=== PATIENT | female | born 1935 | race Caucasian/White ===

== ENCOUNTER 2018-09-30 03:09 | Inpatient (IN) | payer OTHER, MEDICAID ==
[~2018-09-30] VITALS: Ht 175.3 cm; Wt 81.2 kg
[2018-09-30] VITALS (35 sets, daily range): BP systolic 66–151; BP diastolic 32–66
[~2018-09-30 03:09] MED LIST: ASPIR 8181 MG GT; ATORVASTATIN CA20 MG GT; CARAFATE1 G1 GT; CEFEPIME-D2 GM/50 ML IVPB; CLARITIN10 M2 GT; CRANBERRY425 MG GT; DOCUSATE S50 MG/5 ML GT; DUONEB 0.5-3(2.53 ML HHN; EXELON9.5 MG TD; KENALOG 0.1% CR15 GM TOPIC; MIRALAX17 G2 GT; MULTI-DELYN237 ML GT; NAMENDA10 MG GT; NOVOLOG100 UNITS1 SQ; NYSTATIN1 EAC1 TOPIC; TYLENOL325 MG GT; TYLENOL650 MG/20. GT; VANCOMYCIN1 GM/2502 IVPB; VITAMIN C500 MG/11 GT; ZOSYN 3.373.375 GM/1 IVPB
--- NOTE | 2018-09-30 03:20 | NUR ---
ED Nurse Note: pt brought in by ESTELA from [facility], c/o sob and hypotension, pt initially sat 86% but went up to 100% on nonrebreather, pt currently o2sat 96% on RA, noted low bp, 66/32, ERMD aware pt's condition, pt AA&ox0, confused, resp even and unlabored on RA, noted gtube, on bedrest, noted redness on coccyx, redness on right heel, will cont monitor. sinus tach on panel monitor.
--- NOTE | 2018-09-30 03:22 | Emergency Room Report ---
History of Present Illness General Source: Medical Record, EMS Present Illness HPI This is an 83-year-old female with multiple medical problems. She is a halfway patient is bedbound with feeding tube. She presents with chief complaint is altered mental status with respiratory distress, hypoxia, hypotension and warm to the touch. Onset tonight. She has a nonproductive cough. Unable to get any other history from this patient because of her condition. Allergies: Coded Allergies: SULFA (SULFONAMIDE ANTIBIOTICS) (Unverified Allergy, Unknown, 09/30/18) COPIED FROM UNCODED Patient History Past Medical History: see triage record, old chart reviewed, DM, HTN, CAD, CVA/ TIA Past Surgical History: other Pertinent Family History: none Social History: Denies: smoking Nursing Documentation-PMH Hx Cardiac Problems: Yes Hx Hypertension: Yes Hx Diabetes: Yes Hx Cancer: No Hx Gastrointestinal Problems: Yes Hx Neurological Problems: Yes Hx Dementia: Yes Review of Systems Constitutional: Reports: fever, weakness Eye: Denies: eye pain, blurred vision ENT: Denies: ear pain, nose congestion, throat swelling Respiratory: Reports: cough, shortness of breath Cardiovascular: Denies: chest pain, palpitations Gastrointestinal: Denies: abdominal pain, diarrhea, nausea, vomiting Musculoskeletal: Denies: back pain, joint pain Skin: Denies: rash Neurological: Denies: headache, numbness Endocrine: Denies: increased thirst, increased urine Hematologic/Lymphatic: Denies: easy bruising All Other Systems: negative except mentioned in HPI Physical Exam Sp02 EP Interpretation: abnormal General Appearance: mild distress Head: normocephalic, atraumatic Eyes: bilateral eye PERRL, bilateral eye EOMI ENT: hearing grossly normal, dry mucus membranes Neck: full range of motion, supple, no meningismus Respiratory: chest non-tender, decreased breath sounds, accessory muscle use, rhonchi Cardiovascular #1: regular rate, rhythm, no murmur Gastrointestinal: normal bowel sounds, non tender, no mass, no organomegaly, no bruit, non-distended Musculoskeletal: back normal, normal range of motion Neurologic: other - Moaning to painful stimuli Skin: warm/dry Procedures Critical Care Time Critical Care Time Critical care is mandated in this patient who presented with septic shock from uti. Patient require my urgent intervention to attenuate the risks of metabolic collapse which may lead to cardiovascular collapse and . Critical care time is 35 minutes excluding any reportable procedure. Critical care time included evaluation, multiple reevaluation, looking at old charts, interpreting laboratory and diagnostic data, discussing case with patient and family and consultants, and charting. Central Line Central Line : Consent: Emergent Central Line Lumen: triple Maximal Sterile Barrier Tech: yes cap, yes mask, yes sterile gown, yes sterile gloves, yes large sterile sheet, yes hand hygiene, yes chlorhexidine prep Central Line Postion: femoral (R) Anesthesia: Lidocaine cc's of anesthesia: 10 Complications: none Central Line Post Position: sutured, good blood return Attempts: One Patient Tolerated: Well Complications: None Medical Decision Making Diagnostic Impression: Primary Impression: Septic shock Additional Impressions: UTI (urinary tract infection) Qualified Codes: N30.00 - Acute cystitis without hematuria Acute metabolic encephalopathy Acute renal failure (ARF) Qualified Codes: N17.9 - Acute kidney failure, unspecified Anemia Qualified Codes: D64.9 - Anemia, unspecified ER Course Patient with septic shock from UTI. Blood pressure remained asystolic 70 to 80s after 3 L of fluid. I inserted a central line to start Levophed. Her mentation improved. She is able to talk more and able to complaining of pain IV insertion. Initially oxygenation was low and she has some coughing. Oxygenation remained 96-98% on room air. Chest x-rays clear. I discussed the case with Dr. East who will admit based on insurance. Lab Results Impression labs with elevated lactic acid and WBC EKG Diagnostic Results Rate: normal, tachycardiac Rhythm: NSR ST Segments: no acute changes Rhythm Strip Diag. Results EP Interpretation: yes Rate: 88 Rhythm: NSR, no PVC's, no ectopy Status: improved Disposition: ADMITTED INPATIENT Condition: Critical Emory Patricia MD Sep 30, 2018 03:22
--- NOTE | 2018-09-30 03:50 | NUR ---
ED Nurse Note: pt rectal temp 100.3, ERMD notified, received verbal order for tylenol 650mg supp.
[2018-09-30] MEDS ORDERED: Acetaminophen 650 MG SUPP RECTAL ONE ×2 (03:55→04:00)
[2018-09-30 03:57] LABS: HEMATOCRIT 31.6 % (37.0-47.0); HEMOGLOBIN 10.2 G/DL (12.0-16.0); MEAN CORPUSCULAR VOLUME 104 FL (80-99); PLATELET COUNT 227 K/UL (150-450); RED BLOOD COUNT 3.05 M/UL (4.20-5.40); RED CELL DISTRIBUTION WIDTH 13.7 % (11.6-14.8)
[2018-09-30 03:57] LABS: APPEARANCE,URINE CLOUDY; BILIRUBIN, URINE NEGATIVE (NEGATIVE); GLUCOSE, URINE (UA) NEGATIVE (NEGATIVE); KETONES,URINE NEGATIVE (NEGATIVE); LEUKOCYTE ESTERASE ,URINE 3+ (NEGATIVE); NITRITE,URINE NEGATIVE (NEGATIVE); PH,URINE 7 (4.5-8.0); PROTEIN,URINE 3+ (NEGATIVE); UROBILINOGEN,URINE 1 MG/DL (0.0-1.0)
[2018-09-30 03:59] LABS: ANION GAP 14 mmol/L (5-15); BLOOD UREA NITROGEN 73 mg/dL (7-18); CALCIUM 8.7 MG/DL (8.5-10.1); CARBON DIOXIDE 25 MMOL/L (21-32); CHLORIDE 103 MMOL/L (98-107); CREATININE 3.5 MG/DL (0.55-1.30); POTASSIUM 3.9 MMOL/L (3.5-5.1); SODIUM 142 MMOL/L (136-145); WHITE BLOOD COUNT 36.5 K/UL (4.8-10.8)
[2018-09-30 04:01] LABS: COLOR,URINE YELLOW
[2018-09-30 04:23] LABS: ALANINE AMINOTRANSFERASE 37 U/L (12-78); ALBUMIN 2.2 G/DL (3.4-5.0); ALBUMIN/GLOBULIN RATIO 0.4 (1.0-2.7); ALKALINE PHOSPHATASE 110 U/L (46-116); ASPARTATE AMINO TRANSFERASE 27 U/L (15-37); BILIRUBIN,TOTAL 0.5 MG/DL (0.2-1.0); CKMB < 0.5 NG/ML (0.0-3.6); CREATINE KINASE 203 U/L (26-308)
--- NOTE | 2018-09-30 04:23 | NUR ---
ED Nurse Note: pt care endorsed to DAKOTA garner and gave report.
[2018-09-30] MEDS ORDERED: Cefepime HCl 1 GM in D5W 55 ML IVPB ONE (04:30)
--- NOTE | 2018-09-30 05:07 | NUR ---
ED Nurse Note: spoke with Yashira clinical coordinator for admission.
--- NOTE | 2018-09-30 06:00 | NUR ---
ER Nurse Note: Central line inserted right groin; infusing levo startimg 15 mcg/min. Monitoring BP. Temp at 96.6 rectal. Pt asleep; no signs of a/e. Bed in lowest position. Attempted to call report to ICU nurse, nurse busy and said they will call back. Will continue to monitor.
--- NOTE | 2018-09-30 06:50 | NUR ---
ER Nurse Note: Gave report to DAKOTA Brian in ICU. Per ICU request, transfer pt after 0700. Pt stable, maintaining average BP of 97/41. All safety measures met; will continue to monitor.
--- NOTE | 2018-09-30 07:25 | NUR ---
ER Nurse Note: Gave report to DAKOTA Mayen in ICU for continuity of care. Pt on levo, 8 mcg/min, stable BP; tolerating well. No signs of distress.
--- NOTE | 2018-09-30 07:30 | NUR ---
NURSE NOTES: Report received from DAKOTA Larid. patient is asleep, responds to deep pain. Patient on RA, Spo2 96%, RR 16. No s/sx of distress noted. breath sounds are diminished with crackles. FC draining yellow urine with sediments. Afebrile. bilateral heels redness noted, pictures taken and uploaded. Pt has a right femoral TLC running levophed at 8mcg/kg/hr, BP 106/59, MAP 63. PEG noted, dressing clean and intact, NPO, clamped. NSR on air sampling and monitoring. Bed locked, alarmed and in lowest position.
--- NOTE | 2018-09-30 09:23 | NUR ---
NURSE NOTES: continue levophed 8mcg/kg/hr, BP 91/53. Patient still sleeping but able to arouse.
[2018-09-30] MEDS ORDERED: Vancomycin 1gm/D5W 275ml IVPB SCH ×2 (11:00)
[2018-09-30] MEDS ORDERED: NovoLOG Insulin Flexpen SUBQ SCH (11:30)
--- NOTE | 2018-09-30 11:30 | NUR ---
NURSE NOTES: Turned and repositioned. Started GTF: G1.2@25ml/hr. Flushed with 60cc free water, HOB 35 degrees.
--- NOTE | 2018-09-30 11:46 | History and Physical Report ---
DATE OF ADMISSION: 09/30/2018 HISTORY OF PRESENT ILLNESS: This 83-year-old female with a history of multiple medical problems. She is a Full Code. She was sent from a senior care with a G-tube in place. Apparently, she was found to have a change in mental status and also had respiratory distress and hypoxia. She was also found to be hypotensive. She was seen and worked up in the ER. She was found to have pyuria on assessment. She is also in septic shock, requiring pressors. A central line was placed in the femoral vein and she is now in the ICU under my care. PAST MEDICAL HISTORY: Notable for, 1. Chronic renal insufficiency/failure. 2. diabetes mellitus. 3. COPD. 4. Dementia. 5. Hypertension. 6. History of duodenal ulcer. 7. GERD. 8. Chronic gastrostomy. 9. Osteoarthrosis. 10. Metabolic encephalopathy, chronic. 11. Hypernatremia. 12. Hypertensive heart disease. 13. Chronic diastolic heart failure. 14. Anemia. 15. Hyperlipidemia. MEDICATIONS: Her list of home medications include Lipitor, Colace, Exelon patch, Humalog, iron, Namenda, multivitamins, Zantac, Tylenol, and vitamin C. ALLERGIES: Noted to sulfa. PAST SURGICAL HISTORY: Chronic surgery notable for G-tube placement. CODE STATUS: Full. REVIEW OF SYSTEMS: Not obtainable. PHYSICAL EXAMINATION: GENERAL: Reveals an 83-year-old female. HEENT: Unremarkable. CHEST: Shows decreased breath sounds bilaterally. CARDIOVASCULAR: Heart sounds normal, S1 and S2 without murmurs. EXTREMITIES: There is no edema. A Scales is in place. G-tube in place. There are no obvious decubiti. IMAGING DATA: X-ray of chest is unremarkable. LABORATORY DATA: Lab testing shows white count 36,000, hemoglobin 10.2, and platelet count is normal. Chemistries notable for creatinine 3.5. Lactic acid 2.9, now it is 2.3. Troponin 0.68. Coags are normal. Urinalysis shows too numerous to count wbc. IMPRESSION: 1. Pyuria. 2. Urosepsis. 3. Septic shock. 4. Diabetes mellitus. 5. Hypertension. 6. Diastolic heart failure. 7. Dementia. 8. Chronic encephalopathy. 9. senior care resident. 10. Chronic G-tube. DISCUSSION: Admitted to ICU. We will initiate pressors for hypotension. We will start broad-spectrum IV antibiotics. Await urine culture. IV fluids to be given. DVT prophylaxis. Insulin sliding scale. Enteral feedings. We will follow carefully. Maxim East M.D. DR: MARY JANE JOB#: [id number] CC:
[2018-09-30] MEDS: cefTRIAXone 1 GM in D5W 55 ML IVPB SCH (11:58)
--- NOTE | 2018-09-30 16:37 | NUR ---
NURSE NOTES: Increased Levophed to 10mcg/kg/hr. BP 80/56, MAP 43. Will continue to monitor.
--- NOTE | 2018-09-30 17:51 | NUR ---
NURSE NOTES: Decreased Levophed to 8mcg/kg/hr as patient's BP dropped to 78/81. Will continue to monitor.
[2018-09-30] MEDS: NovoLOG Insulin Flexpen SUBQ SCH ×2 (18:00→23:37)
--- NOTE | 2018-09-30 19:42 | NUR ---
HAND-OFF: Report given to DAKOTA Brian using SBAR. Patient observed asleep but able to arouse. BP 103/48.
--- NOTE | 2018-09-30 19:50 | NUR ---
NURSE NOTES: PATIENT OPEN EYES, DID NOT FOLLOW COMMANDS, RESPIRATION REGULAR, TACH[place]NEA 22-24/MIN NOTED ON ROOM AIR, O2 SATURATION OVER 96%, ABDOMEN SOFT, HYPOACTIVE BOWEL SOUND TO 4 QUADRANTS, G TUBE INTACT AND PATENT, ONGOING GLUCERNA 1.2 AT 40ML/HR, NO RESIDUE NOTED, KEPT HOB OVER 30 DEGREE, F/C INTACT AND PATENT, YELLOW WITH SEDIMENTS URINE OUTED GRAVITY, TLC TO RIGHT FEMORAL, PERIPHERAL LINE TO RIGHT AC 18G AND LEFT WRIST 20G INTACT AND PATENT, ONGOING IV FLUID NS AT 100ML/HR AND LEVOPHED 8MCG/MIN VIA TLC, MADE LOWER BED POSITION, PROVIDED CALL LIGHT WITHIN REACH, WILL CONTINUE TO MONITOR.
[2018-09-30] MEDS ORDERED: Dyna-Hex 2% Top Sol 2oz TOPIC SCH (20:00)
[2018-09-30] MEDS: Heparin 5000 units/ml inj SUBQ SCH (21:16)
--- NOTE | 2018-09-30 22:00 | NUR ---
NURSE NOTES: REPOSITIONED, ORAL CARE WAS DONE, NO PAIN OR DISTRESS NOTED AT THIS TIME.
--- NOTE | 2018-09-30 23:15 | NUR ---
NURSE NOTES: INCREASED LEVOPHED TO 10MCG/MIN DUE TO BELOW MAP 60, WILL CONTINUE TO MONITOR.
[2018-10-01] VITALS (46 sets, daily range): BP systolic 78–126; BP diastolic 30–87
--- NOTE | 2018-10-01 00:05 | NUR ---
NURSE NOTES: TEMP 100.1F NOTED, APPLIED COOLING MEASURE, WILL CONTINUE TO MONITOR.
--- NOTE | 2018-10-01 01:40 | NUR ---
NURSE NOTES: CLEANED THE PATIENT DUE TO BOWEL MOVEMENT, GREENISH SOFT MODERATE OUTED.
--- NOTE | 2018-10-01 04:00 | NUR ---
NURSE NOTES: MORNING CARE WAS DONE, RESISTANCE TO CARE.
[2018-10-01] MEDS: NovoLOG Insulin Flexpen SUBQ SCH ×4 (06:02→23:50)
[2018-10-01 06:06] LABS: HEMATOCRIT 26.4 % (37.0-47.0); HEMOGLOBIN 8.7 G/DL (12.0-16.0); MEAN CORPUSCULAR VOLUME 105 FL (80-99); PLATELET COUNT 205 K/UL (150-450); RED BLOOD COUNT 2.52 M/UL (4.20-5.40); RED CELL DISTRIBUTION WIDTH 13.8 % (11.6-14.8); WHITE BLOOD COUNT 21.1 K/UL (4.8-10.8)
[2018-10-01 06:16] LABS: ANION GAP 14 mmol/L (5-15); BLOOD UREA NITROGEN 55 mg/dL (7-18); CALCIUM 7.4 MG/DL (8.5-10.1); CARBON DIOXIDE 20 MMOL/L (21-32); CHLORIDE 110 MMOL/L (98-107); CREATININE 2.6 MG/DL (0.55-1.30); POTASSIUM 3.3 MMOL/L (3.5-5.1); SODIUM 143 MMOL/L (136-145)
--- NOTE | 2018-10-01 07:05 | NUR ---
HAND-OFF: Report given to DAKOTA HOLT.
--- NOTE | 2018-10-01 07:09 | NUR ---
NURSE NOTES: Received pt from DAKOTA Brina. pt is awake, non-verbal and confused. Tracks eyes sometimes. Patient is on RA, Spo2 96%. No facial grimacing or wincing noted. Patient axillary temp is 100.8, awaiting for reply from PMD for Tylenol. Right femoral TLC running levophed 10mcg/kg/hr. BP 103/46, MAP 80. RAC 18G and LW 20G running NS@100cc/hr. Breathing even and unlabored. bilateral breath sounds diminished with crackles. Patient has a PEG running glucerna 1.2@40cc/hr, no residual noted, HOB 35 degrees, normoactive bowel sounds. Bed locked, alarmed and in lowest position. Will continue plan of care.
--- NOTE | 2018-10-01 07:37 | NUR ---
NURSE NOTES: Paged Dr. East regarding potassium=3.3 and axillary temp of 100.8. patient has no PRN Tylenol orders. Cooling measures applied.
[2018-10-01] MEDS: Pantoprazole Inj IV SCH (08:30)
[2018-10-01] MEDS: Heparin 5000 units/ml inj SUBQ SCH ×2 (08:31→20:41)
[2018-10-01] MEDS ORDERED: Vancomycin 1.25gm Premix IVPB SCH (09:00)
--- NOTE | 2018-10-01 09:04 | NUR ---
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 [place] [facility] CC:Dyspnea/ Respiratory Distress SI:Sepsis, UTI VS: BP 66/32, P 120, T 100.3, RR 20, SpO2 96 on Room Air WBC 36.5, RBC 3.05, Urine Protein 3+, Urine Blood 4+, Urine Bacteria MANY IS:Norepinephrine IV Vancomycin IVPB NS IV x1L NovoLog SUBQ Ceftriaxone IVPB Chlorhexidine TOPICAL ICU STATUS DC TO [facility]
--- NOTE | 2018-10-01 09:19 | NUR ---
NURSE NOTES: Received orders for Tylenol 650mg GT Q4hrs and K-dur 40meq GT x1. Read back given and verified.
--- NOTE | 2018-10-01 09:50 | Pulmonology Progress Note ---
Assessment/Plan Assessment/Plan IMPRESSION: 1. Pyuria. 2. Urosepsis. 3. Septic shock. 4. Diabetes mellitus. 5. Hypertension. 6. Diastolic heart failure. 7. Dementia. 8. Chronic encephalopathy. 9. senior living resident. 10. Chronic G-tube. 11. Hypokalemia DISCUSSION: Continue pressors for hypotension. Continue broad-spectrum IV antibiotics. Await urine culture. IV fluids to be given. DVT prophylaxis. Insulin sliding scale. Enteral feedings. I will follow carefully. Subjective Interval Events: Remains on pressors; K low Constitutional: Reports: no symptoms HEENT: Repors: no symptoms Respiratory: Reports: no symptoms Cardiovascular: Reports: no symptoms Gastrointestinal/Abdominal: Reports: no symptoms Genitourinary: Reports: no symptoms Allergies: Coded Allergies: SULFA (SULFONAMIDE ANTIBIOTICS) (Unverified Allergy, Unknown, 09/30/18) COPIED FROM UNCODED Objective Last 24 Hour Vital Signs Date Time Temp Pulse Resp B/P (MAP) Pulse Ox O2 Delivery O2 Flow Rate FiO2 10/01/18 08:37 109/41 10/01/18 08:00 Room Air 10/01/18 06:30 93 27 109/41 (63) 99 10/01/18 06:00 99.8 101 31 111/45 (67) 96 10/01/18 06:00 111/45 10/01/18 05:30 100 26 114/54 (74) 97 10/01/18 05:00 93 29 112/51 (71) 96 10/01/18 05:00 112/51 10/01/18 04:30 96 27 105/46 (65) 97 10/01/18 04:00 Room Air 10/01/18 04:00 113/52 10/01/18 04:00 99.3 99 30 113/52 (72) 95 10/01/18 03:49 99 10/01/18 03:30 102 27 119/52 (74) 97 10/01/18 03:00 108/52 10/01/18 03:00 97 29 108/52 (70) 98 10/01/18 02:30 95 27 112/46 (68) 97 10/01/18 02:00 112/49 10/01/18 02:00 95 29 112/49 (70) 96 10/01/18 01:39 114/48 10/01/18 01:30 94 27 114/48 (70) 93 10/01/18 01:00 98 26 100/48 (65) 97 10/01/18 01:00 100/48 10/01/18 00:30 103 26 108/46 (66) 97 10/01/18 00:15 107 10/01/18 00:00 105/45 10/01/18 00:00 100.1 94 26 105/45 (65) 97 10/01/18 00:00 Room Air 09/30/18 23:30 90 26 101/42 (61) 97 09/30/18 23:15 93/43 09/30/18 23:00 89 26 96/46 (63) 97 09/30/18 22:30 87 26 96/45 (62) 97 09/30/18 22:00 91 26 93/44 (60) 97 09/30/18 21:30 87 26 95/49 (64) 97 09/30/18 21:00 86 27 105/51 (69) 97 09/30/18 21:00 105/51 09/30/18 20:30 84 19 107/50 (69) 97 09/30/18 20:00 Room Air 09/30/18 20:00 102/49 09/30/18 20:00 99.2 85 22 102/49 (66) 97 09/30/18 19:56 100 09/30/18 19:30 85 29 103/48 (66) 97 09/30/18 19:00 97/51 09/30/18 19:00 82 16 102/56 (71) 96 09/30/18 18:30 83 16 87/52 (64) 96 09/30/18 18:00 85 16 80/44 (56) 96 09/30/18 17:30 88 17 122/51 (74) 95 09/30/18 17:10 87/40 09/30/18 17:00 86 18 151/66 (94) 96 09/30/18 16:30 82 16 105/50 (68) 96 09/30/18 16:04 81 09/30/18 16:00 98.7 81 16 94/47 (63) 97 09/30/18 16:00 Room Air 09/30/18 15:30 79 13 87/40 (56) 97 09/30/18 15:00 79 15 97/42 (60) 97 09/30/18 14:30 84 14 92/47 (62) 98 09/30/18 14:00 78 14 94/49 (64) 98 09/30/18 13:30 75 14 89/49 (62) 98 09/30/18 13:00 79 14 112/51 (71) 98 09/30/18 12:30 75 14 104/49 (67) 98 09/30/18 12:00 97.6 75 14 88/48 (61) 98 09/30/18 12:00 79 09/30/18 12:00 Room Air 09/30/18 11:30 75 14 101/51 (68) 98 09/30/18 11:00 75 14 101/51 (68) 98 09/30/18 10:30 76 14 107/58 (74) 96 09/30/18 10:00 78 14 111/64 (80) 96 Intake and Output 09/30/18 10/01/18 18:59 06:59 Intake Total 3775 ml 2091.0 ml Output Total 900 ml 865 ml Balance 2875 ml 1226.0 ml Intake Free Water 60 ml IV Total 3500 ml 1611.0 ml Tube Feeding 215 ml 480 ml Output Urine Total 900 ml 865 ml # Voids 2 # Bowel Movements 2 General Appearance: no acute distress HEENT: normocephalic Respiratory/Chest: chest wall non-tender, lungs clear Cardiovascular: normal peripheral pulses, normal rate Abdomen: normal bowel sounds, soft, non tender Microbiology Date/Time Source Procedure Growth Status 09/30/18 02:25 Blood Blood Culture - Preliminary NO GROWTH AFTER 24 HOURS Resulted 09/30/18 02:10 Blood Blood Culture - Preliminary NO GROWTH AFTER 24 HOURS Resulted 09/30/18 03:35 Urine,Clean Catch Urine Culture - Preliminary Gram Negative Bacillus 1 Resulted Laboratory Tests 09/30/18 09:55: Lactic Acid Level 1.30, Troponin I 0.037 10/01/18 05:20: Troponin I 0.034, White Blood Count 21.1H, Red Blood Count 2.52L, Hemoglobin 8.7L, Hematocrit 26.4L, Mean Corpuscular Volume 105H, Mean Corpuscular Hemoglobin 34.5H, Mean Corpuscular Hemoglobin Concent 32.9, Red Cell Distribution Width 13.8, Platelet Count 205, Mean Platelet Volume 9.4, Neutrophils (%) (Auto) , Lymphocytes (%) (Auto) , Monocytes (%) (Auto) , Eosinophils (%) (Auto) , Basophils (%) (Auto) , Differential Total Cells Counted 100, Neutrophils % (Manual) 84H, Lymphocytes % (Manual) 13L, Monocytes % (Manual) 3, Eosinophils % (Manual) 0, Basophils % (Manual) 0, Band Neutrophils 0, Platelet Estimate Adequate, Platelet Morphology Normal, Macrocytosis 1+, Sodium Level 143, Potassium Level 3.3L, Chloride Level 110H, Carbon Dioxide Level 20L, Anion Gap 14, Blood Urea Nitrogen 55H, Creatinine 2.6H , Estimat Glomerular Filtration Rate , Glucose Level 205H, Calcium Level 7.4L, Random Vancomycin Level 11.1 Current Medications Medications (Trade) Dose Ordered Sig/Chandu Route PRN Reason Start Time Stop Time Status Last Admin Dose Admin Acetaminophen (Tylenol) 650 mg Q4H PRN ORAL Mild Pain/Temp > 100.5 10/01/18 09:30 10/31/18 09:29 Ceftriaxone Sodium 1 gm/ Dextrose 55 ml @ 110 mls/hr Q24H IVPB 09/30/18 12:00 10/07/18 11:59 09/30/18 11:58 Chlorhexidine Gluconate (Sue-Hex 2%) 1 applic DAILY@2000 TOPIC 09/30/18 20:00 10/30/18 19:59 09/30/18 20:03 Dextrose (Dextrose 50%) 25 ml Q30M PRN IV Hypoglycemia 09/30/18 09:30 10/30/18 09:29 Dextrose (Dextrose 50%) 50 ml Q30M PRN IV Hypoglycemia 09/30/18 09:30 10/30/18 09:29 Heparin Sodium (Porcine) (Heparin 5000 units/ml) 5,000 units EVERY 12 HOURS SUBQ 09/30/18 21:00 10/30/18 20:59 10/01/18 08:31 Insulin Aspart (NovoLOG) Q6HR SUBQ 09/30/18 18:00 10/30/18 17:59 10/01/18 06:02 Norepinephrine Bitartrate 4 mg/ Dextrose 250 ml @ 0 mls/hr Q24H IV 09/30/18 17:00 10/30/18 16:59 10/01/18 08:37 Pantoprazole (Protonix) 40 mg DAILY IV 10/01/18 09:00 10/31/18 08:59 10/01/18 08:30 Potassium Chloride (K-Dur) 40 meq ONCE GT 10/01/18 09:30 10/01/18 10:30 10/01/18 09:35 Sodium Chloride 1,000 ml @ 100 mls/hr Q10H IVLG 09/30/18 10:00 10/30/18 09:59 09/30/18 23:39 Vancomycin HCl (Vanco rx to dose) 1 ea DAILY PRN MISC Per rx protocol 09/30/18 09:30 10/30/18 09:29 Vancomycin HCl/ Dextrose 275 ml @ 183.333 mls/hr ONCE IVPB 10/01/18 09:00 10/01/18 11:00 10/01/18 08:40 Maxim East MD Oct 01, 2018 09:50
--- NOTE | 2018-10-01 10:15 | NUR ---
RD ASSESSMENT & RECOMMENDATIONS SEE CARE ACTIVITY FOR COMPLETE ASSESSMENT DAILY ESTIMATED NEEDS: Needs based on sepsis, dm, TF ON SITE SOIL EVALUATOR 69kg 22-27 kcals/kg 0105-8059 total kcals 1-2 g protein/kg 69-138 g total protein 20-25 mL/kg 9216-3474 total fluid mLs NUTRITION DIAGNOSIS: 1) Increased kcal and protein needs r/t sepsis as evidenced by pt w/ critically elev WBC on adm (36.5), elev BG, febrile, on pressor support. 2) Chewing/ swallowing difficulty r/t dysphagia as evidenced by pt is GT dep. CURRENT TF: Glucerna 1.2 @40ml ENTERAL NUTRITION RECOMMENDATIONS: Glucerna 1.2 @55ml/hr x24 hrs to provide 1320ml, 1584 kcal, 79g prot, 1063ml free H2O - WITH HEMODYNAMIC STABILITY rec to increase TF goal by 10ml/hr q4-6 hrs to goal of 55ml/hr to better meet est needs - Flush per MD. HOB over 30 degrees On pressor support-> rec trophic feeds of 5-10ml/hr ADDITIONAL RECOMMENDATIONS: 1) Feed to goal w/ hemodynamic stability 2) Check lytes daily, replete as needed 3) Glycemic control 4) F/ up w/ WC eval for BL DTI 5) Calibrated bed scale wts
[2018-10-01] MEDS ORDERED: Heparin1,000 units/500ml Premix(Conc:2 units/ml) IV PRN (10:45)
[2018-10-01] MEDS ORDERED: Lidocaine 1% Plain 30 ml INJ PRN (10:45)
--- NOTE | 2018-10-01 10:47 | NUR ---
NURSE NOTES: Called several family members on facesheet to obtain telephone consent for PICC line insertion. Unable to reach and left voicemail. Awaiting for call back.
--- NOTE | 2018-10-01 12:00 | NUR ---
NURSE NOTES: Increased Levophed back to 8cg/kg/hr as patient's BP is 75/33, MAP 40.
[2018-10-01] MEDS: cefTRIAXone 1 GM in D5W 55 ML IVPB SCH (12:54)
--- NOTE | 2018-10-01 14:34 | NUR ---
NURSE NOTES: Pt is asleep, no s/sx of acute distress. Turned and repositioned. kept dry and clean.
--- NOTE | 2018-10-01 16:03 | Infectious Diseases Prog Note ---
Assessment/Plan Assessment/Plan Full consult dictated: A) 1) severe sepsis, shock, gram neg uti, sirs, leukocytosis, fevers, ? other source 2) allergies - sulfa 3) pmh noted P) 1) meropenem and vancomycin 2) check cultures, labs and chest x-ray 3) thank you Subjective Allergies: Coded Allergies: SULFA (SULFONAMIDE ANTIBIOTICS) (Unverified Allergy, Unknown, 09/30/18) COPIED FROM UNCODED Objective Vital Signs Last 24 Hour Vital Signs Date Time Temp Pulse Resp B/P (MAP) Pulse Ox O2 Delivery O2 Flow Rate FiO2 10/01/18 14:00 105/53 10/01/18 14:00 86 16 105/53 (70) 99 10/01/18 13:30 86 16 95/48 (64) 99 10/01/18 13:00 86 16 97/46 (63) 99 10/01/18 13:00 97/46 10/01/18 12:30 86 20 117/53 (74) 99 10/01/18 12:00 113/55 10/01/18 12:00 Room Air 10/01/18 12:00 97.5 86 24 113/55 (74) 99 10/01/18 11:30 93 27 83/42 (56) 99 10/01/18 11:00 89 27 78/30 (46) 99 10/01/18 11:00 78/30 10/01/18 10:30 91 27 104/40 (61) 99 10/01/18 10:00 111/87 10/01/18 10:00 98.9 90 27 111/87 (95) 99 10/01/18 09:30 100.0 94 27 114/41 (65) 99 10/01/18 09:00 93 27 102/44 (63) 99 10/01/18 09:00 114/41 10/01/18 08:37 109/41 10/01/18 08:30 94 27 97/40 (59) 99 10/01/18 08:00 Room Air 10/01/18 08:00 100.3 95 27 107/47 (67) 99 10/01/18 07:30 101.3 94 27 110/40 (63) 99 10/01/18 07:00 100.8 94 27 106/49 (68) 99 10/01/18 06:30 93 27 109/41 (63) 99 10/01/18 06:00 99.8 101 31 111/45 (67) 96 10/01/18 06:00 111/45 10/01/18 05:30 100 26 114/54 (74) 97 10/01/18 05:00 93 29 112/51 (71) 96 10/01/18 05:00 112/51 10/01/18 04:30 96 27 105/46 (65) 97 10/01/18 04:00 Room Air 10/01/18 04:00 113/52 10/01/18 04:00 99.3 99 30 113/52 (72) 95 10/01/18 03:49 99 10/01/18 03:30 102 27 119/52 (74) 97 10/01/18 03:00 108/52 10/01/18 03:00 97 29 108/52 (70) 98 10/01/18 02:30 95 27 112/46 (68) 97 10/01/18 02:00 112/49 10/01/18 02:00 95 29 112/49 (70) 96 10/01/18 01:39 114/48 10/01/18 01:30 94 27 114/48 (70) 93 10/01/18 01:00 98 26 100/48 (65) 97 10/01/18 01:00 100/48 10/01/18 00:30 103 26 108/46 (66) 97 10/01/18 00:15 107 10/01/18 00:00 105/45 10/01/18 00:00 100.1 94 26 105/45 (65) 97 10/01/18 00:00 Room Air 09/30/18 23:30 90 26 101/42 (61) 97 09/30/18 23:15 93/43 09/30/18 23:00 89 26 96/46 (63) 97 09/30/18 22:30 87 26 96/45 (62) 97 09/30/18 22:00 91 26 93/44 (60) 97 09/30/18 21:30 87 26 95/49 (64) 97 09/30/18 21:00 86 27 105/51 (69) 97 09/30/18 21:00 105/51 09/30/18 20:30 84 19 107/50 (69) 97 09/30/18 20:00 Room Air 09/30/18 20:00 102/49 09/30/18 20:00 99.2 85 22 102/49 (66) 97 09/30/18 19:56 100 09/30/18 19:30 85 29 103/48 (66) 97 09/30/18 19:00 97/51 09/30/18 19:00 82 16 102/56 (71) 96 09/30/18 18:30 83 16 87/52 (64) 96 09/30/18 18:00 85 16 80/44 (56) 96 09/30/18 17:30 88 17 122/51 (74) 95 09/30/18 17:10 87/40 09/30/18 17:00 86 18 151/66 (94) 96 09/30/18 16:30 82 16 105/50 (68) 96 09/30/18 16:04 81 09/30/18 16:00 98.7 81 16 94/47 (63) 97 09/30/18 16:00 Room Air Height (Feet): 5 Height (Inches): 9.00 Weight (Pounds): 173 Microbiology Date/Time Source Procedure Growth Status 09/30/18 02:25 Blood Blood Culture - Preliminary NO GROWTH AFTER 24 HOURS Resulted 09/30/18 02:10 Blood Blood Culture - Preliminary NO GROWTH AFTER 24 HOURS Resulted 09/30/18 03:35 Urine,Clean Catch Urine Culture - Preliminary Gram Negative Bacillus 1 Resulted Laboratory Tests Test 10/01/18 05:20 White Blood Count 21.1 K/UL (4.8-10.8) H Red Blood Count 2.52 M/UL (4.20-5.40) L Hemoglobin 8.7 G/DL (12.0-16.0) L Hematocrit 26.4 % (37.0-47.0) L Mean Corpuscular Volume 105 FL (80-99) H Mean Corpuscular Hemoglobin 34.5 PG (27.0-31.0) H Mean Corpuscular Hemoglobin Concent 32.9 G/DL (32.0-36.0) Red Cell Distribution Width 13.8 % (11.6-14.8) Platelet Count 205 K/UL (150-450) Mean Platelet Volume 9.4 FL (6.5-10.1) Neutrophils (%) (Auto) % (45.0-75.0) Lymphocytes (%) (Auto) % (20.0-45.0) Monocytes (%) (Auto) % (1.0-10.0) Eosinophils (%) (Auto) % (0.0-3.0) Basophils (%) (Auto) % (0.0-2.0) Differential Total Cells Counted 100 Neutrophils % (Manual) 84 % (45-75) H Lymphocytes % (Manual) 13 % (20-45) L Monocytes % (Manual) 3 % (1-10) Eosinophils % (Manual) 0 % (0-3) Basophils % (Manual) 0 % (0-2) Band Neutrophils 0 % (0-8) Platelet Estimate Adequate Platelet Morphology Normal Macrocytosis 1+ Sodium Level 143 MMOL/L (136-145) Potassium Level 3.3 MMOL/L (3.5-5.1) L Chloride Level 110 MMOL/L (98-107) H Carbon Dioxide Level 20 MMOL/L (21-32) L Anion Gap 14 mmol/L (5-15) Blood Urea Nitrogen 55 mg/dL (7-18) H Creatinine 2.6 MG/DL (0.55-1.30) H Estimat Glomerular Filtration Rate mL/min (>60) Glucose Level 205 MG/DL (74-106) H Calcium Level 7.4 MG/DL (8.5-10.1) L Troponin I 0.034 ng/mL (0.000-0.056) Random Vancomycin Level 11.1 ug/mL Current Medications Medications (Trade) Dose Ordered Sig/Chandu Route PRN Reason Start Time Stop Time Status Last Admin Dose Admin Acetaminophen (Tylenol) 650 mg Q4H PRN ORAL Mild Pain/Temp > 100.5 10/01/18 09:30 10/31/18 09:29 Ceftriaxone Sodium 1 gm/ Dextrose 55 ml @ 110 mls/hr Q24H IVPB 09/30/18 12:00 10/07/18 11:59 10/01/18 12:54 Chlorhexidine Gluconate (Sue-Hex 2%) 1 applic DAILY@2000 TOPIC 10/01/18 20:00 10/31/18 19:59 Dextrose (Dextrose 50%) 25 ml Q30M PRN IV Hypoglycemia 09/30/18 09:30 10/30/18 09:29 Dextrose (Dextrose 50%) 50 ml Q30M PRN IV Hypoglycemia 09/30/18 09:30 10/30/18 09:29 Heparin Sodium (Porcine) (Heparin 5000 units/ml) 5,000 units EVERY 12 HOURS SUBQ 09/30/18 21:00 10/30/18 20:59 10/01/18 08:31 Heparin Sodium/ Sodium Chloride (Heparin 1000 units/500ml Premix) 1,000 unit ONCE PRN IV picc line placement 10/01/18 10:45 10/03/18 10:44 Insulin Aspart (NovoLOG) Q6HR SUBQ 09/30/18 18:00 10/30/18 17:59 10/01/18 12:55 Lidocaine HCl (Xylocaine 1% 30ml) 30 ml ONCE PRN INJ picc line placement 10/01/18 10:45 10/03/18 10:44 Norepinephrine Bitartrate 4 mg/ Dextrose 250 ml @ 0 mls/hr Q24H IV 09/30/18 17:00 10/30/18 16:59 10/01/18 08:37 Pantoprazole (Protonix) 40 mg DAILY IV 10/01/18 09:00 10/31/18 08:59 10/01/18 08:30 Sodium Chloride 1,000 ml @ 100 mls/hr Q10H IVLG 09/30/18 10:00 10/30/18 09:59 09/30/18 23:39 Vancomycin HCl (Vanco rx to dose) 1 ea DAILY PRN MISC Per rx protocol 09/30/18 09:30 10/30/18 09:29 Blanca Leigh MD Oct 01, 2018 16:03
--- NOTE | 2018-10-01 16:55 | NUR ---
*-* INSURANCE *-* AVAILABLE CLINICALS AND REVIEWS FAXED TO: [facility]# [id number]*[facility], [place]: [place] P- [phone] F- [phone]
--- NOTE | 2018-10-01 19:24 | NUR ---
HAND-OFF: Report given to DAKOTA Brian using SBAR.
--- NOTE | 2018-10-01 19:24 | NUR ---
NURSE NOTES: Turned and repositioned. Kept dry and clean. No call from family members for T/O PICC consent. endorsed to PM shift.
[2018-10-01] MEDS: Dyna-Hex 2% Top Sol 2oz TOPIC SCH (19:40)
--- NOTE | 2018-10-01 19:40 | NUR ---
NURSE NOTES: PATIENT OPEN EYES, DID NOT FOLLOW COMMANDS, RESPIRATION REGULAR, TACHYPNEA 26-28/MIN NOTED ON ROOM AIR, O2 SATURATION OVER 96%, ABDOMEN SOFT, HYPOACTIVE BOWEL SOUND TO 4 QUADRANTS, G TUBE INTACT AND PATENT, ONGOING GLUCERNA 1.2 AT 40ML/HR, NO RESIDUE NOTED, KEPT HOB OVER 30 DEGREE, F/C INTACT AND PATENT, YELLOW WITH SEDIMENTS URINE OUTED GRAVITY, TLC TO RIGHT FEMORAL, PERIPHERAL LINE TO RIGHT AC 18G AND LEFT WRIST 20G INTACT AND PATENT, ONGOING IV FLUID NS AT 100ML/HR AND LEVOPHED 8MCG/MIN VIA TLC, MADE LOWER BED POSITION, PROVIDED CALL LIGHT WITHIN REACH, WILL CONTINUE TO MONITOR.
--- NOTE | 2018-10-01 20:02 | Consultation ---
DATE OF CONSULTATION: 10/01/2018 CONSULTING PHYSICIAN: Jakub García M.D. REFERRING PHYSICIAN: Maxim East M.D. REASON FOR CONSULTATION: 1. Acute kidney injury. 2. Chronic kidney disease stage 4, baseline creatinine 1.5 to 2. HISTORY OF PRESENT ILLNESS: The patient is a pleasant 83-year-old female with known multiple medical problems. She was sent from senior living with a G-tube in place. Apparently, she had acute encephalopathy with change in mental status and respiratory distress. She was found to be hypotensive and transferred to intensive care unit in septic shock secondary to urinary tract infection. Her creatinine upon admission was elevated at 3.5 with a BUN of 73. The patient was aggressively hydrated and hemodynamically stable. Creatinine has improved to 2.6, BUN down to 55. PAST MEDICAL HISTORY: 1. CKD stage 4. 2. Diabetes mellitus. 3. Chronic obstructive pulmonary disease. 4. Dementia. 5. Hypertension. 6. Duodenal ulcer 7. GERD. 8. Chronic gastrostomy. 9. Osteoarthritis. 10. Metabolic encephalopathy. 11. Hypernatremia. 12. Hypertensive heart disease. 13. Chronic diastolic heart failure. 14. Anemia. 15. Hyperlipidemia. PAST SURGICAL HISTORY: G-tube placement. CURRENT MEDICATIONS: Reviewed on medications reconciliation list. ALLERGIES: Sulfa. REVIEW OF SYSTEMS: Cannot obtain as the patient is not answering questions coherently. FAMILY HISTORY: Positive for hypertension and diabetes. LABORATORY DATA: Labs dated October 01, 2018 sodium 143, potassium 3.3, BUN 55, creatinine 2.6, calcium 7.4. Hemoglobin 8.7, white cell count 21.1, and platelet count 205. PHYSICAL EXAMINATION: VITAL SIGNS: Blood pressure 109/41, respiratory rate 27, pulse 93, temperature 100, 99% oxygen saturation on room air. GENERAL: The patient awake, somnolent, but arousable. HEENT: Extraocular muscles intact. No lymphadenopathy. Oropharyngeal mucosa is clear and dry. CARDIOVASCULAR: S1 and S2. Upper airway rhonchi. Fair air movement in all hinson. ABDOMEN: Nondistended and nontender. G-tube noted. EXTREMITIES: Trace edema bilaterally. Fair pedal pulses. ASSESSMENT AND PLAN: 1. Acute kidney injury on chronic kidney disease, stage 4. Baseline creatinine 1.5 to 2. Currently, creatinine has improved to 2.5. 2. Acute tubular necrosis secondary to ischemic acute tubular necrosis from hypotension and inflammatory cytokine injury to proximal tubules from sepsis. At this time, continue aggressive hemodynamic stability along with aggressive antibiotic treatment for underlying urosepsis. 3. Urosepsis. Continue IV pressor support with Levophed and aggressive hydration. The patient currently hemodynamically stable. 4. Urinary tract infection. Continue IV antibiotics. 5. Nutrition per G-tube. 6. Dehydration. We will continue IV fluids. Let me take this opportunity to thank Dr. East. Jakub García MD DR: Kylie JOB#: [id number] CC:
--- NOTE | 2018-10-01 22:05 | NUR ---
NURSE NOTES: PATIENT SLEEPING ON AND OFF, KEPT LEVOPHED 8MCG/MIN, WILL CONTINUE PLAN OF CARE.
--- NOTE | 2018-10-01 22:45 | Consultation ---
DATE OF CONSULTATION: 10/01/2018 INFECTIOUS DISEASE CONSULTATION CONSULTING PHYSICIAN: Blanca Leigh M.D. ATTENDING PHYSICIAN: Maxim East M.D. REFERRING PHYSICIAN: Maxim East M.D. REASON FOR CONSULTATION: Sepsis, shock, leukocytosis, fevers, and gram-negative urinary tract infection. CHIEF COMPLAINT: The patient's chief complaint coming in to the hospital is sepsis and shock. HISTORY OF PRESENT ILLNESS: This is an 83-year-old female, who is in the intensive care unit at [facility]. The patient was admitted for sepsis, elevated white count, and shock. The patient is currently on 8 mcg of Levophed. The patient has a white count initially over 30,000. Infectious Disease consultation was requested for antibiotic management. The patient was placed on vancomycin and meropenem. The patient has a gram-negative urinary tract infection. She has also acute renal failure, has severe sepsis, SIRS criteria, leukocytosis, and fevers. The patient is already on vancomycin and meropenem for sepsis and gram-negative urinary tract infection, pending workup. MAR was noted. Orders were noted. Notes and records were noted. REVIEW OF SYSTEMS: CONSTITUTIONAL: The patient has a Scales. She is on pressors. She is mostly nonverbal. Currently, no fever. She did come in with fevers. She is on pressors. HEAD AND NECK: No head pain or neck pain. CARDIAC: No chest pain. GASTROINTESTINAL: No nausea, vomiting, abdominal pain, or diarrhea. GENITOURINARY: She has a Scales. PULMONARY: No significant congestion or shortness of breath. SKIN: No rash. EXTREMITY: Could not assess. NEUROLOGIC: No seizures. PAST MEDICAL HISTORY: The patient's past medical history includes the following. The patient has a past medical history of chronic renal failure, elevated creatinine, diabetes mellitus, history of dementia, history of hypertension, history of chronic obstructive pulmonary disease, history of peptic ulcer disease or duodenal ulcers or GERD, history of gastrostomy, osteoarthritis, metabolic encephalopathy, hypernatremia, hypertensive heart disease, chronic diastolic heart failure, anemia, and hyperlipidemia. MEDICATIONS: Upon reviewing the MAR, she is on the following medications. She is on chlorhexidine, heparin, acetaminophen, pantoprazole, heparin, and insulin. She is on norepinephrine 8 mcg. She was on Rocephin and put on vancomycin and meropenem. She is on IV fluids. Vancomycin is being dosed by pharmacy. Outside medications were noted and reconciliated. ALLERGIES: She has allergies to sulfa drugs. FAMILY HISTORY: Noncontributory. SOCIAL HISTORY: Negative for smoking, alcohol, or drug abuse. PHYSICAL EXAMINATION: VITAL SIGNS: Temperature is 97.5, pulse 86, respiratory rate 16, blood pressure 105/53, and saturation 99%. T-max 101.3. Heart rate has been as high as 107. GENERAL: Alert and responsive, no acute distress. HEAD AND NECK: Oral exam, no thrush. Eye exam, no icterus. Neck is supple. No JVD. Normocephalic. No icterus or thrush. HEART: Regular. No gallop. No murmur. No friction rub. ABDOMEN: Soft. Positive bowel sounds. Nontender. LUNGS: Few bilateral rhonchi. No definite rales. SKIN: No rash. MUSCULOSKELETAL: No effusion. Legs are without cellulitis. PERIPHERAL VASCULAR: No cyanosis. GENITOURINARY: She has a Scales. Urine is cloudy. LINE SITES: Without phlebitis. NEUROLOGIC: Generalized weakness and responsive. LABORATORY DATA: Laboratory data is as follows: White count was as high as 36.5, white count now is 21.1, hemoglobin 8.7. Creatinine is 2.6. Urinalysis had 3+ leukocyte esterase, too many to count white blood cells, and many bacteria. Blood cultures are negative. Urine culture grew gram-positive and gram-negative rods. Blood culture is negative. Chest x-ray is pending at this time. ASSESSMENT AND PLAN: 1. The patient has sepsis and shock requiring pressor. She has SIRS criteria and severe sepsis. She has acute renal failure. She requires pressors. She has elevated white count or leukocytosis, fevers, SIRS criteria, severe sepsis with shock. Most likely source is gram-negative urinary tract infection and pyelonephritis with sepsis shock. Continue meropenem and vancomycin for MRSA gram-negative coverage. Continue vancomycin and meropenem. Check urine culture, laboratories, and chest x-ray. 2. The patient has acute kidney injury and elevated creatinine. 3. Anemia. 4. Intensive care unit care. 5. Diabetes. 6. Hypertension. 7. Blood sugar and blood pressure treatment for diabetes and hypertension per primary. 8. Hyperlipidemia. 9. Dementia. 10. Chronic obstructive pulmonary disease. 11. Gastroesophageal reflux disease. 12. Gastrostomy tube. 13. Osteoarthrosis. 14. Metabolic encephalopathy. 15. Hypertensive heart disease. 16. Congestive heart failure. 17. Allergies to sulfa drugs. 18. Social history is negative. 19. Family history is noncontributory. 20. MAR was noted. 21. Case was discussed with RN. 22. Continue treatment per primary consultants. Blanca Leigh M.D. DR: VICTORIA JOB#: [id number] CC:
[2018-10-02] VITALS (36 sets, daily range): BP systolic 97–152; BP diastolic 48–88
--- NOTE | 2018-10-02 00:22 | NUR ---
NURSE NOTES: PATIENT AWOKE, TRIED TO ORAL CARE BUT RESISTANCE TO CARE, GIVEN TYLENOL 650MG VIA G TUBE PRN FOR PAIN, WILL CONTINUE TO MONITOR.
--- NOTE | 2018-10-02 02:00 | NUR ---
NURSE NOTES: NO PAIN OR DISTRESS NOTED AT THIS TIME.
--- NOTE | 2018-10-02 04:05 | NUR ---
NURSE NOTES: PATIENT VERY ANXIOUS, FLUSHED FACE, AGITATED, COMBATIVE TO CARE, ENCOURAGED CALM DOWN BUT SLURRED SELF TALKING STATUS, BP 152/77 MM[facility] NOTED THAT HOLD LEVOPHED DRIP AT THIS TIME, WILL CONTINUE TO MONITOR.
--- NOTE | 2018-10-02 04:28 | NUR ---
NURSE NOTES: GIVEN TYLENOL 650MG VIA G TUBE DUE TO TEMP 100.9F, WILL CONTINUE TO MONITOR.
--- NOTE | 2018-10-02 05:30 | NUR ---
NURSE NOTES: RESTARTED LEVOPHED DRIP 2MCG/MIN, PATIENT SLIGHT CALM DOWN STATUS AT THIS TIME.
[2018-10-02] MEDS: NovoLOG Insulin Flexpen SUBQ SCH ×3 (05:45→18:13)
[2018-10-02 05:55] LABS: HEMATOCRIT 26.5 % (37.0-47.0); HEMOGLOBIN 8.4 G/DL (12.0-16.0); MEAN CORPUSCULAR VOLUME 105 FL (80-99); PLATELET COUNT 205 K/UL (150-450); RED BLOOD COUNT 2.52 M/UL (4.20-5.40); RED CELL DISTRIBUTION WIDTH 14.2 % (11.6-14.8); WHITE BLOOD COUNT 16.7 K/UL (4.8-10.8)
[2018-10-02 06:15] LABS: ANION GAP 14 mmol/L (5-15); BLOOD UREA NITROGEN 43 mg/dL (7-18); CALCIUM 7.1 MG/DL (8.5-10.1); CARBON DIOXIDE 19 MMOL/L (21-32); CHLORIDE 112 MMOL/L (98-107); CREATININE 2.3 MG/DL (0.55-1.30); POTASSIUM 3.7 MMOL/L (3.5-5.1); SODIUM 144 MMOL/L (136-145)
--- NOTE | 2018-10-02 07:15 | NUR ---
HAND-OFF: Report given to DAKOTA BROWNE.
--- NOTE | 2018-10-02 08:00 | NUR ---
NURSE NOTES: Received patient alert&oriented x1. Patient is non-verbal does not respond but able to track, opens eyes spontaneously, smiles and localizes pain. 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 Room air saturating 98%. G tube getting gluecerna 1.2 at 40 cc/hr. No residual. Lung sounds clear bilaterally. Scales catheter intact. Hypoactive bowel sounds present on all 4 quadrants. Large, soft, non-tender abdomen. R femoral TLC, R AC 18, L wrist 20. NS at 100 cc/hr. Levophed at 2 mcg/hr. Decreased to 1 to observe patient tolerance. No distress noted at this time. VSS. Will continue to monitor patient.
[2018-10-02] MEDS: Pantoprazole Inj IV SCH (08:23)
[2018-10-02] MEDS: Heparin 5000 units/ml inj SUBQ SCH ×2 (08:24→20:48)
--- NOTE | 2018-10-02 09:41 | Nephrology Progress Note ---
Assessment/Plan Assessment/Plan A/P 1) NAOMY on CKD 4 - mutlifact ATN due to hypotension and sepsis - Cr improving to 2.3 - wena off pressor support and continue Abx 2) Met Acidosis- hyperCL-. DC NsCL load 3) Septic Shock- urosepsis- Abx per ID 4) Hypotension- wean off levo and start ProAmtine Subjective Date patient seen: Oct 02, 2018 Time patient seen: 09:37 ROS Limited/Unobtainable: Yes Allergies: Coded Allergies: SULFA (SULFONAMIDE ANTIBIOTICS) (Unverified Allergy, Unknown, 09/30/18) COPIED FROM UNCODED Subjective Patient awake but not verbal Objective Last 24 Hour Vital Signs Date Time Temp Pulse Resp B/P (MAP) Pulse Ox O2 Delivery O2 Flow Rate FiO2 10/02/18 09:30 90 22 115/52 (73) 99 10/02/18 09:00 94 22 119/54 (75) 98 10/02/18 08:30 92 22 115/55 (75) 98 10/02/18 08:00 Room Air 10/02/18 08:00 99.2 90 22 118/55 (76) 98 10/02/18 08:00 94 10/02/18 07:30 95 22 98/52 (67) 98 10/02/18 07:00 97 23 97/50 (66) 98 10/02/18 06:30 99 23 99/54 (69) 98 10/02/18 06:00 99.5 104 26 100/48 (65) 98 10/02/18 06:00 100/48 10/02/18 05:30 98/48 10/02/18 05:30 112 28 98/48 (65) 97 10/02/18 05:00 110/49 10/02/18 05:00 120 31 110/49 (69) 97 10/02/18 04:58 100.9 10/02/18 04:45 100.9 119 28 118/53 (74) 98 10/02/18 04:30 151/98 10/02/18 04:30 131 33 151/88 (109) 98 10/02/18 04:00 100.9 121 25 152/77 (102) 95 10/02/18 04:00 152/77 10/02/18 04:00 Room Air 10/02/18 03:30 113 29 138/73 (94) 97 10/02/18 03:20 112 10/02/18 03:15 110 31 126/59 (81) 98 10/02/18 03:00 107/72 10/02/18 03:00 109 28 107/72 (84) 96 10/02/18 02:30 112/54 10/02/18 02:30 104 31 112/54 (73) 98 10/02/18 02:15 121/56 10/02/18 02:00 104 31 121/56 (77) 97 10/02/18 02:00 108/51 10/02/18 01:30 105 32 108/51 (70) 97 10/02/18 01:00 105 32 109/51 (70) 98 10/02/18 01:00 109/51 10/02/18 00:30 110 29 118/55 (76) 98 10/02/18 00:19 107 10/02/18 00:00 99.1 108 28 113/53 (73) 95 10/02/18 00:00 113/53 10/02/18 00:00 Room Air 10/01/18 23:30 104 30 115/46 (69) 95 10/01/18 23:00 110/56 10/01/18 23:00 102 30 110/56 (74) 95 10/01/18 22:30 102 30 110/52 (71) 95 10/01/18 22:00 114/56 10/01/18 22:00 104 31 111/56 (74) 95 10/01/18 21:30 101 29 102/48 (66) 95 10/01/18 21:00 103 10/01/18 21:00 94/45 10/01/18 21:00 103 28 94/45 (61) 98 10/01/18 20:30 98 28 118/55 (76) 98 10/01/18 20:00 Room Air 10/01/18 20:00 121/63 10/01/18 20:00 97.7 96 27 121/63 (82) 99 10/01/18 19:30 92 26 115/63 (80) 98 10/01/18 19:00 122/58 10/01/18 19:00 90 16 115/62 (79) 35 3/11/19 18:56 95/46 10/01/18 18:00 93 16 106/61 (76) 99 10/01/18 17:00 90 25 126/59 (81) 99 10/01/18 16:30 89 16 107/54 (71) 99 10/01/18 16:00 Room Air 10/01/18 16:00 98.6 88 16 113/55 (74) 99 10/01/18 16:00 87 10/01/18 15:30 87 16 105/52 (69) 99 10/01/18 15:00 86 16 121/61 (81) 99 10/01/18 14:30 86 16 115/52 (73) 99 10/01/18 14:00 105/53 10/01/18 14:00 86 16 105/53 (70) 99 10/01/18 13:30 86 16 95/48 (64) 99 10/01/18 13:00 86 16 97/46 (63) 99 10/01/18 13:00 97/46 10/01/18 12:30 86 20 117/53 (74) 99 10/01/18 12:00 92 10/01/18 12:00 113/55 10/01/18 12:00 Room Air 10/01/18 12:00 97.5 86 24 113/55 (74) 99 10/01/18 11:30 93 27 83/42 (56) 99 10/01/18 11:00 89 27 78/30 (46) 99 10/01/18 11:00 78/30 10/01/18 10:30 91 27 104/40 (61) 99 10/01/18 10:00 111/87 10/01/18 10:00 98.9 90 27 111/87 (95) 99 Intake and Output 10/01/18 10/02/18 19:00 07:00 Intake Total 2147.5 ml 2099.5 ml Output Total 800 ml 880 ml Balance 1347.5 ml 1219.5 ml Intake Free Water 180 ml IV Total 1487.5 ml 1519.5 ml Tube Feeding 480 ml 480 ml Other 100 ml Output Urine Total 800 ml 880 ml # Bowel Movements 1 2 Laboratory Tests 10/02/18 05:20: White Blood Count 16.7H, Red Blood Count 2.52L, Hemoglobin 8.4L, Hematocrit 26.5L, Mean Corpuscular Volume 105H, Mean Corpuscular Hemoglobin 33.5H, Mean Corpuscular Hemoglobin Concent 31.9L, Red Cell Distribution Width 14.2, Platelet Count 205, Mean Platelet Volume 9.4, Neutrophils (%) (Auto) , Lymphocytes (%) (Auto) , Monocytes (%) (Auto) , Eosinophils (%) (Auto) , Basophils (%) (Auto) , Differential Total Cells Counted 100, Neutrophils % ( Manual) 85H, Lymphocytes % (Manual) 8L, Monocytes % (Manual) 7, Eosinophils % ( Manual) 0, Basophils % (Manual) 0, Band Neutrophils 0, Platelet Estimate Adequate, Platelet Morphology Normal, Hypochromasia 2+, Anisocytosis 1+, Macrocytosis 1+, Sodium Level 144, Potassium Level 3.7, Chloride Level 112H, Carbon Dioxide Level 19L, Anion Gap 14, Blood Urea Nitrogen 43H, Creatinine 2.3H , Estimat Glomerular Filtration Rate , Glucose Level 158H, Calcium Level 7.1L, Troponin I 0.013 Height (Feet): 5 Height (Inches): 9.00 Weight (Pounds): 175 General Appearance: no apparent distress, alert EENT: normal ENT inspection Neck: normal alignment, supple Cardiovascular: normal rate, regular rhythm Respiratory/Chest: lungs clear, normal breath sounds Abdomen: non tender, soft Edema: no edema noted Arm (L), no edema noted Arm (R), no edema noted Leg (L), no edema noted Leg (R), no edema noted Pedal (L), no edema noted Pedal (R), no edema noted Generalized Jakub García MD Oct 02, 2018 09:41
[2018-10-02] MEDS: Midodrine 10mg tab ORAL SCH ×3 (09:45→18:11)
--- NOTE | 2018-10-02 10:00 | NUR ---
NURSE NOTES: Patient turned and repositioned. Calm and cooperative at this time. Levophed has been turned off. BP maintaining.
--- NOTE | 2018-10-02 12:00 | NUR ---
NURSE NOTES: Patient turned and repositioned. No new orders. Levophed has been off. Blood pressure stable. Will continue plan of care.
--- NOTE | 2018-10-02 12:24 | NUR ---
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
--- NOTE | 2018-10-02 12:33 | NUR ---
*-* INSURANCE *-* AVAILABLE CLINICALS AND REVIEWS FAXED TO: [facility]# [id number]*[facility]: [place] P- [phone] F- [phone]
--- NOTE | 2018-10-02 14:00 | NUR ---
NURSE NOTES: Complete linen change. Bowel movement x1. Brown soft large. Patient stable. VSS. Remains non-verbal. Pleasantly confused.
--- NOTE | 2018-10-02 15:55 | NUR ---
Social Service Note Patient has been a resident of since 01/2008. Patient smiles when name is called, non-verbal when SW asked questions. POLST completed by patient in 2010 indicates Full code, full treatment and trial period of artificial nutrition. Patient doesn't have an advance directive. Patient will continue to require intermediate card tender placement upon discharge. Anticipated return to [place] when medically appropriate.
--- NOTE | 2018-10-02 16:00 | NUR ---
NURSE NOTES: Patient turned and repositioned. No distress noted. BP stable. Patient stable. No new orders at this time. Turned and repositioned will continue to monitor patient.
--- NOTE | 2018-10-02 17:07 | Pulmonology Progress Note ---
Assessment/Plan Assessment/Plan IMPRESSION: 1. Pyuria. 2. Urosepsis. 3. Septic shock. 4. Diabetes mellitus. 5. Hypertension. 6. Diastolic heart failure. 7. Dementia. 8. Chronic encephalopathy. 9. custodial resident. 10. Chronic G-tube. 11. Hypokalemia; corrected DISCUSSION: no longer on pressors for hypotension. Continue broad-spectrum IV antibiotics. Await urine culture. IV fluids to be given. DVT prophylaxis. Insulin sliding scale. Enteral feedings. I will follow carefully. May transfer out of ICU Subjective Interval Events: Much better; off pressors Constitutional: Reports: no symptoms HEENT: Repors: no symptoms Respiratory: Reports: no symptoms Cardiovascular: Reports: no symptoms Gastrointestinal/Abdominal: Reports: no symptoms Genitourinary: Reports: no symptoms Allergies: Coded Allergies: SULFA (SULFONAMIDE ANTIBIOTICS) (Unverified Allergy, Unknown, 09/30/18) COPIED FROM UNCODED Objective Last 24 Hour Vital Signs Date Time Temp Pulse Resp B/P (MAP) Pulse Ox O2 Delivery O2 Flow Rate FiO2 10/02/18 17:00 94 20 130/65 (86) 99 10/02/18 16:00 94 10/02/18 16:00 Room Air 10/02/18 16:00 98.5 81 22 128/64 (85) 99 10/02/18 15:00 80 22 136/66 (89) 99 10/02/18 14:00 84 22 120/62 (81) 99 10/02/18 13:00 87 22 122/53 (76) 99 10/02/18 12:00 89 10/02/18 12:00 Room Air 10/02/18 12:00 98.9 86 20 136/64 (88) 99 10/02/18 11:00 90 22 118/68 (85) 99 10/02/18 10:00 94 22 117/55 (75) 99 10/02/18 09:30 90 22 115/52 (73) 99 10/02/18 09:00 94 22 119/54 (75) 98 10/02/18 08:30 92 22 115/55 (75) 98 10/02/18 08:00 Room Air 10/02/18 08:00 99.2 90 22 118/55 (76) 98 10/02/18 08:00 94 10/02/18 07:30 95 22 98/52 (67) 98 10/02/18 07:00 97 23 97/50 (66) 98 10/02/18 06:30 99 23 99/54 (69) 98 10/02/18 06:00 99.5 104 26 100/48 (65) 98 10/02/18 06:00 100/48 10/02/18 05:30 98/48 10/02/18 05:30 112 28 98/48 (65) 97 10/02/18 05:00 110/49 10/02/18 05:00 120 31 110/49 (69) 97 10/02/18 04:58 100.9 10/02/18 04:45 100.9 119 28 118/53 (74) 98 10/02/18 04:30 151/98 10/02/18 04:30 131 33 151/88 (109) 98 10/02/18 04:00 100.9 121 25 152/77 (102) 95 10/02/18 04:00 152/77 10/02/18 04:00 Room Air 10/02/18 03:30 113 29 138/73 (94) 97 10/02/18 03:20 112 10/02/18 03:15 110 31 126/59 (81) 98 10/02/18 03:00 107/72 10/02/18 03:00 109 28 107/72 (84) 96 10/02/18 02:30 112/54 10/02/18 02:30 104 31 112/54 (73) 98 10/02/18 02:15 121/56 10/02/18 02:00 104 31 121/56 (77) 97 10/02/18 02:00 108/51 10/02/18 01:30 105 32 108/51 (70) 97 10/02/18 01:00 105 32 109/51 (70) 98 10/02/18 01:00 109/51 10/02/18 00:30 110 29 118/55 (76) 98 10/02/18 00:19 107 10/02/18 00:00 99.1 108 28 113/53 (73) 95 10/02/18 00:00 113/53 10/02/18 00:00 Room Air 10/01/18 23:30 104 30 115/46 (69) 95 10/01/18 23:00 110/56 10/01/18 23:00 102 30 110/56 (74) 95 10/01/18 22:30 102 30 110/52 (71) 95 10/01/18 22:00 114/56 10/01/18 22:00 104 31 111/56 (74) 95 10/01/18 21:30 101 29 102/48 (66) 95 10/01/18 21:00 103 10/01/18 21:00 94/45 10/01/18 21:00 103 28 94/45 (61) 98 10/01/18 20:30 98 28 118/55 (76) 98 10/01/18 20:00 Room Air 10/01/18 20:00 121/63 10/01/18 20:00 97.7 96 27 121/63 (82) 99 10/01/18 19:30 92 26 115/63 (80) 98 10/01/18 19:00 122/58 10/01/18 19:00 90 16 115/62 (79) 35 10/01/18 18:56 95/46 10/01/18 18:00 93 16 106/61 (76) 99 Intake and Output 10/01/18 10/02/18 19:00 07:00 Intake Total 2147.5 ml 2099.5 ml Output Total 800 ml 880 ml Balance 1347.5 ml 1219.5 ml Intake Free Water 180 ml IV Total 1487.5 ml 1519.5 ml Tube Feeding 480 ml 480 ml Other 100 ml Output Urine Total 800 ml 880 ml # Bowel Movements 1 2 General Appearance: no acute distress HEENT: normocephalic Respiratory/Chest: chest wall non-tender, lungs clear Cardiovascular: normal peripheral pulses, normal rate Abdomen: soft, non tender, no organomegaly Microbiology Date/Time Source Procedure Growth Status 09/30/18 02:25 Blood Blood Culture - Preliminary NO GROWTH AFTER 48 HOURS Resulted 09/30/18 02:10 Blood Blood Culture - Preliminary NO GROWTH AFTER 48 HOURS Resulted 09/30/18 03:05 Nasal Nares MRSA Culture - Final NO METHICILLIN RESISTANT STAPH AUREUS... Complete 09/30/18 03:35 Urine,Clean Catch Urine Culture - Preliminary Proteus Mirabilis Gram Negative Bacillus 2 Gram Positive Cocci Resulted 3/10/19 03:05 Rectum VRE Culture - Final Enterococcus Faecalis - Vre Complete 09/30/18 03:05 Rectum - Final NO CARBAPENEM-RESISTANT ENTEROBACTERI... Complete Laboratory Tests 10/02/18 05:20: White Blood Count 16.7H, Red Blood Count 2.52L, Hemoglobin 8.4L, Hematocrit 26.5L, Mean Corpuscular Volume 105H, Mean Corpuscular Hemoglobin 33.5H, Mean Corpuscular Hemoglobin Concent 31.9L, Red Cell Distribution Width 14.2, Platelet Count 205, Mean Platelet Volume 9.4, Neutrophils (%) (Auto) , Lymphocytes (%) (Auto) , Monocytes (%) (Auto) , Eosinophils (%) (Auto) , Basophils (%) (Auto) , Differential Total Cells Counted 100, Neutrophils % ( Manual) 85H, Lymphocytes % (Manual) 8L, Monocytes % (Manual) 7, Eosinophils % ( Manual) 0, Basophils % (Manual) 0, Band Neutrophils 0, Platelet Estimate Adequate, Platelet Morphology Normal, Hypochromasia 2+, Anisocytosis 1+, Macrocytosis 1+, Sodium Level 144, Potassium Level 3.7, Chloride Level 112H, Carbon Dioxide Level 19L, Anion Gap 14, Blood Urea Nitrogen 43H, Creatinine 2.3H , Estimat Glomerular Filtration Rate , Glucose Level 158H, Calcium Level 7.1L, Troponin I 0.013 Current Medications Medications (Trade) Dose Ordered Sig/Chandu Route PRN Reason Start Time Stop Time Status Last Admin Dose Admin Acetaminophen (Tylenol) 650 mg Q4H PRN ORAL Mild Pain/Temp > 100.5 10/01/18 09:30 10/31/18 09:29 10/02/18 04:28 Chlorhexidine Gluconate (Sue-Hex 2%) 1 applic DAILY@1999 TOPIC 10/01/18 20:00 10/31/18 19:59 10/01/18 19:40 Dextrose (Dextrose 50%) 25 ml Q30M PRN IV Hypoglycemia 09/30/18 09:30 10/30/18 09:29 Dextrose (Dextrose 50%) 50 ml Q30M PRN IV Hypoglycemia 09/30/18 09:30 10/30/18 09:29 Heparin Sodium (Porcine) (Heparin 5000 units/ml) 5,000 units EVERY 12 HOURS SUBQ 09/30/18 21:00 10/30/18 20:59 10/02/18 08:24 Heparin Sodium/ Sodium Chloride (Heparin 1000 units/500ml Premix) 1,000 unit ONCE PRN IV picc line placement 10/01/18 10:45 10/03/18 10:44 Insulin Aspart (NovoLOG) Q6HR SUBQ 09/30/18 18:00 10/30/18 17:59 10/02/18 05:45 Lidocaine HCl (Xylocaine 1% 30ml) 30 ml ONCE PRN INJ picc line placement 10/01/18 10:45 10/03/18 10:44 Meropenem 500 mg/ Sodium Chloride 50 ml @ 100 mls/hr Q12H IVPB 10/01/18 18:00 10/06/18 17:59 10/02/18 05:44 Midodrine (Pro-Amatine) 5 mg THREE TIMES A DAY ORAL 10/02/18 09:45 11/01/18 09:44 10/02/18 09:45 Norepinephrine Bitartrate 4 mg/ Dextrose 250 ml @ 0 mls/hr Q24H IV 09/30/18 17:00 10/30/18 16:59 10/02/18 02:15 Pantoprazole (Protonix) 40 mg DAILY IV 10/01/18 09:00 10/31/18 08:59 10/02/18 08:23 Vancomycin HCl (Vanco rx to dose) 1 ea DAILY PRN MISC Per rx protocol 09/30/18 09:30 10/30/18 09:29 Maxim East MD Oct 02, 2018 17:07
--- NOTE | 2018-10-02 18:00 | NUR ---
Patient turned turned and repositioned. No new changes. Will continue plan of care. Stable. VSS. No distress noted.
--- NOTE | 2018-10-02 19:30 | NUR ---
NURSE NOTES: Received report from DAKOTA Vásquez. Patient alert&oriented x1. Patient is non-verbal does not respond but able to track, opens eyes spontaneously, smiles at times. campus monitor showing HR 90s SR with PAC at this time, on NC 2L with saturating 99%. G tube getting Glucerna 1.2 at 40 ml/hr. No residual. Scales catheter intact. Large, soft, non-tender abdomen. R femoral TLC, R AC 18, L wrist 20. No distress noted at this time. VSS. HOB kept elevated. Call light within reach. Will continue to monitor patient.
[2018-10-02] MEDS: Dyna-Hex 2% Top Sol 2oz TOPIC SCH (20:49)
--- NOTE | 2018-10-02 22:00 | NUR ---
NURSE NOTES: Pt's resting bed, in no acute distress. Afebrile. VS stable. Will continue to monitor.
[2018-10-03] VITALS (9 sets, daily range): BP systolic 107–131; BP diastolic 46–64
--- NOTE | 2018-10-03 | NUR ---
NURSE NOTES: Pt's resting bed, in no acute distress. Afebrile. VS stable. Will continue to monitor.
--- NOTE | 2018-10-03 02:00 | NUR ---
NURSE NOTES: Pt's resting in bed, asleep, VS stable. Will continue to monitor.
--- NOTE | 2018-10-03 03:30 | NUR ---
TRANSFER TO FLOOR: Patient transferred to [address] [facility], per hospital bed. Report given to DAKOTA Rob. Belongings and medications given to staff nurse. Family and or S/O informed of transfer.
--- NOTE | 2018-10-03 03:30 | NUR ---
NURSE NOTES: Pt transferred from ICU. Given report from DAKOTA Figueroa. Pt is sleeping on the bed and non-verbal. On O2 2L via nasal cannula and SaO2 100% noted. On G-tube feeding with Glucerna 1.2 @ 40cc/hr and tolerated well. No residual noted. Rt. femoral TLC area dressing is intact and clean. IV site intact and no sign of infiltration noted. No fever. No open wound on sacral area. No redness noted. Changed position. No belong noted. Placed fall precaution. Will continue to care plan.
[2018-10-03] MEDS: NovoLOG Insulin Flexpen SUBQ SCH ×5 (05:58→23:13)
[2018-10-03] MEDS ORDERED: Vancomycin 1.25mg/D5W 275ml IVPB ONE ×2 (07:00)
--- NOTE | 2018-10-03 07:30 | NUR ---
NURSE NOTES: Received pt from DAKOTA Rubio. Pt is lying calm in bed with no cardiopulmonary distress noetd. Pt is non verbal, but opens eyes when name is called. on 2L NC. GT noted running Glucerna 1. at 40 cc/Hr. F/C noted draining yellow urine. Skin alterations noted. Pt has R femoral TLC, R AC 18g IV and R wrist 20g IV. Bed is in lowest position. Side rails up x 2. Call light within reach. Will monitor pt.
--- NOTE | 2018-10-03 07:38 | NUR ---
HAND-OFF: Report given to DAKOTA Boo. Pt is resting on the bed and no sign of acute distress noted. Addendum: 10/03/18 at 0741 by FELI GARCIA RN RN Charting error.
--- NOTE | 2018-10-03 07:40 | NUR ---
HAND-OFF: Report given to DAKOTA Lei. Pt is resting on the bed and no sign of acute distress noted.
--- NOTE | 2018-10-03 08:03 | Nephrology Progress Note ---
Assessment/Plan Assessment/Plan A/P 1) NAOMY on CKD 4 - mutlifact ATN due to hypotension and sepsis - AM labs pending - off pressors. Stable, transfer to [facility] 2) Met Acidosis- hyperCL-. AM labs pending 3) Septic Shock- urosepsis- Abx per ID 4) Hypotension- weaned off levo and started ProAmtine Subjective Date patient seen: Oct 03, 2018 Time patient seen: 07:59 ROS Limited/Unobtainable: Yes Allergies: Coded Allergies: SULFA (SULFONAMIDE ANTIBIOTICS) (Unverified Allergy, Unknown, 09/30/18) COPIED FROM UNCODED Subjective Patient much improved and transferred out of MICU Objective Last 24 Hour Vital Signs Date Time Temp Pulse Resp B/P (MAP) Pulse Ox O2 Delivery O2 Flow Rate FiO2 10/03/18 04:00 Room Air 10/03/18 04:00 93 10/03/18 04:00 98.1 92 18 108/63 (78) 100 10/03/18 03:00 93 18 131/58 (82) 100 10/03/18 02:00 90 18 115/48 (70) 100 10/03/18 01:00 98.6 90 18 114/62 (79) 100 10/03/18 00:00 Room Air 10/03/18 00:00 83 18 109/61 (77) 100 10/02/18 23:00 86 18 114/52 (72) 99 10/02/18 22:00 84 18 98/51 (67) 99 10/02/18 21:00 86 18 128/67 (87) 99 10/02/18 20:00 87 10/02/18 20:00 Room Air 10/02/18 20:00 86 18 115/57 (76) 99 10/02/18 19:00 94 18 110/65 (80) 99 10/02/18 18:00 91 20 104/62 (76) 99 10/02/18 17:00 94 20 130/65 (86) 99 10/02/18 16:00 94 10/02/18 16:00 Room Air 10/02/18 16:00 98.5 81 22 128/64 (85) 99 10/02/18 15:00 80 22 136/66 (89) 99 10/02/18 14:00 84 22 120/62 (81) 99 10/02/18 13:00 87 22 122/53 (76) 99 10/02/18 12:00 89 10/02/18 12:00 Room Air 10/02/18 12:00 98.9 86 20 136/64 (88) 99 10/02/18 11:00 90 22 118/68 (85) 99 10/02/18 10:00 94 22 117/55 (75) 99 10/02/18 09:30 90 22 115/52 (73) 99 10/02/18 09:00 94 22 119/54 (75) 98 10/02/18 08:30 92 22 115/55 (75) 98 10/02/18 08:00 Room Air 10/02/18 08:00 99.2 90 22 118/55 (76) 98 10/02/18 08:00 94 Intake and Output 10/02/18 10/03/18 19:00 07:00 Intake Total 537.5 ml 530 ml Output Total 640 ml 2820 ml Balance -102.5 ml -2290 ml IV Total 57.5 ml 50 ml Tube Feeding 480 ml 480 ml Output Urine Total 640 ml 2820 ml # Bowel Movements 3 3 Laboratory Tests 10/03/18 04:30: Random Vancomycin Level 13.0 Height (Feet): 5 Height (Inches): 9.00 Weight (Pounds): 175 General Appearance: no apparent distress, alert EENT: normal ENT inspection Neck: normal alignment, supple Cardiovascular: normal rate, regular rhythm Respiratory/Chest: lungs clear, normal breath sounds Abdomen: non tender, soft Edema: no edema noted Arm (L), no edema noted Arm (R), no edema noted Leg (L), no edema noted Leg (R), no edema noted Pedal (L), no edema noted Pedal (R), no edema noted Generalized Jakub García MD Oct 03, 2018 08:03
[2018-10-03] MEDS: Midodrine 10mg tab ORAL SCH ×3 (08:50→17:09)
[2018-10-03] MEDS ORDERED: Heparin 5000 units/ml inj SUBQ SCH (09:00)
[2018-10-03] MEDS ORDERED: Pantoprazole Inj IV SCH (09:00)
--- NOTE | 2018-10-03 09:15 | Pulmonology Progress Note ---
Assessment/Plan Assessment/Plan IMPRESSION: 1. Pyuria. 2. Urosepsis. 3. Septic shock. 4. Diabetes mellitus. 5. Hypertension. 6. Diastolic heart failure. 7. Dementia. 8. Chronic encephalopathy. 9. half-way resident. 10. Chronic G-tube. 11. Hypokalemia; corrected DISCUSSION: no longer on pressors for hypotension. Continue broad-spectrum IV antibiotics. IV fluids to be given. DVT prophylaxis. Insulin sliding scale. Enteral feedings. I will follow carefully. Now in [facility] Subjective Interval Events: No overnight events Constitutional: Reports: no symptoms HEENT: Repors: no symptoms Respiratory: Reports: no symptoms Cardiovascular: Reports: no symptoms Gastrointestinal/Abdominal: Reports: no symptoms Genitourinary: Reports: no symptoms Allergies: Coded Allergies: SULFA (SULFONAMIDE ANTIBIOTICS) (Unverified Allergy, Unknown, 09/30/18) COPIED FROM UNCODED Objective Last 24 Hour Vital Signs Date Time Temp Pulse Resp B/P (MAP) Pulse Ox O2 Delivery O2 Flow Rate FiO2 10/03/18 04:00 Room Air 10/03/18 04:00 93 10/03/18 04:00 98.1 92 18 108/63 (78) 100 10/03/18 03:00 93 18 131/58 (82) 100 10/03/18 02:00 90 18 115/48 (70) 100 10/03/18 01:00 98.6 90 18 114/62 (79) 100 10/03/18 00:00 Room Air 10/03/18 00:00 83 18 109/61 (77) 100 10/02/18 23:00 86 18 114/52 (72) 99 10/02/18 22:00 84 18 98/51 (67) 99 10/02/18 21:00 86 18 128/67 (87) 99 10/02/18 20:00 87 10/02/18 20:00 Room Air 10/02/18 20:00 86 18 115/57 (76) 99 10/02/18 19:00 94 18 110/65 (80) 99 10/02/18 18:00 91 20 104/62 (76) 99 10/02/18 17:00 94 20 130/65 (86) 99 10/02/18 16:00 94 10/02/18 16:00 Room Air 10/02/18 16:00 98.5 81 22 128/64 (85) 99 10/02/18 15:00 80 22 136/66 (89) 99 10/02/18 14:00 84 22 120/62 (81) 99 10/02/18 13:00 87 22 122/53 (76) 99 10/02/18 12:00 89 10/02/18 12:00 Room Air 10/02/18 12:00 98.9 86 20 136/64 (88) 99 10/02/18 11:00 90 22 118/68 (85) 99 10/02/18 10:00 94 22 117/55 (75) 99 10/02/18 09:30 90 22 115/52 (73) 99 Intake and Output 10/02/18 10/03/18 19:00 07:00 Intake Total 537.5 ml 530 ml Output Total 640 ml 2820 ml Balance -102.5 ml -2290 ml IV Total 57.5 ml 50 ml Tube Feeding 480 ml 480 ml Output Urine Total 640 ml 2820 ml # Bowel Movements 3 3 General Appearance: no acute distress HEENT: normocephalic Respiratory/Chest: chest wall non-tender, lungs clear Cardiovascular: normal peripheral pulses, normal rate Abdomen: normal bowel sounds Laboratory Tests 10/03/18 04:30: Random Vancomycin Level 13.0 Current Medications Medications (Trade) Dose Ordered Sig/Chandu Route PRN Reason Start Time Stop Time Status Last Admin Dose Admin Acetaminophen (Tylenol) 650 mg Q4H PRN ORAL Mild Pain/Temp > 100.5 10/03/18 05:30 10/31/18 09:29 Chlorhexidine Gluconate (Sue-Hex 2%) 1 applic DAILY@2000 TOPIC 10/03/18 20:00 10/31/18 19:59 Dextrose (Dextrose 50%) 25 ml Q30M PRN IV Hypoglycemia 10/03/18 04:00 10/30/18 09:29 Dextrose (Dextrose 50%) 50 ml Q30M PRN IV Hypoglycemia 10/03/18 04:00 10/30/18 09:29 Heparin Sodium (Porcine) (Heparin 5000 units/ml) 5,000 units EVERY 12 HOURS SUBQ 10/03/18 09:00 10/30/18 20:59 Insulin Aspart (NovoLOG) Q6HR SUBQ 10/03/18 06:00 10/30/18 17:59 10/03/18 05:58 Meropenem 500 mg/ Sodium Chloride 50 ml @ 100 mls/hr Q12H IVPB 10/03/18 06:00 10/06/18 17:59 10/03/18 05:55 Midodrine (Pro-Amatine) 5 mg THREE TIMES A DAY ORAL 10/03/18 09:00 11/01/18 09:44 10/03/18 08:50 Pantoprazole (Protonix) 40 mg DAILY IV 10/03/18 09:00 10/31/18 08:59 10/03/18 08:50 Vancomycin HCl (Vanco rx to dose) 1 ea DAILY PRN MISC Per rx protocol 10/03/18 09:00 10/30/18 09:29 Maxim East MD Oct 03, 2018 09:15
[2018-10-03 11:12] LABS: ANION GAP 11 mmol/L (5-15); BLOOD UREA NITROGEN 43 mg/dL (7-18); CALCIUM 7.3 MG/DL (8.5-10.1); CARBON DIOXIDE 22 MMOL/L (21-32); CHLORIDE 116 MMOL/L (98-107); CREATININE 2.2 MG/DL (0.55-1.30); POTASSIUM 4.4 MMOL/L (3.5-5.1); SODIUM 149 MMOL/L (136-145)
--- NOTE | 2018-10-03 11:14 | NUR ---
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
--- NOTE | 2018-10-03 14:50 | Infectious Diseases Prog Note ---
Assessment/Plan Assessment/Plan ASSESSMENT AND PLAN: 1. sepsis/shock, e.coli/proteus/strep uti/pyelonephritis, leukocytosis, fevers, sirs, chest x-ray pending - meropenem and vancomycin - day # 3 abx - clinically improved - check labs and chest - x-ray 2. The patient has acute kidney injury and elevated creatinine. 3. Anemia. 4. Intensive care unit care. 5. Diabetes. 6. Hypertension. 7. Blood sugar and blood pressure treatment for diabetes and hypertension per primary. 8. Hyperlipidemia. 9. Dementia. 10. Chronic obstructive pulmonary disease. 11. Gastroesophageal reflux disease. 12. Gastrostomy tube. 13. Osteoarthrosis. 14. Metabolic encephalopathy. 15. Hypertensive heart disease. 16. Congestive heart failure. 17. Allergies to sulfa drugs. 18. Social history is negative. 19. Family history is noncontributory. 20. MAR was noted. 21. Case was discussed with RN. 22. Continue treatment per primary consultants. 23. vre colonization and isolation Subjective Constitutional: Reports: fatigue, other - off pressors, more alert HEENT: Reports: congestion - less Respiratory: Reports: shortness of breath - less Cardiovascular: Denies: chest pain Gastrointestinal/Abdominal: Denies: nausea, vomiting Genitourinary: Reports: other - + cruz Neurologic: Denies: headache Psychiatric: Denies: depression Hematologic: Denies: bleeding Musculoskeletal: Reports: pain Allergies: Coded Allergies: SULFA (SULFONAMIDE ANTIBIOTICS) (Unverified Allergy, Unknown, 09/30/18) COPIED FROM UNCODED Objective Vital Signs Last 24 Hour Vital Signs Date Time Temp Pulse Resp B/P (MAP) Pulse Ox O2 Delivery O2 Flow Rate FiO2 10/03/18 12:00 Nasal Cannula 2.0 10/03/18 12:00 97.7 96 20 107/58 (74) 100 10/03/18 12:00 91 10/03/18 08:00 105 10/03/18 08:00 Nasal Cannula 2.0 10/03/18 08:00 97.2 96 20 108/46 (66) 99 10/03/18 04:00 Room Air 10/03/18 04:00 93 10/03/18 04:00 98.1 92 18 108/63 (78) 100 10/03/18 03:00 93 18 131/58 (82) 100 10/03/18 02:00 90 18 115/48 (70) 100 10/03/18 01:00 98.6 90 18 114/62 (79) 100 10/03/18 00:00 Room Air 10/03/18 00:00 83 18 109/61 (77) 100 10/02/18 23:00 86 18 114/52 (72) 99 10/02/18 22:00 84 18 98/51 (67) 99 10/02/18 21:00 86 18 128/67 (87) 99 10/02/18 20:00 87 10/02/18 20:00 Room Air 10/02/18 20:00 86 18 115/57 (76) 99 10/02/18 19:00 94 18 110/65 (80) 99 10/02/18 18:00 91 20 104/62 (76) 99 10/02/18 17:00 94 20 130/65 (86) 99 10/02/18 16:00 94 10/02/18 16:00 Room Air 10/02/18 16:00 98.5 81 22 128/64 (85) 99 10/02/18 15:00 80 22 136/66 (89) 99 Height (Feet): 5 Height (Inches): 9.00 Weight (Pounds): 175 General Appearance: no acute distress HEENT: normocephalic, atraumatic, anicteric, mucous membranes moist Respiratory/Chest: crackles/rales, rhonchi - bilaterally Cardiovascular: normal rate, regular rhythm, no gallop/murmur, no JVD Abdomen: normal bowel sounds, soft, non tender, no organomegaly, non distended Genitourinary: other - + cruz - urine cloudy Extremities: no cyanosis Skin: no rash Neurologic/Psychiatric: harbormaster II-XII grossly normal, alert, responsive, other - more alert Lymphatic: no neck adenopathy Musculoskeletal: no effusion Objective Chest x-ray - pending Microbiology Date/Time Source Procedure Growth Status 09/30/18 02:25 Blood Blood Culture - Preliminary NO GROWTH AFTER 72 HOURS Resulted 09/30/18 03:05 Nasal Nares MRSA Culture - Final NO METHICILLIN RESISTANT STAPH AUREUS... Complete 09/30/18 03:35 Urine,Clean Catch Urine Culture - Final Proteus Mirabilis Escherichia Coli Strep Agalactiae Group B Complete 09/30/18 03:05 Rectum VRE Culture - Final Enterococcus Faecalis - Vre Complete 09/30/18 03:05 Rectum - Final NO CARBAPENEM-RESISTANT ENTEROBACTERI... Complete Labs Test 10/01/18 05:20 10/02/18 05:20 10/03/18 04:30 White Blood Count 21.1 K/UL (4.8-10.8) 16.7 K/UL (4.8-10.8) Red Blood Count 2.52 M/UL (4.20-5.40) 2.52 M/UL (4.20-5.40) Hemoglobin 8.7 G/DL (12.0-16.0) 8.4 G/DL (12.0-16.0) Hematocrit 26.4 % (37.0-47.0) 26.5 % (37.0-47.0) Mean Corpuscular Volume 105 FL (80-99) 105 FL (80-99) Mean Corpuscular Hemoglobin 34.5 PG (27.0-31.0) 33.5 PG (27.0-31.0) Mean Corpuscular Hemoglobin Concent 32.9 G/DL (32.0-36.0) 31.9 G/DL (32.0-36.0) Red Cell Distribution Width 13.8 % (11.6-14.8) 14.2 % (11.6-14.8) Platelet Count 205 K/UL (150-450) 205 K/UL (150-450) Mean Platelet Volume 9.4 FL (6.5-10.1) 9.4 FL (6.5-10.1) Neutrophils (%) (Auto) % (45.0-75.0) % (45.0-75.0) Lymphocytes (%) (Auto) % (20.0-45.0) % (20.0-45.0) Monocytes (%) (Auto) % (1.0-10.0) % (1.0-10.0) Eosinophils (%) (Auto) % (0.0-3.0) % (0.0-3.0) Basophils (%) (Auto) % (0.0-2.0) % (0.0-2.0) Differential Total Cells Counted 100 100 Neutrophils % (Manual) 84 % (45-75) 85 % (45-75) Lymphocytes % (Manual) 13 % (20-45) 8 % (20-45) Monocytes % (Manual) 3 % (1-10) 7 % (1-10) Eosinophils % (Manual) 0 % (0-3) 0 % (0-3) Basophils % (Manual) 0 % (0-2) 0 % (0-2) Band Neutrophils 0 % (0-8) 0 % (0-8) Platelet Estimate Adequate Adequate Platelet Morphology Normal Normal Macrocytosis 1+ 1+ Sodium Level 143 MMOL/L (136-145) 144 MMOL/L (136-145) 149 MMOL/L (136-145) Potassium Level 3.3 MMOL/L (3.5-5.1) 3.7 MMOL/L (3.5-5.1) 4.4 MMOL/L (3.5-5.1) Chloride Level 110 MMOL/L (98-107) 112 MMOL/L (98-107) 116 MMOL/L (98-107) Carbon Dioxide Level 20 MMOL/L (21-32) 19 MMOL/L (21-32) 22 MMOL/L (21-32) Anion Gap 14 mmol/L (5-15) 14 mmol/L (5-15) 11 mmol/L (5-15) Blood Urea Nitrogen 55 mg/dL (7-18) 43 mg/dL (7-18) 43 mg/dL (7-18) Creatinine 2.6 MG/DL (0.55-1.30) 2.3 MG/DL (0.55-1.30) 2.2 MG/DL (0.55-1.30) Estimat Glomerular Filtration Rate mL/min (>60) mL/min (>60) mL/min (>60) Glucose Level 205 MG/DL (74-106) 158 MG/DL (74-106) 107 MG/DL (74-106) Calcium Level 7.4 MG/DL (8.5-10.1) 7.1 MG/DL (8.5-10.1) 7.3 MG/DL (8.5-10.1) Troponin I 0.034 ng/mL (0.000-0.056) 0.013 ng/mL (0.000-0.056) Random Vancomycin Level 11.1 ug/mL 13.0 ug/mL Hypochromasia 2+ Anisocytosis 1+ Laboratory Tests Test 10/03/18 04:30 Sodium Level 149 MMOL/L (136-145) H Potassium Level 4.4 MMOL/L (3.5-5.1) Chloride Level 116 MMOL/L (98-107) H Carbon Dioxide Level 22 MMOL/L (21-32) Anion Gap 11 mmol/L (5-15) Blood Urea Nitrogen 43 mg/dL (7-18) H Creatinine 2.2 MG/DL (0.55-1.30) H Estimat Glomerular Filtration Rate mL/min (>60) Glucose Level 107 MG/DL (74-106) H Calcium Level 7.3 MG/DL (8.5-10.1) L Random Vancomycin Level 13.0 ug/mL Current Medications Medications (Trade) Dose Ordered Sig/Chandu Route PRN Reason Start Time Stop Time Status Last Admin Dose Admin Acetaminophen (Tylenol) 650 mg Q4H PRN ORAL Mild Pain/Temp > 100.5 10/03/18 05:30 10/31/18 09:29 Chlorhexidine Gluconate (Sue-Hex 2%) 1 applic DAILY@2000 TOPIC 10/03/18 20:00 10/31/18 19:59 Dextrose (Dextrose 50%) 25 ml Q30M PRN IV Hypoglycemia 10/03/18 04:00 10/30/18 09:29 Dextrose (Dextrose 50%) 50 ml Q30M PRN IV Hypoglycemia 10/03/18 04:00 10/30/18 09:29 Heparin Sodium (Porcine) (Heparin 5000 units/ml) 5,000 units EVERY 12 HOURS SUBQ 10/03/18 09:00 10/30/18 20:59 Insulin Aspart (NovoLOG) Q6HR SUBQ 10/03/18 06:00 10/30/18 17:59 10/03/18 12:39 Meropenem 500 mg/ Sodium Chloride 50 ml @ 100 mls/hr Q12H IVPB 10/03/18 06:00 10/06/18 17:59 10/03/18 05:55 Midodrine (Pro-Amatine) 5 mg THREE TIMES A DAY ORAL 10/03/18 09:00 11/01/18 09:44 10/03/18 12:50 Pantoprazole (Protonix) 40 mg DAILY IV 10/03/18 09:00 10/31/18 08:59 10/03/18 08:50 Vancomycin HCl (Vanco rx to dose) 1 ea DAILY PRN MISC Per rx protocol 10/03/18 09:00 10/30/18 09:29 Blanca Leigh MD Oct 03, 2018 14:50
[2018-10-03] MEDS ORDERED: NS 275ml ONE ×2 (17:41→17:55)
[2018-10-03] MEDS ORDERED: Tubing IV Secondary IV ONE (17:41)
--- NOTE | 2018-10-03 18:38 | NUR ---
TRANSFER TO FLOOR: Patient transferred to Med-surg floor via hospital bed with O2 tank. Report given to DAKOTA Ruby. Medications given to Flori. Patient had no belongings- confirmed with Flori. Tele box removed and returned to tele. Pt in stable condition.
--- NOTE | 2018-10-03 18:40 | NUR ---
NURSE NOTES: Received patient from Do from [facility]. Patient is non-verbal, bed bound. On oxygen @2L/min via NC. No wheezing or congestion. No s/s of pain or discomfort per FLACC pain scale. Skin assessment done noted with redness on bilateral heels. Skin intact and picture taken on sacral and heels. No redness on other pressure points. Rn checked with [facility] nurse. No belongings. IV on right ac. GT intact, no discharge or bleeding. Dressing intact. HOB elevated and on SPR mattress and heels are floated on pillow to off the load. Will continue plan of care.
--- NOTE | 2018-10-03 19:15 | NUR ---
HAND-OFF: Report given to Giana.
[2018-10-03] MEDS ORDERED: Dyna-Hex 2% Top Sol 2oz TOPIC SCH (20:00)
--- NOTE | 2018-10-03 20:00 | NUR ---
NURSE NOTES: Patient received in bed, awake, nonverbal. On o2 via NC. HOB elevated, GTF at 40cc/hr, tolerating feeding, no residual. Bed locked in low position. Will continue to monitor.
[2018-10-03] MEDS: Heparin 5000 units/ml inj SUBQ SCH (20:37)
[2018-10-04] VITALS: BP 113/52
[2018-10-04 04:00] VITALS: BP 136/74
[2018-10-04] MEDS: NovoLOG Insulin Flexpen SUBQ SCH ×3 (05:16→17:34)
--- NOTE | 2018-10-04 06:41 | NUR ---
NURSE NOTES: Left message to Dr. East regarding confirmation for need for PICC placement. Per [facility] RN in AM, the order was placed before she had a triple lumen cath placed. TLC now DC'd. Asked if patient still need a PICC line. Awaiting call back.
[2018-10-04 06:47] LABS: BASOPHILS % (AUTO) 0.7 % (0.0-2.0); EOSINOPHILS % (AUTO) 0.7 % (0.0-3.0); HEMOGLOBIN 8.3 G/DL (12.0-16.0); LYMPHOCYTES % (AUTO) 22.6 % (20.0-45.0); MEAN CORPUSCULAR VOLUME 106 FL (80-99); MONOCYTES % (AUTO) 6.5 % (1.0-10.0); NEUTROPHILS % (AUTO) 69.5 % (45.0-75.0); PLATELET COUNT 249 K/UL (150-450); RED BLOOD COUNT 2.46 M/UL (4.20-5.40); RED CELL DISTRIBUTION WIDTH 14.1 % (11.6-14.8); WHITE BLOOD COUNT 11.2 K/UL (4.8-10.8)
[2018-10-04 07:11] LABS: ANION GAP 10 mmol/L (5-15); BLOOD UREA NITROGEN 42 mg/dL (7-18); CALCIUM 8.6 MG/DL (8.5-10.1); CARBON DIOXIDE 24 MMOL/L (21-32); CHLORIDE 115 MMOL/L (98-107); CREATININE 2.1 MG/DL (0.55-1.30); SODIUM 149 MMOL/L (136-145)
--- NOTE | 2018-10-04 07:35 | NUR ---
HAND-OFF: Report given to Shyla DUNCAN.
--- NOTE | 2018-10-04 07:59 | NUR ---
NURSE NOTES: Pt appears to be nonverbal. Pewter Caster entered room introduced self, no eye contact made. Pewter Caster call ed pt by name did not turn head to acknowledge , all anticipated needs will require to be met including, repositioning for preventive measures
[2018-10-04 08:00] VITALS: BP 122/71
--- NOTE | 2018-10-04 08:16 | Nephrology Progress Note ---
Assessment/Plan Assessment/Plan A/P 1) CKD 4 - mutlifact ATN due to hypotension and sepsis - Cr stable 2) Met Acidosis- hyperCL-. resolved 3) Septic Shock- urosepsis- Abx per ID 4) Hypernatremia- add free water Subjective Date patient seen: Oct 04, 2018 Time patient seen: 08:12 ROS Limited/Unobtainable: Yes Allergies: Coded Allergies: SULFA (SULFONAMIDE ANTIBIOTICS) (Unverified Allergy, Unknown, 09/30/18) COPIED FROM UNCODED Subjective Patient in no overt distress, more awake Objective Last 24 Hour Vital Signs Date Time Temp Pulse Resp B/P (MAP) Pulse Ox O2 Delivery O2 Flow Rate FiO2 10/04/18 04:00 98.8 105 20 136/74 (94) 97 10/04/18 00:00 99.4 106 20 113/52 (72) 97 10/03/18 21:00 Nasal Cannula 2.0 10/03/18 20:00 99.1 100 20 127/64 (85) 94 10/03/18 16:00 97 10/03/18 16:00 98.1 100 23 130/63 (85) 100 10/03/18 16:00 Nasal Cannula 2.0 10/03/18 12:00 Nasal Cannula 2.0 10/03/18 12:00 97.7 96 20 107/58 (74) 100 10/03/18 12:00 91 Intake and Output 10/03/18 10/04/18 19:00 07:00 Intake Total 1015.000 ml 390 ml Output Total 1350 ml 950 ml Balance -335.000 ml -560 ml Intake Free Water 260 ml 60 ml IV Total 275.000 ml 50 ml Tube Feeding 480 ml 280 ml Output Urine Total 1350 ml 950 ml # Bowel Movements 1 Laboratory Tests 10/04/18 05:45: White Blood Count 11.2H, Red Blood Count 2.46L, Hemoglobin 8.3L, Hematocrit 26.0L, Mean Corpuscular Volume 106H, Mean Corpuscular Hemoglobin 33.7H, Mean Corpuscular Hemoglobin Concent 31.9L, Red Cell Distribution Width 14.1, Platelet Count 249, Mean Platelet Volume 8.5, Neutrophils (%) (Auto) 69.5, Lymphocytes (%) (Auto) 22.6, Monocytes (%) (Auto) 6.5, Eosinophils (%) (Auto) 0.7, Basophils (%) (Auto) 0.7, Sodium Level 149H, Potassium Level 4.0, Chloride Level 115H, Carbon Dioxide Level 24, Anion Gap 10, Blood Urea Nitrogen 42H, Creatinine 2.1H, Estimat Glomerular Filtration Rate , Glucose Level 109H, Calcium Level 8.6 Height (Feet): 5 Height (Inches): 9.00 Weight (Pounds): 178 General Appearance: no apparent distress, alert EENT: normal ENT inspection Neck: normal alignment, supple Cardiovascular: normal rate, regular rhythm Respiratory/Chest: lungs clear, normal breath sounds Abdomen: non tender, soft Edema: no edema noted Arm (L), no edema noted Arm (R), no edema noted Leg (L), no edema noted Leg (R), no edema noted Pedal (L), no edema noted Pedal (R), no edema noted Generalized Jakub García MD Oct 04, 2018 08:16
[2018-10-04] MEDS: Pantoprazole Inj IV SCH (09:00)
[2018-10-04] MEDS: Heparin 5000 units/ml inj SUBQ SCH ×2 (09:00→20:29)
[2018-10-04] MEDS: Midodrine 10mg tab ORAL SCH ×3 (09:00→17:38)
--- NOTE | 2018-10-04 09:13 | NUR ---
RADIOLOGY DEPT., CHEST X-RAY DONE.-P.DYE
--- NOTE | 2018-10-04 09:33 | Cardiology Report ---
APPROVED REPORT EKG Measurement Heart [id number] Sinus tachycardia Otherwise normal ECG
--- NOTE | 2018-10-04 11:58 | NUR ---
*-* INSURANCE *-* AVAILABLE CLINICALS AND REVIEWS FAXED TO: [facility]# [id number]*[facility]: [place] P- [phone] F- [phone]
[2018-10-04 12:00] VITALS: BP 136/75
--- NOTE | 2018-10-04 12:03 | NUR ---
RD ASSESSMENT & RECOMMENDATIONS SEE CARE ACTIVITY FOR COMPLETE ASSESSMENT DAILY ESTIMATED NEEDS: Needs based on sepsis, dm, TF ENSEMBLE MEMBER 69kg 22-27 kcals/kg [id number] total kcals 1-2 g protein/kg 69-138 g total protein 20-25 mL/kg 1046-6486 total fluid mLs NUTRITION DIAGNOSIS: 1) Increased kcal and protein needs r/t sepsis as evidenced by pt w/ critically elev WBC on adm (36.5-> 11.2), elev BG, febrile, now off pressor support. 2) Chewing/ swallowing difficulty r/t dysphagia as evidenced by pt is GT dep. CURRENT TF:Glucerna 1.2 @40ml ENTERAL NUTRITION RECOMMENDATIONS: Glucerna 1.2 @55ml/hr x24 hrs to provide 1320ml, 1584 kcal, 79g 1063ml free H2O - WITH HEMODYNAMIC STABILITY rec to increase TF goal by 10ml/hr q4-6 hrs to goal of 55ml/hr to better meet est needs - Flush per MD. HOB over 30 degrees ADDITIONAL RECOMMENDATIONS: 1) Feed to goal w/ hemodynamic stability 2) Check lytes daily, replete as needed 3) Glycemic control- on kalpesh 4) F/ up w/ WC eval for BL DTI 5) Calibrated bed scale wts
--- NOTE | 2018-10-04 12:15 | Diagnostic Imaging Report ---
Indication: Cough Technique: One view of the chest Comparison: 09/30/2017 Findings: Interim development of moderate-sized left-sided pleural effusion. There may be a small right pleural effusion now present as well. The lungs remain clear. Heart size is normal. The aorta is tortuous ectatic and calcified Impression: New moderate-sized left and possible small right pleural effusions.
--- NOTE | 2018-10-04 14:17 | Pulmonology Progress Note ---
Assessment/Plan Assessment/Plan IMPRESSION: 1. Pyuria. 2. Urosepsis. 3. Septic shock. 4. Diabetes mellitus. 5. Hypertension. 6. Diastolic heart failure. 7. Dementia. 8. Chronic encephalopathy. 9. care home resident. 10. Chronic G-tube. 11. Hypokalemia; corrected DISCUSSION: no longer on pressors for hypotension. Continue broad-spectrum IV antibiotics. IV fluids to be given. DVT prophylaxis. Insulin sliding scale. Enteral feedings. I will follow carefully. Added free water Now in [facility] Subjective Interval Events: Looking better; has hypernatremia Constitutional: Reports: no symptoms HEENT: Repors: no symptoms Respiratory: Reports: no symptoms Cardiovascular: Reports: no symptoms Gastrointestinal/Abdominal: Reports: no symptoms Genitourinary: Reports: no symptoms Allergies: Coded Allergies: SULFA (SULFONAMIDE ANTIBIOTICS) (Unverified Allergy, Unknown, 09/30/18) COPIED FROM UNCODED Objective Last 24 Hour Vital Signs Date Time Temp Pulse Resp B/P (MAP) Pulse Ox O2 Delivery O2 Flow Rate FiO2 10/04/18 08:00 99.2 96 18 122/71 (88) 97 10/04/18 04:00 98.8 105 20 136/74 (94) 97 10/04/18 00:00 99.4 106 20 113/52 (72) 97 10/03/18 21:00 Nasal Cannula 2.0 10/03/18 20:00 99.1 100 20 127/64 (85) 94 10/03/18 16:00 97 10/03/18 16:00 98.1 100 23 130/63 (85) 100 10/03/18 16:00 Nasal Cannula 2.0 Intake and Output 10/03/18 10/04/18 18:59 06:59 Intake Total 1015.000 ml 430 ml Output Total 2600 ml 950 ml Balance -1585.000 ml -520 ml Intake Free Water 260 ml 60 ml IV Total 275.000 ml 50 ml Tube Feeding 480 ml 320 ml Output Urine Total 2600 ml 950 ml # Bowel Movements 1 1 General Appearance: no acute distress HEENT: normocephalic Respiratory/Chest: chest wall non-tender, lungs clear Cardiovascular: normal peripheral pulses, normal rate Abdomen: normal bowel sounds Extremities: no cyanosis Laboratory Tests 10/04/18 05:45: White Blood Count 11.2H, Red Blood Count 2.46L, Hemoglobin 8.3L, Hematocrit 26.0L, Mean Corpuscular Volume 106H, Mean Corpuscular Hemoglobin 33.7H, Mean Corpuscular Hemoglobin Concent 31.9L, Red Cell Distribution Width 14.1, Platelet Count 249, Mean Platelet Volume 8.5, Neutrophils (%) (Auto) 69.5, Lymphocytes (%) (Auto) 22.6, Monocytes (%) (Auto) 6.5, Eosinophils (%) (Auto) 0.7, Basophils (%) (Auto) 0.7, Sodium Level 149H, Potassium Level 4.0, Chloride Level 115H, Carbon Dioxide Level 24, Anion Gap 10, Blood Urea Nitrogen 42H, Creatinine 2.1H, Estimat Glomerular Filtration Rate , Glucose Level 109H, Calcium Level 8.6 Current Medications Medications (Trade) Dose Ordered Sig/Chandu Route PRN Reason Start Time Stop Time Status Last Admin Dose Admin Acetaminophen (Tylenol) 650 mg Q4H PRN ORAL Mild Pain/Temp > 100.5 10/03/18 19:00 10/31/18 18:59 Dextrose (Dextrose 50%) 25 ml Q30M PRN IV Hypoglycemia 10/03/18 18:30 10/30/18 09:29 Dextrose (Dextrose 50%) 50 ml Q30M PRN IV Hypoglycemia 10/03/18 18:30 10/30/18 09:29 Heparin Sodium (Porcine) (Heparin 5000 units/ml) 5,000 units EVERY 12 HOURS SUBQ 10/03/18 21:00 10/30/18 20:59 10/03/18 20:37 Insulin Aspart (NovoLOG) Q6HR SUBQ 10/04/18 00:00 10/30/18 17:59 10/04/18 05:16 Meropenem 500 mg/ Sodium Chloride 50 ml @ 100 mls/hr Q12H IVPB 10/04/18 06:00 10/06/18 17:59 10/04/18 05:14 Midodrine (Pro-Amatine) 5 mg THREE TIMES A DAY ORAL 10/04/18 09:00 11/01/18 09:44 10/04/18 09:00 Pantoprazole (Protonix) 40 mg DAILY IV 10/04/18 09:00 10/31/18 08:59 10/04/18 09:00 Vancomycin HCl (Vanco rx to dose) 1 ea DAILY PRN MISC Per rx protocol 10/03/18 19:00 11/02/18 18:59 Maxim East MD Oct 04, 2018 14:17
--- NOTE | 2018-10-04 15:47 | NUR ---
NURSE NOTES: Pt pulse is slightly elevated requires verbal queing when approached pt is guarded and fearful
--- NOTE | 2018-10-04 15:48 | NUR ---
NURSE NOTES: Will monitor and follow up wit MD if necessary
[2018-10-04 16:00] VITALS: BP 133/72
--- NOTE | 2018-10-04 16:19 | NUR ---
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 IS:MIDODRINE 5mg PROTONIX 40mg IV MEROPENEM 500mg IVPB NOVOLOG SUBQ MED/SURG
--- NOTE | 2018-10-04 19:50 | NUR ---
NURSE NOTES: Dr East phone roughly one hour ago in regards for amount of fluid for flushing. Standard flushing orders are not available
--- NOTE | 2018-10-04 19:51 | NUR ---
HAND-OFF: Report given to Hbad RN.
[2018-10-04 20:00] VITALS: BP 129/95
--- NOTE | 2018-10-04 20:06 | NUR ---
NURSE NOTES: Pt is in bed, awake and verbal. No acute distress noted. Scales cath is draining yellow urine. Glucerna 1.2 running at 40ml/hr via G-tube. G-tube flushed with 200ml water. No residuals. Left forearm IV cath is patent and asymptomatic. Bed low in position,side rails up and call light within reach.
[2018-10-05] VITALS: BP 135/65
[2018-10-05] MEDS: NovoLOG Insulin Flexpen SUBQ SCH ×4 (00:44→18:13)
[2018-10-05 04:00] VITALS: BP 138/63
--- NOTE | 2018-10-05 06:10 | NUR ---
NURSE NOTES: Pt is given a bed bath, Bed linen changed. Glucerna 1.2 running at 40ml/hr, no residuals, G-tube flushed with 200ml water. HOB elevated.
--- NOTE | 2018-10-05 07:30 | NUR ---
HAND-OFF: Report given to DAKOTA Brock.
--- NOTE | 2018-10-05 07:39 | NUR ---
NURSE NOTES: Received patient from Juan Luis RN, patient is resting in bed, no distress noted, bed is locked and in lowest position, call light within reach, tube feed running, will continue to monitor.
[2018-10-05 07:54] LABS: ANION GAP 10 mmol/L (5-15); BLOOD UREA NITROGEN 41 mg/dL (7-18); CARBON DIOXIDE 24 MMOL/L (21-32); CHLORIDE 117 MMOL/L (98-107); CREATININE 2.1 MG/DL (0.55-1.30); POTASSIUM 4.9 MMOL/L (3.5-5.1); SODIUM 151 MMOL/L (136-145)
[2018-10-05 08:00] VITALS: BP 139/63
--- NOTE | 2018-10-05 08:35 | Nephrology Progress Note ---
Assessment/Plan Assessment/Plan A/P 1) CKD 4 - mutlifact ATN due to hypotension and sepsis - Cr stable. OK for DC from renal point 2) Met Acidosis- hyperCL-. resolved 3) Septic Shock- urosepsis- Abx per ID 4) Hypernatremia- add D5W x 1 L Subjective Date patient seen: Oct 05, 2018 Time patient seen: 08:34 ROS Limited/Unobtainable: Yes Allergies: Coded Allergies: SULFA (SULFONAMIDE ANTIBIOTICS) (Unverified Allergy, Unknown, 09/30/18) COPIED FROM UNCODED Subjective Patient much more awake and alert Objective Last 24 Hour Vital Signs Date Time Temp Pulse Resp B/P (MAP) Pulse Ox O2 Delivery O2 Flow Rate FiO2 10/05/18 04:00 98.1 69 18 138/63 (88) 95 10/05/18 00:00 98.9 110 20 135/65 (88) 97 10/04/18 21:49 Room Air 10/04/18 20:00 99.8 105 20 129/95 (106) 96 10/04/18 16:00 98.1 111 18 133/72 (92) 97 10/04/18 12:00 98.1 119 20 136/75 (95) 97 Intake and Output 10/04/18 10/05/18 19:00 07:00 Intake Total 790 ml 520 ml Output Total 1350 ml Balance 790 ml -830 ml Intake Free Water 260 ml 200 ml IV Total 50 ml Tube Feeding 480 ml 320 ml Output Urine Total 1350 ml # Bowel Movements 1 Laboratory Tests 10/05/18 05:40: Sodium Level 151H, Potassium Level 4.9, Chloride Level 117H, Carbon Dioxide Level 24, Anion Gap 10, Blood Urea Nitrogen 41H, Creatinine 2.1H, Estimat Glomerular Filtration Rate , Glucose Level 88, Calcium Level 9.0, Random Vancomycin Level 16.6 Height (Feet): 5 Height (Inches): 9.00 Weight (Pounds): 179 General Appearance: no apparent distress, alert EENT: normal ENT inspection Neck: normal alignment, supple Cardiovascular: normal rate, regular rhythm Respiratory/Chest: lungs clear, normal breath sounds Abdomen: non tender, soft Edema: no edema noted Arm (L), no edema noted Arm (R), no edema noted Leg (L), no edema noted Leg (R), no edema noted Pedal (L), no edema noted Pedal (R), no edema noted Generalized Jakub García MD Oct 05, 2018 08:35
[2018-10-05] MEDS: Pantoprazole Inj IV SCH (08:50)
[2018-10-05] MEDS: Midodrine 10mg tab ORAL SCH ×3 (08:51→18:09)
[2018-10-05] MEDS: Heparin 5000 units/ml inj SUBQ SCH ×2 (08:52→20:06)
[2018-10-05] MEDS ORDERED: Vancomycin 1gm in D5W 275ml IVPB ONE ×2 (09:00→11:45)
--- NOTE | 2018-10-05 10:44 | NUR ---
PULL OVERBILINGUAL LEGAL ASSISTANT SI:SEPSIS VS: BP 129/65, P 119, T 99.8, RR 20, SpO2 95 Na 151, CHLORIDE 117, BUN 41, CR 2.1 IS:DEXTROSE 1L IV MIDODRINE 5mg PROTONIX 40mg IV MEROPENEM 50ml IVPB HEPARIN SUBQ MED/SURG STATUS
[2018-10-05 12:00] VITALS: BP 116/62
--- NOTE | 2018-10-05 12:02 | Pulmonology Progress Note ---
Assessment/Plan Assessment/Plan IMPRESSION: 1. Pyuria. 2. Urosepsis. 3. Septic shock. 4. Diabetes mellitus. 5. Hypertension. 6. Diastolic heart failure. 7. Dementia. 8. Chronic encephalopathy. 9. intermediate resident. 10. Chronic G-tube. 11. Hypokalemia; corrected DISCUSSION: no longer on pressors for hypotension. Continue broad-spectrum IV antibiotics. IV fluids to be given. DVT prophylaxis. Insulin sliding scale. Enteral feedings. I will follow carefully. Added free water Subjective Interval Events: None new Constitutional: Reports: no symptoms HEENT: Repors: no symptoms Respiratory: Reports: no symptoms Cardiovascular: Reports: no symptoms Gastrointestinal/Abdominal: Reports: no symptoms Genitourinary: Reports: no symptoms Allergies: Coded Allergies: SULFA (SULFONAMIDE ANTIBIOTICS) (Unverified Allergy, Unknown, 09/30/18) COPIED FROM UNCODED Objective Last 24 Hour Vital Signs Date Time Temp Pulse Resp B/P (MAP) Pulse Ox O2 Delivery O2 Flow Rate FiO2 10/05/18 08:15 Room Air 10/05/18 08:00 97.8 99 20 139/63 (88) 95 10/05/18 04:00 98.1 69 18 138/63 (88) 95 10/05/18 00:00 98.9 110 20 135/65 (88) 97 10/04/18 21:49 Room Air 10/04/18 20:00 99.8 105 20 129/95 (106) 96 10/04/18 16:00 98.1 111 18 133/72 (92) 97 Intake and Output 10/04/18 10/05/18 19:00 07:00 Intake Total 790 ml 520 ml Output Total 1350 ml Balance 790 ml -830 ml Intake Free Water 260 ml 200 ml IV Total 50 ml Tube Feeding 480 ml 320 ml Output Urine Total 1350 ml # Bowel Movements 1 General Appearance: no acute distress HEENT: normocephalic Respiratory/Chest: chest wall non-tender, lungs clear Cardiovascular: normal peripheral pulses, normal rate Abdomen: normal bowel sounds Laboratory Tests 10/05/18 05:40: Sodium Level 151H, Potassium Level 4.9, Chloride Level 117H, Carbon Dioxide Level 24, Anion Gap 10, Blood Urea Nitrogen 41H, Creatinine 2.1H, Estimat Glomerular Filtration Rate , Glucose Level 88, Calcium Level 9.0, Random Vancomycin Level 16.6 Current Medications Medications (Trade) Dose Ordered Sig/Chandu Route PRN Reason Start Time Stop Time Status Last Admin Dose Admin Acetaminophen (Tylenol) 650 mg Q4H PRN ORAL Mild Pain/Temp > 100.5 10/03/18 19:00 10/31/18 18:59 Dextrose 1,000 ml @ 75 mls/hr [id number] IV 10/05/18 09:00 11/04/18 08:59 10/05/18 09:04 Dextrose (Dextrose 50%) 25 ml Q30M PRN IV Hypoglycemia 10/03/18 18:30 10/30/18 09:29 Dextrose (Dextrose 50%) 50 ml Q30M PRN IV Hypoglycemia 10/03/18 18:30 10/30/18 09:29 Heparin Sodium (Porcine) (Heparin 5000 units/ml) 5,000 units EVERY 12 HOURS SUBQ 10/03/18 21:00 10/30/18 20:59 10/05/18 08:52 Insulin Aspart (NovoLOG) Q6HR SUBQ 10/04/18 00:00 10/30/18 17:59 10/05/18 00:44 Meropenem 500 mg/ Sodium Chloride 50 ml @ 100 mls/hr Q12H IVPB 10/04/18 06:00 10/06/18 17:59 10/05/18 05:49 Midodrine (Pro-Amatine) 5 mg THREE TIMES A DAY ORAL 10/04/18 09:00 11/01/18 09:44 10/05/18 08:51 Pantoprazole (Protonix) 40 mg DAILY IV 10/04/18 09:00 10/31/18 08:59 10/05/18 08:50 Vancomycin HCl (Vanco rx to dose) 1 ea DAILY PRN MISC Per rx protocol 10/03/18 19:00 11/02/18 18:59 Vancomycin HCl 1 gm/Dextrose 275 ml @ 183.708 mls/hr ONCE ONCE IVPB 10/05/18 11:45 10/05/18 13:14 10/05/18 11:45 Maxim East MD Oct 05, 2018 12:02
[2018-10-05 16:00] VITALS: BP 133/71
--- NOTE | 2018-10-05 16:06 | NUR ---
NURSE NOTES:WOUND CARE NOTES:PT PRESENTED ON ADMISSION WITH NON-BLANCHING ERYTHEMA TO SACRUM AND BOTH HEELS .Sacrum is pink and blanchable. Erythema secondary to incontinence associated dermatitis noted in skin folds both groin. Non-blanching erythema noted to both heels. Pt flinches when heels minimally palpated. Cavilon Skin BArrier applied to both heels,each heel covered with Optifoam drsg, and off-loaded with pillows .Pt noted to have support surface mattress overlay and positioned with pillows in bed. R earlobe red .Primary nurse stated pt frequently pulls off oxygen .Pt was observed to have nasal cannula across forehead .Cavilon Skin Barrier applied to ears. NO other skin concerns noted: Recommendations: Apply Triad Paste to sacrum .Cover with Optifoam drsg .Change Q 3 days and prn. Apply Cavilon Skin Barrier to both heels .Cover each heels with Optifoam drsgs .Change Q7days and prn. Off-load heels with Pillow. Reposition at least every 2hours or as tolerated.
--- NOTE | 2018-10-05 16:14 | Infectious Diseases Prog Note ---
Assessment/Plan Assessment/Plan ASSESSMENT AND PLAN: 1. sepsis/shock, e.coli/proteus/strep uti/pyelonephritis, leukocytosis, fevers, sirs, chest x-ray with effusion, ? aspiration pna/hcap - meropenem and vancomycin - day # 5 abx - clinically improved - check labs and chest - x-ray - check sputum culture 2. The patient has acute kidney injury and elevated creatinine. 3. Anemia. 4. Intensive care unit care. 5. Diabetes. 6. Hypertension. 7. Blood sugar and blood pressure treatment for diabetes and hypertension per primary. 8. Hyperlipidemia. 9. Dementia. 10. Chronic obstructive pulmonary disease. 11. Gastroesophageal reflux disease. 12. Gastrostomy tube. 13. Osteoarthrosis. 14. Metabolic encephalopathy. 15. Hypertensive heart disease. 16. Congestive heart failure. 17. Allergies to sulfa drugs. 18. Social history is negative. 19. Family history is noncontributory. 20. MAR was noted. 21. Case was discussed with RN. 22. Continue treatment per primary consultants. 23. vre colonization and isolation Subjective Constitutional: Denies: fever HEENT: Reports: congestion - mild Respiratory: Reports: shortness of breath - mild Cardiovascular: Denies: chest pain Gastrointestinal/Abdominal: Denies: nausea, vomiting, diarrhea Genitourinary: Reports: other - no cruz Neurologic: Denies: headache Psychiatric: Denies: depression Skin: Denies: rash Hematologic: Denies: bleeding Musculoskeletal: Denies: pain Allergies: Coded Allergies: SULFA (SULFONAMIDE ANTIBIOTICS) (Unverified Allergy, Unknown, 09/30/18) COPIED FROM UNCODED Objective Vital Signs Last 24 Hour Vital Signs Date Time Temp Pulse Resp B/P (MAP) Pulse Ox O2 Delivery O2 Flow Rate FiO2 10/05/18 12:00 98.2 93 18 116/62 (80) 96 10/05/18 08:15 Room Air 10/05/18 08:00 97.8 99 20 139/63 (88) 95 10/05/18 04:00 98.1 69 18 138/63 (88) 95 10/05/18 00:00 98.9 110 20 135/65 (88) 97 10/04/18 21:49 Room Air 10/04/18 20:00 99.8 105 20 129/95 (106) 96 Height (Feet): 5 Height (Inches): 9.00 Weight (Pounds): 179 General Appearance: no acute distress HEENT: normocephalic, atraumatic, anicteric, mucous membranes moist Respiratory/Chest: decreased breath sounds, crackles/rales, rhonchi - bilaterally Cardiovascular: normal rate, regular rhythm, no gallop/murmur, no JVD Abdomen: normal bowel sounds, soft, non tender, no organomegaly, non distended Genitourinary: other - no cruz Extremities: no cyanosis Skin: no rash Neurologic/Psychiatric: funds development director II-XII grossly normal, alert, responsive Lymphatic: no neck adenopathy Musculoskeletal: no effusion Objective Chest x-ray - pending Microbiology Date/Time Source Procedure Growth Status 09/30/18 02:25 Blood Blood Culture - Final NO GROWTH AFTER 5 DAYS Complete 09/30/18 03:05 Nasal Nares MRSA Culture - Final NO METHICILLIN RESISTANT STAPH AUREUS... Complete 09/30/18 03:35 Urine,Clean Catch Urine Culture - Final Proteus Mirabilis Escherichia Coli Strep Agalactiae Group B Complete 09/30/18 03:05 Rectum VRE Culture - Final Enterococcus Faecalis - Vre Complete 09/30/18 03:05 Rectum - Final NO CARBAPENEM-RESISTANT ENTEROBACTERI... Complete Labs Test 10/03/18 04:30 10/04/18 05:45 10/05/18 05:40 Sodium Level 149 MMOL/L (136-145) 149 MMOL/L (136-145) 151 MMOL/L (136-145) Potassium Level 4.4 MMOL/L (3.5-5.1) 4.0 MMOL/L (3.5-5.1) 4.9 MMOL/L (3.5-5.1) Chloride Level 116 MMOL/L (98-107) 115 MMOL/L (98-107) 117 MMOL/L (98-107) Carbon Dioxide Level 22 MMOL/L (21-32) 24 MMOL/L (21-32) 24 MMOL/L (21-32) Anion Gap 11 mmol/L (5-15) 10 mmol/L (5-15) 10 mmol/L (5-15) Blood Urea Nitrogen 43 mg/dL (7-18) 42 mg/dL (7-18) 41 mg/dL (7-18) Creatinine 2.2 MG/DL (0.55-1.30) 2.1 MG/DL (0.55-1.30) 2.1 MG/DL (0.55-1.30) Estimat Glomerular Filtration Rate mL/min (>60) mL/min (>60) mL/min (>60) Glucose Level 107 MG/DL (74-106) 109 MG/DL (74-106) 88 MG/DL (74-106) Calcium Level 7.3 MG/DL (8.5-10.1) 8.6 MG/DL (8.5-10.1) 9.0 MG/DL (8.5-10.1) Random Vancomycin Level 13.0 ug/mL 16.6 ug/mL White Blood Count 11.2 K/UL (4.8-10.8) Red Blood Count 2.46 M/UL (4.20-5.40) Hemoglobin 8.3 G/DL (12.0-16.0) Hematocrit 26.0 % (37.0-47.0) Mean Corpuscular Volume 106 FL (80-99) Mean Corpuscular Hemoglobin 33.7 PG (27.0-31.0) Mean Corpuscular Hemoglobin Concent 31.9 G/DL (32.0-36.0) Red Cell Distribution Width 14.1 % (11.6-14.8) Platelet Count 249 K/UL (150-450) Mean Platelet Volume 8.5 FL (6.5-10.1) Neutrophils (%) (Auto) 69.5 % (45.0-75.0) Lymphocytes (%) (Auto) 22.6 % (20.0-45.0) Monocytes (%) (Auto) 6.5 % (1.0-10.0) Eosinophils (%) (Auto) 0.7 % (0.0-3.0) Basophils (%) (Auto) 0.7 % (0.0-2.0) Laboratory Tests Test 10/05/18 05:40 Sodium Level 151 MMOL/L (136-145) H Potassium Level 4.9 MMOL/L (3.5-5.1) Chloride Level 117 MMOL/L (98-107) H Carbon Dioxide Level 24 MMOL/L (21-32) Anion Gap 10 mmol/L (5-15) Blood Urea Nitrogen 41 mg/dL (7-18) H Creatinine 2.1 MG/DL (0.55-1.30) H Estimat Glomerular Filtration Rate mL/min (>60) Glucose Level 88 MG/DL (74-106) Calcium Level 9.0 MG/DL (8.5-10.1) Random Vancomycin Level 16.6 ug/mL Current Medications Medications (Trade) Dose Ordered Sig/Chandu Route PRN Reason Start Time Stop Time Status Last Admin Dose Admin Acetaminophen (Tylenol) 650 mg Q4H PRN ORAL Mild Pain/Temp > 100.5 10/03/18 19:00 10/31/18 18:59 Dextrose 1,000 ml @ 75 mls/hr [id number] IV 10/05/18 09:00 11/04/18 08:59 10/05/18 09:04 Dextrose (Dextrose 50%) 25 ml Q30M PRN IV Hypoglycemia 10/03/18 18:30 10/30/18 09:29 Dextrose (Dextrose 50%) 50 ml Q30M PRN IV Hypoglycemia 10/03/18 18:30 10/30/18 09:29 Heparin Sodium (Porcine) (Heparin 5000 units/ml) 5,000 units EVERY 12 HOURS SUBQ 10/03/18 21:00 10/30/18 20:59 10/05/18 08:52 Insulin Aspart (NovoLOG) Q6HR SUBQ 10/04/18 00:00 10/30/18 17:59 10/05/18 12:16 Meropenem 500 mg/ Sodium Chloride 50 ml @ 100 mls/hr Q12H IVPB 10/04/18 06:00 10/06/18 17:59 10/05/18 05:49 Midodrine (Pro-Amatine) 5 mg THREE TIMES A DAY ORAL 10/04/18 09:00 11/01/18 09:44 10/05/18 12:14 Pantoprazole (Protonix) 40 mg DAILY IV 10/04/18 09:00 10/31/18 08:59 10/05/18 08:50 Vancomycin HCl (Vanco rx to dose) 1 ea DAILY PRN MISC Per rx protocol 10/03/18 19:00 11/02/18 18:59 Blanca Leigh MD Oct 05, 2018 16:14
--- NOTE | 2018-10-05 19:28 | NUR ---
HAND-OFF: Report given to Juan Luis DUNCAN.
--- NOTE | 2018-10-05 19:42 | NUR ---
NURSE NOTES: Pt is in bed, awake and verbal. No acute distress noted. No SOB. HOB elevated. Glucerna 1.2 Running at 40ml/hr via g-tube. G-tube flushed. D5W running at 75ml/hr. Scales is draining yellow urine.Bed low in position,side rails up and call light within reach. Pt will be monitored.
[2018-10-05 20:00] VITALS: BP 107/64
[2018-10-06] VITALS: BP 147/78
[2018-10-06 04:00] VITALS: BP 129/66
[2018-10-06] MEDS: NovoLOG Insulin Flexpen SUBQ SCH ×5 (05:52→23:33)
--- NOTE | 2018-10-06 07:10 | NUR ---
HAND-OFF: Report given to DAKOTA Brock.
[2018-10-06 07:16] LABS: ANION GAP 8 mmol/L (5-15); BLOOD UREA NITROGEN 34 mg/dL (7-18); CALCIUM 9.3 MG/DL (8.5-10.1); CARBON DIOXIDE 27 MMOL/L (21-32); CHLORIDE 106 MMOL/L (98-107); CREATININE 1.9 MG/DL (0.55-1.30); POTASSIUM 3.7 MMOL/L (3.5-5.1); SODIUM 141 MMOL/L (136-145)
[2018-10-06 07:17] LABS: BASOPHILS % (AUTO) 1.5 % (0.0-2.0); EOSINOPHILS % (AUTO) 0.7 % (0.0-3.0); MEAN CORPUSCULAR VOLUME 105 FL (80-99); MONOCYTES % (AUTO) 5.8 % (1.0-10.0); NEUTROPHILS % (AUTO) 61.1 % (45.0-75.0); PLATELET COUNT 256 K/UL (150-450); RED BLOOD COUNT 2.68 M/UL (4.20-5.40); RED CELL DISTRIBUTION WIDTH 13.8 % (11.6-14.8); WHITE BLOOD COUNT 11.2 K/UL (4.8-10.8)
[2018-10-06 08:00] VITALS: BP 128/62
--- NOTE | 2018-10-06 08:08 | NUR ---
NURSE NOTES: Received patient from Juan Luis RN, patient is resting in bed comfortable, no distress noted, bed is locked and in lowest position, call light within reach, will continue to monitor.
--- NOTE | 2018-10-06 08:19 | Nephrology Progress Note ---
Assessment/Plan Assessment/Plan A/P 1) CKD 4 - mutlifact ATN due to hypotension and sepsis - Cr stable 1.9. OK for DC 2) Met Acidosis- hyperCL-. resolved 3) Septic Shock- urosepsis- Abx per ID - DC on Abx per ID 4) Hypernatremia- resolved. DC IVFs Subjective Date patient seen: Oct 06, 2018 Time patient seen: 08:14 ROS Limited/Unobtainable: Yes Allergies: Coded Allergies: SULFA (SULFONAMIDE ANTIBIOTICS) (Unverified Allergy, Unknown, 09/30/18) COPIED FROM UNCODED Subjective Patient much more awake and alert but minally verbal at baseline Objective Last 24 Hour Vital Signs Date Time Temp Pulse Resp B/P (MAP) Pulse Ox O2 Delivery O2 Flow Rate FiO2 10/06/18 04:00 97.6 97 20 129/66 (87) 98 10/06/18 00:00 97.7 101 20 147/78 (101) 96 10/05/18 21:00 Room Air 10/05/18 20:00 97.7 100 20 107/64 (78) 96 10/05/18 16:00 98.8 97 20 133/71 (91) 96 10/05/18 12:00 98.2 93 18 116/62 (80) 96 10/05/18 08:15 Room Air Intake and Output 10/05/18 10/06/18 19:00 07:00 Intake Total 755 ml 1715 ml Balance 755 ml 1715 ml Intake Free Water 200 ml 400 ml IV Total 75 ml 875 ml Tube Feeding 480 ml 440 ml Laboratory Tests 10/06/18 06:20: White Blood Count 11.2H, Red Blood Count 2.68L, Hemoglobin 9.0L, Hematocrit 28.0L, Mean Corpuscular Volume 105H, Mean Corpuscular Hemoglobin 33.7H, Mean Corpuscular Hemoglobin Concent 32.2, Red Cell Distribution Width 13.8, Platelet Count 256, Mean Platelet Volume 7.3, Neutrophils (%) (Auto) 61.1, Lymphocytes (% ) (Auto) 31.0, Monocytes (%) (Auto) 5.8, Eosinophils (%) (Auto) 0.7, Basophils ( %) (Auto) 1.5, Sodium Level 141, Potassium Level 3.7, Chloride Level 106, Carbon Dioxide Level 27, Anion Gap 8, Blood Urea Nitrogen 34H, Creatinine 1.9H, Estimat Glomerular Filtration Rate , Glucose Level 90, Calcium Level 9.3 Height (Feet): 5 Height (Inches): 9.00 Weight (Pounds): 180 General Appearance: no apparent distress EENT: normal ENT inspection Neck: normal alignment, supple Cardiovascular: normal rate, regular rhythm Respiratory/Chest: lungs clear, normal breath sounds Abdomen: non tender, soft Edema: no edema noted Arm (L), no edema noted Arm (R), no edema noted Leg (L), no edema noted Leg (R), no edema noted Pedal (L), no edema noted Pedal (R), no edema noted Generalized Jakub García MD Oct 06, 2018 08:19
--- NOTE | 2018-10-06 08:22 | Discharge Instructions ---
Discharge Instructions Discharge Instructions Services at Discharge: day care Diet: tube feeding Resume Normal Activity?: Yes Follow Up Orders DC on antibiotics of ID final choice For Congestive Heart Failure Reminder Report to your physician any weight gain of 5 pounds or more in one week. Jakub García MD Oct 06, 2018 08:22
[2018-10-06] MEDS: Heparin 5000 units/ml inj SUBQ SCH ×2 (09:48→21:00)
--- NOTE | 2018-10-06 11:31 | NUR ---
NURSE NOTES: RN spoke with Stevens about discharge, notified doctor that patient is scheduled for a PICC placement on Monday10/08/18 and asked if we should hold the discharge, Dr. García asked RN to clarify antibiotics with Dr. Trujillo to see if PICC line will still be needed or if antibiotics can be changed to oral, RN spoke with Dr. Trujillo and doctor stated to keep antibiotics IV for now and he will reasses patient over the weekend, Dr. García updated, will continue to monitor and provide care.
[2018-10-06 12:00] VITALS: BP 129/56
--- NOTE | 2018-10-06 19:30 | NUR ---
NURSE NOTES: Received patient on bed awake, no s/s of any distress, on O2@2L via NC, GT patent and intact running Glucerna 1.2@ 40/hr, FC draining with gravity, Bed in low position and locked, call light within reach, will continue to monitor.
--- NOTE | 2018-10-06 19:30 | NUR ---
HAND-OFF: Report given to Fransico DUNCAN.
[2018-10-06 20:00] VITALS: BP 129/77
[2018-10-07] VITALS: BP 135/79
[2018-10-07 04:00] VITALS: BP 124/76
[2018-10-07] MEDS: NovoLOG Insulin Flexpen SUBQ SCH ×3 (05:54→18:22)
--- NOTE | 2018-10-07 07:23 | NUR ---
HAND-OFF: Report given to Flori DUNCAN.
--- NOTE | 2018-10-07 07:25 | NUR ---
NURSE NOTES: Received patient in bed, awake.Patient is verbal but unable to answer correct to the questions. No s/s of pain or discomfort per FLACC pain scale. IV intact, no s/s of infiltration. No episode of removing IV. Scales intact, draining well to gravity with yellowish urine. GT intact, HOB elevated for aspiration precaution. Heels are floated on pillow to off load and on pressure releasing mattress. Will continue plan of care.
[2018-10-07 08:00] VITALS: BP 121/62
--- NOTE | 2018-10-07 08:10 | Nephrology Progress Note ---
Assessment/Plan Assessment/Plan A/P 1) CKD 4 - mutlifact ATN due to hypotension and sepsis - Cr stable 1.9. 2) Met Acidosis- hyperCL-. resolved 3) Septic Shock- urosepsis- Abx per ID - DC on Abx per ID. Awaiting PICC line placement on Monday 4) Hypernatremia- resolved. Subjective Allergies: Coded Allergies: SULFA (SULFONAMIDE ANTIBIOTICS) (Unverified Allergy, Unknown, 09/30/18) COPIED FROM UNCODED Subjective Patient much more awake and alert Objective Last 24 Hour Vital Signs Date Time Temp Pulse Resp B/P (MAP) Pulse Ox O2 Delivery O2 Flow Rate FiO2 10/07/18 04:00 98.3 103 20 124/76 (92) 95 10/07/18 00:00 98.1 105 20 135/79 (97) 93 10/06/18 21:00 Room Air 10/06/18 20:00 98.7 103 16 129/77 (94) 95 10/06/18 12:00 98.0 92 18 129/56 (80) 96 10/06/18 08:45 Room Air Intake and Output 10/06/18 10/07/18 19:00 07:00 Intake Total 880 ml 930 ml Output Total 3250 ml Balance -2370 ml 930 ml Intake Free Water 400 ml 400 ml IV Total 50 ml Tube Feeding 480 ml 480 ml Output Urine Total 3250 ml Laboratory Tests 10/07/18 05:00: Random Vancomycin Level 17.5 Height (Feet): 5 Height (Inches): 9.00 Weight (Pounds): 179 General Appearance: alert EENT: normal ENT inspection Neck: normal alignment, supple Cardiovascular: normal rate, regular rhythm Respiratory/Chest: lungs clear, normal breath sounds Abdomen: non tender, soft Edema: no edema noted Arm (L), no edema noted Arm (R), no edema noted Leg (L), no edema noted Leg (R), no edema noted Pedal (L), no edema noted Pedal (R), no edema noted Generalized Jakub García MD Oct 07, 2018 08:10
[2018-10-07] MEDS: Heparin 5000 units/ml inj SUBQ SCH (08:19)
--- NOTE | 2018-10-07 09:55 | Diagnostic Imaging Report ---
EXAM: XR Chest, 1 View CLINICAL HISTORY: INFECT TECHNIQUE: Frontal view of the chest. COMPARISON: Chest x-rays dated 10/04/18 FINDINGS: Lungs: Subsegmental atelectasis versus infiltrate in the medial lung bases. Pleural space: The costophrenic angles appear sharp and no definite effusions are identified. Heart: Unremarkable. No cardiomegaly. Mediastinum: Unremarkable. Bones/joints: Degenerative changes throughout the visualized spine and shoulder joints. Vasculature: Atherosclerotic calcifications within the aortic arch. IMPRESSION: 1. Subsegmental atelectasis versus infiltrate in the medial lung bases. 2. No definite effusions are identified.
[2018-10-07] MEDS ORDERED: Vancomycin 1gm/D5W 275ml IVPB ONE ×2 (10:00)
[2018-10-07 12:00] VITALS: BP 107/62
--- NOTE | 2018-10-07 13:29 | Infectious Diseases Prog Note ---
Assessment/Plan Assessment/Plan ASSESSMENT AND PLAN: 1. sepsis/shock, e.coli/proteus/strep uti/pyelonephritis, leukocytosis, fevers, sirs, chest x-ray with effusion, ? aspiration pna/hcap - change abx to augmentin plus ciprofloxacin orally - day # 7 abx - clinically improved - check labs and chest - x-ray - check sputum culture 2. The patient has acute kidney injury and elevated creatinine. 3. Anemia. 4. Intensive care unit care. 5. Diabetes. 6. Hypertension. 7. Blood sugar and blood pressure treatment for diabetes and hypertension per primary. 8. Hyperlipidemia. 9. Dementia. 10. Chronic obstructive pulmonary disease. 11. Gastroesophageal reflux disease. 12. Gastrostomy tube. 13. Osteoarthrosis. 14. Metabolic encephalopathy. 15. Hypertensive heart disease. 16. Congestive heart failure. 17. Allergies to sulfa drugs. 18. Social history is negative. 19. Family history is noncontributory. 20. MAR was noted. 21. Case was discussed with RN. 22. Continue treatment per primary consultants. 23. vre colonization and isolation Subjective Constitutional: Reports: fatigue; Denies: fever HEENT: Denies: congestion Respiratory: Denies: shortness of breath Cardiovascular: Denies: chest pain Gastrointestinal/Abdominal: Denies: nausea, vomiting, diarrhea Genitourinary: Reports: other - + cruz - urine slt cloudy Neurologic: Denies: headache Psychiatric: Denies: depression Skin: Denies: rash Hematologic: Denies: bleeding Musculoskeletal: Denies: pain Allergies: Coded Allergies: SULFA (SULFONAMIDE ANTIBIOTICS) (Unverified Allergy, Unknown, 09/30/18) COPIED FROM UNCODED Objective Vital Signs Last 24 Hour Vital Signs Date Time Temp Pulse Resp B/P (MAP) Pulse Ox O2 Delivery O2 Flow Rate FiO2 10/07/18 12:00 98.7 89 17 107/62 (77) 96 10/07/18 09:00 Room Air 10/07/18 08:00 98.9 101 20 121/62 (81) 95 10/07/18 04:00 98.3 103 20 124/76 (92) 95 10/07/18 00:00 98.1 105 20 135/79 (97) 93 10/06/18 21:00 Room Air 10/06/18 20:00 98.7 103 16 129/77 (94) 95 Height (Feet): 5 Height (Inches): 9.00 Weight (Pounds): 179 General Appearance: no acute distress HEENT: normocephalic, atraumatic, anicteric Respiratory/Chest: lungs clear, normal breath sounds, no respiratory distress, no accessory muscle use, crackles/rales - ? 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 Pleural space: The costophrenic angles appear sharp and no definite effusions are identified. Heart: Unremarkable. No cardiomegaly. Mediastinum: Unremarkable. Bones/joints: Degenerative changes throughout the visualized spine and shoulder joints. Vasculature: Atherosclerotic calcifications within the aortic arch. IMPRESSION: 1. Subsegmental atelectasis versus infiltrate in the medial lung bases. 2. No definite effusions are identified. Microbiology Date/Time Source Procedure Growth Status 09/30/18 02:25 Blood Blood Culture - Final NO GROWTH AFTER 5 DAYS Complete 09/30/18 03:05 Nasal Nares MRSA Culture - Final NO METHICILLIN RESISTANT STAPH AUREUS... Complete 09/30/18 03:35 Urine,Clean Catch Urine Culture - Final Proteus Mirabilis Escherichia Coli Strep Agalactiae Group B Complete 09/30/18 03:05 Rectum VRE Culture - Final Enterococcus Faecalis - Vre Complete 09/30/18 03:05 Rectum - Final NO CARBAPENEM-RESISTANT ENTEROBACTERI... Complete Labs Test 10/05/18 05:40 10/06/18 06:20 10/07/18 05:00 Sodium Level 151 MMOL/L (136-145) 141 MMOL/L (136-145) Potassium Level 4.9 MMOL/L (3.5-5.1) 3.7 MMOL/L (3.5-5.1) Chloride Level 117 MMOL/L (98-107) 106 MMOL/L (98-107) Carbon Dioxide Level 24 MMOL/L (21-32) 27 MMOL/L (21-32) Anion Gap 10 mmol/L (5-15) 8 mmol/L (5-15) Blood Urea Nitrogen 41 mg/dL (7-18) 34 mg/dL (7-18) Creatinine 2.1 MG/DL (0.55-1.30) 1.9 MG/DL (0.55-1.30) Estimat Glomerular Filtration Rate mL/min (>60) mL/min (>60) Glucose Level 88 MG/DL (74-106) 90 MG/DL (74-106) Calcium Level 9.0 MG/DL (8.5-10.1) 9.3 MG/DL (8.5-10.1) Random Vancomycin Level 16.6 ug/mL 17.5 ug/mL White Blood Count 11.2 K/UL (4.8-10.8) Red Blood Count 2.68 M/UL (4.20-5.40) Hemoglobin 9.0 G/DL (12.0-16.0) Hematocrit 28.0 % (37.0-47.0) Mean Corpuscular Volume 105 FL (80-99) Mean Corpuscular Hemoglobin 33.7 PG (27.0-31.0) Mean Corpuscular Hemoglobin Concent 32.2 G/DL (32.0-36.0) Red Cell Distribution Width 13.8 % (11.6-14.8) Platelet Count 256 K/UL (150-450) Mean Platelet Volume 7.3 FL (6.5-10.1) Neutrophils (%) (Auto) 61.1 % (45.0-75.0) Lymphocytes (%) (Auto) 31.0 % (20.0-45.0) Monocytes (%) (Auto) 5.8 % (1.0-10.0) Eosinophils (%) (Auto) 0.7 % (0.0-3.0) Basophils (%) (Auto) 1.5 % (0.0-2.0) Laboratory Tests Test 10/07/18 05:00 Random Vancomycin Level 17.5 ug/mL Current Medications Medications (Trade) Dose Ordered Sig/Chandu Route PRN Reason Start Time Stop Time Status Last Admin Dose Admin Acetaminophen (Tylenol) 650 mg Q4H PRN ORAL Mild Pain/Temp > 100.5 10/03/18 19:00 10/31/18 18:59 Dextrose (Dextrose 50%) 25 ml Q30M PRN IV Hypoglycemia 10/03/18 18:30 10/30/18 09:29 Dextrose (Dextrose 50%) 50 ml Q30M PRN IV Hypoglycemia 10/03/18 18:30 10/30/18 09:29 Heparin Sodium (Porcine) (Heparin 5000 units/ml) 5,000 units EVERY 12 HOURS SUBQ 10/03/18 21:00 10/30/18 20:59 10/07/18 08:19 Insulin Aspart (NovoLOG) Q6HR SUBQ 10/04/18 00:00 10/30/18 17:59 10/07/18 12:57 Lansoprazole (Prevacid) 30 mg DAILY GT 10/06/18 09:00 11/05/18 08:59 10/07/18 08:18 Meropenem 500 mg/ Sodium Chloride 50 ml @ 100 mls/hr Q12H IVPB 10/05/18 18:00 10/08/18 05:59 10/07/18 05:44 Vancomycin HCl (Vanco rx to dose) 1 ea DAILY PRN MISC Per rx protocol 10/05/18 16:15 11/04/18 16:14 Blanca Leigh MD Oct 07, 2018 13:29
[2018-10-07] MEDS ORDERED: AUGMENTIN 500-1 EACH ORAL (15:41)
[2018-10-07] MEDS ORDERED: CIPRO500 MG PO (15:42)
[2018-10-07 16:00] VITALS: BP 132/71
--- NOTE | 2018-10-07 16:20 | NUR ---
NURSE NOTES: Dr. Trujillo came in and switched IV antibiotics to tab via GT.Rn relayed to Dr. García and received discharge order from Dr. García to d/c patient to [facility]. d/c cruz, d/c IV heplock and d/c PICC line insertion order. Inter facility report given to Katy and she said she would accept the patient. Discharge instruction given to Katy nurse @ [facility]. Rn placed calls to patient's two brother and left messages to inform discharge. RN arranged [facility] for 17:30pm c/o Michael. Awaiting for ambulance.
--- NOTE | 2018-10-07 17:55 | NUR ---
NURSE NOTES: Received a call from [facility] will be [facility] soon. Awaiting for the ambulance.
--- NOTE | 2018-10-07 18:27 | NUR ---
NURSE NOTES: RN spoke to Linda from [facility]. It will take 20 more minutes.Awaiting for the ambulance.
--- NOTE | 2018-10-07 19:27 | NUR ---
NURSE NOTES: Patient discharged to [facility] accompanied by two ambulance personnel in stable condition. No belongings, IV was removed, no s/s of infection on IV removal site. Scales was taken out as well. No bleeding or irritation. Picture obtained on sacral, bilateral heels, no new skin issue or skin break. Uploaded pictures. No s/s of hypo/hyperglycemia. Packet given to ambulance personnel.
--- NOTE | 2018-10-10 10:36 | Discharge Summary ---
Discharge Summary Discharge Summary _ DATE OF ADMISSION: 09/30/2018 DATE OF DISCHARGE: 10/07/2018 DISCHARGED BY: Dr. East REASON FOR ADMISSION: 83 years old female with past medical history of chronic renal insufficiency/ failure, diabetes mellitus, COPD, hypertension, chronic gastrostomy tube, osteoarthritis, history of duodenal ulcer, chronic metabolic encephalopathy osteoarthritis,, anemia, hyperlipidemia, chronic diastolic heart failure, was sent from the care home [facility] for evaluation. Patient was found to have a change in mental status along with respiratory distress and hypoxia. Patient also was found to be hypotensive. Patient was in acute renal failure with creatinine 3.5. After initial workup in emergency department, patient was found to be septic shock, requiring pressor. Central line was placed, and patient admitted to ICU for further management. CONSULTANTS: ID specialist data designer Dr.De Goodman [facility] COURSE: Patient admitted to ICU and started on Levophed. Levophed titrated to keep mean arterial blood pressure above 65. Hemodynamic status was closely monitored. Patient started on empiric antibiotics. Infectious disease specialist closely followed. Blood cultures were negative. Urine culture revealed Proteus, E. coli, and Strep group B. Antibiotic regimen was optimized by ID specialist. Hemodynamic status was closely monitored. Patient initially was on midodrine, which subsequently was discontinued. Blood pressure remained stable. Patient was followed up with chest x-ray, which revealed subsegmental atelectasis versus infiltrate in the medial lung base. Per infectious disease specialist, patient may had in addition to UTI aspiration pneumonia versus healthcare associated pneumonia. Patient was completed 7 days of IV antibiotics. Upon discharge IV antibiotics changed to oral to complete the course at the facility as recommended by infectious disease specialist. Supplemental oxygen provided as needed to keep pulse oximetry above 92%. Pulmonary toilet provided as needed. Patient was able to be weaned from Levophed. Volumes were closely monitored. No need for diuresis at this time. Strict aspiration precautions were maintained. Patient was able to tolerate tube feeding. Side Stitching Machine Operator followed for management of acute renal failure. Renal parameters and electrolytes were closely monitored. Electrolytes were corrected as needed. Nephrotoxics were avoided. According to data designer, patient had chronic kidney disease stage IV. Patient also had initially multifactorial acute tubular necrosis due to hypotension and sepsis. Creatinine stabilized from initial 3.5 down to 1.9 upon discharge. Hemoglobin and hematocrit were closely monitored with goal to keep hemoglobin above 7, remained in the baseline. Blood sugar was managed with sliding scale of insulin on as needed basis. DVT and GI prophylaxis provided. Patient clinically stabilized :WBC from 36.5 down to 11.2. Fevers resolved. Patient was stable for discharge to care home facility for continuation of care. FINAL DIAGNOSES: Septic shock Sepsis E. coli, Proteus, strep UTI/pyelonephritis Possible aspiration pneumonia versus healthcare associated pneumonia Acute metabolic encephalopathy (likely due to sepsis, shock, renal failure) on chronic dementia Diastolic heart failure Acute on chronic metabolic encephalopathy Acute kidney injury/ATN on chronic kidney disease stage IV Multifactorial acute tubular necrosis, due to hypotension and sepsis Anemia Dysphagia, G-tube feeding Hypertension Diabetes mellitus Dementia DISCHARGE MEDICATIONS: See Medication Reconciliation list. DISCHARGE INSTRUCTIONS: Patient was discharged to the care home facility. Follow up with medical doctor at the facility. I have been assigned to dictate discharge summary for this account. I was not involved in the patient's management. Gema Mack NP Oct 10, 2018 10:36
== END 2018-10-07 19:45 | DRG 871 ==
LOC: EDBD 03:09 → EMR 03:47 → EDBEDREQSVC 05:13 → EDBEDREQ 05:14 → ICU 05:20 → EDBEDREQ 05:48 → 2W 10-03 03:45 → 4E 10-03 18:39
DX: A41.9 Sepsis, unspecified organism (principal); R65.21 Severe sepsis with septic shock; J69.0 Pneumonitis due to inhalation of food and vomit; J18.9 Pneumonia, unspecified organism; N17.0 Acute kidney failure with tubular necrosis; N39.0 Urinary tract infection, site not specified; I50.30 Unspecified diastolic (congestive) heart failure; N12 Tubulo-interstitial nephritis, not specified as acute or chronic; I13.0 Hypertensive heart and chronic kidney disease with heart failure and stage 1 through stage 4 chronic kidney disease, or unspecified chronic kidney disease; N18.4 Chronic kidney disease, stage 4 (severe); I50.32 Chronic diastolic (congestive) heart failure; Z43.1 Encounter for attention to gastrostomy; G93.40 Encephalopathy, unspecified; Z93.1 Gastrostomy status; E11.22 Type 2 diabetes mellitus with diabetic chronic kidney disease; B96.20 Unspecified Escherichia coli [E. coli] as the cause of diseases classified elsewhere; B96.4 Proteus (mirabilis) (morganii) as the cause of diseases classified elsewhere; B95.5 Unspecified streptococcus as the cause of diseases classified elsewhere; D64.9 Anemia, unspecified; R13.10 Dysphagia, unspecified; F03.90 Unspecified dementia, unspecified severity, without behavioral disturbance, psychotic disturbance, mood disturbance, and anxiety; K21.9 Gastro-esophageal reflux disease without esophagitis; M19.90 Unspecified osteoarthritis, unspecified site; Z79.4 Long term (current) use of insulin; Z88.2 Allergy status to sulfonamides; E87.6 Hypokalemia; E78.5 Hyperlipidemia, unspecified; J44.9 Chronic obstructive pulmonary disease, unspecified
CPT/HCPCS: 36415; 71045; 80048; 80053; 80202; 81003; 82550; 82553; 82962; 83605; 84484; 85007; 85025; 85610; 85730; 87040; 87081; 87086; 87181; 93005; 96361; 96365; 96367; 96368; 99291; J1815; J8499

== ENCOUNTER 2018-11-20 16:23 | Inpatient (IN) | payer OTHER, MEDICAID ==
[2018-11-20] VITALS (8 sets, daily range): BP systolic 55–111; BP diastolic 37–65
[~2018-11-20] VITALS: Ht 162.6 cm; Wt 83.0 kg
[~2018-11-20 16:23] MED LIST changes: +AUGMENTIN 500-1 EACH ORAL; +CIPRO500 MG PO
--- NOTE | 2018-11-20 16:28 | NUR ---
ED Nurse Note: Pt came from [facility] due to AMS since today and hypotension. Pt upon arrival to ED had BP of 95/57. Pt was sating at 96% of RA. Wheezing noted on pt. Pt has a hx of DM, dementia. Pt skin warm to touch.
[2018-11-20] MEDS ORDERED: Sodium Chloride 3,300 ML IVLG ONE (16:30)
[2018-11-20] MEDS ORDERED: Piperacillin/Tazobactam 3.375 GM in NS 110 ML IVPB ONE (16:30)
[2018-11-20] MEDS ORDERED: Albuterol/Ipratropium 3ml neb HHN ONE (16:30)
--- NOTE | 2018-11-20 17:11 | Emergency Room Report ---
History of Present Illness General Chief Complaint: Altered Mental Status Source: Medical Record, EMS Present Illness HPI Patient presents with cough and fever and altered mentation. The patient comes from a alf facility. She is unable to give me any history. The patient was admitted last month for septic shock. D/C dx: Septic shock Sepsis E. coli, Proteus, strep UTI/pyelonephritis Possible aspiration pneumonia versus healthcare associated pneumonia Acute metabolic encephalopathy (likely due to sepsis, shock, renal failure) on chronic dementia Diastolic heart failure Acute on chronic metabolic encephalopathy Acute kidney injury/ATN on chronic kidney disease stage IV Multifactorial acute tubular necrosis, due to hypotension and sepsis Anemia Dysphagia, G-tube feeding Hypertension Diabetes mellitus Dementia Allergies: Coded Allergies: SULFA (SULFONAMIDE ANTIBIOTICS) (Unverified Allergy, Unknown, 09/30/18) COPIED FROM UNCODED Uncoded Allergies: SULFA (Allergy, Unknown, 11/20/18) Patient History Limited by: medical condition Past Medical History: see triage record, old chart reviewed Social History Narrative SNF Reviewed Nursing Documentation: PMH: Agreed; PSxH: Agreed Nursing Documentation-PMH Hx Cardiac Problems: Yes Hx Hypertension: Yes Hx Diabetes: Yes Hx Cancer: No Hx Gastrointestinal Problems: Yes History Of Psychiatric Problem: Yes - UTI REBAL FAILURE DEMENTIA Hx Neurological Problems: Yes Hx Dementia: Yes Review of Systems All Other Systems: limited Physical Exam Vital Signs Date Time Temp Pulse Resp B/P (MAP) Pulse Ox O2 Delivery O2 Flow Rate FiO2 11/20/18 16:11 115 16 109/53 100 Non-Rebreather 11/20/18 16:30 99.5 11/20/18 16:30 96 Sp02 EP Interpretation: reviewed, normal - however on high flow O2 General Appearance: mild distress, lethargic, obese, other - looks without comprehension, Chronically Ill Head: normocephalic, atraumatic Eyes: bilateral eye normal inspection, bilateral eye PERRL ENT: dry mucus membranes Neck: supple Respiratory: rales, rhonchi, wheezing, expiration, inspiration Cardiovascular #1: regular rate, rhythm, no edema Cardiovascular #2: 2+ radial (R), 2+ femoral (R) Gastrointestinal: non tender, decreased bowel sounds Musculoskeletal: other - contractures Neurologic: motor weakness - LE > UE, but moves legs and arms, other - minimally responsive to pain - not speak Psychiatric: depressed affect Skin: normal color, warm/dry Procedures Critical Care Time Critical Care Time Total Critical Care Time: 60 min bedside evaluation and treatment excludes procedures (EKG, CVP). Reason for critical care: sepsis, repeated evaluations, bronchospasm Possible complications: hypotension, hypertension, [place], shock, arrhythmias, metabolic acidosis, end organ damage, respiratory failure. Interventions: sepsis resuscitation, antibiotics, CVP, pressors, discussion with PMD Course: Patient presents with fever, respiratory distress and cough with wheezing. Evaluation and resuscitation for sepsis along with treatment of bronchospasm. Antibiotics begun covering lung source. Some improvement however IV dislodged prior to full fluid bolus. Central line begun. Fluid boluses administered. Patient reassessed and is still hypotensive. Patient started on Levophed. Discussion with admitting physician as well as review of POLST. Patient with improved blood pressure on Levophed. Repeat x-ray reveals CVP in proper place. Type and Rh ordered for anemia. Consultations: nursing staff, EMS, RT, admitting MD Performed by: Dr. Kumar Tolerated well condition = critical Central Line Central Line : Consent: Emergent Central Line Lumen: triple Maximal Sterile Barrier Tech: yes cap, yes mask, yes sterile gown, yes sterile gloves, yes large sterile sheet, yes hand hygiene, yes chlorhexidine prep Central Line Postion: internal jugular (R) Complications: none Central Line Post Position: sutured, good blood return Attempts: Other - 2 in neck (wire malfunction) - unable to locate or cannulate L femoral area X2 Patient Tolerated: Well Complications: None Progress Inserted with U/S. EBL = 15 cc (10 ml blood for type and Rh) Medical Decision Making Diagnostic Impression: Primary Impression: Severe sepsis Additional Impressions: COPD (chronic obstructive pulmonary disease) Qualified Codes: J44.1 - Chronic obstructive pulmonary disease with (acute) exacerbation Hypernatremia Acute renal failure Qualified Codes: N17.9 - Acute kidney failure, unspecified UTI (urinary tract infection) Qualified Codes: N39.0 - Urinary tract infection, site not specified ER Course Patient presents with cough wheezing fever of the alf facility. Differential includes sepsis, pneumonia, infection from other source, COPD exacerbation, acute myocardial infarction. Evaluation will be with EKG, chest x -ray and labs including blood cultures and lactate. The patient will receive a fluid bolus and also aggressive hydration. In addition she will receive antibiotics and breathing treatments. EKG without injury. Chest x-ray suggestive of left lower lobe infiltrate. White count elevated with potential anemia. Sodium elevated. Elevated magnesium. Clinically has pneumonia. May not show on x ray due to volume depletion. Discussed with Dr. East. CVP as hypotensive and no IV sites. Completion of bolus able to be completed. CVP in SVC Bolus complete and levophed begun as still hypotensive. Based on labs and xray, more likely urinary source of sepsis than pneumonia, however, significant bronchospasm. Told Dr. East patient upgraded to ICU. BP better prior to transfer to ICU. Cap fill good. Mentation unchanged. Type and Rh ordered. (No active bleeding identified though h/o PUD.) Laboratory Tests Test 11/20/18 16:45 11/20/18 16:50 11/20/18 17:45 11/21/18 00:20 White Blood Count 13.5 K/UL (4.8-10.8) H Red Blood Count 2.38 M/UL (4.20-5.40) L Hemoglobin 7.5 G/DL (12.0-16.0) L Hematocrit 24.7 % (37.0-47.0) L Mean Corpuscular Volume 104 FL (80-99) H Mean Corpuscular Hemoglobin 31.7 PG (27.0-31.0) H Mean Corpuscular Hemoglobin Concent 30.5 G/DL (32.0-36.0) L Red Cell Distribution Width 14.9 % (11.6-14.8) H Platelet Count 209 K/UL (150-450) Mean Platelet Volume 8.2 FL (6.5-10.1) Neutrophils (%) (Auto) % (45.0-75.0) Lymphocytes (%) (Auto) % (20.0-45.0) Monocytes (%) (Auto) % (1.0-10.0) Eosinophils (%) (Auto) % (0.0-3.0) Basophils (%) (Auto) % (0.0-2.0) Differential Total Cells Counted 100 Neutrophils % (Manual) 68 % (45-75) Lymphocytes % (Manual) 26 % (20-45) Monocytes % (Manual) 5 % (1-10) Eosinophils % (Manual) 0 % (0-3) Basophils % (Manual) 0 % (0-2) Band Neutrophils 1 % (0-8) Platelet Estimate Adequate Platelet Morphology Normal Hypochromasia 1+ Anisocytosis 1+ Prothrombin Time 10.7 SEC (9.30-11.50) Prothrombin Time INR 1.0 (0.9-1.1) PTT 22 SEC (23-33) L Sodium Level 163 MMOL/L (136-145) *H Potassium Level 4.6 MMOL/L (3.5-5.1) Chloride Level 124 MMOL/L (98-107) H Carbon Dioxide Level 30 MMOL/L (21-32) Anion Gap 10 mmol/L (5-15) Blood Urea Nitrogen 113 mg/dL (7-18) H Creatinine 3.4 MG/DL (0.55-1.30) H Estimate Glomerular Filtration Rate mL/min (>60) Glucose Level 166 MG/DL (74-106) H Lactic Acid Level 2.10 mmol/L (0.4-2.0) H 2.90 mmol/L (0.66-2.22) H 3.30 mmol/L (0.4-2.0) H Calcium Level 9.5 MG/DL (8.5-10.1) Magnesium Level 5.0 MG/DL (1.8-2.4) *H Total Bilirubin 0.2 MG/DL (0.2-1.0) Aspartate Amino Transferase (AST) 20 U/L (15-37) Alanine Aminotransferase (ALT) 31 U/L (12-78) Alkaline Phosphatase 93 U/L (46-116) Total Creatine Kinase 50 U/L (26-308) Troponin I 0.003 ng/mL (0.000-0.056) Pro-B-Type Natriuretic Peptide 794 pg/mL (0-125) H Total Protein 8.0 G/DL (6.4-8.2) Albumin 2.4 G/DL (3.4-5.0) L Globulin 5.6 g/dL Albumin/Globulin Ratio 0.4 (1.0-2.7) L Urine Color Pale yellow Urine Appearance Slightly cloudy Urine pH 7 (4.5-8.0) Urine Specific [place] 1.010 (1.005-1.035) Urine Protein 3+ (NEGATIVE) H Urine Glucose (UA) Negative (NEGATIVE) Urine Ketones Negative (NEGATIVE) Urine Blood 5+ (NEGATIVE) H Urine Nitrite Negative (NEGATIVE) Urine Bilirubin Negative (NEGATIVE) Urine Urobilinogen Normal MG/DL (0.0-1.0) Urine Leukocyte Esterase 3+ (NEGATIVE) H Urine RBC Tntc /HPF (0 - 2) H Urine WBC Tntc /HPF (0 - 2) H Urine Squamous Epithelial Cells Few /LPF (NONE/OCC) Urine Bacteria Many /HPF (NONE) H Test 11/21/18 02:00 11/21/18 03:50 White Blood Count 13.2 K/UL (4.8-10.8) H 13.7 K/UL (4.8-10.8) H Red Blood Count 2.11 M/UL (4.20-5.40) L 2.30 M/UL (4.20-5.40) L Hemoglobin 6.6 G/DL (12.0-16.0) *L 7.2 G/DL (12.0-16.0) L Hematocrit 22.2 % (37.0-47.0) L 24.3 % (37.0-47.0) L Mean Corpuscular Volume 105 FL (80-99) H 106 FL (80-99) H Mean Corpuscular Hemoglobin 31.4 PG (27.0-31.0) H 31.5 PG (27.0-31.0) H Mean Corpuscular Hemoglobin Concent 29.8 G/DL (32.0-36.0) L 29.8 G/DL (32.0-36.0) L Red Cell Distribution Width 15.7 % (11.6-14.8) H 15.9 % (11.6-14.8) H Platelet Count 220 K/UL (150-450) 214 K/UL (150-450) Mean Platelet Volume 9.4 FL (6.5-10.1) 9.0 FL (6.5-10.1) Neutrophils (%) (Auto) % (45.0-75.0) % (45.0-75.0) Lymphocytes (%) (Auto) % (20.0-45.0) % (20.0-45.0) Monocytes (%) (Auto) % (1.0-10.0) % (1.0-10.0) Eosinophils (%) (Auto) % (0.0-3.0) % (0.0-3.0) Basophils (%) (Auto) % (0.0-2.0) % (0.0-2.0) Differential Total Cells Counted 100 Neutrophils % (Manual) 87 % (45-75) H Pending Lymphocytes % (Manual) 9 % (20-45) L Pending Monocytes % (Manual) 1 % (1-10) Eosinophils % (Manual) 0 % (0-3) Basophils % (Manual) 0 % (0-2) Band Neutrophils 3 % (0-8) Nucleated Red Blood Cells 2 /100 WBC Platelet Estimate Adequate Pending Platelet Morphology Normal Pending Hypochromasia 2+ Lactic Acid Level 1.90 mmol/L (0.66-2.22) Sodium Level Pending Potassium Level Pending Chloride Level Pending Carbon Dioxide Level Pending Blood Urea Nitrogen Pending Creatinine Pending Estimate Glomerular Filtration Rate Pending Glucose Level Pending Calcium Level Pending Total Bilirubin Pending Aspartate Amino Transferase (AST) Pending Alanine Aminotransferase (ALT) Pending Alkaline Phosphatase Pending Total Protein Pending Albumin Pending Globulin Pending Microbiology Date/Time Source Procedure Growth Status 11/20/18 16:47 Nasal Nares - Final Complete 11/20/18 16:47 Nasal Nares - Final Complete EKG Diagnostic Results Rate: tachycardiac Rhythm: NSR ST Segments: no acute changes Rhythm Strip Diag. Results EP Interpretation: yes Rhythm: no PVC's, no ectopy, other Chest X-Ray Diagnostic Results Chest X-Ray Diagnostic Results #1: Chest X-Ray Ordered: Yes # of Views/Limited/Complete: 1 View Indication: Other EP Interpretation: Yes Interpretation: no consolidation, no effusion, no pneumothorax, other - COPD Impression: Other Electronically Signed by: Electronically signed by Robert Kumar MD Chest X-Ray Diagnostic Results #2: Chest X-Ray Ordered: Yes # of Views/Limited/Complete: 1 View Indication: Other EP Interpretation: Yes Interpretation: no effusion, no pneumothorax, other - CVP SVC, no sig infiltrate Impression: Other Electronically Signed by: Electronically signed by Robert Kumar MD Last Vital Signs Date Time Temp Pulse Resp B/P (MAP) Pulse Ox O2 Delivery O2 Flow Rate FiO2 11/21/18 04:00 Nasal Cannula 2.0 11/21/18 04:00 111/73 11/21/18 04:00 91 11/21/18 01:30 17 97 11/21/18 00:00 98.9 11/20/18 23:00 21 Status: improved Disposition: ADMITTED INPATIENT Condition: Serious Robert Kumar MD Nov 20, 2018 17:11
[2018-11-20 17:15] LABS: HEMATOCRIT 24.7 % (37.0-47.0); HEMOGLOBIN 7.5 G/DL (12.0-16.0); MEAN CORPUSCULAR VOLUME 104 FL (80-99); PLATELET COUNT 209 K/UL (150-450); RED BLOOD COUNT 2.38 M/UL (4.20-5.40); RED CELL DISTRIBUTION WIDTH 14.9 % (11.6-14.8); WHITE BLOOD COUNT 13.5 K/UL (4.8-10.8)
[2018-11-20 17:17] LABS: APPEARANCE,URINE SLIGHTLY CLOUDY; BILIRUBIN, URINE NEGATIVE (NEGATIVE); COLOR,URINE PALE YELLOW; GLUCOSE, URINE (UA) NEGATIVE (NEGATIVE); KETONES,URINE NEGATIVE (NEGATIVE); LEUKOCYTE ESTERASE ,URINE 3+ (NEGATIVE); NITRITE,URINE NEGATIVE (NEGATIVE); PH,URINE 7 (4.5-8.0); PROTEIN,URINE 3+ (NEGATIVE); UROBILINOGEN,URINE NORMAL MG/DL (0.0-1.0)
[2018-11-20 17:35] LABS: ALANINE AMINOTRANSFERASE 31 U/L (12-78); ALBUMIN 2.4 G/DL (3.4-5.0); ALBUMIN/GLOBULIN RATIO 0.4 (1.0-2.7); ALKALINE PHOSPHATASE 93 U/L (46-116); ANION GAP 10 mmol/L (5-15); ASPARTATE AMINO TRANSFERASE 20 U/L (15-37); BILIRUBIN,TOTAL 0.2 MG/DL (0.2-1.0); BLOOD UREA NITROGEN 113 mg/dL (7-18); CALCIUM 9.5 MG/DL (8.5-10.1); CARBON DIOXIDE 30 MMOL/L (21-32); CHLORIDE 124 MMOL/L (98-107); CREATINE KINASE 50 U/L (26-308); CREATININE 3.4 MG/DL (0.55-1.30); POTASSIUM 4.6 MMOL/L (3.5-5.1)
[2018-11-20 17:37] LABS: SODIUM 163 MMOL/L (136-145)
--- NOTE | 2018-11-20 17:55 | NUR ---
ED Nurse Note: Redness on the sacrum noted and gtube on mid abdomen.
[2018-11-20] MEDS ORDERED: Solu-MEDROL 125mg Inj IVP ONE (18:00)
[2018-11-20] MEDS: LR 1000ml 1,000 ML IV SCH ×2 (18:32→18:48)
--- NOTE | 2018-11-20 19:02 | NUR ---
HAND-OFF: Report given to DAKOTA Laird.
--- NOTE | 2018-11-20 20:33 | NUR ---
ER Nurse Note: ERMD inserted central line; x-ray ordered. Per ERMD verbal order; bolus fluids started without x-ray confirmation. BP 88/54. Charge nurse aware.
--- NOTE | 2018-11-20 22:18 | NUR ---
ER Nurse Note: Pt a&ox0, BP 92/42 HR 86 RR 16 100% O2 2L NC 98.3F rectal temp. BP decreasing during IV fluids; ERMD aware. Central line inserted by Dr. Kumar at 2019; pt tolerated well. Leophed was ordered and being infused. Pt has wheezes; suction as needed. Pt has blanchable redness on sacral, skin intact. Pt has multiple bruises on upper and lower extremities. No strength in all extremities. Pt has 16 Fr cruz cath; draining well; outpt 3000ml. Urine foul and dark. 1BM; soft. Pt bed bound. Will give report to DAKOTA Duncan in ICu for continuity of care.
--- NOTE | 2018-11-20 22:59 | NUR ---
Ferny burns in [facility] - 11/20/18 at 2303 by [email or web address] RODRICK Richardson Note: [id number]
--- NOTE | 2018-11-20 23:00 | NUR ---
ER Nurse Note: Report given to DAKOTA Duncan in ICU for continuity of care.
--- NOTE | 2018-11-20 23:10 | NUR ---
NURSE NOTES:Received pt from ER with DX Pneumonia and hypotension, pt is lethargic,non verbal extremities weak BP 93/65, Sr on the monitor afebrile. Pt was on Levophed drip at 10mcg/min when received from ER, infusing to RT IJ central line site with drsg dry and intact. Pt with blancheable redness sacral area, bilateral heel, bilateral dumont and Ecchymosis to both hands and arms. Picture taken was done , Optifoam placed to sacral area, for prevention.both heels elevated.Will continue to monitor.
[2018-11-21] VITALS: BP 113/68
--- NOTE | 2018-11-21 00:01 | NUR ---
NURSE NOTES:Called Dr East for admission orders. Aware md for abnormal labs , aware also md that pts NA 163., but NS at 100ml/hr still ordered. Updated md of pts latest vital signs and conditions,with orders given and carried out.
[2018-11-21 00:30] VITALS: BP 113/50
[2018-11-21 01:00] VITALS: BP 114/53
--- NOTE | 2018-11-21 01:00 | NUR ---
NURSE NOTES:Sbp >100. Levophed drip down to 8mcg/min.- Will continue to monitor.
[2018-11-21 01:30] VITALS: BP 116/63
[2018-11-21 02:30] LABS: HEMATOCRIT 22.2 % (37.0-47.0); HEMOGLOBIN 6.6 G/DL (12.0-16.0); MEAN CORPUSCULAR VOLUME 105 FL (80-99); PLATELET COUNT 220 K/UL (150-450); RED BLOOD COUNT 2.11 M/UL (4.20-5.40); RED CELL DISTRIBUTION WIDTH 15.7 % (11.6-14.8); WHITE BLOOD COUNT 13.2 K/UL (4.8-10.8)
--- NOTE | 2018-11-21 03:00 | NUR ---
NURSE NOTES:Suctioned tn frothy secretions from mouth, 02 sat >92%- Turned q 2hrs prn with good skin care done.
[2018-11-21] MEDS ORDERED: Zosyn 3.375gm inj ONE (03:03)
[2018-11-21] MEDS: Zosyn 3.375gm in NS 110ml IVPB SCH ×2 (04:39→15:32)
--- NOTE | 2018-11-21 05:00 | NUR ---
NURSE NOTES:Complete bath with bed changed done.
[2018-11-21 05:10] LABS: HEMATOCRIT 24.3 % (37.0-47.0); HEMOGLOBIN 7.2 G/DL (12.0-16.0); MEAN CORPUSCULAR VOLUME 106 FL (80-99); PLATELET COUNT 214 K/UL (150-450); RED CELL DISTRIBUTION WIDTH 15.9 % (11.6-14.8); WHITE BLOOD COUNT 13.7 K/UL (4.8-10.8)
[2018-11-21] MEDS ORDERED: Levophed 4mg/4mL Inj IV ONE (05:20)
[2018-11-21 05:38] LABS: ALANINE AMINOTRANSFERASE 27 U/L (12-78); ALBUMIN/GLOBULIN RATIO 0.4 (1.0-2.7); ALKALINE PHOSPHATASE 73 U/L (46-116); ANION GAP 11 mmol/L (5-15); ASPARTATE AMINO TRANSFERASE 20 U/L (15-37); BILIRUBIN,TOTAL 0.2 MG/DL (0.2-1.0); BLOOD UREA NITROGEN 87 mg/dL (7-18); CALCIUM 8.1 MG/DL (8.5-10.1); CARBON DIOXIDE 25 MMOL/L (21-32); CHLORIDE 126 MMOL/L (98-107); CREATININE 2.7 MG/DL (0.55-1.30); POTASSIUM 4.3 MMOL/L (3.5-5.1)
[2018-11-21 05:39] LABS: SODIUM 162 MMOL/L (136-145)
[2018-11-21] MEDS ORDERED: Piperacillin/Tazobactam 3.375 GM in NS 110 ML IVPB SCH (06:00)
--- NOTE | 2018-11-21 06:00 | NUR ---
NURSE NOTES:Bp still labile ,kept at 10mcg/min of Levophed.
--- NOTE | 2018-11-21 07:12 | NUR ---
NURSE NOTES: Received patient from DAKOTA Gibbons. Patient is asleep, confused, unable to follow commands but able to arouse by light shaking. no distress noted. on 2LNC, Spo2 100%, RR 13. Rhonchi heard bilateral b/s. NPO maintained. GT clamped. bilateral bruising on arms and sacral redness noted. FC draining yellow urine with sediments to gravity. RIJ TLC running Levophed @10mcg/kg/hr and running NS@100cc/hr. BP 102/52. NSR on residential monitor, HR 70. Bed locked, alarmed and in lowest position. Will continue plan of care.
[2018-11-21] MEDS ORDERED: Albuterol/Ipratropium 3ml neb HHN PRN (07:30)
--- NOTE | 2018-11-21 07:31 | NUR ---
HAND-OFF: Report given to Tiarra Mandel RN. walking rounds done.
[2018-11-21] MEDS ORDERED: Heparin 5000 units/ml inj SUBQ SCH (09:00)
[2018-11-21] MEDS: Heparin 5000 units/ml inj SUBQ SCH ×2 (09:00→21:00)
--- NOTE | 2018-11-21 09:00 | NUR ---
NURSE NOTES: Dr. East seeing patient at bedside. See order history for new orders. Dr. Black changed IVF to D5W@75ml/hr. Started GTF glucerna 1.2@30cc/hr. Continue levophed@10, BP 97/50 MAP 63.
--- NOTE | 2018-11-21 10:11 | Diagnostic Imaging Report ---
Indication: Shortness of breath Technique: One view of the chest Comparison: 10/07/2018 Findings: The lungs and pleural spaces are clear. Heart size is normal. The aorta is somewhat ectatic. No significant change Impression: No acute process
[2018-11-21] MEDS: Pantoprazole Inj IVP SCH (10:14)
--- NOTE | 2018-11-21 10:45 | NUR ---
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 SEVERE SEPSIS . HYPERNATREMIA VS: BP 81/54, P 115, T 99.5, RR 26, SpO2 99 on 2.0L O2 NC WBC 13.5, RBC 2.38, H&H 6.6/22.2, Na 162, BUN 87, Cr 2.7 IS:NS x1L IV ALBUTEROL 3ml HHN LEVOFLOXACIN 150ml IVPB ZOSYN 110ml IVPB NS x3.3L IV SOLU-MEDROL 125mg IVP NOREPINEPHRINE 250ml IV ADMITTED TO ICU DCP: RETURN TO
--- NOTE | 2018-11-21 11:04 | Infectious Diseases Prog Note ---
Assessment/Plan Assessment/Plan Full consult dictated: A) 1) sepsis, shock, uti, leukocytosis, lgt 2) chest x-ray negative 3) pmh noted 4) allergies sulfa P) 1) zosyn 2) f/u on cultures, monitor labs 3) thank you Subjective Allergies: Coded Allergies: SULFA (SULFONAMIDE ANTIBIOTICS) (Unverified Allergy, Unknown, 09/30/18) COPIED FROM UNCODED Uncoded Allergies: SULFA (Allergy, Unknown, 11/20/18) Objective Vital Signs Last 24 Hour Vital Signs Date Time Temp Pulse Resp B/P (MAP) Pulse Ox O2 Delivery O2 Flow Rate FiO2 11/21/18 08:00 Nasal Cannula 2.0 11/21/18 08:00 80 11/21/18 05:26 106/43 11/21/18 05:00 106/43 11/21/18 04:00 Nasal Cannula 2.0 11/21/18 04:00 111/73 11/21/18 04:00 91 11/21/18 03:00 106/49 11/21/18 02:00 117/49 11/21/18 01:30 85 17 116/63 (80) 97 11/21/18 01:03 113/68 11/21/18 01:02 114/53 11/21/18 01:00 84 17 114/53 (73) 97 11/21/18 00:30 84 18 113/50 (71) 96 11/21/18 00:00 Nasal Cannula 2.0 11/21/18 00:00 100/60 11/21/18 00:00 98.9 88 19 113/68 (83) 96 11/21/18 00:00 89 11/20/18 23:30 91 19 111/50 (70) 96 11/20/18 23:30 Nasal Cannula 2.0 11/20/18 23:00 98.3 84 16 101/50 100 Nasal Cannula 2.0 21 11/20/18 23:00 93/65 11/20/18 23:00 98.3 84 16 101/50 100 Nasal Cannula 2.0 21 11/20/18 23:00 97.6 92 18 93/65 (74) 96 11/20/18 22:58 101/50 11/20/18 22:43 100/38 11/20/18 22:28 69/30 11/20/18 22:13 88/43 11/20/18 22:04 98.3 88 15 92/47 100 Nasal Cannula 2.0 11/20/18 21:58 92/47 11/20/18 21:43 80/41 11/20/18 21:00 94 18 82/53 99 Nasal Cannula 2.0 11/20/18 20:15 88 20 55/37 100 Nasal Cannula 2.0 11/20/18 20:00 98 22 81/54 96 Room Air 11/20/18 18:47 99.4 92 26 103/61 94 Room Air 21 11/20/18 17:04 105 22 99 Room Air 21 11/20/18 16:54 103 24 93 Room Air 21 11/20/18 16:54 36 11/20/18 16:30 101 19 Room Air 96 11/20/18 16:30 99.5 101 19 95/57 96 Room Air 11/20/18 16:11 115 16 109/53 100 Non-Rebreather Height (Feet): 5 Height (Inches): 4.00 Weight (Pounds): 162 Microbiology Date/Time Source Procedure Growth Status 11/20/18 16:47 Nasal Nares - Final Complete 11/20/18 16:47 Nasal Nares - Final Complete 11/20/18 16:50 Urine,Clean Catch Urine Culture - Preliminary Gram Negative Jefry Resulted 11/20/18 18:18 Rectum Received Laboratory Tests Test 11/20/18 16:45 11/20/18 16:50 11/20/18 17:45 11/21/18 00:20 White Blood Count 13.5 K/UL (4.8-10.8) H Red Blood Count 2.38 M/UL (4.20-5.40) L Hemoglobin 7.5 G/DL (12.0-16.0) L Hematocrit 24.7 % (37.0-47.0) L Mean Corpuscular Volume 104 FL (80-99) H Mean Corpuscular Hemoglobin 31.7 PG (27.0-31.0) H Mean Corpuscular Hemoglobin Concent 30.5 G/DL (32.0-36.0) L Red Cell Distribution Width 14.9 % (11.6-14.8) H Platelet Count 209 K/UL (150-450) Mean Platelet Volume 8.2 FL (6.5-10.1) Neutrophils (%) (Auto) % (45.0-75.0) Lymphocytes (%) (Auto) % (20.0-45.0) Monocytes (%) (Auto) % (1.0-10.0) Eosinophils (%) (Auto) % (0.0-3.0) Basophils (%) (Auto) % (0.0-2.0) Differential Total Cells Counted 100 Neutrophils % (Manual) 68 % (45-75) Lymphocytes % (Manual) 26 % (20-45) Monocytes % (Manual) 5 % (1-10) Eosinophils % (Manual) 0 % (0-3) Basophils % (Manual) 0 % (0-2) Band Neutrophils 1 % (0-8) Platelet Estimate Adequate Platelet Morphology Normal Hypochromasia 1+ Anisocytosis 1+ Prothrombin Time 10.7 SEC (9.30-11.50) Prothromb Time International Ratio 1.0 (0.9-1.1) Activated Partial Thromboplast Time 22 SEC (23-33) L Sodium Level 163 MMOL/L (136-145) *H Potassium Level 4.6 MMOL/L (3.5-5.1) Chloride Level 124 MMOL/L (98-107) H Carbon Dioxide Level 30 MMOL/L (21-32) Anion Gap 10 mmol/L (5-15) Blood Urea Nitrogen 113 mg/dL (7-18) H Creatinine 3.4 MG/DL (0.55-1.30) H Estimat Glomerular Filtration Rate mL/min (>60) Glucose Level 166 MG/DL (74-106) H Lactic Acid Level 2.10 mmol/L (0.4-2.0) H 2.90 mmol/L (0.66-2.22) H 3.30 mmol/L (0.4-2.0) H Calcium Level 9.5 MG/DL (8.5-10.1) Magnesium Level 5.0 MG/DL (1.8-2.4) *H Total Bilirubin 0.2 MG/DL (0.2-1.0) Aspartate Amino Transf (AST/SGOT) 20 U/L (15-37) Alanine Aminotransferase (ALT/SGPT) 31 U/L (12-78) Alkaline Phosphatase 93 U/L (46-116) Total Creatine Kinase 50 U/L (26-308) Troponin I 0.003 ng/mL (0.000-0.056) Pro-B-Type Natriuretic Peptide 794 pg/mL (0-125) H Total Protein 8.0 G/DL (6.4-8.2) Albumin 2.4 G/DL (3.4-5.0) L Globulin 5.6 g/dL Albumin/Globulin Ratio 0.4 (1.0-2.7) L Urine Color Pale yellow Urine Appearance Slightly cloudy Urine pH 7 (4.5-8.0) Urine Specific [place] 1.010 (1.005-1.035) Urine Protein 3+ (NEGATIVE) H Urine Glucose (UA) Negative (NEGATIVE) Urine Ketones Negative (NEGATIVE) Urine Blood 5+ (NEGATIVE) H Urine Nitrite Negative (NEGATIVE) Urine Bilirubin Negative (NEGATIVE) Urine Urobilinogen Normal MG/DL (0.0-1.0) Urine Leukocyte Esterase 3+ (NEGATIVE) H Urine RBC Tntc /HPF (0 - 2) H Urine WBC Tntc /HPF (0 - 2) H Urine Squamous Epithelial Cells Few /LPF (NONE/OCC) Urine Bacteria Many /HPF (NONE) H Test 11/21/18 02:00 11/21/18 03:50 11/21/18 07:36 White Blood Count 13.2 K/UL (4.8-10.8) H 13.7 K/UL (4.8-10.8) H Red Blood Count 2.11 M/UL (4.20-5.40) L 2.30 M/UL (4.20-5.40) L Hemoglobin 6.6 G/DL (12.0-16.0) *L 7.2 G/DL (12.0-16.0) L Hematocrit 22.2 % (37.0-47.0) L 24.3 % (37.0-47.0) L Mean Corpuscular Volume 105 FL (80-99) H 106 FL (80-99) H Mean Corpuscular Hemoglobin 31.4 PG (27.0-31.0) H 31.5 PG (27.0-31.0) H Mean Corpuscular Hemoglobin Concent 29.8 G/DL (32.0-36.0) L 29.8 G/DL (32.0-36.0) L Red Cell Distribution Width 15.7 % (11.6-14.8) H 15.9 % (11.6-14.8) H Platelet Count 220 K/UL (150-450) 214 K/UL (150-450) Mean Platelet Volume 9.4 FL (6.5-10.1) 9.0 FL (6.5-10.1) Neutrophils (%) (Auto) % (45.0-75.0) % (45.0-75.0) Lymphocytes (%) (Auto) % (20.0-45.0) % (20.0-45.0) Monocytes (%) (Auto) % (1.0-10.0) % (1.0-10.0) Eosinophils (%) (Auto) % (0.0-3.0) % (0.0-3.0) Basophils (%) (Auto) % (0.0-2.0) % (0.0-2.0) Differential Total Cells Counted 100 100 Neutrophils % (Manual) 87 % (45-75) H 92 % (45-75) H Lymphocytes % (Manual) 9 % (20-45) L 7 % (20-45) L Monocytes % (Manual) 1 % (1-10) 1 % (1-10) Eosinophils % (Manual) 0 % (0-3) 0 % (0-3) Basophils % (Manual) 0 % (0-2) 0 % (0-2) Band Neutrophils 3 % (0-8) 0 % (0-8) Nucleated Red Blood Cells 2 /100 WBC Platelet Estimate Adequate Adequate Platelet Morphology Normal Normal Hypochromasia 2+ 1+ Lactic Acid Level 1.90 mmol/L (0.66-2.22) Polychromasia 1+ Anisocytosis 1+ Macrocytosis 1+ Sodium Level 162 MMOL/L (136-145) *H Potassium Level 4.3 MMOL/L (3.5-5.1) Chloride Level 126 MMOL/L (98-107) H Carbon Dioxide Level 25 MMOL/L (21-32) Anion Gap 11 mmol/L (5-15) Blood Urea Nitrogen 87 mg/dL (7-18) H Creatinine 2.7 MG/DL (0.55-1.30) H Estimat Glomerular Filtration Rate mL/min (>60) Glucose Level 293 MG/DL (74-106) #H Calcium Level 8.1 MG/DL (8.5-10.1) L Total Bilirubin 0.2 MG/DL (0.2-1.0) Aspartate Amino Transf (AST/SGOT) 20 U/L (15-37) Alanine Aminotransferase (ALT/SGPT) 27 U/L (12-78) Alkaline Phosphatase 73 U/L (46-116) Total Protein 6.9 G/DL (6.4-8.2) Albumin 2.0 G/DL (3.4-5.0) L Globulin 4.9 g/dL Albumin/Globulin Ratio 0.4 (1.0-2.7) L Arterial Blood pH 7.371 (7.350-7.450) Arterial Blood Partial Pressure CO2 44.2 mmHg (35.0-45.0) Arterial Blood Partial Pressure O2 111.4 mmHg (75.0-100.0) H Arterial Blood HCO3 25.0 mmol/L (22.0-26.0) Arterial Blood Oxygen Saturation 97.5 % (95-100) Arterial Blood Base Excess -0.2 (-2-2) Cam Test Positive Current Medications Medications (Trade) Dose Ordered Sig/Chandu Route PRN Reason Start Time Stop Time Status Last Admin Dose Admin Albuterol/ Ipratropium (Albuterol/ Ipratropium) 3 ml Q6H PRN HHN Shortness of Breath 11/21/18 07:30 11/26/18 07:29 Chlorhexidine Gluconate (Sue-Hex 2%) 1 applic DAILY@2000 TOPIC 11/21/18 20:00 12/21/18 19:59 Dextrose 1,000 ml @ 75 mls/hr [id number] IV 11/20/18 19:00 12/20/18 18:59 Dextrose (Dextrose 50%) 25 ml Q30M PRN IV Hypoglycemia 11/21/18 07:30 12/21/18 07:29 Dextrose (Dextrose 50%) 50 ml Q30M PRN IV Hypoglycemia 11/21/18 07:30 12/21/18 07:29 Heparin Sodium (Porcine) (Heparin 5000 units/ml) 5,000 units EVERY 12 HOURS SUBQ 11/21/18 09:00 12/21/18 08:59 Insulin Aspart (NovoLOG) BEFORE MEALS AND HS SUBQ 11/21/18 11:30 12/21/18 11:29 Norepinephrine Bitartrate 4 mg/ Dextrose 250 ml @ 0 mls/hr Q24H IV 11/21/18 00:15 12/21/18 00:14 11/21/18 05:26 Pantoprazole (Protonix) 40 mg DAILY IVP 11/21/18 09:00 12/21/18 08:59 11/21/18 10:14 Piperacillin Sod/ Tazobactam Sod 3.375 gm/Sodium Chloride 110 ml @ 27.5 mls/hr Q12H IVPB 11/21/18 04:30 11/28/18 04:29 11/21/18 04:39 Blanca Leigh MD November 21, 2018 11:04
--- NOTE | 2018-11-21 11:23 | NUR ---
NURSE NOTES: Turned and repositioned. Oral care given. Kept dry and clean.
[2018-11-21] MEDS ORDERED: NovoLOG Insulin Flexpen SUBQ SCH (11:30)
[2018-11-21] MEDS: NovoLOG Insulin Flexpen SUBQ SCH ×2 (11:49→18:07)
--- NOTE | 2018-11-21 12:11 | NUR ---
RD ASSESSMENT & RECOMMENDATIONS SEE CARE ACTIVITY FOR COMPLETE ASSESSMENT DAILY ESTIMATED NEEDS: Needs based on Sepsis, DM, 69kg abw 25-30 kcals/kg 2277-9597 total kcals 1-2 g protein/kg 69-138 g total protein 25-30 mL/kg 1833-7761 total fluid mLs NUTRITION DIAGNOSIS: 1) Swallowing difficulty R/T dysphagia as evidenced by pt is GT dep. 2) Altered nutrition related lab values R/T clinical condition, DM, sepsis as evidenced by critically elev Na (162), elev BUN(87), elev creat (2.7), elev BGs (293 166), elev wbc (13.7), low BP, on pressor support. CURRENT TF:Glucerna 1.2 @ 30ml ENTERAL NUTRITION RECOMMENDATIONS: Glucerna 1.2 @60ml/hr x24 hrs to provide 1440ml, 1728kcal, 86g prot, 1159ml free water - WITH HEMODYNAMIC STABILITY rec to increase TF goal by 10ml/hr q4-6 hrs to goal of 60ml/hr to meet est needs - Flush per MD. HOB over 30 degrees ADDITIONAL RECOMMENDATIONS: 1) Feed to goal w/ hemodynamic stability : Maintain TF @ 30ml/hr while on pressor support(Levo @10mcg at this time) 2) Check lytes daily, replete as needed 3) F/ up w/ WC eval for lt heel and sacral redness per photo 4) Calibrated bedscale wt
--- NOTE | 2018-11-21 13:08 | NUR ---
NURSE NOTES: Wound care nurse seen patient. Turned and repositioned. Continue levophed@10mcg, BP 106/51 MAP 65.
--- NOTE | 2018-11-21 13:45 | NUR ---
Social Service Note Patient has been a resident of [facility] since 01/2008. POLST completed by patient in 2010 indicates Full code, full treatment and trial period of artificial nutrition. Patient doesn't have an advance directive. Patient will continue to require long chain beamer placement upon discharge. Anticipated return to [facility] when medically appropriate. 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 Per Bridgett patient has not had family involvement in several years. Facility assumed patient's older brother Rocael has and nephew Rocael Alonso they have never been able to contact. SNF referred patient to the [facility] and the case was deemed a non-handle and referral was closed. Patient is non-represented. MD to provide consent as needed. Bioethics also available if indicated. Will continue to monitor and assist as needed. PARVEEN discussed with primary nurse.
--- NOTE | 2018-11-21 15:00 | NUR ---
NURSE NOTES: Notified by yudith Najera tech blood culture results=gram positive cocci clusters x2 bottles. Notified Dr. East and Dr. Trujillo. received orders from Dr. Trujillo for x1 vanco 1gm IV and pharmacy to dose, thereafter. Read back given and verified.
--- NOTE | 2018-11-21 15:19 | NUR ---
NURSE NOTES: Titrated patient to meet MAP >60. BP 108/59, MAP 69. Patient asleep, signs of distress. Addendum: 11/21/18 at 1629 by JOSE ARMANDO HOLT RN No signs of distress
[2018-11-21] MEDS ORDERED: Vancomycin 1 GM in D5W 275 ML IVPB ONE (16:00)
--- NOTE | 2018-11-21 16:43 | NUR ---
*-* INSURANCE *-* CLINICALS AND REVIEW HAVE BEEN FAXED TO: [employer] AUTH# [id number]* NCM: PETRA P:[phone] EXT [phone] F:[phone] FAX CLINICALS
--- NOTE | 2018-11-21 16:45 | Consultation ---
DATE OF CONSULTATION: 11/21/2018 CONSULTING PHYSICIAN: Jakub García M.D. REFERRING PHYSICIAN: Maxim East M.D. REASON FOR CONSULTATION: 1. Acute kidney injury. 2. Hypernatremia. 3. Severe volume depletion. HISTORY OF PRESENT ILLNESS: The patient was admitted overnight from the emergency room for further evaluation and care of cough, fever, and acute encephalopathy with altered mentation. The patient was brought in from her [facility] facility. She had been recently admitted for similar symptoms. Diagnosed with severe dehydration and possible sepsis and transferred to the intensive care unit and started on IV broad spectrum antibiotics with IV fluids. The patient does have a G-tube for nutrition. ALLERGIES: Sulfa. PAST MEDICAL HISTORY: Septic shock, diastolic heart failure, acute encephalopathy, acute kidney injury, anemia, dysphagia, hypertension, diabetes, and dementia. SOCIAL HISTORY: No tobacco, alcohol, or illicit drug use. FAMILY HISTORY: Positive for diabetes and hypertension. REVIEW OF SYSTEMS: Cannot obtain as the patient is confused. PHYSICAL EXAMINATION: VITAL SIGNS: Blood pressure 106/43 and pulse 91. 97% oxygen saturation on 2 L nasal cannula. GENERAL: The patient is awake, arousable, confused. HEENT: Extraocular muscles intact. No lymphadenopathy noted. CARDIOVASCULAR: S1 and S2. No rubs or gallops. PULMONARY: Mild upper rhonchi with fair air movement in all lung hinson. ABDOMEN: Nondistended and nontender. Fair bowel sounds. EXTREMITIES: No edema. LABORATORY DATA: Labs dated 11/21/2018, sodium 162, potassium 4.3, chloride 126, and bicarb 25. Calcium 8.1. White cell count 13.7, hemoglobin 7.2, and platelet count 214,000. ASSESSMENT AND PLAN: 1. Acute kidney injury secondary to multifactorial acute tubular necrosis from ischemic acute tubular necrosis from hypotension and proximal tubule injury from inflammatory cytokine due to sepsis. At this time, continue IV fluids, hypotonic in nature with IV pressor support to keep mean arterial blood pressure greater than 65 mmHg in addition intravenous broad spectrum antibiotics. 2. Septic shock. Defer management to primary care team. Broad spectrum antibiotics with IV fluids. 3. Severe volume depletion. Serum sodium 161. We will change intravenous fluids to hypotonic D5W. If the patient requires more aggressive hydration for hemodynamic stability, we will change it back to one-half normal saline. Continue to monitor her hemodynamic stability. 4. Hypotension secondary to sepsis. Continue Levophed and fluid boluses p.r.n. with normal saline. Let me take this opportunity to thank Dr. East. Jakub García MD DR: NARESH JOB#: [id number] CC:
--- NOTE | 2018-11-21 17:18 | NUR ---
NURSE NOTES: P200 mattress placed, turned repositioned, oral care given. kept dry and clean. no signs of distress noted.
--- NOTE | 2018-11-21 17:30 | History and Physical Report ---
DATE OF ADMISSION: 11/20/2018 HISTORY OF PRESENT ILLNESS: This is an elderly patient who is a senior care resident. She was transported from the senior care to the facility with altered mental status and cough. The patient was not able to provide any further history. Overnight, the patient required IV pressors and is currently in the ICU. Based on review of records and prior history, I note that the patient has a history of renal failure in past, history of COPD, diastolic congestive heart failure, hypertension, diabetes mellitus, dementia, chronic encephalopathy, hypertension, GERD, history of duodenal ulcer, osteoarthrosis. PREVIOUS SURGERIES: Include chronic G-tube. HOME MEDICATIONS: Included aspirin, Lipitor, Carafate, cranberry, Colace, albuterol, Atrovent, Claritin, Namenda, NovoLog, Tylenol, vitamin C, rivastigmine, Reglan. ALLERGIES: Sulfa. SOCIAL HISTORY: Not known. The patient is a senior care resident. PHYSICAL EXAMINATION: GENERAL: Revealed an elderly female. HEENT: Unremarkable. LUNGS: Clear breath sounds bilaterally with decreased breath sounds at the bases. ABDOMEN: Soft. G-tube is noted. EXTREMITIES: There is no edema. There is a stage I sacral decubitus. LABORATORY DATA: Lab testing shows white count 13,000, hemoglobin of 7.5, platelet count is normal. Sodium 162, creatinine of 2.7. Coags are normal. Urinalysis shows too numerous to count wbc's. IMAGING STUDIES: Per ER physician and per my review, the x-ray chest obtained yesterday does not show any clear infiltrate. IMPRESSION: 1. Sepsis. 2. UTI. 3. COPD. 4. Diabetes mellitus. 5. Chronic G-tube. 6. Dementia. 7. Severe hypernatremia. 8. Acute renal failure. DISCUSSION: 1. Septic shock. We will initiate broad-spectrum antibiotics. We will consult ID. Send urine, sputum, and blood cultures. 2. Decubitus. We will initiate wound care. At this time, no further intervention required. 3. Enteral feedings. We will resume enteral feedings and also add Protonix. 4. DVT prophylaxis. We will initiate heparin subcu. 5. Hypernatremia. We will initiate hypotonic fluid . Also Nephrology consult. 6. Diabetes mellitus. We will initiate insulin sliding scale. Consult Endocrinology. 7. COPD. At this time, we will check ABG. Continue oxygen. 8. Hypertension. Currently hypotensive on Levophed. 9. Metabolic encephalopathy. We will resume home medications. The patient is a Full Code. Discussed with nursing staff. The patient has a POLST. We will follow carefully. Maxim East M.D. DR: ZURI JOB#: [id number] CC:
[2018-11-21] MEDS ORDERED: Tubing IV Secondary IV ONE (17:58)
[2018-11-21] MEDS ORDERED: D5W 275ml ONE (17:58)
--- NOTE | 2018-11-21 19:11 | NUR ---
HAND-OFF: Report given to DAKOTA Gibbons using SBAR.
--- NOTE | 2018-11-21 19:30 | NUR ---
NURSE NOTES:Received pt with eyes close but easily arousable with tactile stimulation, SR on the monitor afebrile. On 02 at 2L/NC resp even and spont. No SOB noted, congested once in a while. Suctioned tkn whitish with blood tinged secretions. HOB kept elevated. watch for any resp. distress. Pt on Levophed drip[ at 8 mcg/min. Bp still labile. D5W at 75ml/hr, infusing well per RT IJ central line. Site with drsg dry and intact. Scales to gravityn with lg amt of yellowish urine. Tolerated Glucerna 1.2 GT fdg at this time. No residuals. HOB kept elevated. On aspiration precaution. Sacral pressure sore and scattered ecchymosis also were noted both hands and arms. Sacral area with optifoam drsg dry and intact.Will continue to monitor.
[2018-11-21] MEDS: Dyna-Hex 2% Top Sol 2oz TOPIC SCH (20:07)
[2018-11-21] MEDS: Levemir Flexpen SUBQ SCH (20:39)
--- NOTE | 2018-11-21 21:00 | NUR ---
NURSE NOTES:Heparin subcut on hold due to low HGB/HCT and bloody mucous secretions.
--- NOTE | 2018-11-21 22:00 | NUR ---
NURSE NOTES:Had x1 mod size grayish stools. Cleaned up pt.
[2018-11-22] VITALS (34 sets, daily range): BP systolic 82–122; BP diastolic 29–67
--- NOTE | 2018-11-22 | NUR ---
NURSE NOTES:Pts fight and resists during suctioning.- able to obtain blood tinged mucous secretions. had another stool at this time. Cleaned up.
[2018-11-22] MEDS: NovoLOG Insulin Flexpen SUBQ SCH ×5 (00:31→23:35)
--- NOTE | 2018-11-22 02:00 | NUR ---
NURSE NOTES:Complete bath with bed changed was done.
--- NOTE | 2018-11-22 03:00 | Consultation ---
DATE OF CONSULTATION: 11/21/2018 ENDOCRINOLOGY CONSULTATION CONSULTING PHYSICIAN: Jack Bonilla M.D. REFERRING PHYSICIAN: Maxim East M.D. REASON FOR CONSULTATION: Diabetes management. HISTORY OF PRESENT ILLNESS: It is important to note that history is obtained from the review of the chart and medical records. The patient is not able to provide any meaningful history. The patient is an 83-year-old female, who is a resident of the alf facility with history of diabetes, dementia, on G-tube feeding, who presented to the hospital with hypotension and sepsis, admitted to the ICU. Currently on pressors. I was called to manage diabetes. PAST SURGICAL HISTORY: G-tube placement. PAST MEDICAL HISTORY: 1. CHF. 2. COPD. 3. Diabetes. 4. Dementia. 5. Encephalopathy. 6. Hypertension. 7. GERD. 8. Duodenal ulcer. 9. Osteoarthritis. MEDICATIONS: Home medications reviewed and reconciled. Outpatient medications reviewed and reconciled. ALLERGIES: To sulfa. SOCIAL HISTORY: From alf facility. No smoking, alcohol, or drug use. PHYSICAL EXAMINATION: GENERAL: The patient is lethargic. VITAL SIGNS: Blood pressure is 132/80, pulse 70, temperature 99, respiratory rate 18. HEENT: Pupils equal and reactive to light. Sclerae anicteric. NECK: No JVD. HEART: Regular. LUNGS: Clear. ABDOMEN: Positive bowel sounds. EXTREMITIES: Trace edema. DIAGNOSES: 1. Sepsis. 2. Dementia. 3. Dysphagia. 4. Diabetes out of control. PLAN: 1. Add Levemir 8 units b.i.d. 2. Continue NovoLog sliding scale every 6 hours. 3. Tube feedings running and is continuous and is tolerated. 4. Further adjustment according to blood glucose values. Thank you, Dr. East, for the courtesy of this consultation. Jack Bonilla M.D. DR: JEFFY JOB#: [id number] CC: CHOCO
[2018-11-22] MEDS: Zosyn 3.375gm in NS 110ml IVPB SCH ×2 (04:36→17:27)
--- NOTE | 2018-11-22 04:50 | NUR ---
NURSE NOTES:Resting well. snoring at this time. 02 sat 99%.
[2018-11-22 04:55] LABS: HEMATOCRIT 23.7 % (37.0-47.0); HEMOGLOBIN 7.2 G/DL (12.0-16.0); MEAN CORPUSCULAR VOLUME 105 FL (80-99); PLATELET COUNT 187 K/UL (150-450); RED BLOOD COUNT 2.26 M/UL (4.20-5.40); RED CELL DISTRIBUTION WIDTH 15.7 % (11.6-14.8); WHITE BLOOD COUNT 16.8 K/UL (4.8-10.8)
--- NOTE | 2018-11-22 05:00 | Consultation ---
DATE OF CONSULTATION: 11/21/2018 CARDIOLOGY CONSULTATION CONSULTING PHYSICIAN: Robert Cuellar M.D. REQUESTING PHYSICIAN: Maxim East M.D. REASON FOR CONSULTATION: Shock. HISTORY OF PRESENT ILLNESS: This is an 83-year-old female, who resides at a shelter facility and was transferred to the emergency room for evaluation of fever, cough, congestion, and altered mentation. She was found to be hypotensive. She was given fluid challenges, but failed to improve and then started on pressor support and admitted to the intensive care unit. PAST MEDICAL HISTORY: Includes hypertensive heart disease, chronic kidney disease, anemia of chronic disease, cerebrovascular disease with dementia, type 2 diabetes mellitus, dysphagia with G-tube, osteoarthritis, history of duodenal ulcer, gastroesophageal reflux disease, chronic encephalopathy, history of diastolic congestive heart failure, and history of chronic obstructive pulmonary disease. MEDICATIONS: Prior to admission, reviewed and reconciled. ALLERGIES: Include sulfa. SOCIAL HISTORY: Not obtainable. FAMILY HISTORY: Not known. REVIEW OF SYSTEMS: Not obtainable. A 15 minutes of time was spent reviewing the alf chart and pertinent data that was obtained is outlined above. PHYSICAL EXAMINATION: VITAL SIGNS: In the emergency room, blood pressure 88/43, heart rate 84, and respiratory rate 16. She was afebrile. Today, blood pressure ranging from 71/45 to 127/57, heart rate 80 to 90, respiratory rate 18 to 25, and afebrile. GENERAL: Moderately obese. LUNGS: Diminished breath sounds. HEART: Regular rhythm and rate. Normal S1, S2. ABDOMEN: Obese. G-tube intact. EXTREMITIES: Trace dependent edema. Poor skin turgor. NEUROLOGIC: Poorly responsive. Noncommunicative. LABORATORY DATA: White count 13.7 and hemoglobin 7.2. Sodium 162, potassium 4.3, bicarbonate 25, BUN 87, creatinine 2.7, and glucose 293. Lactic acid 3.3 earlier and now 1.9 and albumin 2.0. Chest x-ray on admission revealed no acute process. Urinalysis with qlv-ywcyvazx-wi-count white cells. IMPRESSION: 1. Shock due to sepsis and hypovolemia. 2. Severe dehydration and hypernatremia. 3. Acute on chronic renal failure. 4. Urinary tract infection. 5. Dysphagia with G-tube. 6. Chronic encephalopathy due to cerebrovascular disease. 7. Resolved lactic acidosis. 8. Severe protein-calorie malnutrition. PLAN: 1. Intensive care unit care. 2. Volume support. 3. Pressor support with taper. 4. Free water replacement. 5. Insulin coverage by sliding scale. 6. Nutrition by feeding tube with protein supplement. 7. DVT prophylaxis. 8. Broad-spectrum antimicrobials. 9. We will follow. Robert Cuellar M.D. DR: ANNABELLA JOB#: [id number] CC:
[2018-11-22 05:15] LABS: ANION GAP 12 mmol/L (5-15); BLOOD UREA NITROGEN 55 mg/dL (7-18); CALCIUM 7.9 MG/DL (8.5-10.1); CARBON DIOXIDE 22 MMOL/L (21-32); CHLORIDE 120 MMOL/L (98-107); CREATININE 2.4 MG/DL (0.55-1.30); POTASSIUM 3.7 MMOL/L (3.5-5.1); SODIUM 154 MMOL/L (136-145)
--- NOTE | 2018-11-22 06:00 | NUR ---
NURSE NOTES:Accucheck 202mg/dl with coverage.
--- NOTE | 2018-11-22 06:54 | General Progress Note ---
Assessment/Plan Problem List: (1) COPD (chronic obstructive pulmonary disease) ICD Codes: J44.9 - Chronic obstructive pulmonary disease, unspecified SNOMED: 55568484 Qualifiers: Qualified Codes: J44.1 - Chronic obstructive pulmonary disease with (acute) exacerbation (2) Severe sepsis ICD Codes: A41.9 - Sepsis, unspecified organism; R65.20 - Severe sepsis without septic shock SNOMED: 02294848 (3) Diabetes ICD Codes: E11.9 - Type 2 diabetes mellitus without complications SNOMED: 83217627 (4) Feeding by G-tube ICD Codes: Z93.1 - Gastrostomy status SNOMED: 131949106, 168778999 (5) Aspiration pneumonia ICD Codes: J69.0 - Pneumonitis due to inhalation of food and vomit SNOMED: 201903012 Assessment/Plan: increase Levemir to 10 units bid continue NISS every 6 hours Subjective ROS Limited/Unobtainable: Yes Allergies: Coded Allergies: SULFA (SULFONAMIDE ANTIBIOTICS) (Unverified Allergy, Unknown, 09/30/18) COPIED FROM UNCODED Uncoded Allergies: SULFA (Allergy, Unknown, 11/20/18) Subjective events noted Item Value Date Time Bedside Blood Glucose 202 mg/dl H 11/22/18 0620 Bedside Blood Glucose 202 mg/dl H 11/22/18 0031 Bedside Blood Glucose 193 mg/dl H 11/21/18 2039 Bedside Blood Glucose 238 mg/dl H 11/21/18 1807 Bedside Blood Glucose 218 mg/dl H 11/21/18 1149 Objective Last 24 Hour Vital Signs Date Time Temp Pulse Resp B/P (MAP) Pulse Ox O2 Delivery O2 Flow Rate FiO2 11/22/18 04:38 123/57 11/22/18 02:02 Nasal Cannula 2.0 28 11/22/18 02:01 80 25 Nasal Cannula 2.0 28 11/22/18 00:00 Nasal Cannula 2.0 11/21/18 20:08 71/45 11/21/18 20:00 Nasal Cannula 2.0 11/21/18 18:00 127/57 11/21/18 17:00 98/37 11/21/18 16:00 77 11/21/18 16:00 117/49 11/21/18 16:00 Nasal Cannula 2.0 11/21/18 15:00 107/51 11/21/18 14:00 103/49 11/21/18 13:30 123/58 11/21/18 13:00 106/51 11/21/18 12:00 Nasal Cannula 2.0 11/21/18 12:00 78 11/21/18 12:00 114/51 11/21/18 11:44 106/43 11/21/18 11:00 94/49 11/21/18 10:00 109/45 11/21/18 09:00 108/46 11/21/18 08:00 Nasal Cannula 2.0 11/21/18 08:00 106/53 11/21/18 08:00 80 11/21/18 07:00 89/70 Intake and Output 11/21/18 11/22/18 19:00 07:00 Intake Total 1712.325 ml 270 ml Output Total 690 ml Balance 1712.325 ml -420 ml Intake Free Water 120 ml 60 ml IV Total 1232.325 ml Tube Feeding 360 ml 210 ml Output Urine Total 690 ml # Voids 1200 # Bowel Movements 4 3 Laboratory Tests 11/21/18 07:36: Arterial Blood pH 7.371, Arterial Blood Partial Pressure CO2 44.2, Arterial Blood Partial Pressure O2 111.4H, Arterial Blood HCO3 25.0, Arterial Blood Oxygen Saturation 97.5, Arterial Blood Base Excess -0.2, Cam Test Positive 11/22/18 03:45: White Blood Count 16.8H, Red Blood Count 2.26L, Hemoglobin 7.2L, Hematocrit 23.7L, Mean Corpuscular Volume 105H, Mean Corpuscular Hemoglobin 32.0H, Mean Corpuscular Hemoglobin Concent 30.5L, Red Cell Distribution Width 15.7H, Platelet Count 187, Mean Platelet Volume 9.2, Neutrophils (%) (Auto) , Lymphocytes (%) (Auto) , Monocytes (%) (Auto) , Eosinophils (%) (Auto) , Basophils (%) (Auto) , Neutrophils % (Manual) [Pending], Lymphocytes % (Manual) [Pending], Platelet Estimate [Pending], Platelet Morphology [Pending], Sodium Level 154H, Potassium Level 3.7, Chloride Level 120H, Carbon Dioxide Level 22, Anion Gap 12, Blood Urea Nitrogen 55H, Creatinine 2.4H, Estimat Glomerular Filtration Rate , Glucose Level 237H, Calcium Level 7.9L Height (Feet): 5 Height (Inches): 4.00 Weight (Pounds): 162 General Appearance: lethargic Neck: normal alignment Cardiovascular: normal rate Respiratory/Chest: decreased breath sounds Abdomen: normal bowel sounds Edema: 1+ Arm (L), 1+ Arm (R), 1+ Leg (L), 1+ Leg (R), 1+ Pedal (L), 1+ Pedal ( R), 1+ Generalized Objective Current Medications Medications (Trade) Dose Ordered Sig/Chandu Route PRN Reason Start Time Stop Time Status Last Admin Dose Admin Albuterol/ Ipratropium (Albuterol/ Ipratropium) 3 ml Q6H PRN HHN Shortness of Breath 11/21/18 07:30 11/26/18 07:29 Chlorhexidine Gluconate (Sue-Hex 2%) 1 applic DAILY@2000 TOPIC 11/21/18 20:00 12/21/18 19:59 11/21/18 20:07 Dextrose 1,000 ml @ 75 mls/hr [id number] IV 11/20/18 19:00 12/20/18 18:59 11/21/18 20:08 Dextrose (Dextrose 50%) 25 ml Q30M PRN IV Hypoglycemia 11/21/18 19:45 12/21/18 19:44 Dextrose (Dextrose 50%) 50 ml Q30M PRN IV Hypoglycemia 11/21/18 19:45 12/21/18 19:44 Heparin Sodium (Porcine) (Heparin 5000 units/ml) 5,000 units EVERY 12 HOURS SUBQ 11/21/18 09:00 12/21/18 08:59 Insulin Aspart (NovoLOG) Q6HR SUBQ 11/21/18 12:00 12/21/18 11:59 11/22/18 06:20 Insulin Detemir (Levemir) 8 units BID SUBQ 11/21/18 19:45 12/21/18 19:44 11/21/18 20:39 Norepinephrine Bitartrate 4 mg/ Dextrose 250 ml @ 0 mls/hr Q24H IV 11/21/18 00:15 12/21/18 00:14 11/22/18 04:38 Pantoprazole (Protonix) 40 mg DAILY IVP 11/21/18 09:00 12/21/18 08:59 11/21/18 10:14 Piperacillin Sod/ Tazobactam Sod 3.375 gm/Sodium Chloride 110 ml @ 27.5 mls/hr Q12H IVPB 11/21/18 04:30 11/28/18 04:29 11/22/18 04:36 Vancomycin HCl (Vanco rx to dose) 1 ea DAILY PRN MISC Per rx protocol 11/21/18 15:00 12/21/18 14:59 Jack Bonilla MD November 22, 2018 06:53
--- NOTE | 2018-11-22 07:30 | NUR ---
HAND-OFF: Report given to Robert DUNCAN.
--- NOTE | 2018-11-22 08:15 | NUR ---
NURSE NOTES: Dr. Membreno at the bedside with patient and updated on the bmp levels, bmp levels are trending down to normal levels, no verbal orders given at this time,
--- NOTE | 2018-11-22 08:19 | Nephrology Progress Note ---
Assessment/Plan Assessment/Plan: A/P 1. NAOMY secondary to multifactorial ATN from ischemia/vol depletion and proximal tubule injury from inflammatory cytokines due to sepsis. At this time, continue IV fluids, hypotonic in nature with IV pressor support to keep mean arterial blood pressure greater than 65 mmHg - BUN/Cr much improved 2. Septic shock. Defer management to primary care team. -Broad spectrum antibiotics with hypotonic IV fluids. 3. Severe volume depletion. Serum sodium down to 154. - continue D5W 4. Hypotension secondary to sepsis. Continue Levophed and fluid boluses 5. Hypokalemia- corrected Subjective Date patient seen: November 22, 2018 Time patient seen: 08:13 ROS Limited/Unobtainable: Yes Allergies: Coded Allergies: SULFA (SULFONAMIDE ANTIBIOTICS) (Unverified Allergy, Unknown, 09/30/18) COPIED FROM UNCODED Uncoded Allergies: SULFA (Allergy, Unknown, 11/20/18) Subjective Patient awake but nonverbal Objective Last 24 Hour Vital Signs Date Time Temp Pulse Resp B/P (MAP) Pulse Ox O2 Delivery O2 Flow Rate FiO2 11/22/18 07:00 98/47 11/22/18 06:35 74 20 Nasal Cannula 2.0 28 11/22/18 06:35 Nasal Cannula 2.0 28 11/22/18 06:00 109/53 11/22/18 05:00 86/43 11/22/18 04:38 123/57 11/22/18 04:00 Nasal Cannula 2.0 11/22/18 04:00 75 11/22/18 04:00 123/57 11/22/18 03:00 112/54 11/22/18 02:02 Nasal Cannula 2.0 28 11/22/18 02:01 80 25 Nasal Cannula 2.0 28 11/22/18 02:00 128/74 11/22/18 01:00 121/48 11/22/18 00:00 76 11/22/18 00:00 Nasal Cannula 2.0 11/22/18 00:00 110/47 11/21/18 23:00 95/45 11/21/18 22:00 102/48 11/21/18 21:00 108/47 11/21/18 20:08 71/45 11/21/18 20:00 Nasal Cannula 2.0 11/21/18 20:00 75 11/21/18 18:00 127/57 11/21/18 17:00 98/37 11/21/18 16:00 77 11/21/18 16:00 117/49 11/21/18 16:00 Nasal Cannula 2.0 11/21/18 15:00 107/51 11/21/18 14:00 103/49 11/21/18 13:30 123/58 11/21/18 13:00 106/51 11/21/18 12:00 Nasal Cannula 2.0 11/21/18 12:00 78 11/21/18 12:00 114/51 11/21/18 11:44 106/43 11/21/18 11:00 94/49 11/21/18 10:00 109/45 11/21/18 09:00 108/46 Intake and Output 11/21/18 11/22/18 19:00 07:00 Intake Total 1712.325 ml 2385.0 ml Output Total 1121 ml Balance 1712.325 ml 1264.0 ml Intake Free Water 120 ml 90 ml IV Total 1232.325 ml 1935.0 ml Tube Feeding 360 ml 360 ml Output Urine Total 1120 ml Stool Total 1 ml # Voids 1200 # Bowel Movements 4 4 Laboratory Tests 11/22/18 03:45: White Blood Count 16.8H, Red Blood Count 2.26L, Hemoglobin 7.2L, Hematocrit 23.7L, Mean Corpuscular Volume 105H, Mean Corpuscular Hemoglobin 32.0H, Mean Corpuscular Hemoglobin Concent 30.5L, Red Cell Distribution Width 15.7H, Platelet Count 187, Mean Platelet Volume 9.2, Neutrophils (%) (Auto) , Lymphocytes (%) (Auto) , Monocytes (%) (Auto) , Eosinophils (%) (Auto) , Basophils (%) (Auto) , Neutrophils % (Manual) [Pending], Lymphocytes % (Manual) [Pending], Platelet Estimate [Pending], Platelet Morphology [Pending], Sodium Level 154H, Potassium Level 3.7, Chloride Level 120H, Carbon Dioxide Level 22, Anion Gap 12, Blood Urea Nitrogen 55H, Creatinine 2.4H, Estimat Glomerular Filtration Rate , Glucose Level 237H, Calcium Level 7.9L Height (Feet): 5 Height (Inches): 4.00 Weight (Pounds): 160 General Appearance: no apparent distress EENT: normal ENT inspection Neck: normal alignment Cardiovascular: normal rate, regular rhythm Respiratory/Chest: lungs clear, normal breath sounds Abdomen: non tender, soft Edema: no edema noted Arm (L), no edema noted Arm (R), no edema noted Leg (L), no edema noted Leg (R), no edema noted Pedal (L), no edema noted Pedal (R), no edema noted Generalized Jakub García MD November 22, 2018 08:19
--- NOTE | 2018-11-22 09:08 | Pulmonology Progress Note ---
Assessment/Plan Assessment/Plan IMPRESSION: 1. Sepsis and bacteremia. 2. UTI. 3. COPD. 4. Diabetes mellitus. 5. Chronic G-tube. 6. Dementia. 7. Severe hypernatremia. 8. Acute renal failure. DISCUSSION: 1. Septic shock. Continue broad-spectrum antibiotics. Send urine, sputum, and blood cultures. 2. Decubitus. I will initiate wound care. At this time, no further intervention required. 3. Enteral feedings. I will resume enteral feedings and also continue Protonix. 4. DVT prophylaxis. Continue heparin subcu. 5. Hypernatremia. Continuehypotonic fluid. Appreciate nephrology consult. 6. Diabetes mellitus. Continue insulin sliding scale. Seen by endocrinology. 7. COPD. Continue oxygen. 8. Hypertension. Currently hypotensive on Levophed. 9. Metabolic encephalopathy. The patient is a Full Code. Discussed with nursing staff. The patient has a POLST. I will follow carefully. Maxim East MD Subjective Interval Events: None new; On levophed 6 rahcna Constitutional: Reports: no symptoms HEENT: Repors: no symptoms Respiratory: Reports: no symptoms Cardiovascular: Reports: no symptoms Gastrointestinal/Abdominal: Reports: no symptoms Genitourinary: Reports: no symptoms Allergies: Coded Allergies: SULFA (SULFONAMIDE ANTIBIOTICS) (Unverified Allergy, Unknown, 09/30/18) COPIED FROM UNCODED Uncoded Allergies: SULFA (Allergy, Unknown, 11/20/18) Objective Last 24 Hour Vital Signs Date Time Temp Pulse Resp B/P (MAP) Pulse Ox O2 Delivery O2 Flow Rate FiO2 11/22/18 08:30 79 24 103/50 (67) 99 11/22/18 08:00 99.1 78 24 99/44 (62) 99 11/22/18 07:30 77 24 98/47 (64) 99 11/22/18 07:00 98/47 11/22/18 07:00 78 24 106/46 (66) 99 11/22/18 06:35 74 20 Nasal Cannula 2.0 28 11/22/18 06:35 Nasal Cannula 2.0 28 11/22/18 06:00 109/53 11/22/18 05:00 86/43 11/22/18 04:38 123/57 11/22/18 04:00 Nasal Cannula 2.0 11/22/18 04:00 75 5/2/19 04:00 123/57 11/22/18 03:00 112/54 11/22/18 02:02 Nasal Cannula 2.0 28 11/22/18 02:01 80 25 Nasal Cannula 2.0 28 11/22/18 02:00 128/74 11/22/18 01:00 121/48 11/22/18 00:00 76 11/22/18 00:00 Nasal Cannula 2.0 11/22/18 00:00 110/47 11/21/18 23:00 95/45 11/21/18 22:00 102/48 11/21/18 21:00 108/47 11/21/18 20:08 71/45 11/21/18 20:00 Nasal Cannula 2.0 11/21/18 20:00 75 11/21/18 18:00 127/57 11/21/18 17:00 98/37 11/21/18 16:00 77 11/21/18 16:00 117/49 11/21/18 16:00 Nasal Cannula 2.0 11/21/18 15:00 107/51 11/21/18 14:00 103/49 11/21/18 13:30 123/58 11/21/18 13:00 106/51 11/21/18 12:00 Nasal Cannula 2.0 11/21/18 12:00 78 11/21/18 12:00 114/51 11/21/18 11:44 106/43 11/21/18 11:00 94/49 11/21/18 10:00 109/45 Intake and Output 11/21/18 11/22/18 19:00 07:00 Intake Total 1712.325 ml 2385.0 ml Output Total 1121 ml Balance 1712.325 ml 1264.0 ml Intake Free Water 120 ml 90 ml IV Total 1232.325 ml 1935.0 ml Tube Feeding 360 ml 360 ml Output Urine Total 1120 ml Stool Total 1 ml # Voids 1200 # Bowel Movements 4 4 General Appearance: no acute distress HEENT: normocephalic Respiratory/Chest: chest wall non-tender, lungs clear Cardiovascular: normal peripheral pulses, normal rate Abdomen: normal bowel sounds, soft, non tender Extremities: no cyanosis Microbiology Date/Time Source Procedure Growth Status 11/20/18 16:45 Blood Blood Culture - Preliminary Staphylococcus Aureus Resulted 11/20/18 16:30 Blood Blood Culture - Preliminary Gram Positive Cocci Resulted 11/20/18 16:47 Nasal Nares - Final Complete 11/20/18 16:47 Nasal Nares - Final Complete 11/20/18 16:50 Urine,Clean Catch Urine Culture - Preliminary Gram Negative Jefry Resulted 11/20/18 18:18 Rectum Received Laboratory Tests 11/22/18 03:45: White Blood Count 16.8H, Red Blood Count 2.26L, Hemoglobin 7.2L, Hematocrit 23.7L, Mean Corpuscular Volume 105H, Mean Corpuscular Hemoglobin 32.0H, Mean Corpuscular Hemoglobin Concent 30.5L, Red Cell Distribution Width 15.7H, Platelet Count 187, Mean Platelet Volume 9.2, Neutrophils (%) (Auto) , Lymphocytes (%) (Auto) , Monocytes (%) (Auto) , Eosinophils (%) (Auto) , Basophils (%) (Auto) , Neutrophils % (Manual) [Pending], Lymphocytes % (Manual) [Pending], Platelet Estimate [Pending], Platelet Morphology [Pending], Sodium Level 154H, Potassium Level 3.7, Chloride Level 120H, Carbon Dioxide Level 22, Anion Gap 12, Blood Urea Nitrogen 55H, Creatinine 2.4H, Estimat Glomerular Filtration Rate , Glucose Level 237H, Calcium Level 7.9L Current Medications Medications (Trade) Dose Ordered Sig/Chandu Route PRN Reason Start Time Stop Time Status Last Admin Dose Admin Albuterol/ Ipratropium (Albuterol/ Ipratropium) 3 ml Q6H PRN HHN Shortness of Breath 11/21/18 07:30 11/26/18 07:29 Chlorhexidine Gluconate (Sue-Hex 2%) 1 applic DAILY@2000 TOPIC 11/21/18 20:00 12/21/18 19:59 11/21/18 20:07 Dextrose 1,000 ml @ 75 mls/hr [id number] IV 11/20/18 19:00 12/20/18 18:59 11/21/18 20:08 Dextrose (Dextrose 50%) 25 ml Q30M PRN IV Hypoglycemia 11/21/18 19:45 12/21/18 19:44 Dextrose (Dextrose 50%) 50 ml Q30M PRN IV Hypoglycemia 11/21/18 19:45 12/21/18 19:44 Heparin Sodium (Porcine) (Heparin 5000 units/ml) 5,000 units EVERY 12 HOURS SUBQ 11/21/18 09:00 12/21/18 08:59 Insulin Aspart (NovoLOG) Q6HR SUBQ 11/21/18 12:00 12/21/18 11:59 11/22/18 06:20 Insulin Detemir (Levemir) 8 units BID SUBQ 11/21/18 19:45 12/21/18 19:44 11/21/18 20:39 Norepinephrine Bitartrate 4 mg/ Dextrose 250 ml @ 0 mls/hr Q24H IV 11/21/18 00:15 12/21/18 00:14 11/22/18 04:38 Pantoprazole (Protonix) 40 mg DAILY IVP 11/21/18 09:00 12/21/18 08:59 11/21/18 10:14 Piperacillin Sod/ Tazobactam Sod 3.375 gm/Sodium Chloride 110 ml @ 27.5 mls/hr Q12H IVPB 11/21/18 04:30 11/28/18 04:29 11/22/18 04:36 Vancomycin HCl (Vanco rx to dose) 1 ea DAILY PRN MISC Per rx protocol 11/21/18 15:00 12/21/18 14:59 Maxim East MD November 22, 2018 09:08
[2018-11-22] MEDS: Pantoprazole Inj IVP SCH (09:30)
[2018-11-22] MEDS: Heparin 5000 units/ml inj SUBQ SCH ×2 (09:33→20:48)
[2018-11-22] MEDS: Levemir Flexpen SUBQ SCH ×2 (09:36→18:10)
--- NOTE | 2018-11-22 09:45 | NUR ---
NURSE NOTES: Dr East at the bedside with patient, updated on patient condition and remaining on Levophed, patient is awake and restless and is combative to care, she remain son 2Lmin nasal cannula with no distress noted and saturating at 99%. she has a weak cough able to clear thick secretions,
--- NOTE | 2018-11-22 11:35 | Diagnostic Imaging Report ---
Indication: Dyspnea Comparison: 11/20/2018 A single view chest radiograph was obtained. Findings: Interval placement of a right jugular central venous catheter noted with the tip projected over the SVC. The heart is mildly enlarged. There is no pneumothorax. The lungs remain clear. IMPRESSION: No acute findings. Right central line in good position
--- NOTE | 2018-11-22 11:45 | NUR ---
*-* INSURANCE *-* CLINICALS HAVE BEEN FAXED TO: AUTH# [id number]* NCM: PETRA P:[phone] EXT [facility] F:[phone] FAX CLINICALS
--- NOTE | 2018-11-22 12:00 | NUR ---
NURSE NOTES: Patient is awake and combative to care, is able to raise arms to prevent suctioning oral cavity, she is attentive to speaking foul language with clear words,
--- NOTE | 2018-11-22 14:30 | NUR ---
NURSE NOTES: Dr. Tse notified regarding patient WBC count increase to 16.8, notified regarding prelimanary blood cultures on the urine and blood cultures. ordered to have blood cultures taken at 0400 on 11/23/18, no further verbal orders given at this time.
--- NOTE | 2018-11-22 14:32 | Cardiology Report ---
APPROVED REPORT EKG Measurement Heart [id number] Sinus tachycardia Otherwise normal ECG
--- NOTE | 2018-11-22 15:41 | Infectious Diseases Prog Note ---
Assessment/Plan Assessment/Plan Full consult dictated: A) 1) sepsis, shock, uti, leukocytosis, lgt 2) chest x-ray negative 3) pmh noted 4) allergies sulfa P) 1) zosyn and vancomycin 2) f/u on cultures, monitor labs 3) check TTE 4) may need RACHAEL 5) d/w Dr. Cuellar Subjective Allergies: Coded Allergies: SULFA (SULFONAMIDE ANTIBIOTICS) (Unverified Allergy, Unknown, 09/30/18) COPIED FROM UNCODED Uncoded Allergies: SULFA (Allergy, Unknown, 11/20/18) Objective Vital Signs Last 24 Hour Vital Signs Date Time Temp Pulse Resp B/P (MAP) Pulse Ox O2 Delivery O2 Flow Rate FiO2 11/22/18 12:30 76 23 84/39 (54) 99 11/22/18 12:00 98.3 82 25 86/52 (63) 100 11/22/18 12:00 Nasal Cannula 2.0 11/22/18 12:00 83 11/22/18 11:30 75 24 86/36 (53) 99 11/22/18 11:30 86/36 11/22/18 11:00 94/42 11/22/18 11:00 77 24 94/42 (59) 99 11/22/18 10:30 77 24 91/43 (59) 99 11/22/18 10:00 80 23 85/29 (47) 99 11/22/18 10:00 96/36 11/22/18 09:30 79 27 99/41 (60) 99 11/22/18 09:00 98/41 11/22/18 09:00 83 24 98/41 (60) 99 11/22/18 08:30 79 24 103/50 (67) 99 11/22/18 08:00 75 11/22/18 08:00 99.1 78 24 99/44 (62) 99 11/22/18 08:00 Nasal Cannula 2.0 11/22/18 08:00 99/44 11/22/18 07:30 77 24 98/47 (64) 99 11/22/18 07:00 98/47 11/22/18 07:00 78 24 106/46 (66) 99 11/22/18 06:35 74 20 Nasal Cannula 2.0 28 11/22/18 06:35 Nasal Cannula 2.0 28 11/22/18 06:00 109/53 11/22/18 05:00 86/43 11/22/18 04:38 123/57 11/22/18 04:00 Nasal Cannula 2.0 11/22/18 04:00 75 11/22/18 04:00 123/57 11/22/18 03:00 112/54 11/22/18 02:02 Nasal Cannula 2.0 28 11/22/18 02:01 80 25 Nasal Cannula 2.0 28 11/22/18 02:00 128/74 11/22/18 01:00 121/48 11/22/18 00:00 76 11/22/18 00:00 Nasal Cannula 2.0 11/22/18 00:00 110/47 11/21/18 23:00 95/45 11/21/18 22:00 102/48 11/21/18 21:00 108/47 11/21/18 20:08 71/45 11/21/18 20:00 Nasal Cannula 2.0 11/21/18 20:00 75 11/21/18 18:00 127/57 11/21/18 17:00 98/37 11/21/18 16:00 77 11/21/18 16:00 117/49 11/21/18 16:00 Nasal Cannula 2.0 Height (Feet): 5 Height (Inches): 4.00 Weight (Pounds): 160 Microbiology Date/Time Source Procedure Growth Status 11/20/18 16:45 Blood Blood Culture - Preliminary Staphylococcus Aureus Resulted 11/20/18 16:30 Blood Blood Culture - Preliminary Gram Positive Cocci Resulted 11/20/18 16:47 Nasal Nares - Final Complete 11/20/18 16:47 Nasal Nares - Final Complete 11/20/18 16:50 Urine,Clean Catch Urine Culture - Preliminary Gram Negative Jefry Resulted 11/20/18 18:18 Rectum Received Laboratory Tests Test 11/22/18 03:45 White Blood Count 16.8 K/UL (4.8-10.8) H Red Blood Count 2.26 M/UL (4.20-5.40) L Hemoglobin 7.2 G/DL (12.0-16.0) L Hematocrit 23.7 % (37.0-47.0) L Mean Corpuscular Volume 105 FL (80-99) H Mean Corpuscular Hemoglobin 32.0 PG (27.0-31.0) H Mean Corpuscular Hemoglobin Concent 30.5 G/DL (32.0-36.0) L Red Cell Distribution Width 15.7 % (11.6-14.8) H Platelet Count 187 K/UL (150-450) Mean Platelet Volume 9.2 FL (6.5-10.1) Neutrophils (%) (Auto) % (45.0-75.0) Lymphocytes (%) (Auto) % (20.0-45.0) Monocytes (%) (Auto) % (1.0-10.0) Eosinophils (%) (Auto) % (0.0-3.0) Basophils (%) (Auto) % (0.0-2.0) Differential Total Cells Counted 100 Neutrophils % (Manual) 69 % (45-75) Lymphocytes % (Manual) 22 % (20-45) Monocytes % (Manual) 8 % (1-10) Eosinophils % (Manual) 1 % (0-3) Basophils % (Manual) 0 % (0-2) Band Neutrophils 0 % (0-8) Nucleated Red Blood Cells 2 /100 WBC Platelet Estimate Adequate Platelet Morphology Normal Polychromasia 1+ Anisocytosis 1+ Macrocytosis 2+ Sodium Level 154 MMOL/L (136-145) H Potassium Level 3.7 MMOL/L (3.5-5.1) Chloride Level 120 MMOL/L (98-107) H Carbon Dioxide Level 22 MMOL/L (21-32) Anion Gap 12 mmol/L (5-15) Blood Urea Nitrogen 55 mg/dL (7-18) H Creatinine 2.4 MG/DL (0.55-1.30) H Estimat Glomerular Filtration Rate mL/min (>60) Glucose Level 237 MG/DL (74-106) H Calcium Level 7.9 MG/DL (8.5-10.1) L Current Medications Medications (Trade) Dose Ordered Sig/Chandu Route PRN Reason Start Time Stop Time Status Last Admin Dose Admin Albuterol/ Ipratropium (Albuterol/ Ipratropium) 3 ml Q6H PRN HHN Shortness of Breath 11/21/18 07:30 11/26/18 07:29 Chlorhexidine Gluconate (Sue-Hex 2%) 1 applic DAILY@1999 TOPIC 11/21/18 20:00 12/21/18 19:59 11/21/18 20:07 Dextrose 1,000 ml @ 75 mls/hr [id number] IV 11/20/18 19:00 12/20/18 18:59 11/22/18 10:02 Dextrose (Dextrose 50%) 25 ml Q30M PRN IV Hypoglycemia 11/21/18 19:45 12/21/18 19:44 Dextrose (Dextrose 50%) 50 ml Q30M PRN IV Hypoglycemia 11/21/18 19:45 12/21/18 19:44 Heparin Sodium (Porcine) (Heparin 5000 units/ml) 5,000 units EVERY 12 HOURS SUBQ 11/21/18 09:00 12/21/18 08:59 11/22/18 09:33 Insulin Aspart (NovoLOG) Q6HR SUBQ 11/21/18 12:00 12/21/18 11:59 11/22/18 13:20 Insulin Detemir (Levemir) 8 units BID SUBQ 11/21/18 19:45 12/21/18 19:44 11/22/18 09:36 Norepinephrine Bitartrate 4 mg/ Dextrose 250 ml @ 0 mls/hr Q24H IV 11/21/18 00:15 12/21/18 00:14 11/22/18 04:38 Pantoprazole (Protonix) 40 mg DAILY IVP 11/21/18 09:00 12/21/18 08:59 11/22/18 09:30 Piperacillin Sod/ Tazobactam Sod 3.375 gm/Sodium Chloride 110 ml @ 27.5 mls/hr Q12H IVPB 11/21/18 04:30 11/28/18 04:29 11/22/18 04:36 Vancomycin HCl (Vanco rx to dose) 1 ea DAILY PRN MISC Per rx protocol 11/21/18 15:00 12/21/18 14:59 Blanca Leigh MD November 22, 2018 15:41
--- NOTE | 2018-11-22 15:52 | NUR ---
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 SEVERE SEPSIS . NAOMY VS: BP 98/42, P 82, T 98.3, RR 25, SpO2 100 on NC 2.0L O2 WBC 16.8, RBC 2.26, H&H 7.2/23.7, Na 154, BUN 55, CR 2.4 IS:LEVEMIR SUBQ HEPARIN SUBQ ZOSYN 110ml IVPB NOREPINEPHRINE 250ml IV D5 x1L IV ICU STATUS
--- NOTE | 2018-11-22 19:17 | NUR ---
HAND-OFF: Report given to DAKOTA Ansari.
--- NOTE | 2018-11-22 19:30 | NUR ---
NURSE NOTES: Received pt in no acute distress. Awake, alert, oriented to self only but, confused, aggressive, combative and resistive to care. No breathing difficulty noted on RA, saturating 97%. NSR on the scope. Afebrile. Pt has a TLC on RIJ; Levophed gtt infuses at 6mcg/min to keep MAP>65; current BP 103/51. Pt has scattered ecchymosis to both hands but otherwise intact. FC in place draining clear yellow urine; GT noted on mid quadrant with GTF of Glucerna 1.2 at 30ml/h. Occlusion alarm on; declogged GT with warm water. Will continue to monitor VS and titrate Levophed to off if able.
[2018-11-22] MEDS: Dyna-Hex 2% Top Sol 2oz TOPIC SCH (20:44)
--- NOTE | 2018-11-22 21:00 | NUR ---
NURSE NOTES: 2 RT's suctioned the pt via NT. Obtained thick pinkish secretions.
--- NOTE | 2018-11-22 22:45 | Consultation ---
DATE OF CONSULTATION: 11/22/2018 INFECTIOUS DISEASE CONSULTATION CONSULTING PHYSICIAN: Blanca Leigh M.D. ATTENDING PHYSICIAN: Maxim East M.D. REFERRING PHYSICIAN: Maxim East M.D. REASON FOR CONSULTATION: Sepsis shock, Staph aureus bacteremia, fevers, leukocytosis, and gram-negative urinary tract infection. CHIEF COMPLAINT: The patient's chief complaint coming in to the hospital is pneumonia. HISTORY OF PRESENT ILLNESS: This is an 83-year-old female, who comes in to [facility], was noted to be febrile and in septic shock. The patient is in the ICU. Workup shows that she has a Staph aureus bacteremia. A TTE will be ordered, I think was ordered. I discussed with Cardiology, Dr. Cuellar. The patient has a gram-negative urinary tract infection and sepsis shock, and also the patient has hypernatremia, leukocytosis, and fevers. Infectious Disease consultation is requested. The patient was started on Zosyn and vancomycin. MAR was noted. Orders were noted. Notes and records were reviewed. The patient is in the intensive care unit. Case discussed with nursing staff. REVIEW OF SYSTEMS: CONSTITUTIONAL: The patient has generalized fatigue. She has a Scales. She is currently on pressors , Levophed, and norepinephrine. She is responsive. HEAD AND NECK: No obvious head pain or neck pain. CARDIAC: No chest pain. She is on pressors. GASTROINTESTINAL: No nausea, vomiting, or diarrhea. GENITOURINARY: She has a Scales. PULMONARY: No significant congestion or shortness of breath. SKIN: No rash. EXTREMITY: No extremity pain. NEUROLOGIC: No seizures. She came in with low-grade fevers. No chills. Denies fatigue and weakness. PAST MEDICAL HISTORY: The patient's past medical history includes the following. The patient has a past medical history of chronic obstructive pulmonary disease. She has history of diastolic congestive heart failure or congestive heart failure. She has history of hypertension. She has history of diabetes mellitus, dementia, chronic encephalopathy, gastroesophageal reflux disease, history of duodenal ulcers, and history of osteoarthritis. She has elevated creatinine. She has history of chronic G-tube also. MEDICATIONS: Upon the MAR, she is on the following medications. She is on chlorhexidine. She is on Levemir. She is on vancomycin, Zosyn, pantoprazole, insulin, heparin, albuterol treatments, and norepinephrine. Outside medications were noted and reconciliated. ALLERGIES: Include sulfa drugs. SOCIAL HISTORY: Negative for smoking, alcohol, or drug abuse. FAMILY HISTORY: Noncontributory. PHYSICAL EXAMINATION: VITAL SIGNS: Temperature is 98.3, pulse rate 76, respiratory rate 23, blood pressure 84/39, and saturation 99%. The patient's respiratory rate has been as high as 27 and T-max 99.5. Pulse rate on admission was 105. GENERAL: Alert and responsive, mostly nonverbal. HEAD AND NECK: Oral exam, no thrush. Eye exam, no icterus. Neck is supple. No JVD. Normocephalic. LUNGS: Clear bilaterally. No rhonchi or rales. HEART: Regular. No obvious gallop or murmur. ABDOMEN: Soft. Positive bowel sounds. Nontender. She has a G-tube. SKIN: No rash. MUSCULOSKELETAL: No effusion. Legs are without cellulitis. PERIPHERAL VASCULAR: No cyanosis. GENITOURINARY: She has a Scales. Urine is cloudy. LINE SITES: Without phlebitis. NEUROLOGIC: Generalized weakness and responsive. She is mostly nonverbal. LABORATORY AND DIAGNOSTIC DATA: Laboratory data is as follows. White count 16.8 and hemoglobin 7.2. Creatinine is 2.4. LFTs noted. Sodium is 162. UA had 3+ leukocyte esterase and too many to count white blood cells. CULTURES: Urine culture with gram-negative rods. Blood culture with Staph aureus. Sensitivities are pending. IMAGING: Chest x-ray was clear x2. No pneumonia. Lungs were clear. ASSESSMENT AND PLAN: 1. The patient has sepsis shock and has Staph aureus bacteremia, gram-negative urinary tract infection, leukocytosis, fevers, and SIRS criteria. At this time, we will continue vancomycin and Zosyn for MRSA and gram-negative coverage and anaerobic coverage. Continue vancomycin and Zosyn for sepsis shock, Staph aureus bacteremia, and gram-negative urinary tract infection. Check final urine culture. Check surveillance blood cultures. Check sensitivities of Staph aureus. Check echo. The patient may need a RACHAEL. Case was discussed with Dr. Cuellar from Cardiology. Continue antibiotics, vancomycin and Zosyn. Check pending final workup. 2. Hypernatremia. 3. Elevated creatinine . 4. Anemia. 5. Diabetes. 6. Hypertension. 7. Dysphagia, G-tube. 8. Blood sugar and blood pressure treatment, diabetes and hypertension per primary. 9. COPD. 10. CHF. 11. Gastroesophageal reflux disease. 12. Peptic ulcer disease. 13. Osteoarthrosis. 14. History of encephalopathy and dementia. 15. Continue treatment per primary consultants for other medical problems. 16. Allergies to sulfa. 17. Social history is negative. 18. Family history is noncontributory. 19. MAR was noted. 20. Case was discussed with RN. 21. Case discussed with Dr. Robert Cuellar. Blanca Leigh M.D. DR: VICTORIA JOB#: [id number] CC:
[2018-11-23] VITALS (47 sets, daily range): BP systolic 89–121; BP diastolic 35–96
--- NOTE | 2018-11-23 | NUR ---
NURSE NOTES: Micro Lab reports +MRSA nares. Contact precautions implemented. Pt's VSS. Still combative, aggressive and uncooperative. Afebrile. Putting out large amts of urine. Levophed gtt continues at 6mcg/min
--- NOTE | 2018-11-23 02:00 | NUR ---
NURSE NOTES: Sleeps on and off. Pt suspicious and uncooperative. BP stable thus far
--- NOTE | 2018-11-23 04:00 | NUR ---
NURSE NOTES: Pt bathed. Oral care done with much resistance. BP 121/56. Levophed gtt titrated down to 5mcg/min. Micro lab reports +ESBL urine. Bld c/s x2 drawn, 1 set from central line; 1 set peripheral
[2018-11-23] MEDS: Zosyn 3.375gm in NS 110ml IVPB SCH ×2 (04:08→17:13)
[2018-11-23 05:06] LABS: HEMATOCRIT 21.2 % (37.0-47.0); MEAN CORPUSCULAR VOLUME 103 FL (80-99); PLATELET COUNT 170 K/UL (150-450); RED BLOOD COUNT 2.07 M/UL (4.20-5.40); RED CELL DISTRIBUTION WIDTH 15.3 % (11.6-14.8); WHITE BLOOD COUNT 13.1 K/UL (4.8-10.8)
[2018-11-23 05:29] LABS: ANION GAP 12 mmol/L (5-15); BLOOD UREA NITROGEN 39 mg/dL (7-18); CALCIUM 8.1 MG/DL (8.5-10.1); CARBON DIOXIDE 24 MMOL/L (21-32); CHLORIDE 117 MMOL/L (98-107); CREATININE 2.2 MG/DL (0.55-1.30); POTASSIUM 3.1 MMOL/L (3.5-5.1); SODIUM 153 MMOL/L (136-145)
--- NOTE | 2018-11-23 05:30 | Progress Note ---
CARDIOLOGY PROGRESS NOTE DATE: 11/22/2018 SUBJECTIVE: The patient is more alert. She is in no respiratory distress. She remains with low range blood pressure and requiring pressors as well as IV fluids. Blood cultures are positive for MRSA. PHYSICAL EXAMINATION: VITAL SIGNS: Blood pressure 90/40, pulse 97, and respirations 26. LUNGS: Diminished breath sounds. Scattered rhonchi. HEART: Regular rhythm and rate. Normal S1, S2. There is a 1/6 systolic murmur at the base. ABDOMEN: Soft. There is no guarding or rebound. EXTREMITIES: There is trace edema. DIAGNOSTIC DATA: Chest x-ray today reveals no acute process. There is a central line in the right IJ region. IMPRESSION: 1. Sepsis, shock. 2. MRSA bacteremia. 3. Positive risk for endocarditis. 4. Severe anemia. 5. Dehydration. 6. Hyponatremia. 7. Acute on chronic renal failure. 8. Lactic acidosis, resolved. PLAN: 1. Continue hypotonic IV fluids. 2. Taper off pressors. 3. Antimicrobials. 4. Echocardiogram. 5. Monitor volume status and cardiorenal function. 6. Monitor electrolytes. 7. Nutrition by feeding tube. Robert Cuellar M.D. DR: GILBERT JOB#: [id number] CC:
--- NOTE | 2018-11-23 05:45 | NUR ---
NURSE NOTES: Lab reports critical value of Hgb=6.7; called to Dr East; order received to transfuse 2 units PRBC's each over 3hrs
[2018-11-23 05:46] LABS: HEMOGLOBIN 6.7 G/DL (12.0-16.0)
[2018-11-23] MEDS ORDERED: Vancomycin 1gm/D5W 275ml IVPB ONE ×2 (06:00)
[2018-11-23] MEDS: NovoLOG Insulin Flexpen SUBQ SCH ×4 (06:05→23:38)
--- NOTE | 2018-11-23 06:20 | General Progress Note ---
Assessment/Plan Problem List: (1) COPD (chronic obstructive pulmonary disease) ICD Codes: J44.9 - Chronic obstructive pulmonary disease, unspecified SNOMED: 94372174 Qualifiers: Qualified Codes: J44.1 - Chronic obstructive pulmonary disease with (acute) exacerbation (2) Severe sepsis ICD Codes: A41.9 - Sepsis, unspecified organism; R65.20 - Severe sepsis without septic shock SNOMED: 68430790 (3) Diabetes ICD Codes: E11.9 - Type 2 diabetes mellitus without complications SNOMED: 73470438 (4) Feeding by G-tube ICD Codes: Z93.1 - Gastrostomy status SNOMED: 089658266, 479619193 (5) Aspiration pneumonia ICD Codes: J69.0 - Pneumonitis due to inhalation of food and vomit SNOMED: 857436138 Assessment/Plan: continue Levemir 8 units bid continue NISS every 6 hours Subjective ROS Limited/Unobtainable: Yes Allergies: Coded Allergies: SULFA (SULFONAMIDE ANTIBIOTICS) (Unverified Allergy, Unknown, 09/30/18) COPIED FROM UNCODED Uncoded Allergies: SULFA (Allergy, Unknown, 11/20/18) Subjective events noted glycemic control improved Item Value Date Time Bedside Blood Glucose 154 mg/dl H 11/23/18 0605 Bedside Blood Glucose 194 mg/dl H 11/23/18 0000 Bedside Blood Glucose 211 mg/dl H 11/22/18 1810 Bedside Blood Glucose 190 mg/dl H 11/22/18 1320 Bedside Blood Glucose 213 mg/dl H 11/22/18 0936 Bedside Blood Glucose 202 mg/dl H 11/22/18 0620 Bedside Blood Glucose 202 mg/dl H 11/22/18 0031 Objective Last 24 Hour Vital Signs Date Time Temp Pulse Resp B/P (MAP) Pulse Ox O2 Delivery O2 Flow Rate FiO2 11/23/18 05:30 99 27 103/68 (80) 97 11/23/18 05:00 92/61 11/23/18 05:00 108 21 92/61 (71) 97 11/23/18 04:30 97 27 121/45 (70) 97 11/23/18 04:11 121/56 11/23/18 04:00 96 11/23/18 04:00 121/56 11/23/18 04:00 Nasal Cannula 2.0 11/23/18 04:00 98.7 96 26 121/56 (77) 98 11/23/18 03:30 95 24 108/54 (72) 98 11/23/18 03:00 95 29 118/96 (103) 98 11/23/18 03:00 108/54 11/23/18 02:30 95 28 100/44 (62) 98 11/23/18 02:00 95 27 97/59 (72) 98 11/23/18 02:00 97/59 11/23/18 01:30 95 29 105/37 (59) 98 11/23/18 01:00 101/43 11/23/18 01:00 95 27 101/43 (62) 98 11/23/18 00:30 95 27 97/44 (61) 98 11/23/18 00:00 Nasal Cannula 2.0 11/23/18 00:00 106/44 11/23/18 00:00 98.8 95 27 106/44 (64) 97 11/23/18 00:00 95 11/22/18 23:30 97 26 90/42 (58) 97 11/22/18 23:00 94/43 11/22/18 23:00 93 26 94/43 (60) 98 11/22/18 22:30 95 26 90/44 (59) 98 11/22/18 22:00 111/45 11/22/18 22:00 96 26 111/45 (67) 97 11/22/18 21:30 101 27 122/37 (65) 98 11/22/18 21:00 91 24 88/47 (61) 97 11/22/18 21:00 106/50 11/22/18 20:30 93 26 106/50 (68) 98 11/22/18 20:00 90 11/22/18 20:00 Nasal Cannula 2.0 11/22/18 20:00 106/58 11/22/18 20:00 98.3 90 27 106/58 (74) 97 11/22/18 19:30 86 24 82/67 (72) 97 11/22/18 19:17 98 Room Air 21 11/22/18 19:17 83 24 Room Air 21 11/22/18 19:17 Room Air 21 11/22/18 19:00 103/51 11/22/18 19:00 86 31 103/51 (68) 97 11/22/18 18:30 88 28 105/48 (67) 97 11/22/18 18:00 98.6 93 27 97/36 (56) 98 11/22/18 18:00 97/36 11/22/18 17:30 92 27 96/31 (52) 99 11/22/18 17:27 105/47 11/22/18 17:00 105/47 11/22/18 17:00 91 27 105/47 (66) 99 11/22/18 16:30 79 25 109/48 (68) 99 11/22/18 16:00 81 28 108/48 (68) 98 11/22/18 16:00 108/48 11/22/18 16:00 81 11/22/18 16:00 Nasal Cannula 2.0 11/22/18 15:30 82 26 98/42 (60) 100 11/22/18 15:00 80 25 97/45 (62) 99 11/22/18 15:00 97/45 11/22/18 14:30 80 26 104/41 (62) 99 11/22/18 14:00 109/41 11/22/18 14:00 80 25 109/41 (63) 99 11/22/18 13:30 79 26 110/46 (67) 99 11/22/18 13:00 80 24 108/53 (71) 99 11/22/18 13:00 108/53 11/22/18 12:30 76 23 84/39 (54) 99 11/22/18 12:00 98.3 82 25 86/52 (63) 100 11/22/18 12:00 Nasal Cannula 2.0 11/22/18 12:00 86/52 11/22/18 12:00 83 11/22/18 11:30 75 24 86/36 (53) 99 11/22/18 11:30 86/36 11/22/18 11:00 94/42 11/22/18 11:00 77 24 94/42 (59) 99 11/22/18 10:30 77 24 91/43 (59) 99 11/22/18 10:00 80 23 85/29 (47) 99 11/22/18 10:00 96/36 11/22/18 09:30 79 27 99/41 (60) 99 11/22/18 09:00 98/41 11/22/18 09:00 83 24 98/41 (60) 99 11/22/18 08:30 79 24 103/50 (67) 99 11/22/18 08:00 75 11/22/18 08:00 99.1 78 24 99/44 (62) 99 11/22/18 08:00 Nasal Cannula 2.0 11/22/18 08:00 99/44 11/22/18 07:30 77 24 98/47 (64) 99 11/22/18 07:00 98/47 11/22/18 07:00 78 24 106/46 (66) 99 11/22/18 06:35 74 20 Nasal Cannula 2.0 28 11/22/18 06:35 Nasal Cannula 2.0 28 Intake and Output 11/22/18 11/23/18 19:00 07:00 Intake Total 1199.25 ml 777.50 ml Output Total 1875 ml 1275 ml Balance -675.75 ml -497.50 ml IV Total 809.25 ml 477.50 ml Tube Feeding 360 ml 300 ml Other 30 ml Output Urine Total 1875 ml 1275 ml # Bowel Movements 3 Laboratory Tests 11/23/18 04:00: White Blood Count 13.1H, Red Blood Count 2.07L, Hemoglobin 6.7*L, Hematocrit 21.2L, Mean Corpuscular Volume 103H, Mean Corpuscular Hemoglobin 32.4H, Mean Corpuscular Hemoglobin Concent 31.6L, Red Cell Distribution Width 15.3H, Platelet Count 170, Mean Platelet Volume 9.7, Neutrophils (%) (Auto) , Lymphocytes (%) (Auto) , Monocytes (%) (Auto) , Eosinophils (%) (Auto) , Basophils (%) (Auto) , Neutrophils % (Manual) [Pending], Lymphocytes % (Manual) [Pending], Sodium Level 153H, Potassium Level 3.1L, Chloride Level 117H, Carbon Dioxide Level 24, Anion Gap 12, Blood Urea Nitrogen 39H, Creatinine 2.2H, Estimat Glomerular Filtration Rate , Glucose Level 156H, Calcium Level 8.1L, Random Vancomycin Level 9.1 Height (Feet): 5 Height (Inches): 4.00 Weight (Pounds): 172 General Appearance: lethargic Neck: normal alignment Cardiovascular: normal rate Respiratory/Chest: decreased breath sounds Abdomen: normal bowel sounds Edema: 1+ Arm (L), 1+ Arm (R), 1+ Leg (L), 1+ Leg (R), 1+ Pedal (L), 1+ Pedal ( R), 1+ Generalized Objective Current Medications Medications (Trade) Dose Ordered Sig/Chandu Route PRN Reason Start Time Stop Time Status Last Admin Dose Admin Albuterol/ Ipratropium (Albuterol/ Ipratropium) 3 ml Q6H PRN HHN Shortness of Breath 11/21/18 07:30 11/26/18 07:29 Chlorhexidine Gluconate (Sue-Hex 2%) 1 applic DAILY@2000 TOPIC 11/21/18 20:00 12/21/18 19:59 11/22/18 20:44 Dextrose (Dextrose 50%) 25 ml Q30M PRN IV Hypoglycemia 11/21/18 19:45 12/21/18 19:44 Dextrose (Dextrose 50%) 50 ml Q30M PRN IV Hypoglycemia 11/21/18 19:45 12/21/18 19:44 Heparin Sodium (Porcine) (Heparin 5000 units/ml) 5,000 units EVERY 12 HOURS SUBQ 11/21/18 09:00 12/21/18 08:59 11/22/18 20:48 Insulin Aspart (NovoLOG) Q6HR SUBQ 11/21/18 12:00 12/21/18 11:59 11/23/18 06:05 Insulin Detemir (Levemir) 8 units BID SUBQ 11/21/18 19:45 12/21/18 19:44 11/22/18 18:10 Norepinephrine Bitartrate 4 mg/ Dextrose 250 ml @ 0 mls/hr Q24H IV 11/21/18 00:15 12/21/18 00:14 11/23/18 04:11 Pantoprazole (Protonix) 40 mg DAILY IVP 11/21/18 09:00 12/21/18 08:59 11/22/18 09:30 Piperacillin Sod/ Tazobactam Sod 3.375 gm/Sodium Chloride 110 ml @ 27.5 mls/hr Q12H IVPB 11/21/18 04:30 11/28/18 04:29 11/23/18 04:08 Vancomycin HCl (Vanco rx to dose) 1 ea DAILY PRN MISC Per rx protocol 11/21/18 15:00 12/21/18 14:59 Vancomycin HCl 1 gm/Dextrose 275 ml @ 183.708 mls/hr ONCE ONCE IVPB 11/23/18 06:00 11/23/18 07:29 Jack Bonilla MD November 23, 2018 06:20
--- NOTE | 2018-11-23 07:10 | NUR ---
NURSE NOTES: Report received from DAKOTA Madsen.Asleep when received.On room air and saturate at 98% with no apparent s/s acute distress.Afebrile and mouth care provided. Abdomen rounded and non tender.On GT feeding Glucerna 1.2 at 30cc.Gt placement intact and patent, no residual noted at this time.HOB elevated to prevent aspiration.Turned and reposition, call light within easy reach.Will continue to monitor.
--- NOTE | 2018-11-23 07:17 | NUR ---
HAND-OFF: Report given to DAKOTA Campbell.
--- NOTE | 2018-11-23 07:26 | Pulmonology Progress Note ---
Assessment/Plan Assessment/Plan IMPRESSION: 1. Sepsis and bacteremia. 2. UTI. 3. COPD. 4. Diabetes mellitus. 5. Chronic G-tube. 6. Dementia. 7. Severe hypernatremia. 8. Acute renal failure. 9. Anemia; likely dilutional; consider GI eval; will transfuse DISCUSSION: 1. Septic shock. Continue broad-spectrum antibiotics. Send urine, sputum, and blood cultures. 2. Decubitus. I will initiate wound care. At this time, no further intervention required. 3. Enteral feedings. I will resume enteral feedings and also continue Protonix. 4. DVT prophylaxis. Continue heparin subcu. 5. Hypernatremia. Continue hypotonic fluid. Appreciate nephrology consult. 6. Diabetes mellitus. Continue insulin sliding scale. Seen by endocrinology. 7. COPD. Continue oxygen. 8. Hypertension. Currently hypotensive on Levophed. 9. Metabolic encephalopathy. The patient is a Full Code. Discussed with nursing staff. The patient has a POLST. I will follow carefully. Maxim East MD Subjective Interval Events: Na 153, Hgb 6.7 Constitutional: Reports: no symptoms HEENT: Repors: no symptoms Respiratory: Reports: no symptoms Cardiovascular: Reports: no symptoms Gastrointestinal/Abdominal: Reports: no symptoms Genitourinary: Reports: no symptoms Neurologic: Reports: no symptoms Allergies: Coded Allergies: SULFA (SULFONAMIDE ANTIBIOTICS) (Unverified Allergy, Unknown, 09/30/18) COPIED FROM UNCODED Uncoded Allergies: SULFA (Allergy, Unknown, 11/20/18) Objective Last 24 Hour Vital Signs Date Time Temp Pulse Resp B/P (MAP) Pulse Ox O2 Delivery O2 Flow Rate FiO2 11/23/18 07:00 101 30 110/45 (66) 98 11/23/18 06:35 98 29 Room Air 21 11/23/18 06:35 Room Air 21 11/23/18 06:35 98 Room Air 21 11/23/18 06:30 98 27 114/41 (65) 97 11/23/18 06:00 97 27 112/41 (64) 97 11/23/18 05:30 99 27 103/68 (80) 97 11/23/18 05:00 92/61 11/23/18 05:00 108 21 92/61 (71) 97 11/23/18 04:30 97 27 121/45 (70) 97 11/23/18 04:11 121/56 11/23/18 04:00 96 11/23/18 04:00 121/56 11/23/18 04:00 Nasal Cannula 2.0 11/23/18 04:00 98.7 96 26 121/56 (77) 98 11/23/18 03:30 95 24 108/54 (72) 98 11/23/18 03:00 95 29 118/96 (103) 98 11/23/18 03:00 108/54 11/23/18 02:30 95 28 100/44 (62) 98 11/23/18 02:00 95 27 97/59 (72) 98 11/23/18 02:00 97/59 11/23/18 01:30 95 29 105/37 (59) 98 11/23/18 01:00 101/43 11/23/18 01:00 95 27 101/43 (62) 98 11/23/18 00:30 95 27 97/44 (61) 98 11/23/18 00:00 Nasal Cannula 2.0 11/23/18 00:00 106/44 11/23/18 00:00 98.8 95 27 106/44 (64) 97 11/23/18 00:00 95 11/22/18 23:30 97 26 90/42 (58) 97 11/22/18 23:00 94/43 11/22/18 23:00 93 26 94/43 (60) 98 11/22/18 22:30 95 26 90/44 (59) 98 11/22/18 22:00 111/45 11/22/18 22:00 96 26 111/45 (67) 97 11/22/18 21:30 101 27 122/37 (65) 98 11/22/18 21:00 91 24 88/47 (61) 97 11/22/18 21:00 106/50 11/22/18 20:30 93 26 106/50 (68) 98 11/22/18 20:00 90 11/22/18 20:00 Nasal Cannula 2.0 11/22/18 20:00 106/58 11/22/18 20:00 98.3 90 27 106/58 (74) 97 11/22/18 19:30 86 24 82/67 (72) 97 11/22/18 19:17 98 Room Air 21 11/22/18 19:17 83 24 Room Air 21 11/22/18 19:17 Room Air 21 11/22/18 19:00 103/51 11/22/18 19:00 86 31 103/51 (68) 97 11/22/18 18:30 88 28 105/48 (67) 97 11/22/18 18:00 98.6 93 27 97/36 (56) 98 11/22/18 18:00 97/36 11/22/18 17:30 92 27 96/31 (52) 99 11/22/18 17:27 105/47 11/22/18 17:00 105/47 11/22/18 17:00 91 27 105/47 (66) 99 11/22/18 16:30 79 25 109/48 (68) 99 11/22/18 16:00 81 28 108/48 (68) 98 11/22/18 16:00 108/48 11/22/18 16:00 81 11/22/18 16:00 Nasal Cannula 2.0 11/22/18 15:30 82 26 98/42 (60) 100 11/22/18 15:00 80 25 97/45 (62) 99 11/22/18 15:00 97/45 11/22/18 14:30 80 26 104/41 (62) 99 11/22/18 14:00 109/41 11/22/18 14:00 80 25 109/41 (63) 99 11/22/18 13:30 79 26 110/46 (67) 99 11/22/18 13:00 80 24 108/53 (71) 99 11/22/18 13:00 108/53 11/22/18 12:30 76 23 84/39 (54) 99 11/22/18 12:00 98.3 82 25 86/52 (63) 100 11/22/18 12:00 Nasal Cannula 2.0 11/22/18 12:00 86/52 11/22/18 12:00 83 11/22/18 11:30 75 24 86/36 (53) 99 11/22/18 11:30 86/36 11/22/18 11:00 94/42 11/22/18 11:00 77 24 94/42 (59) 99 11/22/18 10:30 77 24 91/43 (59) 99 11/22/18 10:00 80 23 85/29 (47) 99 11/22/18 10:00 96/36 11/22/18 09:30 79 27 99/41 (60) 99 11/22/18 09:00 98/41 11/22/18 09:00 83 24 98/41 (60) 99 11/22/18 08:30 79 24 103/50 (67) 99 11/22/18 08:00 75 11/22/18 08:00 99.1 78 24 99/44 (62) 99 11/22/18 08:00 Nasal Cannula 2.0 11/22/18 08:00 99/44 11/22/18 07:30 77 24 98/47 (64) 99 Intake and Output 11/22/18 11/23/18 19:00 07:00 Intake Total 1199.25 ml 837.50 ml Output Total 1875 ml 1675 ml Balance -675.75 ml -837.50 ml IV Total 809.25 ml 477.50 ml Tube Feeding 360 ml 360 ml Other 30 ml Output Urine Total 1875 ml 1675 ml # Bowel Movements 3 General Appearance: no acute distress HEENT: normocephalic Respiratory/Chest: chest wall non-tender, lungs clear Cardiovascular: normal peripheral pulses Abdomen: normal bowel sounds Microbiology Date/Time Source Procedure Growth Status 11/20/18 16:45 Blood Blood Culture - Preliminary Staphylococcus Aureus - Mrsa Staphylococcus Sp Coag Neg Resulted 11/20/18 16:30 Blood Blood Culture - Preliminary Staphylococcus Sp Coag Neg Resulted 11/20/18 18:18 Nasal Nares MRSA Culture - Final Staphylococcus Aureus - Mrsa Complete 11/20/18 16:47 Nasal Nares - Final Complete 11/20/18 16:47 Nasal Nares - Final Complete 11/20/18 16:50 Urine,Clean Catch Urine Culture - Final Escherichia Coli - Esbl#2 Escherichia Coli Complete 11/20/18 18:18 Rectum Received Laboratory Tests 11/23/18 04:00: White Blood Count 13.1H, Red Blood Count 2.07L, Hemoglobin 6.7*L, Hematocrit 21.2L, Mean Corpuscular Volume 103H, Mean Corpuscular Hemoglobin 32.4H, Mean Corpuscular Hemoglobin Concent 31.6L, Red Cell Distribution Width 15.3H, Platelet Count 170, Mean Platelet Volume 9.7, Neutrophils (%) (Auto) , Lymphocytes (%) (Auto) , Monocytes (%) (Auto) , Eosinophils (%) (Auto) , Basophils (%) (Auto) , Neutrophils % (Manual) [Pending], Lymphocytes % (Manual) [Pending], Sodium Level 153H, Potassium Level 3.1L, Chloride Level 117H, Carbon Dioxide Level 24, Anion Gap 12, Blood Urea Nitrogen 39H, Creatinine 2.2H, Estimat Glomerular Filtration Rate , Glucose Level 156H, Calcium Level 8.1L, Random Vancomycin Level 9.1 Current Medications Medications (Trade) Dose Ordered Sig/Chandu Route PRN Reason Start Time Stop Time Status Last Admin Dose Admin Albuterol/ Ipratropium (Albuterol/ Ipratropium) 3 ml Q6H PRN HHN Shortness of Breath 11/21/18 07:30 11/26/18 07:29 Chlorhexidine Gluconate (Sue-Hex 2%) 1 applic DAILY@2000 TOPIC 11/21/18 20:00 12/21/18 19:59 11/22/18 20:44 Dextrose (Dextrose 50%) 25 ml Q30M PRN IV Hypoglycemia 11/21/18 19:45 12/21/18 19:44 Dextrose (Dextrose 50%) 50 ml Q30M PRN IV Hypoglycemia 11/21/18 19:45 12/21/18 19:44 Heparin Sodium (Porcine) (Heparin 5000 units/ml) 5,000 units EVERY 12 HOURS SUBQ 11/21/18 09:00 12/21/18 08:59 11/22/18 20:48 Insulin Aspart (NovoLOG) Q6HR SUBQ 11/21/18 12:00 12/21/18 11:59 11/23/18 06:05 Insulin Detemir (Levemir) 8 units BID SUBQ 11/21/18 19:45 12/21/18 19:44 11/22/18 18:10 Norepinephrine Bitartrate 4 mg/ Dextrose 250 ml @ 0 mls/hr Q24H IV 11/21/18 00:15 12/21/18 00:14 11/23/18 04:11 Pantoprazole (Protonix) 40 mg DAILY IVP 11/21/18 09:00 12/21/18 08:59 11/22/18 09:30 Piperacillin Sod/ Tazobactam Sod 3.375 gm/Sodium Chloride 110 ml @ 27.5 mls/hr Q12H IVPB 11/21/18 04:30 11/28/18 04:29 11/23/18 04:08 Vancomycin HCl (Vanco rx to dose) 1 ea DAILY PRN MISC Per rx protocol 11/21/18 15:00 12/21/18 14:59 Vancomycin HCl 1 gm/Dextrose 275 ml @ 183.708 mls/hr ONCE ONCE IVPB 11/23/18 06:00 11/23/18 07:29 11/23/18 06:37 Maxim East MD November 23, 2018 07:26
--- NOTE | 2018-11-23 07:47 | Nephrology Progress Note ---
Assessment/Plan Assessment/Plan: A/P 1. NAOMY secondary to multifactorial ATN from ischemia/vol depletion and proximal tubule injury from inflammatory cytokines due to sepsis. - Cr and BUN and much improved - continue hydrations 2. Septic shock. Blood and urine Cxs +ve -Broad spectrum antibiotics 3. Severe volume depletion. Na 153. restart IVFs - continue D5W 4. Hypotension secondary to sepsis. Continue Levophed and fluid boluses prn 5. Hypokalemia- will replace today Subjective Date patient seen: November 23, 2018 Time patient seen: 07:44 ROS Limited/Unobtainable: No Allergies: Coded Allergies: SULFA (SULFONAMIDE ANTIBIOTICS) (Unverified Allergy, Unknown, 09/30/18) COPIED FROM UNCODED Uncoded Allergies: SULFA (Allergy, Unknown, 11/20/18) Subjective Patient awake and more verbal today Objective Last 24 Hour Vital Signs Date Time Temp Pulse Resp B/P (MAP) Pulse Ox O2 Delivery O2 Flow Rate FiO2 11/23/18 07:00 101 30 110/45 (66) 98 11/23/18 06:35 98 29 Room Air 21 11/23/18 06:35 Room Air 21 11/23/18 06:35 98 Room Air 21 11/23/18 06:30 98 27 114/41 (65) 97 11/23/18 06:00 97 27 112/41 (64) 97 11/23/18 05:30 99 27 103/68 (80) 97 11/23/18 05:00 92/61 11/23/18 05:00 108 21 92/61 (71) 97 11/23/18 04:30 97 27 121/45 (70) 97 11/23/18 04:11 121/56 11/23/18 04:00 96 11/23/18 04:00 121/56 11/23/18 04:00 Nasal Cannula 2.0 11/23/18 04:00 98.7 96 26 121/56 (77) 98 11/23/18 03:30 95 24 108/54 (72) 98 11/23/18 03:00 95 29 118/96 (103) 98 11/23/18 03:00 108/54 11/23/18 02:30 95 28 100/44 (62) 98 11/23/18 02:00 95 27 97/59 (72) 98 11/23/18 02:00 97/59 11/23/18 01:30 95 29 105/37 (59) 98 11/23/18 01:00 101/43 11/23/18 01:00 95 27 101/43 (62) 98 11/23/18 00:30 95 27 97/44 (61) 98 11/23/18 00:00 Nasal Cannula 2.0 11/23/18 00:00 106/44 11/23/18 00:00 98.8 95 27 106/44 (64) 97 11/23/18 00:00 95 11/22/18 23:30 97 26 90/42 (58) 97 11/22/18 23:00 94/43 11/22/18 23:00 93 26 94/43 (60) 98 11/22/18 22:30 95 26 90/44 (59) 98 11/22/18 22:00 111/45 11/22/18 22:00 96 26 111/45 (67) 97 11/22/18 21:30 101 27 122/37 (65) 98 11/22/18 21:00 91 24 88/47 (61) 97 11/22/18 21:00 106/50 11/22/18 20:30 93 26 106/50 (68) 98 11/22/18 20:00 90 11/22/18 20:00 Nasal Cannula 2.0 11/22/18 20:00 106/58 11/22/18 20:00 98.3 90 27 106/58 (74) 97 11/22/18 19:30 86 24 82/67 (72) 97 11/22/18 19:17 98 Room Air 21 11/22/18 19:17 83 24 Room Air 21 11/22/18 19:17 Room Air 21 11/22/18 19:00 103/51 11/22/18 19:00 86 31 103/51 (68) 97 11/22/18 18:30 88 28 105/48 (67) 97 11/22/18 18:00 98.6 93 27 97/36 (56) 98 11/22/18 18:00 97/36 11/22/18 17:30 92 27 96/31 (52) 99 11/22/18 17:27 105/47 11/22/18 17:00 105/47 11/22/18 17:00 91 27 105/47 (66) 99 11/22/18 16:30 79 25 109/48 (68) 99 11/22/18 16:00 81 28 108/48 (68) 98 11/22/18 16:00 108/48 11/22/18 16:00 81 11/22/18 16:00 Nasal Cannula 2.0 11/22/18 15:30 82 26 98/42 (60) 100 11/22/18 15:00 80 25 97/45 (62) 99 11/22/18 15:00 97/45 11/22/18 14:30 80 26 104/41 (62) 99 11/22/18 14:00 109/41 11/22/18 14:00 80 25 109/41 (63) 99 11/22/18 13:30 79 26 110/46 (67) 99 11/22/18 13:00 80 24 108/53 (71) 99 11/22/18 13:00 108/53 11/22/18 12:30 76 23 84/39 (54) 99 11/22/18 12:00 98.3 82 25 86/52 (63) 100 11/22/18 12:00 Nasal Cannula 2.0 11/22/18 12:00 86/52 11/22/18 12:00 83 11/22/18 11:30 75 24 86/36 (53) 99 11/22/18 11:30 86/36 11/22/18 11:00 94/42 11/22/18 11:00 77 24 94/42 (59) 99 11/22/18 10:30 77 24 91/43 (59) 99 11/22/18 10:00 80 23 85/29 (47) 99 11/22/18 10:00 96/36 11/22/18 09:30 79 27 99/41 (60) 99 11/22/18 09:00 98/41 11/22/18 09:00 83 24 98/41 (60) 99 11/22/18 08:30 79 24 103/50 (67) 99 11/22/18 08:00 75 11/22/18 08:00 99.1 78 24 99/44 (62) 99 11/22/18 08:00 Nasal Cannula 2.0 5/2/19 08:00 99/44 Intake and Output 11/22/18 11/23/18 19:00 07:00 Intake Total 1199.25 ml 837.50 ml Output Total 1875 ml 1675 ml Balance -675.75 ml -837.50 ml IV Total 809.25 ml 477.50 ml Tube Feeding 360 ml 360 ml Other 30 ml Output Urine Total 1875 ml 1675 ml # Bowel Movements 3 Laboratory Tests 11/23/18 04:00: White Blood Count 13.1H, Red Blood Count 2.07L, Hemoglobin 6.7*L, Hematocrit 21.2L, Mean Corpuscular Volume 103H, Mean Corpuscular Hemoglobin 32.4H, Mean Corpuscular Hemoglobin Concent 31.6L, Red Cell Distribution Width 15.3H, Platelet Count 170, Mean Platelet Volume 9.7, Neutrophils (%) (Auto) , Lymphocytes (%) (Auto) , Monocytes (%) (Auto) , Eosinophils (%) (Auto) , Basophils (%) (Auto) , Neutrophils % (Manual) [Pending], Lymphocytes % (Manual) [Pending], Sodium Level 153H, Potassium Level 3.1L, Chloride Level 117H, Carbon Dioxide Level 24, Anion Gap 12, Blood Urea Nitrogen 39H, Creatinine 2.2H, Estimat Glomerular Filtration Rate , Glucose Level 156H, Calcium Level 8.1L, Random Vancomycin Level 9.1 Height (Feet): 5 Height (Inches): 4.00 Weight (Pounds): 172 General Appearance: confused EENT: normal ENT inspection Neck: normal alignment, supple Cardiovascular: normal rate, regular rhythm Respiratory/Chest: lungs clear, normal breath sounds Abdomen: non tender, soft Edema: no edema noted Arm (L), no edema noted Arm (R), no edema noted Leg (L), no edema noted Leg (R), no edema noted Pedal (L), no edema noted Pedal (R), no edema noted Generalized Jakub García MD November 23, 2018 07:47
--- NOTE | 2018-11-23 07:52 | NUR ---
NURSE NOTES: Seen by Dr East,will follow up with new orders
--- NOTE | 2018-11-23 08:00 | NUR ---
NURSE NOTES: Patient turned and repositioned.Mouth care done,HOB elevated at 35 degree to prevent aspiration.Seen by Dr García,will follow up with new orders Addendum: 11/23/18 at 1826 by Shannan Saab RN Emergency consent given by Dr García with 2 RN witness. Patient non verbal and no close relative.
[2018-11-23] MEDS: Pantoprazole Inj IVP SCH (08:53)
[2018-11-23] MEDS: Levemir Flexpen SUBQ SCH ×2 (09:08→17:18)
[2018-11-23] MEDS: Heparin 5000 units/ml inj SUBQ SCH ×2 (09:10→21:00)
[2018-11-23] MEDS: D5W w/KCl 20mEq 1,000 ML IV SCH ×2 (09:11→23:36)
--- NOTE | 2018-11-23 10:02 | NUR ---
NURSE NOTES: Patient turned and repositioned.HOB elevated to prevent aspiration.Call light within easy reach
--- NOTE | 2018-11-23 11:40 | NUR ---
NURSE NOTES: First unit PRBC started , no ADR reaction noted.Will continue to monitor
--- NOTE | 2018-11-23 12:05 | NUR ---
NURSE NOTES: Patient asleep,no apparent acute distress.Kept clean and dry.Call light within easy reach
--- NOTE | 2018-11-23 12:49 | NUR ---
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 SEVERE SEPSIS . NAOMY VS: BP 102/57, P 100, T 98.0, RR 25, SpO2 100 on NC 2.0L O2 WBC 13.1, RBC 2.07, H&H 6.7/21.2, Na 153, BUN 39, CR 2.2 CXR: Interval placement of a right jugular central venous catheter noted with the tip projected over the SVC. IS: POTASSIUM 100ml IVPB VANCOMYCIN 275ml IVPB NOVOLOG SUBQ HEPARIN SUBQ ZOSYN 110ml IVPB NOREPINEPHRINE 250ml IV D5/ELECTROLYTES x1L IV ICU STATUS
--- NOTE | 2018-11-23 13:43 | NUR ---
*-* INSURANCE *-* CLINICALS AND REVIEWS HAVE BEEN FAXED TO: AUTH# [id number]* NCM: PETRA [phone] EXT [id number] F:[phone] FAX CLINICALS
--- NOTE | 2018-11-23 14:10 | NUR ---
NURSE NOTES: Second unit PRBC started , no ADR .Turned and repositioned.Call light within easy reach
--- NOTE | 2018-11-23 15:07 | Cardiology Report ---
APPROVED REPORT EXAM: Two-dimensional and M-mode echocardiogram with Doppler and color Doppler. INDICATION Endocarditis M-Mode DIMENSIONS IVSd1.3 (0.7-1.1cm)Left Atrium (MM)2.9 (1.6-4.0cm) LVDd4.1 (3.5-5.6cm)Aortic Root2.4 (2.0-3.7cm) PWd1.2 (0.7-1.1cm)Aortic Cusp Exc.1.5 (1.5-2.0cm) LVDs2.7 (2.5-4.0cm) PWs1.6 cm Technically difficult and limited study due to poor acoustic windows and patients resistance. Study quality precludes accurate assessment of regional wall motion. Normal left ventricular chamber size, systolic function and wall motion. Left ventricular ejection fraction estimated to be 65%. Mild left ventricular hypertrophy. Anterior Echo-free space, may be due to pericardial fat or effusion. All other cardiac chamber sizes are within normal limits. Focal aortic valve sclerosis with adequate cusp excursion. Thickened mitral valve leaflets with normal excursion. Mild mitral annulus and aortic root calcification. Pulmonic valve notl visualized. Normal tricuspid valve structure. IVC is normal in size with physiological collapse. A color flow and spectral Doppler study was performed and revealed: No aortic insufficiency. No mitral regurgitation. Mitral diastolic velocities suggest mild left ventricular diastolic dysfunction (Grade I). Trace tricuspid regurgitation. Tricuspid systolic velocities suggests peak right ventricular systolic pressure of 13 mmHg.
--- NOTE | 2018-11-23 16:00 | NUR ---
NURSE NOTES: ADls done, mouth care provided. Turned and repositioned.Kept clean dry and comfortable
--- NOTE | 2018-11-23 17:46 | NUR ---
NURSE NOTES: Blood transfusion completed, no ADR noted at this time
--- NOTE | 2018-11-23 18:05 | NUR ---
NURSE NOTES: ADls done,turned and repositioned.HOB elevated to prevent aspiration.Kept clean and dry
--- NOTE | 2018-11-23 19:10 | NUR ---
HAND-OFF: Report given to DAKOTA Madsen.
--- NOTE | 2018-11-23 19:30 | NUR ---
NURSE NOTES: Received pt in no acute distress. Awake, alert, still uncooperative and resistive to care. Speech slightly garbled, confused. Denies pain, denies SOB. On RA, saturating 100%; coughs productively but unable to expectorate sputum; oral care and suctioning done but obtained mainly thin, frothy saliva. RIJ TLC intact still with Levophed gtt infusing at 1mcg/min to keep MAP>65; current BP 106/65. GT patent; GTF with Glucerna 1.2 continues at 30ml/h with 0 residuals. NSR; temp 99 axillary. Will continue to monitor VS josee BP and titrate Levophed to off if able.
[2018-11-23] MEDS: Dyna-Hex 2% Top Sol 2oz TOPIC SCH (20:10)
--- NOTE | 2018-11-23 21:00 | NUR ---
NURSE NOTES: Noted urine color to be blood tinged but no clots. No other signs of bleeding noted. Heparin dose held. Will continue to monitor.
--- NOTE | 2018-11-23 23:00 | NUR ---
NURSE NOTES: Urine color pale yellow, large amts. Levophed gtt maintained at 1mcg/min. Tolerating current feeding rate.
[2018-11-24] VITALS (28 sets, daily range): BP systolic 97–124; BP diastolic 43–83
--- NOTE | 2018-11-24 | NUR ---
NURSE NOTES: Chest sounds with scattered rhonchi. Pt coughing productively but unable to expectorate. RT suctioned via NT, obtained thin, white frothy sputum. Oral care and suctioning done. Pt still resistive to care. Temp 99.2 axillary. Urine clearing.
--- NOTE | 2018-11-24 02:00 | NUR ---
NURSE NOTES: BP 118/49 on 1mcg/min of Levophed. Pt sleeps on and off. Will attempt to titrate Levophed to off in 2hrs if BP maintains >9systolic or MAP>65
--- NOTE | 2018-11-24 03:30 | Progress Note ---
DATE: 11/23/2018 CARDIOLOGY PROGRESS NOTE SUBJECTIVE: The patient is awake, more alert, remaining on IV antimicrobials. Echocardiogram was done today, study was reviewed, very low likelihood for valvular pathology seen. OBJECTIVE: VITAL SIGNS: Blood pressure 110/45, pulse 101, respirations 30, and afebrile. LUNGS: Bilateral breath sounds. Diminished at bases. HEART: Regular rhythm and rate. Normal S1, S2 with no murmur. ABDOMEN: Obese and soft. EXTREMITIES: With trace dependent edema. LABORATORY DATA: Blood culture, MRSA. Urine culture, E. coli ESBL. White count 13, hemoglobin 6.7. Sodium 153, potassium 3.1, bicarb 24, BUN 39, and creatinine 2.2. IMPRESSION: 1. Sepsis with shock. 2. Severe anemia likely dilutional. 3. Dehydration. 4. Hypernatremia. 5. Hyperchloremia. 6. Hypokalemia. 7. Acute on chronic renal failure. 8. Type 2 diabetes mellitus. 9. Resolved lactic acidosis. 10. Severe protein-calorie malnutrition. 11. Metabolic and toxic encephalopathies. 12. No echocardiographic criteria to suggest endocarditis at this time. RECOMMENDATIONS: 1. Electrolyte replacement. 2. Intravenous fluids with hypotonic saline. 3. Antimicrobials per Infectious Disease industrial methods consultant. 4. Consider transesophageal echocardiogram should there be persistent bacteremia noted. 5. Respiratory hygiene. 6. DVT prophylaxis. Robert Cuellar M.D. DR: JACQUELINE JOB#: [id number] CC:
--- NOTE | 2018-11-24 04:00 | NUR ---
NURSE NOTES: Had 1 large greenish soft stool. Complete bed bath done. Skin on buttocks/sacral area intact. GT site dressing clean, dry and intact. Right IJ TLC dressing clean, dry and intact. BP 111/61; turned Levophed gtt to off. Will continue to monitor
[2018-11-24] MEDS: Zosyn 3.375gm in NS 110ml IVPB SCH (04:19)
[2018-11-24] MEDS: NovoLOG Insulin Flexpen SUBQ SCH ×3 (05:54→17:36)
--- NOTE | 2018-11-24 06:00 | NUR ---
NURSE NOTES: Calm when not approached and touched. Levophed remains on hold. BP101/43. No distress.
[2018-11-24 06:20] LABS: ANION GAP 12 mmol/L (5-15); BLOOD UREA NITROGEN 25 mg/dL (7-18); CALCIUM 8.3 MG/DL (8.5-10.1); CARBON DIOXIDE 23 MMOL/L (21-32); CHLORIDE 114 MMOL/L (98-107); CREATININE 1.9 MG/DL (0.55-1.30); POTASSIUM 3.5 MMOL/L (3.5-5.1); SODIUM 148 MMOL/L (136-145)
[2018-11-24 06:34] LABS: BASOPHILS % (AUTO) 0.5 % (0.0-2.0); EOSINOPHILS % (AUTO) 1.2 % (0.0-3.0); HEMATOCRIT 29.7 % (37.0-47.0); HEMOGLOBIN 9.5 G/DL (12.0-16.0); LYMPHOCYTES % (AUTO) 18.8 % (20.0-45.0); MEAN CORPUSCULAR VOLUME 94 FL (80-99); MONOCYTES % (AUTO) 7.2 % (1.0-10.0); NEUTROPHILS % (AUTO) 72.2 % (45.0-75.0); PLATELET COUNT 131 K/UL (150-450); RED BLOOD COUNT 3.15 M/UL (4.20-5.40); RED CELL DISTRIBUTION WIDTH 18.7 % (11.6-14.8); WHITE BLOOD COUNT 10.5 K/UL (4.8-10.8)
--- NOTE | 2018-11-24 07:00 | NUR ---
NURSE NOTES: Report received from DAKOTA Madsen
--- NOTE | 2018-11-24 07:08 | NUR ---
HAND-OFF: Report given to Shannan DUNCAN.
--- NOTE | 2018-11-24 07:30 | General Progress Note ---
Assessment/Plan Problem List: (1) COPD (chronic obstructive pulmonary disease) ICD Codes: J44.9 - Chronic obstructive pulmonary disease, unspecified SNOMED: 51131746 Qualifiers: Qualified Codes: J44.1 - Chronic obstructive pulmonary disease with (acute) exacerbation (2) Severe sepsis ICD Codes: A41.9 - Sepsis, unspecified organism; R65.20 - Severe sepsis without septic shock SNOMED: 25897859 (3) Diabetes ICD Codes: E11.9 - Type 2 diabetes mellitus without complications SNOMED: 76382685 (4) Feeding by G-tube ICD Codes: Z93.1 - Gastrostomy status SNOMED: 339001941, 808115188 (5) Aspiration pneumonia ICD Codes: J69.0 - Pneumonitis due to inhalation of food and vomit SNOMED: 391866584 Assessment/Plan: continue Levemir 8 units bid continue NISS every 6 hours Subjective ROS Limited/Unobtainable: Yes Allergies: Coded Allergies: SULFA (SULFONAMIDE ANTIBIOTICS) (Unverified Allergy, Unknown, 09/30/18) COPIED FROM UNCODED Uncoded Allergies: SULFA (Allergy, Unknown, 11/20/18) Subjective events noted glucose values are stable Na improved Item Value Date Time Bedside Blood Glucose 130 mg/dl H 11/24/18 0600 Bedside Blood Glucose 160 mg/dl H 11/24/18 0000 Bedside Blood Glucose 171 mg/dl H 11/23/18 1800 Bedside Blood Glucose 197 mg/dl H 11/23/18 1220 Bedside Blood Glucose 191 mg/dl H 11/23/18 0908 Bedside Blood Glucose 154 mg/dl H 11/23/18 0605 Objective Last 24 Hour Vital Signs Date Time Temp Pulse Resp B/P (MAP) Pulse Ox O2 Delivery O2 Flow Rate FiO2 11/24/18 07:00 97 23 119/57 (77) 98 11/24/18 06:00 94 25 102/56 (71) 98 11/24/18 05:00 91 25 115/47 (69) 98 11/24/18 05:00 115/47 11/24/18 04:30 90 24 111/61 (78) 98 11/24/18 04:00 99.1 104 22 98/83 (88) 93 11/24/18 04:00 104 11/24/18 04:00 98/83 11/24/18 04:00 Nasal Cannula 2.0 11/24/18 03:30 88 23 114/47 (69) 98 11/24/18 03:00 114/47 11/24/18 03:00 88 24 108/50 (69) 98 11/24/18 02:30 90 25 124/61 (82) 98 11/24/18 02:00 118/49 11/24/18 02:00 89 24 118/49 (72) 99 11/24/18 01:30 90 25 102/55 (71) 98 11/24/18 01:00 89 23 107/52 (70) 98 11/24/18 01:00 107/52 11/24/18 00:30 91 27 102/71 (81) 98 11/24/18 00:00 Nasal Cannula 2.0 11/24/18 00:00 97 11/24/18 00:00 97/64 11/24/18 00:00 99.2 97 22 97/64 (75) 99 11/23/18 23:40 90/67 11/23/18 23:30 89 21 90/67 (75) 99 11/23/18 23:00 119/51 11/23/18 23:00 90 23 119/51 (73) 98 11/23/18 22:30 90 25 111/49 (69) 98 11/23/18 22:00 91 25 108/47 (67) 98 11/23/18 22:00 108/47 11/23/18 21:30 92 25 103/54 (70) 99 11/23/18 21:00 94 26 89/59 (69) 99 11/23/18 21:00 89/59 11/23/18 20:30 94 26 99/54 (69) 99 11/23/18 20:00 99.0 99 21 116/67 (83) 99 11/23/18 20:00 Nasal Cannula 2.0 11/23/18 20:00 99 11/23/18 20:00 116/67 11/23/18 19:30 91 25 106/65 (79) 99 11/23/18 19:07 Room Air 21 11/23/18 19:07 92 24 Room Air 21 11/23/18 19:07 99 Room Air 21 11/23/18 19:00 93 28 103/39 (60) 99 11/23/18 18:30 93 28 105/35 (58) 99 11/23/18 18:00 88 24 116/46 (69) 100 11/23/18 17:30 87 22 105/42 (63) 100 11/23/18 17:00 89 19 102/48 (66) 98 11/23/18 16:30 92 19 100/48 (65) 94 11/23/18 16:00 Nasal Cannula 2.0 11/23/18 16:00 91 11/23/18 16:00 97.8 91 28 106/63 (77) 100 11/23/18 15:30 92 26 99/46 (63) 99 11/23/18 14:30 92 24 110/42 (64) 99 11/23/18 14:00 91 27 109/47 (67) 99 11/23/18 13:30 91 29 118/50 (72) 99 11/23/18 13:00 95 33 111/44 (66) 99 11/23/18 12:30 100 24 118/95 (103) 95 11/23/18 12:00 96 11/23/18 12:00 98.0 91 28 108/42 (64) 100 11/23/18 12:00 Nasal Cannula 2.0 11/23/18 11:30 100 27 102/57 (72) 97 11/23/18 11:00 99 29 105/50 (68) 97 11/23/18 10:30 100 26 103/39 (60) 97 11/23/18 10:00 100 26 103/42 (62) 97 11/23/18 09:30 100 25 103/42 (62) 97 11/23/18 09:00 100 26 100/43 (62) 95 11/23/18 08:30 100 26 100/43 (62) 96 11/23/18 08:00 Nasal Cannula 2.0 11/23/18 08:00 99 11/23/18 08:00 98.8 102 26 112/41 (64) 95 11/23/18 07:30 97 20 115/41 (65) 92 Intake and Output 11/23/18 11/24/18 19:00 07:00 Intake Total 2165.00 ml 1431.25 ml Output Total 2140 ml 1625 ml Balance 25.00 ml -193.75 ml Intake Free Water 120 ml IV Total 1185.00 ml 1071.25 ml Tube Feeding 360 ml 360 ml Blood Product 500 ml Output Urine Total 2140 ml 1625 ml # Bowel Movements 1 4 Laboratory Tests 11/24/18 05:00: White Blood Count 10.5, Red Blood Count 3.15L, Hemoglobin 9.5#L, Hematocrit 29.7 #L, Mean Corpuscular Volume 94#, Mean Corpuscular Hemoglobin 30.1, Mean Corpuscular Hemoglobin Concent 31.9L, Red Cell Distribution Width 18.7H, Platelet Count 131L, Mean Platelet Volume 10.1, Neutrophils (%) (Auto) 72.2, Lymphocytes (%) (Auto) 18.8L, Monocytes (%) (Auto) 7.2, Eosinophils (%) (Auto) 1.2, Basophils (%) (Auto) 0.5, Sodium Level 148H, Potassium Level 3.5, Chloride Level 114H, Carbon Dioxide Level 23, Anion Gap 12, Blood Urea Nitrogen 25H, Creatinine 1.9H, Estimat Glomerular Filtration Rate , Glucose Level 131H, Calcium Level 8.3L 11/24/18 05:20: Random Vancomycin Level 15.0 Height (Feet): 5 Height (Inches): 4.00 Weight (Pounds): 174 General Appearance: lethargic Neck: normal alignment Cardiovascular: normal rate Respiratory/Chest: decreased breath sounds Abdomen: normal bowel sounds Pelvis: normal external exam Objective Current Medications Medications (Trade) Dose Ordered Sig/Chandu Route PRN Reason Start Time Stop Time Status Last Admin Dose Admin Albuterol/ Ipratropium (Albuterol/ Ipratropium) 3 ml Q6H PRN HHN Shortness of Breath 11/21/18 07:30 11/26/18 07:29 Chlorhexidine Gluconate (Sue-Hex 2%) 1 applic DAILY@2000 TOPIC 11/21/18 20:00 12/21/18 19:59 11/23/18 20:10 Dextrose (Dextrose 50%) 25 ml Q30M PRN IV Hypoglycemia 11/21/18 19:45 12/21/18 19:44 Dextrose (Dextrose 50%) 50 ml Q30M PRN IV Hypoglycemia 11/21/18 19:45 12/21/18 19:44 Dextrose/ Electrolytes 1,000 ml @ 75 mls/hr [id number] IV 11/23/18 09:00 12/23/18 08:59 11/23/18 23:36 Heparin Sodium (Porcine) (Heparin 5000 units/ml) 5,000 units EVERY 12 HOURS SUBQ 11/21/18 09:00 12/21/18 08:59 11/23/18 09:10 Insulin Aspart (NovoLOG) Q6HR SUBQ 11/21/18 12:00 12/21/18 11:59 11/24/18 05:54 Insulin Detemir (Levemir) 8 units BID SUBQ 11/21/18 19:45 12/21/18 19:44 11/23/18 17:18 Norepinephrine Bitartrate 4 mg/ Dextrose 250 ml @ 0 mls/hr Q24H IV 11/21/18 00:15 12/21/18 00:14 11/23/18 23:40 Pantoprazole (Protonix) 40 mg DAILY IVP 11/21/18 09:00 12/21/18 08:59 11/23/18 08:53 Piperacillin Sod/ Tazobactam Sod 3.375 gm/Sodium Chloride 110 ml @ 27.5 mls/hr EVERY 8 HOURS IVPB 11/24/18 14:00 11/29/18 13:59 Piperacillin Sod/ Tazobactam Sod 3.375 gm/Sodium Chloride 110 ml @ 27.5 mls/hr Q12H IVPB 11/21/18 04:30 11/24/18 13:59 11/24/18 04:19 Vancomycin HCl (Vanco rx to dose) 1 ea DAILY PRN MISC Per rx protocol 11/21/18 15:00 12/21/18 14:59 Vancomycin HCl/ Dextrose 275 ml @ 183.333 mls/hr NOW ONCE IVPB 11/24/18 08:00 11/24/18 09:29 Jack Bonilla MD November 24, 2018 07:30
--- NOTE | 2018-11-24 07:53 | NUR ---
NURSE NOTES: Awake when received.On room air and saturate at 98% with no apparent s/s acute distress.Afebrile and mouth care provided. Noted with large amount secretion frothy and white.Abdomen round and non tender.Gt placement intact and patent, no residual noted at this time.HOB elevated to prevent aspiration.Turned and reposition, call light within easy reach.Will continue to monitor.
[2018-11-24] MEDS ORDERED: Vancomycin 1.25gm Premix IVPB ONE (08:00)
[2018-11-24] MEDS: Pantoprazole Inj IVP SCH (08:22)
[2018-11-24] MEDS: Levemir Flexpen SUBQ SCH ×2 (08:23→17:35)
[2018-11-24] MEDS: Heparin 5000 units/ml inj SUBQ SCH ×2 (08:27→20:26)
--- NOTE | 2018-11-24 10:01 | Nephrology Progress Note ---
Assessment/Plan Assessment/Plan: A/P 1. NAOMY secondary to multifactorial ATN from ischemia/vol depletion and proximal tubule injury from inflammatory cytokines due to sepsis. - Cr and BUN much improved 2. Septic shock. Blood and urine Cxs +ve -Broad spectrum antibiotics per ID 3. Severe volume depletion. Na 148. - continue D5W 4. Hypotension secondary to sepsis. Off Levophed. Tx to SDU 5. Hypokalemia- will replace prn basis Subjective Date patient seen: November 24, 2018 Time patient seen: 09:59 ROS Limited/Unobtainable: Yes Allergies: Coded Allergies: SULFA (SULFONAMIDE ANTIBIOTICS) (Unverified Allergy, Unknown, 09/30/18) COPIED FROM UNCODED Uncoded Allergies: SULFA (Allergy, Unknown, 11/20/18) Subjective Patient off pressors and in no overt distress Objective Last 24 Hour Vital Signs Date Time Temp Pulse Resp B/P (MAP) Pulse Ox O2 Delivery O2 Flow Rate FiO2 11/24/18 09:00 98 23 109/59 (76) 97 11/24/18 08:00 99.2 95 22 100/61 (74) 97 11/24/18 08:00 Nasal Cannula 2.0 11/24/18 07:00 97 23 119/57 (77) 98 11/24/18 06:00 94 25 102/56 (71) 98 11/24/18 05:00 91 25 115/47 (69) 98 11/24/18 05:00 115/47 11/24/18 04:30 90 24 111/61 (78) 98 11/24/18 04:00 99.1 104 22 98/83 (88) 93 11/24/18 04:00 104 11/24/18 04:00 98/83 11/24/18 04:00 Nasal Cannula 2.0 11/24/18 03:30 88 23 114/47 (69) 98 11/24/18 03:00 114/47 11/24/18 03:00 88 24 108/50 (69) 98 11/24/18 02:30 90 25 124/61 (82) 98 11/24/18 02:00 118/49 11/24/18 02:00 89 24 118/49 (72) 99 11/24/18 01:30 90 25 102/55 (71) 98 11/24/18 01:00 89 23 107/52 (70) 98 11/24/18 01:00 107/52 11/24/18 00:30 91 27 102/71 (81) 98 11/24/18 00:00 Nasal Cannula 2.0 11/24/18 00:00 97 11/24/18 00:00 97/64 11/24/18 00:00 99.2 97 22 97/64 (75) 99 11/23/18 23:40 90/67 11/23/18 23:30 89 21 90/67 (75) 99 11/23/18 23:00 119/51 11/23/18 23:00 90 23 119/51 (73) 98 11/23/18 22:30 90 25 111/49 (69) 98 11/23/18 22:00 91 25 108/47 (67) 98 11/23/18 22:00 108/47 11/23/18 21:30 92 25 103/54 (70) 99 11/23/18 21:00 94 26 89/59 (69) 99 11/23/18 21:00 89/59 11/23/18 20:30 94 26 99/54 (69) 99 11/23/18 20:00 99.0 99 21 116/67 (83) 99 11/23/18 20:00 Nasal Cannula 2.0 11/23/18 20:00 99 11/23/18 20:00 116/67 11/23/18 19:30 91 25 106/65 (79) 99 11/23/18 19:07 Room Air 21 11/23/18 19:07 92 24 Room Air 21 11/23/18 19:07 99 Room Air 21 11/23/18 19:00 93 28 103/39 (60) 99 11/23/18 18:30 93 28 105/35 (58) 99 11/23/18 18:00 88 24 116/46 (69) 100 11/23/18 17:30 87 22 105/42 (63) 100 11/23/18 17:00 89 19 102/48 (66) 98 11/23/18 16:30 92 19 100/48 (65) 94 11/23/18 16:00 Nasal Cannula 2.0 11/23/18 16:00 91 11/23/18 16:00 97.8 91 28 106/63 (77) 100 11/23/18 15:30 92 26 99/46 (63) 99 11/23/18 14:30 92 24 110/42 (64) 99 11/23/18 14:00 91 27 109/47 (67) 99 11/23/18 13:30 91 29 118/50 (72) 99 11/23/18 13:00 95 33 111/44 (66) 99 11/23/18 12:30 100 24 118/95 (103) 95 11/23/18 12:00 96 11/23/18 12:00 98.0 91 28 108/42 (64) 100 11/23/18 12:00 Nasal Cannula 2.0 11/23/18 11:30 100 27 102/57 (72) 97 11/23/18 11:00 99 29 105/50 (68) 97 11/23/18 10:30 100 26 103/39 (60) 97 11/23/18 10:00 100 26 103/42 (62) 97 Intake and Output 11/23/18 11/24/18 19:00 07:00 Intake Total 2165.00 ml 1431.25 ml Output Total 2140 ml 1625 ml Balance 25.00 ml -193.75 ml Intake Free Water 120 ml IV Total 1185.00 ml 1071.25 ml Tube Feeding 360 ml 360 ml Blood Product 500 ml Output Urine Total 2140 ml 1625 ml # Bowel Movements 1 4 Laboratory Tests 11/24/18 05:00: White Blood Count 10.5, Red Blood Count 3.15L, Hemoglobin 9.5#L, Hematocrit 29.7 #L, Mean Corpuscular Volume 94#, Mean Corpuscular Hemoglobin 30.1, Mean Corpuscular Hemoglobin Concent 31.9L, Red Cell Distribution Width 18.7H, Platelet Count 131L, Mean Platelet Volume 10.1, Neutrophils (%) (Auto) 72.2, Lymphocytes (%) (Auto) 18.8L, Monocytes (%) (Auto) 7.2, Eosinophils (%) (Auto) 1.2, Basophils (%) (Auto) 0.5, Sodium Level 148H, Potassium Level 3.5, Chloride Level 114H, Carbon Dioxide Level 23, Anion Gap 12, Blood Urea Nitrogen 25H, Creatinine 1.9H, Estimat Glomerular Filtration Rate , Glucose Level 131H, Calcium Level 8.3L 11/24/18 05:20: Random Vancomycin Level 15.0 Height (Feet): 5 Height (Inches): 4.00 Weight (Pounds): 174 General Appearance: no apparent distress, alert EENT: normal ENT inspection Neck: normal alignment, supple Cardiovascular: normal rate, regular rhythm Respiratory/Chest: rhonchi - bilaterally Abdomen: non tender, soft Edema: no edema noted Arm (L), no edema noted Arm (R), no edema noted Leg (L), no edema noted Leg (R), no edema noted Pedal (L), no edema noted Pedal (R), no edema noted Generalized Jakub García MD November 24, 2018 10:01
--- NOTE | 2018-11-24 10:04 | NUR ---
NURSE NOTES: Seen by Dr García with new order to transfer to [facility].Patient cleaned dry and kept comfortbale.
--- NOTE | 2018-11-24 10:34 | Pulmonology Progress Note ---
Assessment/Plan Assessment/Plan IMPRESSION: 1. Sepsis and bacteremia. 2. UTI. 3. COPD. 4. Diabetes mellitus. 5. Chronic G-tube. 6. Dementia. 7. Severe hypernatremia. 8. Acute renal failure. 9. Anemia; improved after prbc DISCUSSION: 1. Septic shock. Continue broad-spectrum antibiotics. Sent urine, sputum, and blood cultures. 2. Decubitus. I will initiate wound care. At this time, no further intervention required. 3. Enteral feedings. I will resume enteral feedings and also continue Protonix. 4. DVT prophylaxis. Continue heparin subcu. 5. Hypernatremia. Continue hypotonic fluid. Appreciate nephrology consult. 6. Diabetes mellitus. Continue insulin sliding scale. Seen by endocrinology. 7. COPD. Continue oxygen. 8. Hypertension. Currently hypotensive on Levophed. 9. Metabolic encephalopathy. The patient is a Full Code. Discussed with nursing staff. The patient has a POLST. I will follow carefully. Maxim East MD Subjective Interval Events: Hgb better; Na better Constitutional: Reports: no symptoms HEENT: Repors: no symptoms Respiratory: Reports: no symptoms Cardiovascular: Reports: no symptoms Gastrointestinal/Abdominal: Reports: no symptoms Genitourinary: Reports: no symptoms Allergies: Coded Allergies: SULFA (SULFONAMIDE ANTIBIOTICS) (Unverified Allergy, Unknown, 09/30/18) COPIED FROM UNCODED Uncoded Allergies: SULFA (Allergy, Unknown, 11/20/18) Objective Last 24 Hour Vital Signs Date Time Temp Pulse Resp B/P (MAP) Pulse Ox O2 Delivery O2 Flow Rate FiO2 11/24/18 09:00 98 23 109/59 (76) 97 11/24/18 08:00 99.2 95 22 100/61 (74) 97 11/24/18 08:00 Nasal Cannula 2.0 11/24/18 07:00 97 23 119/57 (77) 98 11/24/18 06:00 94 25 102/56 (71) 98 11/24/18 05:00 91 25 115/47 (69) 98 11/24/18 05:00 115/47 11/24/18 04:30 90 24 111/61 (78) 98 11/24/18 04:00 99.1 104 22 98/83 (88) 93 11/24/18 04:00 104 11/24/18 04:00 98/83 11/24/18 04:00 Nasal Cannula 2.0 11/24/18 03:30 88 23 114/47 (69) 98 11/24/18 03:00 114/47 11/24/18 03:00 88 24 108/50 (69) 98 11/24/18 02:30 90 25 124/61 (82) 98 11/24/18 02:00 118/49 11/24/18 02:00 89 24 118/49 (72) 99 11/24/18 01:30 90 25 102/55 (71) 98 11/24/18 01:00 89 23 107/52 (70) 98 11/24/18 01:00 107/52 11/24/18 00:30 91 27 102/71 (81) 98 11/24/18 00:00 Nasal Cannula 2.0 11/24/18 00:00 97 11/24/18 00:00 97/64 11/24/18 00:00 99.2 97 22 97/64 (75) 99 11/23/18 23:40 90/67 11/23/18 23:30 89 21 90/67 (75) 99 11/23/18 23:00 119/51 11/23/18 23:00 90 23 119/51 (73) 98 11/23/18 22:30 90 25 111/49 (69) 98 11/23/18 22:00 91 25 108/47 (67) 98 11/23/18 22:00 108/47 11/23/18 21:30 92 25 103/54 (70) 99 11/23/18 21:00 94 26 89/59 (69) 99 11/23/18 21:00 89/59 11/23/18 20:30 94 26 99/54 (69) 99 11/23/18 20:00 99.0 99 21 116/67 (83) 99 11/23/18 20:00 Nasal Cannula 2.0 11/23/18 20:00 99 11/23/18 20:00 116/67 11/23/18 19:30 91 25 106/65 (79) 99 11/23/18 19:07 Room Air 21 11/23/18 19:07 92 24 Room Air 21 11/23/18 19:07 99 Room Air 21 11/23/18 19:00 93 28 103/39 (60) 99 11/23/18 18:30 93 28 105/35 (58) 99 11/23/18 18:00 88 24 116/46 (69) 100 11/23/18 17:30 87 22 105/42 (63) 100 11/23/18 17:00 89 19 102/48 (66) 98 11/23/18 16:30 92 19 100/48 (65) 94 11/23/18 16:00 Nasal Cannula 2.0 11/23/18 16:00 91 11/23/18 16:00 97.8 91 28 106/63 (77) 100 11/23/18 15:30 92 26 99/46 (63) 99 11/23/18 14:30 92 24 110/42 (64) 99 11/23/18 14:00 91 27 109/47 (67) 99 11/23/18 13:30 91 29 118/50 (72) 99 11/23/18 13:00 95 33 111/44 (66) 99 11/23/18 12:30 100 24 118/95 (103) 95 11/23/18 12:00 96 11/23/18 12:00 98.0 91 28 108/42 (64) 100 11/23/18 12:00 Nasal Cannula 2.0 11/23/18 11:30 100 27 102/57 (72) 97 11/23/18 11:00 99 29 105/50 (68) 97 Intake and Output 11/23/18 11/24/18 19:00 07:00 Intake Total 2165.00 ml 1431.25 ml Output Total 2140 ml 1625 ml Balance 25.00 ml -193.75 ml Intake Free Water 120 ml IV Total 1185.00 ml 1071.25 ml Tube Feeding 360 ml 360 ml Blood Product 500 ml Output Urine Total 2140 ml 1625 ml # Bowel Movements 1 4 General Appearance: no acute distress HEENT: normocephalic Respiratory/Chest: lungs clear Cardiovascular: normal peripheral pulses Abdomen: normal bowel sounds Microbiology Date/Time Source Procedure Growth Status 11/21/18 18:18 Rectum - Final NO CARBAPENEM-RESISTANT ENTEROBACTERI... Complete Laboratory Tests 11/24/18 05:00: White Blood Count 10.5, Red Blood Count 3.15L, Hemoglobin 9.5#L, Hematocrit 29.7 #L, Mean Corpuscular Volume 94#, Mean Corpuscular Hemoglobin 30.1, Mean Corpuscular Hemoglobin Concent 31.9L, Red Cell Distribution Width 18.7H, Platelet Count 131L, Mean Platelet Volume 10.1, Neutrophils (%) (Auto) 72.2, Lymphocytes (%) (Auto) 18.8L, Monocytes (%) (Auto) 7.2, Eosinophils (%) (Auto) 1.2, Basophils (%) (Auto) 0.5, Sodium Level 148H, Potassium Level 3.5, Chloride Level 114H, Carbon Dioxide Level 23, Anion Gap 12, Blood Urea Nitrogen 25H, Creatinine 1.9H, Estimat Glomerular Filtration Rate , Glucose Level 131H, Calcium Level 8.3L 11/24/18 05:20: Random Vancomycin Level 15.0 Current Medications Medications (Trade) Dose Ordered Sig/Chandu Route PRN Reason Start Time Stop Time Status Last Admin Dose Admin Albuterol/ Ipratropium (Albuterol/ Ipratropium) 3 ml Q6H PRN HHN Shortness of Breath 11/21/18 07:30 11/26/18 07:29 Chlorhexidine Gluconate (Sue-Hex 2%) 1 applic DAILY@2000 TOPIC 11/21/18 20:00 12/21/18 19:59 11/23/18 20:10 Dextrose (Dextrose 50%) 25 ml Q30M PRN IV Hypoglycemia 11/21/18 19:45 12/21/18 19:44 Dextrose (Dextrose 50%) 50 ml Q30M PRN IV Hypoglycemia 11/21/18 19:45 12/21/18 19:44 Dextrose/ Electrolytes 1,000 ml @ 75 mls/hr [id number] IV 11/23/18 09:00 12/23/18 08:59 11/23/18 23:36 Heparin Sodium (Porcine) (Heparin 5000 units/ml) 5,000 units EVERY 12 HOURS SUBQ 11/21/18 09:00 12/21/18 08:59 11/23/18 09:10 Insulin Aspart (NovoLOG) Q6HR SUBQ 11/21/18 12:00 12/21/18 11:59 11/24/18 05:54 Insulin Detemir (Levemir) 8 units BID SUBQ 11/21/18 19:45 12/21/18 19:44 11/24/18 08:23 Norepinephrine Bitartrate 4 mg/ Dextrose 250 ml @ 0 mls/hr Q24H IV 11/21/18 00:15 12/21/18 00:14 11/23/18 23:40 Pantoprazole (Protonix) 40 mg DAILY IVP 11/21/18 09:00 12/21/18 08:59 11/24/18 08:22 Piperacillin Sod/ Tazobactam Sod 3.375 gm/Sodium Chloride 110 ml @ 27.5 mls/hr EVERY 8 HOURS IVPB 11/24/18 14:00 11/29/18 13:59 Piperacillin Sod/ Tazobactam Sod 3.375 gm/Sodium Chloride 110 ml @ 27.5 mls/hr Q12H IVPB 11/21/18 04:30 11/24/18 13:59 11/24/18 04:19 Vancomycin HCl (Vanco rx to dose) 1 ea DAILY PRN MISC Per rx protocol 11/21/18 15:00 12/21/18 14:59 Maxim East MD November 24, 2018 10:34
[2018-11-24] MEDS: D5W w/KCl 20mEq 1,000 ML IV SCH (11:55)
--- NOTE | 2018-11-24 12:03 | NUR ---
NURSE NOTES: Patient turned and repositioned.Mouth care done.Kept clean dry and comfortable
--- NOTE | 2018-11-24 13:08 | Diagnostic Imaging Report ---
INDICATION: Tubes COMPARISON: Chest x-ray dated 11/22/18 FINDINGS: Single frontal view demonstrates a normal cardiomediastinal silhouette. The lungs are clear. No pleural effusions. The visualized osseous structures are within normal limits. Right internal jugular catheter with tip in the midsuperior vena cava. IMPRESSION: No acute cardiopulmonary disease. Right internal jugular catheter with tip in the midsuperior vena cava.
--- NOTE | 2018-11-24 13:48 | NUR ---
CASE MANAGEMENT: REVIEW SI: PNA . COPD T 99.2 HR 97 RR 22 BP 97/64 SAT 99% NC/2L H/H 9.5/29.7 NA 148 BUN 25 CER 1.9 IS: LEVOPHED GTT MEROPENEM IV Q12HR ALBUTEROL HHN Q6HR PRN ICU STATUS DCP: PATIENT IS FROM [facility]
[2018-11-24] MEDS ORDERED: Zosyn 3.375gm q8h **Extended infusion IVPB SCH ×2 (14:00)
--- NOTE | 2018-11-24 14:39 | NUR ---
NURSE NOTES: Turned and repositioned.kept clean and dry.Seen by Dr Calixto,will follow up with new orders.Call light within easy reach.
--- NOTE | 2018-11-24 15:23 | Infectious Diseases Prog Note ---
Assessment/Plan Assessment/Plan ASSESSMENT AND PLAN: 1. mrsa bacteremia, ? sugar sampler bacteremia, esbl e.coli uti, sepsis/shock, leukocytosis, fevers, ? endocarditis - meropenem and vancomycin - TTE - no vegetation described - check surveillance blood cultures - if remain + then RACHAEL - monitor labs - icu and supportive care 2. Hypernatremia. 3. Elevated creatinine, herberth 4. Anemia. 5. Diabetes. 6. Hypertension. 7. Dysphagia, G-tube. 8. Blood sugar and blood pressure treatment, diabetes and hypertension per primary. 9. COPD. 10. CHF. 11. Gastroesophageal reflux disease. 12. Peptic ulcer disease. 13. Osteoarthrosis. 14. History of encephalopathy and dementia. 15. Continue treatment per primary consultants for other medical problems. 16. Allergies to sulfa. 17. Social history is negative. 18. Family history is noncontributory. 19. MAR was noted. 20. Case was discussed with RN. 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 Subjective Constitutional: Reports: fatigue, other - more alert ; Denies: fever HEENT: Reports: congestion, other - some secretions Respiratory: Denies: shortness of breath Gastrointestinal/Abdominal: Denies: nausea, vomiting, diarrhea Genitourinary: Reports: other - + Neurologic: Denies: headache Psychiatric: Reports: other - na Skin: Denies: rash Hematologic: Denies: bleeding Musculoskeletal: Denies: pain Allergies: Coded Allergies: SULFA (SULFONAMIDE ANTIBIOTICS) (Unverified Allergy, Unknown, 09/30/18) COPIED FROM UNCODED Uncoded Allergies: SULFA (Allergy, Unknown, 11/20/18) Objective Vital Signs Last 24 Hour Vital Signs Date Time Temp Pulse Resp B/P (MAP) Pulse Ox O2 Delivery O2 Flow Rate FiO2 11/24/18 14:00 87 18 108/60 (76) 97 11/24/18 13:00 98 19 109/56 (73) 97 11/24/18 12:00 Nasal Cannula 2.0 11/24/18 12:00 95 11/24/18 12:00 98.9 95 30 104/51 (68) 96 11/24/18 11:00 98 28 121/56 (77) 97 11/24/18 10:00 96 23 123/57 (79) 97 11/24/18 09:00 98 23 109/59 (76) 97 11/24/18 08:00 98 11/24/18 08:00 99.2 95 22 100/61 (74) 97 11/24/18 08:00 Nasal Cannula 2.0 11/24/18 07:00 97 23 119/57 (77) 98 11/24/18 06:00 94 25 102/56 (71) 98 11/24/18 05:00 91 25 115/47 (69) 98 11/24/18 05:00 115/47 11/24/18 04:30 90 24 111/61 (78) 98 11/24/18 04:00 99.1 104 22 98/83 (88) 93 11/24/18 04:00 104 11/24/18 04:00 98/83 11/24/18 04:00 Nasal Cannula 2.0 11/24/18 03:30 88 23 114/47 (69) 98 11/24/18 03:00 114/47 11/24/18 03:00 88 24 108/50 (69) 98 11/24/18 02:30 90 25 124/61 (82) 98 11/24/18 02:00 118/49 11/24/18 02:00 89 24 118/49 (72) 99 11/24/18 01:30 90 25 102/55 (71) 98 11/24/18 01:00 89 23 107/52 (70) 98 11/24/18 01:00 107/52 11/24/18 00:30 91 27 102/71 (81) 98 11/24/18 00:00 Nasal Cannula 2.0 11/24/18 00:00 97 11/24/18 00:00 97/64 11/24/18 00:00 99.2 97 22 97/64 (75) 99 11/23/18 23:40 90/67 11/23/18 23:30 89 21 90/67 (75) 99 11/23/18 23:00 119/51 11/23/18 23:00 90 23 119/51 (73) 98 11/23/18 22:30 90 25 111/49 (69) 98 11/23/18 22:00 91 25 108/47 (67) 98 11/23/18 22:00 108/47 11/23/18 21:30 92 25 103/54 (70) 99 11/23/18 21:00 94 26 89/59 (69) 99 11/23/18 21:00 89/59 11/23/18 20:30 94 26 99/54 (69) 99 11/23/18 20:00 99.0 99 21 116/67 (83) 99 11/23/18 20:00 Nasal Cannula 2.0 11/23/18 20:00 99 11/23/18 20:00 116/67 11/23/18 19:30 91 25 106/65 (79) 99 11/23/18 19:07 Room Air 21 11/23/18 19:07 92 24 Room Air 21 11/23/18 19:07 99 Room Air 21 11/23/18 19:00 93 28 103/39 (60) 99 11/23/18 18:30 93 28 105/35 (58) 99 11/23/18 18:00 88 24 116/46 (69) 100 11/23/18 17:30 87 22 105/42 (63) 100 11/23/18 17:00 89 19 102/48 (66) 98 11/23/18 16:30 92 19 100/48 (65) 94 11/23/18 16:00 Nasal Cannula 2.0 11/23/18 16:00 91 11/23/18 16:00 97.8 91 28 106/63 (77) 100 11/23/18 15:30 92 26 99/46 (63) 99 Height (Feet): 5 Height (Inches): 4.00 Weight (Pounds): 174 General Appearance: no acute distress HEENT: normocephalic, atraumatic, anicteric Respiratory/Chest: lungs clear, normal breath sounds, no respiratory distress, no accessory muscle use Cardiovascular: normal rate, regular rhythm, no gallop/murmur, no JVD Abdomen: normal bowel sounds, soft, non tender, no organomegaly, non distended Genitourinary: other - + cruz - urine clear Extremities: no cyanosis Skin: no rash Neurologic/Psychiatric: asic verification engineer II-XII grossly normal, alert, responsive Lymphatic: no neck adenopathy Musculoskeletal: no effusion Objective Chest x-ray - 11/24/18 - COMPARISON: Chest x-ray dated 11/22/18 FINDINGS: Single frontal view demonstrates a normal cardiomediastinal silhouette. The lungs are clear. No pleural effusions. The visualized osseous structures are within normal limits. Right internal jugular catheter with tip in the midsuperior vena cava. IMPRESSION: No acute cardiopulmonary disease. Right internal jugular catheter with tip in the midsuperior vena cava. Microbiology Date/Time Source Procedure Growth Status 11/20/18 16:45 Blood Blood Culture - Final Staphylococcus Aureus - Mrsa Staphylococcus Epidermidis Complete 11/20/18 18:18 Nasal Nares MRSA Culture - Final Staphylococcus Aureus - Mrsa Complete 11/20/18 16:50 Urine,Clean Catch Urine Culture - Final Escherichia Coli - Esbl#2 Escherichia Coli Complete 11/21/18 18:18 Rectum - Final NO CARBAPENEM-RESISTANT ENTEROBACTERI... Complete Microbiology Date/Time Source Procedure Growth Status 11/21/18 18:18 Rectum - Final NO CARBAPENEM-RESISTANT ENTEROBACTERI... Complete Laboratory Tests Test 11/24/18 05:00 11/24/18 05:20 White Blood Count 10.5 K/UL (4.8-10.8) Red Blood Count 3.15 M/UL (4.20-5.40) L Hemoglobin 9.5 G/DL (12.0-16.0) #L Hematocrit 29.7 % (37.0-47.0) #L Mean Corpuscular Volume 94 FL (80-99) # Mean Corpuscular Hemoglobin 30.1 PG (27.0-31.0) Mean Corpuscular Hemoglobin Concent 31.9 G/DL (32.0-36.0) L Red Cell Distribution Width 18.7 % (11.6-14.8) H Platelet Count 131 K/UL (150-450) L Mean Platelet Volume 10.1 FL (6.5-10.1) Neutrophils (%) (Auto) 72.2 % (45.0-75.0) Lymphocytes (%) (Auto) 18.8 % (20.0-45.0) L Monocytes (%) (Auto) 7.2 % (1.0-10.0) Eosinophils (%) (Auto) 1.2 % (0.0-3.0) Basophils (%) (Auto) 0.5 % (0.0-2.0) Sodium Level 148 MMOL/L (136-145) H Potassium Level 3.5 MMOL/L (3.5-5.1) Chloride Level 114 MMOL/L (98-107) H Carbon Dioxide Level 23 MMOL/L (21-32) Anion Gap 12 mmol/L (5-15) Blood Urea Nitrogen 25 mg/dL (7-18) H Creatinine 1.9 MG/DL (0.55-1.30) H Estimat Glomerular Filtration Rate mL/min (>60) Glucose Level 131 MG/DL (74-106) H Calcium Level 8.3 MG/DL (8.5-10.1) L Random Vancomycin Level 15.0 ug/mL Current Medications Medications (Trade) Dose Ordered Sig/Chandu Route PRN Reason Start Time Stop Time Status Last Admin Dose Admin Albuterol/ Ipratropium (Albuterol/ Ipratropium) 3 ml Q6H PRN HHN Shortness of Breath 11/21/18 07:30 11/26/18 07:29 Chlorhexidine Gluconate (Sue-Hex 2%) 1 applic DAILY@2000 TOPIC 11/21/18 20:00 12/21/18 19:59 11/23/18 20:10 Dextrose (Dextrose 50%) 25 ml Q30M PRN IV Hypoglycemia 11/21/18 19:45 12/21/18 19:44 Dextrose (Dextrose 50%) 50 ml Q30M PRN IV Hypoglycemia 11/21/18 19:45 12/21/18 19:44 Dextrose/ Electrolytes 1,000 ml @ 75 mls/hr [id number] IV 11/23/18 09:00 12/23/18 08:59 11/24/18 11:55 Heparin Sodium (Porcine) (Heparin 5000 units/ml) 5,000 units EVERY 12 HOURS SUBQ 11/21/18 09:00 12/21/18 08:59 11/23/18 09:10 Insulin Aspart (NovoLOG) Q6HR SUBQ 11/21/18 12:00 12/21/18 11:59 11/24/18 11:56 Insulin Detemir (Levemir) 8 units BID SUBQ 11/21/18 19:45 12/21/18 19:44 11/24/18 08:23 Norepinephrine Bitartrate 4 mg/ Dextrose 250 ml @ 0 mls/hr Q24H IV 11/21/18 00:15 12/21/18 00:14 11/23/18 23:40 Pantoprazole (Protonix) 40 mg DAILY IVP 11/21/18 09:00 12/21/18 08:59 11/24/18 08:22 Piperacillin Sod/ Tazobactam Sod 3.375 gm/Sodium Chloride 110 ml @ 27.5 mls/hr EVERY 8 HOURS IVPB 11/24/18 14:00 11/29/18 13:59 11/24/18 14:06 Vancomycin HCl (Vanco rx to dose) 1 ea DAILY PRN MISC Per rx protocol 11/21/18 15:00 12/21/18 14:59 Blanca Leigh MD November 24, 2018 15:23
[2018-11-24] MEDS ORDERED: Meropenem 500mg in NS 55ml IVPB SCH (16:30)
--- NOTE | 2018-11-24 16:33 | NUR ---
NURSE NOTES: Mouth care done, turned and repositioned.Kept clean dry dry and comfortable
--- NOTE | 2018-11-24 18:07 | NUR ---
NURSE NOTES: Patient ADls done,mouth care and suction provided.HOB elevated to prevent aspiration.Turned and repositioned.Call light within easy reach.Kept clean dry and comfortable.
--- NOTE | 2018-11-24 19:34 | NUR ---
HAND-OFF: Report given to DAKOTA Galan.
--- NOTE | 2018-11-24 19:40 | NUR ---
NURSE NOTES: PATIENT SLEEPING STATUS, RESPONSE TO NAME, RESPIRATION REGULAR ON ROOM AIR, O2 SATURATION OVER 97% NOTED, ABDOMEN SOFT, NON TENDER, G TUBE INTACT AND PATENT, ONGOING GLUCERNA 1.2 AT 30ML/HR, NO RESIDUE NOTED, F/C INTACT AND PATENT PALE YELLOW URINE OUTED, TLC TO RIGHT IJ D5W W/ KCL 20MEQ AT 75ML/HR VIA TLC, MADE LOWER BED POSITION, ON P200 BED, HOB 30 DEGREE, PROVIDED CALL LIGHT WITHIN REACH, WILL CONTINUE TO MONITOR.
[2018-11-24] MEDS: Dyna-Hex 2% Top Sol 2oz TOPIC SCH (20:26)
--- NOTE | 2018-11-24 22:00 | NUR ---
NURSE NOTES: REPOSITIONED, NO PAIN OR DISTRESS NOTED AT THIS TIME.
--- NOTE | 2018-11-24 22:50 | NUR ---
TRANSFER TO FLOOR: No acute distress noted while transfer. Patient transferred to SDU Room 244-2 via hospital bed. Report given to DAKOTA RICE. Belongings and medications given to DAKOTA RICE.
--- NOTE | 2018-11-24 22:50 | NUR ---
NURSE NOTES: Received patient from Vickey DUNCAN. Patient is disoriented neuro x1. Receiving oxygen via nasal cannula at 3L/min saturating at 96%. Patient's Gtube is patent and receiving Glucerna 1.2 at 30cc/hr. Scales catheter is intact and draining. IV site is Right Intrajugular TLC intact and asymptomatic receiving D5W with KCl 20mEq at 75cc/hr. Bed is locked, placed in lowest position, side rails up x3, call light within reach. Will continue to monitor.
[2018-11-24] MEDS ORDERED: D5W w/KCl 20mEq 1,000 ML IV SCH (23:00)
[2018-11-25] VITALS: BP 111/58
[2018-11-25] MEDS: NovoLOG Insulin Flexpen SUBQ SCH ×5 (00:08→17:11)
[2018-11-25] MEDS ORDERED: Albuterol/Ipratropium 3ml neb HHN PRN (01:30)
--- NOTE | 2018-11-25 02:00 | Progress Note ---
DATE: 11/24/2018 CARDIOLOGY PROGRESS NOTE SUBJECTIVE: The patient is without any respiratory distress. She remains with low-grade temperatures. She is off pressors. OBJECTIVE: VITAL SIGNS: Blood pressure 109/59, pulse 98, and respirations 23. LUNGS: Bilateral breath sounds. No wheezing. HEART: Regular rhythm and rate. Normal S1, S2. A 1/6 systolic murmur at base. ABDOMEN: Soft. EXTREMITIES: No edema. LABORATORY DATA: White count 10 and hemoglobin 9.5 post transfusion. Sodium 148, potassium 3.5, bicarb 23, chloride 114, BUN 25, and creatinine 1.9. Echocardiogram is noted yesterday. It did not reveal any signs of vegetations of valvular disease. Chest x-ray reveals right IJ in place with no acute process. IMPRESSION: 1. Recovering shock due to sepsis and hypovolemia. 2. Escherichia coli ESBL urinary tract infection. 3. MRSA bacteremia, source unclear. 4. Low risk of endocarditis by echocardiographic criteria. 5. Dehydration. 6. Hypernatremia. 7. Hypovolemia. 8. Acute renal failure. 9. Toxic and metabolic encephalopathies. PLAN: 1. Surveillance cultures. If positive, may need to pursue transesophageal echocardiogram. 2. Antimicrobials per Infectious Disease solar energy consultant and designer. 3. Monitor volume status and cardiorenal parameters. 4. Continue free water replacement and electrolyte replacement based on clinical parameters. 5. DVT and stress ulcer prophylaxis. Robert Cuellar M.D. DR: ANNABELLA JOB#: [id number] CC:
[2018-11-25 04:00] VITALS: BP 121/67
[2018-11-25] MEDS: Meropenem 500 MG in NS 55 ML IVPB SCH ×2 (04:19→16:57)
[2018-11-25 04:41] LABS: BASOPHILS % (AUTO) 0.7 % (0.0-2.0); EOSINOPHILS % (AUTO) 1.7 % (0.0-3.0); HEMATOCRIT 31.6 % (37.0-47.0); HEMOGLOBIN 10.1 G/DL (12.0-16.0); LYMPHOCYTES % (AUTO) 24.5 % (20.0-45.0); MEAN CORPUSCULAR VOLUME 94 FL (80-99); MONOCYTES % (AUTO) 8.2 % (1.0-10.0); NEUTROPHILS % (AUTO) 64.8 % (45.0-75.0); PLATELET COUNT 132 K/UL (150-450); RED BLOOD COUNT 3.35 M/UL (4.20-5.40); RED CELL DISTRIBUTION WIDTH 19.2 % (11.6-14.8); WHITE BLOOD COUNT 7.8 K/UL (4.8-10.8)
[2018-11-25 05:10] LABS: ANION GAP 10 mmol/L (5-15); BLOOD UREA NITROGEN 24 mg/dL (7-18); CALCIUM 8.9 MG/DL (8.5-10.1); CARBON DIOXIDE 24 MMOL/L (21-32); CHLORIDE 114 MMOL/L (98-107); CREATININE 1.9 MG/DL (0.55-1.30); SODIUM 148 MMOL/L (136-145)
--- NOTE | 2018-11-25 07:10 | NUR ---
HAND-OFF: Report given to DAKOTA Cristina. Patient is asleep and showing no signs of distress.
--- NOTE | 2018-11-25 07:10 | NUR ---
NURSE NOTES: received patient report from hardik rn. patient is on bed asleep. not in acute distress. comfortable. on nc @ 2 li. saturation is 96-99%. ST1 sacral pressure sore. on p200 mattress. will follow plan of care.
[2018-11-25 08:00] VITALS: BP 104/62
--- NOTE | 2018-11-25 08:17 | Nephrology Progress Note ---
Assessment/Plan Assessment/Plan: A/P 1. NAOMY secondary to multifactorial ATN from ischemia/vol depletion and proximal tubule injury from inflammatory cytokines due to sepsis. - Cr and BUN much improved 24/1.9 respectively 2. Septic shock. Blood and urine Cxs +ve -Broad spectrum antibiotics per ID 3. Severe volume depletion. Na 148. - DC D5W and add free water thru PEG 4. Hypotension secondary to sepsis. Stable 5. Hypokalemia- will replace prn basis Subjective Date patient seen: November 25, 2018 Time patient seen: 08:15 ROS Limited/Unobtainable: Yes Allergies: Coded Allergies: SULFA (SULFONAMIDE ANTIBIOTICS) (Unverified Allergy, Unknown, 09/30/18) COPIED FROM UNCODED Uncoded Allergies: SULFA (Allergy, Unknown, 11/20/18) Subjective Patient tx out of MICU, improving slowly Objective Last 24 Hour Vital Signs Date Time Temp Pulse Resp B/P (MAP) Pulse Ox O2 Delivery O2 Flow Rate FiO2 11/25/18 05:01 Nasal Cannula 2.0 11/25/18 05:00 Room Air 11/25/18 04:00 96.6 89 24 121/67 (85) 99 11/25/18 04:00 Nasal Cannula 2.0 11/25/18 03:39 88 11/25/18 00:00 85 22 111/58 (75) 97 11/25/18 00:00 87 11/25/18 00:00 Room Air 11/24/18 22:00 95 23 100/54 (69) 98 11/24/18 21:00 87 23 107/48 (67) 99 11/24/18 20:03 87 11/24/18 20:00 Room Air 11/24/18 20:00 89 20 Room Air 21 11/24/18 20:00 Room Air 21 11/24/18 20:00 99 Room Air 21 11/24/18 20:00 97.4 88 22 98/45 (62) 97 11/24/18 19:00 93 25 103/50 (67) 98 11/24/18 18:00 92 22 116/43 (67) 97 11/24/18 18:00 89 25 108/52 (70) 98 11/24/18 17:00 88 22 116/43 (67) 98 11/24/18 16:00 97.8 88 18 117/59 (78) 98 11/24/18 16:00 99 11/24/18 16:00 Nasal Cannula 2.0 11/24/18 15:00 87 18 106/52 (70) 98 11/24/18 14:00 87 18 108/60 (76) 97 11/24/18 13:00 98 19 109/56 (73) 97 11/24/18 12:00 Nasal Cannula 2.0 11/24/18 12:00 95 11/24/18 12:00 98.9 95 30 104/51 (68) 96 11/24/18 11:00 98 28 121/56 (77) 97 11/24/18 10:00 96 23 123/57 (79) 97 11/24/18 09:00 98 23 109/59 (76) 97 Intake and Output 11/24/18 11/25/18 19:00 07:00 Intake Total 1508.0 ml 1168.75 ml Output Total 2565 ml 2030 ml Balance -1057.0 ml -861.25 ml Intake Free Water 120 ml IV Total 1028.0 ml 808.75 ml Tube Feeding 360 ml 360 ml Output Urine Total 2565 ml 2030 ml # Bowel Movements 4 1 Laboratory Tests 11/25/18 03:30: White Blood Count 7.8, Red Blood Count 3.35L, Hemoglobin 10.1L, Hematocrit 31.6L , Mean Corpuscular Volume 94, Mean Corpuscular Hemoglobin 30.3, Mean Corpuscular Hemoglobin Concent 32.1, Red Cell Distribution Width 19.2H, Platelet Count 132L, Mean Platelet Volume 9.5, Neutrophils (%) (Auto) 64.8, Lymphocytes (%) (Auto) 24.5, Monocytes (%) (Auto) 8.2, Eosinophils (%) (Auto) 1.7, Basophils (%) (Auto) 0.7, Sodium Level 148H, Potassium Level 4.0, Chloride Level 114H, Carbon Dioxide Level 24, Anion Gap 10, Blood Urea Nitrogen 24H, Creatinine 1.9H, Estimat Glomerular Filtration Rate , Glucose Level 168H, Calcium Level 8.9 Height (Feet): 5 Height (Inches): 4.00 Weight (Pounds): 189 General Appearance: no apparent distress EENT: normal ENT inspection Neck: normal alignment, supple Cardiovascular: normal rate, regular rhythm Respiratory/Chest: normal breath sounds, rhonchi - bilaterally Abdomen: non tender, soft Edema: no edema noted Arm (L), no edema noted Arm (R), no edema noted Leg (L), no edema noted Leg (R), no edema noted Pedal (L), no edema noted Pedal (R), no edema noted Generalized Jakub García MD November 25, 2018 08:16
[2018-11-25] MEDS: Pantoprazole Inj IVP SCH (09:05)
[2018-11-25] MEDS: Heparin 5000 units/ml inj SUBQ SCH ×2 (09:07→20:51)
[2018-11-25] MEDS: Levemir Flexpen SUBQ SCH ×2 (09:12→17:10)
--- NOTE | 2018-11-25 09:21 | Pulmonology Progress Note ---
Assessment/Plan Assessment/Plan IMPRESSION: 1. Sepsis and bacteremia. 2. UTI. 3. COPD. 4. Diabetes mellitus. 5. Chronic G-tube. 6. Dementia. 7. Severe hypernatremia. 8. Acute renal failure. 9. Anemia; improved after prbc DISCUSSION: 1. Septic shock. Continue broad-spectrum antibiotics. Sent urine, sputum, and blood cultures. 2. Decubitus. I will initiate wound care. At this time, no further intervention required. 3. Enteral feedings. I will resume enteral feedings and also continue Protonix. 4. DVT prophylaxis. Continue heparin subcu. 5. Hypernatremia. Continue hypotonic fluid. Appreciate nephrology consult. 6. Diabetes mellitus. Continue insulin sliding scale. Seen by endocrinology. 7. COPD. Continue oxygen. 8. Hypertension. Currently hypotensive on Levophed. 9. Metabolic encephalopathy. The patient is a Full Code. Discussed with nursing staff. The patient has a POLST. I will follow carefully. Maxim East MD Subjective Interval Events: None new Constitutional: Reports: no symptoms HEENT: Repors: no symptoms Respiratory: Reports: no symptoms Cardiovascular: Reports: no symptoms Gastrointestinal/Abdominal: Reports: no symptoms Genitourinary: Reports: no symptoms Allergies: Coded Allergies: SULFA (SULFONAMIDE ANTIBIOTICS) (Unverified Allergy, Unknown, 09/30/18) COPIED FROM UNCODED Uncoded Allergies: SULFA (Allergy, Unknown, 11/20/18) Objective Last 24 Hour Vital Signs Date Time Temp Pulse Resp B/P (MAP) Pulse Ox O2 Delivery O2 Flow Rate FiO2 11/25/18 08:00 97.2 95 23 104/62 (76) 97 11/25/18 07:59 88 11/25/18 05:01 Nasal Cannula 2.0 11/25/18 05:00 Room Air 11/25/18 04:00 96.6 89 24 121/67 (85) 99 11/25/18 04:00 Nasal Cannula 2.0 11/25/18 03:39 88 11/25/18 00:00 85 22 111/58 (75) 97 11/25/18 00:00 87 11/25/18 00:00 Room Air 11/24/18 22:00 95 23 100/54 (69) 98 11/24/18 21:00 87 23 107/48 (67) 99 11/24/18 20:03 87 11/24/18 20:00 Room Air 11/24/18 20:00 89 20 Room Air 21 11/24/18 20:00 Room Air 21 11/24/18 20:00 99 Room Air 21 11/24/18 20:00 97.4 88 22 98/45 (62) 97 11/24/18 19:00 93 25 103/50 (67) 98 11/24/18 18:00 92 22 116/43 (67) 97 11/24/18 18:00 89 25 108/52 (70) 98 11/24/18 17:00 88 22 116/43 (67) 98 11/24/18 16:00 97.8 88 18 117/59 (78) 98 11/24/18 16:00 99 11/24/18 16:00 Nasal Cannula 2.0 11/24/18 15:00 87 18 106/52 (70) 98 11/24/18 14:00 87 18 108/60 (76) 97 11/24/18 13:00 98 19 109/56 (73) 97 11/24/18 12:00 Nasal Cannula 2.0 11/24/18 12:00 95 11/24/18 12:00 98.9 95 30 104/51 (68) 96 11/24/18 11:00 98 28 121/56 (77) 97 11/24/18 10:00 96 23 123/57 (79) 97 Intake and Output 11/24/18 11/25/18 19:00 07:00 Intake Total 1508.0 ml 1168.75 ml Output Total 2565 ml 2030 ml Balance -1057.0 ml -861.25 ml Intake Free Water 120 ml IV Total 1028.0 ml 808.75 ml Tube Feeding 360 ml 360 ml Output Urine Total 2565 ml 2030 ml # Bowel Movements 4 1 General Appearance: no acute distress HEENT: normocephalic Respiratory/Chest: chest wall non-tender, lungs clear Cardiovascular: normal peripheral pulses, normal rate Abdomen: normal bowel sounds, soft, non tender Microbiology Date/Time Source Procedure Growth Status 11/23/18 04:00 Blood Blood Culture - Preliminary NO GROWTH AFTER 24 HOURS Resulted 11/23/18 03:45 Blood Blood Culture - Preliminary NO GROWTH AFTER 24 HOURS Resulted Laboratory Tests 11/25/18 03:30: White Blood Count 7.8, Red Blood Count 3.35L, Hemoglobin 10.1L, Hematocrit 31.6L , Mean Corpuscular Volume 94, Mean Corpuscular Hemoglobin 30.3, Mean Corpuscular Hemoglobin Concent 32.1, Red Cell Distribution Width 19.2H, Platelet Count 132L, Mean Platelet Volume 9.5, Neutrophils (%) (Auto) 64.8, Lymphocytes (%) (Auto) 24.5, Monocytes (%) (Auto) 8.2, Eosinophils (%) (Auto) 1.7, Basophils (%) (Auto) 0.7, Sodium Level 148H, Potassium Level 4.0, Chloride Level 114H, Carbon Dioxide Level 24, Anion Gap 10, Blood Urea Nitrogen 24H, Creatinine 1.9H, Estimat Glomerular Filtration Rate , Glucose Level 168H, Calcium Level 8.9 Current Medications Medications (Trade) Dose Ordered Sig/Chandu Route PRN Reason Start Time Stop Time Status Last Admin Dose Admin Albuterol/ Ipratropium (Albuterol/ Ipratropium) 3 ml Q6H PRN HHN Shortness of Breath 11/25/18 01:30 11/26/18 07:29 Chlorhexidine Gluconate (Sue-Hex 2%) 1 applic DAILY@2000 TOPIC 11/25/18 20:00 12/21/18 19:59 Dextrose (Dextrose 50%) 25 ml Q30M PRN IV Hypoglycemia 11/24/18 23:15 12/21/18 19:44 Dextrose (Dextrose 50%) 50 ml Q30M PRN IV Hypoglycemia 11/24/18 23:15 12/21/18 19:44 Heparin Sodium (Porcine) (Heparin 5000 units/ml) 5,000 units EVERY 12 HOURS SUBQ 11/25/18 09:00 12/21/18 08:59 11/25/18 09:07 Insulin Aspart (NovoLOG) Q6HR SUBQ 11/25/18 00:00 12/21/18 11:59 11/25/18 06:11 Insulin Detemir (Levemir) 8 units BID SUBQ 11/25/18 09:00 12/21/18 19:44 11/25/18 09:12 Meropenem 500 mg/ Sodium Chloride 55 ml @ 110 mls/hr Q12H IVPB 11/25/18 04:30 11/29/18 16:29 11/25/18 04:19 Pantoprazole (Protonix) 40 mg DAILY IVP 11/25/18 09:00 12/21/18 08:59 11/25/18 09:05 Vancomycin HCl (Vanco rx to dose) 1 ea DAILY PRN MISC Per rx protocol 11/25/18 09:00 12/21/18 14:59 Maxim East MD November 25, 2018 09:21
--- NOTE | 2018-11-25 11:10 | NUR ---
RD ASSESSMENT & RECOMMENDATIONS SEE CARE ACTIVITY FOR COMPLETE ASSESSMENT DAILY ESTIMATED NEEDS: Needs based on Sepsis, DM, 69kg abw 25-30 kcals/kg 8041-1661 total kcals 1-2 g protein/kg 69-138 g total protein 25-30 mL/kg 7566-6236 total fluid mLs NUTRITION DIAGNOSIS: 1) Swallowing difficulty R/T dysphagia as evidenced by pt is GT dep. 2) Altered nutrition related lab values R/T clinical condition, DM, sepsis as evidenced by critically elev Na (162-> 148), elev BUN(87-> 24), elev creat (2.7), elev BGs (293 166-> now improved), elev wbc (13.7), hemodynamically stable, off pressors. CURRENT TF: Glucerna 1.2 @ 30ml ENTERAL NUTRITION RECOMMENDATIONS: Glucerna 1.2 @60ml/hr x24 hrs to provide 1440ml, 1728kcal, 86g prot, 1159ml free water - WITH HEMODYNAMIC STABILITY rec to increase TF goal by 10ml/hr q4-6 hrs to goal of 60ml/hr to meet est needs - Flush per MD. HOB over 30 degrees ADDITIONAL RECOMMENDATIONS: 1) Feed to goal w/ hemodynamic stability -> off pressors now, out of ICU 2) Check lytes daily, replete as needed 3) F/ up w/ WC eval for lt heel and sacral redness per photo Moisture associated sacral per oracle pl sql developer Add ULISSES BID to maintain skin integrity 4) Calibrated bedscale wt
[2018-11-25 12:00] VITALS: BP 114/68
--- NOTE | 2018-11-25 12:42 | General Progress Note ---
Assessment/Plan Problem List: (1) COPD (chronic obstructive pulmonary disease) ICD Codes: J44.9 - Chronic obstructive pulmonary disease, unspecified SNOMED: 75618764 Qualifiers: Qualified Codes: J44.1 - Chronic obstructive pulmonary disease with (acute) exacerbation (2) Severe sepsis ICD Codes: A41.9 - Sepsis, unspecified organism; R65.20 - Severe sepsis without septic shock SNOMED: 82310826 (3) Diabetes ICD Codes: E11.9 - Type 2 diabetes mellitus without complications SNOMED: 91847150 (4) Feeding by G-tube ICD Codes: Z93.1 - Gastrostomy status SNOMED: 068879580, 451735683 (5) Aspiration pneumonia ICD Codes: J69.0 - Pneumonitis due to inhalation of food and vomit SNOMED: 329296402 Assessment/Plan: continue Levemir 8 units bid continue NISS every 6 hours Subjective ROS Limited/Unobtainable: Yes Allergies: Coded Allergies: SULFA (SULFONAMIDE ANTIBIOTICS) (Unverified Allergy, Unknown, 09/30/18) COPIED FROM UNCODED Uncoded Allergies: SULFA (Allergy, Unknown, 11/20/18) Subjective events noted glucose values are stable Item Value Date Time Bedside Blood Glucose 128 mg/dl H 11/25/18 1233 Bedside Blood Glucose 139 mg/dl H 11/25/18 0912 Bedside Blood Glucose 151 mg/dl H 11/25/18 0611 Bedside Blood Glucose 147 mg/dl H 11/25/18 0008 Bedside Blood Glucose 141 mg/dl H 11/24/18 1800 Bedside Blood Glucose 151 mg/dl H 11/24/18 1200 Objective Last 24 Hour Vital Signs Date Time Temp Pulse Resp B/P (MAP) Pulse Ox O2 Delivery O2 Flow Rate FiO2 11/25/18 12:00 Nasal Cannula 2.0 11/25/18 12:00 Room Air 11/25/18 12:00 97.0 90 24 114/68 (83) 98 11/25/18 08:00 97.2 95 23 104/62 (76) 97 11/25/18 08:00 Nasal Cannula 2.0 11/25/18 08:00 Room Air 11/25/18 07:59 88 11/25/18 05:01 Nasal Cannula 2.0 11/25/18 05:00 Room Air 11/25/18 04:00 96.6 89 24 121/67 (85) 99 11/25/18 04:00 Nasal Cannula 2.0 11/25/18 03:39 88 11/25/18 00:00 85 22 111/58 (75) 97 11/25/18 00:00 87 11/25/18 00:00 Room Air 11/24/18 22:00 95 23 100/54 (69) 98 11/24/18 21:00 87 23 107/48 (67) 99 11/24/18 20:03 87 11/24/18 20:00 Room Air 11/24/18 20:00 89 20 Room Air 21 11/24/18 20:00 Room Air 21 11/24/18 20:00 99 Room Air 21 11/24/18 20:00 97.4 88 22 98/45 (62) 97 11/24/18 19:00 93 25 103/50 (67) 98 11/24/18 18:00 92 22 116/43 (67) 97 11/24/18 18:00 89 25 108/52 (70) 98 11/24/18 17:00 88 22 116/43 (67) 98 11/24/18 16:00 97.8 88 18 117/59 (78) 98 11/24/18 16:00 99 11/24/18 16:00 Nasal Cannula 2.0 11/24/18 15:00 87 18 106/52 (70) 98 11/24/18 14:00 87 18 108/60 (76) 97 11/24/18 13:00 98 19 109/56 (73) 97 Intake and Output 11/24/18 11/25/18 19:00 07:00 Intake Total 1508.0 ml 1168.75 ml Output Total 2565 ml 2030 ml Balance -1057.0 ml -861.25 ml Intake Free Water 120 ml IV Total 1028.0 ml 808.75 ml Tube Feeding 360 ml 360 ml Output Urine Total 2565 ml 2030 ml # Bowel Movements 4 1 Laboratory Tests 11/25/18 03:30: White Blood Count 7.8, Red Blood Count 3.35L, Hemoglobin 10.1L, Hematocrit 31.6L , Mean Corpuscular Volume 94, Mean Corpuscular Hemoglobin 30.3, Mean Corpuscular Hemoglobin Concent 32.1, Red Cell Distribution Width 19.2H, Platelet Count 132L, Mean Platelet Volume 9.5, Neutrophils (%) (Auto) 64.8, Lymphocytes (%) (Auto) 24.5, Monocytes (%) (Auto) 8.2, Eosinophils (%) (Auto) 1.7, Basophils (%) (Auto) 0.7, Sodium Level 148H, Potassium Level 4.0, Chloride Level 114H, Carbon Dioxide Level 24, Anion Gap 10, Blood Urea Nitrogen 24H, Creatinine 1.9H, Estimat Glomerular Filtration Rate , Glucose Level 168H, Calcium Level 8.9 Height (Feet): 5 Height (Inches): 4.00 Weight (Pounds): 189 General Appearance: no apparent distress Neck: normal alignment Cardiovascular: normal rate Respiratory/Chest: decreased breath sounds Abdomen: normal bowel sounds Pelvis: normal external exam Objective Current Medications Medications (Trade) Dose Ordered Sig/Chandu Route PRN Reason Start Time Stop Time Status Last Admin Dose Admin Albuterol/ Ipratropium (Albuterol/ Ipratropium) 3 ml Q6H PRN HHN Shortness of Breath 11/25/18 01:30 11/26/18 07:29 Chlorhexidine Gluconate (Sue-Hex 2%) 1 applic DAILY@2000 TOPIC 11/25/18 20:00 12/21/18 19:59 Dextrose (Dextrose 50%) 25 ml Q30M PRN IV Hypoglycemia 11/24/18 23:15 12/21/18 19:44 Dextrose (Dextrose 50%) 50 ml Q30M PRN IV Hypoglycemia 11/24/18 23:15 12/21/18 19:44 Heparin Sodium (Porcine) (Heparin 5000 units/ml) 5,000 units EVERY 12 HOURS SUBQ 11/25/18 09:00 12/21/18 08:59 11/25/18 09:07 Insulin Aspart (NovoLOG) Q6HR SUBQ 11/25/18 00:00 12/21/18 11:59 11/25/18 12:33 Insulin Detemir (Levemir) 8 units BID SUBQ 11/25/18 09:00 12/21/18 19:44 11/25/18 09:12 Meropenem 500 mg/ Sodium Chloride 55 ml @ 110 mls/hr Q12H IVPB 11/25/18 04:30 11/29/18 16:29 11/25/18 04:19 Pantoprazole (Protonix) 40 mg DAILY IVP 11/25/18 09:00 12/21/18 08:59 11/25/18 09:05 Vancomycin HCl (Vanco rx to dose) 1 ea DAILY PRN MISC Per rx protocol 11/25/18 09:00 12/21/18 14:59 Jack Bonilla MD November 25, 2018 12:42
--- NOTE | 2018-11-25 13:44 | NUR ---
CASE MANAGEMENT: REVIEW SI: PNA . COPD T 97.0 HR 90 RR 24 BP 114/68 SAT 98% NC/2L H/H 10.1/31.6 NA 148 BUN 24 CR 1.9 IS: MEROPENEM IV Q12HR ALBUTEROL HHN Q6HR PRN STEP DOWN UNIT STATUS DCP: PATIENT IS FROM [facility]
[2018-11-25 17:12] VITALS: BP 127/78
--- NOTE | 2018-11-25 19:30 | NUR ---
NURSE NOTES: report given to lucy mccann. patient is stable.
--- NOTE | 2018-11-25 19:31 | NUR ---
NURSE NOTES: Patient received from Ibeth Talley RN. Patient awake and in bed with no signs of distress. No signs of acute distress at thia time. Bed at its lowest position, call light in reach and X3 bed rails up. Will continue to monitor.
[2018-11-25 20:00] VITALS: BP 137/72
[2018-11-25] MEDS ORDERED: Dyna-Hex 2% Top Sol 2oz TOPIC SCH (20:00)
--- NOTE | 2018-11-25 20:00 | NUR ---
NURSE NOTES: Patient is combative and refuses care during repositioning. Position change successful.
--- NOTE | 2018-11-25 22:00 | NUR ---
NURSE NOTES: Patient refuses and is combative to care during repositioning. Patient actively refuses to reposition. Charge nurse notified.
[2018-11-26] VITALS: BP 137/72
--- NOTE | 2018-11-26 00:04 | NUR ---
NURSE NOTES: Patient refused blood sugar check. Patient is combative and resistant to care. Charge Nurse made aware
--- NOTE | 2018-11-26 02:14 | NUR ---
NURSE NOTES: Patient refused care. Patient combative to repositioning. Educated patient on the benefits of repositioning. Patient did not respond to education.
--- NOTE | 2018-11-26 02:15 | Progress Note ---
DATE: 11/25/2018 CARDIOLOGY PROGRESS NOTE SUBJECTIVE: The patient is off pressors. Blood pressure parameters have stabilized. She continues on antimicrobials. Wound care is initiated for decubitus. OBJECTIVE: VITAL SIGNS: Blood pressure 104/62, pulse 95, respiratory rate 23, and afebrile. LUNGS: Bilateral breath sounds. HEART: Regular rhythm and rate. Normal S1, S2. No murmur. ABDOMEN: Soft. EXTREMITIES: No edema. LABORATORY DATA: Urine culture is positive for ESBL E. Blood cultures positive for Staph aureus. White count 7.8, hemoglobin 10.1. Potassium 4, sodium 148, bicarb 24, BUN 24, creatinine 1.9. IMPRESSION: 1. Sepsis with shock, recovering. 2. Urinary tract infection. 3. Staph aureus bacteremia. 4. Low likelihood of endocarditis based on echocardiographic criteria. 5. Acute renal failure improving. 6. Dehydration and hypernatremia with hyperchloremia recovering. PLAN: 1. Continue hypotonic hydration with IV fluids. 2. Antimicrobials per Infectious Disease audit consultant. 3. DVT and stress ulcer prophylaxes. 4. No pressors as needed at this time. 5. Continue to monitor volume status and cardiorenal parameters. 6. Trend natriuretic peptide assay. Robert Cuellar M.D. DR: JACQUELINE JOB#: [id number] CC:
[2018-11-26 04:00] VITALS: BP_SYST 100; BP_SYST 137; BP_DIAS 52; BP_DIAS 72
[2018-11-26] MEDS: Meropenem 500 MG in NS 55 ML IVPB SCH ×2 (04:07→16:42)
[2018-11-26 05:24] LABS: ANION GAP 11 mmol/L (5-15); BLOOD UREA NITROGEN 28 mg/dL (7-18); CALCIUM 9.2 MG/DL (8.5-10.1); CARBON DIOXIDE 25 MMOL/L (21-32); CHLORIDE 112 MMOL/L (98-107); POTASSIUM 3.7 MMOL/L (3.5-5.1); SODIUM 148 MMOL/L (136-145)
[2018-11-26] MEDS: NovoLOG Insulin Flexpen SUBQ SCH ×4 (06:27→18:05)
--- NOTE | 2018-11-26 06:35 | General Progress Note ---
Assessment/Plan Problem List: (1) COPD (chronic obstructive pulmonary disease) ICD Codes: J44.9 - Chronic obstructive pulmonary disease, unspecified SNOMED: 02225704 Qualifiers: Qualified Codes: J44.1 - Chronic obstructive pulmonary disease with (acute) exacerbation (2) Severe sepsis ICD Codes: A41.9 - Sepsis, unspecified organism; R65.20 - Severe sepsis without septic shock SNOMED: 33088156 (3) Diabetes ICD Codes: E11.9 - Type 2 diabetes mellitus without complications SNOMED: 31182613 (4) Feeding by G-tube ICD Codes: Z93.1 - Gastrostomy status SNOMED: 853996408, 392113999 (5) Aspiration pneumonia ICD Codes: J69.0 - Pneumonitis due to inhalation of food and vomit SNOMED: 688622013 Assessment/Plan: continue Levemir 8 units bid continue NISS every 6 hours Subjective ROS Limited/Unobtainable: Yes Allergies: Coded Allergies: SULFA (SULFONAMIDE ANTIBIOTICS) (Unverified Allergy, Unknown, 09/30/18) COPIED FROM UNCODED Uncoded Allergies: SULFA (Allergy, Unknown, 11/20/18) Subjective events noted glucose values are stable Item Value Date Time Bedside Blood Glucose 117 mg/dl 11/26/18 0627 Bedside Blood Glucose 147 mg/dl H 11/25/18 1711 Bedside Blood Glucose 128 mg/dl H 11/25/18 1233 Bedside Blood Glucose 139 mg/dl H 11/25/18 0912 Bedside Blood Glucose 151 mg/dl H 11/25/18 0611 Bedside Blood Glucose 147 mg/dl H 11/25/18 0008 Objective Last 24 Hour Vital Signs Date Time Temp Pulse Resp B/P (MAP) Pulse Ox O2 Delivery O2 Flow Rate FiO2 11/26/18 04:00 Room Air 11/26/18 04:00 97.8 99 20 100/52 (68) 96 11/26/18 04:00 97.0 97 137/72 (93) 98 11/26/18 04:00 Room Air 11/26/18 03:31 98 11/26/18 02:52 104 24 95 Room Air 21 11/26/18 00:00 Room Air 11/26/18 00:00 96 11/26/18 00:00 97.0 97 137/72 (93) 98 11/26/18 00:00 Room Air 11/25/18 20:00 Room Air 21 11/25/18 20:00 Room Air 11/25/18 20:00 Room Air 21 11/25/18 20:00 Room Air 11/25/18 20:00 98 Room Air 21 11/25/18 20:00 97.0 97 137/72 (93) 98 11/25/18 20:00 81 20 Room Air 21 11/25/18 19:39 94 11/25/18 17:12 97.0 103 23 127/78 (94) 96 11/25/18 16:00 97 11/25/18 16:00 Nasal Cannula 2.0 11/25/18 16:00 Room Air 11/25/18 15:26 97 11/25/18 12:00 Nasal Cannula 2.0 11/25/18 12:00 Room Air 11/25/18 12:00 97.0 90 24 114/68 (83) 98 11/25/18 12:00 88 11/25/18 08:00 97.2 95 23 104/62 (76) 97 11/25/18 08:00 Nasal Cannula 2.0 11/25/18 08:00 Room Air 11/25/18 07:59 88 Intake and Output 11/25/18 11/26/18 19:00 07:00 Intake Total 655 ml 315 ml Output Total 355 ml Balance 655 ml -40 ml Intake Free Water 250 ml 165 ml IV Total 75 ml Tube Feeding 330 ml 150 ml Output Urine Total 355 ml Laboratory Tests 11/26/18 03:26: Sodium Level 148H, Potassium Level 3.7, Chloride Level 112H, Carbon Dioxide Level 25, Anion Gap 11, Blood Urea Nitrogen 28H, Creatinine 2.0H, Estimat Glomerular Filtration Rate , Glucose Level 121H, Calcium Level 9.2, Pro-B-Type Natriuretic Peptide 441H, Random Vancomycin Level 17.5 Height (Feet): 5 Height (Inches): 4.00 Weight (Pounds): 170 General Appearance: no apparent distress Neck: normal alignment Cardiovascular: normal rate Respiratory/Chest: lungs clear Abdomen: normal bowel sounds Pelvis: normal external exam Edema: 1+ Arm (L), 1+ Arm (R), 1+ Leg (L), 1+ Leg (R), 1+ Pedal (L), 1+ Pedal ( R), 1+ Generalized Objective Current Medications Medications (Trade) Dose Ordered Sig/Chandu Route PRN Reason Start Time Stop Time Status Last Admin Dose Admin Albuterol/ Ipratropium (Albuterol/ Ipratropium) 3 ml Q6H PRN HHN Shortness of Breath 11/25/18 01:30 11/26/18 07:29 Chlorhexidine Gluconate (Sue-Hex 2%) 1 applic DAILY@2000 TOPIC 11/25/18 20:00 12/21/18 19:59 11/25/18 20:50 Dextrose (Dextrose 50%) 25 ml Q30M PRN IV Hypoglycemia 11/24/18 23:15 12/21/18 19:44 Dextrose (Dextrose 50%) 50 ml Q30M PRN IV Hypoglycemia 11/24/18 23:15 12/21/18 19:44 Heparin Sodium (Porcine) (Heparin 5000 units/ml) 5,000 units EVERY 12 HOURS SUBQ 11/25/18 09:00 12/21/18 08:59 11/25/18 20:51 Insulin Aspart (NovoLOG) Q6HR SUBQ 11/25/18 00:00 12/21/18 11:59 11/26/18 06:27 Insulin Detemir (Levemir) 8 units BID SUBQ 11/25/18 09:00 12/21/18 19:44 11/25/18 17:10 Meropenem 500 mg/ Sodium Chloride 55 ml @ 110 mls/hr Q12H IVPB 11/25/18 04:30 11/29/18 16:29 11/26/18 04:07 Pantoprazole (Protonix) 40 mg DAILY IVP 11/25/18 09:00 12/21/18 08:59 11/25/18 09:05 Vancomycin HCl (Vanco rx to dose) 1 ea DAILY PRN MISC Per rx protocol 11/25/18 09:00 12/21/18 14:59 Vancomycin HCl/ Dextrose 275 ml @ 183.333 mls/hr NOW ONCE IVPB 11/26/18 08:00 11/26/18 09:29 Jack Bonilla MD November 26, 2018 06:35
--- NOTE | 2018-11-26 07:26 | NUR ---
HAND-OFF: Report given to Judy Whiting RN.
--- NOTE | 2018-11-26 07:41 | Nephrology Progress Note ---
Assessment/Plan Assessment/Plan: A/P 1. NAOMY secondary to multifactorial ATN from ischemia/vol depletion and proximal tubule injury from inflammatory cytokines due to sepsis. - Cr and BUN stable. Monitor Vanc levels 2. Septic shock. Blood and urine Cxs +ve -Antibiotics per ID 3. Severe volume depletion. Na 148. - free water thru PEG 4. Hypotension secondary to sepsis. Stable 5. Hypokalemia- will replace prn basis - at goal Subjective Date patient seen: November 26, 2018 Time patient seen: 07:40 ROS Limited/Unobtainable: Yes Allergies: Coded Allergies: SULFA (SULFONAMIDE ANTIBIOTICS) (Unverified Allergy, Unknown, 09/30/18) COPIED FROM UNCODED Uncoded Allergies: SULFA (Allergy, Unknown, 11/20/18) Subjective Patient seemingly more awake, trying to talk. No acute agitation Objective Last 24 Hour Vital Signs Date Time Temp Pulse Resp B/P (MAP) Pulse Ox O2 Delivery O2 Flow Rate FiO2 11/26/18 04:00 Room Air 11/26/18 04:00 97.8 99 20 100/52 (68) 96 11/26/18 04:00 97.0 97 137/72 (93) 98 11/26/18 04:00 Room Air 11/26/18 03:31 98 11/26/18 02:52 104 24 95 Room Air 11/26/18 00:00 Room Air 11/26/18 00:00 96 11/26/18 00:00 97.0 97 137/72 (93) 98 11/26/18 00:00 Room Air 11/25/18 20:00 Room Air 11/25/18 20:00 Room Air 11/25/18 20:00 Room Air 21 11/25/18 20:00 Room Air 11/25/18 20:00 98 Room Air 11/25/18 20:00 97.0 97 137/72 (93) 98 11/25/18 20:00 81 20 Room Air 11/25/18 19:39 94 11/25/18 17:12 97.0 103 23 127/78 (94) 96 11/25/18 16:00 97 11/25/18 16:00 Nasal Cannula 2.0 11/25/18 16:00 Room Air 11/25/18 15:26 97 11/25/18 12:00 Nasal Cannula 2.0 11/25/18 12:00 Room Air 11/25/18 12:00 97.0 90 24 114/68 (83) 98 11/25/18 12:00 88 11/25/18 08:00 97.2 95 23 104/62 (76) 97 11/25/18 08:00 Nasal Cannula 2.0 11/25/18 08:00 Room Air 11/25/18 07:59 88 Intake and Output 11/25/18 11/26/18 19:00 07:00 Intake Total 655 ml 370 ml Output Total 355 ml Balance 655 ml 15 ml Intake Free Water 250 ml 165 ml IV Total 75 ml 55 ml Tube Feeding 330 ml 150 ml Output Urine Total 355 ml # Bowel Movements 2 Laboratory Tests 11/26/18 03:26: Sodium Level 148H, Potassium Level 3.7, Chloride Level 112H, Carbon Dioxide Level 25, Anion Gap 11, Blood Urea Nitrogen 28H, Creatinine 2.0H, Estimat Glomerular Filtration Rate , Glucose Level 121H, Calcium Level 9.2, Pro-B-Type Natriuretic Peptide 441H, Random Vancomycin Level 17.5 Height (Feet): 5 Height (Inches): 4.00 Weight (Pounds): 170 General Appearance: no apparent distress EENT: normal ENT inspection Neck: normal alignment, supple Cardiovascular: normal rate, regular rhythm Respiratory/Chest: rhonchi - bilaterally Abdomen: non tender, soft Edema: no edema noted Arm (L), no edema noted Arm (R), no edema noted Leg (L), no edema noted Leg (R), no edema noted Pedal (L), no edema noted Pedal (R), no edema noted Generalized Jakub García MD November 26, 2018 07:41
[2018-11-26 08:00] VITALS: BP 100/58
[2018-11-26] MEDS ORDERED: Vancomycin 1.25gm Premix IVPB ONE (08:00)
--- NOTE | 2018-11-26 08:15 | NUR ---
NURSE NOTES: received pt in the bed, awake, confused, combative, vital signs stable, no co pain, no SOB, skin warm and dry to touch, Scales catheter with yellow urine, TLC on RT jugular, dressing dry and intact, tolerate GT feeding well, bed in low position, HOB elevated.
[2018-11-26] MEDS: Pantoprazole Inj IVP SCH (08:25)
[2018-11-26] MEDS: Heparin 5000 units/ml inj SUBQ SCH ×2 (08:27→21:32)
[2018-11-26] MEDS: Levemir Flexpen SUBQ SCH ×2 (08:28→18:04)
--- NOTE | 2018-11-26 09:01 | Pulmonology Progress Note ---
Assessment/Plan Assessment/Plan IMPRESSION: 1. Sepsis and bacteremia. 2. UTI. 3. COPD. 4. Diabetes mellitus. 5. Chronic G-tube. 6. Dementia. 7. Severe hypernatremia. 8. Acute renal failure. 9. Anemia; improved after prbc DISCUSSION: 1. Septic shock. Continue broad-spectrum antibiotics. Sent urine, sputum, and blood cultures. 2. Decubitus. I will initiate wound care. At this time, no further intervention required. 3. Enteral feedings. I will resume enteral feedings and also continue Protonix. 4. DVT prophylaxis. Continue heparin subcu. 5. Hypernatremia. Continue hypotonic fluid. Appreciate nephrology consult. 6. Diabetes mellitus. Continue insulin sliding scale. Seen by endocrinology. 7. COPD. Continue oxygen. 8. Hypertension. 9. Metabolic encephalopathy. The patient is a Full Code. Discussed with nursing staff. The patient has a POLST. I will follow carefully. Maxim East MD Subjective Interval Events: Looking better Constitutional: Reports: no symptoms HEENT: Repors: no symptoms Respiratory: Reports: no symptoms Cardiovascular: Reports: no symptoms Gastrointestinal/Abdominal: Reports: no symptoms Genitourinary: Reports: no symptoms Allergies: Coded Allergies: SULFA (SULFONAMIDE ANTIBIOTICS) (Unverified Allergy, Unknown, 09/30/18) COPIED FROM UNCODED Uncoded Allergies: SULFA (Allergy, Unknown, 11/20/18) Objective Last 24 Hour Vital Signs Date Time Temp Pulse Resp B/P (MAP) Pulse Ox O2 Delivery O2 Flow Rate FiO2 11/26/18 08:31 100 20 Room Air 11/26/18 08:30 95 Room Air 11/26/18 04:00 Room Air 11/26/18 04:00 97.8 99 20 100/52 (68) 96 11/26/18 04:00 97.0 97 137/72 (93) 98 11/26/18 04:00 Room Air 11/26/18 03:31 98 11/26/18 02:52 104 24 95 Room Air 21 11/26/18 00:00 Room Air 11/26/18 00:00 96 11/26/18 00:00 97.0 97 137/72 (93) 98 11/26/18 00:00 Room Air 11/25/18 20:00 Room Air 21 11/25/18 20:00 Room Air 11/25/18 20:00 Room Air 21 11/25/18 20:00 Room Air 11/25/18 20:00 98 Room Air 21 11/25/18 20:00 97.0 97 137/72 (93) 98 11/25/18 20:00 81 20 Room Air 21 11/25/18 19:39 94 11/25/18 17:12 97.0 103 23 127/78 (94) 96 11/25/18 16:00 97 11/25/18 16:00 Nasal Cannula 2.0 11/25/18 16:00 Room Air 11/25/18 15:26 97 11/25/18 12:00 Nasal Cannula 2.0 11/25/18 12:00 Room Air 11/25/18 12:00 97.0 90 24 114/68 (83) 98 11/25/18 12:00 88 Intake and Output 11/25/18 11/26/18 19:00 07:00 Intake Total 655 ml 370 ml Output Total 355 ml Balance 655 ml 15 ml Intake Free Water 250 ml 165 ml IV Total 75 ml 55 ml Tube Feeding 330 ml 150 ml Output Urine Total 355 ml # Bowel Movements 2 General Appearance: no acute distress HEENT: normocephalic Respiratory/Chest: chest wall non-tender, lungs clear Cardiovascular: normal peripheral pulses, normal rate Abdomen: normal bowel sounds Laboratory Tests 11/26/18 03:26: Sodium Level 148H, Potassium Level 3.7, Chloride Level 112H, Carbon Dioxide Level 25, Anion Gap 11, Blood Urea Nitrogen 28H, Creatinine 2.0H, Estimat Glomerular Filtration Rate , Glucose Level 121H, Calcium Level 9.2, Pro-B-Type Natriuretic Peptide 441H, Random Vancomycin Level 17.5 Current Medications Medications (Trade) Dose Ordered Sig/Chandu Route PRN Reason Start Time Stop Time Status Last Admin Dose Admin Chlorhexidine Gluconate (Sue-Hex 2%) 1 applic DAILY@1999 TOPIC 11/25/18 20:00 12/21/18 19:59 11/25/18 20:50 Dextrose (Dextrose 50%) 25 ml Q30M PRN IV Hypoglycemia 11/24/18 23:15 12/21/18 19:44 Dextrose (Dextrose 50%) 50 ml Q30M PRN IV Hypoglycemia 11/24/18 23:15 12/21/18 19:44 Heparin Sodium (Porcine) (Heparin 5000 units/ml) 5,000 units EVERY 12 HOURS SUBQ 11/25/18 09:00 12/21/18 08:59 11/26/18 08:27 Insulin Aspart (NovoLOG) Q6HR SUBQ 11/25/18 00:00 12/21/18 11:59 11/26/18 06:27 Insulin Detemir (Levemir) 8 units BID SUBQ 11/25/18 09:00 12/21/18 19:44 11/26/18 08:28 Meropenem 500 mg/ Sodium Chloride 55 ml @ 110 mls/hr Q12H IVPB 11/25/18 04:30 11/29/18 16:29 11/26/18 04:07 Pantoprazole (Protonix) 40 mg DAILY IVP 11/25/18 09:00 12/21/18 08:59 11/26/18 08:25 Vancomycin HCl (Vanco rx to dose) 1 ea DAILY PRN MISC Per rx protocol 11/25/18 09:00 12/21/18 14:59 Vancomycin HCl/ Dextrose 275 ml @ 183.333 mls/hr NOW ONCE IVPB 11/26/18 08:00 11/26/18 09:29 11/26/18 08:25 Maxim East MD November 26, 2018 09:01
[2018-11-26] MEDS ORDERED: Tubing IV Secondary IV ONE ×2 (09:38→09:43)
[2018-11-26] MEDS ORDERED: Tubing Blood Filter IV ONE (09:43)
[2018-11-26] MEDS ORDERED: D5W 275ml ONE (09:43)
[2018-11-26] MEDS ORDERED: NS 275ml ONE ×2 (09:43→09:44)
--- NOTE | 2018-11-26 10:28 | NUR ---
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 PNA VS: BP 100/52, P 104, T 97.0, RR 24, SpO2 95 Na 148, BUN 28, CR 2.0 IS:LEVEMIR SUBQ HEPARIN SUBQ VANCOMYCIN 275ml IVPB NOVOLOG SUBQ MEROPENEM 55ml IVPB SDU STATUS
--- NOTE | 2018-11-26 11:10 | NUR ---
*-* INSURANCE *-* UPDATED CLINICALS AND REVIEWS HAVE BEEN FAXED TO: AUTH# [id number]* NCM: PETRA P:[phone] EXT [id number] F:[phone] FAX CLINICALS
[2018-11-26 12:00] VITALS: BP 115/64
--- NOTE | 2018-11-26 14:06 | NUR ---
NURSE NOTES: vital signs stable, tolerate feeding well, bed bath given, repositioned, continue monitoring.
--- NOTE | 2018-11-26 15:49 | Infectious Diseases Prog Note ---
Assessment/Plan Assessment/Plan ASSESSMENT AND PLAN: 1. 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 endocarditis - meropenem x 5 days more - vancomycin iv x 2 weeks more then po doxycycline x 10 days - TTE - no vegetation described - surveillance blood cultures - negative - monitor labs 2. Hypernatremia. 3. Elevated creatinine, herberth 4. Anemia. 5. Diabetes. 6. Hypertension. 7. Dysphagia, G-tube. 8. Blood sugar and blood pressure treatment, diabetes and hypertension per primary. 9. COPD. 10. CHF. 11. Gastroesophageal reflux disease. 12. Peptic ulcer disease. 13. Osteoarthrosis. 14. History of encephalopathy and dementia. 15. Continue treatment per primary consultants for other medical problems. 16. Allergies to sulfa. 17. Social history is negative. 18. Family history is noncontributory. 19. MAR was noted. 20. Case was discussed with RN. 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 Subjective Constitutional: Reports: fatigue; Denies: fever HEENT: Reports: congestion - less Respiratory: Denies: shortness of breath Cardiovascular: Denies: chest pain Gastrointestinal/Abdominal: Denies: nausea, vomiting, diarrhea Genitourinary: Reports: other - + cruz Neurologic: Denies: headache Psychiatric: Denies: depression Skin: Denies: rash Hematologic: Denies: bleeding Musculoskeletal: Denies: pain Allergies: Coded Allergies: SULFA (SULFONAMIDE ANTIBIOTICS) (Unverified Allergy, Unknown, 09/30/18) COPIED FROM UNCODED Uncoded Allergies: SULFA (Allergy, Unknown, 11/20/18) Objective Vital Signs Last 24 Hour Vital Signs Date Time Temp Pulse Resp B/P (MAP) Pulse Ox O2 Delivery O2 Flow Rate FiO2 11/26/18 12:00 97.5 98 24 115/64 (81) 97 11/26/18 12:00 101 11/26/18 12:00 Room Air 11/26/18 12:00 Room Air 11/26/18 08:31 Room Air 21 11/26/18 08:31 100 20 Room Air 21 11/26/18 08:30 95 Room Air 21 11/26/18 08:00 100 11/26/18 08:00 Room Air 11/26/18 08:00 97.5 102 26 100/58 (72) 97 11/26/18 04:00 Room Air 11/26/18 04:00 97.8 99 20 100/52 (68) 96 11/26/18 04:00 97.0 97 137/72 (93) 98 11/26/18 04:00 Room Air 11/26/18 03:31 98 11/26/18 02:52 104 24 95 Room Air 21 11/26/18 00:00 Room Air 11/26/18 00:00 96 11/26/18 00:00 97.0 97 137/72 (93) 98 11/26/18 00:00 Room Air 11/25/18 20:00 Room Air 21 11/25/18 20:00 Room Air 11/25/18 20:00 Room Air 11/25/18 20:00 Room Air 11/25/18 20:00 98 Room Air 21 11/25/18 20:00 97.0 97 137/72 (93) 98 11/25/18 20:00 81 20 Room Air 21 11/25/18 19:39 94 11/25/18 17:12 97.0 103 23 127/78 (94) 96 11/25/18 16:00 97 11/25/18 16:00 Nasal Cannula 2.0 11/25/18 16:00 Room Air Height (Feet): 5 Height (Inches): 4.00 Weight (Pounds): 170 General Appearance: no acute distress HEENT: normocephalic, atraumatic, anicteric, mucous membranes moist Respiratory/Chest: crackles/rales, rhonchi - bilaterally Cardiovascular: normal rate, regular rhythm, no gallop/murmur, no JVD Abdomen: normal bowel sounds, soft, non tender, no organomegaly, non distended Genitourinary: other - + cruz Extremities: no cyanosis Skin: no rash 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 The lungs are clear. No pleural effusions. The visualized osseous structures are within normal limits. Right internal jugular catheter with tip in the midsuperior vena cava. IMPRESSION: No acute cardiopulmonary disease. Right internal jugular catheter with tip in the midsuperior vena cava. Microbiology Date/Time Source Procedure Growth Status 11/23/18 04:00 Blood Blood Culture - Preliminary NO GROWTH AFTER 72 HOURS Resulted 11/20/18 18:18 Nasal Nares MRSA Culture - Final Staphylococcus Aureus - Mrsa Complete 11/20/18 16:50 Urine,Clean Catch Urine Culture - Final Escherichia Coli - Esbl#2 Escherichia Coli Complete 11/21/18 18:18 Rectum - Final NO CARBAPENEM-RESISTANT ENTEROBACTERI... Complete Labs Test 11/24/18 05:00 11/24/18 05:20 11/25/18 03:30 11/26/18 03:26 White Blood Count 10.5 K/UL (4.8-10.8) 7.8 K/UL (4.8-10.8) Red Blood Count 3.15 M/UL (4.20-5.40) 3.35 M/UL (4.20-5.40) Hemoglobin 9.5 G/DL (12.0-16.0) 10.1 G/DL (12.0-16.0) Hematocrit 29.7 % (37.0-47.0) 31.6 % (37.0-47.0) Mean Corpuscular Volume 94 FL (80-99) 94 FL (80-99) Mean Corpuscular Hemoglobin 30.1 PG (27.0-31.0) 30.3 PG (27.0-31.0) Mean Corpuscular Hemoglobin Concent 31.9 G/DL (32.0-36.0) 32.1 G/DL (32.0-36.0) Red Cell Distribution Width 18.7 % (11.6-14.8) 19.2 % (11.6-14.8) Platelet Count 131 K/UL (150-450) 132 K/UL (150-450) Mean Platelet Volume 10.1 FL (6.5-10.1) 9.5 FL (6.5-10.1) Neutrophils (%) (Auto) 72.2 % (45.0-75.0) 64.8 % (45.0-75.0) Lymphocytes (%) (Auto) 18.8 % (20.0-45.0) 24.5 % (20.0-45.0) Monocytes (%) (Auto) 7.2 % (1.0-10.0) 8.2 % (1.0-10.0) Eosinophils (%) (Auto) 1.2 % (0.0-3.0) 1.7 % (0.0-3.0) Basophils (%) (Auto) 0.5 % (0.0-2.0) 0.7 % (0.0-2.0) Sodium Level 148 MMOL/L (136-145) 148 MMOL/L (136-145) 148 MMOL/L (136-145) Potassium Level 3.5 MMOL/L (3.5-5.1) 4.0 MMOL/L (3.5-5.1) 3.7 MMOL/L (3.5-5.1) Chloride Level 114 MMOL/L (98-107) 114 MMOL/L (98-107) 112 MMOL/L (98-107) Carbon Dioxide Level 23 MMOL/L (21-32) 24 MMOL/L (21-32) 25 MMOL/L (21-32) Anion Gap 12 mmol/L (5-15) 10 mmol/L (5-15) 11 mmol/L (5-15) Blood Urea Nitrogen 25 mg/dL (7-18) 24 mg/dL (7-18) 28 mg/dL (7-18) Creatinine 1.9 MG/DL (0.55-1.30) 1.9 MG/DL (0.55-1.30) 2.0 MG/DL (0.55-1.30) Estimat Glomerular Filtration Rate mL/min (>60) mL/min (>60) mL/min (>60) Glucose Level 131 MG/DL (74-106) 168 MG/DL (74-106) 121 MG/DL (74-106) Calcium Level 8.3 MG/DL (8.5-10.1) 8.9 MG/DL (8.5-10.1) 9.2 MG/DL (8.5-10.1) Random Vancomycin Level 15.0 ug/mL 17.5 ug/mL Pro-B-Type Natriuretic Peptide 441 pg/mL (0-125) Laboratory Tests Test 11/26/18 03:26 Sodium Level 148 MMOL/L (136-145) H Potassium Level 3.7 MMOL/L (3.5-5.1) Chloride Level 112 MMOL/L (98-107) H Carbon Dioxide Level 25 MMOL/L (21-32) Anion Gap 11 mmol/L (5-15) Blood Urea Nitrogen 28 mg/dL (7-18) H Creatinine 2.0 MG/DL (0.55-1.30) H Estimat Glomerular Filtration Rate mL/min (>60) Glucose Level 121 MG/DL (74-106) H Calcium Level 9.2 MG/DL (8.5-10.1) Pro-B-Type Natriuretic Peptide 441 pg/mL (0-125) H Random Vancomycin Level 17.5 ug/mL Current Medications Medications (Trade) Dose Ordered Sig/Chandu Route PRN Reason Start Time Stop Time Status Last Admin Dose Admin Chlorhexidine Gluconate (Sue-Hex 2%) 1 applic DAILY@2000 TOPIC 11/25/18 20:00 12/21/18 19:59 11/25/18 20:50 Dextrose (Dextrose 50%) 25 ml Q30M PRN IV Hypoglycemia 11/24/18 23:15 12/21/18 19:44 Dextrose (Dextrose 50%) 50 ml Q30M PRN IV Hypoglycemia 11/24/18 23:15 12/21/18 19:44 Heparin Sodium (Porcine) (Heparin 5000 units/ml) 5,000 units EVERY 12 HOURS SUBQ 11/25/18 09:00 12/21/18 08:59 11/26/18 08:27 Insulin Aspart (NovoLOG) Q6HR SUBQ 11/25/18 00:00 12/21/18 11:59 11/26/18 12:40 Insulin Detemir (Levemir) 8 units BID SUBQ 11/25/18 09:00 12/21/18 19:44 11/26/18 08:28 Meropenem 500 mg/ Sodium Chloride 55 ml @ 110 mls/hr Q12H IVPB 11/25/18 04:30 11/29/18 16:29 11/26/18 04:07 Pantoprazole (Protonix) 40 mg DAILY IVP 11/25/18 09:00 12/21/18 08:59 11/26/18 08:25 Vancomycin HCl (Vanco rx to dose) 1 ea DAILY PRN MISC Per rx protocol 11/25/18 09:00 12/21/18 14:59 Vancomycin HCl/ Dextrose 275 ml @ 183.333 mls/hr Q48H IVPB 11/28/18 08:00 12/03/18 07:59 Blanca Leigh MD November 26, 2018 15:49
[2018-11-26 16:00] VITALS: BP 102/56
--- NOTE | 2018-11-26 19:14 | NUR ---
HAND-OFF: Report given to COLEEN DUNCAN.
--- NOTE | 2018-11-26 19:15 | NUR ---
HAND-OFF: Report given to Jim Villareal RN.
--- NOTE | 2018-11-26 19:15 | NUR ---
NURSE NOTES: Received patient from DAKOTA Whaley from [facility]. Patient in bed awake showing no signs of acute distress. Respiration even and non labored. No Sob noted. Triple lumen on jugular vein patent and intact. Bed in lowest position. Bed alarm on, and wheels locked. Call light within reach. All needs attended and met. Will continue plan of care.
--- NOTE | 2018-11-26 19:15 | NUR ---
NURSE NOTES: Received patient from Judy Whiting RN. Patient is awake and has no signs of distress. Preparing to transfer patient to telemetry.
[2018-11-26 20:00] VITALS: BP 126/68
[2018-11-26] MEDS: Dyna-Hex 2% Top Sol 2oz TOPIC SCH (21:26)
[2018-11-27] VITALS: BP 123/69
[2018-11-27] MEDS: NovoLOG Insulin Flexpen SUBQ SCH ×5 (01:13→23:07)
[2018-11-27 04:00] VITALS: BP 123/68
--- NOTE | 2018-11-27 04:00 | Progress Note ---
DATE: 11/26/2018 CARDIOLOGY PROGRESS NOTE SUBJECTIVE: The patient remains on antimicrobials. Echocardiogram discussed with Dr. Leigh and no vegetation is inspected. Low likelihood for endocarditis from cardiovascular criteria. OBJECTIVE: VITAL SIGNS: Blood pressure 115/64, pulse 98, and respirations 24. Monitor, sinus tachycardia. LUNGS: Diminished breath sounds. No wheezes. HEART: Regular rhythm and rate. Normal S1, S2. ABDOMEN: Obese and soft. EXTREMITIES: No edema. LABORATORY DATA: White count 7.8 and hemoglobin 10.1. Sodium 148, potassium 3.7, bicarbonate 25, BUN 28, and creatinine 2. Pro-natriuretic peptide is 440. IMPRESSION: 1. Urinary tract infection with sepsis. 2. MRSA bacteremia. 3. Low likelihood for endocarditis by echocardiographic criteria. 4. Secondary sinus tachycardia. 5. COPD. 6. Dysphagia with G-tube. 7. Dehydration, hypernatremia, and hypovolemia. 8. Acute myocardial ischemia. PLAN: 1. Addition of free water replacement. 2. Antimicrobials per Infectious Disease senior science consultant. 3. DVT prophylaxis. 4. Insulin titration. 5. Restart anti-platelet therapy and statin drugs. 6. Low dose beta-daryl. Robert Cuellar M.D. DR: CASSY JOB#: [id number] CC:
[2018-11-27] MEDS: Meropenem 500 MG in NS 55 ML IVPB SCH ×2 (04:44→16:54)
--- NOTE | 2018-11-27 06:40 | General Progress Note ---
Assessment/Plan Problem List: (1) COPD (chronic obstructive pulmonary disease) ICD Codes: J44.9 - Chronic obstructive pulmonary disease, unspecified SNOMED: 80398667 Qualifiers: Qualified Codes: J44.1 - Chronic obstructive pulmonary disease with (acute) exacerbation (2) Severe sepsis ICD Codes: A41.9 - Sepsis, unspecified organism; R65.20 - Severe sepsis without septic shock SNOMED: 69832294 (3) Diabetes ICD Codes: E11.9 - Type 2 diabetes mellitus without complications SNOMED: 24233779 (4) Feeding by G-tube ICD Codes: Z93.1 - Gastrostomy status SNOMED: 957944600, 860558925 (5) Aspiration pneumonia ICD Codes: J69.0 - Pneumonitis due to inhalation of food and vomit SNOMED: 623552532 Assessment/Plan: reduce Levemir to 5 units bid continue NISS every 6 hours Subjective ROS Limited/Unobtainable: Yes Allergies: Coded Allergies: SULFA (SULFONAMIDE ANTIBIOTICS) (Unverified Allergy, Unknown, 09/30/18) COPIED FROM UNCODED Uncoded Allergies: SULFA (Allergy, Unknown, 11/20/18) Subjective events noted glucose values are stable and on low normal side Item Value Date Time Bedside Blood Glucose 109 mg/dl 11/27/18 0600 Bedside Blood Glucose 129 mg/dl H 11/27/18 0113 Bedside Blood Glucose 136 mg/dl H 11/26/18 1805 Bedside Blood Glucose 114 mg/dl 11/26/18 1240 Bedside Blood Glucose 117 mg/dl 11/26/18 0828 Bedside Blood Glucose 117 mg/dl 11/26/18 0627 Objective Last 24 Hour Vital Signs Date Time Temp Pulse Resp B/P (MAP) Pulse Ox O2 Delivery O2 Flow Rate FiO2 11/27/18 04:00 97.8 101 17 123/68 (86) 98 11/27/18 04:00 85 11/27/18 00:00 88 11/27/18 00:00 97.8 101 17 123/69 (87) 98 11/26/18 20:03 Room Air 21 11/26/18 20:03 99 Room Air 21 11/26/18 20:02 95 20 Room Air 21 11/26/18 20:00 Room Air 11/26/18 20:00 100 11/26/18 20:00 97.7 102 17 126/68 (87) 99 11/26/18 16:00 Room Air 11/26/18 16:00 98 11/26/18 16:00 97.5 101 24 102/56 (71) 97 11/26/18 12:00 97.5 98 24 115/64 (81) 97 11/26/18 12:00 101 11/26/18 12:00 Room Air 11/26/18 12:00 Room Air 11/26/18 08:31 Room Air 21 11/26/18 08:31 100 20 Room Air 21 11/26/18 08:30 95 Room Air 21 11/26/18 08:00 100 11/26/18 08:00 Room Air 11/26/18 08:00 97.5 102 26 100/58 (72) 97 Intake and Output 11/26/18 11/27/18 18:59 06:59 Intake Total 715 ml Output Total 1500 ml Balance -785 ml Intake Free Water 300 ml IV Total 55 ml Tube Feeding 360 ml Output Urine Total 1500 ml # Bowel Movements 5 Height (Feet): 5 Height (Inches): 4.00 Weight (Pounds): 170 General Appearance: no apparent distress Neck: normal alignment Cardiovascular: normal rate Respiratory/Chest: decreased breath sounds Abdomen: normal bowel sounds Pelvis: normal external exam Edema: no edema noted Arm (L), no edema noted Arm (R), no edema noted Leg (L), no edema noted Leg (R), no edema noted Pedal (L), no edema noted Pedal (R), no edema noted Generalized Objective Current Medications Medications (Trade) Dose Ordered Sig/Chandu Route PRN Reason Start Time Stop Time Status Last Admin Dose Admin Aspirin (ASA) 81 mg DAILY GT 11/27/18 09:00 12/27/18 08:59 Atorvastatin Calcium (Lipitor) 10 mg BEDTIME GT 11/27/18 21:00 12/27/18 20:59 Chlorhexidine Gluconate (Sue-Hex 2%) 1 applic DAILY@2000 TOPIC 11/26/18 20:00 12/21/18 19:59 11/26/18 21:26 Dextrose (Dextrose 50%) 25 ml Q30M PRN IV Hypoglycemia 11/26/18 19:15 12/21/18 19:44 Dextrose (Dextrose 50%) 50 ml Q30M PRN IV Hypoglycemia 11/26/18 19:15 12/21/18 19:44 Heparin Sodium (Porcine) (Heparin 5000 units/ml) 5,000 units EVERY 12 HOURS SUBQ 11/26/18 21:00 12/21/18 08:59 11/26/18 21:32 Insulin Aspart (NovoLOG) Q6HR SUBQ 11/27/18 00:00 12/21/18 11:59 11/27/18 01:13 Insulin Detemir (Levemir) 8 units BID SUBQ 11/27/18 09:00 12/21/18 19:44 Meropenem 500 mg/ Sodium Chloride 55 ml @ 110 mls/hr Q12H IVPB 11/27/18 04:30 11/29/18 16:29 11/27/18 04:44 Metoprolol Tartrate (Lopressor) 25 mg Q12HR GT 11/27/18 09:00 12/27/18 08:59 Pantoprazole (Protonix) 40 mg DAILY IVP 11/27/18 09:00 12/21/18 08:59 Vancomycin HCl (Vanco rx to dose) 1 ea DAILY PRN MISC Per rx protocol 11/27/18 09:00 12/21/18 14:59 Vancomycin HCl/ Dextrose 275 ml @ 183.333 mls/hr Q48H IVPB 11/28/18 08:00 12/03/18 07:59 Jack Bonilla MD November 27, 2018 06:40
[2018-11-27 07:43] LABS: HEMATOCRIT 21.4 % (37.0-47.0); MEAN CORPUSCULAR VOLUME 96 FL (80-99); PLATELET COUNT 94 K/UL (150-450); RED BLOOD COUNT 2.22 M/UL (4.20-5.40); RED CELL DISTRIBUTION WIDTH 18.6 % (11.6-14.8)
--- NOTE | 2018-11-27 07:51 | NUR ---
HAND-OFF: Report given to DAKOTA Chery.
[2018-11-27 07:55] LABS: HEMOGLOBIN 6.7 G/DL (12.0-16.0)
[2018-11-27 08:00] VITALS: BP 127/73
[2018-11-27 08:00] LABS: ANION GAP 11 mmol/L (5-15); BLOOD UREA NITROGEN 31 mg/dL (7-18); CALCIUM 8.9 MG/DL (8.5-10.1); CARBON DIOXIDE 25 MMOL/L (21-32); CHLORIDE 114 MMOL/L (98-107); CREATININE 1.9 MG/DL (0.55-1.30); POTASSIUM 3.7 MMOL/L (3.5-5.1); SODIUM 150 MMOL/L (136-145)
--- NOTE | 2018-11-27 08:08 | NUR ---
NURSE NOTES: Pt in bed in lowest position, bed alarm on, call light within reach, pt nonverbal, HOB >30 as pt has Gtube running, IJ R side running, asymptomatic. Addendum: 11/27/18 at 0811 by TRISTEN GIFFORD RN no S/S of distress or SOB noted, pt will require to be turned Q2 hr.
--- NOTE | 2018-11-27 08:28 | Nephrology Progress Note ---
Assessment/Plan Assessment/Plan: A/P 1. NAOMY secondary to multifactorial ATN from ischemia/vol depletion and proximal tubule injury from inflammatory cytokines due to sepsis. -Cr stable at 1.9 2. Septic shock. Blood and urine Cxs +ve, Antibiotics per ID 3. Severe volume depletion. Na up to 150. Restart D5W - free water thru PEG 4. Anemia- Hgb 6.7. Transfuse 2 Units PRBC 5. Hypokalemia- will replace prn basis Subjective Date patient seen: November 27, 2018 Time patient seen: 08:25 ROS Limited/Unobtainable: Yes Allergies: Coded Allergies: SULFA (SULFONAMIDE ANTIBIOTICS) (Unverified Allergy, Unknown, 09/30/18) COPIED FROM UNCODED Uncoded Allergies: SULFA (Allergy, Unknown, 11/20/18) Subjective Patient somnolent but arousable Objective Last 24 Hour Vital Signs Date Time Temp Pulse Resp B/P (MAP) Pulse Ox O2 Delivery O2 Flow Rate FiO2 11/27/18 08:21 98 Room Air 21 11/27/18 08:21 Room Air 21 11/27/18 08:21 88 18 Room Air 11/27/18 04:00 97.8 101 17 123/68 (86) 98 11/27/18 04:00 85 11/27/18 00:00 88 11/27/18 00:00 97.8 101 17 123/69 (87) 98 11/26/18 20:03 Room Air 11/26/18 20:03 99 Room Air 11/26/18 20:02 95 20 Room Air 11/26/18 20:00 Room Air 11/26/18 20:00 100 11/26/18 20:00 97.7 102 17 126/68 (87) 99 11/26/18 16:00 Room Air 11/26/18 16:00 98 11/26/18 16:00 97.5 101 24 102/56 (71) 97 11/26/18 12:00 97.5 98 24 115/64 (81) 97 11/26/18 12:00 101 11/26/18 12:00 Room Air 11/26/18 12:00 Room Air 11/26/18 08:31 Room Air 21 11/26/18 08:31 100 20 Room Air 21 5/6/19 08:30 95 Room Air 21 Intake and Output 11/26/18 11/27/18 18:59 06:59 Intake Total 715 ml Output Total 1500 ml Balance -785 ml Intake Free Water 300 ml IV Total 55 ml Tube Feeding 360 ml Output Urine Total 1500 ml # Bowel Movements 5 Laboratory Tests 11/27/18 06:00: White Blood Count 5.0, Red Blood Count 2.22L, Hemoglobin 6.7*L, Hematocrit 21.4L , Mean Corpuscular Volume 96, Mean Corpuscular Hemoglobin 30.0, Mean Corpuscular Hemoglobin Concent 31.1L, Red Cell Distribution Width 18.6H, Platelet Count 94L, Mean Platelet Volume 9.8, Neutrophils (%) (Auto) , Lymphocytes (%) (Auto) , Monocytes (%) (Auto) , Eosinophils (%) (Auto) , Basophils (%) (Auto) , Neutrophils % (Manual) [Pending], Lymphocytes % (Manual) [Pending], Platelet Estimate [Pending], Platelet Morphology [Pending], Sodium Level 150H, Potassium Level 3.7, Chloride Level 114H, Carbon Dioxide Level 25, Anion Gap 11, Blood Urea Nitrogen 31H, Creatinine 1.9H, Estimat Glomerular Filtration Rate , Glucose Level 105, Calcium Level 8.9 Height (Feet): 5 Height (Inches): 4.00 Weight (Pounds): 181 General Appearance: no apparent distress EENT: normal ENT inspection Neck: normal alignment, supple Cardiovascular: normal rate, regular rhythm Respiratory/Chest: rhonchi - bilaterally Abdomen: non tender, soft Edema: no edema noted Arm (L), no edema noted Arm (R), no edema noted Leg (L), no edema noted Leg (R), no edema noted Pedal (L), no edema noted Pedal (R), no edema noted Generalized Jakub García MD November 27, 2018 08:28
--- NOTE | 2018-11-27 08:49 | NUR ---
NURSE NOTES: contacted Cruzito regarding low blood levels. stated to give 2 units of blood
[2018-11-27] MEDS: Heparin 5000 units/ml inj SUBQ SCH ×2 (09:00→20:40)
[2018-11-27] MEDS ORDERED: Levemir Flexpen SUBQ SCH (09:00)
[2018-11-27] MEDS: Aspirin Baby 81mg GT SCH (10:15)
[2018-11-27] MEDS: Metoprolol 25mg tab GT SCH ×2 (10:16→20:44)
[2018-11-27] MEDS: Pantoprazole Inj IVP SCH (10:17)
--- NOTE | 2018-11-27 10:17 | NUR ---
*-* INSURANCE *-* UPDATED CLINICALS HAVE BEEN FAXED TO: AUTH# [id number]* NCM: PETRA P:[phone] [address]T [facility] F:[phone] FAX CLINICALS
[2018-11-27] MEDS: Levemir Flexpen SUBQ SCH ×2 (10:19→18:00)
[2018-11-27 12:00] VITALS: BP 109/60
--- NOTE | 2018-11-27 13:35 | Pulmonology Progress Note ---
Assessment/Plan Assessment/Plan IMPRESSION: 1. Sepsis and bacteremia. 2. UTI. 3. COPD. 4. Diabetes mellitus. 5. Chronic G-tube. 6. Dementia. 7. Severe hypernatremia. 8. Acute renal failure. 9. Anemia; improved after prbc DISCUSSION: 1. Septic shock. Continue broad-spectrum antibiotics. Sent urine, sputum, and blood cultures. 2. Decubitus. I will initiate wound care. At this time, no further intervention required. 3. Enteral feedings. I will resume enteral feedings and also continue Protonix. 4. DVT prophylaxis. Continue heparin subcu. 5. Hypernatremia. Continue hypotonic fluid. Appreciate nephrology consult. 6. Diabetes mellitus. Continue insulin sliding scale. Seen by endocrinology. 7. COPD. Continue oxygen. 8. Hypertension. 9. Metabolic encephalopathy. 10. Will consult GI for recurrent drop in Hgb The patient is a Full Code. Discussed with nursing staff. The patient has a POLST. I will follow carefully. Maxim East MD Subjective Interval Events: Hgb dropped again; to be transfused Constitutional: Reports: no symptoms HEENT: Repors: no symptoms Respiratory: Reports: no symptoms Cardiovascular: Reports: no symptoms Gastrointestinal/Abdominal: Reports: no symptoms Genitourinary: Reports: no symptoms Neurologic: Reports: no symptoms Allergies: Coded Allergies: SULFA (SULFONAMIDE ANTIBIOTICS) (Unverified Allergy, Unknown, 09/30/18) COPIED FROM UNCODED Uncoded Allergies: SULFA (Allergy, Unknown, 11/20/18) Objective Last 24 Hour Vital Signs Date Time Temp Pulse Resp B/P (MAP) Pulse Ox O2 Delivery O2 Flow Rate FiO2 11/27/18 10:16 88 127/73 11/27/18 09:03 Room Air 11/27/18 08:21 98 Room Air 21 11/27/18 08:21 Room Air 21 11/27/18 08:21 88 18 Room Air 21 11/27/18 08:00 97.9 98 18 127/73 (91) 11/27/18 07:55 95 11/27/18 04:00 97.8 101 17 123/68 (86) 98 11/27/18 04:00 85 11/27/18 00:00 88 11/27/18 00:00 97.8 101 17 123/69 (87) 98 11/26/18 20:03 Room Air 21 11/26/18 20:03 99 Room Air 21 11/26/18 20:02 95 20 Room Air 21 11/26/18 20:00 Room Air 11/26/18 20:00 100 11/26/18 20:00 97.7 102 17 126/68 (87) 99 11/26/18 16:00 Room Air 11/26/18 16:00 98 11/26/18 16:00 97.5 101 24 102/56 (71) 97 Intake and Output 11/26/18 11/27/18 19:00 07:00 Intake Total 685 ml 30 ml Output Total 1500 ml 50 ml Balance -815 ml -20 ml Intake Free Water 300 ml IV Total 55 ml Tube Feeding 330 ml 30 ml Output Urine Total 1500 ml 50 ml # Bowel Movements 5 1 General Appearance: no acute distress HEENT: normocephalic Respiratory/Chest: chest wall non-tender, lungs clear Cardiovascular: normal peripheral pulses, normal rate Abdomen: normal bowel sounds, soft, non tender Extremities: no cyanosis Laboratory Tests 11/27/18 06:00: White Blood Count 5.0, Red Blood Count 2.22L, Hemoglobin 6.7*L, Hematocrit 21.4L , Mean Corpuscular Volume 96, Mean Corpuscular Hemoglobin 30.0, Mean Corpuscular Hemoglobin Concent 31.1L, Red Cell Distribution Width 18.6H, Platelet Count 94L, Mean Platelet Volume 9.8, Neutrophils (%) (Auto) , Lymphocytes (%) (Auto) , Monocytes (%) (Auto) , Eosinophils (%) (Auto) , Basophils (%) (Auto) , Differential Total Cells Counted 100, Neutrophils % ( Manual) 60, Lymphocytes % (Manual) 28, Monocytes % (Manual) 10, Eosinophils % ( Manual) 1, Basophils % (Manual) 1, Band Neutrophils 0, Platelet Estimate DecreasedL, Platelet Morphology Normal, Hypochromasia 4+, Anisocytosis 2+, Sodium Level 150H, Potassium Level 3.7, Chloride Level 114H, Carbon Dioxide Level 25, Anion Gap 11, Blood Urea Nitrogen 31H, Creatinine 1.9H, Estimat Glomerular Filtration Rate , Glucose Level 105, Calcium Level 8.9 Current Medications Medications (Trade) Dose Ordered Sig/Chandu Route PRN Reason Start Time Stop Time Status Last Admin Dose Admin Aspirin (ASA) 81 mg DAILY GT 11/27/18 09:00 12/27/18 08:59 11/27/18 10:15 Atorvastatin Calcium (Lipitor) 10 mg BEDTIME GT 11/27/18 21:00 12/27/18 20:59 Chlorhexidine Gluconate (Sue-Hex 2%) 1 applic DAILY@2000 TOPIC 11/26/18 20:00 12/21/18 19:59 11/26/18 21:26 Dextrose 1,000 ml @ 75 mls/hr [id number] IV 11/27/18 08:30 12/27/18 08:29 Dextrose (Dextrose 50%) 25 ml Q30M PRN IV Hypoglycemia 11/26/18 19:15 12/21/18 19:44 Dextrose (Dextrose 50%) 50 ml Q30M PRN IV Hypoglycemia 11/26/18 19:15 12/21/18 19:44 Heparin Sodium (Porcine) (Heparin 5000 units/ml) 5,000 units EVERY 12 HOURS SUBQ 11/26/18 21:00 12/21/18 08:59 11/26/18 21:32 Insulin Aspart (NovoLOG) Q6HR SUBQ 11/27/18 00:00 12/21/18 11:59 11/27/18 01:13 Insulin Detemir (Levemir) 5 units BID SUBQ 11/27/18 09:00 12/21/18 19:44 11/27/18 10:19 Meropenem 500 mg/ Sodium Chloride 55 ml @ 110 mls/hr Q12H IVPB 11/27/18 04:30 11/29/18 16:29 11/27/18 04:44 Metoprolol Tartrate (Lopressor) 25 mg Q12HR GT 11/27/18 09:00 12/27/18 08:59 11/27/18 10:16 Pantoprazole (Protonix) 40 mg DAILY IVP 11/27/18 09:00 12/21/18 08:59 11/27/18 10:17 Vancomycin HCl (Vanco rx to dose) 1 ea DAILY PRN MISC Per rx protocol 11/27/18 09:00 12/21/18 14:59 Vancomycin HCl/ Dextrose 275 ml @ 183.333 mls/hr Q48H IVPB 11/28/18 08:00 12/03/18 07:59 Maxim East MD November 27, 2018 13:35
[2018-11-27 16:00] VITALS: BP 119/72
--- NOTE | 2018-11-27 16:18 | NUR ---
DIGITAL COMMENTATOR RE SI: SEPTIC SHOCK . UTI VS: BP 109/60, P 92, T 97.5, RR 18, SpO2 98 RBC 2.22, H&H 6.7/21.4, Na 150, BUN 31, CR 1.9 IS: LEVEMIR SUBQ LOPRESSOR 25mg MEROPENEM 55ml IVPB TELE STATUS
--- NOTE | 2018-11-27 19:05 | NUR ---
NURSE NOTES: Pt report received from Vik DUNCAN. Pt appears to be in stable conditions as she is resting comfortably in bed. Pt neuro assessment is alert and oriented times 1. Pt has a business support placed, active and working with no signs or symptoms of acute cardiac distress noted. Pt is on Room Air saturating at 99% with no signs of symptoms of acute respiratory distress noted. Pt has a Right internal Jugular Tripple lumen central line (20G) that is able to flush with no abnormalities noted. Pt has a G tube running Glucerna 1.2 patent and able to flush, no abnormalities noted. Pt has a Scales cath that is intact and draining to gravity, no abnormalities noted. All safety precautions are in place, such as bed is in lowest position, bed alarm active, bed rails are up times 3, call light is within easy reach. Will continue plan of care.
--- NOTE | 2018-11-27 19:23 | NUR ---
HAND-OFF: Report given to John Renteria.
[2018-11-27 20:00] VITALS: BP 133/77
[2018-11-27] MEDS: Dyna-Hex 2% Top Sol 2oz TOPIC SCH (20:44)
[2018-11-28] VITALS: BP 110/56
[2018-11-28] MEDS ORDERED: Sorbitol Solution UD 30ml ORAL ONE (00:45)
--- NOTE | 2018-11-28 03:15 | Progress Note ---
DATE: 11/27/2018 CARDIOLOGY PROGRESS NOTE SUBJECTIVE: Blood pressure remains stable. The patient continued on IV fluid hydration. Remains with electrolyte abnormalities. Blood counts are decreasing. Transfusions are planned. Monitor sinus arrhythmia with PACs. OBJECTIVE: GENERAL: Somnolent, but arousable. VITAL SIGNS: Blood pressure 123/68, heart rate 85 to 101, respiratory 17, and afebrile. LUNGS: Bilateral breath sounds. HEART: Regular rhythm. Rapid rate. Normal S1 and S2. ABDOMEN: Soft. EXTREMITIES: Trace dependent edema. LABORATORY DATA: White count 5 and hemoglobin 6.7. Sodium 150, potassium 3.7, bicarbonate 25, BUN 31, and creatinine 1.9. IMPRESSION: 1. Sepsis with shock, recovered. 2. Acute renal failure, improved. 3. Dehydration. 4. Hyponatremia. 5. Hyperchloremia. 6. Hypovolemia. 7. Severe anemia due to chronic disease and chronic kidney disease. 8. Paroxysmal atrial ectopy. 9. MRSA bacteremia. 10. Low likelihood for endocarditis by echocardiographic criteria. 11. Resolved myocardial ischemia. 12. Paroxysmal sinus tachycardia, appropriate for hemodynamics state. PLAN OF CARE: 1. Hypotonic intravenous fluids. 2. Packed red blood cell transfusion. 3. Antimicrobials. 4. Continue antiplatelet and statin therapy as well as beta-daryl with titration. Robert Cuellar M.D. DR: CORNELIA JOB#: [id number] CC:
[2018-11-28 04:00] VITALS: BP 107/56
[2018-11-28] MEDS: Meropenem 500 MG in NS 55 ML IVPB SCH ×2 (04:00→17:11)
[2018-11-28] MEDS: NovoLOG Insulin Flexpen SUBQ SCH ×3 (05:22→18:34)
--- NOTE | 2018-11-28 06:30 | General Progress Note ---
Assessment/Plan Problem List: (1) COPD (chronic obstructive pulmonary disease) ICD Codes: J44.9 - Chronic obstructive pulmonary disease, unspecified SNOMED: 33215159 Qualifiers: Qualified Codes: J44.1 - Chronic obstructive pulmonary disease with (acute) exacerbation (2) Severe sepsis ICD Codes: A41.9 - Sepsis, unspecified organism; R65.20 - Severe sepsis without septic shock SNOMED: 13858355 (3) Diabetes ICD Codes: E11.9 - Type 2 diabetes mellitus without complications SNOMED: 98689455 (4) Feeding by G-tube ICD Codes: Z93.1 - Gastrostomy status SNOMED: 506343660, 800200181 (5) Aspiration pneumonia ICD Codes: J69.0 - Pneumonitis due to inhalation of food and vomit SNOMED: 890782310 Assessment/Plan: change Levemir to 6 units daily continue NISS every 6 hours Subjective ROS Limited/Unobtainable: Yes Allergies: Coded Allergies: SULFA (SULFONAMIDE ANTIBIOTICS) (Unverified Allergy, Unknown, 09/30/18) COPIED FROM UNCODED Uncoded Allergies: SULFA (Allergy, Unknown, 11/20/18) Subjective events noted fair glycemic control Item Value Date Time Bedside Blood Glucose 127 mg/dl H 11/28/18 0522 Bedside Blood Glucose 131 mg/dl H 11/28/18 0000 Bedside Blood Glucose 120 mg/dl 11/27/18 1817 Bedside Blood Glucose 109 mg/dl 11/27/18 1200 Bedside Blood Glucose 109 mg/dl 11/27/18 1019 Bedside Blood Glucose 109 mg/dl 11/27/18 0600 Bedside Blood Glucose 129 mg/dl H 11/27/18 0113 Objective Last 24 Hour Vital Signs Date Time Temp Pulse Resp B/P (MAP) Pulse Ox O2 Delivery O2 Flow Rate FiO2 11/28/18 04:00 89 11/28/18 04:00 98.6 86 20 107/56 (73) 98 11/28/18 00:00 78 11/28/18 00:00 97.9 84 16 110/56 (74) 99 11/27/18 21:00 Room Air 11/27/18 20:44 93 133/77 11/27/18 20:00 98.0 93 17 133/77 (95) 99 11/27/18 20:00 79 11/27/18 16:00 97.5 74 16 119/72 (88) 98 11/27/18 15:14 78 11/27/18 13:22 87 11/27/18 12:00 98.0 92 18 109/60 (76) 97 11/27/18 10:16 88 127/73 11/27/18 09:03 Room Air 11/27/18 08:21 98 Room Air 21 11/27/18 08:21 Room Air 21 11/27/18 08:21 88 18 Room Air 21 11/27/18 08:00 97.9 98 18 127/73 (91) 11/27/18 07:55 95 Intake and Output 11/27/18 11/28/18 18:59 06:59 Intake Total 730 ml 1355 ml Output Total 1200 ml Balance -470 ml 1355 ml Intake Free Water 400 ml 400 ml IV Total 655 ml Tube Feeding 330 ml 300 ml Output Urine Total 1200 ml Height (Feet): 5 Height (Inches): 4.00 Weight (Pounds): 181 General Appearance: no apparent distress Neck: normal alignment Cardiovascular: normal rate Respiratory/Chest: decreased breath sounds Abdomen: normal bowel sounds Pelvis: normal external exam Edema: 1+ Arm (L), 1+ Arm (R), 1+ Leg (L), 1+ Leg (R), 1+ Pedal (L), 1+ Pedal ( R), 1+ Generalized Objective Current Medications Medications (Trade) Dose Ordered Sig/Chandu Route PRN Reason Start Time Stop Time Status Last Admin Dose Admin Aspirin (ASA) 81 mg DAILY GT 11/27/18 09:00 12/27/18 08:59 11/27/18 10:15 Atorvastatin Calcium (Lipitor) 10 mg BEDTIME GT 11/27/18 21:00 12/27/18 20:59 11/27/18 20:44 Chlorhexidine Gluconate (Sue-Hex 2%) 1 applic DAILY@2000 TOPIC 11/26/18 20:00 12/21/18 19:59 11/27/18 20:44 Dextrose 1,000 ml @ 75 mls/hr [id number] IV 11/27/18 08:30 12/27/18 08:29 11/27/18 21:00 Dextrose (Dextrose 50%) 25 ml Q30M PRN IV Hypoglycemia 11/26/18 19:15 12/21/18 19:44 Dextrose (Dextrose 50%) 50 ml Q30M PRN IV Hypoglycemia 11/26/18 19:15 12/21/18 19:44 Heparin Sodium (Porcine) (Heparin 5000 units/ml) 5,000 units EVERY 12 HOURS SUBQ 11/26/18 21:00 12/21/18 08:59 11/26/18 21:32 Insulin Aspart (NovoLOG) Q6HR SUBQ 11/27/18 00:00 12/21/18 11:59 11/28/18 05:22 Insulin Detemir (Levemir) 5 units BID SUBQ 11/27/18 09:00 12/21/18 19:44 11/27/18 10:19 Meropenem 500 mg/ Sodium Chloride 55 ml @ 110 mls/hr Q12H IVPB 11/27/18 04:30 11/29/18 16:29 11/28/18 04:00 Metoprolol Tartrate (Lopressor) 25 mg Q12HR GT 11/27/18 09:00 12/27/18 08:59 11/27/18 20:44 Pantoprazole (Protonix) 40 mg DAILY IVP 11/27/18 09:00 12/21/18 08:59 11/27/18 10:17 Vancomycin HCl (Vanco rx to dose) 1 ea DAILY PRN MISC Per rx protocol 11/27/18 09:00 12/21/18 14:59 Vancomycin HCl/ Dextrose 275 ml @ 183.333 mls/hr Q48H IVPB 11/28/18 08:00 12/03/18 07:59 Jack Bonilla MD November 28, 2018 06:30
--- NOTE | 2018-11-28 07:13 | NUR ---
HAND-OFF: Report given to Tiarra DUNCAN.
--- NOTE | 2018-11-28 07:14 | NUR ---
NURSE NOTES: Received patient from DAKOTA bob. Patient VS stable at this time. Patient alert times 1. Patient confused. Patient noncompliant, combative, and violent at times. Patient needs to be cleaned at this time. Will clean when possible. Patient showing sinus rhythm on the youth nutritional monitor. Patient on room air at this time. Patient coughing occasionally. Patient oxygen saturation stable. Patient has g tube that is patent, asymptomatic, and running glucerna 1.2 at 30mL/hr at this time with an order for flush 200mL every 6 hours. Patient has a cruz for urine retention. Patient has sacral and bilateral heel redness. Patient has right IJ TLC with dressing changed last night. Patient labs stable today. Patient received 2 pack red blood cell on 11/27/2018. Patient bed in low position with bed alarm and call light in reach at this time.
[2018-11-28 07:23] LABS: BASOPHILS % (AUTO) 1.1 % (0.0-2.0); HEMATOCRIT 39.2 % (37.0-47.0); HEMOGLOBIN 12.6 G/DL (12.0-16.0); LYMPHOCYTES % (AUTO) 29.2 % (20.0-45.0); MEAN CORPUSCULAR VOLUME 95 FL (80-99); MONOCYTES % (AUTO) 12.1 % (1.0-10.0); NEUTROPHILS % (AUTO) 56.6 % (45.0-75.0); PLATELET COUNT 135 K/UL (150-450); RED BLOOD COUNT 4.14 M/UL (4.20-5.40); RED CELL DISTRIBUTION WIDTH 16.6 % (11.6-14.8); WHITE BLOOD COUNT 7.1 K/UL (4.8-10.8)
[2018-11-28 07:24] LABS: ANION GAP 9 mmol/L (5-15); BLOOD UREA NITROGEN 30 mg/dL (7-18); CALCIUM 9.2 MG/DL (8.5-10.1); CARBON DIOXIDE 26 MMOL/L (21-32); CHLORIDE 109 MMOL/L (98-107); CREATININE 1.8 MG/DL (0.55-1.30); POTASSIUM 3.7 MMOL/L (3.5-5.1); SODIUM 144 MMOL/L (136-145)
--- NOTE | 2018-11-28 07:30 | Pulmonology Progress Note ---
Assessment/Plan Assessment/Plan IMPRESSION: 1. Sepsis and bacteremia. 2. UTI. 3. COPD. 4. Diabetes mellitus. 5. Chronic G-tube. 6. Dementia. 7. Severe hypernatremia. 8. Acute renal failure. 9. Anemia; improved after prbc; recurrent DISCUSSION: 1. Septic shock resolved. Continue broad-spectrum antibiotics. 2. Decubitus. Continue wound care. At this time, no further intervention required. 3. Enteral feedings. Continue enteral feedings and also continue Protonix. 4. DVT prophylaxis. Continue heparin subcu. 5. Hypernatremia. Continue hypotonic fluid. Appreciate nephrology consult. 6. Diabetes mellitus. Continue insulin sliding scale. Seen by endocrinology. 7. COPD. Continue oxygen. 8. Hypertension. 9. Metabolic encephalopathy. 10. Will consult GI for recurrent drop in Hgb The patient is a Full Code. Discussed with nursing staff. The patient has a POLST. I will follow carefully. Maxim East MD Subjective Interval Events: labs pending this AM; GI consult requested Constitutional: Reports: no symptoms HEENT: Repors: no symptoms Respiratory: Reports: no symptoms Cardiovascular: Reports: no symptoms Gastrointestinal/Abdominal: Reports: no symptoms Genitourinary: Reports: no symptoms Allergies: Coded Allergies: SULFA (SULFONAMIDE ANTIBIOTICS) (Unverified Allergy, Unknown, 09/30/18) COPIED FROM UNCODED Uncoded Allergies: SULFA (Allergy, Unknown, 11/20/18) Objective Last 24 Hour Vital Signs Date Time Temp Pulse Resp B/P (MAP) Pulse Ox O2 Delivery O2 Flow Rate FiO2 11/28/18 04:00 89 11/28/18 04:00 98.6 86 20 107/56 (73) 98 11/28/18 00:00 78 11/28/18 00:00 97.9 84 16 110/56 (74) 99 11/27/18 21:00 Room Air 11/27/18 20:44 93 133/77 11/27/18 20:00 98.0 93 17 133/77 (95) 99 11/27/18 20:00 79 11/27/18 16:00 97.5 74 16 119/72 (88) 98 11/27/18 15:14 78 11/27/18 13:22 87 11/27/18 12:00 98.0 92 18 109/60 (76) 97 11/27/18 10:16 88 127/73 11/27/18 09:03 Room Air 11/27/18 08:21 98 Room Air 21 11/27/18 08:21 Room Air 21 11/27/18 08:21 88 18 Room Air 21 11/27/18 08:00 97.9 98 18 127/73 (91) 11/27/18 07:55 95 Intake and Output 11/27/18 11/28/18 18:59 06:59 Intake Total 730 ml 1840 ml Output Total 1200 ml 1000 ml Balance -470 ml 840 ml Intake Free Water 400 ml 600 ml IV Total 880 ml Tube Feeding 330 ml 360 ml Output Urine Total 1200 ml 1000 ml # Voids 1 # Bowel Movements 1 General Appearance: no acute distress HEENT: normocephalic Respiratory/Chest: chest wall non-tender, normal breath sounds Cardiovascular: normal peripheral pulses, normal rate Abdomen: normal bowel sounds, soft, non tender Extremities: no cyanosis Laboratory Tests 11/28/18 05:40: White Blood Count [Pending], Red Blood Count [Pending], Hemoglobin [Pending], Hematocrit [Pending], Mean Corpuscular Volume [Pending], Mean Corpuscular Hemoglobin [Pending], Mean Corpuscular Hemoglobin Concent [Pending], Red Cell Distribution Width [Pending], Platelet Count [Pending], Mean Platelet Volume [ Pending], Neutrophils (%) (Auto) [Pending], Lymphocytes (%) (Auto) [Pending], Monocytes (%) (Auto) [Pending], Eosinophils (%) (Auto) [Pending], Basophils (%) (Auto) [Pending], Sodium Level 144, Potassium Level 3.7, Chloride Level 109H, Carbon Dioxide Level 26, Anion Gap 9, Blood Urea Nitrogen 30H, Creatinine 1.8H, Estimat Glomerular Filtration Rate , Glucose Level 113H, Calcium Level 9.2, Iron Level [Pending], Unsaturated Iron Binding [Pending], Vitamin B12 Level [ Pending], Folate [Pending] Current Medications Medications (Trade) Dose Ordered Sig/Chandu Route PRN Reason Start Time Stop Time Status Last Admin Dose Admin Aspirin (ASA) 81 mg DAILY GT 11/27/18 09:00 12/27/18 08:59 11/27/18 10:15 Atorvastatin Calcium (Lipitor) 10 mg BEDTIME GT 11/27/18 21:00 12/27/18 20:59 11/27/18 20:44 Chlorhexidine Gluconate (Sue-Hex 2%) 1 applic DAILY@2000 TOPIC 11/26/18 20:00 12/21/18 19:59 11/27/18 20:44 Dextrose 1,000 ml @ 75 mls/hr [id number] IV 11/27/18 08:30 12/27/18 08:29 11/27/18 21:00 Dextrose (Dextrose 50%) 25 ml Q30M PRN IV Hypoglycemia 11/26/18 19:15 12/21/18 19:44 Dextrose (Dextrose 50%) 50 ml Q30M PRN IV Hypoglycemia 11/26/18 19:15 12/21/18 19:44 Heparin Sodium (Porcine) (Heparin 5000 units/ml) 5,000 units EVERY 12 HOURS SUBQ 11/26/18 21:00 12/21/18 08:59 11/26/18 21:32 Insulin Aspart (NovoLOG) Q6HR SUBQ 11/27/18 00:00 12/21/18 11:59 11/28/18 05:22 Insulin Detemir (Levemir) 6 units DAILY SUBQ 11/28/18 09:00 12/21/18 19:44 Meropenem 500 mg/ Sodium Chloride 55 ml @ 110 mls/hr Q12H IVPB 11/27/18 04:30 11/29/18 16:29 11/28/18 04:00 Metoprolol Tartrate (Lopressor) 25 mg Q12HR GT 11/27/18 09:00 12/27/18 08:59 11/27/18 20:44 Pantoprazole (Protonix) 40 mg DAILY IVP 11/27/18 09:00 12/21/18 08:59 11/27/18 10:17 Vancomycin HCl (Vanco rx to dose) 1 ea DAILY PRN MISC Per rx protocol 11/27/18 09:00 12/21/18 14:59 Vancomycin HCl/ Dextrose 275 ml @ 183.333 mls/hr Q48H IVPB 11/28/18 08:00 12/03/18 07:59 Maxim East MD November 28, 2018 07:30
[2018-11-28 08:00] VITALS: BP 124/62
[2018-11-28] MEDS ORDERED: Vancomycin 1.25gm Premix IVPB SCH (08:00)
[2018-11-28] MEDS ORDERED: Vancomycin 1.25gm Premix 275 ML IVPB SCH (08:00)
[2018-11-28 08:38] LABS: % IRON SATURATION 22 % (15-50); IRON 42 ug/dL (50-175); TOTAL IRON BINDING CAPACITY 194 ug/dL (250-450)
--- NOTE | 2018-11-28 08:50 | Nephrology Progress Note ---
Assessment/Plan Assessment/Plan: A/P 1. NAOMY secondary to multifactorial ATN from ischemia/vol depletion and proximal tubule injury from inflammatory cytokines due to sepsis. -Cr stable 1.8 2. Septic shock. Blood and urine Cxs +ve, Antibiotics per ID 3. Severe volume depletion. Na down to 144. DC D5W - free water thru PEG 4. Anemia- Transfused 2 Units PRBC. Mgmt per PCP 5. Hypokalemia- will replace prn basis Subjective Date patient seen: November 28, 2018 Time patient seen: 08:48 ROS Limited/Unobtainable: Yes Allergies: Coded Allergies: SULFA (SULFONAMIDE ANTIBIOTICS) (Unverified Allergy, Unknown, 09/30/18) COPIED FROM UNCODED Uncoded Allergies: SULFA (Allergy, Unknown, 11/20/18) Subjective Patient somnolent but arousable and awke. Seems to visual track Objective Last 24 Hour Vital Signs Date Time Temp Pulse Resp B/P (MAP) Pulse Ox O2 Delivery O2 Flow Rate FiO2 11/28/18 04:00 89 11/28/18 04:00 98.6 86 20 107/56 (73) 98 11/28/18 00:00 78 11/28/18 00:00 97.9 84 16 110/56 (74) 99 11/27/18 21:00 Room Air 11/27/18 20:44 93 133/77 11/27/18 20:00 98.0 93 17 133/77 (95) 99 11/27/18 20:00 79 11/27/18 16:00 97.5 74 16 119/72 (88) 98 11/27/18 15:14 78 11/27/18 13:22 87 11/27/18 12:00 98.0 92 18 109/60 (76) 97 11/27/18 10:16 88 127/73 11/27/18 09:03 Room Air Intake and Output 11/27/18 11/28/18 18:59 06:59 Intake Total 730 ml 1840 ml Output Total 1200 ml 1000 ml Balance -470 ml 840 ml Intake Free Water 400 ml 600 ml IV Total 880 ml Tube Feeding 330 ml 360 ml Output Urine Total 1200 ml 1000 ml # Voids 1 # Bowel Movements 1 Laboratory Tests 11/28/18 05:40: White Blood Count 7.1, Red Blood Count 4.14L, Hemoglobin 12.6#, Hematocrit 39.2# , Mean Corpuscular Volume 95, Mean Corpuscular Hemoglobin 30.4, Mean Corpuscular Hemoglobin Concent 32.1, Red Cell Distribution Width 16.6H, Platelet Count 135L, Mean Platelet Volume 9.6, Neutrophils (%) (Auto) 56.6, Lymphocytes (%) (Auto) 29.2, Monocytes (%) (Auto) 12.1H, Eosinophils (%) (Auto) 1.0, Basophils (%) (Auto) 1.1, Sodium Level 144, Potassium Level 3.7, Chloride Level 109H, Carbon Dioxide Level 26, Anion Gap 9, Blood Urea Nitrogen 30H, Creatinine 1.8H, Estimat Glomerular Filtration Rate , Glucose Level 113H, Calcium Level 9.2, Iron Level 42L, Total Iron Binding Capacity 194L, Percent Iron Saturation 22, Unsaturated Iron Binding 152, Vitamin B12 Level 1161H, Folate 14.0 Height (Feet): 5 Height (Inches): 4.00 Weight (Pounds): 164 General Appearance: no apparent distress EENT: normal ENT inspection Neck: normal alignment, supple Cardiovascular: normal rate, regular rhythm Respiratory/Chest: rhonchi - bilaterally Abdomen: non tender, soft Edema: no edema noted Arm (L), no edema noted Arm (R), no edema noted Leg (L), no edema noted Leg (R), no edema noted Pedal (L), no edema noted Pedal (R), no edema noted Generalized Jakub García MD November 28, 2018 08:50
[2018-11-28] MEDS: Pantoprazole Inj IVP SCH (09:05)
[2018-11-28] MEDS: Aspirin Baby 81mg GT SCH (09:05)
[2018-11-28] MEDS: Metoprolol 25mg tab GT SCH ×2 (09:09→21:02)
--- NOTE | 2018-11-28 09:15 | NUR ---
Social Service Note SW informed Dr. Mojica that patient is non-represented and wishes listed on POLST signed by patient. Bioethics available if indicated. Will continue to be available as needed.
[2018-11-28] MEDS: Heparin 5000 units/ml inj SUBQ SCH ×2 (09:16→21:17)
[2018-11-28] MEDS: Levemir Flexpen SUBQ SCH (09:18)
--- NOTE | 2018-11-28 10:17 | NUR ---
*-* INSURANCE *-* UPDATED CLINICALS HAVE BEEN FAXED TO: AUTH# [id number]* NCM: PETRA P:[phone] EXT [facility]0 F:[phone] FAX CLINICALS
--- NOTE | 2018-11-28 11:00 | NUR ---
RD ASSESSMENT & RECOMMENDATIONS SEE CARE ACTIVITY FOR COMPLETE ASSESSMENT DAILY ESTIMATED NEEDS: Needs based on Sepsis, DM, 69kg abw 25-30 kcals/kg 2423-0884 total kcals 1-2 g protein/kg 69-138 g total protein 25-30 mL/kg 2441-9430 total fluid mLs NUTRITION DIAGNOSIS: 1) Swallowing difficulty R/T dysphagia as evidenced by pt is GT dep. 2) Altered nutrition related lab values R/T clinical condition, DM, sepsis as evidenced by critically elev Na (162-> wnl), elev BUN(87-> 30), elev creat (3.4->1.8 trend down), elev BGs (293 166-> now improved), elev wbc (13.7-> wnl), hemodynamically stable, off pressors. CURRENT TF:Glucerna 1.2 @ 30ml x 24 hrs ENTERAL NUTRITION RECOMMENDATIONS: Glucerna 1.2 @ 60ml/hr x24 hrs to provide 1440ml, 1728kcal, 86g prot, 1159ml free water - Increase TF by 10ml/hr q 4-6 hrs to goal of 60ml/hr to meet est needs - Flush per MD/ HOB over 30 degrees ADDITIONAL RECOMMENDATIONS: 1) Calibrated bedscale wt -> off pressors now, out of ICU 2) Check lytes daily, replete as needed 3) F/ up w/ WC eval for lt heel and sacral redness per photo Moisture associated sacral per life sciences manager Add ULISSES BID to maintain skin integrity 4) Monitor BGs closely -> improved at this time
[2018-11-28 12:00] VITALS: BP 126/69
--- NOTE | 2018-11-28 13:10 | Infectious Diseases Prog Note ---
Assessment/Plan Assessment/Plan ASSESSMENT AND PLAN: 1. 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 endocarditis - meropenem x 3 days more - vancomycin iv x 12 more then po doxycycline x 10 days - TTE - no vegetation described - surveillance blood cultures - negative - monitor labs 2. Hypernatremia. 3. Elevated creatinine, herberth 4. Anemia. 5. Diabetes. 6. Hypertension. 7. Dysphagia, G-tube. 8. Blood sugar and blood pressure treatment, diabetes and hypertension per primary. 9. COPD. 10. CHF. 11. Gastroesophageal reflux disease. 12. Peptic ulcer disease. 13. Osteoarthrosis. 14. History of encephalopathy and dementia. 15. Continue treatment per primary consultants for other medical problems. 16. Allergies to sulfa. 17. Social history is negative. 18. Family history is noncontributory. 19. MAR was noted. 20. Case was discussed with RN. 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 Subjective Constitutional: Denies: fever HEENT: Denies: congestion Respiratory: Denies: shortness of breath Cardiovascular: Denies: chest pain, palpitations Gastrointestinal/Abdominal: Denies: nausea, vomiting, diarrhea Genitourinary: Reports: other - + cruz Neurologic: Reports: weakness Psychiatric: Reports: other - na Skin: Denies: rash Hematologic: Denies: bleeding Musculoskeletal: Denies: pain Allergies: Coded Allergies: SULFA (SULFONAMIDE ANTIBIOTICS) (Unverified Allergy, Unknown, 09/30/18) COPIED FROM UNCODED Uncoded Allergies: SULFA (Allergy, Unknown, 11/20/18) Objective Vital Signs Last 24 Hour Vital Signs Date Time Temp Pulse Resp B/P (MAP) Pulse Ox O2 Delivery O2 Flow Rate FiO2 11/28/18 09:09 96 124/62 11/28/18 09:00 Room Air 11/28/18 08:00 98.8 96 21 124/62 (82) 94 11/28/18 08:00 90 11/28/18 04:00 89 11/28/18 04:00 98.6 86 20 107/56 (73) 98 11/28/18 00:00 78 11/28/18 00:00 97.9 84 16 110/56 (74) 99 11/27/18 21:00 Room Air 5/7/19 20:44 93 133/77 11/27/18 20:00 98.0 93 17 133/77 (95) 99 11/27/18 20:00 79 11/27/18 16:00 97.5 74 16 119/72 (88) 98 11/27/18 15:14 78 11/27/18 13:22 87 Height (Feet): 5 Height (Inches): 4.00 Weight (Pounds): 164 General Appearance: no acute distress, other HEENT: normocephalic, atraumatic, anicteric, mucous membranes moist Respiratory/Chest: crackles/rales Cardiovascular: normal rate, regular rhythm, no gallop/murmur Abdomen: normal bowel sounds, soft, non tender, no organomegaly, non distended Genitourinary: other - + cruz - urine clear Extremities: no cyanosis Skin: no rash Neurologic/Psychiatric: poly area supervisor II-XII grossly normal, alert, oriented x 3, responsive Lymphatic: no neck adenopathy Musculoskeletal: no effusion Objective Chest x-ray - 11/24/18 - COMPARISON: Chest x-ray dated 11/22/18 FINDINGS: Single frontal view demonstrates a normal cardiomediastinal silhouette. The lungs are clear. No pleural effusions. The visualized osseous structures are within normal limits. Right internal jugular catheter with tip in the midsuperior vena cava. IMPRESSION: No acute cardiopulmonary disease. Right internal jugular catheter with tip in the midsuperior vena cava. Microbiology Date/Time Source Procedure Growth Status 11/23/18 04:00 Blood Blood Culture - Preliminary NO GROWTH AFTER 72 HOURS Resulted 11/20/18 18:18 Nasal Nares MRSA Culture - Final Staphylococcus Aureus - Mrsa Complete 11/20/18 16:50 Urine,Clean Catch Urine Culture - Final Escherichia Coli - Esbl#2 Escherichia Coli Complete 11/21/18 18:18 Rectum - Final NO CARBAPENEM-RESISTANT ENTEROBACTERI... Complete Laboratory Tests Test 11/28/18 05:40 White Blood Count 7.1 K/UL (4.8-10.8) Red Blood Count 4.14 M/UL (4.20-5.40) L Hemoglobin 12.6 G/DL (12.0-16.0) # Hematocrit 39.2 % (37.0-47.0) # Mean Corpuscular Volume 95 FL (80-99) Mean Corpuscular Hemoglobin 30.4 PG (27.0-31.0) Mean Corpuscular Hemoglobin Concent 32.1 G/DL (32.0-36.0) Red Cell Distribution Width 16.6 % (11.6-14.8) H Platelet Count 135 K/UL (150-450) L Mean Platelet Volume 9.6 FL (6.5-10.1) Neutrophils (%) (Auto) 56.6 % (45.0-75.0) Lymphocytes (%) (Auto) 29.2 % (20.0-45.0) Monocytes (%) (Auto) 12.1 % (1.0-10.0) H Eosinophils (%) (Auto) 1.0 % (0.0-3.0) Basophils (%) (Auto) 1.1 % (0.0-2.0) Sodium Level 144 MMOL/L (136-145) Potassium Level 3.7 MMOL/L (3.5-5.1) Chloride Level 109 MMOL/L (98-107) H Carbon Dioxide Level 26 MMOL/L (21-32) Anion Gap 9 mmol/L (5-15) Blood Urea Nitrogen 30 mg/dL (7-18) H Creatinine 1.8 MG/DL (0.55-1.30) H Estimat Glomerular Filtration Rate mL/min (>60) Glucose Level 113 MG/DL (74-106) H Calcium Level 9.2 MG/DL (8.5-10.1) Iron Level 42 ug/dL (50-175) L Total Iron Binding Capacity 194 ug/dL (250-450) L Percent Iron Saturation 22 % (15-50) Unsaturated Iron Binding 152 ug/dL (112-346) Vitamin B12 Level 1161 PG/ML (193-986) H Folate 14.0 NG/ML (8.6-58.9) Current Medications Medications (Trade) Dose Ordered Sig/Chandu Route PRN Reason Start Time Stop Time Status Last Admin Dose Admin Aspirin (ASA) 81 mg DAILY GT 11/27/18 09:00 12/27/18 08:59 11/28/18 09:05 Atorvastatin Calcium (Lipitor) 10 mg BEDTIME GT 11/27/18 21:00 12/27/18 20:59 11/27/18 20:44 Chlorhexidine Gluconate (Sue-Hex 2%) 1 applic DAILY@2000 TOPIC 11/26/18 20:00 12/21/18 19:59 11/27/18 20:44 Dextrose 1,000 ml @ 75 mls/hr [id number] IV 11/27/18 08:30 12/27/18 08:29 11/28/18 12:01 Dextrose (Dextrose 50%) 25 ml Q30M PRN IV Hypoglycemia 11/26/18 19:15 12/21/18 19:44 Dextrose (Dextrose 50%) 50 ml Q30M PRN IV Hypoglycemia 11/26/18 19:15 12/21/18 19:44 Heparin Sodium (Porcine) (Heparin 5000 units/ml) 5,000 units EVERY 12 HOURS SUBQ 11/26/18 21:00 12/21/18 08:59 11/28/18 09:16 Insulin Aspart (NovoLOG) Q6HR SUBQ 11/27/18 00:00 12/21/18 11:59 11/28/18 12:04 Insulin Detemir (Levemir) 6 units DAILY SUBQ 11/28/18 09:00 12/21/18 19:44 11/28/18 09:18 Meropenem 500 mg/ Sodium Chloride 55 ml @ 110 mls/hr Q12H IVPB 11/27/18 04:30 11/29/18 16:29 11/28/18 04:00 Metoprolol Tartrate (Lopressor) 25 mg Q12HR GT 11/27/18 09:00 12/27/18 08:59 11/28/18 09:09 Pantoprazole (Protonix) 40 mg DAILY IVP 11/27/18 09:00 12/21/18 08:59 11/28/18 09:05 Vancomycin HCl (Vanco rx to dose) 1 ea DAILY PRN MISC Per rx protocol 11/27/18 09:00 12/21/18 14:59 Vancomycin HCl/ Dextrose 275 ml @ 183.333 mls/hr Q48H IVPB 11/28/18 08:00 12/03/18 07:59 11/28/18 09:05 Blanca Leigh MD November 28, 2018 13:10
[2018-11-28] MEDS ORDERED: NS 275ml ONE (13:29)
[2018-11-28] MEDS ORDERED: Tubing IV Secondary IV ONE (13:29)
[2018-11-28 16:00] VITALS: BP 126/69
--- NOTE | 2018-11-28 16:15 | Progress Note ---
CARDIOLOGY PROGRESS NOTE DATE: 11/28/2018 SUBJECTIVE: The patient is without new distress. More alert and interactive. OBJECTIVE: VITAL SIGNS: Blood pressure 107/56, pulse 86, respirations 20, afebrile. LUNGS: Bilateral breath sounds. No wheezing. CARDIAC: Regular rhythm and rate. Normal S1, S2. ABDOMEN: Soft. EXTREMITIES: No edema. LABORATORY DATA: Sodium 144, potassium 3.7, bicarbonate 26, BUN 30, and creatinine 1.8. White count 7.1, hemoglobin 12.6 following transfusions. IMPRESSION: 1. Recurring anemia, status post transfusions. 2. Sepsis with shock due to urinary tract infection, now recovering. 3. Dehydration. 4. Hypernatremia, now corrected. 5. Acute on chronic renal failure, improving. 6. Chronic diastolic congestive heart failure, compensated clinically. PLAN: 1. Maintenance hydration. 2. Antimicrobials. 3. Agree with GI consult to evaluate for possible GI blood loss. 4. Maintain current cardiovascular regimen without change. Robert Cuellar M.D. DR: GILBERT JOB#: [id number] CC:
--- NOTE | 2018-11-28 17:27 | NUR ---
TEMPLATE CLERKANODISER SI: SEPTIC SHOCK . UTI VS: BP 107/56, P 96, T 97.9, RR 22, SpO2 98 RBC 4.14, , Na 150, BUN 30, CR 1.8 IS: LEVEMIR SUBQ LOPRESSOR 25mg MEROPENEM 55ml IVPB D5W x1L IV NOVOLOG SUBQ VANCOMYCIN 275ml IVPB TELE STATUS
--- NOTE | 2018-11-28 19:20 | NUR ---
HAND-OFF: Report given to DAKOTA Martinez. Patient VS stable at this time with no sign of acute distress.
--- NOTE | 2018-11-28 19:31 | NUR ---
NURSE NOTES: Report received from DAKOTA Mayen. Pt is in stable condition. Bed in the lowest position, bed brakes engaged, side rails up x3, and call light within reach.
[2018-11-28 20:00] VITALS: BP 123/67
[2018-11-28] MEDS: Dyna-Hex 2% Top Sol 2oz TOPIC SCH (21:02)
--- NOTE | 2018-11-28 21:21 | General Progress Note ---
Assessment/Plan Assessment/Plan: Assessment - Anemia - Dysphagia, s/p PEG - recent sepsis - CRI - OBS - No next of kin Recommendations - PPI - monitor H&H - TF - Elevate HOB - No endoscopy planned at this time but can reconsider if emergency indications arise Kristel Mojica MD Subjective Allergies: Coded Allergies: SULFA (SULFONAMIDE ANTIBIOTICS) (Unverified Allergy, Unknown, 09/30/18) COPIED FROM UNCODED Uncoded Allergies: SULFA (Allergy, Unknown, 11/20/18) Subjective Above noted [employer] communication noted patient has no DPOA no bleeding reported H&H much improved today stool OB (P) Objective Last 24 Hour Vital Signs Date Time Temp Pulse Resp B/P (MAP) Pulse Ox O2 Delivery O2 Flow Rate FiO2 11/28/18 21:02 94 123/67 11/28/18 16:00 75 11/28/18 16:00 98.8 82 22 126/69 (88) 96 11/28/18 12:00 98.8 82 22 126/69 (88) 96 11/28/18 12:00 75 11/28/18 09:09 96 124/62 11/28/18 09:00 Room Air 11/28/18 08:00 98.8 96 21 124/62 (82) 94 11/28/18 08:00 90 11/28/18 04:00 89 11/28/18 04:00 98.6 86 20 107/56 (73) 98 11/28/18 00:00 78 11/28/18 00:00 97.9 84 16 110/56 (74) 99 Intake and Output 11/27/18 11/28/18 19:00 07:00 Intake Total 730 ml 1915 ml Output Total 1200 ml 1000 ml Balance -470 ml 915 ml Intake Free Water 400 ml 600 ml IV Total 955 ml Tube Feeding 330 ml 360 ml Output Urine Total 1200 ml 1000 ml # Voids 1 # Bowel Movements 1 Laboratory Tests 11/28/18 05:40: White Blood Count 7.1, Red Blood Count 4.14L, Hemoglobin 12.6#, Hematocrit 39.2# , Mean Corpuscular Volume 95, Mean Corpuscular Hemoglobin 30.4, Mean Corpuscular Hemoglobin Concent 32.1, Red Cell Distribution Width 16.6H, Platelet Count 135L, Mean Platelet Volume 9.6, Neutrophils (%) (Auto) 56.6, Lymphocytes (%) (Auto) 29.2, Monocytes (%) (Auto) 12.1H, Eosinophils (%) (Auto) 1.0, Basophils (%) (Auto) 1.1, Sodium Level 144, Potassium Level 3.7, Chloride Level 109H, Carbon Dioxide Level 26, Anion Gap 9, Blood Urea Nitrogen 30H, Creatinine 1.8H, Estimat Glomerular Filtration Rate , Glucose Level 113H, Calcium Level 9.2, Iron Level 42L, Total Iron Binding Capacity 194L, Percent Iron Saturation 22, Unsaturated Iron Binding 152, Vitamin B12 Level 1161H, Folate 14.0 11/28/18 15:30: Stool Occult Blood [Pending] Height (Feet): 5 Height (Inches): 4.00 Weight (Pounds): 164 Objective Elderly WW NCAT supple coarse BS RR abd soft, GT intact Nuero: Confused and agitated when examined Kristel Mojica MD November 28, 2018 21:21
[2018-11-29] VITALS: BP 107/56
--- NOTE | 2018-11-29 00:30 | NUR ---
NURSE NOTES: Patient refused 0000 accucheck. Pt stated that RN should "get out of here."
--- NOTE | 2018-11-29 00:30 | Consultation ---
DATE OF CONSULTATION: 11/27/2018 NOTE: "VERY POOR AUDIO QUALITY" GASTROENTEROLOGY CONSULTATION CONSULTING PHYSICIAN: Kristel Mojica M.D. CHIEF COMPLAINT: I was asked to see this patient by Dr. Maxim East for evaluation of recurrent anemia. HISTORY OF PRESENT ILLNESS: The patient is a debilitated 83-year-old confused white woman from a residential, who was brought into the hospital due to urosepsis. She has been seen by multiple consultants and has been placed on antibiotics. Her condition is better, but she has been noted to have a drop in hematocrit and therefore, this consultation was generated. The patient is unable to provide any history and most of information is only available from the chart records. There is no contact information available for any family member. There is also no chart records of any gastrointestinal workup on this patient. Her blood count however has about 3 months ago and the patient was admitted to Hospital. The patient did have a bowel movement every day and there is no report of melena or hematochezia. The patient does have history of renal failure and her creatinine has been creatinine clearance. She also has history of . PAST MEDICAL HISTORY: History of renal failure, COPD, diastolic congestive heart failure, diabetes, dementia, chronic encephalopathy, hypertension, gastroesophageal reflux disease, history of bleeding ulcer, osteoarthritis. MEDICATIONS: Noted. PAST SURGICAL HISTORY: Status post gastrostomy tube placement. ALLERGIES: Sulfa. FAMILY HISTORY: Unavailable. SOCIAL HISTORY: The patient is from a residential. Otherwise, there is no social history available. REVIEW OF SYSTEMS: Unobtainable due to the patient's dementia.. PHYSICAL EXAMINATION: GENERAL: Very confused, elderly white woman, somewhat agitated when she was examined. HEENT: Normocephalic and atraumatic. Sclerae are anicteric. Oropharynx is clear. Poor dentition. NECK: Supple. CHEST: Revealed coarse breath sounds. CARDIOVASCULAR: Revealed regular rate. ABDOMEN: Soft and nontender. EXTREMITIES: Revealed no edema. LABORATORY DATA: Noted. ASSESSMENT: This patient presents with anemia, which is somewhat chronic although this morning, evaluation of this demonstrates the values so low prompting this consultation and she has been ordered for blood transfusion. Potential diagnoses include for blood clots, however, it should be noted that on the patient's admission pathological process could her anemia. This was further supported by her drop in platelet count. renal insufficiency with creatinine of 1.9. In this age, the creatinine clearance is eventually low and therefore, I thought her anemia may be due to renal failure and her stool should be checked for occult blood and she should be continued on proton-pump inhibitor. There is no family contacts available. We will ask [employer] to assist and we will find one if available. Discussion will be held regarding gastrointestinal workup, but this should be weighed against the patient's overall poor health. Should there be evidence of acute gastrointestinal bleeding such as melena, then the patient can undergo an endoscopy based on her urgency . RECOMMENDATIONS: 1. Follow up CBC. 2. Agree with blood transfusion. 3. Check stool for occult blood. 4. Check iron panel. 5. Check vitamin B12 and folate. 6. [employer] to assist with finding the family. Thank you for asking me to participate in the care of this patient. Kristel Mojica M.D. DR: LATOYA JOB#: [id number] CC:
[2018-11-29 04:00] VITALS: BP 100/50
[2018-11-29] MEDS: Meropenem 500 MG in NS 55 ML IVPB SCH ×2 (05:30→16:30)
[2018-11-29] MEDS: NovoLOG Insulin Flexpen SUBQ SCH ×3 (05:52→12:00)
--- NOTE | 2018-11-29 05:53 | NUR ---
NURSE NOTES: Pt refused accucheck for 0600. Pt raised voice and stated to "get away from her."
--- NOTE | 2018-11-29 06:20 | General Progress Note ---
Assessment/Plan Problem List: (1) COPD (chronic obstructive pulmonary disease) ICD Codes: J44.9 - Chronic obstructive pulmonary disease, unspecified SNOMED: 67531275 Qualifiers: Qualified Codes: J44.1 - Chronic obstructive pulmonary disease with (acute) exacerbation (2) Severe sepsis ICD Codes: A41.9 - Sepsis, unspecified organism; R65.20 - Severe sepsis without septic shock SNOMED: 62653576 (3) Diabetes ICD Codes: E11.9 - Type 2 diabetes mellitus without complications SNOMED: 81781978 (4) Feeding by G-tube ICD Codes: Z93.1 - Gastrostomy status SNOMED: 909688237, 332034289 (5) Aspiration pneumonia ICD Codes: J69.0 - Pneumonitis due to inhalation of food and vomit SNOMED: 895380869 Assessment/Plan: continue Levemir 6 units daily continue NISS every 6 hours Subjective ROS Limited/Unobtainable: Yes Allergies: Coded Allergies: SULFA (SULFONAMIDE ANTIBIOTICS) (Unverified Allergy, Unknown, 09/30/18) COPIED FROM UNCODED Uncoded Allergies: SULFA (Allergy, Unknown, 11/20/18) Subjective events noted Item Value Date Time Bedside Blood Glucose 131 mg/dl H 11/28/18 1850 Bedside Blood Glucose 124 mg/dl H 11/28/18 1204 Bedside Blood Glucose 115 mg/dl 11/28/18 0920 Bedside Blood Glucose 128 mg/dl H 11/28/18 0600 Bedside Blood Glucose 131 mg/dl H 11/28/18 0000 Objective Last 24 Hour Vital Signs Date Time Temp Pulse Resp B/P (MAP) Pulse Ox O2 Delivery O2 Flow Rate FiO2 11/29/18 04:00 98.4 90 20 100/50 (67) 98 11/29/18 04:00 89 11/29/18 00:00 97.9 90 18 107/56 (73) 97 11/29/18 00:00 85 11/28/18 21:02 94 123/67 11/28/18 21:00 Room Air 11/28/18 20:00 97.4 94 18 123/67 (85) 97 11/28/18 20:00 83 11/28/18 16:00 75 11/28/18 16:00 98.8 82 22 126/69 (88) 96 5/8/19 12:00 98.8 82 22 126/69 (88) 96 11/28/18 12:00 75 11/28/18 09:09 96 124/62 11/28/18 09:00 Room Air 11/28/18 08:00 98.8 96 21 124/62 (82) 94 11/28/18 08:00 90 Intake and Output 11/28/18 11/29/18 19:00 07:00 Intake Total 1920.000 ml Output Total 1400 ml Balance 520.000 ml Intake Free Water 400 ml IV Total 1160.000 ml Tube Feeding 360 ml Output Urine Total 1400 ml # Bowel Movements 4 Laboratory Tests 11/28/18 15:30: Stool Occult Blood [Pending] Height (Feet): 5 Height (Inches): 4.00 Weight (Pounds): 164 General Appearance: no apparent distress Neck: normal alignment Cardiovascular: normal rate Respiratory/Chest: decreased breath sounds Abdomen: normal bowel sounds Edema: 1+ Arm (L), 1+ Arm (R), 1+ Leg (L), 1+ Leg (R), 1+ Pedal (L), 1+ Pedal ( R), 1+ Generalized Objective Current Medications Medications (Trade) Dose Ordered Sig/Chandu Route PRN Reason Start Time Stop Time Status Last Admin Dose Admin Aspirin (ASA) 81 mg DAILY GT 11/27/18 09:00 12/27/18 08:59 11/28/18 09:05 Atorvastatin Calcium (Lipitor) 10 mg BEDTIME GT 11/27/18 21:00 12/27/18 20:59 11/28/18 21:02 Chlorhexidine Gluconate (Sue-Hex 2%) 1 applic DAILY@2000 TOPIC 11/26/18 20:00 12/21/18 19:59 11/28/18 21:02 Dextrose 1,000 ml @ 75 mls/hr [id number] IV 11/27/18 08:30 12/27/18 08:29 11/29/18 02:19 Dextrose (Dextrose 50%) 25 ml Q30M PRN IV Hypoglycemia 11/26/18 19:15 12/21/18 19:44 Dextrose (Dextrose 50%) 50 ml Q30M PRN IV Hypoglycemia 11/26/18 19:15 12/21/18 19:44 Heparin Sodium (Porcine) (Heparin 5000 units/ml) 5,000 units EVERY 12 HOURS SUBQ 11/26/18 21:00 12/21/18 08:59 11/28/18 21:17 Insulin Aspart (NovoLOG) Q6HR SUBQ 11/27/18 00:00 12/21/18 11:59 11/28/18 18:34 Insulin Detemir (Levemir) 6 units DAILY SUBQ 11/28/18 09:00 12/21/18 19:44 11/28/18 09:18 Meropenem 500 mg/ Sodium Chloride 55 ml @ 110 mls/hr Q12H IVPB 11/28/18 16:30 12/01/18 04:29 11/29/18 05:30 Metoprolol Tartrate (Lopressor) 25 mg Q12HR GT 11/27/18 09:00 12/27/18 08:59 11/28/18 21:02 Pantoprazole (Protonix) 40 mg DAILY IVP 11/27/18 09:00 12/21/18 08:59 11/28/18 09:05 Vancomycin HCl (Vanco rx to dose) 1 ea DAILY PRN MISC Per rx protocol 11/27/18 09:00 12/21/18 14:59 Vancomycin HCl/ Dextrose 275 ml @ 183.333 mls/hr Q48H IVPB 11/28/18 08:00 12/03/18 07:59 11/28/18 09:05 Jack Bonilla MD November 29, 2018 06:20
[2018-11-29 07:13] LABS: EOSINOPHILS % (AUTO) 0.6 % (0.0-3.0); HEMATOCRIT 44.8 % (37.0-47.0); HEMOGLOBIN 14.3 G/DL (12.0-16.0); LYMPHOCYTES % (AUTO) 32.3 % (20.0-45.0); MEAN CORPUSCULAR VOLUME 96 FL (80-99); MONOCYTES % (AUTO) 13.3 % (1.0-10.0); NEUTROPHILS % (AUTO) 52.8 % (45.0-75.0); PLATELET COUNT 166 K/UL (150-450); RED BLOOD COUNT 4.69 M/UL (4.20-5.40); RED CELL DISTRIBUTION WIDTH 16.7 % (11.6-14.8); WHITE BLOOD COUNT 7.6 K/UL (4.8-10.8)
[2018-11-29 07:18] LABS: ANION GAP 11 mmol/L (5-15); BLOOD UREA NITROGEN 31 mg/dL (7-18); CALCIUM 9.8 MG/DL (8.5-10.1); CARBON DIOXIDE 26 MMOL/L (21-32); CHLORIDE 104 MMOL/L (98-107); CREATININE 1.6 MG/DL (0.55-1.30); POTASSIUM 4.4 MMOL/L (3.5-5.1); SODIUM 141 MMOL/L (136-145)
--- NOTE | 2018-11-29 07:48 | NUR ---
HAND-OFF: Report given to DAKOTA Lomeli. Plan of care endorsed.
--- NOTE | 2018-11-29 07:50 | NUR ---
NURSE NOTES: Pt received from DAKOTA Martinez currently sleeping and resting in bed with no complaints or s/s of acute distress. IV site asymptomatic and patent - running to D5W at 75. Gtube feed tolerated - running at 30 ml/hr, 10 mL gastric residual. Aspiration precautions implemented - HOB elevated, suction at bedside. Scales catheter patent and draining with clear and yellow urine. Bed in lowest position, bed alarm on. Fall precautions implemented. Call light and belongings within reach.
[2018-11-29 08:00] VITALS: BP 108/65
[2018-11-29] MEDS: Pantoprazole Inj IVP SCH (09:07)
[2018-11-29] MEDS: Aspirin Baby 81mg GT SCH (09:07)
[2018-11-29] MEDS: Metoprolol 25mg tab GT SCH (09:07)
[2018-11-29] MEDS: Heparin 5000 units/ml inj SUBQ SCH (09:08)
[2018-11-29] MEDS: Levemir Flexpen SUBQ SCH (09:17)
--- NOTE | 2018-11-29 09:23 | General Progress Note ---
Assessment/Plan Assessment/Plan: Assessment - Anemia - Dysphagia, s/p PEG - recent sepsis - CRI - OBS - No next of kin Recommendations - PPI - monitor H&H - TF - Elevate HOB - No endoscopy planned at this time but can reconsider if emergency indications arise Subjective Allergies: Coded Allergies: SULFA (SULFONAMIDE ANTIBIOTICS) (Unverified Allergy, Unknown, 09/30/18) COPIED FROM UNCODED Uncoded Allergies: SULFA (Allergy, Unknown, 11/20/18) Subjective Above noted no bleeding reported H&H now normal stool OB (P) Objective Last 24 Hour Vital Signs Date Time Temp Pulse Resp B/P (MAP) Pulse Ox O2 Delivery O2 Flow Rate FiO2 11/29/18 09:07 97 108/65 11/29/18 04:00 98.4 90 20 100/50 (67) 98 11/29/18 04:00 89 11/29/18 00:00 97.9 90 18 107/56 (73) 97 11/29/18 00:00 85 11/28/18 21:02 94 123/67 11/28/18 21:00 Room Air 11/28/18 20:00 97.4 94 18 123/67 (85) 97 11/28/18 20:00 83 11/28/18 16:00 75 11/28/18 16:00 98.8 82 22 126/69 (88) 96 11/28/18 12:00 98.8 82 22 126/69 (88) 96 11/28/18 12:00 75 Intake and Output 11/28/18 11/29/18 18:59 06:59 Intake Total 1920.000 ml 425 ml Output Total 1400 ml 1200 ml Balance 520.000 ml -775 ml Intake Free Water 400 ml IV Total 1160.000 ml 75 ml Tube Feeding 360 ml 350 ml Output Urine Total 1400 ml 1200 ml # Bowel Movements 4 Laboratory Tests 11/28/18 15:30: Stool Occult Blood [Pending] 11/29/18 05:15: White Blood Count 7.6, Red Blood Count 4.69, Hemoglobin 14.3, Hematocrit 44.8, Mean Corpuscular Volume 96, Mean Corpuscular Hemoglobin 30.5, Mean Corpuscular Hemoglobin Concent 31.9L, Red Cell Distribution Width 16.7H, Platelet Count 166 , Mean Platelet Volume 11.3H, Neutrophils (%) (Auto) 52.8, Lymphocytes (%) (Auto ) 32.3, Monocytes (%) (Auto) 13.3H, Eosinophils (%) (Auto) 0.6, Basophils (%) ( Auto) 1.0, Sodium Level 141, Potassium Level 4.4, Chloride Level 104, Carbon Dioxide Level 26, Anion Gap 11, Blood Urea Nitrogen 31H, Creatinine 1.6H, Estimat Glomerular Filtration Rate , Glucose Level 133H, Calcium Level 9.8 Height (Feet): 5 Height (Inches): 4.00 Weight (Pounds): 183 Objective Elderly WW NCAT supple coarse BS RR abd soft, GT intact Nuero: Confused and agitated when examined Kristel Mojica MD November 29, 2018 09:23
--- NOTE | 2018-11-29 09:31 | Pulmonology Progress Note ---
Assessment/Plan Assessment/Plan IMPRESSION: 1. Sepsis and bacteremia. 2. UTI. 3. COPD. 4. Diabetes mellitus. 5. Chronic G-tube. 6. Dementia. 7. Severe hypernatremia. 8. Acute renal failure. 9. Anemia; improved after prbc; recurrent but nwo Hgb 14; suspect lab error DISCUSSION: 1. Septic shock resolved. Continue broad-spectrum antibiotics. 2. Decubitus. Continue wound care. At this time, no further intervention required. 3. Enteral feedings. Continue enteral feedings and also continue Protonix. 4. DVT prophylaxis. Continue heparin subcu. 5. Hypernatremia. Continue hypotonic fluid. Appreciate nephrology consult. 6. Diabetes mellitus. Continue insulin sliding scale. Seen by endocrinology. 7. COPD. Continue oxygen. 8. Hypertension. 9. Metabolic encephalopathy. 10. Seen by GI for recurrent drop in Hgb The patient is a Full Code. Discussed with nursing staff. The patient has a POLST. I will follow carefully. Maxim East MD Subjective Interval Events: Significant improvement in Hgb? Constitutional: Reports: no symptoms HEENT: Repors: no symptoms Respiratory: Reports: no symptoms Cardiovascular: Reports: no symptoms Gastrointestinal/Abdominal: Reports: no symptoms Genitourinary: Reports: no symptoms Neurologic: Reports: no symptoms Allergies: Coded Allergies: SULFA (SULFONAMIDE ANTIBIOTICS) (Unverified Allergy, Unknown, 09/30/18) COPIED FROM UNCODED Uncoded Allergies: SULFA (Allergy, Unknown, 11/20/18) Objective Last 24 Hour Vital Signs Date Time Temp Pulse Resp B/P (MAP) Pulse Ox O2 Delivery O2 Flow Rate FiO2 11/29/18 09:07 97 108/65 11/29/18 09:00 84 11/29/18 08:00 98.2 95 24 108/65 (79) 97 11/29/18 04:00 98.4 90 20 100/50 (67) 98 11/29/18 04:00 89 11/29/18 00:00 97.9 90 18 107/56 (73) 97 11/29/18 00:00 85 11/28/18 21:02 94 123/67 11/28/18 21:00 Room Air 11/28/18 20:00 97.4 94 18 123/67 (85) 97 11/28/18 20:00 83 11/28/18 16:00 75 11/28/18 16:00 98.8 82 22 126/69 (88) 96 11/28/18 12:00 98.8 82 22 126/69 (88) 96 11/28/18 12:00 75 Intake and Output 11/28/18 11/29/18 19:00 07:00 Intake Total 1920.000 ml 320 ml Output Total 1400 ml 1200 ml Balance 520.000 ml -880 ml Intake Free Water 400 ml IV Total 1160.000 ml Tube Feeding 360 ml 320 ml Output Urine Total 1400 ml 1200 ml # Bowel Movements 4 General Appearance: no acute distress HEENT: normocephalic Respiratory/Chest: chest wall non-tender, lungs clear Cardiovascular: normal peripheral pulses, normal rate Abdomen: normal bowel sounds Laboratory Tests 11/28/18 15:30: Stool Occult Blood [Pending] 11/29/18 05:15: White Blood Count 7.6, Red Blood Count 4.69, Hemoglobin 14.3, Hematocrit 44.8, Mean Corpuscular Volume 96, Mean Corpuscular Hemoglobin 30.5, Mean Corpuscular Hemoglobin Concent 31.9L, Red Cell Distribution Width 16.7H, Platelet Count 166 , Mean Platelet Volume 11.3H, Neutrophils (%) (Auto) 52.8, Lymphocytes (%) (Auto ) 32.3, Monocytes (%) (Auto) 13.3H, Eosinophils (%) (Auto) 0.6, Basophils (%) ( Auto) 1.0, Sodium Level 141, Potassium Level 4.4, Chloride Level 104, Carbon Dioxide Level 26, Anion Gap 11, Blood Urea Nitrogen 31H, Creatinine 1.6H, Estimat Glomerular Filtration Rate , Glucose Level 133H, Calcium Level 9.8 Current Medications Medications (Trade) Dose Ordered Sig/Chandu Route PRN Reason Start Time Stop Time Status Last Admin Dose Admin Aspirin (ASA) 81 mg DAILY GT 11/27/18 09:00 12/27/18 08:59 11/29/18 09:07 Atorvastatin Calcium (Lipitor) 10 mg BEDTIME GT 11/27/18 21:00 12/27/18 20:59 11/28/18 21:02 Chlorhexidine Gluconate (Sue-Hex 2%) 1 applic DAILY@1999 TOPIC 11/26/18 20:00 12/21/18 19:59 11/28/18 21:02 Dextrose 1,000 ml @ 75 mls/hr [id number] IV 11/27/18 08:30 12/27/18 08:29 11/29/18 02:19 Dextrose (Dextrose 50%) 25 ml Q30M PRN IV Hypoglycemia 11/26/18 19:15 12/21/18 19:44 Dextrose (Dextrose 50%) 50 ml Q30M PRN IV Hypoglycemia 11/26/18 19:15 12/21/18 19:44 Heparin Sodium (Porcine) (Heparin 5000 units/ml) 5,000 units EVERY 12 HOURS SUBQ 11/26/18 21:00 12/21/18 08:59 11/29/18 09:08 Insulin Aspart (NovoLOG) Q6HR SUBQ 11/27/18 00:00 12/21/18 11:59 11/28/18 18:34 Insulin Detemir (Levemir) 6 units DAILY SUBQ 11/28/18 09:00 12/21/18 19:44 11/29/18 09:17 Meropenem 500 mg/ Sodium Chloride 55 ml @ 110 mls/hr Q12H IVPB 11/28/18 16:30 12/01/18 04:29 11/29/18 05:30 Metoprolol Tartrate (Lopressor) 25 mg Q12HR GT 11/27/18 09:00 12/27/18 08:59 11/29/18 09:07 Pantoprazole (Protonix) 40 mg DAILY IVP 11/27/18 09:00 12/21/18 08:59 11/29/18 09:07 Vancomycin HCl (Vanco rx to dose) 1 ea DAILY PRN MISC Per rx protocol 11/27/18 09:00 12/21/18 14:59 Vancomycin HCl/ Dextrose 275 ml @ 183.333 mls/hr Q48H IVPB 11/28/18 08:00 12/03/18 07:59 11/28/18 09:05 Maxim East MD November 29, 2018 09:31
--- NOTE | 2018-11-29 09:37 | Nephrology Progress Note ---
Assessment/Plan Assessment/Plan: A/P 1. NAOMY secondary to multifactorial ATN from ischemia/vol depletion and proximal tubule injury from inflammatory cytokines due to sepsis. -Cr stable 1.6. OK for DC from renal point 2. Septic shock. Blood and urine Cxs +ve, Antibiotics per ID 3. Severe volume depletion. DC D5W - free water thru PEG 4. Anemia- stable 5. Hypokalemia- will replace prn basis Subjective Date patient seen: November 29, 2018 Time patient seen: 09:32 ROS Limited/Unobtainable: No Allergies: Coded Allergies: SULFA (SULFONAMIDE ANTIBIOTICS) (Unverified Allergy, Unknown, 09/30/18) COPIED FROM UNCODED Uncoded Allergies: SULFA (Allergy, Unknown, 11/20/18) Subjective Patient awake, agitated and conversant Objective Last 24 Hour Vital Signs Date Time Temp Pulse Resp B/P (MAP) Pulse Ox O2 Delivery O2 Flow Rate FiO2 11/29/18 09:07 97 108/65 11/29/18 09:00 84 11/29/18 08:00 98.2 95 24 108/65 (79) 97 11/29/18 04:00 98.4 90 20 100/50 (67) 98 11/29/18 04:00 89 11/29/18 00:00 97.9 90 18 107/56 (73) 97 11/29/18 00:00 85 11/28/18 21:02 94 123/67 11/28/18 21:00 Room Air 11/28/18 20:00 97.4 94 18 123/67 (85) 97 11/28/18 20:00 83 11/28/18 16:00 75 11/28/18 16:00 98.8 82 22 126/69 (88) 96 11/28/18 12:00 98.8 82 22 126/69 (88) 96 11/28/18 12:00 75 Intake and Output 11/28/18 11/29/18 18:59 06:59 Intake Total 1920.000 ml 425 ml Output Total 1400 ml 1200 ml Balance 520.000 ml -775 ml Intake Free Water 400 ml IV Total 1160.000 ml 75 ml Tube Feeding 360 ml 350 ml Output Urine Total 1400 ml 1200 ml # Bowel Movements 4 Laboratory Tests 11/28/18 15:30: Stool Occult Blood [Pending] 11/29/18 05:15: White Blood Count 7.6, Red Blood Count 4.69, Hemoglobin 14.3, Hematocrit 44.8, Mean Corpuscular Volume 96, Mean Corpuscular Hemoglobin 30.5, Mean Corpuscular Hemoglobin Concent 31.9L, Red Cell Distribution Width 16.7H, Platelet Count 166 , Mean Platelet Volume 11.3H, Neutrophils (%) (Auto) 52.8, Lymphocytes (%) (Auto ) 32.3, Monocytes (%) (Auto) 13.3H, Eosinophils (%) (Auto) 0.6, Basophils (%) ( Auto) 1.0, Sodium Level 141, Potassium Level 4.4, Chloride Level 104, Carbon Dioxide Level 26, Anion Gap 11, Blood Urea Nitrogen 31H, Creatinine 1.6H, Estimat Glomerular Filtration Rate , Glucose Level 133H, Calcium Level 9.8 Height (Feet): 5 Height (Inches): 4.00 Weight (Pounds): 183 General Appearance: no apparent distress EENT: normal ENT inspection Neck: normal alignment, supple Cardiovascular: normal rate, regular rhythm Respiratory/Chest: lungs clear, normal breath sounds Abdomen: non tender, soft Edema: no edema noted Arm (L), no edema noted Arm (R), no edema noted Leg (L), no edema noted Leg (R), no edema noted Pedal (L), no edema noted Pedal (R), no edema noted Generalized Jakub García MD November 29, 2018 09:37
--- NOTE | 2018-11-29 10:28 | NUR ---
NURSE NOTES: RN endorsed to Dr. East that per Bank Worker recommendations - increase Gtube feeding to goal of 60. Per Dr. East, ok to advance to goal of 60. Dr. East assessed pt at bedside, pt to be d/valentino to SNF. Leave cruz catheter on d/t urinary retention since pt came in with it but discontinue the IV access on Left IJ Triple Lumen. upon discharge.
[2018-11-29 12:00] VITALS: BP 129/69
--- NOTE | 2018-11-29 14:06 | NUR ---
*-* INSURANCE *-* UPDATED CLINICALS HAVE BEEN FAXED TO: AUTH# [id number]* NCM: PETRA P:[phone] [facility] F:[phone] FAX CLINICALS
--- NOTE | 2018-11-29 14:14 | NUR ---
DISCHARGE PLANNING Discharge order noted Patient has been referred to [facility] [phone] Await Acceptance and Room Number
[2018-11-29 16:00] VITALS: BP 130/70
--- NOTE | 2018-11-29 16:20 | NUR ---
NURSE NOTES: RN gave report to Emeli from [facility], endorsed medication and discharge information. R IJ d/valentino and wrist band removed per protocol. Scales catheter left intact per order. Sacral redness and bilateral pinkish heels noted upon discharge, WCP taken per protocol. No belongings with patient - signed with another RN d/t patient's AMS.
--- NOTE | 2018-11-30 03:30 | Progress Note ---
DATE: 11/29/2018 CARDIOLOGY PROGRESS NOTE SUBJECTIVE: The patient has been transfused yesterday. Hemoglobin is now elevated. The patient has no shortness of breath or chest pain. OBJECTIVE: VITAL SIGNS: Blood pressure 108/65, pulse 97,, and respirations 24. Monitored rhythm, sinus. LUNGS: Bilateral breath sounds. Diminished at bases. HEART: Regular rhythm and rate. Normal S1, S2 with no new murmur. ABDOMEN: Obese and soft. EXTREMITIES: With dependent edema. LABORATORY DATA: White count 7.6 and hemoglobin 14. Potassium 4.4, BUN 31, and creatinine 1.6. IMPRESSION: 1. Sepsis with shock, recovered. 2. Dehydration and hypernatremia corrected. 3. Hypovolemia and shock, recovered. 4. Cerebrovascular disease with dementia, dysphagia, and gastrostomy tube stable. 5. Acute on chronic diastolic congestive heart failure, compensated. 6. Obesity. 7. Sulfa allergy. 8. Secondary sinus tachycardia, resolved. PLAN: 1. Stable for subacute level of care. 2. Transfer noted to snf facility. 3. Discharge medication regimen reviewed and reconciled. 4. No outpatient cardiovascular studies or workup presently indicated. Robert Cuellar M.D. DR: ANNABELLA JOB#: [id number] CC:
--- NOTE | 2018-11-30 16:09 | Discharge Summary ---
Discharge Summary Discharge Summary _ DATE OF ADMISSION: 11/20/2018 DATE OF DISCHARGE: 11/29/2018 DISCHARGED BY: Dr. Maxim East CONSULTANTS: Dr. Jack Mojica [facility] HOSPITAL COURSE: Patient is an 83-year-old female who is a custodial resident. She was transported from custodial due to altered mental status and cough. Patient was not able to provide any further history. She has history of renal failure, COPD, diastolic CHF, hypertension, diabetes mellitus, dementia, chronic encephalopathy, hypertension, GERD, history of duodenal ulcer and osteoarthrosis. On evaluation at the ED, patient was hypotensive. Blood work showed WBC 13. Hemoglobin of 7 and hematocrit 25. Sodium 163, chloride 124. Potassium was normal. BUN was 113 and creatinine was 3.4. Lactic acid was elevated to 2.1. Troponin was negative. Urinalysis showed 2+ protein of 5+ blood, 2+ leukocyte esterase, too many to count RBC and many to count WBC. EKG showed sinus tachycardia. Chest x-ray done did not show any acute process. Patient continued to be hypotensive. She was given fluid bolus. IV got dislodged prior to full fluid bolus. A central line was then inserted to the right IJ. Patient was reassessed and continued to be hypotensive. She was a started on levophed. Patient was then admitted to ICU for septic shock. ID was consulted. She was started empirically on Zosyn and vancomycin.. Patient has izx-hl-kjexfgy diabetes. Blood glucose was monitored. She was placed on NovoLog sliding scale. Levemir was added. Levemir dose was adjusted. Kidney function was monitored. Patient had acute kidney injury secondary to multifactorial ATN from ischemia and volume depletion and proximal tibial injury from inflammatory cytokines due to sepsis. She was placed on heparin for DVT prophylaxis. She was resumed on enteral feedings and was given GI protectant. Blood culture showed growth of MRSA. Patient had echocardiogram done. There was low likelihood of valvular pathology seen. There was no echocardiographic criteria to suggest endocarditis. Surveillance blood cultures were done. She was noted to come in with redness on bilateral heels and sacral area with no opening. She was given skin care. She was taken off IV pressors. Blood pressure improved. She was eventually transferred to [facility]. Urine culture showed growth of ESBL E. coli. She had a drop in hemoglobin. She was given blood transfusion. Surveillance blood cultures were negative. She was recommended continue IV vancomycin then p.o. doxycycline for 10 days. She continued to have recurrent anemia. GI was consulted. Anemia work-up was done. Patient had low serum iron and TIBC. She had normal vitamin B12 and folate. Social service was consulted to locate family members, for possible GI procedures if needed. Patient currently is non-represented per custodial. No next of kin. Hemoglobin levels stabilized. Stool OB positive. Patient did not require any emergent endoscopy. She was eventually discharged back to custodial. FINAL DIAGNOSES: Sepsis with shock, recovered MRSA bacteremia ESBL E. coli UTI Acute kidney injury secondary to multifactorial ATN Severe volume depletion with dehydration and hypernatremia, corrected Acute on chronic diastolic congestive heart failure, compensated Secondary sinus tachycardia Cerebrovascular disease with dementia, dysphagia and G-tube Drop in hemoglobin requiring blood transfusion Recurrent anemia Diabetes mellitus Hypokalemia GERD Osteoarthritis Obesity Toxic metabolic encephalopathy Lactic acidosis DISPOSITION: Patient was discharged to a SNF. DISCHARGE MEDICATIONS: Refer to Discharge Medication List. I have been assigned to complete a discharge summary on this account, I was not involved with the patient's management. Raquel Whiting NP November 30, 2018 16:09
== END 2018-11-29 17:42 | DRG 871 ==
LOC: EDBD 16:23 → EMR 17:10 → ICU 17:18 → EDBEDREQSVC 20:40 → EDBEDREQ 20:40 → 2W 11-24 22:50 → 2E 11-26 19:14
PROC: 30233N1 Transfusion of Nonautologous Red Blood Cells into Peripheral Vein, Percutaneous Approach (ICD-10-PCS; principal; 2018-11-23)
DX: A41.02 Sepsis due to Methicillin resistant Staphylococcus aureus (principal); R65.21 Severe sepsis with septic shock; N17.0 Acute kidney failure with tubular necrosis; E43 Unspecified severe protein-calorie malnutrition; J69.0 Pneumonitis due to inhalation of food and vomit; I50.33 Acute on chronic diastolic (congestive) heart failure; G92 Toxic encephalopathy; E87.0 Hyperosmolality and hypernatremia; Z43.1 Encounter for attention to gastrostomy; I13.0 Hypertensive heart and chronic kidney disease with heart failure and stage 1 through stage 4 chronic kidney disease, or unspecified chronic kidney disease; N39.0 Urinary tract infection, site not specified; Z79.82 Long term (current) use of aspirin; Z79.4 Long term (current) use of insulin; Z88.2 Allergy status to sulfonamides; J44.9 Chronic obstructive pulmonary disease, unspecified; M19.90 Unspecified osteoarthritis, unspecified site; E11.9 Type 2 diabetes mellitus without complications; F03.90 Unspecified dementia, unspecified severity, without behavioral disturbance, psychotic disturbance, mood disturbance, and anxiety; K21.9 Gastro-esophageal reflux disease without esophagitis; E86.9 Volume depletion, unspecified; R13.10 Dysphagia, unspecified; E11.65 Type 2 diabetes mellitus with hyperglycemia; E11.22 Type 2 diabetes mellitus with diabetic chronic kidney disease; N18.9 Chronic kidney disease, unspecified; B96.89 Other specified bacterial agents as the cause of diseases classified elsewhere; K27.9 Peptic ulcer, site unspecified, unspecified as acute or chronic, without hemorrhage or perforation; B96.20 Unspecified Escherichia coli [E. coli] as the cause of diseases classified elsewhere; Z16.12 Extended spectrum beta lactamase (ESBL) resistance; D63.1 Anemia in chronic kidney disease; I49.1 Atrial premature depolarization; E86.0 Dehydration
CPT/HCPCS: 36415; 36600; 71045; 80048; 80053; 80202; 81003; 82270; 82550; 82607; 82746; 82803; 82962; 83540; 83550; 83605; 83735; 83880; 84484; 85007; 85025; 85610; 85730; 86710; 86850; 86900; 86901; 86920; 87040; 87081; 87086; 87181; 93005; 93306; 94640; 94664; 94760; 96361; 96365; 96368; 96375; 99291; J1815; J7620; J8499; S5561

== ENCOUNTER 2019-02-23 07:32 | Inpatient (IN) | payer OTHER, MEDICAID ==
[2019-02-23] VITALS (17 sets, daily range): BP systolic 74–148; BP diastolic 24–67
[~2019-02-23] VITALS: Ht 172.7 cm; Wt 79.8 kg
[2019-02-23] MEDS ORDERED: Lidocaine 1% 10mg/ml/EPI 0.01mg/ml 20ml INJ ONE (07:37)
[2019-02-23] MEDS ORDERED: CARAFATE1 GM/10 M1 GT (07:49)
[2019-02-23] MEDS ORDERED: URECHOLINE10 MG GT (07:49)
[2019-02-23] MEDS ORDERED: CARDURA1 MG GT (07:49)
--- NOTE | 2019-02-23 08:00 | NUR ---
ED Nurse Note: Patient was brought in to ER at 0720 by ambulance from [facility] due to low blood pressure and fever. Patient is non verbal and opening eyes spontaneously. Rectal temperture upon arrival 100.6F and pt is getting 0.9 NS bolus via 22G iv line on Rt wrist inserted by EMS prior to arrival. another lv line on Lt hand 20 G inserted upon arrival. ERMD at bedside and intubation initiated. Etomidate 20mg ivp given at 0751. Rocuronium 50mg given at 0752. intuation with 7.5 Shiley inserted on Rt side at 22cm. Addendum: 02/23/19 at 0843 by [email or web address] ED Nurse Note: Patient was brought in to ER at 0720 by ambulance from [facility] due to low blood pressure and fever. Patient is non verbal and opening eyes spontaneously. Rectal temperture upon arrival 100.6F and pt is getting 0.9 NS bolus via 22G iv line on Rt wrist inserted by EMS prior to arrival. another lv line on Lt hand 20 G inserted upon arrival. ERMD at bedside and intubation initiated. Etomidate 20mg ivp given at 0751. Rocuronium 50mg given at 0752. intuation with 7.0mm Shiley inserted on Rt side at 22cm.
--- NOTE | 2019-02-23 08:01 | NUR ---
ED Nurse Note: ermd has verbal order of lidocaine with epi for central line placement and removed form the pyxis.
--- NOTE | 2019-02-23 08:02 | NUR ---
ED Nurse Note: pt has G-tube.
--- NOTE | 2019-02-23 08:13 | NUR ---
ED Nurse Note: no skin wound on anterior body. will check posterial body skin after central line inserted.
--- NOTE | 2019-02-23 08:13 | NUR ---
ED Nurse Note: ERMD at bedside inserting central line.
[2019-02-23] MEDS ORDERED: Sodium Chloride 2,200 ML IVLG ONE (08:30)
[2019-02-23] MEDS ORDERED: Vancomycin 1.5 GM in NS 275 ML IVPB ONE (08:30)
[2019-02-23] MEDS ORDERED: Cefepime HCl 2 GM in NS 110 ML IV SCH (08:30)
--- NOTE | 2019-02-23 08:33 | Emergency Room Report ---
History of Present Illness General Chief Complaint: Fever Source: Medical Record Present Illness HPI Patient is an 84-year-old female brought in by EMS after increased fever and altered mental status. Patient had been noted to be more obtunded. She had prior history of dementia. Patient was noted to have fever up to 100.6. Patient was brought to the hospital and was noted to be hypotensive by EMS and was started on IV fluids. She had prior history of G-tube dependence. History is limited by patient's mental status and confusion. Patient was noted to have blood sugar greater than 200 initially. Allergies: Coded Allergies: SULFA (SULFONAMIDE ANTIBIOTICS) (Unverified Allergy, Unknown, 09/30/18) COPIED FROM UNCODED Uncoded Allergies: SULFA (Allergy, Unknown, 11/20/18) Patient History Reviewed Nursing Documentation: PMH: Agreed; PSxH: Agreed Nursing Documentation-PMH Hx Cardiac Problems: Yes - CHF Hx Hypertension: Yes Hx Diabetes: Yes - type 2 Hx Cancer: No Hx Gastrointestinal Problems: Yes Hx Neurological Problems: Yes Hx Dementia: Yes Review of Systems All Other Systems: limited - Review of systems: Review systems is limited by patient's being a poor historian Physical Exam Vital Signs Date Time Temp Pulse Resp B/P (MAP) Pulse Ox O2 Delivery O2 Flow Rate FiO2 02/23/19 07:27 100.8 108 19 98/58 (71) 93 Non-Rebreather 15.0 02/23/19 08:14 100 General Appearance: severe distress, obese, Chronically Ill Eyes: bilateral eye PERRL ENT: dry mucus membranes, other - large amount of secretions in oropharynx Neck: supple, limited range of motion Respiratory: crackles, other - tachypnea Cardiovascular #1: no edema, bradycardia Gastrointestinal: non tender, soft, other - gtube site c/d/i Musculoskeletal: decreased range of motion, other - moves left upper extremity Neurologic: other - poor alertness, diminished gag reflex Skin: no rash Procedures Critical Care Time Critical Care Time Patient had a critical medical condition which untreated could potentially result in life or limb threatening injury. Total critical care time excluding procedures approximately 45 minutes. Central Line Central Line : Consent: Emergent Central Line Lumen: triple Maximal Sterile Barrier Tech: yes cap, yes mask, yes sterile gown, yes sterile gloves, yes large sterile sheet, yes hand hygiene, yes chlorhexidine prep Central Line Postion: internal jugular (R) Anesthesia: local cc's of anesthesia: 4 Complications: none Central Line Post Position: sutured, good blood return, position confirmed w / CXR Attempts: Other - 3 Patient Tolerated: Well Complications: None Intubation Intubation : Consent: Verbal Time of Intubation: 08:10 Tube Size (cm): 7.0 Medications: Etomidate, Rocuronium Breath Sounds after Intubation: left greater than right Intubation Complications: no complications Post Intubation Xray: Yes Attempts: One Patient Tolerated: Well Complications: None Medical Decision Making Diagnostic Impression: Primary Impression: Pneumonia Additional Impressions: Severe sepsis Respiratory failure Dehydration Hypernatremia Ethmoid sinusitis Diabetes ER Course Patient presented for altered mental status. Differential diagnosis include was not limited to sepsis, pneumonia, urinary tract infection, CVA, encephalopathy among others. Because of complexity of patient's case laboratory testing and imaging studies were ordered. Patient was noted to be markedly obtunded and tachypneic. Patient was intubated for airway protection. Patient was noted to have initial hypotension was started on IV fluids. A right internal jugular central venous catheter was placed due to likely pressor management due to previous episode of hypotension. Patient was noted to have some improvement in blood pressure after IV hydration.Patient was started on IV antibiotics. Dr. Jakub García was contacted for Dr. East for inpatient management due to capitated physician. Labs Test 02/23/19 08:05 02/23/19 09:23 White Blood Count 19.1 K/UL (4.8-10.8) Red Blood Count 3.23 M/UL (4.20-5.40) Hemoglobin 10.3 G/DL (12.0-16.0) Hematocrit 35.3 % (37.0-47.0) Mean Corpuscular Volume 109 FL (80-99) Mean Corpuscular Hemoglobin 31.9 PG (27.0-31.0) Mean Corpuscular Hemoglobin Concent 29.1 G/DL (32.0-36.0) Red Cell Distribution Width 17.1 % (11.6-14.8) Platelet Count 103 K/UL (150-450) Mean Platelet Volume 10.7 FL (6.5-10.1) Neutrophils (%) (Auto) % (45.0-75.0) Lymphocytes (%) (Auto) % (20.0-45.0) Monocytes (%) (Auto) % (1.0-10.0) Eosinophils (%) (Auto) % (0.0-3.0) Basophils (%) (Auto) % (0.0-2.0) Differential Total Cells Counted 100 Neutrophils % (Manual) 76 % (45-75) Lymphocytes % (Manual) 15 % (20-45) Monocytes % (Manual) 7 % (1-10) Eosinophils % (Manual) 0 % (0-3) Basophils % (Manual) 1 % (0-2) Band Neutrophils 1 % (0-8) Nucleated Red Blood Cells 1 /100 WBC Platelet Estimate Decreased Platelet Morphology Normal Hypochromasia 1+ Anisocytosis 1+ Macrocytosis 1+ Sodium Level 169 MMOL/L (136-145) Potassium Level 3.2 MMOL/L (3.5-5.1) Chloride Level 133 MMOL/L (98-107) Carbon Dioxide Level 28 MMOL/L (21-32) Anion Gap 9 mmol/L (5-15) Blood Urea Nitrogen 121 mg/dL (7-18) Creatinine 2.3 MG/DL (0.55-1.30) Estimat Glomerular Filtration Rate mL/min (>60) Glucose Level 426 MG/DL (74-106) Lactic Acid Level 2.40 mmol/L (0.4-2.0) Calcium Level 7.9 MG/DL (8.5-10.1) Phosphorus Level 1.8 MG/DL (2.5-4.9) Magnesium Level 4.1 MG/DL (1.8-2.4) Total Bilirubin 0.5 MG/DL (0.2-1.0) Aspartate Amino Transf (AST/SGOT) 29 U/L (15-37) Alanine Aminotransferase (ALT/SGPT) 17 U/L (12-78) Alkaline Phosphatase 81 U/L (46-116) Total Creatine Kinase 263 U/L (26-308) Creatine Kinase MB 0.5 NG/ML (0.0-3.6) Creatine Kinase MB Relative Index 0.1 Troponin I 0.093 ng/mL (0.000-0.056) Pro-B-Type Natriuretic Peptide 540 pg/mL (0-125) Total Protein 6.3 G/DL (6.4-8.2) Albumin 2.3 G/DL (3.4-5.0) Globulin 4.0 g/dL Albumin/Globulin Ratio 0.6 (1.0-2.7) Triglycerides Level 645 MG/DL (30-150) Lipase 328 U/L (73-393) Arterial Blood pH 7.458 (7.350-7.450) Arterial Blood Partial Pressure CO2 32.6 mmHg (35.0-45.0) Arterial Blood Partial Pressure O2 310.3 mmHg (75.0-100.0) Arterial Blood HCO3 22.6 mmol/L (22.0-26.0) Arterial Blood Oxygen Saturation 99.1 % (95-100) Arterial Blood Base Excess -0.8 (-2-2) Cam Test Positive EKG Diagnostic Results Rate: tachycardiac Rhythm: NSR ST Segments: no acute changes Last Vital Signs Date Time Temp Pulse Resp B/P (MAP) Pulse Ox O2 Delivery O2 Flow Rate FiO2 02/23/19 08:17 98 16 100 02/23/19 08:14 100 Non-Rebreather 15.0 02/23/19 08:00 100.8 108/61 Status: improved Disposition: ADMITTED INPATIENT Condition: Critical Referrals: NON PHYSICIAN (PCP) Rocael Solares MD Feb 23, 2019 08:33
--- NOTE | 2019-02-23 08:37 | NUR ---
ED Nurse Note: X-ray at bedside.
[2019-02-23 08:44] LABS: HEMATOCRIT 35.3 % (37.0-47.0); HEMOGLOBIN 10.3 G/DL (12.0-16.0); MEAN CORPUSCULAR VOLUME 109 FL (80-99); PLATELET COUNT 103 K/UL (150-450); RED BLOOD COUNT 3.23 M/UL (4.20-5.40); RED CELL DISTRIBUTION WIDTH 17.1 % (11.6-14.8); WHITE BLOOD COUNT 19.1 K/UL (4.8-10.8)
--- NOTE | 2019-02-23 08:57 | NUR ---
ED Nurse Note: Propofol initiated at rate of 5mcg/kg/min. VSS as documented. RASS score +1.
--- NOTE | 2019-02-23 08:59 | NUR ---
ED Nurse Note: Pt down to CT for imaging accompanied by RN and RT.
--- NOTE | 2019-02-23 09:10 | NUR ---
ED Nurse Note: pt came back from head CT with 1 RN and 1 RT in stable condition.
--- NOTE | 2019-02-23 09:12 | NUR ---
ED Nurse Note: first 15 mins vs checked and documented. RASS score reached -2 and will stay the same dose of Propofol.
[2019-02-23 09:17] LABS: ALANINE AMINOTRANSFERASE 17 U/L (12-78); ALBUMIN 2.3 G/DL (3.4-5.0); ALBUMIN/GLOBULIN RATIO 0.6 (1.0-2.7); ALKALINE PHOSPHATASE 81 U/L (46-116); ANION GAP 9 mmol/L (5-15); ASPARTATE AMINO TRANSFERASE 29 U/L (15-37); BILIRUBIN,TOTAL 0.5 MG/DL (0.2-1.0); BLOOD UREA NITROGEN 121 mg/dL (7-18); CALCIUM 7.9 MG/DL (8.5-10.1); CARBON DIOXIDE 28 MMOL/L (21-32); CHLORIDE 133 MMOL/L (98-107); CKMB 0.5 NG/ML (0.0-3.6); CREATINE KINASE 263 U/L (26-308); CREATININE 2.3 MG/DL (0.55-1.30); PHOSPHORUS 1.8 MG/DL (2.5-4.9); POTASSIUM 3.2 MMOL/L (3.5-5.1); TRIGLYCERIDES 645 MG/DL (30-150)
[2019-02-23 09:18] LABS: SODIUM 169 MMOL/L (136-145)
--- NOTE | 2019-02-23 09:30 | NUR ---
ED Nurse Note: FC changed to 16Fr and urine sample from new FC sent to the lab.
--- NOTE | 2019-02-23 09:31 | NUR ---
ED Nurse Note: redness on coccyx without open area noted.
--- NOTE | 2019-02-23 09:41 | Diagnostic Imaging Report ---
EXAM: XR Chest, 1 View CLINICAL HISTORY: TUBE PLCMT TECHNIQUE: Frontal view of the chest. COMPARISON: Chest x-ray, 11/24/18 FINDINGS: Lungs: Mild right upper lobe interstitial prominence. 3 mm nodule right lung base, stable. Pleural space: Unremarkable. No pneumothorax. Heart: Mild cardiomegaly. Mediastinum: Unremarkable. Bones/joints: Mild degenerative changes of the spine. Tubes, lines and devices: Endotracheal tube 2.8 cm above the ludwig in good position. Right IJ catheter at the mid SVC. IMPRESSION: 1. Endotracheal tube 2.8 cm above the ludwig in good position. 2. Mild cardiomegaly. 3. Mild right upper lobe interstitial prominence.
--- NOTE | 2019-02-23 09:55 | Diagnostic Imaging Report ---
EXAM: CT Head Without Intravenous Contrast CLINICAL HISTORY: AMS TECHNIQUE: Axial computed tomography images of the head/brain without intravenous contrast. CTDI is 70.38 mGy and DLP is 1481 mGy-cm. One or more of the following dose reduction techniques were used: automated exposure control, adjustment of the mA and/or kV according to patient size, use of iterative reconstruction technique. COMPARISON: No relevant prior studies available. FINDINGS: No intracranial hemorrhage, abnormal intra- or extra-axial collections or parenchymal lesions are seen. There are involutional changes with prominence of the sulci, basal cisterns and ventricles. Scattered white matter hypoattenuations are present, likely from small vessel disease. The smith-white differentiation is preserved. No evidence of mass effect, midline shift, or edema. The osseous structures are unremarkable. Moderate ethmoid sinus mucosal thickening and fluid. Small fluid level in the right sphenoid sinus. Mastoid air cells are clear. IMPRESSION: 1. No acute intracranial process. 2. Involutional changes with small vessel disease. 3. Moderate ethmoid sinus mucosal thickening and fluid. Small fluid level in the right sphenoid sinus.
--- NOTE | 2019-02-23 10:00 | NUR ---
ED Nurse Note: Rt wrist 22 G infiltrated. removed without complication.
[2019-02-23 10:19] LABS: APPEARANCE,URINE CLEAR; BILIRUBIN, URINE NEGATIVE (NEGATIVE); COLOR,URINE PALE YELLOW; GLUCOSE, URINE (UA) 4+ (NEGATIVE); KETONES,URINE NEGATIVE (NEGATIVE); LEUKOCYTE ESTERASE ,URINE 1+ (NEGATIVE); NITRITE,URINE NEGATIVE (NEGATIVE); PH,URINE 8 (4.5-8.0); PROTEIN,URINE 3+ (NEGATIVE); UROBILINOGEN,URINE NORMAL MG/DL (0.0-1.0)
--- NOTE | 2019-02-23 10:24 | NUR ---
ED Nurse Note: called for the report. DAKOTA Jones is with another patient. He will call me back.
--- NOTE | 2019-02-23 10:49 | NUR ---
ED Nurse Note: Report given to DAKOTA Jones
--- NOTE | 2019-02-23 10:50 | NUR ---
ED Nurse Note: RT paged for transfer pt to ICU. he is drawing blood for ABG. will be here when he's done.
--- NOTE | 2019-02-23 11:05 | History & Physical ---
History and Physical History & Physicial History and Physical HPI Patient is an 84-year-old female admitted with Pneumonia, Dehydration from MS, noted to have increased fever and altered mental status. Patient had been noted to be more obtunded. She had prior history of dementia. Patient was noted to have fever up to 100.6. Patient was brought to the hospital and was noted to be hypotensive by EMS and was started on IV fluids. She had prior history of G-tube dependence. History is limited by patient's mental status and confusion. Patient was noted to have blood sugar greater than 200 initially. Allergies: SULFA (SULFONAMIDE ANTIBIOTICS) ( PMH: Hx Cardiac Problems: Yes - CHF Hx Hypertension: Yes Hx Diabetes: Yes - type 2 Hx Cancer: No Hx Gastrointestinal Problems: Yes Hx Neurological Problems: Yes Hx Dementia: Yes All Other Systems: limited - Physical Exam Vital Signs Noted Date Time Temp Pulse Resp B/P (MAP) Pulse Ox O2 Delivery O2 Flow Rate FiO2 02/23/19 07:27 100.8 108 19 98/58 (71) 93 Non-Rebreather 15.0 02/23/19 08:14 100 General Appearance: severe distress, obese, Chronically Ill Eyes: bilateral eye PERRL ENT: dry mucus membranes, ETT Neck: supple, limited range of motion Respiratory: crackles, other - tachypnea, HS1, HS2 RRR Cardiovascular: no edema, bradycardia Gastrointestinal: non tender, soft, other - gtube site c/d/i Musculoskeletal: decreased range of motion, other - moves left upper extremity Neurologic: other - poor alertness, diminished gag reflex Skin: no rash Impression: Pneumonia Severe sepsis Respiratory failure Dehydration Hypernatremia Ethmoid sinusitis Diabetes Plan IV fluids. IV AB ISS Monitor labs ACV PPX Renal Consult Labs Test 02/23/19 08:05 02/23/19 09:23 White Blood Count 19.1 K/UL (4.8-10.8) Red Blood Count 3.23 M/UL (4.20-5.40) Hemoglobin 10.3 G/DL (12.0-16.0) Hematocrit 35.3 % (37.0-47.0) Mean Corpuscular Volume 109 FL (80-99) Mean Corpuscular Hemoglobin 31.9 PG (27.0-31.0) Mean Corpuscular Hemoglobin Concent 29.1 G/DL (32.0-36.0) Red Cell Distribution Width 17.1 % (11.6-14.8) Platelet Count 103 K/UL (150-450) Mean Platelet Volume 10.7 FL (6.5-10.1) Neutrophils (%) (Auto) % (45.0-75.0) Lymphocytes (%) (Auto) % (20.0-45.0) Monocytes (%) (Auto) % (1.0-10.0) Eosinophils (%) (Auto) % (0.0-3.0) Basophils (%) (Auto) % (0.0-2.0) Differential Total Cells Counted 100 Neutrophils % (Manual) 76 % (45-75) Lymphocytes % (Manual) 15 % (20-45) Monocytes % (Manual) 7 % (1-10) Eosinophils % (Manual) 0 % (0-3) Basophils % (Manual) 1 % (0-2) Band Neutrophils 1 % (0-8) Nucleated Red Blood Cells 1 /100 WBC Platelet Estimate Decreased Platelet Morphology Normal Hypochromasia 1+ Anisocytosis 1+ Macrocytosis 1+ Sodium Level 169 MMOL/L (136-145) Potassium Level 3.2 MMOL/L (3.5-5.1) Chloride Level 133 MMOL/L (98-107) Carbon Dioxide Level 28 MMOL/L (21-32) Anion Gap 9 mmol/L (5-15) Blood Urea Nitrogen 121 mg/dL (7-18) Creatinine 2.3 MG/DL (0.55-1.30) Estimat Glomerular Filtration Rate mL/min (>60) Glucose Level 426 MG/DL (74-106) Lactic Acid Level 2.40 mmol/L (0.4-2.0) Calcium Level 7.9 MG/DL (8.5-10.1) Phosphorus Level 1.8 MG/DL (2.5-4.9) Magnesium Level 4.1 MG/DL (1.8-2.4) Total Bilirubin 0.5 MG/DL (0.2-1.0) Aspartate Amino Transf (AST/SGOT) 29 U/L (15-37) Alanine Aminotransferase (ALT/SGPT) 17 U/L (12-78) Alkaline Phosphatase 81 U/L (46-116) Total Creatine Kinase 263 U/L (26-308) Creatine Kinase MB 0.5 NG/ML (0.0-3.6) Creatine Kinase MB Relative Index 0.1 Troponin I 0.093 ng/mL (0.000-0.056) Pro-B-Type Natriuretic Peptide 540 pg/mL (0-125) Total Protein 6.3 G/DL (6.4-8.2) Albumin 2.3 G/DL (3.4-5.0) Globulin 4.0 g/dL Albumin/Globulin Ratio 0.6 (1.0-2.7) Triglycerides Level 645 MG/DL (30-150) Lipase 328 U/L (73-393) Arterial Blood pH 7.458 (7.350-7.450) Arterial Blood Partial Pressure CO2 32.6 mmHg (35.0-45.0) Arterial Blood Partial Pressure O2 310.3 mmHg (75.0-100.0) Arterial Blood HCO3 22.6 mmol/L (22.0-26.0) Arterial Blood Oxygen Saturation 99.1 % (95-100) Arterial Blood Base Excess -0.8 (-2-2) Cam Test Positive EKG: Rate: tachycardiac Rhythm: NSR ST Segments: no acute changes CXR: noted Robert Cadena MD Feb 23, 2019 11:05
--- NOTE | 2019-02-23 11:30 | NUR ---
ED Nurse Note: Endorsed pt. to Robert RN. Propfol drip stays at 5mcg/kg/min. No s/s of acute distress noted during the transfer
--- NOTE | 2019-02-23 11:30 | NUR ---
NURSE NOTES: Patient received report from Hilton. patient placed in room 246-E with right IJ TLC running propofol at 5mcg/kg/min, Propofol drip discontinue due to BP of 74/33, HR 92 and RR of 20 with saturations of 99%. patient is difficult to arouse with deep pain stimuli at this time. remains breathing above ventilator at RR of 20 but is unable to open eyes.
--- NOTE | 2019-02-23 11:50 | NUR ---
NURSE NOTES: Dr. conde called for admission orders, reviewed medication reconciliations and will place orders into patient chart. patient Propofol drip remains off, patient BP is 98/46. patient doesnot respond to deep pain sitmuli, hands are at 0/5 with no tone or muscle twitch with pain stimuli, patient remains on ventilator with setting of AC 16, TV: 450, FIO2 40% with peep of 5.
[2019-02-23] MEDS ORDERED: Acetaminophen 650mg/20.3ml NG PRN ×2 (12:15)
[2019-02-23] MEDS ORDERED: Miralax 17gm pkt ORAL PRN (12:15)
[2019-02-23] MEDS ORDERED: D5W w/KCl 20mEq 1,000 ML IV SCH (13:00)
--- NOTE | 2019-02-23 13:15 | NUR ---
NURSE NOTES: Dr. Membreno is covering Dr. East as primary and financial management consultant, he consulted Dr. Dillard for Infectious disease, Dr. Cadena for pulmonary, and Dr. Baron for cardiology, reviewed orders given by Dr. Cadena with Dr Membreno, then orders placed on eMar,
--- NOTE | 2019-02-23 13:50 | NUR ---
NURSE NOTES: Dr. García made aware of patient blood sugar level of 432, wants to initiate NovoLog subq with moderate sliding scale instead of placing patient on insulin drip. no further orders given.
--- NOTE | 2019-02-23 14:45 | NUR ---
NURSE NOTES: Dr. Waterman reviewed patient chart and ordered to have 1/2NS with potassium chloride and phosphate to be run at 175ml/hr. also changed Accu check to be done q3hrs. until bs reaches below 200. also placed additional labs for morning analysis.
[2019-02-23] MEDS: Zosyn 3.375gm q12h **Extended infusion IVPB SCH ×4 (15:03→23:09)
[2019-02-23] MEDS: Albuterol/Ipratropium 3ml neb HHN SCH ×3 (15:29→23:13)
[2019-02-23] MEDS ORDERED: POTASSIUM PHOSPHATE IV SCH (15:30)
[2019-02-23] MEDS ORDERED: POTASSIUM CHLORIDE IV SCH (15:30)
[2019-02-23] MEDS ORDERED: 1/2 NS IV SCH (15:30)
[2019-02-23] MEDS: NovoLOG Insulin Flexpen SUBQ SCH ×4 (15:53→23:51)
[2019-02-23] MEDS ORDERED: NovoLOG Insulin Flexpen SUBQ SCH ×2 (16:30→16:50)
[2019-02-23 16:56] LABS: HEMATOCRIT 30.3 % (37.0-47.0); HEMOGLOBIN 9.5 G/DL (12.0-16.0); MEAN CORPUSCULAR VOLUME 105 FL (80-99); PLATELET COUNT 98 K/UL (150-450); RED BLOOD COUNT 2.89 M/UL (4.20-5.40); WHITE BLOOD COUNT 18.6 K/UL (4.8-10.8)
[2019-02-23 17:12] LABS: ANION GAP 9 mmol/L (5-15); BLOOD UREA NITROGEN 113 mg/dL (7-18); CALCIUM 7.7 MG/DL (8.5-10.1); CARBON DIOXIDE 27 MMOL/L (21-32); CHLORIDE 135 MMOL/L (98-107); CREATININE 2.2 MG/DL (0.55-1.30); POTASSIUM 3.6 MMOL/L (3.5-5.1)
[2019-02-23 17:13] LABS: SODIUM 171 MMOL/L (136-145)
[2019-02-23] MEDS: Acetaminophen 650mg/20.3ml GT PRN (17:37)
--- NOTE | 2019-02-23 17:50 | NUR ---
NURSE NOTES: Dr. foreman made aware of patient sodium level 171, ordered to have 200ml water flushed q4hrs, Dr. Dr. cowan made aware of patient na level of 171, ordered to have patient to return to D5W at 100ml/hr. also ordered additional potassium phosphate with 15MM one time dose. clarified of having the following consults of Tammi covering for for pulmonary, Filsoof as cardiology, Dr. Chavarria covering for as infectious disease and Dr. desir covering for primary Dr. East as primary and neurology.
[2019-02-23] MEDS ORDERED: Piperacillin/Tazobactam 2.25 GM in D5W 55 ML IVPB SCH (18:00)
[2019-02-23] MEDS: Bethanechol 10mg Tab ORAL SCH (18:20)
[2019-02-23] MEDS: Doxycycline Hyclate 100 MG in D5W 110 ML IV SCH (18:24)
--- NOTE | 2019-02-23 19:04 | NUR ---
CASE MANAGEMENT: REVIEW 84Y/F ROSEANNA FROM [facility] CC: LOW BP 80/40 SI: RESP FAILURE . PNA . SEPSIS . DEHYDRATION T 100.8 HR 108 RR 19 BP 98/58 SAT 98% MECH VENT FIO2 100 WBC 19.1 H/H 9.5/30.3 NA 171 GLUCOSE 444 IS: ZOSYN IV Q12HR FENTANYL IV Q24HR ALBUTEROL HHN Q4HR NOVOLOG SUBQ Q3HR DOXYCYCLINE IV Q12HR K PHOS NS IVF X1 PATIENT ADMITTED TO ICU 02/23/2019 DCP: PATIENT IS FROM [facility]
--- NOTE | 2019-02-23 19:15 | NUR ---
RESPIRATORY NOTE: Received pt. on 840 vent. Vent settings are: A/C rate of 12, Vt 400, FI02 40%, PEEP +5. No respiratory distress noted, pt. sP02 @ 100%. Vent plugged on red outlet. Will continue to monitor pt.
[2019-02-23] MEDS ORDERED: Potassium Phosphate 15 MM in NS 275 ML IV ONE (19:30)
--- NOTE | 2019-02-23 19:30 | NUR ---
NURSE NOTES: Received pt in no apparent distress. Asleep, withdraws to pain. Orally intubated with #7 ETT placed over right lip at 22cm. Noted vent settings of AC12 TV400 fiO2 .40 peep 5; saturating 100%. SEcretions thick tannish, small amt. Chest sounds with scattered rhonchi. weak, BLE stiff. NSR, temp 99.4 axillary, cooling measures continues. GT intact, GTF with Glucerna 1.2 infuses at 15ml/h with 0 residuals. Right IJ TLC intact. IV of D5W running at 100ml/h. FC patent, UOP clear straw, 30-40ml/h. Skin intact. Will continue to monitor
--- NOTE | 2019-02-23 19:35 | NUR ---
HAND-OFF: Report given to DAKOTA Madsen. remains on D5W at 100ml/hr running through right IJ TLC. patient remains on ventilator setting of AC12, TV: 400, FIO2 40% with peep of 5.
[2019-02-23] MEDS ORDERED: Zemuron 50mg/5ml Inj IV ONE (20:44)
[2019-02-23] MEDS ORDERED: Etomidate 40mg/20ml Inj IV ONE (20:44)
[2019-02-23] MEDS: Dyna-Hex 2% Top Sol 2oz TOPIC SCH (21:00)
--- NOTE | 2019-02-23 21:00 | Consultation ---
DATE OF CONSULTATION: 02/23/2019 CONSULTING PHYSICIAN: Jakub García M.D. REFERRING PHYSICIAN: Dr Ashton REASON FOR CONSULTATION: 1. Acute kidney injury. 2. Volume depletion. 3. Hypernatremia. ALLERGIES: Sulfa. PAST MEDICAL HISTORY: 1. Hypertension. 2. Diabetes. 3. Dementia. PAST SURGICAL HISTORY: Noncontributory. FAMILY HISTORY: Positive for hypertension and diabetes. REVIEW OF SYSTEMS: Cannot obtain as the patient intubated, sedated on mechanical ventilation. LABORATORY DATA: Laboratories dated February 23, 2019, white cell count 19.1, hemoglobin 10.3, and platelet count 103. Sodium 169, potassium 3.2, BUN 121, creatinine 2.3. Lactic acid 2.3. PHYSICAL EXAMINATION: VITAL SIGNS: Blood pressure 98/54, respiratory rate 15, pulse 69, temperature 98.6, mechanically ventilated. HEENT: Extraocular muscles intact. No lymphadenopathy noted. CARDIOVASCULAR: S1, S2. No rubs or gallops. PULMONARY: Mild upper rhonchi with basilar rales. ABDOMEN: Obese, nondistended. EXTREMITIES: Trace edema bilaterally ASSESSMENT AND PLAN: 1. Acute kidney injury at this time most likely secondary to underlying sepsis and volume depletion along with ischemic ATN from hypotension. At this time, we will hydrate the patient carefully and try not to decrease serum sodium more than 10 mEqq over a 24-hour span. Continue D5W. 2. Volume depletion and hypernatremia. Continue free water and recheck BMP at 4 p.m. 3. Respiratory failure. The patient currently intubated, sedated, mechanical ventilation. 4. Sepsis. Dr Chavarria manage antibiotics. Possible underlying pneumonia. 5. DVT prophylaxis with SCDs and heparin. Jakub García MD DR: FLOR JOB#: [id number] CC: CHOCO
[2019-02-23] MEDS: Memantine 10mg tab ORAL SCH (21:01)
--- NOTE | 2019-02-23 21:45 | Consultation ---
DATE OF CONSULTATION: 02/23/2019 NEPHROLOGY CONSULTATION CONSULTING PHYSICIAN: Vipin Waterman M.D. REASON FOR CONSULTATION: Azotemia, hyperglycemia. HISTORY OF PRESENT ILLNESS: The patient is an 84-year-old lady resident of an [facility] presents with altered mental status, fever, and is intubated in the emergency room with abnormal imaging suggestive of pneumonia. She cannot provide any history. History is taken from chart review. There is a history of diabetes and advanced dementia. ALLERGIES: Listed as Sulfa. MEDICATIONS: On transfer from the [facility] include aspirin, atorvastatin, Carafate, DSS, cranberry, doxazosin, Exelon patch, DuoNeb inhalation, loratadine, Namenda, multivitamins, sliding scale insulin, polyethylene glycol, Tylenol, vitamin C. PAST HISTORY/ REVIEW OF SYSTEMS: No information from the family. Listed problems include allergic rhinitis, duodenal ulcer, diabetes, acute kidney failure, chronic obstructive pulmonary disease, gastrostomy status, hyperlipidemia, osteoarthritis. PHYSICAL EXAMINATION: GENERAL: The patient is seen in the intensive care unit, intubated and sedated, unresponsive. VITAL SIGNS: Temperature 98.6, pulse 69, respiratory rate 15, blood pressure 98/54. HEENT: Eyes are closed. When opened, sclerae nonicteric. Oral mucosa is dry. She is intubated. NECK: No adenopathy. LUNGS: Clear. HEART: Regular rhythm. I hear no murmur. ABDOMEN: Obese and soft. Gastrostomy tube is in place. No focal tenderness. EXTREMITIES: No edema. NEUROLOGIC: The patient is sedated, unresponsive. LABORATORY AND DIAGNOSTIC DATA: Pertinent laboratory, sodium 169, potassium 3.2, chloride 133, CO2 28, BUN 121, creatinine 2.3, glucose 426, phosphorus 1.8, calcium 7.9. CK 263. BNP 540. Albumin is 2.3. A pH 7.45, pCO2 32.6, pO2 ____ Urinalysis dipstick positive for protein and glucose, 5-10 white cells per high-power field. White count 19.1, hemoglobin 10.3. IMPRESSION: 1. Acute kidney injury likely dehydration. 2. Hyperglycemia. 3. Respiratory failure. 4. Hypernatremia. 5. OBESITY. 6. Gastrostomy feeding. 7. Hypophosphatemia. 8. Possible sepsis. 9. Pyuria possibly urinary tract infection. 10. Proteinuria. 11. Low albumin likely chronic malnutrition, possibly from proteinuria. PLAN: IV fluids has been adjusted. Serial electrolytes ordered. Monitor renal function closely. Her condition is complex and will require close monitoring of fluid, dialysis as discussed. Detailed orders for ICU review. Vipin Waterman M.D. DR: Viviana JOB#: [id number] CC:
[2019-02-23 22:20] LABS: ANION GAP 12 mmol/L (5-15); BLOOD UREA NITROGEN 103 mg/dL (7-18); CALCIUM 7.4 MG/DL (8.5-10.1); CARBON DIOXIDE 23 MMOL/L (21-32); CHLORIDE 130 MMOL/L (98-107); CREATININE 2.2 MG/DL (0.55-1.30); POTASSIUM 3.3 MMOL/L (3.5-5.1)
[2019-02-23 22:25] LABS: SODIUM 164 MMOL/L (136-145)
--- NOTE | 2019-02-23 22:30 | NUR ---
NURSE NOTES: Pt asleep, calm, VSS. Na 164, called to Dr Gannon. Ordered to decrease IV rate to 60ml/h. Lactic Acid trended down. GTF now up to 25ml/h. KPhos running at 46.667mls/h. H20 flushes via GT with 200mls given. Sputum for C&S sent.
[2019-02-24] VITALS (40 sets, daily range): BP systolic 89–140; BP diastolic 19–53
--- NOTE | 2019-02-24 | NUR ---
NURSE NOTES: Temp 97.9. Pt shivering. Additional blankets provided. GTF at 25ml/h. Accucheck 375. BP stable. No distress.
[2019-02-24] MEDS ORDERED: Calcium Gluconate 10% 2 GM in NS 110 ML IVPB ONE ×2 (00:30→01:30)
--- NOTE | 2019-02-24 02:00 | NUR ---
NURSE NOTES: Calm, quiet, asleep. Requires no sedation at this time. Fentanyl gtt on hold. VSS. New orders acknowledged.
[2019-02-24] MEDS: NovoLOG Insulin Flexpen SUBQ SCH ×8 (02:49→23:33)
[2019-02-24] MEDS: Albuterol/Ipratropium 3ml neb HHN SCH ×6 (03:11→22:55)
--- NOTE | 2019-02-24 04:00 | NUR ---
NURSE NOTES: Skin hot to touch. Temp 99.5 axillary, removed extra covers.Bed bath done. Redressed right IJ central line. GTF now at 35ml/h. No residuals. No BM. BP stable.
[2019-02-24] MEDS: Doxycycline Hyclate 100 MG in D5W 110 ML IV SCH ×2 (05:48→18:37)
[2019-02-24 07:08] LABS: HEMATOCRIT 31.4 % (37.0-47.0); HEMOGLOBIN 9.3 G/DL (12.0-16.0); MEAN CORPUSCULAR VOLUME 108 FL (80-99); PLATELET COUNT 87 K/UL (150-450); RED CELL DISTRIBUTION WIDTH 16.5 % (11.6-14.8); WHITE BLOOD COUNT 21.6 K/UL (4.8-10.8)
--- NOTE | 2019-02-24 07:11 | NUR ---
HAND-OFF: Report given to Ada Oro RN.
--- NOTE | 2019-02-24 07:40 | NUR ---
RESPIRATORY NOTE: Received pt on AC 12-400ml-30%FiO2- peep 5. Pt is orally intubated with ETT 7.0 @ 22cm lips line, secured by anchor fast. Bhanu rhonchi breath sounds heard upon auscultation, suctioned small amounts of thick/ thin wyatt yellow secretions without incidents. Duoneb TX given without adverse reactions. Pt fails weaning criteria when put on CPAP PS 10 per weaning protocol: RSBI 82, NIF -12, RR 35, pt is lethargic, responds to stimuli but unable to follow commands. RN Robert made aware. Alarms are set and audible, vent is plugged into the red outlet, ambu bag is at bedside. Vent circuits and suction tubing are secured and out of the way. Pt is stable, no SOB or resp distress at this time. Will continue to monitor pt.
[2019-02-24 07:44] LABS: ANION GAP 12 mmol/L (5-15); BLOOD UREA NITROGEN 90 mg/dL (7-18); CALCIUM 8.5 MG/DL (8.5-10.1); CARBON DIOXIDE 23 MMOL/L (21-32); CHLORIDE 129 MMOL/L (98-107); CREATININE 2.2 MG/DL (0.55-1.30); POTASSIUM 4.3 MMOL/L (3.5-5.1)
[2019-02-24 07:47] LABS: SODIUM 164 MMOL/L (136-145)
[2019-02-24 07:51] LABS: CREATINE KINASE 239 U/L (26-308); PHOSPHORUS 3.1 MG/DL (2.5-4.9)
--- NOTE | 2019-02-24 07:57 | Nephrology Progress Note ---
Assessment/Plan Assessment/Plan: A/P 1) Septic Shock- Elevated WBC. Abx mgmt per ID - start levophed 2) Resp FL- mgmt per Dr Ashton 3) Hypernatremia- improved 171---164 4) NAOMY- Cr and BUN improved 5) E- ABN- replace K+/Mg Phos as needed 6) DVT prophylaxis- with SCDs Subjective Date patient seen: Feb 24, 2019 Time patient seen: 07:53 ROS Limited/Unobtainable: Yes Allergies: Coded Allergies: SULFA (SULFONAMIDE ANTIBIOTICS) (Unverified Allergy, Unknown, 09/30/18) COPIED FROM UNCODED Uncoded Allergies: SULFA (Allergy, Unknown, 11/20/18) Subjective Patient remains intubated on ventilator Objective Last 24 Hour Vital Signs Date Time Temp Pulse Resp B/P (MAP) Pulse Ox O2 Delivery O2 Flow Rate FiO2 02/24/19 07:25 100 14 100 Mechanical Ventilator 30 02/24/19 07:25 100 24 30 02/24/19 07:06 100 27 97/43 (61) 100 02/24/19 06:00 96 30 99/41 (60) 100 02/24/19 05:24 91 26 30 02/24/19 05:00 97 28 110/47 (68) 99 02/24/19 04:00 92 02/24/19 04:00 30 02/24/19 04:00 99.5 92 28 120/35 (63) 100 02/24/19 04:00 Mechanical Ventilator 02/24/19 03:21 91 22 100 Mechanical Ventilator 30 02/24/19 03:13 30 02/24/19 03:12 94 25 100 Mechanical Ventilator 30 02/24/19 03:12 96 28 30 02/24/19 03:00 93 29 130/37 (68) 100 02/24/19 02:00 88 27 119/42 (67) 100 02/24/19 01:00 88 30 127/19 (55) 100 02/24/19 00:57 88 21 30 02/24/19 00:00 97.9 92 28 119/44 (69) 100 02/24/19 00:00 30 02/24/19 00:00 Mechanical Ventilator 02/24/19 00:00 92 02/23/19 23:26 89 22 100 Mechanical Ventilator 30 02/23/19 23:15 40 02/23/19 23:14 83 14 40 02/23/19 23:13 83 24 100 Mechanical Ventilator 40 02/23/19 23:00 83 23 108/24 (52) 100 02/23/19 22:00 80 24 114/44 (67) 100 02/23/19 21:30 73 18 40 02/23/19 21:00 86 23 101/31 (54) 100 02/23/19 20:00 Mechanical Ventilator 02/23/19 20:00 86 02/23/19 20:00 40 02/23/19 20:00 99.4 88 13 107/29 (55) 100 02/23/19 19:21 90 23 100 Mechanical Ventilator 40 02/23/19 19:18 40 02/23/19 19:13 92 23 40 02/23/19 19:12 87 23 100 Mechanical Ventilator 40 02/23/19 19:00 89 27 109/28 (55) 100 02/23/19 18:33 100.4 02/23/19 18:00 97 28 109/43 (65) 100 02/23/19 17:30 40 02/23/19 17:26 99 29 40 02/23/19 17:00 100 26 116/46 (69) 100 02/23/19 16:00 99 02/23/19 16:00 98 26 115/41 (65) 100 02/23/19 16:00 40 02/23/19 16:00 Mechanical Ventilator 02/23/19 15:29 101 16 100 Mechanical Ventilator 40 02/23/19 15:22 40 02/23/19 15:22 97 16 100 Mechanical Ventilator 40 02/23/19 15:04 96 30 40 02/23/19 15:00 100 24 110/30 (56) 100 02/23/19 14:00 93 21 95/45 (62) 100 02/23/19 13:00 90 21 84/44 (57) 100 02/23/19 12:53 91 20 40 02/23/19 12:00 Mechanical Ventilator 02/23/19 12:00 86 02/23/19 12:00 99.1 86 17 98/46 (63) 100 02/23/19 11:30 92 20 74/33 (47) 99 02/23/19 11:25 20 74/33 Mechanical Ventilator 50 02/23/19 11:24 95 24 40 02/23/19 11:00 98.6 69 15 98/54 100 Mechanical Ventilator 02/23/19 10:12 94 16 108/64 100 Mechanical Ventilator 02/23/19 10:12 16 108/64 Mechanical Ventilator 02/23/19 09:12 15 116/50 Mechanical Ventilator 02/23/19 09:12 95 15 116/50 100 Mechanical Ventilator 02/23/19 08:57 98 15 148/67 98 Mechanical Ventilator 02/23/19 08:57 19 148/67 Mechanical Ventilator 02/23/19 08:42 15.0 100 02/23/19 08:17 98 16 100 02/23/19 08:14 98 20 100 Non-Rebreather 15.0 100 02/23/19 08:00 100.8 107 19 108/61 93 Non-Rebreather 15.0 02/23/19 08:00 107 19 Non-Rebreather 15.0 Intake and Output 02/23/19 02/24/19 18:59 06:59 Intake Total 3327.677 ml 2560.002 ml Output Total 635 ml 590 ml Balance 2692.677 ml 1970.002 ml Intake Oral 0 ml Free Water 300 ml 600 ml IV Total 2912.677 ml 1630.002 ml Tube Feeding 45 ml 330 ml Other 70 ml Output Urine Total 635 ml 590 ml Laboratory Tests 02/23/19 08:05: White Blood Count 19.1H, Red Blood Count 3.23L, Hemoglobin 10.3L, Hematocrit 35.3L, Mean Corpuscular Volume 109H, Mean Corpuscular Hemoglobin 31.9H, Mean Corpuscular Hemoglobin Concent 29.1L, Red Cell Distribution Width 17.1H, Platelet Count 103L, Mean Platelet Volume 10.7H, Neutrophils (%) (Auto) , Lymphocytes (%) (Auto) , Monocytes (%) (Auto) , Eosinophils (%) (Auto) , Basophils (%) (Auto) , Differential Total Cells Counted 100, Neutrophils % ( Manual) 76H, Lymphocytes % (Manual) 15L, Monocytes % (Manual) 7, Eosinophils % ( Manual) 0, Basophils % (Manual) 1, Band Neutrophils 1, Nucleated Red Blood Cells 1, Platelet Estimate DecreasedL, Platelet Morphology Normal, Hypochromasia 1+, Anisocytosis 1+, Macrocytosis 1+, Sodium Level 169*H, Potassium Level 3.2L, Chloride Level 133H, Carbon Dioxide Level 28, Anion Gap 9 , Blood Urea Nitrogen 121H, Creatinine 2.3H, Estimat Glomerular Filtration Rate , Glucose Level 426H, Lactic Acid Level 2.40H, Calcium Level 7.9L, Phosphorus Level 1.8L, Magnesium Level 4.1H, Total Bilirubin 0.5, Aspartate Amino Transf ( AST/SGOT) 29, Alanine Aminotransferase (ALT/SGPT) 17, Alkaline Phosphatase 81, Total Creatine Kinase 263, Creatine Kinase MB 0.5, Creatine Kinase MB Relative Index 0.1, Troponin I 0.093H, Pro-B-Type Natriuretic Peptide 540H, Total Protein 6.3L, Albumin 2.3L, Globulin 4.0, Albumin/Globulin Ratio 0.6L, Triglycerides Level 645H, Lipase 328 02/23/19 09:23: Arterial Blood pH 7.458H, Arterial Blood Partial Pressure CO2 32.6L, Arterial Blood Partial Pressure O2 310.3H, Arterial Blood HCO3 22.6, Arterial Blood Oxygen Saturation 99.1, Arterial Blood Base Excess -0.8, Cam Test Positive 02/23/19 10:00: Urine Color Pale yellow, Urine Appearance Clear, Urine pH 8, Urine Specific [place] 1.015, Urine Protein 3+H, Urine Glucose (UA) 4+H, Urine Ketones Negative , Urine Blood 5+H, Urine Nitrite Negative, Urine Bilirubin Negative, Urine Urobilinogen Normal, Urine Leukocyte Esterase 1+H, Urine RBC 30-40H, Urine WBC 5 -10H, Urine Squamous Epithelial Cells Few, Urine Bacteria Few 02/23/19 10:20: Lactic Acid Level 2.30H 02/23/19 12:45: Glucose Level 432H, Hemoglobin A1c 8.3H 02/23/19 14:55: Arterial Blood pH 7.514H, Arterial Blood Partial Pressure CO2 26.6L, Arterial Blood Partial Pressure O2 72.1L, Arterial Blood HCO3 20.9L, Arterial Blood Oxygen Saturation 94.8L, Arterial Blood Base Excess -1.1, Cam Test Positive 02/23/19 16:20: Glucose Level 444H, White Blood Count 18.6H, Red Blood Count 2.89L, Hemoglobin 9.5L, Hematocrit 30.3L, Mean Corpuscular Volume 105H, Mean Corpuscular Hemoglobin 32.9H, Mean Corpuscular Hemoglobin Concent 31.4L, Red Cell Distribution Width 16.0H, Platelet Count 98L, Mean Platelet Volume 11.4H, Neutrophils (%) (Auto) , Lymphocytes (%) (Auto) , Monocytes (%) (Auto) , Eosinophils (%) (Auto) , Basophils (%) (Auto) , Differential Total Cells Counted 100, Neutrophils % (Manual) 80H, Lymphocytes % (Manual) 15L, Monocytes % (Manual) 5, Eosinophils % (Manual) 0, Basophils % (Manual) 0, Band Neutrophils 0, Platelet Estimate DecreasedL, Platelet Morphology Normal, Red Blood Cell Morphology Normal, Sodium Level 171*H, Potassium Level 3.6, Chloride Level 135H, Carbon Dioxide Level 27, Anion Gap 9, Blood Urea Nitrogen 113H, Creatinine 2.2H, Estimat Glomerular Filtration Rate , Calcium Level 7.7L 02/23/19 18:30: Lactic Acid Level 3.30H 02/23/19 20:00: Arterial Blood pH 7.530H, Arterial Blood Partial Pressure CO2 24.6*L, Arterial Blood Partial Pressure O2 180.2H, Arterial Blood HCO3 20.1L, Arterial Blood Oxygen Saturation 98.7, Arterial Blood Base Excess -1.6, Cam Test Positive 02/23/19 21:52: Sodium Level 164*H, Potassium Level 3.3L, Chloride Level 130H, Carbon Dioxide Level 23, Anion Gap 12, Blood Urea Nitrogen 103H, Creatinine 2.2H, Estimat Glomerular Filtration Rate , Glucose Level 377H, Lactic Acid Level 2.60H, Calcium Level 7.4L 02/24/19 05:12: Sodium Level 164*H, Potassium Level 4.3, Chloride Level 129H, Carbon Dioxide Level 23, Anion Gap 12, Blood Urea Nitrogen 90H, Creatinine 2.2H, Estimat Glomerular Filtration Rate , Glucose Level 251#H, Lactic Acid Level 2.60H, Calcium Level 8.5, White Blood Count 21.6H, Red Blood Count 2.90L, Hemoglobin 9.3L, Hematocrit 31.4L, Mean Corpuscular Volume 108H, Mean Corpuscular Hemoglobin 32.1H, Mean Corpuscular Hemoglobin Concent 29.7L, Red Cell Distribution Width 16.5H, Platelet Count 87L, Mean Platelet Volume 11.2H, Neutrophils (%) (Auto) , Lymphocytes (%) (Auto) , Monocytes (%) (Auto) , Eosinophils (%) (Auto) , Basophils (%) (Auto) , Neutrophils % (Manual) [Pending] , Lymphocytes % (Manual) [Pending], Platelet Estimate [Pending], Platelet Morphology [Pending], Phosphorus Level [Pending], Magnesium Level [Pending], Total Creatine Kinase [Pending], Random Vancomycin Level [Pending] Height (Feet): 5 Height (Inches): 8.00 Weight (Pounds): 179 General Appearance: other - intubated EENT: normal ENT inspection Neck: normal alignment, supple Cardiovascular: normal rate, regular rhythm Respiratory/Chest: rhonchi - bilaterally Abdomen: non tender, soft Edema: no edema noted Arm (L), no edema noted Arm (R), no edema noted Leg (L), no edema noted Leg (R), no edema noted Pedal (L), no edema noted Pedal (R), no edema noted Generalized Jakub García MD Feb 24, 2019 07:57
--- NOTE | 2019-02-24 08:05 | NUR ---
NURSE NOTES: reviewed patient medication with Dr. cowan at the bedside, will change medication for 0900 morning bp medication and asa. added Levophed to maintain map above 60. no further orders given at this timie.
[2019-02-24] MEDS ORDERED: Aspirin Baby 81mg NG SCH (09:00)
[2019-02-24] MEDS ORDERED: Doxazosin 1mg Tab ORAL SCH (09:00)
[2019-02-24] MEDS: Zosyn 3.375gm q12h **Extended infusion IVPB SCH ×2 (09:36)
--- NOTE | 2019-02-24 09:45 | NUR ---
NURSE NOTES: Levophed stated at 6mcg/min with BP of 81/31, started to maintain MAP above 60. patient remain son D5W at 75ml/hr for decrease sodium of 164. will continue plan of care.
[2019-02-24] MEDS ORDERED: Vancomycin 1.5gm Premix IVPB ONE (10:00)
--- NOTE | 2019-02-24 10:43 | NUR ---
RD ASSESSMENT & RECOMMENDATIONS SEE CARE ACTIVITY FOR COMPLETE ASSESSMENT DAILY ESTIMATED NEEDS: Needs based on Critical care, sepsis, DM, 67.5kg abw 22-28 kcals/kg 8452-7256 total kcals 1.2-2 g protein/kg 81-135 g total protein 20-25 mL/kg 1043-5811 total fluid mLs NUTRITION DIAGNOSIS: 1) Swallowing difficulty R/T dysphagia as evidenced by pt is GT dep, now s/p intubation. 2) Altered nutrition related lab values R/T sepsis, critical care, DM, as evidenced by critically elev Na (164-> wnl), elev BUN(90), elev creat (2.2), elev BGs (251-377), elev POC, Uglu 4+ on adm, elev wbc (21.6), febrile (Tmax 100.8) now on low dose pressors. ENTERAL NUTRITION RECOMMENDATIONS: Glucerna 1.2 @ 60ml/hr x24 hrs + Prosource x1 daily to provide 1440ml, 1728kcal, 86g + 11g prot, 1159ml free water - While on pressor support rec low infusion/ trophic feeds of Glucerna 1.2 (@5-10ml/hr) - W/ hemodynamic stability, rec to increase TF by 10ml/hr q 4-6 hrs to goal of 60ml/hr to meet est needs (add prosource x1 daily for an extra 11g pro /day) - Flush per MD/ HOB over 30 degrees ------- ADDITIONAL RECOMMENDATIONS: 1) Calibrated bedscale wt 2) Check lytes daily, replete as needed 3) F/ up w/ WC eval for coccyx wound 4) Monitor BGs closely -> rec LONG ACTING INSULIN 5) Consider lipid lowering agent (triglycerides >600) 6) Increase water flushes
[2019-02-24] MEDS: Pantoprazole Inj IVP SCH (10:54)
[2019-02-24] MEDS: Memantine 10mg tab ORAL SCH ×2 (10:54→20:40)
[2019-02-24] MEDS: Multivitamins W/Minerals 15 ML UDC GT SCH (10:54)
[2019-02-24] MEDS: Ascorbic Acid 500mg tab ORAL SCH (10:54)
[2019-02-24] MEDS: Bethanechol 10mg Tab ORAL SCH ×3 (10:54→18:36)
[2019-02-24] MEDS ORDERED: Etomidate 40mg/20ml Inj IV ONE (11:03)
[2019-02-24] MEDS ORDERED: Zemuron 50mg/5ml Inj IV ONE (11:03)
[2019-02-24] MEDS: Acetaminophen 650mg/20.3ml GT PRN ×2 (12:49→23:54)
--- NOTE | 2019-02-24 13:50 | NUR ---
NURSE NOTES: Dr. rodriges made aware of widening pulse pressure, as Levophed is increased, ordered to have patient have a 2d-echo procedure at bedside.
--- NOTE | 2019-02-24 13:54 | Pulmonolgy Critical Care Note ---
Critical Care - Asmt/Plan Assessment/Plan: Pulmonary CCM Progress Note HPI Patient is an 84-year-old female admitted with Pneumonia, Dehydration from OR, noted to have increased fever and altered mental status. Patient had been noted to be more obtunded. She had prior history of dementia. Patient was noted to have fever up to 100.6. Patient was brought to the hospital and was noted to be hypotensive by EMS and was started on IV fluids. She had prior history of G-tube dependence. History is limited by patient's mental status and confusion. Patient was noted to have blood sugar greater than 200 initially. Hypernatremia improving. On Insulin gtt, Ventilator AC settings adjusted Allergies: SULFA (SULFONAMIDE ANTIBIOTICS) ( PMH: CHF, Hypertension, Diabetes type 2, Dementia All Other Systems: limited - Physical Exam Vital Signs Noted General Appearance: severe distress, obese, Chronically Ill Eyes: bilateral eye PERRL ENT: dry mucus membranes, ETT Neck: supple, limited range of motion Respiratory: crackles, other - tachypnea, HS1, HS2 RRR Cardiovascular: no edema, bradycardia Gastrointestinal: non tender, soft, other - gtube site c/d/i Musculoskeletal: decreased range of motion, other - moves left upper extremity Neurologic: other - poor alertness, diminished gag reflex Skin: no rash Impression: Pneumonia Severe sepsis Respiratory failure Dehydration Hypernatremia Ethmoid sinusitis Diabetes type 2 Dementia Hypertension CHF previously Plan IV fluids. IV AB ISS Monitor labs ACV PPX Renal and ID following Labs noted Test 02/23/19 08:05 02/23/19 09:23 White Blood Count 19.1 K/UL (4.8-10.8) Red Blood Count 3.23 M/UL (4.20-5.40) Hemoglobin 10.3 G/DL (12.0-16.0) Hematocrit 35.3 % (37.0-47.0) Mean Corpuscular Volume 109 FL (80-99) Mean Corpuscular Hemoglobin 31.9 PG (27.0-31.0) Mean Corpuscular Hemoglobin Concent 29.1 G/DL (32.0-36.0) Red Cell Distribution Width 17.1 % (11.6-14.8) Platelet Count 103 K/UL (150-450) Mean Platelet Volume 10.7 FL (6.5-10.1) Neutrophils (%) (Auto) % (45.0-75.0) Lymphocytes (%) (Auto) % (20.0-45.0) Monocytes (%) (Auto) % (1.0-10.0) Eosinophils (%) (Auto) % (0.0-3.0) Basophils (%) (Auto) % (0.0-2.0) Differential Total Cells Counted 100 Neutrophils % (Manual) 76 % (45-75) Lymphocytes % (Manual) 15 % (20-45) Monocytes % (Manual) 7 % (1-10) Eosinophils % (Manual) 0 % (0-3) Basophils % (Manual) 1 % (0-2) Band Neutrophils 1 % (0-8) Nucleated Red Blood Cells 1 /100 WBC Platelet Estimate Decreased Platelet Morphology Normal Hypochromasia 1+ Anisocytosis 1+ Macrocytosis 1+ Sodium Level 169 MMOL/L (136-145) Potassium Level 3.2 MMOL/L (3.5-5.1) Chloride Level 133 MMOL/L (98-107) Carbon Dioxide Level 28 MMOL/L (21-32) Anion Gap 9 mmol/L (5-15) Blood Urea Nitrogen 121 mg/dL (7-18) Creatinine 2.3 MG/DL (0.55-1.30) Estimat Glomerular Filtration Rate mL/min (>60) Glucose Level 426 MG/DL (74-106) Lactic Acid Level 2.40 mmol/L (0.4-2.0) Calcium Level 7.9 MG/DL (8.5-10.1) Phosphorus Level 1.8 MG/DL (2.5-4.9) Magnesium Level 4.1 MG/DL (1.8-2.4) Total Bilirubin 0.5 MG/DL (0.2-1.0) Aspartate Amino Transf (AST/SGOT) 29 U/L (15-37) Alanine Aminotransferase (ALT/SGPT) 17 U/L (12-78) Alkaline Phosphatase 81 U/L (46-116) Total Creatine Kinase 263 U/L (26-308) Creatine Kinase MB 0.5 NG/ML (0.0-3.6) Creatine Kinase MB Relative Index 0.1 Troponin I 0.093 ng/mL (0.000-0.056) Pro-B-Type Natriuretic Peptide 540 pg/mL (0-125) Total Protein 6.3 G/DL (6.4-8.2) Albumin 2.3 G/DL (3.4-5.0) Globulin 4.0 g/dL Albumin/Globulin Ratio 0.6 (1.0-2.7) Triglycerides Level 645 MG/DL (30-150) Lipase 328 U/L (73-393) Arterial Blood pH 7.458 (7.350-7.450) Arterial Blood Partial Pressure CO2 32.6 mmHg (35.0-45.0) Arterial Blood Partial Pressure O2 310.3 mmHg (75.0-100.0) Arterial Blood HCO3 22.6 mmol/L (22.0-26.0) Arterial Blood Oxygen Saturation 99.1 % (95-100) Arterial Blood Base Excess -0.8 (-2-2) Cam Test Positive EKG: Rate: tachycardiac Rhythm: NSR ST Segments: no acute changes CXR: ETT in acceptable position, mild RUL interstitial prominence Critical Care - Objective Last 24 Hour Vital Signs Date Time Temp Pulse Resp B/P (MAP) Pulse Ox O2 Delivery O2 Flow Rate FiO2 02/24/19 13:49 101 02/24/19 13:19 97 33 30 02/24/19 12:30 101.7 101 33 135/38 (70) 100 02/24/19 12:00 100 32 121/32 (61) 100 02/24/19 12:00 30 02/24/19 11:30 98 32 111/35 (60) 100 02/24/19 11:20 95 31 30 02/24/19 11:20 95 31 100 Mechanical Ventilator 30 02/24/19 11:08 95 17 100 Mechanical Ventilator 30 02/24/19 11:00 97 22 97/34 (55) 100 02/24/19 10:30 100 30 89/39 (56) 100 02/24/19 10:15 101 30 100/42 (61) 100 02/24/19 10:00 100 29 107/39 (61) 100 02/24/19 09:45 99 29 97/35 (55) 100 02/24/19 09:33 81/31 02/24/19 09:30 98 29 100 02/24/19 09:00 101 31 95/44 (61) 100 02/24/19 08:30 104 31 30 02/24/19 08:00 30 02/24/19 08:00 Mechanical Ventilator 02/24/19 08:00 99.9 103 32 100/43 (62) 100 02/24/19 08:00 100 02/24/19 07:40 101 35 02/24/19 07:35 99 26 100 Mechanical Ventilator 30 02/24/19 07:25 100 14 100 Mechanical Ventilator 30 02/24/19 07:25 100 24 30 02/24/19 07:06 100 27 97/43 (61) 100 02/24/19 06:00 96 30 99/41 (60) 100 02/24/19 05:24 91 26 30 02/24/19 05:00 97 28 110/47 (68) 99 02/24/19 04:00 92 02/24/19 04:00 30 02/24/19 04:00 99.5 92 28 120/35 (63) 100 02/24/19 04:00 Mechanical Ventilator 02/24/19 03:21 91 22 100 Mechanical Ventilator 30 02/24/19 03:13 30 02/24/19 03:12 94 25 100 Mechanical Ventilator 30 02/24/19 03:12 96 28 30 02/24/19 03:00 93 29 130/37 (68) 100 02/24/19 02:00 88 27 119/42 (67) 100 02/24/19 01:00 88 30 127/19 (55) 100 02/24/19 00:57 88 21 30 02/24/19 00:00 97.9 92 28 119/44 (69) 100 02/24/19 00:00 30 02/24/19 00:00 Mechanical Ventilator 02/24/19 00:00 92 02/23/19 23:26 89 22 100 Mechanical Ventilator 30 02/23/19 23:15 40 02/23/19 23:14 83 14 40 02/23/19 23:13 83 24 100 Mechanical Ventilator 40 02/23/19 23:00 83 23 108/24 (52) 100 02/23/19 22:00 80 24 114/44 (67) 100 02/23/19 21:30 73 18 40 02/23/19 21:00 86 23 101/31 (54) 100 02/23/19 20:00 Mechanical Ventilator 02/23/19 20:00 86 02/23/19 20:00 40 02/23/19 20:00 99.4 88 13 107/29 (55) 100 02/23/19 19:21 90 23 100 Mechanical Ventilator 40 02/23/19 19:18 40 02/23/19 19:13 92 23 40 02/23/19 19:12 87 23 100 Mechanical Ventilator 40 02/23/19 19:00 89 27 109/28 (55) 100 02/23/19 18:33 100.4 02/23/19 18:00 97 28 109/43 (65) 100 02/23/19 17:30 40 02/23/19 17:26 99 29 40 02/23/19 17:00 100 26 116/46 (69) 100 02/23/19 16:00 99 02/23/19 16:00 98 26 115/41 (65) 100 02/23/19 16:00 40 02/23/19 16:00 Mechanical Ventilator 02/23/19 15:29 101 16 100 Mechanical Ventilator 40 02/23/19 15:22 40 02/23/19 15:22 97 16 100 Mechanical Ventilator 40 02/23/19 15:04 96 30 40 02/23/19 15:00 100 24 110/30 (56) 100 02/23/19 14:00 93 21 95/45 (62) 100 Accucheck: 318 Critical Care - Subjective ROS Limited/Unobtainable: No Condition: stable FI02: 30 Vent Support Breath Rate: 12 Vent Support Mode: AC Vent Tidal Volume: 400 Sputum Amount: Moderate PEEP: 5.0 PIP: 15 Tube Feeding Amount: 45 I&O: Intake and Output 02/23/19 02/24/19 19:00 07:00 Intake Total 3442.677 ml 2495.002 ml Output Total 685 ml 540 ml Balance 2757.677 ml 1955.002 ml Intake Oral 0 ml Free Water 300 ml 600 ml IV Total 3012.677 ml 1580.002 ml Tube Feeding 60 ml 315 ml Other 70 ml Output Urine Total 685 ml 540 ml ET-Tube: 7.0 ET Position: 22 Robert Cadena MD Feb 24, 2019 13:54
--- NOTE | 2019-02-24 14:00 | NUR ---
NURSE NOTES: 2 D-Echo completed at with result of 65%, tolerated procedure well with no distress noted, patient remains on Levophed at 15mcg/min,
--- NOTE | 2019-02-24 14:08 | Consultation ---
History of Present Illness General Date patient seen: Feb 24, 2019 Time patient seen: 13:54 Chief Complaint: Fever Present Illness HPI Patient was brought in to ER by ambulance from [facility] due to low blood pressure and fever. Patient is non verbal. Rectal temperture upon arrival 100.6F Patient was intubated in ER. Patient has HTN, DM, Dementia, obesity. History obtained from chart Allergies: Coded Allergies: SULFA (SULFONAMIDE ANTIBIOTICS) (Unverified Allergy, Unknown, 09/30/18) COPIED FROM UNCODED Uncoded Allergies: SULFA (Allergy, Unknown, 11/20/18) Medication History Scheduled Aspirin* (Aspir 81*), 81 MG GT DAILY, (Reported) Atorvastatin Calcium* (Atorvastatin Calcium*), 10 MG GT BEDTIME, (Reported) Bethanechol Chl (Bethanechol Chloride), 5 MG ORAL THREE TIMES A DAY, (Reported) Cranberry Extract (Cranberry), 425 MG GT DAILY, (Reported) Docusate Sodium (Docusate Sodium), 25 ML GT DAILY, (Reported) Doxazosin Mesylate* (Cardura*), 1 MG ORAL DAILY, (Reported) Ipratropium/Albuterol Sulfate (DuoNeb 0.5-3(2.5)mg/3ml), 3 ML HHN Q4HR, ( Reported) Loratadine (Claritin), 10 MG GT DAILY, (Reported) Memantine Hcl* (Namenda*), 10 MG GT TWICE A DAY, (Reported) Multivitamin Liquid* (Multi-Delyn*), 5 ML GT DAILY, (Reported) Nystatin (Nystatin), 1 EACH TOPIC TWICE A DAY, (Reported) Rivastigmine Tartrate (Exelon), 9.5 MG TD DAILY, (Reported) Sucralfate (Carafate), 1 GM ORAL FOUR TIMES A DAY, (Reported) Sucralfate* (Carafate*), 1 GM GT Q6HR, (Reported) Triamcinolone Acet (Triamcinolone Acetonide), 15 GM TOPIC TWICE A DAY, (Reported ) Vit C/Ascorbate Ca/Ascorb Sod (Vitamin C 500 Mg/15 Ml Liquid), 500 MG GT DAILY, (Reported) Scheduled PRN Acetaminophen (Tylenol), 325 MG GT Q4HR PRN for Fever/Headache/Mild Pain, ( Reported) Polyethylene Glycol 3350* (Miralax*), 17 GM GT DAILYPRN PRN for Constipation Miscellaneous Medications Insulin Aspart (Novolog Flexpen), SQ, (Reported) Ipratropium/Albuterol Sulfate (DuoNeb 0.5-3(2.5)mg/3ml), 3 ML HHN, (Reported) Patient History Healthcare decision maker Resuscitation status Full Code Advanced Directive on File Review of Systems Constitutional: Reports: no symptoms Eye: Reports: no symptoms ENT: Reports: no symptoms Respiratory: Reports: no symptoms Cardiovascular: Reports: no symptoms Gastrointestinal: Reports: no symptoms Genitourinary: Reports: no symptoms Musculoskeletal: Reports: no symptoms Skin: Reports: no symptoms Psychiatric: Reports: no symptoms Neurological: Reports: no symptoms Endocrine: Reports: no symptoms Hematologic/Lymphatic: Reports: no symptoms Physical Exam General Appearance: lethargic, moderate distress Lines, tubes and drains: peripheral, central line, gtube HEENT: normocephalic, atraumatic, anicteric, mucous membranes moist, PERRL, EOMI, pharynx normal, supple, no JVD Neck: non-tender, normal alignment, supple, normal inspection Respiratory/Chest: accessory muscle use, crackles/rales, rhonchi - bilaterally , rhonchi - left Cardiovascular/Chest: normal peripheral pulses, regular rhythm, tachycardia Abdomen: normal bowel sounds, non tender, soft, no organomegaly, no mass Extremities: normal range of motion, non-tender, normal inspection, no calf tenderness, normal capillary refill, non-pitting Skin Exam: normal pigmentation, warm/dry, cyanotic Neurologic: sensory deficit, unresponsiveness Last 24 Hour Vital Signs Date Time Temp Pulse Resp B/P (MAP) Pulse Ox O2 Delivery O2 Flow Rate FiO2 02/24/19 13:49 101 02/24/19 13:30 99 35 126/49 (74) 100 02/24/19 13:19 97 33 30 02/24/19 13:00 99 34 129/42 (71) 100 02/24/19 12:30 101.7 101 33 135/38 (70) 100 02/24/19 12:00 100 32 121/32 (61) 100 02/24/19 12:00 30 02/24/19 11:30 98 32 111/35 (60) 100 02/24/19 11:20 95 31 30 02/24/19 11:20 95 31 100 Mechanical Ventilator 30 02/24/19 11:08 95 17 100 Mechanical Ventilator 30 02/24/19 11:00 97 22 97/34 (55) 100 02/24/19 10:30 100 30 89/39 (56) 100 02/24/19 10:15 101 30 100/42 (61) 100 02/24/19 10:00 100 29 107/39 (61) 100 02/24/19 09:45 99 29 97/35 (55) 100 02/24/19 09:33 81/31 02/24/19 09:30 98 29 100 02/24/19 09:00 101 31 95/44 (61) 100 02/24/19 08:30 104 31 30 02/24/19 08:00 30 02/24/19 08:00 Mechanical Ventilator 02/24/19 08:00 99.9 103 32 100/43 (62) 100 02/24/19 08:00 100 02/24/19 07:40 101 35 02/24/19 07:35 99 26 100 Mechanical Ventilator 30 02/24/19 07:25 100 14 100 Mechanical Ventilator 30 02/24/19 07:25 100 24 30 02/24/19 07:06 100 27 97/43 (61) 100 02/24/19 06:00 96 30 99/41 (60) 100 02/24/19 05:24 91 26 30 02/24/19 05:00 97 28 110/47 (68) 99 02/24/19 04:00 92 02/24/19 04:00 30 02/24/19 04:00 99.5 92 28 120/35 (63) 100 02/24/19 04:00 Mechanical Ventilator 02/24/19 03:21 91 22 100 Mechanical Ventilator 30 02/24/19 03:13 30 02/24/19 03:12 94 25 100 Mechanical Ventilator 30 02/24/19 03:12 96 28 30 02/24/19 03:00 93 29 130/37 (68) 100 02/24/19 02:00 88 27 119/42 (67) 100 02/24/19 01:00 88 30 127/19 (55) 100 02/24/19 00:57 88 21 30 02/24/19 00:00 97.9 92 28 119/44 (69) 100 02/24/19 00:00 30 02/24/19 00:00 Mechanical Ventilator 02/24/19 00:00 92 02/23/19 23:26 89 22 100 Mechanical Ventilator 30 02/23/19 23:15 40 02/23/19 23:14 83 14 40 02/23/19 23:13 83 24 100 Mechanical Ventilator 40 02/23/19 23:00 83 23 108/24 (52) 100 02/23/19 22:00 80 24 114/44 (67) 100 02/23/19 21:30 73 18 40 02/23/19 21:00 86 23 101/31 (54) 100 02/23/19 20:00 Mechanical Ventilator 02/23/19 20:00 86 02/23/19 20:00 40 02/23/19 20:00 99.4 88 13 107/29 (55) 100 02/23/19 19:21 90 23 100 Mechanical Ventilator 40 02/23/19 19:18 40 02/23/19 19:13 92 23 40 02/23/19 19:12 87 23 100 Mechanical Ventilator 40 02/23/19 19:00 89 27 109/28 (55) 100 02/23/19 18:33 100.4 02/23/19 18:00 97 28 109/43 (65) 100 02/23/19 17:30 40 02/23/19 17:26 99 29 40 02/23/19 17:00 100 26 116/46 (69) 100 02/23/19 16:00 99 02/23/19 16:00 98 26 115/41 (65) 100 02/23/19 16:00 40 02/23/19 16:00 Mechanical Ventilator 02/23/19 15:29 101 16 100 Mechanical Ventilator 40 02/23/19 15:22 40 02/23/19 15:22 97 16 100 Mechanical Ventilator 40 02/23/19 15:04 96 30 40 02/23/19 15:00 100 24 110/30 (56) 100 02/23/19 14:00 93 21 95/45 (62) 100 Intake and Output 02/23/19 02/24/19 19:00 07:00 Intake Total 3442.677 ml 2495.002 ml Output Total 685 ml 540 ml Balance 2757.677 ml 1955.002 ml Intake Oral 0 ml Free Water 300 ml 600 ml IV Total 3012.677 ml 1580.002 ml Tube Feeding 60 ml 315 ml Other 70 ml Output Urine Total 685 ml 540 ml Laboratory Tests Test 02/23/19 14:55 02/23/19 16:20 02/23/19 18:30 02/23/19 20:00 Arterial Blood pH 7.514 (7.350-7.450) 7.530 (7.350-7.450) Arterial Blood Partial Pressure CO2 26.6 mmHg (35.0-45.0) L 24.6 mmHg (35.0-45.0) *L Arterial Blood Partial Pressure O2 72.1 mmHg (75.0-100.0) L 180.2 mmHg (75.0-100.0) H Arterial Blood HCO3 20.9 mmol/L (22.0-26.0) L 20.1 mmol/L (22.0-26.0) L Arterial Blood Oxygen Saturation 94.8 % (95-100) L 98.7 % (95-100) Arterial Blood Base Excess -1.1 (-2-2) -1.6 (-2-2) Cam Test Positive Positive White Blood Count 18.6 K/UL (4.8-10.8) H Red Blood Count 2.89 M/UL (4.20-5.40) L Hemoglobin 9.5 G/DL (12.0-16.0) L Hematocrit 30.3 % (37.0-47.0) L Mean Corpuscular Volume 105 FL (80-99) H Mean Corpuscular Hemoglobin 32.9 PG (27.0-31.0) H Mean Corpuscular Hemoglobin Concent 31.4 G/DL (32.0-36.0) L Red Cell Distribution Width 16.0 % (11.6-14.8) H Platelet Count 98 K/UL (150-450) L Mean Platelet Volume 11.4 FL (6.5-10.1) H Neutrophils (%) (Auto) % (45.0-75.0) Lymphocytes (%) (Auto) % (20.0-45.0) Monocytes (%) (Auto) % (1.0-10.0) Eosinophils (%) (Auto) % (0.0-3.0) Basophils (%) (Auto) % (0.0-2.0) Differential Total Cells Counted 100 Neutrophils % (Manual) 80 % (45-75) H Lymphocytes % (Manual) 15 % (20-45) L Monocytes % (Manual) 5 % (1-10) Eosinophils % (Manual) 0 % (0-3) Basophils % (Manual) 0 % (0-2) Band Neutrophils 0 % (0-8) Platelet Estimate Decreased L Platelet Morphology Normal Red Blood Cell Morphology Normal Sodium Level 171 MMOL/L (136-145) *H Potassium Level 3.6 MMOL/L (3.5-5.1) Chloride Level 135 MMOL/L (98-107) H Carbon Dioxide Level 27 MMOL/L (21-32) Anion Gap 9 mmol/L (5-15) Blood Urea Nitrogen 113 mg/dL (7-18) H Creatinine 2.2 MG/DL (0.55-1.30) H Estimat Glomerular Filtration Rate mL/min (>60) Glucose Level 444 MG/DL (74-106) H Calcium Level 7.7 MG/DL (8.5-10.1) L Lactic Acid Level 3.30 mmol/L (0.4-2.0) H Test 02/23/19 21:52 02/24/19 05:12 02/24/19 08:16 02/24/19 10:25 Sodium Level 164 MMOL/L (136-145) *H 164 MMOL/L (136-145) *H Potassium Level 3.3 MMOL/L (3.5-5.1) L 4.3 MMOL/L (3.5-5.1) Chloride Level 130 MMOL/L (98-107) H 129 MMOL/L (98-107) H Carbon Dioxide Level 23 MMOL/L (21-32) 23 MMOL/L (21-32) Anion Gap 12 mmol/L (5-15) 12 mmol/L (5-15) Blood Urea Nitrogen 103 mg/dL (7-18) H 90 mg/dL (7-18) H Creatinine 2.2 MG/DL (0.55-1.30) H 2.2 MG/DL (0.55-1.30) H Estimat Glomerular Filtration Rate mL/min (>60) mL/min (>60) Glucose Level 377 MG/DL (74-106) H 251 MG/DL (74-106) #H Lactic Acid Level 2.60 mmol/L (0.4-2.0) H 2.60 mmol/L (0.4-2.0) H 2.90 mmol/L (0.66-2.22) H Calcium Level 7.4 MG/DL (8.5-10.1) L 8.5 MG/DL (8.5-10.1) White Blood Count 21.6 K/UL (4.8-10.8) H Red Blood Count 2.90 M/UL (4.20-5.40) L Hemoglobin 9.3 G/DL (12.0-16.0) L Hematocrit 31.4 % (37.0-47.0) L Mean Corpuscular Volume 108 FL (80-99) H Mean Corpuscular Hemoglobin 32.1 PG (27.0-31.0) H Mean Corpuscular Hemoglobin Concent 29.7 G/DL (32.0-36.0) L Red Cell Distribution Width 16.5 % (11.6-14.8) H Platelet Count 87 K/UL (150-450) L Mean Platelet Volume 11.2 FL (6.5-10.1) H Neutrophils (%) (Auto) % (45.0-75.0) Lymphocytes (%) (Auto) % (20.0-45.0) Monocytes (%) (Auto) % (1.0-10.0) Eosinophils (%) (Auto) % (0.0-3.0) Basophils (%) (Auto) % (0.0-2.0) Differential Total Cells Counted 100 Neutrophils % (Manual) 84 % (45-75) H Lymphocytes % (Manual) 11 % (20-45) L Monocytes % (Manual) 5 % (1-10) Eosinophils % (Manual) 0 % (0-3) Basophils % (Manual) 0 % (0-2) Band Neutrophils 0 % (0-8) Platelet Estimate Decreased L Platelet Morphology Normal Anisocytosis 1+ Macrocytosis 1+ Phosphorus Level 3.1 MG/DL (2.5-4.9) Magnesium Level 3.8 MG/DL (1.8-2.4) H Total Creatine Kinase 239 U/L (26-308) Random Vancomycin Level 9.8 ug/mL Arterial Blood pH 7.453 (7.350-7.450) Arterial Blood Partial Pressure CO2 29.6 mmHg (35.0-45.0) L Arterial Blood Partial Pressure O2 87.9 mmHg (75.0-100.0) Arterial Blood HCO3 20.3 mmol/L (22.0-26.0) L Arterial Blood Oxygen Saturation 96.2 % (95-100) Arterial Blood Base Excess -3.0 (-2-2) L Cam Test Positive Height (Feet): 5 Height (Inches): 8.00 Weight (Pounds): 179 Medications Current Medications Medications (Trade) Dose Ordered Sig/Chandu Route PRN Reason Start Time Stop Time Status Last Admin Dose Admin Acetaminophen (Tylenol) 650 mg Q4H PRN GT Temp > 100.5 02/23/19 17:00 03/25/19 16:59 02/24/19 12:49 Albuterol/ Ipratropium (Albuterol/ Ipratropium) 3 ml Q4HRT HHN 02/23/19 15:00 02/28/19 14:59 02/24/19 11:08 Ascorbic Acid (Vitamin C) 500 mg DAILY ORAL 02/24/19 09:00 03/26/19 08:59 02/24/19 10:54 Atorvastatin Calcium (Lipitor) 10 mg BEDTIME ORAL 02/23/19 21:00 03/25/19 20:59 02/23/19 21:01 Bethanechol Chloride (Urecholine) 5 mg THREE TIMES A DAY ORAL 02/23/19 18:00 03/25/19 17:59 02/24/19 12:51 Chlorhexidine Gluconate (Sue-Hex 2%) 1 applic DAILY@2000 TOPIC 02/23/19 20:00 03/25/19 19:59 02/23/19 21:00 Dextrose 1,000 ml @ 75 mls/hr [id number] IV 02/24/19 08:00 03/26/19 07:59 02/24/19 08:48 Dextrose (Dextrose 50%) 25 ml Q30M PRN IV Hypoglycemia 02/23/19 11:45 03/25/19 11:44 Dextrose (Dextrose 50%) 50 ml Q30M PRN IV Hypoglycemia 02/23/19 11:45 03/25/19 11:44 Doxycycline Hyclate 100 mg/ Dextrose 110 ml @ 110 mls/hr Q12HR@0600,1800 IV 02/23/19 18:00 03/02/19 17:59 02/24/19 05:48 Fentanyl Citrate 1000 mcg/Sodium Chloride 100 ml @ 0 mls/hr Q24H IV 02/23/19 14:00 03/02/19 13:59 Insulin Aspart (NovoLOG) q3hr Q3HR SUBQ 02/23/19 15:30 03/25/19 15:29 02/24/19 12:29 Memantine (Namenda) 10 mg Q12HR ORAL 02/23/19 21:00 03/25/19 20:59 02/24/19 10:54 Multivitamins (Multivitamins W/ Minerals 15ml Liquid) 15 ml DAILY GT 02/24/19 09:00 03/26/19 08:59 02/24/19 10:54 Norepinephrine Bitartrate 4 mg/ Dextrose 250 ml @ 0 mls/hr Q24H IV 02/24/19 08:00 03/26/19 07:59 02/24/19 09:33 Pantoprazole (Protonix) 40 mg DAILY IVP 02/24/19 09:00 03/26/19 08:59 02/24/19 10:54 Piperacillin Sod/ Tazobactam Sod 3.375 gm/Sodium Chloride 110 ml @ 27.5 mls/hr EVERY 12 HOURS IVPB 02/23/19 14:00 02/28/19 13:59 02/24/19 09:36 Polyethylene Glycol (Miralax) 17 gm DAILYPRN PRN ORAL Constipation 02/23/19 12:15 03/25/19 12:14 Vancomycin HCl (Vanco rx to dose) 1 ea DAILY PRN MISC Per rx protocol 02/23/19 12:15 03/25/19 12:14 Assessment/Plan Status: stable Assessment/Plan: REASON FOR CONSULTATION: 1. Acute kidney injury. 2. Volume depletion. 3. Hypernatremia. 4. Hypertension. 5. Diabetes. 6. Dementia. 7. Hyperglycemia. 8. Respiratory failure. 9. OBESITY. 10. Gastrostomy feeding. 11 Hypophosphatemia. 12. Possible sepsis. 13. Pyuria possibly urinary tract infection. 14. Proteinuria. Low albumin likely chronic malnutrition Plan: Hypotension -levophed -IV fluids -Echocardiogram Respiratory failure -intubated -serial CXR and ABG/VBG -Breathing treatments, pulmonary toilet Sepsis -broad spectrum Abx NAOMY/hypernatremia -per nephrology Hypertension/hyperlipidemia -hold medication Diabetes/hyperglycemia -insulin gtt Robert Peterson MD Feb 24, 2019 14:08
[2019-02-24 14:42] LABS: ANION GAP 11 mmol/L (5-15); BLOOD UREA NITROGEN 73 mg/dL (7-18); CARBON DIOXIDE 22 MMOL/L (21-32); CHLORIDE 122 MMOL/L (98-107); CREATININE 2.2 MG/DL (0.55-1.30); POTASSIUM 3.1 MMOL/L (3.5-5.1); SODIUM 155 MMOL/L (136-145)
--- NOTE | 2019-02-24 14:45 | NUR ---
NURSE NOTES: Dr. Membreno updated on patient BMP from 1400, ordered to have D5W changed to NS at 75ml/hr.
--- NOTE | 2019-02-24 15:16 | NUR ---
CASE MANAGEMENT: REVIEW SI: RESP FAILURE . PNA . SEPSIS . DEHYDRATION T 101.3 HR 101 RR 30 BP 89/39 SAT 100% MECH VENT FIO2 30 WBC 21.6 H/H 9.3/31.4 NA 155 K 3.1 LACTIC ACID 3.30 IS: NS IVF @ 75ML/HR LEVOPHED GTT ZOSYN IV Q12HR DOXYCYCLINE IV Q12HR FENTANYL IV Q24HR ALBUTEROL HHN Q4HR NOVOLOG SUBQ Q3HR ICU STATUS DCP: PATIENT IS FROM [facility]
[2019-02-24] MEDS ORDERED: NS 275ml ONE (15:32)
[2019-02-24] MEDS ORDERED: Tubing IV Secondary IV ONE (15:32)
--- NOTE | 2019-02-24 15:40 | NUR ---
NURSE NOTES: Dr. Chavarria ordered to have Urine analysis and urine culture sent for analysis. will place additional orders after reviewing chart.
--- NOTE | 2019-02-24 16:15 | NUR ---
NURSE NOTES: patient assessed at the bedside by Dr. Cadena, no additional orders given at this time. Dr. Cadena updated on patient respiratory status with no additional orders at this time given,
[2019-02-24] MEDS ORDERED: Amikacin Rx to dose MISC PRN (16:45)
--- NOTE | 2019-02-24 16:45 | NUR ---
NURSE NOTES: New orders placed by infectious disease, will continue to monitor patient.
--- NOTE | 2019-02-24 16:47 | Consultation ---
History of Present Illness General Date patient seen: Feb 24, 2019 Chief Complaint: Fever Present Illness HPI 84 y/o F with hx of HTN, Dm2, CHF, COPD, dysphagia s/p GT, HLD, OA, advanced Dementia, non verbal, SNF resident presents to ED on 02/23 due to hypotension and fever. Patient was intubated in the ER Allergies: Coded Allergies: SULFA (SULFONAMIDE ANTIBIOTICS) (Unverified Allergy, Unknown, 09/30/18) COPIED FROM UNCODED Uncoded Allergies: SULFA (Allergy, Unknown, 11/20/18) Medication History Scheduled Aspirin* (Aspir 81*), 81 MG GT DAILY, (Reported) Atorvastatin Calcium* (Lipitor*), 10 MG GT BEDTIME, (Reported) Bethanechol Chl (Bethanechol Chloride), 5 MG GT THREE TIMES A DAY, (Reported) Cranberry Extract (Cranberry), 425 MG GT DAILY, (Reported) Docusate Sodium (Docusate Sodium), 25 ML GT DAILY, (Reported) Doxazosin Mesylate* (Cardura*), 1 MG GT BEDTIME, (Reported) Insulin Aspart (Novolog Flexpen), SQ Q6HR, (Reported) Loratadine (Claritin), 10 MG GT DAILY, (Reported) Memantine HCl (Memantine HCl), 5 ML GT BID, (Reported) Multivitamin with Minerals (Support), 5 ML GT DAILY, (Reported) Rivastigmine Tartrate (Exelon), 9.5 MG TD DAILY, (Reported) Sucralfate (Carafate), 10 ML GT FOUR TIMES A DAY, (Reported) Vit C/Ascorbate Ca/Ascorb Sod (Vitamin C 500 Mg/15 Ml Liquid), 500 MG GT DAILY, (Reported) Scheduled PRN Acetaminophen (Tylenol), 325 MG GT Q4HR PRN for Fever/Headache/Mild Pain, ( Reported) Acetaminophen* (Acetaminophen 325MG Tablet*), 650 MG GT Q4H PRN for Moderate Pain (Pain Scale 4-6), (Reported) Ipratropium/Albuterol Sulfate (DuoNeb 0.5-3(2.5)mg/3ml), 3 ML HHN Q6HR PRN for Shortness of Breath, (Reported) Polyethylene Glycol 3350* (Miralax*), 17 GM GT DAILYPRN PRN for Constipation Discontinued Medications Atorvastatin Calcium* (Atorvastatin Calcium*), 10 MG GT BEDTIME, (Reported) Discontinued Reason: Prescription changed Memantine Hcl* (Namenda*), 10 MG GT TWICE A DAY, (Reported) Discontinued Reason: Prescription changed Multivitamin Liquid* (Multi-Delyn*), 5 ML GT DAILY, (Reported) Discontinued Reason: Prescription changed Nystatin (Nystatin), 1 EACH TOPIC TWICE A DAY, (Reported) Discontinued Reason: Therapy completed Sucralfate* (Carafate*), 1 GM GT Q6HR, (Reported) Discontinued Reason: Medication dose changed Triamcinolone Acet (Triamcinolone Acetonide), 15 GM TOPIC TWICE A DAY, (Reported ) Discontinued Reason: Therapy completed Patient History Healthcare decision maker Resuscitation status Full Code Advanced Directive on File Patient History Narrative Pmhx: as above Shx: reviewed Fhx: non contributory Review of Systems All Other Systems: negative except mentioned in HPI Physical Exam Physical Exam Narrative General Appearance: lethargic, moderate distress Lines, tubes and drains: peripheral, central line, gtube HEENT: normocephalic, atraumatic, anicteric, mucous membranes moist, PERRL, EOMI, pharynx normal, supple, no JVD Neck: non-tender, normal alignment, supple, normal inspection Respiratory/Chest: accessory muscle use, crackles/rales, rhonchi - bilaterally , rhonchi - left Cardiovascular/Chest: normal peripheral pulses, regular rhythm, tachycardia Abdomen: normal bowel sounds, non tender, soft, no organomegaly, no mass Extremities: normal range of motion, non-tender, normal inspection, no calf tenderness, normal capillary refill, non-pitting Skin Exam: normal pigmentation, warm/dry, cyanotic Neurologic: sensory deficit, unresponsiveness Last 24 Hour Vital Signs Date Time Temp Pulse Resp B/P (MAP) Pulse Ox O2 Delivery O2 Flow Rate FiO2 02/24/19 16:00 99.7 96 32 124/50 (74) 100 02/24/19 16:00 30 02/24/19 15:30 100.4 94 31 115/33 (60) 100 02/24/19 15:24 99 30 30 02/24/19 15:24 99 30 100 Mechanical Ventilator 30 02/24/19 15:16 95 30 100 Mechanical Ventilator 30 02/24/19 15:14 115/46 02/24/19 15:00 96 32 115/46 (69) 100 02/24/19 14:30 95 33 123/42 (69) 100 02/24/19 14:05 101.3 02/24/19 14:00 101.3 99 35 104/39 (60) 100 02/24/19 13:49 101 02/24/19 13:30 99 35 126/49 (74) 100 02/24/19 13:19 97 33 30 02/24/19 13:00 99 34 129/42 (71) 100 02/24/19 12:30 101.7 101 33 135/38 (70) 100 02/24/19 12:00 100 32 121/32 (61) 100 02/24/19 12:00 30 02/24/19 12:00 Mechanical Ventilator 02/24/19 11:30 98 32 111/35 (60) 100 02/24/19 11:20 95 31 30 02/24/19 11:20 95 31 100 Mechanical Ventilator 30 02/24/19 11:08 95 17 100 Mechanical Ventilator 30 02/24/19 11:00 97 22 97/34 (55) 100 02/24/19 10:30 100 30 89/39 (56) 100 02/24/19 10:15 101 30 100/42 (61) 100 02/24/19 10:00 100 29 107/39 (61) 100 02/24/19 09:45 99 29 97/35 (55) 100 02/24/19 09:33 81/31 02/24/19 09:30 98 29 100 02/24/19 09:00 101 31 95/44 (61) 100 02/24/19 08:30 104 31 30 02/24/19 08:00 30 02/24/19 08:00 Mechanical Ventilator 02/24/19 08:00 99.9 103 32 100/43 (62) 100 02/24/19 08:00 100 02/24/19 07:40 101 35 02/24/19 07:35 99 26 100 Mechanical Ventilator 30 02/24/19 07:25 100 14 100 Mechanical Ventilator 30 02/24/19 07:25 100 24 30 02/24/19 07:06 100 27 97/43 (61) 100 02/24/19 06:00 96 30 99/41 (60) 100 02/24/19 05:24 91 26 30 02/24/19 05:00 97 28 110/47 (68) 99 02/24/19 04:00 92 02/24/19 04:00 30 02/24/19 04:00 99.5 92 28 120/35 (63) 100 02/24/19 04:00 Mechanical Ventilator 02/24/19 03:21 91 22 100 Mechanical Ventilator 30 02/24/19 03:13 30 02/24/19 03:12 94 25 100 Mechanical Ventilator 30 02/24/19 03:12 96 28 30 02/24/19 03:00 93 29 130/37 (68) 100 02/24/19 02:00 88 27 119/42 (67) 100 02/24/19 01:00 88 30 127/19 (55) 100 02/24/19 00:57 88 21 30 02/24/19 00:00 97.9 92 28 119/44 (69) 100 02/24/19 00:00 30 02/24/19 00:00 Mechanical Ventilator 02/24/19 00:00 92 02/23/19 23:26 89 22 100 Mechanical Ventilator 30 02/23/19 23:15 40 02/23/19 23:14 83 14 40 02/23/19 23:13 83 24 100 Mechanical Ventilator 40 02/23/19 23:00 83 23 108/24 (52) 100 02/23/19 22:00 80 24 114/44 (67) 100 02/23/19 21:30 73 18 40 02/23/19 21:00 86 23 101/31 (54) 100 02/23/19 20:00 Mechanical Ventilator 02/23/19 20:00 86 02/23/19 20:00 40 02/23/19 20:00 99.4 88 13 107/29 (55) 100 02/23/19 19:21 90 23 100 Mechanical Ventilator 40 02/23/19 19:18 40 02/23/19 19:13 92 23 40 02/23/19 19:12 87 23 100 Mechanical Ventilator 40 02/23/19 19:00 89 27 109/28 (55) 100 02/23/19 18:00 97 28 109/43 (65) 100 02/23/19 17:30 40 02/23/19 17:26 99 29 40 02/23/19 17:00 100 26 116/46 (69) 100 Intake and Output 02/23/19 02/24/19 19:00 07:00 Intake Total 3442.677 ml 2495.002 ml Output Total 685 ml 540 ml Balance 2757.677 ml 1955.002 ml Intake Oral 0 ml Free Water 300 ml 600 ml IV Total 3012.677 ml 1580.002 ml Tube Feeding 60 ml 315 ml Other 70 ml Output Urine Total 685 ml 540 ml Laboratory Tests Test 02/23/19 18:30 02/23/19 20:00 02/23/19 21:52 02/24/19 05:12 Lactic Acid Level 3.30 mmol/L (0.4-2.0) H 2.60 mmol/L (0.4-2.0) H 2.60 mmol/L (0.4-2.0) H Arterial Blood pH 7.530 (7.350-7.450) Arterial Blood Partial Pressure CO2 24.6 mmHg (35.0-45.0) *L Arterial Blood Partial Pressure O2 180.2 mmHg (75.0-100.0) H Arterial Blood HCO3 20.1 mmol/L (22.0-26.0) L Arterial Blood Oxygen Saturation 98.7 % (95-100) Arterial Blood Base Excess -1.6 (-2-2) Cam Test Positive Sodium Level 164 MMOL/L (136-145) *H 164 MMOL/L (136-145) *H Potassium Level 3.3 MMOL/L (3.5-5.1) L 4.3 MMOL/L (3.5-5.1) Chloride Level 130 MMOL/L (98-107) H 129 MMOL/L (98-107) H Carbon Dioxide Level 23 MMOL/L (21-32) 23 MMOL/L (21-32) Anion Gap 12 mmol/L (5-15) 12 mmol/L (5-15) Blood Urea Nitrogen 103 mg/dL (7-18) H 90 mg/dL (7-18) H Creatinine 2.2 MG/DL (0.55-1.30) H 2.2 MG/DL (0.55-1.30) H Estimat Glomerular Filtration Rate mL/min (>60) mL/min (>60) Glucose Level 377 MG/DL (74-106) H 251 MG/DL (74-106) #H Calcium Level 7.4 MG/DL (8.5-10.1) L 8.5 MG/DL (8.5-10.1) White Blood Count 21.6 K/UL (4.8-10.8) H Red Blood Count 2.90 M/UL (4.20-5.40) L Hemoglobin 9.3 G/DL (12.0-16.0) L Hematocrit 31.4 % (37.0-47.0) L Mean Corpuscular Volume 108 FL (80-99) H Mean Corpuscular Hemoglobin 32.1 PG (27.0-31.0) H Mean Corpuscular Hemoglobin Concent 29.7 G/DL (32.0-36.0) L Red Cell Distribution Width 16.5 % (11.6-14.8) H Platelet Count 87 K/UL (150-450) L Mean Platelet Volume 11.2 FL (6.5-10.1) H Neutrophils (%) (Auto) % (45.0-75.0) Lymphocytes (%) (Auto) % (20.0-45.0) Monocytes (%) (Auto) % (1.0-10.0) Eosinophils (%) (Auto) % (0.0-3.0) Basophils (%) (Auto) % (0.0-2.0) Differential Total Cells Counted 100 Neutrophils % (Manual) 84 % (45-75) H Lymphocytes % (Manual) 11 % (20-45) L Monocytes % (Manual) 5 % (1-10) Eosinophils % (Manual) 0 % (0-3) Basophils % (Manual) 0 % (0-2) Band Neutrophils 0 % (0-8) Platelet Estimate Decreased L Platelet Morphology Normal Anisocytosis 1+ Macrocytosis 1+ Phosphorus Level 3.1 MG/DL (2.5-4.9) Magnesium Level 3.8 MG/DL (1.8-2.4) H Total Creatine Kinase 239 U/L (26-308) Random Vancomycin Level 9.8 ug/mL Test 02/24/19 08:16 02/24/19 10:25 02/24/19 14:10 Arterial Blood pH 7.453 (7.350-7.450) Arterial Blood Partial Pressure CO2 29.6 mmHg (35.0-45.0) L Arterial Blood Partial Pressure O2 87.9 mmHg (75.0-100.0) Arterial Blood HCO3 20.3 mmol/L (22.0-26.0) L Arterial Blood Oxygen Saturation 96.2 % (95-100) Arterial Blood Base Excess -3.0 (-2-2) L Cam Test Positive Lactic Acid Level 2.90 mmol/L (0.66-2.22) H 3.30 mmol/L (0.4-2.0) H Sodium Level 155 MMOL/L (136-145) H Potassium Level 3.1 MMOL/L (3.5-5.1) L Chloride Level 122 MMOL/L (98-107) H Carbon Dioxide Level 22 MMOL/L (21-32) Anion Gap 11 mmol/L (5-15) Blood Urea Nitrogen 73 mg/dL (7-18) H Creatinine 2.2 MG/DL (0.55-1.30) H Estimat Glomerular Filtration Rate mL/min (>60) Glucose Level 417 MG/DL (74-106) #H Calcium Level 8.0 MG/DL (8.5-10.1) L Height (Feet): 5 Height (Inches): 8.00 Weight (Pounds): 179 Medications Current Medications Medications (Trade) Dose Ordered Sig/Chandu Route PRN Reason Start Time Stop Time Status Last Admin Dose Admin Acetaminophen (Tylenol) 650 mg Q4H PRN GT Temp > 100.5 02/23/19 17:00 03/25/19 16:59 02/24/19 12:49 Albuterol/ Ipratropium (Albuterol/ Ipratropium) 3 ml Q4HRT HHN 02/23/19 15:00 02/28/19 14:59 02/24/19 15:16 Ascorbic Acid (Vitamin C) 500 mg DAILY ORAL 02/24/19 09:00 03/26/19 08:59 02/24/19 10:54 Atorvastatin Calcium (Lipitor) 10 mg BEDTIME ORAL 02/23/19 21:00 03/25/19 20:59 02/23/19 21:01 Bethanechol Chloride (Urecholine) 5 mg THREE TIMES A DAY ORAL 02/23/19 18:00 03/25/19 17:59 02/24/19 12:51 Chlorhexidine Gluconate (Sue-Hex 2%) 1 applic DAILY@2000 TOPIC 02/23/19 20:00 03/25/19 19:59 02/23/19 21:00 Dextrose (Dextrose 50%) 25 ml Q30M PRN IV Hypoglycemia 02/23/19 11:45 03/25/19 11:44 Dextrose (Dextrose 50%) 50 ml Q30M PRN IV Hypoglycemia 02/23/19 11:45 03/25/19 11:44 Doxycycline Hyclate 100 mg/ Dextrose 110 ml @ 110 mls/hr Q12HR@0600,1800 IV 02/23/19 18:00 03/02/19 17:59 02/24/19 05:48 Fentanyl Citrate 1000 mcg/Sodium Chloride 100 ml @ 0 mls/hr Q24H IV 02/23/19 14:00 03/02/19 13:59 Insulin Aspart (NovoLOG) q3hr Q3HR SUBQ 02/23/19 15:30 03/25/19 15:29 02/24/19 15:13 Memantine (Namenda) 10 mg Q12HR ORAL 02/23/19 21:00 03/25/19 20:59 02/24/19 10:54 Multivitamins (Multivitamins W/ Minerals 15ml Liquid) 15 ml DAILY GT 02/24/19 09:00 03/26/19 08:59 02/24/19 10:54 Norepinephrine Bitartrate 4 mg/ Dextrose 250 ml @ 0 mls/hr Q24H IV 02/24/19 08:00 03/26/19 07:59 02/24/19 15:14 Pantoprazole (Protonix) 40 mg DAILY IVP 02/24/19 09:00 03/26/19 08:59 02/24/19 10:54 Piperacillin Sod/ Tazobactam Sod 3.375 gm/Sodium Chloride 110 ml @ 27.5 mls/hr EVERY 12 HOURS IVPB 02/23/19 14:00 02/28/19 13:59 02/24/19 09:36 Polyethylene Glycol (Miralax) 17 gm DAILYPRN PRN ORAL Constipation 02/23/19 12:15 03/25/19 12:14 Sodium Chloride 1,000 ml @ 75 mls/hr [id number] IV 02/24/19 15:00 03/26/19 14:59 02/24/19 15:11 Vancomycin HCl (Vanco rx to dose) 1 ea DAILY PRN MISC Per rx protocol 02/23/19 12:15 03/25/19 12:14 Assessment/Plan Assessment/Plan: Abx: IV Vancomycin 02/23- Zosyn 02/23- Doxycycline 02/23- Cefepime x1 02/23 Flagylx 1 02/23 Assessment: Septic Shock- likely 2ry to PNA- r/o UTI, r/o bacteremia -CXR:Endotracheal tube 2.8 cm above the ludwig in good position. Mild cardiomegaly. Mild right upper lobe interstitial prominence. -CT head: No acute intracranial process. Involutional changes with small vessel disease. Moderate ethmoid sinus mucosal thickening and fluid. Small fluid level in the right sphenoid sinus. -u/a wbc 5-10, nit neg, leuk +1; ucx p -Bcx p -sp cx p Acute respiratory failure s/p intubation 02/23 Fever Leukocytosis Lactic acidosis NAOMY on CKD Hypernatremia hx of MRSA bacteremia 11/2018 -TTE no vegetation hx of ESBL E.coli UTI 11/2018 HTN Dm2 CHF COPD dysphagia s/p GT HLD OA advanced Dementia non verbal SNF resident Plan: -Continue empiric IV Vancomycin and Doxycycline #2 -Switch empiric Zosyn #2 to Meropenem (given hx of ESBL) and add Amikacin pending cultures -f/u cx -Monitor CBC/BMP, temperatures -legionella ag urine Thank you for this consultation. Will continue to follow along with you. Discussed with DAKOTA. Frances Chavarria M.D. Feb 24, 2019 16:47
--- NOTE | 2019-02-24 17:27 | NUR ---
NURSE NOTES: Temperature decreased to 99.5F axillary, patient remains breathing at 30-33. remains on tube feeding at 45ml/hr, remains on Levophed at 15mcg/min with systolic of 68.
[2019-02-24] MEDS ORDERED: SUPPORT118 ML GT (18:02)
[2019-02-24] MEDS ORDERED: ATORVASTATIN CA10 MG GT (18:02)
[2019-02-24] MEDS ORDERED: MEMANTINE GT (18:02)
[2019-02-24] MEDS ORDERED: ACETAMINOPHEN325 M1 GT (18:06)
[2019-02-24 18:08] LABS: APPEARANCE,URINE SLIGHTLY CLOUDY; BILIRUBIN, URINE NEGATIVE (NEGATIVE); COLOR,URINE PALE YELLOW; GLUCOSE, URINE (UA) 4+ (NEGATIVE); KETONES,URINE NEGATIVE (NEGATIVE); LEUKOCYTE ESTERASE ,URINE 2+ (NEGATIVE); NITRITE,URINE NEGATIVE (NEGATIVE); PH,URINE 6 (4.5-8.0); PROTEIN,URINE 3+ (NEGATIVE); UROBILINOGEN,URINE NORMAL MG/DL (0.0-1.0)
[2019-02-24] MEDS: Meropenem 1 GM in NS 55 ML IVPB SCH (18:37)
--- NOTE | 2019-02-24 19:11 | NUR ---
RESPIRATORY NOTE: Received pt on AC 12, 400VT, 30%, PEEP +5. Pt intubated w/ ETT 7.0 @ 22cm lipline, secured by anchorfast. Pt asleep/flat effect. B/S jeniffer. clear-diminished, sxn small amounts of thick, wyatt-yellow secretions. No wrist restraints as pt unable to move hands. Vent plugged into red outlet, ambubag at bedside. Pt in no apparent distress at this time. Will continue to monitor pt.
[2019-02-24] MEDS: Dyna-Hex 2% Top Sol 2oz TOPIC SCH (19:47)
--- NOTE | 2019-02-24 19:55 | NUR ---
NURSE NOTES: PATIENT NO RESPONSE TO VERBAL AND TACTILE TO STIMULI, ON ETT TO VENT, AC 12/TV 400/FIO2 30%/PEEP 5, O2 SATURATION 100% NOTED, ABDOMEN ROUND AND SOFT, G TUBE INTACT AND PATENT, ONGOING GLUCERNA 1.2 AT 45ML/HR AT THIS TIME, NO RESIDUE NOTED, KEPT HOB OVER 30 DEGREES, F/C INTACT AND PATENT, YELLOW URINE OUTED GRAVITY, PERIPHERAL LINE TO LEFT HAND AND TLC TO RIGHT IJ INTACT AND PATENT, ONGOING LEVOPHED DRIP 15 MCG/MIN AND NS AT 75ML/HR VIA TLC, MADE LOWER BED POSITION, ON BED ALARM, PROVIDED CALL LIGHT WITHIN REACH, WILL CONTINUE TO MONITOR.
[2019-02-24] MEDS ORDERED: Amikacin 1,000 MG in NS 110 ML IV ONE (20:00)
--- NOTE | 2019-02-24 20:10 | NUR ---
NURSE NOTES: TEMP 100.3F NOTED, APPLIED COOLING MEASURE, WILL CONTINUE TO MONITOR.
--- NOTE | 2019-02-24 22:05 | NUR ---
NURSE NOTES: ORAL CARE WAS DONE, CONTINUED COOLING MEASURE DUE TO TEMP 100F NOTED, WILL CONTINUE PLAN OF CARE.
[2019-02-24] MEDS: Norepinephrine Bitartrate 8 MG in D5W 500ml 492 ML IV SCH (23:35)
--- NOTE | 2019-02-24 23:54 | NUR ---
NURSE NOTES: GIVEN TYLENOL 650MG VIA G TUBE PRN ORDER FOR FEVER 100.9F, WILL CONTINUE TO MONITOR.
[2019-02-25] VITALS (49 sets, daily range): BP systolic 83–137; BP diastolic 32–78
[2019-02-25] MEDS: NovoLOG Insulin Flexpen SUBQ SCH ×8 (02:36→23:48)
--- NOTE | 2019-02-25 02:49 | NUR ---
NURSE NOTES: MORNING CARE WAS DONE, NO BOWEL MOVEMENT STATUS.
[2019-02-25] MEDS: Albuterol/Ipratropium 3ml neb HHN SCH ×6 (03:11→22:39)
--- NOTE | 2019-02-25 05:20 | NUR ---
NURSE NOTES: PATIENT RESPONSE TO NAME, OPEN EYES, ABLE TO FOLLOW COMMANDS, WILL CONTINUE TO MONITOR.
[2019-02-25 05:21] LABS: HEMATOCRIT 32.3 % (37.0-47.0); HEMOGLOBIN 9.8 G/DL (12.0-16.0); MEAN CORPUSCULAR VOLUME 107 FL (80-99); PLATELET COUNT 93 K/UL (150-450); RED BLOOD COUNT 3.04 M/UL (4.20-5.40); RED CELL DISTRIBUTION WIDTH 16.3 % (11.6-14.8)
[2019-02-25 05:31] LABS: ANION GAP 10 mmol/L (5-15); BLOOD UREA NITROGEN 56 mg/dL (7-18); CALCIUM 7.8 MG/DL (8.5-10.1); CARBON DIOXIDE 22 MMOL/L (21-32); CHLORIDE 125 MMOL/L (98-107); POTASSIUM 3.1 MMOL/L (3.5-5.1); SODIUM 157 MMOL/L (136-145)
[2019-02-25 05:33] LABS: WHITE BLOOD COUNT 24.2 K/UL (4.8-10.8)
[2019-02-25] MEDS: Doxycycline Hyclate 100 MG in D5W 110 ML IV SCH ×2 (05:36→17:13)
[2019-02-25] MEDS: Meropenem 1 GM in NS 55 ML IVPB SCH ×2 (05:36→17:13)
--- NOTE | 2019-02-25 06:21 | NUR ---
NURSE NOTES: CALLED DR. BROCK REGARDING POTASSIUM LEVE 3.1 AND CRITICAL WBC 24.2 THAT LEFT MESSAGE.
--- NOTE | 2019-02-25 06:40 | NUR ---
NURSE NOTES: DR. BROCK MADE NEW ORDER, WILL FOLLOW UP ORDERS.
--- NOTE | 2019-02-25 07:00 | NUR ---
RESPIRATORY NOTES: Received patient on ACVC RR 12, VT 400, FIO2 30%, PEEP +5. Intubated with 7.0 ETT at 22cm at the lip, secured with anchorfast. Bilateral breath sounds reveal rhonchi. Suctioned moderate amount of thick wyatt yellow secretions through the ETT and thin clear secretions orally. Patient is currently obtundent. Alarms are on and audible. Vent plugged into red outlet. Will continue to monitor throughout the day.
--- NOTE | 2019-02-25 07:10 | NUR ---
NURSE NOTES: Received pt from DAKOTA Brian. patient opens eyes upon touch and light shaking but very lethargic. FLACC 0/10 pain scale. Orally intubated ETT 7.0/22cm at lip line, AC 12/TV400/FIo2 30%/+5. Thick wyatt secretions noted upon endotracheal sxn. Rhonchi heard bilateral breath sounds. Hot to touch. Ax temp 101.9. Cooling measures applied and will admin tylenol. D5W running@75cc/hr and Levophed running @ 15mcg/kg/hr via RIJ triple lumen catheter. LH 20G patent and asymptomatic. Sinus rhythm to sinus tachy on supervisor microfilm duplicating unit. FC draining well to gravity. Bed locked, alarmed and in lowest position. Will continue plan of care.
--- NOTE | 2019-02-25 07:15 | NUR ---
HAND-OFF: Report given to hAmet HOLT RN.
[2019-02-25] MEDS: Acetaminophen 650mg/20.3ml GT PRN ×2 (07:54→17:13)
[2019-02-25] MEDS: Norepinephrine Bitartrate 8 MG in D5W 500ml 492 ML IV SCH ×2 (08:03→16:54)
--- NOTE | 2019-02-25 08:30 | Critical Care Progress Note ---
Assessment/Plan Assessment/Plan Impression: Pneumonia Severe sepsis Respiratory failure Dehydration Hypernatremia Ethmoid sinusitis Diabetes Acute renal failure leukocytosis protein calorie malnutrition Plan care noted IV antibiotics respiratory care Ventilatory meds supportive care suction oxygen therapy prognosis guarded medications/laboratory data/nursing notes/ICU care reviewed in detail note reviewed and edited care discussed with RN and RT ICU time spent 40 minutes Critical Care - Subjective ROS Limited/Unobtainable: Yes Condition: critical EKG Rhythm: Sinus Rhythm I&O: Intake and Output 02/24/19 02/25/19 19:00 07:00 Intake Total 2717.75 ml 2815.00 ml Output Total 1210 ml 2220 ml Balance 1507.75 ml 595.00 ml Free Water 480 ml 350 ml IV Total 1667.75 ml 1775.00 ml Tube Feeding 540 ml 610 ml Other 30 ml 80 ml Output Urine Total 1210 ml 2220 ml Critical Care - Objective ET-Tube: 7.0 ET Position: 22 Last 24 Hour Vital Signs Date Time Temp Pulse Resp B/P (MAP) Pulse Ox O2 Delivery O2 Flow Rate FiO2 02/25/19 08:03 113/42 02/25/19 07:07 98 28 100 Mechanical Ventilator 30 02/25/19 07:05 97 31 30 02/25/19 07:00 119/35 02/25/19 07:00 93 16 119/35 (63) 100 02/25/19 07:00 98 30 100 Mechanical Ventilator 30 02/25/19 06:30 98 31 114/41 (65) 99 02/25/19 06:00 117/41 02/25/19 06:00 94 31 117/41 (66) 99 02/25/19 05:30 94 29 121/53 (75) 100 02/25/19 05:08 92 27 30 02/25/19 05:00 119/62 02/25/19 05:00 91 24 119/62 (81) 100 02/25/19 04:30 94 24 108/44 (65) 100 02/25/19 04:00 30 02/25/19 04:00 111/50 02/25/19 04:00 98.8 90 29 111/50 (70) 100 02/25/19 04:00 Mechanical Ventilator 02/25/19 03:30 89 24 106/50 (68) 100 02/25/19 03:22 89 02/25/19 03:21 98 29 99 Mechanical Ventilator 30 02/25/19 03:11 96 27 100 Mechanical Ventilator 30 02/25/19 03:10 96 27 30 02/25/19 03:00 115/48 02/25/19 03:00 89 22 115/48 (70) 100 02/25/19 02:30 89 26 105/42 (63) 100 02/25/19 02:00 110/47 02/25/19 02:00 97 30 110/47 (68) 100 02/25/19 01:30 92 32 116/44 (68) 100 02/25/19 01:00 115/43 02/25/19 01:00 98 32 115/43 (67) 100 02/25/19 01:00 98 33 30 02/25/19 00:30 100 34 114/47 (69) 100 02/25/19 00:24 100.3 02/25/19 00:00 30 02/25/19 00:00 Mechanical Ventilator 02/25/19 00:00 107/44 02/25/19 00:00 100.9 101 32 107/44 (65) 100 02/24/19 23:35 114/48 02/24/19 23:32 103 02/24/19 23:30 104 32 114/48 (70) 100 02/24/19 23:05 103 30 100 Mechanical Ventilator 30 02/24/19 23:00 104 21 106/49 (68) 100 02/24/19 23:00 106/49 02/24/19 22:55 104 33 30 02/24/19 22:55 104 33 100 Mechanical Ventilator 30 02/24/19 22:30 101 33 114/49 (70) 100 02/24/19 22:00 116/51 02/24/19 22:00 103 33 116/51 (72) 100 02/24/19 21:30 104 25 113/46 (68) 100 02/24/19 21:16 101 33 30 02/24/19 21:00 104 27 118/47 (70) 100 02/24/19 21:00 118/47 02/24/19 20:30 97 32 140/48 (78) 100 02/24/19 20:00 Mechanical Ventilator 02/24/19 20:00 30 02/24/19 20:00 100.3 98 33 104/37 (59) 100 02/24/19 20:00 104/37 02/24/19 19:47 135/44 02/24/19 19:30 99 33 135/44 (74) 100 02/24/19 19:22 96 02/24/19 19:18 97 31 100 Mechanical Ventilator 30 02/24/19 19:08 96 31 100 Mechanical Ventilator 30 02/24/19 19:08 96 31 30 02/24/19 19:00 96 32 129/53 (78) 100 02/24/19 19:00 129/53 02/24/19 18:30 97 32 126/42 (70) 100 02/24/19 18:00 97 31 126/47 (73) 100 02/24/19 18:00 127/49 02/24/19 17:30 97 32 130/41 (70) 100 02/24/19 17:00 97 32 116/48 (70) 100 02/24/19 17:00 116/48 02/24/19 16:54 100 31 30 02/24/19 16:30 97 31 127/42 (70) 100 02/24/19 16:00 99.7 96 32 124/50 (74) 100 02/24/19 16:00 30 02/24/19 16:00 96 02/24/19 16:00 124/50 02/24/19 16:00 Mechanical Ventilator 02/24/19 15:30 100.4 94 31 115/33 (60) 100 02/24/19 15:24 99 30 30 02/24/19 15:24 99 30 100 Mechanical Ventilator 30 02/24/19 15:16 95 30 100 Mechanical Ventilator 30 02/24/19 15:14 115/46 02/24/19 15:00 115/62 02/24/19 15:00 96 32 115/46 (69) 100 02/24/19 14:30 95 33 123/42 (69) 100 02/24/19 14:00 101.3 99 35 104/39 (60) 100 02/24/19 14:00 104/39 02/24/19 13:49 101 02/24/19 13:30 99 35 126/49 (74) 100 02/24/19 13:19 97 33 30 02/24/19 13:00 99 34 129/42 (71) 100 02/24/19 13:00 129/42 02/24/19 12:30 101.7 101 33 135/38 (70) 100 02/24/19 12:00 126/32 02/24/19 12:00 100 32 121/32 (61) 100 02/24/19 12:00 30 02/24/19 12:00 Mechanical Ventilator 02/24/19 11:30 98 32 111/35 (60) 100 02/24/19 11:20 95 31 30 02/24/19 11:20 95 31 100 Mechanical Ventilator 30 02/24/19 11:08 95 17 100 Mechanical Ventilator 30 02/24/19 11:00 97 22 97/34 (55) 100 02/24/19 11:00 97/34 02/24/19 10:30 100 30 89/39 (56) 100 02/24/19 10:15 101 30 100/42 (61) 100 02/24/19 10:00 107/39 02/24/19 10:00 100 29 107/39 (61) 100 02/24/19 09:45 99 29 97/35 (55) 100 02/24/19 09:33 81/31 02/24/19 09:30 98 29 100 02/24/19 09:00 101 31 95/44 (61) 100 02/24/19 08:30 104 31 30 Labs: Labs Test 02/23/19 08:05 02/23/19 09:23 02/23/19 10:00 02/23/19 10:20 White Blood Count 19.1 K/UL (4.8-10.8) Red Blood Count 3.23 M/UL (4.20-5.40) Hemoglobin 10.3 G/DL (12.0-16.0) Hematocrit 35.3 % (37.0-47.0) Mean Corpuscular Volume 109 FL (80-99) Mean Corpuscular Hemoglobin 31.9 PG (27.0-31.0) Mean Corpuscular Hemoglobin Concent 29.1 G/DL (32.0-36.0) Red Cell Distribution Width 17.1 % (11.6-14.8) Platelet Count 103 K/UL (150-450) Mean Platelet Volume 10.7 FL (6.5-10.1) Neutrophils (%) (Auto) % (45.0-75.0) Lymphocytes (%) (Auto) % (20.0-45.0) Monocytes (%) (Auto) % (1.0-10.0) Eosinophils (%) (Auto) % (0.0-3.0) Basophils (%) (Auto) % (0.0-2.0) Differential Total Cells Counted 100 Neutrophils % (Manual) 76 % (45-75) Lymphocytes % (Manual) 15 % (20-45) Monocytes % (Manual) 7 % (1-10) Eosinophils % (Manual) 0 % (0-3) Basophils % (Manual) 1 % (0-2) Band Neutrophils 1 % (0-8) Nucleated Red Blood Cells 1 /100 WBC Platelet Estimate Decreased Platelet Morphology Normal Hypochromasia 1+ Anisocytosis 1+ Macrocytosis 1+ Sodium Level 169 MMOL/L (136-145) Potassium Level 3.2 MMOL/L (3.5-5.1) Chloride Level 133 MMOL/L (98-107) Carbon Dioxide Level 28 MMOL/L (21-32) Anion Gap 9 mmol/L (5-15) Blood Urea Nitrogen 121 mg/dL (7-18) Creatinine 2.3 MG/DL (0.55-1.30) Estimat Glomerular Filtration Rate mL/min (>60) Glucose Level 426 MG/DL (74-106) Lactic Acid Level 2.40 mmol/L (0.4-2.0) 2.30 mmol/L (0.66-2.22) Calcium Level 7.9 MG/DL (8.5-10.1) Phosphorus Level 1.8 MG/DL (2.5-4.9) Magnesium Level 4.1 MG/DL (1.8-2.4) Total Bilirubin 0.5 MG/DL (0.2-1.0) Aspartate Amino Transf (AST/SGOT) 29 U/L (15-37) Alanine Aminotransferase (ALT/SGPT) 17 U/L (12-78) Alkaline Phosphatase 81 U/L (46-116) Total Creatine Kinase 263 U/L (26-308) Creatine Kinase MB 0.5 NG/ML (0.0-3.6) Creatine Kinase MB Relative Index 0.1 Troponin I 0.093 ng/mL (0.000-0.056) Pro-B-Type Natriuretic Peptide 540 pg/mL (0-125) Total Protein 6.3 G/DL (6.4-8.2) Albumin 2.3 G/DL (3.4-5.0) Globulin 4.0 g/dL Albumin/Globulin Ratio 0.6 (1.0-2.7) Triglycerides Level 645 MG/DL (30-150) Lipase 328 U/L (73-393) Arterial Blood pH 7.458 (7.350-7.450) Arterial Blood Partial Pressure CO2 32.6 mmHg (35.0-45.0) Arterial Blood Partial Pressure O2 310.3 mmHg (75.0-100.0) Arterial Blood HCO3 22.6 mmol/L (22.0-26.0) Arterial Blood Oxygen Saturation 99.1 % (95-100) Arterial Blood Base Excess -0.8 (-2-2) Cam Test Positive Urine Color Pale yellow Urine Appearance Clear Urine pH 8 (4.5-8.0) Urine Specific Henning 1.015 (1.005-1.035) Urine Protein 3+ (NEGATIVE) Urine Glucose (UA) 4+ (NEGATIVE) Urine Ketones Negative (NEGATIVE) Urine Blood 5+ (NEGATIVE) Urine Nitrite Negative (NEGATIVE) Urine Bilirubin Negative (NEGATIVE) Urine Urobilinogen Normal MG/DL (0.0-1.0) Urine Leukocyte Esterase 1+ (NEGATIVE) Urine RBC 30-40 /HPF (0 - 2) Urine WBC 5-10 /HPF (0 - 2) Urine Squamous Epithelial Cells Few /LPF (NONE/OCC) Urine Bacteria Few /HPF (NONE) Test 02/23/19 12:45 02/23/19 14:55 02/23/19 16:20 02/23/19 18:30 Glucose Level 432 MG/DL (74-106) 444 MG/DL (74-106) Hemoglobin A1c 8.3 % (4.3-6.0) Arterial Blood pH 7.514 (7.350-7.450) Arterial Blood Partial Pressure CO2 26.6 mmHg (35.0-45.0) Arterial Blood Partial Pressure O2 72.1 mmHg (75.0-100.0) Arterial Blood HCO3 20.9 mmol/L (22.0-26.0) Arterial Blood Oxygen Saturation 94.8 % (95-100) Arterial Blood Base Excess -1.1 (-2-2) Cam Test Positive White Blood Count 18.6 K/UL (4.8-10.8) Red Blood Count 2.89 M/UL (4.20-5.40) Hemoglobin 9.5 G/DL (12.0-16.0) Hematocrit 30.3 % (37.0-47.0) Mean Corpuscular Volume 105 FL (80-99) Mean Corpuscular Hemoglobin 32.9 PG (27.0-31.0) Mean Corpuscular Hemoglobin Concent 31.4 G/DL (32.0-36.0) Red Cell Distribution Width 16.0 % (11.6-14.8) Platelet Count 98 K/UL (150-450) Mean Platelet Volume 11.4 FL (6.5-10.1) Neutrophils (%) (Auto) % (45.0-75.0) Lymphocytes (%) (Auto) % (20.0-45.0) Monocytes (%) (Auto) % (1.0-10.0) Eosinophils (%) (Auto) % (0.0-3.0) Basophils (%) (Auto) % (0.0-2.0) Differential Total Cells Counted 100 Neutrophils % (Manual) 80 % (45-75) Lymphocytes % (Manual) 15 % (20-45) Monocytes % (Manual) 5 % (1-10) Eosinophils % (Manual) 0 % (0-3) Basophils % (Manual) 0 % (0-2) Band Neutrophils 0 % (0-8) Platelet Estimate Decreased Platelet Morphology Normal Red Blood Cell Morphology Normal Sodium Level 171 MMOL/L (136-145) Potassium Level 3.6 MMOL/L (3.5-5.1) Chloride Level 135 MMOL/L (98-107) Carbon Dioxide Level 27 MMOL/L (21-32) Anion Gap 9 mmol/L (5-15) Blood Urea Nitrogen 113 mg/dL (7-18) Creatinine 2.2 MG/DL (0.55-1.30) Estimat Glomerular Filtration Rate mL/min (>60) Calcium Level 7.7 MG/DL (8.5-10.1) Lactic Acid Level 3.30 mmol/L (0.4-2.0) Test 02/23/19 20:00 02/23/19 21:52 02/24/19 05:12 02/24/19 08:16 Arterial Blood pH 7.530 (7.350-7.450) 7.453 (7.350-7.450) Arterial Blood Partial Pressure CO2 24.6 mmHg (35.0-45.0) 29.6 mmHg (35.0-45.0) Arterial Blood Partial Pressure O2 180.2 mmHg (75.0-100.0) 87.9 mmHg (75.0-100.0) Arterial Blood HCO3 20.1 mmol/L (22.0-26.0) 20.3 mmol/L (22.0-26.0) Arterial Blood Oxygen Saturation 98.7 % (95-100) 96.2 % (95-100) Arterial Blood Base Excess -1.6 (-2-2) -3.0 (-2-2) Cam Test Positive Positive Sodium Level 164 MMOL/L (136-145) 164 MMOL/L (136-145) Potassium Level 3.3 MMOL/L (3.5-5.1) 4.3 MMOL/L (3.5-5.1) Chloride Level 130 MMOL/L (98-107) 129 MMOL/L (98-107) Carbon Dioxide Level 23 MMOL/L (21-32) 23 MMOL/L (21-32) Anion Gap 12 mmol/L (5-15) 12 mmol/L (5-15) Blood Urea Nitrogen 103 mg/dL (7-18) 90 mg/dL (7-18) Creatinine 2.2 MG/DL (0.55-1.30) 2.2 MG/DL (0.55-1.30) Estimat Glomerular Filtration Rate mL/min (>60) mL/min (>60) Glucose Level 377 MG/DL (74-106) 251 MG/DL (74-106) Lactic Acid Level 2.60 mmol/L (0.4-2.0) 2.60 mmol/L (0.4-2.0) Calcium Level 7.4 MG/DL (8.5-10.1) 8.5 MG/DL (8.5-10.1) White Blood Count 21.6 K/UL (4.8-10.8) Red Blood Count 2.90 M/UL (4.20-5.40) Hemoglobin 9.3 G/DL (12.0-16.0) Hematocrit 31.4 % (37.0-47.0) Mean Corpuscular Volume 108 FL (80-99) Mean Corpuscular Hemoglobin 32.1 PG (27.0-31.0) Mean Corpuscular Hemoglobin Concent 29.7 G/DL (32.0-36.0) Red Cell Distribution Width 16.5 % (11.6-14.8) Platelet Count 87 K/UL (150-450) Mean Platelet Volume 11.2 FL (6.5-10.1) Neutrophils (%) (Auto) % (45.0-75.0) Lymphocytes (%) (Auto) % (20.0-45.0) Monocytes (%) (Auto) % (1.0-10.0) Eosinophils (%) (Auto) % (0.0-3.0) Basophils (%) (Auto) % (0.0-2.0) Differential Total Cells Counted 100 Neutrophils % (Manual) 84 % (45-75) Lymphocytes % (Manual) 11 % (20-45) Monocytes % (Manual) 5 % (1-10) Eosinophils % (Manual) 0 % (0-3) Basophils % (Manual) 0 % (0-2) Band Neutrophils 0 % (0-8) Platelet Estimate Decreased Platelet Morphology Normal Anisocytosis 1+ Macrocytosis 1+ Phosphorus Level 3.1 MG/DL (2.5-4.9) Magnesium Level 3.8 MG/DL (1.8-2.4) Total Creatine Kinase 239 U/L (26-308) Random Vancomycin Level 9.8 ug/mL Test 02/24/19 10:25 02/24/19 14:10 02/24/19 16:00 02/24/19 16:20 Lactic Acid Level 2.90 mmol/L (0.66-2.22) 3.30 mmol/L (0.4-2.0) 2.70 mmol/L (0.66-2.22) Sodium Level 155 MMOL/L (136-145) Potassium Level 3.1 MMOL/L (3.5-5.1) Chloride Level 122 MMOL/L (98-107) Carbon Dioxide Level 22 MMOL/L (21-32) Anion Gap 11 mmol/L (5-15) Blood Urea Nitrogen 73 mg/dL (7-18) Creatinine 2.2 MG/DL (0.55-1.30) Estimat Glomerular Filtration Rate mL/min (>60) Glucose Level 417 MG/DL (74-106) Calcium Level 8.0 MG/DL (8.5-10.1) Urine Color Pale yellow Urine Appearance Slightly cloudy Urine pH 6 (4.5-8.0) Urine Specific Henning 1.010 (1.005-1.035) Urine Protein 3+ (NEGATIVE) Urine Glucose (UA) 4+ (NEGATIVE) Urine Ketones Negative (NEGATIVE) Urine Blood 4+ (NEGATIVE) Urine Nitrite Negative (NEGATIVE) Urine Bilirubin Negative (NEGATIVE) Urine Urobilinogen Normal MG/DL (0.0-1.0) Urine Leukocyte Esterase 2+ (NEGATIVE) Urine RBC 15-20 /HPF (0 - 2) Urine WBC 10-15 /HPF (0 - 2) Urine Squamous Epithelial Cells Few /LPF (NONE/OCC) Urine Bacteria Moderate /HPF (NONE) Test 02/24/19 21:45 02/24/19 23:45 02/25/19 04:20 02/25/19 06:15 Lactic Acid Level 2.40 mmol/L (0.4-2.0) 2.30 mmol/L (0.66-2.22) 2.40 mmol/L (0.4-2.0) 3.00 mmol/L (0.66-2.22) White Blood Count 24.2 K/UL (4.8-10.8) Red Blood Count 3.04 M/UL (4.20-5.40) Hemoglobin 9.8 G/DL (12.0-16.0) Hematocrit 32.3 % (37.0-47.0) Mean Corpuscular Volume 107 FL (80-99) Mean Corpuscular Hemoglobin 32.3 PG (27.0-31.0) Mean Corpuscular Hemoglobin Concent 30.3 G/DL (32.0-36.0) Red Cell Distribution Width 16.3 % (11.6-14.8) Platelet Count 93 K/UL (150-450) Mean Platelet Volume 11.5 FL (6.5-10.1) Neutrophils (%) (Auto) % (45.0-75.0) Lymphocytes (%) (Auto) % (20.0-45.0) Monocytes (%) (Auto) % (1.0-10.0) Eosinophils (%) (Auto) % (0.0-3.0) Basophils (%) (Auto) % (0.0-2.0) Differential Total Cells Counted 100 Neutrophils % (Manual) 81 % (45-75) Lymphocytes % (Manual) 16 % (20-45) Monocytes % (Manual) 3 % (1-10) Eosinophils % (Manual) 0 % (0-3) Basophils % (Manual) 0 % (0-2) Band Neutrophils 0 % (0-8) Platelet Estimate Decreased Platelet Morphology Normal Anisocytosis 1+ Macrocytosis 1+ Sodium Level 157 MMOL/L (136-145) Potassium Level 3.1 MMOL/L (3.5-5.1) Chloride Level 125 MMOL/L (98-107) Carbon Dioxide Level 22 MMOL/L (21-32) Anion Gap 10 mmol/L (5-15) Blood Urea Nitrogen 56 mg/dL (7-18) Creatinine 2.0 MG/DL (0.55-1.30) Estimat Glomerular Filtration Rate mL/min (>60) Glucose Level 258 MG/DL (74-106) Calcium Level 7.8 MG/DL (8.5-10.1) Test 02/25/19 08:00 Objective: WDWN on vent ETT in place clear breath sounds bilaterally without rhonchi or wheeze [id number] without MRG NABS nontender no HSM no CCE sedated Micro: Microbiology Date/Time Source Procedure Growth Status 02/23/19 08:05 Blood Blood Culture - Preliminary NO GROWTH AFTER 24 HOURS Resulted 02/23/19 08:00 Blood Blood Culture - Preliminary NO GROWTH AFTER 24 HOURS Resulted 02/24/19 07:40 Sputum Induced Gram Stain Pending Resulted 02/24/19 07:40 Sputum Culture - Preliminary Gram Negative Bacillus 1 Resulted Accucheck: 243 Agustin Nelson MD Feb 25, 2019 08:30
[2019-02-25] MEDS: Pantoprazole Inj IVP SCH (08:44)
[2019-02-25] MEDS: Bethanechol 10mg Tab ORAL SCH ×3 (08:44→17:13)
[2019-02-25] MEDS: Multivitamins W/Minerals 15 ML UDC GT SCH (08:44)
[2019-02-25] MEDS: Ascorbic Acid 500mg tab ORAL SCH (08:44)
[2019-02-25] MEDS: Memantine 10mg tab ORAL SCH ×2 (08:44→20:13)
--- NOTE | 2019-02-25 09:03 | NUR ---
NURSE NOTES: Patient GTF residual >160ml, held feeding. Will notify Dr. Rutledge. Blood sugar 326 mg/dl, 10 units insulin given per sliding scale. Patient had ax temp 101.3, Tylenol given and cooling measures applied. Notified Dr. García regarding WBC trending up=24.2, NA 157, LA 3.0. No new orders given. Continue Levo @15mcg/kg/hr
--- NOTE | 2019-02-25 09:30 | NUR ---
RESPIRATORY NOTE: Started weaning at 0930. Patient passed weaning criteria. Placed on PS +8 PEEP +5 30% FIO2. Will continue to closely monitor.
[2019-02-25] MEDS ORDERED: NS 275ml ONE (11:05)
--- NOTE | 2019-02-25 11:33 | NUR ---
*-* INSURANCE *--* ALL CLINICALS AND REVIEWS HAVE BEEN FAXED TO: BRENNA: KIANA [phone] FAX: [phone] (FAX CLINICALS)
--- NOTE | 2019-02-25 12:03 | NUR ---
NURSE NOTES: Rectal temp 99.6. Blood sugar 326 mg/dl, 10 units of insulin given per sliding scale. Turned and and repositioned.
--- NOTE | 2019-02-25 12:03 | Nephrology Progress Note ---
Assessment/Plan Status: stable Assessment/Plan: A/P 1) Septic Shock- Elevated WBC. - Abx mgmt per ID - started levophed 2) Resp FL- mgmt per Dr Ashton 3) Hypernatremia- improved 171---164---157 - D5W. Recheck BMP 4) NAOMY- Cr and BUN much improved 5) E- ABN- replace K+/Mg Phos as needed 6) DVT prophylaxis- with SCDs Cslt GI. Patient not tolerating TFs Subjective Date patient seen: Feb 25, 2019 Time patient seen: 12:00 ROS Limited/Unobtainable: No Allergies: Coded Allergies: SULFA (SULFONAMIDE ANTIBIOTICS) (Unverified Allergy, Unknown, 09/30/18) COPIED FROM UNCODED Uncoded Allergies: SULFA (Allergy, Unknown, 11/20/18) Subjective Patient remains intubated on ventilator with IV pressor support Objective Last 24 Hour Vital Signs Date Time Temp Pulse Resp B/P (MAP) Pulse Ox O2 Delivery O2 Flow Rate FiO2 02/25/19 11:00 108/44 02/25/19 10:50 96 29 30 30 02/25/19 10:50 Mechanical Ventilator 30 02/25/19 10:50 Mechanical Ventilator 30 02/25/19 10:30 93 25 95/78 (84) 100 02/25/19 10:00 113/48 02/25/19 10:00 92 27 113/48 (69) 100 02/25/19 09:32 100 02/25/19 09:30 93 30 104/43 (63) 100 02/25/19 09:20 95 32 30 30 02/25/19 09:15 93 25 118/39 (65) 100 02/25/19 09:00 95 25 83/35 (51) 100 02/25/19 09:00 83/35 02/25/19 08:30 93 30 99/50 (66) 100 02/25/19 08:24 100.3 02/25/19 08:03 113/42 02/25/19 08:00 Mechanical Ventilator 02/25/19 08:00 101 35 116/48 (70) 100 02/25/19 08:00 116/48 02/25/19 08:00 30 02/25/19 08:00 101 02/25/19 07:30 101.9 101 35 111/44 (66) 100 8/5/19 07:07 98 28 100 Mechanical Ventilator 30 02/25/19 07:05 97 31 30 02/25/19 07:00 119/35 02/25/19 07:00 93 16 119/35 (63) 100 02/25/19 07:00 98 30 100 Mechanical Ventilator 30 02/25/19 06:30 98 31 114/41 (65) 99 02/25/19 06:00 117/41 02/25/19 06:00 94 31 117/41 (66) 99 02/25/19 05:30 94 29 121/53 (75) 100 02/25/19 05:08 92 27 30 02/25/19 05:00 119/62 02/25/19 05:00 91 24 119/62 (81) 100 02/25/19 04:30 94 24 108/44 (65) 100 02/25/19 04:00 30 02/25/19 04:00 111/50 02/25/19 04:00 98.8 90 29 111/50 (70) 100 02/25/19 04:00 Mechanical Ventilator 02/25/19 03:30 89 24 106/50 (68) 100 02/25/19 03:22 89 02/25/19 03:21 98 29 99 Mechanical Ventilator 30 02/25/19 03:11 96 27 100 Mechanical Ventilator 30 02/25/19 03:10 96 27 30 02/25/19 03:00 115/48 02/25/19 03:00 89 22 115/48 (70) 100 02/25/19 02:30 89 26 105/42 (63) 100 02/25/19 02:00 110/47 02/25/19 02:00 97 30 110/47 (68) 100 02/25/19 01:30 92 32 116/44 (68) 100 02/25/19 01:00 115/43 02/25/19 01:00 98 32 115/43 (67) 100 02/25/19 01:00 98 33 30 02/25/19 00:30 100 34 114/47 (69) 100 02/25/19 00:00 30 02/25/19 00:00 Mechanical Ventilator 02/25/19 00:00 107/44 02/25/19 00:00 100.9 101 32 107/44 (65) 100 02/24/19 23:35 114/48 02/24/19 23:32 103 02/24/19 23:30 104 32 114/48 (70) 100 02/24/19 23:05 103 30 100 Mechanical Ventilator 30 02/24/19 23:00 104 21 106/49 (68) 100 02/24/19 23:00 106/49 02/24/19 22:55 104 33 30 02/24/19 22:55 104 33 100 Mechanical Ventilator 30 02/24/19 22:30 101 33 114/49 (70) 100 02/24/19 22:00 116/51 02/24/19 22:00 103 33 116/51 (72) 100 02/24/19 21:30 104 25 113/46 (68) 100 02/24/19 21:16 101 33 30 02/24/19 21:00 104 27 118/47 (70) 100 02/24/19 21:00 118/47 02/24/19 20:30 97 32 140/48 (78) 100 02/24/19 20:00 Mechanical Ventilator 02/24/19 20:00 30 02/24/19 20:00 100.3 98 33 104/37 (59) 100 02/24/19 20:00 104/37 02/24/19 19:47 135/44 02/24/19 19:30 99 33 135/44 (74) 100 02/24/19 19:22 96 02/24/19 19:18 97 31 100 Mechanical Ventilator 30 02/24/19 19:08 96 31 100 Mechanical Ventilator 30 02/24/19 19:08 96 31 30 02/24/19 19:00 96 32 129/53 (78) 100 02/24/19 19:00 129/53 02/24/19 18:30 97 32 126/42 (70) 100 02/24/19 18:00 97 31 126/47 (73) 100 02/24/19 18:00 127/49 02/24/19 17:30 97 32 130/41 (70) 100 02/24/19 17:00 97 32 116/48 (70) 100 02/24/19 17:00 116/48 02/24/19 16:54 100 31 30 02/24/19 16:30 97 31 127/42 (70) 100 02/24/19 16:00 99.7 96 32 124/50 (74) 100 02/24/19 16:00 30 02/24/19 16:00 96 02/24/19 16:00 124/50 02/24/19 16:00 Mechanical Ventilator 02/24/19 15:30 100.4 94 31 115/33 (60) 100 02/24/19 15:24 99 30 30 02/24/19 15:24 99 30 100 Mechanical Ventilator 30 02/24/19 15:16 95 30 100 Mechanical Ventilator 30 02/24/19 15:14 115/46 02/24/19 15:00 115/62 02/24/19 15:00 96 32 115/46 (69) 100 02/24/19 14:30 95 33 123/42 (69) 100 02/24/19 14:00 101.3 99 35 104/39 (60) 100 02/24/19 14:00 104/39 02/24/19 13:49 101 02/24/19 13:30 99 35 126/49 (74) 100 02/24/19 13:19 97 33 30 02/24/19 13:00 99 34 129/42 (71) 100 02/24/19 13:00 129/42 02/24/19 12:30 101.7 101 33 135/38 (70) 100 Intake and Output 02/24/19 02/25/19 18:59 06:59 Intake Total 2581.50 ml 2867.00 ml Output Total 1210 ml 1970 ml Balance 1371.50 ml 897.00 ml Free Water 480 ml 350 ml IV Total 1531.50 ml 1882.00 ml Tube Feeding 540 ml 555 ml Other 30 ml 80 ml Output Urine Total 1210 ml 1970 ml Laboratory Tests 02/24/19 14:10: Sodium Level 155H, Potassium Level 3.1L, Chloride Level 122H, Carbon Dioxide Level 22, Anion Gap 11, Blood Urea Nitrogen 73H, Creatinine 2.2H, Estimat Glomerular Filtration Rate , Glucose Level 417#H, Lactic Acid Level 3.30H, Calcium Level 8.0L 02/24/19 16:00: Urine Color Pale yellow, Urine Appearance Slightly cloudy, Urine pH 6, Urine Specific [place] 1.010, Urine Protein 3+H, Urine Glucose (UA) 4+H, Urine Ketones Negative, Urine Blood 4+H, Urine Nitrite Negative, Urine Bilirubin Negative, Urine Urobilinogen Normal, Urine Leukocyte Esterase 2+H, Urine RBC 15- 20H, Urine WBC 10-15H, Urine Squamous Epithelial Cells Few, Urine Bacteria ModerateH, Urine Legionella Antigen [Pending] 02/24/19 16:20: Lactic Acid Level 2.70H 02/24/19 21:45: Lactic Acid Level 2.40H 02/24/19 23:45: Lactic Acid Level 2.30H 02/25/19 04:20: Lactic Acid Level 2.40H, White Blood Count 24.2*H, Red Blood Count 3.04L, Hemoglobin 9.8L, Hematocrit 32.3L, Mean Corpuscular Volume 107H, Mean Corpuscular Hemoglobin 32.3H, Mean Corpuscular Hemoglobin Concent 30.3L, Red Cell Distribution Width 16.3H, Platelet Count 93L, Mean Platelet Volume 11.5H, Neutrophils (%) (Auto) , Lymphocytes (%) (Auto) , Monocytes (%) (Auto) , Eosinophils (%) (Auto) , Basophils (%) (Auto) , Differential Total Cells Counted 100, Neutrophils % (Manual) 81H, Lymphocytes % (Manual) 16L, Monocytes % (Manual) 3, Eosinophils % (Manual) 0, Basophils % (Manual) 0, Band Neutrophils 0, Platelet Estimate DecreasedL, Platelet Morphology Normal, Anisocytosis 1+, Macrocytosis 1+, Sodium Level 157H, Potassium Level 3.1L, Chloride Level 125H, Carbon Dioxide Level 22, Anion Gap 10, Blood Urea Nitrogen 56H, Creatinine 2.0H, Estimat Glomerular Filtration Rate , Glucose Level 258#H, Calcium Level 7.8L 02/25/19 06:15: Lactic Acid Level 3.00H 02/25/19 08:00: Random Amikacin Level 24.3 02/25/19 09:00: Arterial Blood pH 7.408, Arterial Blood Partial Pressure CO2 25.5L, Arterial Blood Partial Pressure O2 113.2H, Arterial Blood HCO3 15.7*L, Arterial Blood Oxygen Saturation 97.9, Arterial Blood Base Excess -7.7L, Cam Test Positive Height (Feet): 5 Height (Inches): 8.00 Weight (Pounds): 175 General Appearance: other - intubated EENT: PERRL/EOMI Cardiovascular: normal rate, regular rhythm Respiratory/Chest: rhonchi - bilaterally Abdomen: decreased bowel sounds Edema: 1+ Arm (L), 1+ Arm (R), 1+ Leg (L), 1+ Leg (R), 1+ Pedal (L), 1+ Pedal ( R), 1+ Generalized Jakub García MD Feb 25, 2019 12:03
--- NOTE | 2019-02-25 12:06 | NUR ---
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 101.9 HR 101 RR 35 B/P 111/44 CPAP FIO2 30 PEEP 5 PS 8 WBC 21.2 NA 157 K 3.1 BUN 56 CR 2.0 LACTID ACID 3.00 IS: IVF D5@ 75ML/HR LEVOPHED GTT FENTANYL GTT DOXYCYCLINE IV AMIKACIN IV PROTONIX IV ICU STATUS
[2019-02-25 12:14] LABS: ANION GAP 11 mmol/L (5-15); BLOOD UREA NITROGEN 53 mg/dL (7-18); CARBON DIOXIDE 21 MMOL/L (21-32); CHLORIDE 126 MMOL/L (98-107); POTASSIUM 3.4 MMOL/L (3.5-5.1); SODIUM 158 MMOL/L (136-145)
[2019-02-25 12:17] LABS: PHOSPHORUS 2.7 MG/DL (2.5-4.9)
--- NOTE | 2019-02-25 12:32 | GI Initial Consult Note ---
History of Present Illness General Date patient seen: Feb 25, 2019 Time patient seen: 12:27 Reason for Hospitalization: Fever Referring physician: BROCK Reason for Consultation: GT Feeding Intolerance Present Illness HPI Patient is an 84-year-old female brought in by EMS after increased fever and altered mental status. Patient had been noted to be more obtunded. She had prior history of dementia. Patient was noted to have fever up to 100.6. Patient was brought to the hospital and was noted to be hypotensive by EMS and was started on IV fluids. She had prior history of G-tube dependence. History is limited by patient's mental status and confusion. Patient was noted to have blood sugar greater than 200 initially. Home Meds Active Scripts Polyethylene Glycol 3350* (MIRALAX*) 17 Gm Powd.pack, 17 GM GT DAILYPRN PRN for Constipation, #30 PACK Prov:Gema Mack DIMENSIONAL INSPECTOR 06/29/15 Reported Medications Acetaminophen* (ACETAMINOPHEN 325MG TABLET*) 325 Mg Tablet, 650 MG GT Q4H PRN for Moderate Pain (Pain Scale 4-6), TAB 02/24/19 Memantine HCl (Memantine HCl) 2 Mg/1 Ml Solution, 5 ML GT BID, MG 02/24/19 Multivitamin with Minerals (Support) 237 Ml Liquid, 5 ML GT DAILY, ML 02/24/19 Atorvastatin Calcium* (LIPITOR*) 10 Mg Tablet, 10 MG GT BEDTIME, TAB 02/24/19 Doxazosin Mesylate* (CARDURA*) 1 Mg Tablet, 1 MG GT BEDTIME, TAB 02/23/19 Sucralfate (CARAFATE) 1 Gm/10 Ml Oral.susp, 10 ML GT FOUR TIMES A DAY, ML 02/23/19 Bethanechol Chl (Bethanechol Chloride) 5 Mg Tablet, 5 MG GT THREE TIMES A DAY, TAB 0 Refills 02/23/19 Docusate Sodium (DOCUSATE SODIUM) 50 Mg/5 Ml Liquid, 25 ML GT DAILY, ML 06/21/15 Vit C/Ascorbate Ca/Ascorb Sod (VITAMIN C 500 MG/15 ML LIQUID) 500 Mg/15 Ml Liquid, 500 MG GT DAILY, ML 06/21/15 Acetaminophen (Tylenol) 325 Mg Tab, 325 MG GT Q4HR PRN for Fever/Headache/Mild Pain, TAB 0 Refills 06/21/15 Insulin Aspart (Novolog Flexpen) 100 Units/Ml Pen, SQ Q6HR 06/21/15 Rivastigmine Tartrate (Exelon) 9.5 Mg Tdsy, 9.5 MG TD DAILY, PATCH 06/21/15 Ipratropium/Albuterol Sulfate (DuoNeb 0.5-3(2.5)mg/3ml) 3 Ml Ampul.neb, 3 ML HHN Q6HR PRN for Shortness of Breath, EA 06/21/15 Cranberry Extract (CRANBERRY) 425 Mg Capsule, 425 MG GT DAILY, CAP 06/21/15 Loratadine (CLARITIN) 10 Mg Capsule, 10 MG GT DAILY, CAP 06/21/15 Aspirin* (ASPIR 81*) 81 Mg Tablet.dr, 81 MG GT DAILY, TAB 06/21/15 Discontinued Reported Medications Triamcinolone Acet (Triamcinolone Acetonide) 15 Gm Cr, 15 GM TOPIC TWICE A DAY, GM 06/21/15 Nystatin (NYSTATIN) 1 Each Powder.ea., 1 EACH TOPIC TWICE A DAY, EA 06/21/15 Memantine Hcl* (NAMENDA*) 10 Mg Tablet, 10 MG GT TWICE A DAY, TAB 06/21/15 Multivitamin Liquid* (MULTI-DELYN*) 237 Ml Liquid, 5 ML GT DAILY, ML 06/21/15 Sucralfate* (CARAFATE*) 1 Gm Tablet, 1 GM GT Q6HR, TAB 06/21/15 Atorvastatin Calcium* (ATORVASTATIN CALCIUM*) 20 Mg Tablet, 10 MG GT BEDTIME, TAB 06/21/15 Med list reviewed/reconciled: Yes Allergies: Coded Allergies: SULFA (SULFONAMIDE ANTIBIOTICS) (Unverified Allergy, Unknown, 09/30/18) COPIED FROM UNCODED Uncoded Allergies: SULFA (Allergy, Unknown, 11/20/18) Patient History Limited by: medical condition History Provided By: Patient, Medical Record PMH Narrative Hx Cardiac Problems: Yes - CHF Hx Hypertension: Yes Hx Diabetes: Yes - type 2 Hx Cancer: No Hx Gastrointestinal Problems: Yes Hx Neurological Problems: Yes Hx Dementia: Yes Review of Systems All Other Systems: negative except mentioned in HPI Physical Exam Vital Signs Date Time Temp Pulse Resp B/P (MAP) Pulse Ox O2 Delivery O2 Flow Rate FiO2 02/23/19 07:27 100.8 108 19 98/58 (71) 93 Non-Rebreather 15.0 02/23/19 08:14 100 Sp02 EP Interpretation: reviewed, normal Labs Laboratory Tests Test 02/24/19 14:10 02/24/19 16:00 02/24/19 16:20 02/24/19 21:45 Sodium Level 155 MMOL/L (136-145) H Potassium Level 3.1 MMOL/L (3.5-5.1) L Chloride Level 122 MMOL/L (98-107) H Carbon Dioxide Level 22 MMOL/L (21-32) Anion Gap 11 mmol/L (5-15) Blood Urea Nitrogen 73 mg/dL (7-18) H Creatinine 2.2 MG/DL (0.55-1.30) H Estimat Glomerular Filtration Rate mL/min (>60) Glucose Level 417 MG/DL (74-106) #H Lactic Acid Level 3.30 mmol/L (0.4-2.0) H 2.70 mmol/L (0.66-2.22) H 2.40 mmol/L (0.4-2.0) H Calcium Level 8.0 MG/DL (8.5-10.1) L Urine Color Pale yellow Urine Appearance Slightly cloudy Urine pH 6 (4.5-8.0) Urine Specific [place] 1.010 (1.005-1.035) Urine Protein 3+ (NEGATIVE) H Urine Glucose (UA) 4+ (NEGATIVE) H Urine Ketones Negative (NEGATIVE) Urine Blood 4+ (NEGATIVE) H Urine Nitrite Negative (NEGATIVE) Urine Bilirubin Negative (NEGATIVE) Urine Urobilinogen Normal MG/DL (0.0-1.0) Urine Leukocyte Esterase 2+ (NEGATIVE) H Urine RBC 15-20 /HPF (0 - 2) H Urine WBC 10-15 /HPF (0 - 2) H Urine Squamous Epithelial Cells Few /LPF (NONE/OCC) Urine Bacteria Moderate /HPF (NONE) H Urine Legionella Antigen Pending Test 02/24/19 23:45 02/25/19 04:20 02/25/19 06:15 02/25/19 08:00 Lactic Acid Level 2.30 mmol/L (0.66-2.22) H 2.40 mmol/L (0.4-2.0) H 3.00 mmol/L (0.66-2.22) H White Blood Count 24.2 K/UL (4.8-10.8) *H Red Blood Count 3.04 M/UL (4.20-5.40) L Hemoglobin 9.8 G/DL (12.0-16.0) L Hematocrit 32.3 % (37.0-47.0) L Mean Corpuscular Volume 107 FL (80-99) H Mean Corpuscular Hemoglobin 32.3 PG (27.0-31.0) H Mean Corpuscular Hemoglobin Concent 30.3 G/DL (32.0-36.0) L Red Cell Distribution Width 16.3 % (11.6-14.8) H Platelet Count 93 K/UL (150-450) L Mean Platelet Volume 11.5 FL (6.5-10.1) H Neutrophils (%) (Auto) % (45.0-75.0) Lymphocytes (%) (Auto) % (20.0-45.0) Monocytes (%) (Auto) % (1.0-10.0) Eosinophils (%) (Auto) % (0.0-3.0) Basophils (%) (Auto) % (0.0-2.0) Differential Total Cells Counted 100 Neutrophils % (Manual) 81 % (45-75) H Lymphocytes % (Manual) 16 % (20-45) L Monocytes % (Manual) 3 % (1-10) Eosinophils % (Manual) 0 % (0-3) Basophils % (Manual) 0 % (0-2) Band Neutrophils 0 % (0-8) Platelet Estimate Decreased L Platelet Morphology Normal Anisocytosis 1+ Macrocytosis 1+ Sodium Level 157 MMOL/L (136-145) H 158 MMOL/L (136-145) H Potassium Level 3.1 MMOL/L (3.5-5.1) L 3.4 MMOL/L (3.5-5.1) L Chloride Level 125 MMOL/L (98-107) H 126 MMOL/L (98-107) H Carbon Dioxide Level 22 MMOL/L (21-32) 21 MMOL/L (21-32) Anion Gap 10 mmol/L (5-15) 11 mmol/L (5-15) Blood Urea Nitrogen 56 mg/dL (7-18) H 53 mg/dL (7-18) H Creatinine 2.0 MG/DL (0.55-1.30) H 2.0 MG/DL (0.55-1.30) H Estimat Glomerular Filtration Rate mL/min (>60) mL/min (>60) Glucose Level 258 MG/DL (74-106) #H 321 MG/DL (74-106) H Calcium Level 7.8 MG/DL (8.5-10.1) L 7.0 MG/DL (8.5-10.1) L Phosphorus Level 2.7 MG/DL (2.5-4.9) Magnesium Level 2.9 MG/DL (1.8-2.4) H Random Amikacin Level 24.3 ug/mL Test 02/25/19 09:00 Arterial Blood pH 7.408 (7.350-7.450) Arterial Blood Partial Pressure CO2 25.5 mmHg (35.0-45.0) L Arterial Blood Partial Pressure O2 113.2 mmHg (75.0-100.0) H Arterial Blood HCO3 15.7 mmol/L (22.0-26.0) *L Arterial Blood Oxygen Saturation 97.9 % (95-100) Arterial Blood Base Excess -7.7 (-2-2) L Cam Test Positive General Appearance: no apparent distress Head: normocephalic EENT: PERRL/EOMI, normal ENT inspection Neck: supple Respiratory: no respiratory distress Cardiovascular: normal rate Gastrointestinal: normal inspection, non tender, soft, normal bowel sounds, non -distended Rectal: deferred Genitourinary: no CVA tenderness Musculoskeletal: normal inspection, back normal Neurologic: alert, responsive Skin: normal inspection, normal color, no rash, warm/dry, palpation normal, well hydrated Lymphatic: normal inspection, no adenopathy Current Medications Current Medications Medications (Trade) Dose Ordered Sig/Chandu Route PRN Reason Start Time Stop Time Status Last Admin Dose Admin Acetaminophen (Tylenol) 650 mg Q4H PRN GT Temp > 100.5 02/23/19 17:00 03/25/19 16:59 02/25/19 07:54 Albuterol/ Ipratropium (Albuterol/ Ipratropium) 3 ml Q4HRT HHN 02/23/19 15:00 02/28/19 14:59 02/25/19 07:08 Amikacin Protocol (Amikacin pharmacy to dose) 1 ea DAILY PRN MISC Per rx protocol 02/24/19 16:45 03/26/19 16:44 Amikacin Sulfate 800 mg/Sodium Chloride 113.2 ml @ 113.2 mls/ hr Q48H IV 02/26/19 21:00 03/05/19 20:59 Ascorbic Acid (Vitamin C) 500 mg DAILY ORAL 02/24/19 09:00 03/26/19 08:59 02/25/19 08:44 Atorvastatin Calcium (Lipitor) 10 mg BEDTIME ORAL 02/23/19 21:00 03/25/19 20:59 02/24/19 20:40 Bethanechol Chloride (Urecholine) 5 mg THREE TIMES A DAY ORAL 02/23/19 18:00 03/25/19 17:59 02/25/19 08:44 Chlorhexidine Gluconate (Sue-Hex 2%) 1 applic DAILY@2000 TOPIC 02/23/19 20:00 03/25/19 19:59 02/24/19 19:47 Dextrose 1,000 ml @ 75 mls/hr [id number] IV 02/25/19 06:30 03/27/19 06:29 02/25/19 06:42 Dextrose (Dextrose 50%) 25 ml Q30M PRN IV Hypoglycemia 02/23/19 11:45 03/25/19 11:44 Dextrose (Dextrose 50%) 50 ml Q30M PRN IV Hypoglycemia 02/23/19 11:45 03/25/19 11:44 Doxycycline Hyclate 100 mg/ Dextrose 110 ml @ 110 mls/hr Q12HR@0600,1800 IV 02/23/19 18:00 03/02/19 17:59 02/25/19 05:36 Fentanyl Citrate 1000 mcg/Sodium Chloride 100 ml @ 0 mls/hr Q24H IV 02/23/19 14:00 03/02/19 13:59 Insulin Aspart (NovoLOG) q3hr Q3HR SUBQ 02/23/19 15:30 03/25/19 15:29 02/25/19 08:56 Memantine (Namenda) 10 mg Q12HR ORAL 02/23/19 21:00 03/25/19 20:59 02/25/19 08:44 Meropenem 1 gm/ Sodium Chloride 55 ml @ 110 mls/hr Q12HR@0600,1800 IVPB 02/24/19 18:00 03/01/19 17:59 02/25/19 05:36 Multivitamins (Multivitamins W/ Minerals 15ml Liquid) 15 ml DAILY GT 02/24/19 09:00 03/26/19 08:59 02/25/19 08:44 Norepinephrine Bitartrate 8 mg/ Dextrose 500 ml @ 0 mls/hr Q24H IV 02/24/19 23:00 03/26/19 22:59 02/25/19 08:03 Pantoprazole (Protonix) 40 mg DAILY IVP 02/24/19 09:00 03/26/19 08:59 02/25/19 08:44 Polyethylene Glycol (Miralax) 17 gm DAILYPRN PRN ORAL Constipation 02/23/19 12:15 03/25/19 12:14 Vancomycin HCl (Vanco rx to dose) 1 ea DAILY PRN MISC Per rx protocol 02/23/19 12:15 03/25/19 12:14 GI: Plan Problems: (1) Feeding by G-tube (2) Diabetes (3) Anemia (4) Sepsis Plan hold reglan until kidney function improve defer low dose erythromycin given drug interaction hold GTFs now, restart 8 hours later at low rate GT site care daily/prn GTFs per RD electrolyte correction ppi prn transfusions Discussed with Dr. Rutledge. Thank you for this patient referral, we will follow. The patient was seen and examined at bedside and all new and available data was reviewed in the patients chart. I agree with the above findings, impression and plan. (Patient seen earlier today. Signature stamp does not reflect patient encounter time.). - MD Belem CejaDignity Health Arizona General HospitalJorge DIMENSIONAL INSPECTOR Feb 25, 2019 12:32
--- NOTE | 2019-02-25 14:05 | Infectious Diseases Prog Note ---
Assessment/Plan Assessment/Plan Assessment: Septic Shock- likely 2ry to PNA- r/o UTI, r/o bacteremia -CXR:Endotracheal tube 2.8 cm above the ludwig in good position. Mild cardiomegaly. Mild right upper lobe interstitial prominence. -CT head: No acute intracranial process. Involutional changes with small vessel disease. Moderate ethmoid sinus mucosal thickening and fluid. Small fluid level in the right sphenoid sinus. -u/a wbc 5-10, nit neg, leuk +1; ucx NTD -Bcx NTD -sp cx +4 GNR -2d Echo Acute respiratory failure s/p intubation 02/23 Fever Leukocytosis; increased Lactic acidosis; increased NAOMY on CKD Hypernatremia hx of MRSA bacteremia 11/2018 -TTE no vegetation hx of ESBL E.coli UTI 11/2018 HTN Dm2 CHF COPD dysphagia s/p GT HLD OA advanced Dementia non verbal SNF resident Plan: -Continue empiric IV Vancomycin and Doxycycline #3 -Continue empiric Meropenem (given hx of ESBL) and Amikacin #2 pending cultures -02/24 SP Zosyn #2 -02/23 SP Cefepime x1, Flagyl x1 -f/u cx -Monitor CBC/BMP, temperatures -f/u legionella ag urine -Cdiff if diarrhea -CXR, KUB Thank you for this consultation. Will continue to follow along with you. Discussed with RN. Subjective Allergies: Coded Allergies: SULFA (SULFONAMIDE ANTIBIOTICS) (Unverified Allergy, Unknown, 09/30/18) COPIED FROM UNCODED Uncoded Allergies: SULFA (Allergy, Unknown, 11/20/18) Subjective Tm 101.9 wbc increased remains on levophed 15 Bcx NTD Objective Vital Signs Last 24 Hour Vital Signs Date Time Temp Pulse Resp B/P (MAP) Pulse Ox O2 Delivery O2 Flow Rate FiO2 02/25/19 13:02 95 28 30 30 02/25/19 12:30 91 25 118/47 (70) 100 02/25/19 12:00 101 02/25/19 12:00 94 02/25/19 12:00 100.1 91 29 108/44 (65) 100 02/25/19 12:00 Mechanical Ventilator 02/25/19 11:30 92 26 102/48 (66) 100 02/25/19 11:00 108/44 02/25/19 11:00 92 26 104/49 (67) 100 02/25/19 10:50 96 29 30 30 02/25/19 10:50 Mechanical Ventilator 30 02/25/19 10:50 Mechanical Ventilator 30 02/25/19 10:30 93 25 95/78 (84) 100 02/25/19 10:00 113/48 02/25/19 10:00 92 27 113/48 (69) 100 02/25/19 09:32 100 02/25/19 09:30 93 30 104/43 (63) 100 02/25/19 09:20 95 32 30 30 02/25/19 09:15 93 25 118/39 (65) 100 02/25/19 09:00 95 25 83/35 (51) 100 02/25/19 09:00 83/35 02/25/19 08:30 30 02/25/19 08:30 93 30 99/50 (66) 100 02/25/19 08:24 100.3 02/25/19 08:03 113/42 02/25/19 08:00 Mechanical Ventilator 02/25/19 08:00 101 35 116/48 (70) 100 02/25/19 08:00 116/48 02/25/19 08:00 30 02/25/19 08:00 101 02/25/19 07:30 101.9 101 35 111/44 (66) 100 02/25/19 07:07 98 28 100 Mechanical Ventilator 30 02/25/19 07:05 97 31 30 02/25/19 07:00 119/35 02/25/19 07:00 93 16 119/35 (63) 100 02/25/19 07:00 98 30 100 Mechanical Ventilator 30 02/25/19 06:30 98 31 114/41 (65) 99 02/25/19 06:00 117/41 02/25/19 06:00 94 31 117/41 (66) 99 02/25/19 05:30 94 29 121/53 (75) 100 02/25/19 05:08 92 27 30 02/25/19 05:00 119/62 02/25/19 05:00 91 24 119/62 (81) 100 02/25/19 04:30 94 24 108/44 (65) 100 02/25/19 04:00 30 02/25/19 04:00 111/50 8/5/19 04:00 98.8 90 29 111/50 (70) 100 02/25/19 04:00 Mechanical Ventilator 02/25/19 03:30 89 24 106/50 (68) 100 02/25/19 03:22 89 02/25/19 03:21 98 29 99 Mechanical Ventilator 30 02/25/19 03:11 96 27 100 Mechanical Ventilator 30 02/25/19 03:10 96 27 30 02/25/19 03:00 115/48 02/25/19 03:00 89 22 115/48 (70) 100 02/25/19 02:30 89 26 105/42 (63) 100 02/25/19 02:00 110/47 02/25/19 02:00 97 30 110/47 (68) 100 02/25/19 01:30 92 32 116/44 (68) 100 02/25/19 01:00 115/43 02/25/19 01:00 98 32 115/43 (67) 100 02/25/19 01:00 98 33 30 02/25/19 00:30 100 34 114/47 (69) 100 02/25/19 00:00 30 02/25/19 00:00 Mechanical Ventilator 02/25/19 00:00 107/44 02/25/19 00:00 100.9 101 32 107/44 (65) 100 02/24/19 23:35 114/48 02/24/19 23:32 103 02/24/19 23:30 104 32 114/48 (70) 100 02/24/19 23:05 103 30 100 Mechanical Ventilator 30 02/24/19 23:00 104 21 106/49 (68) 100 02/24/19 23:00 106/49 02/24/19 22:55 104 33 30 02/24/19 22:55 104 33 100 Mechanical Ventilator 30 02/24/19 22:30 101 33 114/49 (70) 100 02/24/19 22:00 116/51 02/24/19 22:00 103 33 116/51 (72) 100 02/24/19 21:30 104 25 113/46 (68) 100 02/24/19 21:16 101 33 30 02/24/19 21:00 104 27 118/47 (70) 100 02/24/19 21:00 118/47 02/24/19 20:30 97 32 140/48 (78) 100 02/24/19 20:00 Mechanical Ventilator 02/24/19 20:00 30 02/24/19 20:00 100.3 98 33 104/37 (59) 100 02/24/19 20:00 104/37 02/24/19 19:47 135/44 02/24/19 19:30 99 33 135/44 (74) 100 02/24/19 19:22 96 02/24/19 19:18 97 31 100 Mechanical Ventilator 30 02/24/19 19:08 96 31 100 Mechanical Ventilator 30 02/24/19 19:08 96 31 30 02/24/19 19:00 96 32 129/53 (78) 100 02/24/19 19:00 129/53 02/24/19 18:30 97 32 126/42 (70) 100 02/24/19 18:00 97 31 126/47 (73) 100 02/24/19 18:00 127/49 02/24/19 17:30 97 32 130/41 (70) 100 02/24/19 17:00 97 32 116/48 (70) 100 02/24/19 17:00 116/48 02/24/19 16:54 100 31 30 02/24/19 16:30 97 31 127/42 (70) 100 02/24/19 16:00 99.7 96 32 124/50 (74) 100 02/24/19 16:00 30 02/24/19 16:00 96 02/24/19 16:00 124/50 02/24/19 16:00 Mechanical Ventilator 02/24/19 15:30 100.4 94 31 115/33 (60) 100 02/24/19 15:24 99 30 30 02/24/19 15:24 99 30 100 Mechanical Ventilator 30 02/24/19 15:16 95 30 100 Mechanical Ventilator 30 02/24/19 15:14 115/46 02/24/19 15:00 115/62 02/24/19 15:00 96 32 115/46 (69) 100 02/24/19 14:30 95 33 123/42 (69) 100 02/24/19 14:00 101.3 99 35 104/39 (60) 100 02/24/19 14:00 104/39 02/24/19 13:49 101 Height (Feet): 5 Height (Inches): 8.00 Weight (Pounds): 175 Objective General Appearance: lethargic, moderate distress Lines, tubes and drains: peripheral, central line, gtube HEENT: normocephalic, atraumatic, anicteric, mucous membranes moist, PERRL, EOMI, pharynx normal, supple, no JVD Neck: non-tender, normal alignment, supple, normal inspection Respiratory/Chest: accessory muscle use, crackles/rales, rhonchi - bilaterally , rhonchi - left Cardiovascular/Chest: normal peripheral pulses, regular rhythm, tachycardia Abdomen: normal bowel sounds, non tender, soft, no organomegaly, no mass Extremities: normal range of motion, non-tender, normal inspection, no calf tenderness, normal capillary refill, non-pitting Skin Exam: normal pigmentation, warm/dry, cyanotic Neurologic: sensory deficit, unresponsiveness Microbiology Date/Time Source Procedure Growth Status 02/23/19 08:05 Blood Blood Culture - Preliminary NO GROWTH AFTER 24 HOURS Resulted 02/23/19 08:00 Blood Blood Culture - Preliminary NO GROWTH AFTER 24 HOURS Resulted 02/24/19 07:40 Sputum Induced Gram Stain Pending Resulted 02/24/19 07:40 Sputum Culture - Preliminary Gram Negative Bacillus 1 Resulted 02/24/19 16:00 Indwelling Cath Urine Culture - Preliminary NO GROWTH Resulted Laboratory Tests Test 02/24/19 14:10 02/24/19 16:00 02/24/19 16:20 02/24/19 21:45 Sodium Level 155 MMOL/L (136-145) H Potassium Level 3.1 MMOL/L (3.5-5.1) L Chloride Level 122 MMOL/L (98-107) H Carbon Dioxide Level 22 MMOL/L (21-32) Anion Gap 11 mmol/L (5-15) Blood Urea Nitrogen 73 mg/dL (7-18) H Creatinine 2.2 MG/DL (0.55-1.30) H Estimat Glomerular Filtration Rate mL/min (>60) Glucose Level 417 MG/DL (74-106) #H Lactic Acid Level 3.30 mmol/L (0.4-2.0) H 2.70 mmol/L (0.66-2.22) H 2.40 mmol/L (0.4-2.0) H Calcium Level 8.0 MG/DL (8.5-10.1) L Urine Color Pale yellow Urine Appearance Slightly cloudy Urine pH 6 (4.5-8.0) Urine Specific [place] 1.010 (1.005-1.035) Urine Protein 3+ (NEGATIVE) H Urine Glucose (UA) 4+ (NEGATIVE) H Urine Ketones Negative (NEGATIVE) Urine Blood 4+ (NEGATIVE) H Urine Nitrite Negative (NEGATIVE) Urine Bilirubin Negative (NEGATIVE) Urine Urobilinogen Normal MG/DL (0.0-1.0) Urine Leukocyte Esterase 2+ (NEGATIVE) H Urine RBC 15-20 /HPF (0 - 2) H Urine WBC 10-15 /HPF (0 - 2) H Urine Squamous Epithelial Cells Few /LPF (NONE/OCC) Urine Bacteria Moderate /HPF (NONE) H Urine Legionella Antigen Pending Test 02/24/19 23:45 02/25/19 04:20 02/25/19 06:15 02/25/19 08:00 Lactic Acid Level 2.30 mmol/L (0.66-2.22) H 2.40 mmol/L (0.4-2.0) H 3.00 mmol/L (0.66-2.22) H White Blood Count 24.2 K/UL (4.8-10.8) *H Red Blood Count 3.04 M/UL (4.20-5.40) L Hemoglobin 9.8 G/DL (12.0-16.0) L Hematocrit 32.3 % (37.0-47.0) L Mean Corpuscular Volume 107 FL (80-99) H Mean Corpuscular Hemoglobin 32.3 PG (27.0-31.0) H Mean Corpuscular Hemoglobin Concent 30.3 G/DL (32.0-36.0) L Red Cell Distribution Width 16.3 % (11.6-14.8) H Platelet Count 93 K/UL (150-450) L Mean Platelet Volume 11.5 FL (6.5-10.1) H Neutrophils (%) (Auto) % (45.0-75.0) Lymphocytes (%) (Auto) % (20.0-45.0) Monocytes (%) (Auto) % (1.0-10.0) Eosinophils (%) (Auto) % (0.0-3.0) Basophils (%) (Auto) % (0.0-2.0) Differential Total Cells Counted 100 Neutrophils % (Manual) 81 % (45-75) H Lymphocytes % (Manual) 16 % (20-45) L Monocytes % (Manual) 3 % (1-10) Eosinophils % (Manual) 0 % (0-3) Basophils % (Manual) 0 % (0-2) Band Neutrophils 0 % (0-8) Platelet Estimate Decreased L Platelet Morphology Normal Anisocytosis 1+ Macrocytosis 1+ Sodium Level 157 MMOL/L (136-145) H 158 MMOL/L (136-145) H Potassium Level 3.1 MMOL/L (3.5-5.1) L 3.4 MMOL/L (3.5-5.1) L Chloride Level 125 MMOL/L (98-107) H 126 MMOL/L (98-107) H Carbon Dioxide Level 22 MMOL/L (21-32) 21 MMOL/L (21-32) Anion Gap 10 mmol/L (5-15) 11 mmol/L (5-15) Blood Urea Nitrogen 56 mg/dL (7-18) H 53 mg/dL (7-18) H Creatinine 2.0 MG/DL (0.55-1.30) H 2.0 MG/DL (0.55-1.30) H Estimat Glomerular Filtration Rate mL/min (>60) mL/min (>60) Glucose Level 258 MG/DL (74-106) #H 321 MG/DL (74-106) H Calcium Level 7.8 MG/DL (8.5-10.1) L 7.0 MG/DL (8.5-10.1) L Phosphorus Level 2.7 MG/DL (2.5-4.9) Magnesium Level 2.9 MG/DL (1.8-2.4) H Random Amikacin Level 24.3 ug/mL Test 02/25/19 09:00 02/25/19 13:00 Arterial Blood pH 7.408 (7.350-7.450) Arterial Blood Partial Pressure CO2 25.5 mmHg (35.0-45.0) L Arterial Blood Partial Pressure O2 113.2 mmHg (75.0-100.0) H Arterial Blood HCO3 15.7 mmol/L (22.0-26.0) *L Arterial Blood Oxygen Saturation 97.9 % (95-100) Arterial Blood Base Excess -7.7 (-2-2) L Cam Test Positive Lactic Acid Level 3.10 mmol/L (0.4-2.0) H Current Medications Medications (Trade) Dose Ordered Sig/Chandu Route PRN Reason Start Time Stop Time Status Last Admin Dose Admin Acetaminophen (Tylenol) 650 mg Q4H PRN GT Temp > 100.5 02/23/19 17:00 03/25/19 16:59 02/25/19 07:54 Albuterol/ Ipratropium (Albuterol/ Ipratropium) 3 ml Q4HRT HHN 02/23/19 15:00 02/28/19 14:59 02/25/19 07:08 Amikacin Protocol (Amikacin pharmacy to dose) 1 ea DAILY PRN MISC Per rx protocol 02/24/19 16:45 03/26/19 16:44 Amikacin Sulfate 800 mg/Sodium Chloride 113.2 ml @ 113.2 mls/ hr Q48H IV 02/26/19 21:00 03/05/19 20:59 Ascorbic Acid (Vitamin C) 500 mg DAILY ORAL 02/24/19 09:00 03/26/19 08:59 02/25/19 08:44 Atorvastatin Calcium (Lipitor) 10 mg BEDTIME ORAL 02/23/19 21:00 03/25/19 20:59 02/24/19 20:40 Bethanechol Chloride (Urecholine) 5 mg THREE TIMES A DAY ORAL 02/23/19 18:00 03/25/19 17:59 02/25/19 12:36 Chlorhexidine Gluconate (Sue-Hex 2%) 1 applic DAILY@2000 TOPIC 02/23/19 20:00 03/25/19 19:59 02/24/19 19:47 Dextrose 1,000 ml @ 75 mls/hr [id number] IV 02/25/19 06:30 03/27/19 06:29 02/25/19 06:42 Dextrose (Dextrose 50%) 25 ml Q30M PRN IV Hypoglycemia 02/23/19 11:45 03/25/19 11:44 Dextrose (Dextrose 50%) 50 ml Q30M PRN IV Hypoglycemia 02/23/19 11:45 03/25/19 11:44 Doxycycline Hyclate 100 mg/ Dextrose 110 ml @ 110 mls/hr Q12HR@0600,1800 IV 02/23/19 18:00 03/02/19 17:59 02/25/19 05:36 Fentanyl Citrate 1000 mcg/Sodium Chloride 100 ml @ 0 mls/hr Q24H IV 02/23/19 14:00 03/02/19 13:59 Insulin Aspart (NovoLOG) q3hr Q3HR SUBQ 02/23/19 15:30 03/25/19 15:29 02/25/19 12:37 Memantine (Namenda) 10 mg Q12HR ORAL 02/23/19 21:00 03/25/19 20:59 02/25/19 08:44 Meropenem 1 gm/ Sodium Chloride 55 ml @ 110 mls/hr Q12HR@0600,1800 IVPB 02/24/19 18:00 03/01/19 17:59 02/25/19 05:36 Multivitamins (Multivitamins W/ Minerals 15ml Liquid) 15 ml DAILY GT 02/24/19 09:00 03/26/19 08:59 02/25/19 08:44 Norepinephrine Bitartrate 8 mg/ Dextrose 500 ml @ 0 mls/hr Q24H IV 02/24/19 23:00 03/26/19 22:59 02/25/19 08:03 Pantoprazole (Protonix) 40 mg DAILY IVP 02/24/19 09:00 03/26/19 08:59 02/25/19 08:44 Polyethylene Glycol (Miralax) 17 gm DAILYPRN PRN ORAL Constipation 02/23/19 12:15 03/25/19 12:14 Vancomycin HCl (Vanco rx to dose) 1 ea DAILY PRN MISC Per rx protocol 02/23/19 12:15 03/25/19 12:14 Frances Chavarria M.D. Feb 25, 2019 14:05
--- NOTE | 2019-02-25 14:15 | NUR ---
NURSE NOTES: Tolerating weaning well, ABG drawn and notified Dr. Nelson results, no new orders given.
--- NOTE | 2019-02-25 15:24 | NUR ---
RESPIRATORY NOTES: Weaning ended because patient became SOB. Placed back to previous settings.
--- NOTE | 2019-02-25 15:26 | Diagnostic Imaging Report ---
Indication: Dyspnea Comparison: 02/23/2019 A single view chest radiograph was obtained. Findings: Tubes and lines are stable. Basilar infiltrates have developed. Heart size is stable. IMPRESSION: Development of lower lobe infiltrates. Correlate clinically for pneumonia
--- NOTE | 2019-02-25 15:44 | Diagnostic Imaging Report ---
Indication: Abdominal pain Comparison: None Single view of the abdomen obtained Findings: There is evidence of distal sigmoid and rectal fecal impaction with distention of the rectum noted. There is a gastrostomy tube present. Degenerative changes of the spine and generalized osteopenia noted. IMPRESSION: Fecal impaction distal sigmoid/rectum.
--- NOTE | 2019-02-25 16:12 | NUR ---
NURSE NOTES: Rectal temp 98.9, turned off cooling blanket. Titrated Levophed to meet SBP >90. Patient opens eyes and withdraws to pain. Turned and repositioned, kept dry and clean.
[2019-02-25] MEDS ORDERED: Mineral Oil 30ml ud ORAL PRN (16:42)
--- NOTE | 2019-02-25 16:42 | NUR ---
NURSE NOTES: Notified NINA Patel of KUB results, received orders for x1 mineral oil GT and Oil enema.
--- NOTE | 2019-02-25 16:50 | NUR ---
NURSE NOTES: Notified Dr. Chavarria of increasing WBC and Lactic Acid. No new orders given.
[2019-02-25] MEDS ORDERED: Fleet's Mineral Oil Enema RECTAL SCH (18:00)
[2019-02-25 19:00] LABS: ANION GAP 13 mmol/L (5-15); BLOOD UREA NITROGEN 40 mg/dL (7-18); CALCIUM 7.4 MG/DL (8.5-10.1); CARBON DIOXIDE 21 MMOL/L (21-32); CHLORIDE 120 MMOL/L (98-107); CREATININE 1.8 MG/DL (0.55-1.30); POTASSIUM 2.9 MMOL/L (3.5-5.1); SODIUM 154 MMOL/L (136-145)
--- NOTE | 2019-02-25 19:30 | NUR ---
HAND-OFF: Report given to DAKOTA Blandon using SBAR.
--- NOTE | 2019-02-25 19:45 | NUR ---
NURSE NOTES: Called Dr Fernandes and made him aware of potassium of 2.9. MD placed orders for 30Meq KCL IVPB and 2 G Calcium Gluconate.
--- NOTE | 2019-02-25 20:01 | NUR ---
NURSE NOTES: Patients temperature is 100.0F (axillary). Cooling measures initiated. Cooling blanket turned on. Patient repositioned and patient noted to be passing gas.
[2019-02-25] MEDS: Dyna-Hex 2% Top Sol 2oz TOPIC SCH (20:13)
[2019-02-25] MEDS ORDERED: Calcium Gluconate 10% 2 GM in NS 110 ML IVPB SCH (21:00)
--- NOTE | 2019-02-25 22:00 | NUR ---
NURSE NOTES: Repositioned and given oral care. temperature now is 97.8F. Cooling blanket turned off. pressors ongoing.
[2019-02-26] VITALS (72 sets, daily range): BP systolic 69–129; BP diastolic 31–78
--- NOTE | 2019-02-26 | NUR ---
NURSE NOTES: Repositioned patient and provided oral care. Glucose was 142, coverage provided. Patient is making good amount of urine output. NAD at this time. Potassium replacement already given. Will continue to monitor.
--- NOTE | 2019-02-26 02:00 | NUR ---
NURSE NOTES: Repositioned patient and given oral care. Slowly titrating down pressors. NAD at this time.
[2019-02-26] MEDS: NovoLOG Insulin Flexpen SUBQ SCH ×6 (02:48→23:46)
[2019-02-26] MEDS: Norepinephrine Bitartrate 8 MG in D5W 500ml 492 ML IV SCH ×2 (02:49→10:15)
[2019-02-26] MEDS: Albuterol/Ipratropium 3ml neb HHN SCH ×6 (03:39→23:09)
--- NOTE | 2019-02-26 04:00 | NUR ---
NURSE NOTES: Patient repositioned and given oral care. Blood drawn and sent to lab. Central line dressing changed aseptically. Pressors slowly being titrating successfully.
[2019-02-26 05:19] LABS: HEMATOCRIT 27.3 % (37.0-47.0); HEMOGLOBIN 8.4 G/DL (12.0-16.0); MEAN CORPUSCULAR VOLUME 104 FL (80-99); PLATELET COUNT 79 K/UL (150-450); RED BLOOD COUNT 2.63 M/UL (4.20-5.40); RED CELL DISTRIBUTION WIDTH 16.1 % (11.6-14.8)
[2019-02-26 05:34] LABS: ANION GAP 11 mmol/L (5-15); BLOOD UREA NITROGEN 37 mg/dL (7-18); CALCIUM 8.1 MG/DL (8.5-10.1); CARBON DIOXIDE 17 MMOL/L (21-32); CHLORIDE 119 MMOL/L (98-107); CREATININE 1.8 MG/DL (0.55-1.30); POTASSIUM 3.8 MMOL/L (3.5-5.1); SODIUM 147 MMOL/L (136-145)
[2019-02-26 05:47] LABS: WHITE BLOOD COUNT 23.1 K/UL (4.8-10.8)
[2019-02-26] MEDS: Doxycycline Hyclate 100 MG in D5W 110 ML IV SCH ×2 (05:52→17:31)
[2019-02-26] MEDS: Meropenem 1 GM in NS 55 ML IVPB SCH ×2 (05:53→17:31)
--- NOTE | 2019-02-26 06:00 | NUR ---
NURSE NOTES: Pressors now at 2mcg. HR is ST. Temperature is 98.7F. Repositioned patient. Glucose is 175, coverage provided. Will continue to monitor.
[2019-02-26] MEDS ORDERED: Vancomycin 1.5gm Premix IVPB SCH (07:00)
--- NOTE | 2019-02-26 07:00 | NUR ---
HAND-OFF: Report given to Chicho.
--- NOTE | 2019-02-26 07:15 | NUR ---
NURSE NOTES: Received the patient from DAKOTA Blandon. Patient slightly opens eyes spontaneously, unable to follow commands, response to painful stimuli. Orally intubated, ETT 7.0, 22cm at lip line, vent settings: AC12, TV400, FIO2 30%, PEEP 5. No acute distress noted. small wyatt secretions noted. Diminished breath sounds bilaterally upon auscultation. patient off levophed, BP 91/41, ST 103 noted on the monitor. On Glucerna 1.2 at 60 ml/hr via G-tube. Patient noted with soft non-tender distended abdomen. HOB kept elevated. Cooling blanket off, temp 98.5. Left hand 20G and Right IJ TLC intact and patent, running D5W at 75ml/hr. Dressings intact, clean and dry. Scales cath intact, draining urine by gravity. Bed in lowest position, locked, side rails upx3. Will continue to monitor.
--- NOTE | 2019-02-26 07:18 | NUR ---
NURSE NOTES: started weaning trial by RT.
--- NOTE | 2019-02-26 07:20 | NUR ---
RESPIRATORY NOTES: Received patient on ACVC RR 12, VT 400, FIO2 30%, PEEP +5. Intubated with 7.0 ETT at 22cm at the lip, secured with anchorfast. Bilateral breath sounds reveal rhonchi. Suctioned small amount of thick wyatt yellow secretions through the ETT and thin clear secretions orally. Patient is currently obtundent. Alarms are on and audible. Vent plugged into red outlet. Will continue to monitor throughout the day. Began weaning at 0720. Placed patient on PS +8 PEEP +5 Fio2 30%. Will continue to monitor throughout the day.
[2019-02-26] MEDS: Bethanechol 10mg Tab ORAL SCH ×3 (08:03→17:31)
[2019-02-26] MEDS: Ascorbic Acid 500mg tab ORAL SCH (08:03)
[2019-02-26] MEDS: Memantine 10mg tab ORAL SCH ×2 (08:03→20:52)
[2019-02-26] MEDS: Multivitamins W/Minerals 15 ML UDC GT SCH (08:03)
[2019-02-26] MEDS: Pantoprazole Inj IVP SCH (08:03)
--- NOTE | 2019-02-26 08:52 | Critical Care Progress Note ---
Assessment/Plan Assessment/Plan Impression: Pneumonia Severe sepsis Respiratory failure Dehydration Hypernatremia Ethmoid sinusitis Diabetes Acute renal failure leukocytosis protein calorie malnutrition Plan care noted IV antibiotics; monitor cultures respiratory care Ventilatory meds supportive care as outlined suction as needed oxygen therapy prognosis guarded not ready for wean medications/laboratory data/nursing notes/ICU care reviewed in detail note reviewed and edited care discussed with RN and RT ICU time spent 40 minutes Critical Care - Subjective Interval Events: remains ill care noted and reviewed reduced LOC ROS Limited/Unobtainable: Yes Condition: critical EKG Rhythm: Sinus Rhythm I&O: Intake and Output 02/25/19 02/26/19 19:00 07:00 Intake Total 1593.75 ml 2293.75 ml Output Total 1980 ml 1900 ml Balance -386.25 ml 393.75 ml Free Water 30 ml 40 ml IV Total 1533.75 ml 1713.75 ml Tube Feeding 30 ml 540 ml Output Urine Total 1980 ml 1900 ml Critical Care - Objective ET-Tube: 7.0 ET Position: 22 Last 24 Hour Vital Signs Date Time Temp Pulse Resp B/P (MAP) Pulse Ox O2 Delivery O2 Flow Rate FiO2 02/26/19 08:30 98.4 97 26 92/44 (60) 100 02/26/19 08:00 30 02/26/19 08:00 97 02/26/19 08:00 100 25 91/45 (60) 100 02/26/19 08:00 Mechanical Ventilator 02/26/19 07:30 98.5 98 23 91/51 (64) 100 02/26/19 07:23 Mechanical Ventilator 30 02/26/19 07:23 Mechanical Ventilator 30 02/26/19 07:23 105 26 30 720 02/26/19 07:15 102 20 91/41 (58) 100 02/26/19 07:00 100 20 82/41 (55) 100 02/26/19 07:00 91/41 02/26/19 06:30 109 19 92/53 (66) 100 02/26/19 06:00 88/49 02/26/19 06:00 98.7 104 19 89/44 (59) 100 02/26/19 05:30 103 19 90/43 (59) 100 02/26/19 05:14 107 34 30 30 02/26/19 05:00 93/40 02/26/19 05:00 108 26 96/44 (61) 100 02/26/19 04:30 116 26 99/68 (78) 100 02/26/19 04:00 114 02/26/19 04:00 99.5 114 27 93/34 (53) 100 02/26/19 04:00 30 02/26/19 04:00 Mechanical Ventilator 02/26/19 04:00 99/68 02/26/19 04:00 112 02/26/19 03:40 114 32 100 Mechanical Ventilator 30 02/26/19 03:30 113 26 106/42 (63) 98 02/26/19 03:29 112 34 100 Mechanical Ventilator 30 02/26/19 03:29 112 34 30 30 02/26/19 03:00 105/42 02/26/19 03:00 113 25 112/53 (72) 100 02/26/19 02:49 112/53 02/26/19 02:30 107 25 93/34 (53) 97 02/26/19 02:00 88/54 02/26/19 02:00 107 26 112/53 (72) 100 02/26/19 01:30 99 25 76/31 (46) 100 02/26/19 01:26 102 34 30 30 02/26/19 01:00 98 19 93/34 (53) 100 02/26/19 01:00 93/49 02/26/19 00:30 101 18 88/51 (63) 100 02/26/19 00:00 Mechanical Ventilator 02/26/19 00:00 95 02/26/19 00:00 89/53 02/26/19 00:00 98.6 103 25 89/53 (65) 97 02/26/19 00:00 30 02/25/19 23:30 103 25 96/57 (70) 96 02/25/19 23:00 102/60 02/25/19 23:00 102 25 102/60 (74) 98 02/25/19 22:48 92 24 100 Mechanical Ventilator 30 02/25/19 22:38 99 34 100 Mechanical Ventilator 30 02/25/19 22:35 99 34 30 30 02/25/19 22:30 99 19 109/52 (71) 98 02/25/19 22:00 97.8 94 19 93/57 (69) 100 8/5/19 22:00 109/52 02/25/19 21:30 86 22 104/54 (71) 99 02/25/19 21:13 83 27 30 30 02/25/19 21:00 84 18 117/62 (80) 99 02/25/19 21:00 117/62 02/25/19 20:30 89 18 86/34 (51) 100 02/25/19 20:13 112/51 02/25/19 20:00 84 02/25/19 20:00 30 02/25/19 20:00 100/36 02/25/19 20:00 86 22 119/49 (72) 100 02/25/19 20:00 Mechanical Ventilator 02/25/19 19:30 100.0 92 22 101/45 (63) 100 02/25/19 19:18 90 12 100 Mechanical Ventilator 30 02/25/19 19:08 93 26 100 Mechanical Ventilator 30 02/25/19 19:05 93 26 30 30 02/25/19 19:00 93 19 109/53 (71) 100 02/25/19 19:00 99/39 02/25/19 18:30 95 25 88/32 (50) 100 02/25/19 18:00 95 25 97/39 (58) 100 02/25/19 17:43 100.3 02/25/19 17:30 102 25 105/46 (65) 100 02/25/19 17:25 101 28 30 02/25/19 17:00 105 25 103/60 (74) 100 02/25/19 16:54 98/55 02/25/19 16:30 103 21 98/55 (69) 100 02/25/19 16:00 99 02/25/19 16:00 107 16 92/39 (56) 100 02/25/19 16:00 Mechanical Ventilator 02/25/19 15:30 98.9 105 25 122/53 (76) 100 02/25/19 15:30 30 02/25/19 15:24 97 28 100 Mechanical Ventilator 30 02/25/19 15:22 98 30 30 02/25/19 15:14 98 30 100 Mechanical Ventilator 30 02/25/19 15:00 99 25 126/53 (77) 100 02/25/19 14:30 97 25 137/70 (92) 100 02/25/19 14:00 94 20 114/55 (74) 95 8/5/19 14:00 28 Mechanical Ventilator 15.0 30 02/25/19 13:30 94 25 118/57 (77) 100 02/25/19 13:02 95 28 30 30 02/25/19 13:00 91 25 118/47 (70) 100 02/25/19 12:30 91 25 118/47 (70) 100 02/25/19 12:00 101 02/25/19 12:00 94 02/25/19 12:00 100.1 91 29 108/44 (65) 100 02/25/19 12:00 Mechanical Ventilator 02/25/19 11:30 92 26 102/48 (66) 100 02/25/19 11:00 108/44 02/25/19 11:00 92 26 104/49 (67) 100 02/25/19 10:50 96 29 30 30 02/25/19 10:50 Mechanical Ventilator 30 02/25/19 10:50 Mechanical Ventilator 30 02/25/19 10:30 93 25 95/78 (84) 100 02/25/19 10:00 113/48 02/25/19 10:00 92 27 113/48 (69) 100 02/25/19 09:32 100 02/25/19 09:30 93 30 104/43 (63) 100 02/25/19 09:20 95 32 30 30 02/25/19 09:15 93 25 118/39 (65) 100 02/25/19 09:00 95 25 83/35 (51) 100 02/25/19 09:00 83/35 Labs: Labs Test 02/23/19 09:23 02/23/19 10:00 02/23/19 10:20 02/23/19 12:45 Arterial Blood pH 7.458 (7.350-7.450) Arterial Blood Partial Pressure CO2 32.6 mmHg (35.0-45.0) Arterial Blood Partial Pressure O2 310.3 mmHg (75.0-100.0) Arterial Blood HCO3 22.6 mmol/L (22.0-26.0) Arterial Blood Oxygen Saturation 99.1 % (95-100) Arterial Blood Base Excess -0.8 (-2-2) Cam Test Positive Urine Color Pale yellow Urine Appearance Clear Urine pH 8 (4.5-8.0) Urine Specific [place] 1.015 (1.005-1.035) Urine Protein 3+ (NEGATIVE) Urine Glucose (UA) 4+ (NEGATIVE) Urine Ketones Negative (NEGATIVE) Urine Blood 5+ (NEGATIVE) Urine Nitrite Negative (NEGATIVE) Urine Bilirubin Negative (NEGATIVE) Urine Urobilinogen Normal MG/DL (0.0-1.0) Urine Leukocyte Esterase 1+ (NEGATIVE) Urine RBC 30-40 /HPF (0 - 2) Urine WBC 5-10 /HPF (0 - 2) Urine Squamous Epithelial Cells Few /LPF (NONE/OCC) Urine Bacteria Few /HPF (NONE) Lactic Acid Level 2.30 mmol/L (0.66-2.22) Glucose Level 432 MG/DL (74-106) Hemoglobin A1c 8.3 % (4.3-6.0) Test 02/23/19 14:55 02/23/19 16:20 02/23/19 18:30 02/23/19 20:00 Arterial Blood pH 7.514 (7.350-7.450) 7.530 (7.350-7.450) Arterial Blood Partial Pressure CO2 26.6 mmHg (35.0-45.0) 24.6 mmHg (35.0-45.0) Arterial Blood Partial Pressure O2 72.1 mmHg (75.0-100.0) 180.2 mmHg (75.0-100.0) Arterial Blood HCO3 20.9 mmol/L (22.0-26.0) 20.1 mmol/L (22.0-26.0) Arterial Blood Oxygen Saturation 94.8 % (95-100) 98.7 % (95-100) Arterial Blood Base Excess -1.1 (-2-2) -1.6 (-2-2) Cam Test Positive Positive White Blood Count 18.6 K/UL (4.8-10.8) Red Blood Count 2.89 M/UL (4.20-5.40) Hemoglobin 9.5 G/DL (12.0-16.0) Hematocrit 30.3 % (37.0-47.0) Mean Corpuscular Volume 105 FL (80-99) Mean Corpuscular Hemoglobin 32.9 PG (27.0-31.0) Mean Corpuscular Hemoglobin Concent 31.4 G/DL (32.0-36.0) Red Cell Distribution Width 16.0 % (11.6-14.8) Platelet Count 98 K/UL (150-450) Mean Platelet Volume 11.4 FL (6.5-10.1) Neutrophils (%) (Auto) % (45.0-75.0) Lymphocytes (%) (Auto) % (20.0-45.0) Monocytes (%) (Auto) % (1.0-10.0) Eosinophils (%) (Auto) % (0.0-3.0) Basophils (%) (Auto) % (0.0-2.0) Differential Total Cells Counted 100 Neutrophils % (Manual) 80 % (45-75) Lymphocytes % (Manual) 15 % (20-45) Monocytes % (Manual) 5 % (1-10) Eosinophils % (Manual) 0 % (0-3) Basophils % (Manual) 0 % (0-2) Band Neutrophils 0 % (0-8) Platelet Estimate Decreased Platelet Morphology Normal Red Blood Cell Morphology Normal Sodium Level 171 MMOL/L (136-145) Potassium Level 3.6 MMOL/L (3.5-5.1) Chloride Level 135 MMOL/L (98-107) Carbon Dioxide Level 27 MMOL/L (21-32) Anion Gap 9 mmol/L (5-15) Blood Urea Nitrogen 113 mg/dL (7-18) Creatinine 2.2 MG/DL (0.55-1.30) Estimat Glomerular Filtration Rate mL/min (>60) Glucose Level 444 MG/DL (74-106) Calcium Level 7.7 MG/DL (8.5-10.1) Lactic Acid Level 3.30 mmol/L (0.4-2.0) Test 02/23/19 21:52 02/24/19 05:12 02/24/19 08:16 02/24/19 10:25 Sodium Level 164 MMOL/L (136-145) 164 MMOL/L (136-145) Potassium Level 3.3 MMOL/L (3.5-5.1) 4.3 MMOL/L (3.5-5.1) Chloride Level 130 MMOL/L (98-107) 129 MMOL/L (98-107) Carbon Dioxide Level 23 MMOL/L (21-32) 23 MMOL/L (21-32) Anion Gap 12 mmol/L (5-15) 12 mmol/L (5-15) Blood Urea Nitrogen 103 mg/dL (7-18) 90 mg/dL (7-18) Creatinine 2.2 MG/DL (0.55-1.30) 2.2 MG/DL (0.55-1.30) Estimat Glomerular Filtration Rate mL/min (>60) mL/min (>60) Glucose Level 377 MG/DL (74-106) 251 MG/DL (74-106) Lactic Acid Level 2.60 mmol/L (0.4-2.0) 2.60 mmol/L (0.4-2.0) 2.90 mmol/L (0.66-2.22) Calcium Level 7.4 MG/DL (8.5-10.1) 8.5 MG/DL (8.5-10.1) White Blood Count 21.6 K/UL (4.8-10.8) Red Blood Count 2.90 M/UL (4.20-5.40) Hemoglobin 9.3 G/DL (12.0-16.0) Hematocrit 31.4 % (37.0-47.0) Mean Corpuscular Volume 108 FL (80-99) Mean Corpuscular Hemoglobin 32.1 PG (27.0-31.0) Mean Corpuscular Hemoglobin Concent 29.7 G/DL (32.0-36.0) Red Cell Distribution Width 16.5 % (11.6-14.8) Platelet Count 87 K/UL (150-450) Mean Platelet Volume 11.2 FL (6.5-10.1) Neutrophils (%) (Auto) % (45.0-75.0) Lymphocytes (%) (Auto) % (20.0-45.0) Monocytes (%) (Auto) % (1.0-10.0) Eosinophils (%) (Auto) % (0.0-3.0) Basophils (%) (Auto) % (0.0-2.0) Differential Total Cells Counted 100 Neutrophils % (Manual) 84 % (45-75) Lymphocytes % (Manual) 11 % (20-45) Monocytes % (Manual) 5 % (1-10) Eosinophils % (Manual) 0 % (0-3) Basophils % (Manual) 0 % (0-2) Band Neutrophils 0 % (0-8) Platelet Estimate Decreased Platelet Morphology Normal Anisocytosis 1+ Macrocytosis 1+ Phosphorus Level 3.1 MG/DL (2.5-4.9) Magnesium Level 3.8 MG/DL (1.8-2.4) Total Creatine Kinase 239 U/L (26-308) Random Vancomycin Level 9.8 ug/mL Arterial Blood pH 7.453 (7.350-7.450) Arterial Blood Partial Pressure CO2 29.6 mmHg (35.0-45.0) Arterial Blood Partial Pressure O2 87.9 mmHg (75.0-100.0) Arterial Blood HCO3 20.3 mmol/L (22.0-26.0) Arterial Blood Oxygen Saturation 96.2 % (95-100) Arterial Blood Base Excess -3.0 (-2-2) Cam Test Positive Test 02/24/19 14:10 02/24/19 16:00 02/24/19 16:20 02/24/19 21:45 Sodium Level 155 MMOL/L (136-145) Potassium Level 3.1 MMOL/L (3.5-5.1) Chloride Level 122 MMOL/L (98-107) Carbon Dioxide Level 22 MMOL/L (21-32) Anion Gap 11 mmol/L (5-15) Blood Urea Nitrogen 73 mg/dL (7-18) Creatinine 2.2 MG/DL (0.55-1.30) Estimat Glomerular Filtration Rate mL/min (>60) Glucose Level 417 MG/DL (74-106) Lactic Acid Level 3.30 mmol/L (0.4-2.0) 2.70 mmol/L (0.66-2.22) 2.40 mmol/L (0.4-2.0) Calcium Level 8.0 MG/DL (8.5-10.1) Urine Color Pale yellow Urine Appearance Slightly cloudy Urine pH 6 (4.5-8.0) Urine Specific [place] 1.010 (1.005-1.035) Urine Protein 3+ (NEGATIVE) Urine Glucose (UA) 4+ (NEGATIVE) Urine Ketones Negative (NEGATIVE) Urine Blood 4+ (NEGATIVE) Urine Nitrite Negative (NEGATIVE) Urine Bilirubin Negative (NEGATIVE) Urine Urobilinogen Normal MG/DL (0.0-1.0) Urine Leukocyte Esterase 2+ (NEGATIVE) Urine RBC 15-20 /HPF (0 - 2) Urine WBC 10-15 /HPF (0 - 2) Urine Squamous Epithelial Cells Few /LPF (NONE/OCC) Urine Bacteria Moderate /HPF (NONE) Test 02/24/19 23:45 02/25/19 04:20 02/25/19 06:15 02/25/19 08:00 Lactic Acid Level 2.30 mmol/L (0.66-2.22) 2.40 mmol/L (0.4-2.0) 3.00 mmol/L (0.66-2.22) White Blood Count 24.2 K/UL (4.8-10.8) Red Blood Count 3.04 M/UL (4.20-5.40) Hemoglobin 9.8 G/DL (12.0-16.0) Hematocrit 32.3 % (37.0-47.0) Mean Corpuscular Volume 107 FL (80-99) Mean Corpuscular Hemoglobin 32.3 PG (27.0-31.0) Mean Corpuscular Hemoglobin Concent 30.3 G/DL (32.0-36.0) Red Cell Distribution Width 16.3 % (11.6-14.8) Platelet Count 93 K/UL (150-450) Mean Platelet Volume 11.5 FL (6.5-10.1) Neutrophils (%) (Auto) % (45.0-75.0) Lymphocytes (%) (Auto) % (20.0-45.0) Monocytes (%) (Auto) % (1.0-10.0) Eosinophils (%) (Auto) % (0.0-3.0) Basophils (%) (Auto) % (0.0-2.0) Differential Total Cells Counted 100 Neutrophils % (Manual) 81 % (45-75) Lymphocytes % (Manual) 16 % (20-45) Monocytes % (Manual) 3 % (1-10) Eosinophils % (Manual) 0 % (0-3) Basophils % (Manual) 0 % (0-2) Band Neutrophils 0 % (0-8) Platelet Estimate Decreased Platelet Morphology Normal Anisocytosis 1+ Macrocytosis 1+ Sodium Level 157 MMOL/L (136-145) 158 MMOL/L (136-145) Potassium Level 3.1 MMOL/L (3.5-5.1) 3.4 MMOL/L (3.5-5.1) Chloride Level 125 MMOL/L (98-107) 126 MMOL/L (98-107) Carbon Dioxide Level 22 MMOL/L (21-32) 21 MMOL/L (21-32) Anion Gap 10 mmol/L (5-15) 11 mmol/L (5-15) Blood Urea Nitrogen 56 mg/dL (7-18) 53 mg/dL (7-18) Creatinine 2.0 MG/DL (0.55-1.30) 2.0 MG/DL (0.55-1.30) Estimat Glomerular Filtration Rate mL/min (>60) mL/min (>60) Glucose Level 258 MG/DL (74-106) 321 MG/DL (74-106) Calcium Level 7.8 MG/DL (8.5-10.1) 7.0 MG/DL (8.5-10.1) Phosphorus Level 2.7 MG/DL (2.5-4.9) Magnesium Level 2.9 MG/DL (1.8-2.4) Random Amikacin Level 24.3 ug/mL Test 02/25/19 09:00 02/25/19 13:00 02/25/19 14:44 02/25/19 18:30 Arterial Blood pH 7.408 (7.350-7.450) 7.371 (7.350-7.450) Arterial Blood Partial Pressure CO2 25.5 mmHg (35.0-45.0) 32.3 mmHg (35.0-45.0) Arterial Blood Partial Pressure O2 113.2 mmHg (75.0-100.0) 88.0 mmHg (75.0-100.0) Arterial Blood HCO3 15.7 mmol/L (22.0-26.0) 18.3 mmol/L (22.0-26.0) Arterial Blood Oxygen Saturation 97.9 % (95-100) 96.7 % (95-100) Arterial Blood Base Excess -7.7 (-2-2) -6.1 (-2-2) Cam Test Positive Positive Lactic Acid Level 3.10 mmol/L (0.4-2.0) 2.30 mmol/L (0.4-2.0) Sodium Level 154 MMOL/L (136-145) Potassium Level 2.9 MMOL/L (3.5-5.1) Chloride Level 120 MMOL/L (98-107) Carbon Dioxide Level 21 MMOL/L (21-32) Anion Gap 13 mmol/L (5-15) Blood Urea Nitrogen 40 mg/dL (7-18) Creatinine 1.8 MG/DL (0.55-1.30) Estimat Glomerular Filtration Rate mL/min (>60) Glucose Level 162 MG/DL (74-106) Calcium Level 7.4 MG/DL (8.5-10.1) Test 02/26/19 04:00 White Blood Count 23.1 K/UL (4.8-10.8) Red Blood Count 2.63 M/UL (4.20-5.40) Hemoglobin 8.4 G/DL (12.0-16.0) Hematocrit 27.3 % (37.0-47.0) Mean Corpuscular Volume 104 FL (80-99) Mean Corpuscular Hemoglobin 32.1 PG (27.0-31.0) Mean Corpuscular Hemoglobin Concent 30.9 G/DL (32.0-36.0) Red Cell Distribution Width 16.1 % (11.6-14.8) Platelet Count 79 K/UL (150-450) Mean Platelet Volume 12.1 FL (6.5-10.1) Neutrophils (%) (Auto) % (45.0-75.0) Lymphocytes (%) (Auto) % (20.0-45.0) Monocytes (%) (Auto) % (1.0-10.0) Eosinophils (%) (Auto) % (0.0-3.0) Basophils (%) (Auto) % (0.0-2.0) Differential Total Cells Counted 100 Neutrophils % (Manual) 92 % (45-75) Lymphocytes % (Manual) 6 % (20-45) Monocytes % (Manual) 1 % (1-10) Eosinophils % (Manual) 0 % (0-3) Basophils % (Manual) 1 % (0-2) Band Neutrophils 0 % (0-8) Nucleated Red Blood Cells 1 /100 WBC Platelet Estimate Decreased Platelet Morphology Normal Hypochromasia 2+ Anisocytosis 1+ Macrocytosis 1+ Sodium Level 147 MMOL/L (136-145) Potassium Level 3.8 MMOL/L (3.5-5.1) Chloride Level 119 MMOL/L (98-107) Carbon Dioxide Level 17 MMOL/L (21-32) Anion Gap 11 mmol/L (5-15) Blood Urea Nitrogen 37 mg/dL (7-18) Creatinine 1.8 MG/DL (0.55-1.30) Estimat Glomerular Filtration Rate mL/min (>60) Glucose Level 184 MG/DL (74-106) Calcium Level 8.1 MG/DL (8.5-10.1) Random Vancomycin Level 12.1 ug/mL Objective: WDWN on vent ETT in place clear breath sounds bilaterally without rhonchi or wheeze [id number] without MRG NABS nontender no HSM no CCE sedated Micro: Microbiology Date/Time Source Procedure Growth Status 02/24/19 07:40 Sputum Induced Gram Stain - Final Resulted 02/24/19 07:40 Sputum Culture - Preliminary Gram Negative Jefry Resulted 02/24/19 16:00 Indwelling Cath Urine Culture - Preliminary NO GROWTH AFTER 24 HOURS Resulted Accucheck: 201 Agustin Nelson MD Feb 26, 2019 08:52
--- NOTE | 2019-02-26 09:04 | General Progress Note ---
Assessment/Plan Status: stable Assessment/Plan: (1) Feeding by G-tube (2) Diabetes (3) Anemia (4) Sepsis (5) Respiratory failure GTF fu H&H ppi daily respiratory care ABX Subjective ROS Limited/Unobtainable: No Allergies: Coded Allergies: SULFA (SULFONAMIDE ANTIBIOTICS) (Unverified Allergy, Unknown, 09/30/18) COPIED FROM UNCODED Uncoded Allergies: SULFA (Allergy, Unknown, 11/20/18) Objective Last 24 Hour Vital Signs Date Time Temp Pulse Resp B/P (MAP) Pulse Ox O2 Delivery O2 Flow Rate FiO2 02/26/19 08:30 98.4 97 26 92/44 (60) 100 02/26/19 08:00 30 02/26/19 08:00 97 02/26/19 08:00 100 25 91/45 (60) 100 02/26/19 08:00 Mechanical Ventilator 02/26/19 07:30 98.5 98 23 91/51 (64) 100 02/26/19 07:23 Mechanical Ventilator 30 02/26/19 07:23 Mechanical Ventilator 30 02/26/19 07:23 105 26 30 720 02/26/19 07:15 102 20 91/41 (58) 100 02/26/19 07:00 100 20 82/41 (55) 100 02/26/19 07:00 91/41 02/26/19 06:30 109 19 92/53 (66) 100 02/26/19 06:00 88/49 02/26/19 06:00 98.7 104 19 89/44 (59) 100 02/26/19 05:30 103 19 90/43 (59) 100 02/26/19 05:14 107 34 30 30 02/26/19 05:00 93/40 02/26/19 05:00 108 26 96/44 (61) 100 02/26/19 04:30 116 26 99/68 (78) 100 02/26/19 04:00 114 02/26/19 04:00 99.5 114 27 93/34 (53) 100 02/26/19 04:00 30 02/26/19 04:00 Mechanical Ventilator 02/26/19 04:00 99/68 02/26/19 04:00 112 02/26/19 03:40 114 32 100 Mechanical Ventilator 30 02/26/19 03:30 113 26 106/42 (63) 98 02/26/19 03:29 112 34 100 Mechanical Ventilator 30 02/26/19 03:29 112 34 30 30 02/26/19 03:00 105/42 02/26/19 03:00 113 25 112/53 (72) 100 02/26/19 02:49 112/53 02/26/19 02:30 107 25 93/34 (53) 97 02/26/19 02:00 88/54 02/26/19 02:00 107 26 112/53 (72) 100 02/26/19 01:30 99 25 76/31 (46) 100 02/26/19 01:26 102 34 30 30 02/26/19 01:00 98 19 93/34 (53) 100 02/26/19 01:00 93/49 02/26/19 00:30 101 18 88/51 (63) 100 02/26/19 00:00 Mechanical Ventilator 02/26/19 00:00 95 02/26/19 00:00 89/53 02/26/19 00:00 98.6 103 25 89/53 (65) 97 02/26/19 00:00 30 02/25/19 23:30 103 25 96/57 (70) 96 02/25/19 23:00 102/60 02/25/19 23:00 102 25 102/60 (74) 98 02/25/19 22:48 92 24 100 Mechanical Ventilator 30 02/25/19 22:38 99 34 100 Mechanical Ventilator 30 02/25/19 22:35 99 34 30 30 02/25/19 22:30 99 19 109/52 (71) 98 02/25/19 22:00 97.8 94 19 93/57 (69) 100 02/25/19 22:00 109/52 02/25/19 21:30 86 22 104/54 (71) 99 02/25/19 21:13 83 27 30 30 02/25/19 21:00 84 18 117/62 (80) 99 02/25/19 21:00 117/62 02/25/19 20:30 89 18 86/34 (51) 100 02/25/19 20:13 112/51 02/25/19 20:00 84 02/25/19 20:00 30 02/25/19 20:00 100/36 02/25/19 20:00 86 22 119/49 (72) 100 02/25/19 20:00 Mechanical Ventilator 02/25/19 19:30 100.0 92 22 101/45 (63) 100 02/25/19 19:18 90 12 100 Mechanical Ventilator 30 02/25/19 19:08 93 26 100 Mechanical Ventilator 30 02/25/19 19:05 93 26 30 30 02/25/19 19:00 93 19 109/53 (71) 100 02/25/19 19:00 99/39 02/25/19 18:30 95 25 88/32 (50) 100 02/25/19 18:00 95 25 97/39 (58) 100 02/25/19 17:43 100.3 02/25/19 17:30 102 25 105/46 (65) 100 02/25/19 17:25 101 28 30 02/25/19 17:00 105 25 103/60 (74) 100 02/25/19 16:54 98/55 02/25/19 16:30 103 21 98/55 (69) 100 02/25/19 16:00 99 02/25/19 16:00 107 16 92/39 (56) 100 02/25/19 16:00 Mechanical Ventilator 02/25/19 15:30 98.9 105 25 122/53 (76) 100 02/25/19 15:30 30 02/25/19 15:24 97 28 100 Mechanical Ventilator 30 02/25/19 15:22 98 30 30 02/25/19 15:14 98 30 100 Mechanical Ventilator 30 02/25/19 15:00 99 25 126/53 (77) 100 02/25/19 14:30 97 25 137/70 (92) 100 02/25/19 14:00 94 20 114/55 (74) 95 02/25/19 14:00 28 Mechanical Ventilator 15.0 30 02/25/19 13:30 94 25 118/57 (77) 100 02/25/19 13:02 95 28 30 30 02/25/19 13:00 91 25 118/47 (70) 100 02/25/19 12:30 91 25 118/47 (70) 100 02/25/19 12:00 101 02/25/19 12:00 94 02/25/19 12:00 100.1 91 29 108/44 (65) 100 02/25/19 12:00 Mechanical Ventilator 02/25/19 11:30 92 26 102/48 (66) 100 02/25/19 11:00 108/44 02/25/19 11:00 92 26 104/49 (67) 100 02/25/19 10:50 96 29 30 30 02/25/19 10:50 Mechanical Ventilator 30 02/25/19 10:50 Mechanical Ventilator 30 02/25/19 10:30 93 25 95/78 (84) 100 02/25/19 10:00 113/48 02/25/19 10:00 92 27 113/48 (69) 100 02/25/19 09:32 100 02/25/19 09:30 93 30 104/43 (63) 100 02/25/19 09:20 95 32 30 30 02/25/19 09:15 93 25 118/39 (65) 100 Intake and Output 02/25/19 02/26/19 19:00 07:00 Intake Total 1593.75 ml 2293.75 ml Output Total 1980 ml 1900 ml Balance -386.25 ml 393.75 ml Free Water 30 ml 40 ml IV Total 1533.75 ml 1713.75 ml Tube Feeding 30 ml 540 ml Output Urine Total 1980 ml 1900 ml Laboratory Tests 02/25/19 13:00: Lactic Acid Level 3.10H 02/25/19 14:44: Arterial Blood pH 7.371, Arterial Blood Partial Pressure CO2 32.3L, Arterial Blood Partial Pressure O2 88.0, Arterial Blood HCO3 18.3L, Arterial Blood Oxygen Saturation 96.7, Arterial Blood Base Excess -6.1L, Cam Test Positive 02/25/19 18:30: Lactic Acid Level 2.30H, Sodium Level 154H, Potassium Level 2.9L, Chloride Level 120H, Carbon Dioxide Level 21, Anion Gap 13, Blood Urea Nitrogen 40H, Creatinine 1.8H, Estimat Glomerular Filtration Rate , Glucose Level 162#H, Calcium Level 7.4L 02/26/19 04:00: Sodium Level 147H, Potassium Level 3.8, Chloride Level 119H, Carbon Dioxide Level 17L, Anion Gap 11, Blood Urea Nitrogen 37H, Creatinine 1.8H, Estimat Glomerular Filtration Rate , Glucose Level 184H, Calcium Level 8.1L, White Blood Count 23.1*H, Red Blood Count 2.63L, Hemoglobin 8.4L, Hematocrit 27.3L, Mean Corpuscular Volume 104H, Mean Corpuscular Hemoglobin 32.1H, Mean Corpuscular Hemoglobin Concent 30.9L, Red Cell Distribution Width 16.1H, Platelet Count 79L, Mean Platelet Volume 12.1H, Neutrophils (%) (Auto) , Lymphocytes (%) (Auto) , Monocytes (%) (Auto) , Eosinophils (%) (Auto) , Basophils (%) (Auto) , Differential Total Cells Counted 100, Neutrophils % ( Manual) 92H, Lymphocytes % (Manual) 6L, Monocytes % (Manual) 1, Eosinophils % ( Manual) 0, Basophils % (Manual) 1, Band Neutrophils 0, Nucleated Red Blood Cells 1, Platelet Estimate DecreasedL, Platelet Morphology Normal, Hypochromasia 2+, Anisocytosis 1+, Macrocytosis 1+, Random Vancomycin Level 12.1 Height (Feet): 5 Height (Inches): 8.00 Weight (Pounds): 172 General Appearance: lethargic EENT: normal ENT inspection Neck: supple Cardiovascular: normal rate Respiratory/Chest: decreased breath sounds Abdomen: normal bowel sounds, non tender, soft Extremities: non-tender Ramos Rutledge MD Feb 26, 2019 09:04
--- NOTE | 2019-02-26 09:10 | NUR ---
NURSE NOTES: Patient seen by Dr. Nelson and Dr. Rutledge. Updated MDs on pt's condition. no extubation today per Dr. Nelson.
--- NOTE | 2019-02-26 09:15 | NUR ---
NURSE NOTES: Patient back on AC mode. No acute distress noted.
--- NOTE | 2019-02-26 10:00 | NUR ---
NURSE NOTES: Patient was turned and repositioned. Patient kept clean and dry. HOB kept elevated. Addendum: 02/26/19 at 1044 by BLANCO EVANS RN Patient on SCDs on bilateral lower extremities.
--- NOTE | 2019-02-26 10:15 | NUR ---
NURSE NOTES: Patient noted with BP 69/41. Restarted Levophed at 2mcg/min via right IJ TLC. Will continue to monitor.
--- NOTE | 2019-02-26 11:20 | NUR ---
NURSE NOTES: Patient on Levophed at 4mcg/min. BP 101/44, SR in 90s noted on the monitor.
--- NOTE | 2019-02-26 11:37 | Cardiology Progress Note ---
Assessment/Plan Status: stable Assessment/Plan Assessment/Plan Status: stable Assessment/Plan: REASON FOR CONSULTATION: 1. Acute kidney injury. 2. Volume depletion. 3. Hypernatremia. 4. Hypertension. 5. Diabetes. 6. Dementia. 7. Hyperglycemia. 8. Respiratory failure. 9. OBESITY. 10. Gastrostomy feeding. 11 Hypophosphatemia. 12. Possible sepsis. 13. Pyuria possibly urinary tract infection. 14. Proteinuria. Low albumin likely chronic malnutrition Plan: Hypotension -levophed -IV fluids -Echocardiogram normal LV function Respiratory failure -intubated -serial CXR and ABG/VBG -Breathing treatments, pulmonary toilet Sepsis -broad spectrum Abx NAOMY/hypernatremia -per nephrology Hypertension/hyperlipidemia -hold medication Diabetes/hyperglycemia -insulin gtt Critical care 35 minutes Subjective Cardiovascular: Reports: no symptoms Respiratory: Reports: no symptoms Gastrointestinal/Abdominal: Reports: no symptoms Genitourinary: Reports: no symptoms Subjective Remains intubated and on low dose pressors, BP 100s, on AC not responsive, tolerating Tube feeds but KUB with impaction, WBC remains elevated Objective Last 24 Hour Vital Signs Date Time Temp Pulse Resp B/P (MAP) Pulse Ox O2 Delivery O2 Flow Rate FiO2 02/26/19 11:15 96 21 101/44 (63) 100 02/26/19 11:15 101/44 02/26/19 11:00 90 26 108/50 (69) 100 02/26/19 11:00 108/50 02/26/19 10:45 97 24 97/44 (61) 100 02/26/19 10:45 97/44 02/26/19 10:30 92/50 02/26/19 10:30 101 24 92/50 (64) 100 02/26/19 10:18 97 23 111/43 (65) 100 02/26/19 10:15 69/41 02/26/19 10:15 97 25 69/41 (50) 100 02/26/19 10:00 95 26 85/40 (55) 100 02/26/19 09:05 100 02/26/19 09:04 94 28 30 720 02/26/19 09:00 95 20 88/47 (61) 100 02/26/19 08:30 98.4 97 26 92/44 (60) 100 02/26/19 08:00 30 02/26/19 08:00 97 02/26/19 08:00 100 25 91/45 (60) 100 02/26/19 08:00 Mechanical Ventilator 02/26/19 07:30 98.5 98 23 91/51 (64) 100 02/26/19 07:23 Mechanical Ventilator 30 02/26/19 07:23 Mechanical Ventilator 30 02/26/19 07:23 105 26 30 720 02/26/19 07:15 102 20 91/41 (58) 100 02/26/19 07:00 100 20 82/41 (55) 100 02/26/19 07:00 91/41 02/26/19 06:30 109 19 92/53 (66) 100 02/26/19 06:00 88/49 02/26/19 06:00 98.7 104 19 89/44 (59) 100 02/26/19 05:30 103 19 90/43 (59) 100 02/26/19 05:14 107 34 30 30 02/26/19 05:00 93/40 02/26/19 05:00 108 26 96/44 (61) 100 02/26/19 04:30 116 26 99/68 (78) 100 02/26/19 04:00 114 02/26/19 04:00 99.5 114 27 93/34 (53) 100 02/26/19 04:00 30 02/26/19 04:00 Mechanical Ventilator 02/26/19 04:00 99/68 02/26/19 04:00 112 02/26/19 03:40 114 32 100 Mechanical Ventilator 30 02/26/19 03:30 113 26 106/42 (63) 98 02/26/19 03:29 112 34 100 Mechanical Ventilator 30 02/26/19 03:29 112 34 30 30 02/26/19 03:00 105/42 02/26/19 03:00 113 25 112/53 (72) 100 02/26/19 02:49 112/53 02/26/19 02:30 107 25 93/34 (53) 97 02/26/19 02:00 88/54 02/26/19 02:00 107 26 112/53 (72) 100 02/26/19 01:30 99 25 76/31 (46) 100 02/26/19 01:26 102 34 30 30 02/26/19 01:00 98 19 93/34 (53) 100 02/26/19 01:00 93/49 02/26/19 00:30 101 18 88/51 (63) 100 02/26/19 00:00 Mechanical Ventilator 02/26/19 00:00 95 02/26/19 00:00 89/53 02/26/19 00:00 98.6 103 25 89/53 (65) 97 02/26/19 00:00 30 02/25/19 23:30 103 25 96/57 (70) 96 02/25/19 23:00 102/60 02/25/19 23:00 102 25 102/60 (74) 98 02/25/19 22:48 92 24 100 Mechanical Ventilator 30 02/25/19 22:38 99 34 100 Mechanical Ventilator 30 02/25/19 22:35 99 34 30 30 02/25/19 22:30 99 19 109/52 (71) 98 02/25/19 22:00 97.8 94 19 93/57 (69) 100 02/25/19 22:00 109/52 02/25/19 21:30 86 22 104/54 (71) 99 02/25/19 21:13 83 27 30 30 02/25/19 21:00 84 18 117/62 (80) 99 02/25/19 21:00 117/62 02/25/19 20:30 89 18 86/34 (51) 100 02/25/19 20:13 112/51 02/25/19 20:00 84 02/25/19 20:00 30 02/25/19 20:00 100/36 02/25/19 20:00 86 22 119/49 (72) 100 02/25/19 20:00 Mechanical Ventilator 02/25/19 19:30 100.0 92 22 101/45 (63) 100 02/25/19 19:18 90 12 100 Mechanical Ventilator 30 02/25/19 19:08 93 26 100 Mechanical Ventilator 30 02/25/19 19:05 93 26 30 30 02/25/19 19:00 93 19 109/53 (71) 100 02/25/19 19:00 99/39 02/25/19 18:30 95 25 88/32 (50) 100 02/25/19 18:00 95 25 97/39 (58) 100 02/25/19 17:43 100.3 02/25/19 17:30 102 25 105/46 (65) 100 02/25/19 17:25 101 28 30 02/25/19 17:00 105 25 103/60 (74) 100 02/25/19 16:54 98/55 02/25/19 16:30 103 21 98/55 (69) 100 02/25/19 16:00 99 02/25/19 16:00 107 16 92/39 (56) 100 02/25/19 16:00 Mechanical Ventilator 02/25/19 15:30 98.9 105 25 122/53 (76) 100 02/25/19 15:30 30 02/25/19 15:24 97 28 100 Mechanical Ventilator 30 02/25/19 15:22 98 30 30 02/25/19 15:14 98 30 100 Mechanical Ventilator 30 02/25/19 15:00 99 25 126/53 (77) 100 02/25/19 14:30 97 25 137/70 (92) 100 02/25/19 14:00 94 20 114/55 (74) 95 02/25/19 14:00 28 Mechanical Ventilator 15.0 30 02/25/19 13:30 94 25 118/57 (77) 100 02/25/19 13:02 95 28 30 30 02/25/19 13:00 91 25 118/47 (70) 100 02/25/19 12:30 91 25 118/47 (70) 100 02/25/19 12:00 101 02/25/19 12:00 94 02/25/19 12:00 100.1 91 29 108/44 (65) 100 02/25/19 12:00 Mechanical Ventilator General Appearance: no apparent distress, on vent EENT: PERRL/EOMI, normal ENT inspection, TMs normal, pharynx normal Neck: non-tender, normal alignment, supple, normal inspection, no JVD Rhythm: NSR Cardiovascular: normal peripheral pulses, normal rate Respiratory/Chest: chest wall non-tender, lungs clear Abdomen: normal bowel sounds, non tender, soft, no organomegaly, no mass Extremities: normal range of motion, non-tender, normal inspection, no calf tenderness, no swelling Neurologic: issuer II-XII grossly normal, no motor/sensory deficits Intake and Output 02/25/19 02/26/19 19:00 07:00 Intake Total 1593.75 ml 2293.75 ml Output Total 1980 ml 1900 ml Balance -386.25 ml 393.75 ml Free Water 30 ml 40 ml IV Total 1533.75 ml 1713.75 ml Tube Feeding 30 ml 540 ml Output Urine Total 1980 ml 1900 ml Laboratory Tests Test 02/25/19 13:00 02/25/19 14:44 02/25/19 18:30 02/26/19 04:00 Lactic Acid Level 3.10 mmol/L (0.4-2.0) H 2.30 mmol/L (0.4-2.0) H Arterial Blood pH 7.371 (7.350-7.450) Arterial Blood Partial Pressure CO2 32.3 mmHg (35.0-45.0) L Arterial Blood Partial Pressure O2 88.0 mmHg (75.0-100.0) Arterial Blood HCO3 18.3 mmol/L (22.0-26.0) L Arterial Blood Oxygen Saturation 96.7 % (95-100) Arterial Blood Base Excess -6.1 (-2-2) L Cam Test Positive Sodium Level 154 MMOL/L (136-145) H 147 MMOL/L (136-145) H Potassium Level 2.9 MMOL/L (3.5-5.1) L 3.8 MMOL/L (3.5-5.1) Chloride Level 120 MMOL/L (98-107) H 119 MMOL/L (98-107) H Carbon Dioxide Level 21 MMOL/L (21-32) 17 MMOL/L (21-32) L Anion Gap 13 mmol/L (5-15) 11 mmol/L (5-15) Blood Urea Nitrogen 40 mg/dL (7-18) H 37 mg/dL (7-18) H Creatinine 1.8 MG/DL (0.55-1.30) H 1.8 MG/DL (0.55-1.30) H Estimat Glomerular Filtration Rate mL/min (>60) mL/min (>60) Glucose Level 162 MG/DL (74-106) #H 184 MG/DL (74-106) H Calcium Level 7.4 MG/DL (8.5-10.1) L 8.1 MG/DL (8.5-10.1) L White Blood Count 23.1 K/UL (4.8-10.8) *H Red Blood Count 2.63 M/UL (4.20-5.40) L Hemoglobin 8.4 G/DL (12.0-16.0) L Hematocrit 27.3 % (37.0-47.0) L Mean Corpuscular Volume 104 FL (80-99) H Mean Corpuscular Hemoglobin 32.1 PG (27.0-31.0) H Mean Corpuscular Hemoglobin Concent 30.9 G/DL (32.0-36.0) L Red Cell Distribution Width 16.1 % (11.6-14.8) H Platelet Count 79 K/UL (150-450) L Mean Platelet Volume 12.1 FL (6.5-10.1) H Neutrophils (%) (Auto) % (45.0-75.0) Lymphocytes (%) (Auto) % (20.0-45.0) Monocytes (%) (Auto) % (1.0-10.0) Eosinophils (%) (Auto) % (0.0-3.0) Basophils (%) (Auto) % (0.0-2.0) Differential Total Cells Counted 100 Neutrophils % (Manual) 92 % (45-75) H Lymphocytes % (Manual) 6 % (20-45) L Monocytes % (Manual) 1 % (1-10) Eosinophils % (Manual) 0 % (0-3) Basophils % (Manual) 1 % (0-2) Band Neutrophils 0 % (0-8) Nucleated Red Blood Cells 1 /100 WBC Platelet Estimate Decreased L Platelet Morphology Normal Hypochromasia 2+ Anisocytosis 1+ Macrocytosis 1+ Random Vancomycin Level 12.1 ug/mL Microbiology Date/Time Source Procedure Growth Status 02/24/19 07:40 Sputum Induced Gram Stain - Final Resulted 02/24/19 07:40 Sputum Culture - Preliminary Gram Negative Jefry Resulted 02/24/19 16:00 Indwelling Cath Urine Culture - Preliminary NO GROWTH AFTER 24 HOURS Resulted Robert Peterson MD Feb 26, 2019 11:37
[2019-02-26] MEDS ORDERED: Fleet's Mineral Oil Enema RECTAL ONE (12:00)
--- NOTE | 2019-02-26 12:00 | NUR ---
NURSE NOTES: Patient is asleep, easily arousable to light touch. No acute distress noted. On Levophed at 4mcg/min. SR 90s noted on the monitor.
--- NOTE | 2019-02-26 12:28 | NUR ---
MAT INSPECTORULTRASONIC TESTER SI: RESP FAILURE ETT/VENT SUPPORT T. 98.4 HR 105 RR 26 B/P 91/51 AC 12 TV 500 FIO2 400 PEEP 5 WBC 23.1 NA 147 BUN 37 CR 1.8 IS: IVF D5@ 75ML/HR LEVOPHED GTT MEROPENEM IV DOXYCYCLINE IV ICU STATUS
--- NOTE | 2019-02-26 12:30 | NUR ---
NURSE NOTES: Patient had no BM yet. Mineral oil enema x1 given to the patient.
--- NOTE | 2019-02-26 12:35 | NUR ---
NURSE NOTES: Dr. García at bedside. updated MD on patient's condition. Okay to change accucheck and insulin sliding scale to q6hrs.
--- NOTE | 2019-02-26 12:37 | Nephrology Progress Note ---
Assessment/Plan Status: stable Assessment/Plan: A/P 1) Septic Shock- Elevated WBC. PNA - Abx mgmt per ID - weaning off Levophed 2) Resp FL- mgmt per Dr Ashton 3) Hypernatremia- improved 171---164---157---147 - Continue D5W 4) NAOMY- Cr and BUN much improved on daily basis 5) E- ABN- replace K+/Mg Phos as needed 6) DVT prophylaxis- with SCDs Subjective Date patient seen: Feb 26, 2019 Time patient seen: 12:36 ROS Limited/Unobtainable: Yes Allergies: Coded Allergies: SULFA (SULFONAMIDE ANTIBIOTICS) (Unverified Allergy, Unknown, 09/30/18) COPIED FROM UNCODED Uncoded Allergies: SULFA (Allergy, Unknown, 11/20/18) Subjective Patient remains intubated on ventilator Objective Last 24 Hour Vital Signs Date Time Temp Pulse Resp B/P (MAP) Pulse Ox O2 Delivery O2 Flow Rate FiO2 02/26/19 12:30 97 21 92/43 (59) 100 02/26/19 12:00 95 02/26/19 12:00 98.4 97 20 96/42 (60) 100 02/26/19 12:00 Mechanical Ventilator 02/26/19 12:00 30 02/26/19 11:40 99 28 100 Mechanical Ventilator 30 02/26/19 11:30 95 28 100 Mechanical Ventilator 30 02/26/19 11:30 98 24 97/44 (61) 98 02/26/19 11:30 97/44 02/26/19 11:24 93 34 30 02/26/19 11:15 96 21 101/44 (63) 100 02/26/19 11:15 101/44 02/26/19 11:00 90 26 108/50 (69) 100 02/26/19 11:00 108/50 02/26/19 10:45 97 24 97/44 (61) 100 02/26/19 10:45 97/44 02/26/19 10:30 92/50 02/26/19 10:30 101 24 92/50 (64) 100 02/26/19 10:18 97 23 111/43 (65) 100 02/26/19 10:15 69/41 02/26/19 10:15 97 25 69/41 (50) 100 02/26/19 10:00 95 26 85/40 (55) 100 02/26/19 09:15 30 02/26/19 09:05 100 02/26/19 09:04 94 28 30 720 02/26/19 09:00 95 20 88/47 (61) 100 02/26/19 08:30 98.4 97 26 92/44 (60) 100 02/26/19 08:00 30 02/26/19 08:00 97 02/26/19 08:00 100 25 91/45 (60) 100 02/26/19 08:00 Mechanical Ventilator 02/26/19 07:30 98.5 98 23 91/51 (64) 100 02/26/19 07:23 Mechanical Ventilator 30 02/26/19 07:23 Mechanical Ventilator 30 02/26/19 07:23 105 26 30 720 02/26/19 07:20 30 02/26/19 07:15 102 20 91/41 (58) 100 02/26/19 07:00 100 20 82/41 (55) 100 02/26/19 07:00 91/41 02/26/19 06:30 109 19 92/53 (66) 100 02/26/19 06:00 88/49 02/26/19 06:00 98.7 104 19 89/44 (59) 100 02/26/19 05:30 103 19 90/43 (59) 100 02/26/19 05:14 107 34 30 30 02/26/19 05:00 93/40 02/26/19 05:00 108 26 96/44 (61) 100 02/26/19 04:30 116 26 99/68 (78) 100 02/26/19 04:00 114 02/26/19 04:00 99.5 114 27 93/34 (53) 100 02/26/19 04:00 30 02/26/19 04:00 Mechanical Ventilator 02/26/19 04:00 99/68 02/26/19 04:00 112 02/26/19 03:40 114 32 100 Mechanical Ventilator 30 02/26/19 03:30 113 26 106/42 (63) 98 02/26/19 03:29 112 34 100 Mechanical Ventilator 30 02/26/19 03:29 112 34 30 30 02/26/19 03:00 105/42 8/6/19 03:00 113 25 112/53 (72) 100 02/26/19 02:49 112/53 02/26/19 02:30 107 25 93/34 (53) 97 02/26/19 02:00 88/54 02/26/19 02:00 107 26 112/53 (72) 100 02/26/19 01:30 99 25 76/31 (46) 100 02/26/19 01:26 102 34 30 30 02/26/19 01:00 98 19 93/34 (53) 100 02/26/19 01:00 93/49 02/26/19 00:30 101 18 88/51 (63) 100 02/26/19 00:00 Mechanical Ventilator 02/26/19 00:00 95 02/26/19 00:00 89/53 02/26/19 00:00 98.6 103 25 89/53 (65) 97 02/26/19 00:00 30 02/25/19 23:30 103 25 96/57 (70) 96 02/25/19 23:00 102/60 02/25/19 23:00 102 25 102/60 (74) 98 02/25/19 22:48 92 24 100 Mechanical Ventilator 30 02/25/19 22:38 99 34 100 Mechanical Ventilator 30 02/25/19 22:35 99 34 30 30 02/25/19 22:30 99 19 109/52 (71) 98 02/25/19 22:00 97.8 94 19 93/57 (69) 100 02/25/19 22:00 109/52 02/25/19 21:30 86 22 104/54 (71) 99 02/25/19 21:13 83 27 30 30 02/25/19 21:00 84 18 117/62 (80) 99 02/25/19 21:00 117/62 02/25/19 20:30 89 18 86/34 (51) 100 02/25/19 20:13 112/51 02/25/19 20:00 84 02/25/19 20:00 30 02/25/19 20:00 100/36 02/25/19 20:00 86 22 119/49 (72) 100 02/25/19 20:00 Mechanical Ventilator 02/25/19 19:30 100.0 92 22 101/45 (63) 100 8/5/19 19:18 90 12 100 Mechanical Ventilator 30 02/25/19 19:08 93 26 100 Mechanical Ventilator 30 02/25/19 19:05 93 26 30 30 02/25/19 19:00 93 19 109/53 (71) 100 02/25/19 19:00 99/39 02/25/19 18:30 95 25 88/32 (50) 100 02/25/19 18:00 95 25 97/39 (58) 100 02/25/19 17:43 100.3 02/25/19 17:30 102 25 105/46 (65) 100 02/25/19 17:25 101 28 30 02/25/19 17:00 105 25 103/60 (74) 100 02/25/19 16:54 98/55 02/25/19 16:30 103 21 98/55 (69) 100 02/25/19 16:00 99 02/25/19 16:00 107 16 92/39 (56) 100 02/25/19 16:00 Mechanical Ventilator 02/25/19 15:30 98.9 105 25 122/53 (76) 100 02/25/19 15:30 30 02/25/19 15:24 97 28 100 Mechanical Ventilator 30 02/25/19 15:22 98 30 30 02/25/19 15:14 98 30 100 Mechanical Ventilator 30 02/25/19 15:00 99 25 126/53 (77) 100 02/25/19 14:30 97 25 137/70 (92) 100 02/25/19 14:00 94 20 114/55 (74) 95 02/25/19 14:00 28 Mechanical Ventilator 15.0 30 02/25/19 13:30 94 25 118/57 (77) 100 02/25/19 13:02 95 28 30 30 02/25/19 13:00 91 25 118/47 (70) 100 Intake and Output 02/25/19 02/26/19 18:59 06:59 Intake Total 1476.75 ml 2402.50 ml Output Total 2110 ml 1920 ml Balance -633.25 ml 482.50 ml Free Water 70 ml IV Total 1391.75 ml 1852.50 ml Tube Feeding 85 ml 480 ml Output Urine Total 2110 ml 1920 ml Laboratory Tests 02/25/19 13:00: Lactic Acid Level 3.10H 02/25/19 14:44: Arterial Blood pH 7.371, Arterial Blood Partial Pressure CO2 32.3L, Arterial Blood Partial Pressure O2 88.0, Arterial Blood HCO3 18.3L, Arterial Blood Oxygen Saturation 96.7, Arterial Blood Base Excess -6.1L, Cam Test Positive 02/25/19 18:30: Lactic Acid Level 2.30H, Sodium Level 154H, Potassium Level 2.9L, Chloride Level 120H, Carbon Dioxide Level 21, Anion Gap 13, Blood Urea Nitrogen 40H, Creatinine 1.8H, Estimat Glomerular Filtration Rate , Glucose Level 162#H, Calcium Level 7.4L 02/26/19 04:00: Sodium Level 147H, Potassium Level 3.8, Chloride Level 119H, Carbon Dioxide Level 17L, Anion Gap 11, Blood Urea Nitrogen 37H, Creatinine 1.8H, Estimat Glomerular Filtration Rate , Glucose Level 184H, Calcium Level 8.1L, White Blood Count 23.1*H, Red Blood Count 2.63L, Hemoglobin 8.4L, Hematocrit 27.3L, Mean Corpuscular Volume 104H, Mean Corpuscular Hemoglobin 32.1H, Mean Corpuscular Hemoglobin Concent 30.9L, Red Cell Distribution Width 16.1H, Platelet Count 79L, Mean Platelet Volume 12.1H, Neutrophils (%) (Auto) , Lymphocytes (%) (Auto) , Monocytes (%) (Auto) , Eosinophils (%) (Auto) , Basophils (%) (Auto) , Differential Total Cells Counted 100, Neutrophils % ( Manual) 92H, Lymphocytes % (Manual) 6L, Monocytes % (Manual) 1, Eosinophils % ( Manual) 0, Basophils % (Manual) 1, Band Neutrophils 0, Nucleated Red Blood Cells 1, Platelet Estimate DecreasedL, Platelet Morphology Normal, Hypochromasia 2+, Anisocytosis 1+, Macrocytosis 1+, Random Vancomycin Level 12.1 Height (Feet): 5 Height (Inches): 8.00 Weight (Pounds): 172 General Appearance: no apparent distress EENT: normal ENT inspection Neck: normal alignment, supple Cardiovascular: normal rate, regular rhythm Respiratory/Chest: rhonchi - bilaterally Edema: no edema noted Arm (L), no edema noted Arm (R), no edema noted Leg (L), no edema noted Leg (R), no edema noted Pedal (L), no edema noted Pedal (R), no edema noted Generalized Jakub García MD Feb 26, 2019 12:37
--- NOTE | 2019-02-26 13:06 | NUR ---
*-* INSURANCE *--* ALL CLINICALS AND REVIEWS HAVE BEEN FAXED TO: [facility]: [facility] P:[phone] FAX: [phone] (FAX CLINICALS)
--- NOTE | 2019-02-26 13:15 | NUR ---
NURSE NOTES: Lactic acid drawn and sent down to lab.
--- NOTE | 2019-02-26 13:20 | Infectious Diseases Prog Note ---
Assessment/Plan Assessment/Plan Assessment: Septic Shock- likely 2ry to PNA- r/o UTI, r/o bacteremia -KUB: Fecal impaction distal sigmoid/rectum. -02/25 CXR: Development of lower lobe infiltrates. Correlate clinically for pneumonia -CXR:Endotracheal tube 2.8 cm above the ludwig in good position. Mild cardiomegaly. Mild right upper lobe interstitial prominence. -CT head: No acute intracranial process. Involutional changes with small vessel disease. Moderate ethmoid sinus mucosal thickening and fluid. Small fluid level in the right sphenoid sinus. -u/a wbc 5-10, nit neg, leuk +1; ucx NTD -Bcx NTD -sp cx +4 GNR -2d Echo: no vegetations Acute respiratory failure s/p intubation 02/23 Fever; improving Leukocytosis; increased Lactic acidosis; increased NAOMY on CKD Hypernatremia hx of MRSA bacteremia 11/2018 -TTE no vegetation hx of ESBL E.coli UTI 11/2018 HTN Dm2 CHF COPD dysphagia s/p GT HLD OA advanced Dementia non verbal SNF resident Plan: -D/c empiric IV Vancomycin #4 -Continue empiric Doxycycline #4 -Continue empiric Meropenem (given hx of ESBL) and Amikacin #3 pending cultures -02/24 SP Zosyn #2 -02/23 SP Cefepime x1, Flagyl x1 -f/u cx -Monitor CBC/BMP, temperatures -f/u legionella ag urine -Cdiff if diarrhea -CBC, CMP am Thank you for this consultation. Will continue to follow along with you. Discussed with RN. Subjective Allergies: Coded Allergies: SULFA (SULFONAMIDE ANTIBIOTICS) (Unverified Allergy, Unknown, 09/30/18) COPIED FROM UNCODED Uncoded Allergies: SULFA (Allergy, Unknown, 11/20/18) Subjective Tm 100.3; afebrile >12hrs wbc increased levophed down to 2 Bcx NTD Objective Vital Signs Last 24 Hour Vital Signs Date Time Temp Pulse Resp B/P (MAP) Pulse Ox O2 Delivery O2 Flow Rate FiO2 02/26/19 13:00 129/48 02/26/19 13:00 106 30 129/48 (75) 100 02/26/19 12:30 97 21 92/43 (59) 100 02/26/19 12:00 95 02/26/19 12:00 96/42 02/26/19 12:00 98.4 97 20 96/42 (60) 100 02/26/19 12:00 Mechanical Ventilator 02/26/19 12:00 30 02/26/19 11:40 99 28 100 Mechanical Ventilator 30 02/26/19 11:30 95 28 100 Mechanical Ventilator 30 02/26/19 11:30 98 24 97/44 (61) 98 02/26/19 11:30 97/44 02/26/19 11:24 93 34 30 02/26/19 11:15 96 21 101/44 (63) 100 02/26/19 11:15 101/44 02/26/19 11:00 90 26 108/50 (69) 100 02/26/19 11:00 108/50 02/26/19 10:45 97 24 97/44 (61) 100 02/26/19 10:45 97/44 02/26/19 10:30 92/50 02/26/19 10:30 101 24 92/50 (64) 100 02/26/19 10:18 97 23 111/43 (65) 100 02/26/19 10:15 69/41 02/26/19 10:15 97 25 69/41 (50) 100 02/26/19 10:00 95 26 85/40 (55) 100 02/26/19 09:15 30 02/26/19 09:05 100 02/26/19 09:04 94 28 30 720 02/26/19 09:00 95 20 88/47 (61) 100 02/26/19 08:30 98.4 97 26 92/44 (60) 100 02/26/19 08:00 30 02/26/19 08:00 97 02/26/19 08:00 100 25 91/45 (60) 100 02/26/19 08:00 Mechanical Ventilator 02/26/19 07:30 98.5 98 23 91/51 (64) 100 02/26/19 07:23 Mechanical Ventilator 30 02/26/19 07:23 Mechanical Ventilator 30 02/26/19 07:23 105 26 30 720 02/26/19 07:20 30 02/26/19 07:15 102 20 91/41 (58) 100 02/26/19 07:00 100 20 82/41 (55) 100 02/26/19 07:00 91/41 02/26/19 06:30 109 19 92/53 (66) 100 02/26/19 06:00 88/49 02/26/19 06:00 98.7 104 19 89/44 (59) 100 02/26/19 05:30 103 19 90/43 (59) 100 02/26/19 05:14 107 34 30 30 02/26/19 05:00 93/40 02/26/19 05:00 108 26 96/44 (61) 100 02/26/19 04:30 116 26 99/68 (78) 100 02/26/19 04:00 114 02/26/19 04:00 99.5 114 27 93/34 (53) 100 02/26/19 04:00 30 02/26/19 04:00 Mechanical Ventilator 02/26/19 04:00 99/68 02/26/19 04:00 112 02/26/19 03:40 114 32 100 Mechanical Ventilator 30 02/26/19 03:30 113 26 106/42 (63) 98 02/26/19 03:29 112 34 100 Mechanical Ventilator 30 02/26/19 03:29 112 34 30 30 02/26/19 03:00 105/42 02/26/19 03:00 113 25 112/53 (72) 100 02/26/19 02:49 112/53 02/26/19 02:30 107 25 93/34 (53) 97 02/26/19 02:00 88/54 02/26/19 02:00 107 26 112/53 (72) 100 02/26/19 01:30 99 25 76/31 (46) 100 02/26/19 01:26 102 34 30 30 02/26/19 01:00 98 19 93/34 (53) 100 02/26/19 01:00 93/49 02/26/19 00:30 101 18 88/51 (63) 100 02/26/19 00:00 Mechanical Ventilator 02/26/19 00:00 95 02/26/19 00:00 89/53 02/26/19 00:00 98.6 103 25 89/53 (65) 97 02/26/19 00:00 30 02/25/19 23:30 103 25 96/57 (70) 96 02/25/19 23:00 102/60 02/25/19 23:00 102 25 102/60 (74) 98 02/25/19 22:48 92 24 100 Mechanical Ventilator 30 02/25/19 22:38 99 34 100 Mechanical Ventilator 30 02/25/19 22:35 99 34 30 30 02/25/19 22:30 99 19 109/52 (71) 98 02/25/19 22:00 97.8 94 19 93/57 (69) 100 02/25/19 22:00 109/52 02/25/19 21:30 86 22 104/54 (71) 99 02/25/19 21:13 83 27 30 30 02/25/19 21:00 84 18 117/62 (80) 99 02/25/19 21:00 117/62 02/25/19 20:30 89 18 86/34 (51) 100 02/25/19 20:13 112/51 02/25/19 20:00 84 02/25/19 20:00 30 02/25/19 20:00 100/36 02/25/19 20:00 86 22 119/49 (72) 100 02/25/19 20:00 Mechanical Ventilator 02/25/19 19:30 100.0 92 22 101/45 (63) 100 02/25/19 19:18 90 12 100 Mechanical Ventilator 30 02/25/19 19:08 93 26 100 Mechanical Ventilator 30 02/25/19 19:05 93 26 30 30 02/25/19 19:00 93 19 109/53 (71) 100 02/25/19 19:00 99/39 02/25/19 18:30 95 25 88/32 (50) 100 02/25/19 18:00 95 25 97/39 (58) 100 02/25/19 17:43 100.3 02/25/19 17:30 102 25 105/46 (65) 100 02/25/19 17:25 101 28 30 02/25/19 17:00 105 25 103/60 (74) 100 02/25/19 16:54 98/55 02/25/19 16:30 103 21 98/55 (69) 100 02/25/19 16:00 99 02/25/19 16:00 107 16 92/39 (56) 100 02/25/19 16:00 Mechanical Ventilator 02/25/19 15:30 98.9 105 25 122/53 (76) 100 02/25/19 15:30 30 02/25/19 15:24 97 28 100 Mechanical Ventilator 30 02/25/19 15:22 98 30 30 02/25/19 15:14 98 30 100 Mechanical Ventilator 30 02/25/19 15:00 99 25 126/53 (77) 100 02/25/19 14:30 97 25 137/70 (92) 100 02/25/19 14:00 94 20 114/55 (74) 95 02/25/19 14:00 28 Mechanical Ventilator 15.0 30 02/25/19 13:30 94 25 118/57 (77) 100 Height (Feet): 5 Height (Inches): 8.00 Weight (Pounds): 172 Objective General Appearance: lethargic, moderate distress Lines, tubes and drains: peripheral, central line, gtube HEENT: normocephalic, atraumatic, anicteric, mucous membranes moist, PERRL, EOMI, pharynx normal, supple, no JVD Neck: non-tender, normal alignment, supple, normal inspection Respiratory/Chest: accessory muscle use, crackles/rales, rhonchi - bilaterally , rhonchi - left Cardiovascular/Chest: normal peripheral pulses, regular rhythm, tachycardia Abdomen: normal bowel sounds, non tender, soft, no organomegaly, no mass Extremities: normal range of motion, non-tender, normal inspection, no calf tenderness, normal capillary refill, non-pitting Skin Exam: normal pigmentation, warm/dry, cyanotic Neurologic: sensory deficit, unresponsiveness Microbiology Date/Time Source Procedure Growth Status 02/24/19 07:40 Sputum Induced Gram Stain - Final Resulted 02/24/19 07:40 Sputum Culture - Preliminary Gram Negative Jefry Resulted 02/24/19 16:00 Indwelling Cath Urine Culture - Preliminary NO GROWTH AFTER 24 HOURS Resulted Laboratory Tests Test 02/25/19 14:44 02/25/19 18:30 02/26/19 04:00 Arterial Blood pH 7.371 (7.350-7.450) Arterial Blood Partial Pressure CO2 32.3 mmHg (35.0-45.0) L Arterial Blood Partial Pressure O2 88.0 mmHg (75.0-100.0) Arterial Blood HCO3 18.3 mmol/L (22.0-26.0) L Arterial Blood Oxygen Saturation 96.7 % (95-100) Arterial Blood Base Excess -6.1 (-2-2) L Cam Test Positive Sodium Level 154 MMOL/L (136-145) H 147 MMOL/L (136-145) H Potassium Level 2.9 MMOL/L (3.5-5.1) L 3.8 MMOL/L (3.5-5.1) Chloride Level 120 MMOL/L (98-107) H 119 MMOL/L (98-107) H Carbon Dioxide Level 21 MMOL/L (21-32) 17 MMOL/L (21-32) L Anion Gap 13 mmol/L (5-15) 11 mmol/L (5-15) Blood Urea Nitrogen 40 mg/dL (7-18) H 37 mg/dL (7-18) H Creatinine 1.8 MG/DL (0.55-1.30) H 1.8 MG/DL (0.55-1.30) H Estimat Glomerular Filtration Rate mL/min (>60) mL/min (>60) Glucose Level 162 MG/DL (74-106) #H 184 MG/DL (74-106) H Lactic Acid Level 2.30 mmol/L (0.4-2.0) H Calcium Level 7.4 MG/DL (8.5-10.1) L 8.1 MG/DL (8.5-10.1) L White Blood Count 23.1 K/UL (4.8-10.8) *H Red Blood Count 2.63 M/UL (4.20-5.40) L Hemoglobin 8.4 G/DL (12.0-16.0) L Hematocrit 27.3 % (37.0-47.0) L Mean Corpuscular Volume 104 FL (80-99) H Mean Corpuscular Hemoglobin 32.1 PG (27.0-31.0) H Mean Corpuscular Hemoglobin Concent 30.9 G/DL (32.0-36.0) L Red Cell Distribution Width 16.1 % (11.6-14.8) H Platelet Count 79 K/UL (150-450) L Mean Platelet Volume 12.1 FL (6.5-10.1) H Neutrophils (%) (Auto) % (45.0-75.0) Lymphocytes (%) (Auto) % (20.0-45.0) Monocytes (%) (Auto) % (1.0-10.0) Eosinophils (%) (Auto) % (0.0-3.0) Basophils (%) (Auto) % (0.0-2.0) Differential Total Cells Counted 100 Neutrophils % (Manual) 92 % (45-75) H Lymphocytes % (Manual) 6 % (20-45) L Monocytes % (Manual) 1 % (1-10) Eosinophils % (Manual) 0 % (0-3) Basophils % (Manual) 1 % (0-2) Band Neutrophils 0 % (0-8) Nucleated Red Blood Cells 1 /100 WBC Platelet Estimate Decreased L Platelet Morphology Normal Hypochromasia 2+ Anisocytosis 1+ Macrocytosis 1+ Random Vancomycin Level 12.1 ug/mL Current Medications Medications (Trade) Dose Ordered Sig/Chandu Route PRN Reason Start Time Stop Time Status Last Admin Dose Admin Acetaminophen (Tylenol) 650 mg Q4H PRN GT Temp > 100.5 02/23/19 17:00 03/25/19 16:59 02/25/19 17:13 Albuterol/ Ipratropium (Albuterol/ Ipratropium) 3 ml Q4HRT HHN 02/23/19 15:00 02/28/19 14:59 02/26/19 11:38 Amikacin Protocol (Amikacin pharmacy to dose) 1 ea DAILY PRN MISC Per rx protocol 02/24/19 16:45 03/26/19 16:44 Amikacin Sulfate 800 mg/Sodium Chloride 113.2 ml @ 113.2 mls/ hr Q48H IV 02/26/19 21:00 03/05/19 20:59 Ascorbic Acid (Vitamin C) 500 mg DAILY ORAL 02/24/19 09:00 03/26/19 08:59 02/26/19 08:03 Atorvastatin Calcium (Lipitor) 10 mg BEDTIME ORAL 02/23/19 21:00 03/25/19 20:59 02/25/19 20:13 Bethanechol Chloride (Urecholine) 5 mg THREE TIMES A DAY ORAL 02/23/19 18:00 03/25/19 17:59 02/26/19 12:24 Chlorhexidine Gluconate (Sue-Hex 2%) 1 applic DAILY@2000 TOPIC 02/23/19 20:00 03/25/19 19:59 02/25/19 20:13 Dextrose 1,000 ml @ 75 mls/hr [id number] IV 02/25/19 06:30 03/27/19 06:29 02/26/19 09:11 Dextrose (Dextrose 50%) 25 ml Q30M PRN IV Hypoglycemia 02/23/19 11:45 03/25/19 11:44 Dextrose (Dextrose 50%) 50 ml Q30M PRN IV Hypoglycemia 02/23/19 11:45 03/25/19 11:44 Doxycycline Hyclate 100 mg/ Dextrose 110 ml @ 110 mls/hr Q12HR@0600,1800 IV 02/23/19 18:00 03/02/19 17:59 02/26/19 05:52 Fentanyl Citrate 1000 mcg/Sodium Chloride 100 ml @ 0 mls/hr Q24H IV 02/23/19 14:00 03/02/19 13:59 Insulin Aspart (NovoLOG) Q6HR SUBQ 02/26/19 18:00 03/25/19 15:29 Memantine (Namenda) 10 mg Q12HR ORAL 02/23/19 21:00 03/25/19 20:59 02/26/19 08:03 Meropenem 1 gm/ Sodium Chloride 55 ml @ 110 mls/hr Q12HR@0600,1800 IVPB 02/24/19 18:00 03/01/19 17:59 02/26/19 05:53 Mineral Oil (Mineral Oil) 30 ml DAILYPRN PRN ORAL Constipation 02/25/19 16:42 03/27/19 16:41 02/25/19 17:13 Multivitamins (Multivitamins W/ Minerals 15ml Liquid) 15 ml DAILY GT 02/24/19 09:00 03/26/19 08:59 02/26/19 08:03 Norepinephrine Bitartrate 8 mg/ Dextrose 500 ml @ 0 mls/hr Q24H IV 02/24/19 23:00 03/26/19 22:59 02/26/19 10:15 Pantoprazole (Protonix) 40 mg DAILY IVP 02/24/19 09:00 03/26/19 08:59 02/26/19 08:03 Polyethylene Glycol (Miralax) 17 gm DAILYPRN PRN ORAL Constipation 02/23/19 12:15 9/2/19 12:14 02/26/19 08:04 Vancomycin HCl (Vanco rx to dose) 1 ea DAILY PRN MISC Per rx protocol 02/23/19 12:15 03/25/19 12:14 Frances Chavarria M.D. Feb 26, 2019 13:20
--- NOTE | 2019-02-26 15:07 | NUR ---
NURSE NOTES: Patient is resting in bed. Opens eyes spontaneously, able to move upper extremities. No acute distress noted. Oral care and cruz care provided. Patient kept clean and dry.
--- NOTE | 2019-02-26 16:15 | NUR ---
NURSE NOTES: Patient seen by Dr. Chavarria. Patient noted with rectal temp 99.3. cooling blanket on. Patient was turned and repositioned. Patient had no BM.
--- NOTE | 2019-02-26 16:45 | NUR ---
NURSE NOTES: Patient noted with BP 85/40, SR HR 90s. Levophed increased to 6mcg/min.
--- NOTE | 2019-02-26 17:30 | NUR ---
NURSE NOTES: Rectal temp 98.6 noted. Off cooling blanket.
--- NOTE | 2019-02-26 18:15 | NUR ---
NURSE NOTES: Patient is asleep, easily arousable to light touch. Patient is tolerating tube feeding, HOB kept elevated. Scales cath intact, draining urine by gravity. Levophed at 10mcg/min via right IJ TLC, BP 105/48, ST HR 105 noted on the monitor. Patient was turned and repositioned. Patient had no BM. NINA Patel made aware. No new orders at this time. Patient kept clean and dry. Addendum: 02/26/19 at 1853 by BLANCO EVANS RN Rectal temp 98.2
--- NOTE | 2019-02-26 19:10 | Cardiology Report ---
APPROVED REPORT EXAM: Two-dimensional and M-mode echocardiogram with Doppler and color Doppler. INDICATION Ejection fraction M-Mode DIMENSIONS IVSd1.4 (0.7-1.1cm)Left Atrium (MM)4.0 (1.6-4.0cm) LVDd3.6 (3.5-5.6cm)Aortic Root2.4 (2.0-3.7cm) PWd1.3 (0.7-1.1cm)Aortic Cusp Exc.1.5 (1.5-2.0cm) IVSs1.8 cm LVDs2.0 (2.5-4.0cm) PWs1.6 cm Technically difficult study due to poor acoustic windows. Study quality precludes accurate assessment of regional wall motion. Normal left ventricular chamber size, systolic function and wall motion. Left ventricular ejection fraction estimated to be 65 %. Mild left ventricular hypertrophy. Anterior Echo-free space, may be due to pericardial fat or effusion. All other cardiac chamber sizes are within normal limits. Focal aortic valve sclerosis with adequate cusp excursion. Thickened mitral valve leaflets with normal excursion. Mitral annulus and aortic root calcification. Pulmonic valve not well visualized. Normal tricuspid valve structure. IVC is normal in size with physiological collapse. A color flow and spectral Doppler study was performed and revealed: No aortic regurgitation. No mitral regurgitation. Mitral diastolic velocities suggest mild left ventricular diastolic dysfunction (Grade I). Trace tricuspid regurgitation. Tricuspid systolic velocities suggests peak right ventricular systolic pressure of 11 mmHg. No pulmonic regurgitation present.
--- NOTE | 2019-02-26 19:12 | NUR ---
HAND-OFF: Report given to DAKOTA Brewer.
--- NOTE | 2019-02-26 19:14 | NUR ---
RESPIRATORY NOTE: Received pt on AC 12, 400VT, 30%, PEEP +5. Pt intubated w/ ETT 7.0 @ 22cm lipline, secured by anchorfast. Pt asleep/disoriented. B/S jeniffer. diminished, sxn small amounts of thick, wyatt-brown secretions w/ occasional blood. No hand restraints as pt unable to move hands. Vent plugged into red outlet, ambubag at bedside. Pt in no apparent distress at this time. Will continue to monitor pt.
--- NOTE | 2019-02-26 19:22 | NUR ---
NURSE NOTES: pt orally intubated o2 sat 100 o/o no acute resp distress awake and alert but does not follows command reposition and suction on levo drip at 10 mcg /min bp 80/43
[2019-02-26] MEDS: Dyna-Hex 2% Top Sol 2oz TOPIC SCH (20:06)
[2019-02-26] MEDS ORDERED: Amikacin 800 MG in NS 110 ML IV SCH (21:00)
--- NOTE | 2019-02-26 22:00 | NUR ---
NURSE NOTES: asleep tolerating tube feeding no residual reposition and suction
[2019-02-27] VITALS (68 sets, daily range): BP systolic 77–134; BP diastolic 30–93
--- NOTE | 2019-02-27 | NUR ---
NURSE NOTES: levo dril at 12mcg /min with bp 99/45-120/56 temp 100 .6 cooling blanket on
--- NOTE | 2019-02-27 02:00 | NUR ---
NURSE NOTES: complete bed bath and oral care done temp 98.6
[2019-02-27] MEDS: Albuterol/Ipratropium 3ml neb HHN SCH ×6 (03:10→22:45)
[2019-02-27] MEDS: Norepinephrine Bitartrate 8 MG in D5W 500ml 492 ML IV SCH ×2 (03:45→17:56)
--- NOTE | 2019-02-27 04:00 | NUR ---
NURSE NOTES: levo 14 mcg/min with bp 85/45-111/60reposition and suction
[2019-02-27 05:00] LABS: HEMOGLOBIN 8.8 G/DL (12.0-16.0); MEAN CORPUSCULAR VOLUME 106 FL (80-99); PLATELET COUNT 93 K/UL (150-450); RED BLOOD COUNT 2.74 M/UL (4.20-5.40); WHITE BLOOD COUNT 17.1 K/UL (4.8-10.8)
[2019-02-27 05:24] LABS: ANION GAP 12 mmol/L (5-15); BLOOD UREA NITROGEN 35 mg/dL (7-18); CALCIUM 7.8 MG/DL (8.5-10.1); CARBON DIOXIDE 19 MMOL/L (21-32); CHLORIDE 116 MMOL/L (98-107); CREATININE 1.8 MG/DL (0.55-1.30); POTASSIUM 3.9 MMOL/L (3.5-5.1); SODIUM 147 MMOL/L (136-145)
[2019-02-27 05:38] LABS: ALANINE AMINOTRANSFERASE 20 U/L (12-78); ALBUMIN 1.6 G/DL (3.4-5.0); ALKALINE PHOSPHATASE 133 U/L (46-116); ASPARTATE AMINO TRANSFERASE 27 U/L (15-37); BILIRUBIN,DIRECT < 0.1 MG/DL (0.0-0.3); BILIRUBIN,TOTAL 0.3 MG/DL (0.2-1.0)
[2019-02-27] MEDS: Doxycycline Hyclate 100 MG in D5W 110 ML IV SCH ×2 (05:56→17:58)
[2019-02-27] MEDS: Meropenem 1 GM in NS 55 ML IVPB SCH ×2 (05:57→17:58)
[2019-02-27] MEDS: NovoLOG Insulin Flexpen SUBQ SCH ×4 (05:59→23:54)
--- NOTE | 2019-02-27 06:00 | NUR ---
kanika DESHPANDE NOTES: pt awake but doesnot follows command levo drip at 14mcg/min
--- NOTE | 2019-02-27 07:09 | NUR ---
RESPIRATORY NOTE: Received pt on AC 12-400VT, 30%, PEEP +5. Pt orally intubated with ETT 7.0 @ 22cm lipline, secured by anchor fast. Pt awake but unable to follow commands .Bhanu diminished breath sounds heard upon auscultation, sxn small amounts of thick brown wyatt secretions without incidents. Vent plugged into red outlet, alarms are set and audible, ambu bag at bedside. Vent circuits and sxn tubing are secured and out of the way. Pt resting comfortably, in no apparent distress at this time. Will continue to monitor pt.
--- NOTE | 2019-02-27 07:20 | NUR ---
NURSE NOTES: Received the patient from DAKOTA Brewer. Patient opens eyes spontaneously, unable to follow commands, easily arousable to light touch. Orally intubated, ETT 7.0, 22cm at lip line, vent settings: AC12, TV400, FIO2 30%, PEEP 5. O2 sat 100%. No acute distress noted. Diminished breath sounds bilaterally upon auscultation. ST 114 noted on the monitor. On Glucerna 1.2 at 60 ml/hr via G-tube. HOB kept elevated. Patient noted with soft non-tender large abdomen. Turned on cooling blanket, temp 100.0. Right IJ TLC intact and patent, running Levophed at 14mcg/min and D5W at 75ml/hr. BP 114/86. Dressings intact, clean and dry. Scales cath intact, draining pale yellow urine by gravity. Bed in lowest position, locked, side rails upx3. Will continue to monitor.
--- NOTE | 2019-02-27 07:37 | NUR ---
HAND-OFF: Report given to omer morales rn.
[2019-02-27] MEDS: Ascorbic Acid 500mg tab ORAL SCH (08:19)
[2019-02-27] MEDS: Multivitamins W/Minerals 15 ML UDC GT SCH (08:19)
[2019-02-27] MEDS: Bethanechol 10mg Tab ORAL SCH ×3 (08:19→17:56)
[2019-02-27] MEDS: Pantoprazole Inj IVP SCH (08:19)
[2019-02-27] MEDS: Memantine 10mg tab ORAL SCH ×2 (08:19→20:32)
--- NOTE | 2019-02-27 08:19 | NUR ---
Social Work (late entry 02/26/2019) This Sw met with patient who is currently in the ICU who is currently intubated, sedated. Patient is from [facility] and remains full code, full treatment at this time. Patients daughter, Aurelia Levy ([phone]) is listed as the primary contact for patient. SW to follow further for emotional support as needed. Pending progress at this time.
--- NOTE | 2019-02-27 08:39 | General Progress Note ---
Assessment/Plan Status: stable Assessment/Plan: (1) Feeding by G-tube (2) Diabetes (3) Anemia (4) Sepsis (5) Respiratory failure GTF fu H&H ppi daily respiratory care ABX manual disimpaction mineral oil enema add lactulose Subjective ROS Limited/Unobtainable: No Allergies: Coded Allergies: SULFA (SULFONAMIDE ANTIBIOTICS) (Unverified Allergy, Unknown, 09/30/18) COPIED FROM UNCODED Uncoded Allergies: SULFA (Allergy, Unknown, 11/20/18) Objective Last 24 Hour Vital Signs Date Time Temp Pulse Resp B/P (MAP) Pulse Ox O2 Delivery O2 Flow Rate FiO2 02/27/19 08:00 30 02/27/19 08:00 123/52 02/27/19 08:00 Mechanical Ventilator 02/27/19 08:00 113 28 123/52 (75) 98 02/27/19 07:30 114 34 104/44 (64) 100 02/27/19 07:19 112 33 100 Mechanical Ventilator 30 02/27/19 07:09 113 31 30 02/27/19 07:09 113 31 100 Mechanical Ventilator 30 02/27/19 07:00 110 30 95/40 (58) 98 02/27/19 06:57 103/45 02/27/19 06:45 110 30 97/30 (52) 98 02/27/19 06:30 110 30 95/40 (58) 98 02/27/19 06:00 110 30 99/40 (59) 98 02/27/19 06:00 82/35 02/27/19 05:45 110 30 94/43 (60) 98 02/27/19 05:30 110 30 94/43 (60) 98 02/27/19 05:18 109 30 30 02/27/19 05:15 110 30 96/43 (60) 98 02/27/19 05:00 113 32 103/65 (78) 98 02/27/19 05:00 95/60 02/27/19 04:45 111 30 110/43 (65) 98 02/27/19 04:30 113 29 112/43 (66) 98 02/27/19 04:15 115 22 115/65 (82) 98 02/27/19 04:00 112 02/27/19 04:00 98.6 115 22 82/64 (70) 98 02/27/19 04:00 Mechanical Ventilator 02/27/19 04:00 82/64 02/27/19 04:00 30 02/27/19 03:45 72/35 02/27/19 03:45 113 22 95/35 (55) 98 02/27/19 03:30 114 22 106/45 (65) 98 02/27/19 03:20 116 27 100 Mechanical Ventilator 30 02/27/19 03:15 115 20 100/35 (56) 98 02/27/19 03:10 114 37 100 Mechanical Ventilator 30 02/27/19 03:10 114 37 30 02/27/19 03:00 117 22 110/35 (60) 98 02/27/19 02:45 114 24 84/35 (51) 98 02/27/19 02:30 120 22 110/35 (60) 98 02/27/19 02:00 98.6 120 22 110/35 (60) 98 02/27/19 01:45 114 22 100/35 (56) 98 02/27/19 01:30 119 22 98/42 (60) 98 02/27/19 01:21 125 34 30 02/27/19 01:15 120 20 101/44 (63) 100 02/27/19 01:00 116 22 116/41 (66) 98 02/27/19 00:45 114 18 125/35 (65) 98 02/27/19 00:30 123 20 114/45 (68) 100 02/27/19 00:15 121 32 77/59 (65) 97 02/27/19 00:00 117 02/27/19 00:00 100.6 114 22 125/35 (65) 98 02/27/19 00:00 125/35 02/27/19 00:00 30 02/27/19 00:00 Mechanical Ventilator 02/26/19 23:45 113 22 110/41 (64) 97 02/26/19 23:30 96 21 112/36 (61) 100 02/26/19 23:21 101 29 100 Mechanical Ventilator 30 02/26/19 23:15 100 22 110/41 (64) 98 02/26/19 23:10 102 31 100 Mechanical Ventilator 30 02/26/19 23:09 102 31 30 02/26/19 23:00 102 30 100/45 (63) 100 02/26/19 23:00 110/41 8 22:45 102 32 84/36 (52) 99 02/26/19 22:30 96 30 92/36 (54) 100 8 22:15 99 30 97/34 (55) 100 02/26/19 22:00 99 30 96/39 (58) 100 02/26/19 22:00 96/30 02/26/19 21:45 98 30 100/40 (60) 100 02/26/19 21:30 96 30 92/36 (54) 100 02/26/19 21:15 99 30 96/45 (62) 100 02/26/19 21:00 96 30 100/36 (57) 100 02/26/19 21:00 91/43 02/26/19 20:58 98 34 30 02/26/19 20:45 100 25 95/42 (59) 100 02/26/19 20:30 100 25 102/36 (58) 100 02/26/19 20:15 99 25 100/36 (57) 100 02/26/19 20:00 Mechanical Ventilator 02/26/19 20:00 104/42 02/26/19 20:00 100 02/26/19 20:00 98.8 95 28 102/36 (58) 100 02/26/19 20:00 30 02/26/19 19:45 98 25 104/42 (62) 100 02/26/19 19:30 99 26 106/53 (70) 100 02/26/19 19:20 98 32 99 Mechanical Ventilator 30 02/26/19 19:15 98 25 82/38 (53) 100 02/26/19 19:10 97 35 100 Mechanical Ventilator 30 02/26/19 19:10 97 35 30 02/26/19 19:00 95 25 102/36 (58) 100 02/26/19 19:00 102/36 02/26/19 18:45 98 28 106/57 (73) 100 02/26/19 18:45 106/57 02/26/19 18:30 99 20 105/55 (72) 98 02/26/19 18:30 105/55 02/26/19 18:15 92/42 02/26/19 18:15 103 18 92/42 (59) 100 02/26/19 18:00 100 27 105/48 (67) 100 02/26/19 18:00 105/48 02/26/19 17:45 102 23 87/78 (81) 100 8 17:45 87/78 02/26/19 17:30 97/42 8 17:30 98.6 98 27 97/42 (60) 100 02/26/19 17:28 99 38 30 02/26/19 17:15 91/43 02/26/19 17:15 100 23 91/43 (59) 100 02/26/19 17:00 99 18 90/44 (59) 100 02/26/19 17:00 90/44 02/26/19 16:45 98 21 73/42 (52) 100 02/26/19 16:45 73/42 02/26/19 16:30 85/40 02/26/19 16:30 99 23 85/40 (55) 100 02/26/19 16:00 99.3 103 20 98/40 (59) 100 02/26/19 16:00 30 02/26/19 16:00 102 02/26/19 16:00 98/40 02/26/19 16:00 Mechanical Ventilator 02/26/19 15:30 91 21 100/41 (60) 100 02/26/19 15:30 100/41 02/26/19 15:15 102/63 02/26/19 15:15 93 20 102/63 (76) 100 02/26/19 15:13 98 31 100 Mechanical Ventilator 30 02/26/19 15:12 96 33 30 02/26/19 15:06 96 40 100 Mechanical Ventilator 30 02/26/19 15:00 97/45 02/26/19 15:00 91 19 97/45 (62) 100 02/26/19 14:45 90 18 102/43 (62) 100 02/26/19 14:45 102/43 02/26/19 14:30 96 27 90/41 (57) 100 02/26/19 14:30 90/41 02/26/19 14:15 97 24 92/42 (59) 100 02/26/19 14:15 92/42 02/26/19 14:00 96 28 91/43 (59) 99 02/26/19 14:00 91/43 02/26/19 13:45 100 22 88/41 (57) 100 02/26/19 13:30 101 22 101/56 (71) 100 02/26/19 13:30 101/56 02/26/19 13:27 100 33 30 02/26/19 13:15 101/41 02/26/19 13:15 104 30 101/41 (61) 97 02/26/19 13:00 129/48 02/26/19 13:00 106 30 129/48 (75) 100 02/26/19 12:30 97 21 92/43 (59) 100 02/26/19 12:00 95 02/26/19 12:00 96/42 02/26/19 12:00 98.4 97 20 96/42 (60) 100 02/26/19 12:00 Mechanical Ventilator 02/26/19 12:00 30 02/26/19 11:40 99 28 100 Mechanical Ventilator 30 02/26/19 11:30 95 28 100 Mechanical Ventilator 30 02/26/19 11:30 98 24 97/44 (61) 98 02/26/19 11:30 97/44 02/26/19 11:24 93 34 30 02/26/19 11:15 96 21 101/44 (63) 100 02/26/19 11:15 101/44 02/26/19 11:00 90 26 108/50 (69) 100 02/26/19 11:00 108/50 02/26/19 10:45 97 24 97/44 (61) 100 02/26/19 10:45 97/44 02/26/19 10:30 92/50 02/26/19 10:30 101 24 92/50 (64) 100 02/26/19 10:18 97 23 111/43 (65) 100 02/26/19 10:15 69/41 02/26/19 10:15 97 25 69/41 (50) 100 02/26/19 10:00 95 26 85/40 (55) 100 02/26/19 09:15 30 02/26/19 09:05 100 02/26/19 09:04 94 28 30 720 02/26/19 09:00 95 20 88/47 (61) 100 Intake and Output 02/26/19 02/27/19 19:00 07:00 Intake Total 2415.950 ml 2548.2 ml Output Total 745 ml 2790 ml Balance 1670.950 ml -241.8 ml Free Water 200 ml 100 ml IV Total 1495.950 ml 1728.2 ml Tube Feeding 720 ml 720 ml Output Urine Total 745 ml 2790 ml Laboratory Tests 02/26/19 13:50: Lactic Acid Level 2.60H 02/27/19 04:15: Lactic Acid Level 3.20H, White Blood Count 17.1H, Red Blood Count 2.74L, Hemoglobin 8.8L, Hematocrit 29.0L, Mean Corpuscular Volume 106H, Mean Corpuscular Hemoglobin 32.2H, Mean Corpuscular Hemoglobin Concent 30.3L, Red Cell Distribution Width 16.0H, Platelet Count 93L, Mean Platelet Volume 11.1H, Neutrophils (%) (Auto) , Lymphocytes (%) (Auto) , Monocytes (%) (Auto) , Eosinophils (%) (Auto) , Basophils (%) (Auto) , Differential Total Cells Counted 100, Neutrophils % (Manual) 88H, Lymphocytes % (Manual) 8L, Monocytes % (Manual) 4, Eosinophils % (Manual) 0, Basophils % (Manual) 0, Band Neutrophils 0 , Platelet Estimate DecreasedL, Platelet Morphology Normal, Anisocytosis 1+, Macrocytosis 1+, Sodium Level 147H, Potassium Level 3.9, Chloride Level 116H, Carbon Dioxide Level 19L, Anion Gap 12, Blood Urea Nitrogen 35H, Creatinine 1.8H , Estimat Glomerular Filtration Rate , Glucose Level 272H, Calcium Level 7.8L, Total Bilirubin 0.3, Direct Bilirubin < 0.1, Aspartate Amino Transf (AST/SGOT) 27, Alanine Aminotransferase (ALT/SGPT) 20, Alkaline Phosphatase 133H, Total Protein 5.8L, Albumin 1.6L 02/27/19 06:20: Lactic Acid Level 2.70H Height (Feet): 5 Height (Inches): 8.00 Weight (Pounds): 180 General Appearance: confused EENT: normal ENT inspection Neck: supple Cardiovascular: normal rate Respiratory/Chest: decreased breath sounds Abdomen: normal bowel sounds, non tender, soft, distended Extremities: non-tender Ramos Rutledge MD Feb 27, 2019 08:38
[2019-02-27] MEDS ORDERED: Fleet's Mineral Oil Enema RECTAL SCH (08:45)
--- NOTE | 2019-02-27 08:45 | NUR ---
NURSE NOTES: Dr. Rutledge here to see the patient. Informed MD that pt had no BM yet.
[2019-02-27] MEDS: Docusate 100mg tablet ORAL SCH ×2 (08:52→17:56)
[2019-02-27] MEDS: Lactulose 20gm/30ml UDC ORAL SCH ×3 (08:52→17:56)
--- NOTE | 2019-02-27 09:00 | NUR ---
NURSE NOTES: new bowel regimen noted and given, enema given.
--- NOTE | 2019-02-27 09:13 | NUR ---
RESPIRATORY NOTE: At 0910, placed pt on CPAP PS 8, peep 5, 30% FiO2. Pt passed the weaning criteria RSBI 49, NIF -34, RR 30bpm. However, unable to continue weaning due to elevated HR (from 120 to 170bpm). Put pt back on C mode with the previous settings, HR decreased back to 115bpm, no SOB or resp distress. RN Caitlyn Pineda made aware. Will continue to monitor pt.
--- NOTE | 2019-02-27 09:14 | NUR ---
RD ASSESSMENT & RECOMMENDATIONS SEE CARE ACTIVITY FOR COMPLETE ASSESSMENT DAILY ESTIMATED NEEDS: Needs based on Critical care, sepsis, DM, 67.5kg abw 22-28 kcals/kg 9140-1057 total kcals 1.2-2 g protein/kg 81-135 g total protein 20-25 mL/kg 3414-2635 total fluid mLs NUTRITION DIAGNOSIS: 1) Swallowing difficulty R/T dysphagia as evidenced by pt is GT dep, now s/p intubation. 2) Altered nutrition related lab values R/T sepsis, critical care, DM, as evidenced by critically elev Na (164-> 147), elev BUN(90-> 35 trend down), elev creat (2.2-> 1.8), elev BGs (400's-> 272 184 improved), elev POC, Uglu 4+ on adm, elev wbc (17.1 trend down), febrile (Tmax 100.6), low BP, on pressor support CURRENT TF:Glucerna 1.2 @ 60ml x 24 hrs ENTERAL NUTRITION RECOMMENDATIONS: Glucerna 1.2 @ 60ml/hr x24 hrs + Prosource x1 daily to provide 1440ml, 1728kcal, 86g + 11g prot, 1159ml free water While on pressor support rec low infusion/ trophic feeds of Glucerna 1.2 (@10-15ml/hr) W/ hemodynamic stability, rec goal rate of 60ml/hr x 24 hrs (add prosource x1 daily for an extra 11g pro /day) - Flush per MD/ HOB over 30 degrees ADDITIONAL RECOMMENDATIONS: 1) Calibrated bedscale wt 2) Check lytes daily, replete as needed 3) F/ up w/ WC eval for coccyx wound 4) Monitor BGs closely ->rec LONG ACTING INSULIN, DC D5 IVF (increase water flushes instead) 5) Consider lipid lowering agent (triglycerides >600) 6) Monitor BM regularity- colace + lactulose added 02/27, no BM since adm
--- NOTE | 2019-02-27 10:00 | NUR ---
NURSE NOTES: rectal temp 98.5. cooling blanket turned off.
--- NOTE | 2019-02-27 10:50 | NUR ---
NURSE NOTES: Patient seen by Dr. García. updated on pt's condition. Levophed running at 10mcg/min. No BM. Dr. Salgado was consulted. Addendum: 02/27/19 at 1102 by BLANCO EVANS RN made aware of increased urine output
--- NOTE | 2019-02-27 10:55 | Nephrology Progress Note ---
Assessment/Plan Status: stable Assessment/Plan: A/P 1) Septic Shock- Elevated WBC improving. PNA - Abx mgmt per ID - levophed restarted 2) Resp FL- mgmt per Dr Ashton 3) Hypernatremia- improved 171---164---157---147 - change IVFs to NS 4) ANOMY- Cr and BUN much improved 5) E- ABN- replace K+/Mg Phos as needed 6) DVT prophylaxis- with SCDs Subjective Date patient seen: Feb 27, 2019 Time patient seen: 10:53 ROS Limited/Unobtainable: Yes Allergies: Coded Allergies: SULFA (SULFONAMIDE ANTIBIOTICS) (Unverified Allergy, Unknown, 09/30/18) COPIED FROM UNCODED Uncoded Allergies: SULFA (Allergy, Unknown, 11/20/18) Subjective Patient remains intubated on ventilator but more awake Objective Last 24 Hour Vital Signs Date Time Temp Pulse Resp B/P (MAP) Pulse Ox O2 Delivery O2 Flow Rate FiO2 02/27/19 09:45 112 27 117/48 (71) 100 02/27/19 09:45 117/48 02/27/19 09:30 131/59 02/27/19 09:30 109 31 131/59 (83) 100 02/27/19 09:15 118 26 125/56 (79) 100 02/27/19 09:15 125/56 02/27/19 09:13 115 34 30 02/27/19 09:12 170 30 30 02/27/19 09:00 110 25 125/73 (90) 100 02/27/19 09:00 125/73 02/27/19 08:30 108 32 134/44 (74) 100 02/27/19 08:00 30 02/27/19 08:00 123/52 02/27/19 08:00 Mechanical Ventilator 02/27/19 08:00 100.0 113 28 123/52 (75) 98 02/27/19 07:30 114 34 104/44 (64) 100 02/27/19 07:19 112 33 100 Mechanical Ventilator 30 02/27/19 07:09 113 31 30 02/27/19 07:09 113 31 100 Mechanical Ventilator 30 02/27/19 07:00 110 30 95/40 (58) 98 02/27/19 06:57 103/45 02/27/19 06:45 110 30 97/30 (52) 98 02/27/19 06:30 110 30 95/40 (58) 98 02/27/19 06:00 110 30 99/40 (59) 98 02/27/19 06:00 82/35 02/27/19 05:45 110 30 94/43 (60) 98 02/27/19 05:30 110 30 94/43 (60) 98 02/27/19 05:18 109 30 30 02/27/19 05:15 110 30 96/43 (60) 98 02/27/19 05:00 113 32 103/65 (78) 98 02/27/19 05:00 95/60 02/27/19 04:45 111 30 110/43 (65) 98 02/27/19 04:30 113 29 112/43 (66) 98 02/27/19 04:15 115 22 115/65 (82) 98 02/27/19 04:00 112 02/27/19 04:00 98.6 115 22 82/64 (70) 98 02/27/19 04:00 Mechanical Ventilator 02/27/19 04:00 82/64 02/27/19 04:00 30 02/27/19 03:45 72/35 02/27/19 03:45 113 22 95/35 (55) 98 02/27/19 03:30 114 22 106/45 (65) 98 02/27/19 03:20 116 27 100 Mechanical Ventilator 30 02/27/19 03:15 115 20 100/35 (56) 98 02/27/19 03:10 114 37 100 Mechanical Ventilator 30 02/27/19 03:10 114 37 30 02/27/19 03:00 117 22 110/35 (60) 98 02/27/19 02:45 114 24 84/35 (51) 98 02/27/19 02:30 120 22 110/35 (60) 98 02/27/19 02:00 98.6 120 22 110/35 (60) 98 02/27/19 01:45 114 22 100/35 (56) 98 02/27/19 01:30 119 22 98/42 (60) 98 02/27/19 01:21 125 34 30 02/27/19 01:15 120 20 101/44 (63) 100 02/27/19 01:00 116 22 116/41 (66) 98 02/27/19 00:45 114 18 125/35 (65) 98 02/27/19 00:30 123 20 114/45 (68) 100 02/27/19 00:15 121 32 77/59 (65) 97 02/27/19 00:00 117 02/27/19 00:00 100.6 114 22 125/35 (65) 98 02/27/19 00:00 125/35 02/27/19 00:00 30 02/27/19 00:00 Mechanical Ventilator 02/26/19 23:45 113 22 110/41 (64) 97 02/26/19 23:30 96 21 112/36 (61) 100 02/26/19 23:21 101 29 100 Mechanical Ventilator 30 02/26/19 23:15 100 22 110/41 (64) 98 02/26/19 23:10 102 31 100 Mechanical Ventilator 30 02/26/19 23:09 102 31 30 02/26/19 23:00 102 30 100/45 (63) 100 02/26/19 23:00 110/41 02/26/19 22:45 102 32 84/36 (52) 99 02/26/19 22:30 96 30 92/36 (54) 100 02/26/19 22:15 99 30 97/34 (55) 100 02/26/19 22:00 99 30 96/39 (58) 100 02/26/19 22:00 96/30 02/26/19 21:45 98 30 100/40 (60) 100 02/26/19 21:30 96 30 92/36 (54) 100 02/26/19 21:15 99 30 96/45 (62) 100 02/26/19 21:00 96 30 100/36 (57) 100 02/26/19 21:00 91/43 02/26/19 20:58 98 34 30 02/26/19 20:45 100 25 95/42 (59) 100 02/26/19 20:30 100 25 102/36 (58) 100 02/26/19 20:15 99 25 100/36 (57) 100 02/26/19 20:00 Mechanical Ventilator 02/26/19 20:00 104/42 02/26/19 20:00 100 02/26/19 20:00 98.8 95 28 102/36 (58) 100 02/26/19 20:00 30 02/26/19 19:45 98 25 104/42 (62) 100 02/26/19 19:30 99 26 106/53 (70) 100 02/26/19 19:20 98 32 99 Mechanical Ventilator 30 02/26/19 19:15 98 25 82/38 (53) 100 02/26/19 19:10 97 35 100 Mechanical Ventilator 30 02/26/19 19:10 97 35 30 02/26/19 19:00 95 25 102/36 (58) 100 02/26/19 19:00 102/36 02/26/19 18:45 98 28 106/57 (73) 100 02/26/19 18:45 106/57 02/26/19 18:30 99 20 105/55 (72) 98 02/26/19 18:30 105/55 02/26/19 18:15 92/42 02/26/19 18:15 103 18 92/42 (59) 100 02/26/19 18:00 100 27 105/48 (67) 100 02/26/19 18:00 105/48 02/26/19 17:45 102 23 87/78 (81) 100 02/26/19 17:45 87/78 02/26/19 17:30 97/42 02/26/19 17:30 98.6 98 27 97/42 (60) 100 02/26/19 17:28 99 38 30 02/26/19 17:15 91/43 02/26/19 17:15 100 23 91/43 (59) 100 02/26/19 17:00 99 18 90/44 (59) 100 02/26/19 17:00 90/44 02/26/19 16:45 98 21 73/42 (52) 100 02/26/19 16:45 73/42 02/26/19 16:30 85/40 02/26/19 16:30 99 23 85/40 (55) 100 02/26/19 16:00 99.3 103 20 98/40 (59) 100 02/26/19 16:00 30 02/26/19 16:00 102 02/26/19 16:00 98/40 02/26/19 16:00 Mechanical Ventilator 02/26/19 15:30 91 21 100/41 (60) 100 8/01/09 15:30 100/41 8/6/ 15:15 102/63 8/01/09 15:15 93 20 102/63 (76) 100 8/01/09 15:13 98 31 100 Mechanical Ventilator 30 8 15:12 96 33 30 8/01/09 15:06 96 40 100 Mechanical Ventilator 30 02/26/19 15:00 97/45 8/01/09 15:00 91 19 97/45 (62) 100 8 14:45 90 18 102/43 (62) 100 8/01/09 14:45 102/43 8/01/09 14:30 96 27 90/41 (57) 100 8 14:30 90/41 8 14:15 97 24 92/42 (59) 100 819 14:15 92/42 8 14:00 96 28 91/43 (59) 99 8 14:00 91/43 02/26/19 13:45 100 22 88/41 (57) 100 8/01/09 13:30 101 22 101/56 (71) 100 8/01/09 13:30 101/56 8 13:27 100 33 30 02/26/19 13:15 101/41 8 13:15 104 30 101/41 (61) 97 8/01/09 13:00 129/48 8/01/09 13:00 106 30 129/48 (75) 100 8 12:30 97 21 92/43 (59) 100 02/26/19 12:00 95 02/26/19 12:00 96/42 8 12:00 98.4 97 20 96/42 (60) 100 8/01/09 12:00 Mechanical Ventilator 02/26/19 12:00 30 8 11:40 99 28 100 Mechanical Ventilator 30 02/26/19 11:30 95 28 100 Mechanical Ventilator 30 02/26/19 11:30 98 24 97/44 (61) 98 8 11:30 97/44 8/01/09 11:24 93 34 30 02/26/19 11:15 96 21 101/44 (63) 100 02/26/19 11:15 101/44 02/26/19 11:00 90 26 108/50 (69) 100 02/26/19 11:00 108/50 Intake and Output 02/26/19 02/27/19 19:00 07:00 Intake Total 2415.950 ml 2548.2 ml Output Total 745 ml 2790 ml Balance 1670.950 ml -241.8 ml Free Water 200 ml 100 ml IV Total 1495.950 ml 1728.2 ml Tube Feeding 720 ml 720 ml Output Urine Total 745 ml 2790 ml Laboratory Tests 02/26/19 13:50: Lactic Acid Level 2.60H 02/27/19 04:15: Lactic Acid Level 3.20H, White Blood Count 17.1H, Red Blood Count 2.74L, Hemoglobin 8.8L, Hematocrit 29.0L, Mean Corpuscular Volume 106H, Mean Corpuscular Hemoglobin 32.2H, Mean Corpuscular Hemoglobin Concent 30.3L, Red Cell Distribution Width 16.0H, Platelet Count 93L, Mean Platelet Volume 11.1H, Neutrophils (%) (Auto) , Lymphocytes (%) (Auto) , Monocytes (%) (Auto) , Eosinophils (%) (Auto) , Basophils (%) (Auto) , Differential Total Cells Counted 100, Neutrophils % (Manual) 88H, Lymphocytes % (Manual) 8L, Monocytes % (Manual) 4, Eosinophils % (Manual) 0, Basophils % (Manual) 0, Band Neutrophils 0 , Platelet Estimate DecreasedL, Platelet Morphology Normal, Anisocytosis 1+, Macrocytosis 1+, Sodium Level 147H, Potassium Level 3.9, Chloride Level 116H, Carbon Dioxide Level 19L, Anion Gap 12, Blood Urea Nitrogen 35H, Creatinine 1.8H , Estimat Glomerular Filtration Rate , Glucose Level 272H, Calcium Level 7.8L, Total Bilirubin 0.3, Direct Bilirubin < 0.1, Aspartate Amino Transf (AST/SGOT) 27, Alanine Aminotransferase (ALT/SGPT) 20, Alkaline Phosphatase 133H, Total Protein 5.8L, Albumin 1.6L 02/27/19 06:20: Lactic Acid Level 2.70H Height (Feet): 5 Height (Inches): 8.00 Weight (Pounds): 180 General Appearance: no apparent distress, alert EENT: normal ENT inspection Neck: normal alignment, supple Cardiovascular: normal rate, regular rhythm Respiratory/Chest: lungs clear, normal breath sounds Abdomen: non tender, soft Edema: no edema noted Arm (L), no edema noted Arm (R), no edema noted Leg (L), no edema noted Leg (R), no edema noted Pedal (L), no edema noted Pedal (R), no edema noted Generalized Jakub García MD Feb 27, 2019 10:55
--- NOTE | 2019-02-27 11:10 | NUR ---
NURSE NOTES: Patient seen by Dr. Cadena. Informed MD that patient had an episode of SVT HR 170 during weaning trial. unable to wean today. No new orders at this time.
--- NOTE | 2019-02-27 11:25 | NUR ---
NURSE NOTES: manual disimpaction performed by Dr. Salgado. Patient tolerated well.
--- NOTE | 2019-02-27 12:05 | NUR ---
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 100.0 HR 118 RR 34 B/P 125/56 AC 12 TV 400 FIO2 30% PEEP 5 WBC 17.1 BUN 35 CR 1.8 LACTID ACID 3.20 IS: IVF NS @ 75ML/HR LEVOPHED GTT MEROPENEM IV AMIKACIN IV DOXYCYCLINE IV TELE STATUS
--- NOTE | 2019-02-27 13:15 | NUR ---
NURSE NOTES: Patient is awake, opens eyes spontaneously, moves upper extremities. Levophed at 6mcg/min via right IJ. BP 98/53.
--- NOTE | 2019-02-27 13:43 | Diagnostic Imaging Report ---
APPROVED REPORT CPT Code: 66355 Present Symptoms Shortness of breath BILATERAL: Imaging reveals a patent deep venous system bilaterally. There is no evidence of thrombus within the femoral, popliteal or tibial segments. The greater saphenous veins are also within normal limits. Doppler indicates normal spontaneous flow within these segments.
--- NOTE | 2019-02-27 15:02 | NUR ---
NURSE NOTES: Patient noted with residual 120ml. tube feeding held. HOB kept elevated.
--- NOTE | 2019-02-27 15:16 | Pulmonolgy Critical Care Note ---
Critical Care - Asmt/Plan Assessment/Plan: Pulmonary CCM Progress Note HPI Patient is an 84-year-old female admitted with Pneumonia, Dehydration from VT, noted to have increased fever and altered mental status. Patient had been noted to be more obtunded. She had prior history of dementia. Patient was noted to have fever up to 100.6. Patient was brought to the hospital and was noted to be hypotensive by EMS and was started on IV fluids. She had prior history of G-tube dependence. History is limited by patient's mental status and confusion. Patient was noted to have blood sugar greater than 200 initially. Hypernatremia improving. On Insulin gtt, Ventilator AC settings adjusted Allergies: SULFA (SULFONAMIDE ANTIBIOTICS) PMH: CHF, Hypertension, Diabetes type 2, Dementia Impression: Pneumonia Severe sepsis Respiratory failure Dehydration Hypernatremia Ethmoid sinusitis Diabetes Acute renal failure leukocytosis protein calorie malnutrition Plan care noted IV antibiotics; monitor cultures respiratory care Ventilatory meds supportive care as outlined suction as needed oxygen therapy prognosis guarded not ready for wean medications/laboratory data/nursing notes/ICU care reviewed in detail note reviewed and edited care discussed with RN and RT ICU time spent 40 minutes Critical Care - Subjective Interval Events: remains ill care noted and reviewed reduced LOC ROS Limited/Unobtainable: Yes Condition: critical EKG Rhythm: Sinus Rhythm ETT: 7.5 Vital signs noted: Labs noted Test 02/23/19 09:23 02/23/19 10:00 02/23/19 10:20 02/23/19 12:45 Arterial Blood pH 7.458 (7.350-7.450) Arterial Blood Partial Pressure CO2 32.6 mmHg (35.0-45.0) Arterial Blood Partial Pressure O2 310.3 mmHg (75.0-100.0) Arterial Blood HCO3 22.6 mmol/L (22.0-26.0) Arterial Blood Oxygen Saturation 99.1 % (95-100) Arterial Blood Base Excess -0.8 (-2-2) Cam Test Positive Urine Color Pale yellow Urine Appearance Clear Urine pH 8 (4.5-8.0) Urine Specific [place] 1.015 (1.005-1.035) Urine Protein 3+ (NEGATIVE) Urine Glucose (UA) 4+ (NEGATIVE) Urine Ketones Negative (NEGATIVE) Urine Blood 5+ (NEGATIVE) Urine Nitrite Negative (NEGATIVE) Urine Bilirubin Negative (NEGATIVE) Urine Urobilinogen Normal MG/DL (0.0-1.0) Urine Leukocyte Esterase 1+ (NEGATIVE) Urine RBC 30-40 /HPF (0 - 2) Urine WBC 5-10 /HPF (0 - 2) Urine Squamous Epithelial Cells Few /LPF (NONE/OCC) Urine Bacteria Few /HPF (NONE) Lactic Acid Level 2.30 mmol/L (0.66-2.22) Glucose Level 432 MG/DL (74-106) Hemoglobin A1c 8.3 % (4.3-6.0) Test 02/23/19 14:55 02/23/19 16:20 02/23/19 18:30 02/23/19 20:00 Arterial Blood pH 7.514 (7.350-7.450) 7.530 (7.350-7.450) Arterial Blood Partial Pressure CO2 26.6 mmHg (35.0-45.0) 24.6 mmHg (35.0-45.0) Arterial Blood Partial Pressure O2 72.1 mmHg (75.0-100.0) 180.2 mmHg (75.0-100.0) Arterial Blood HCO3 20.9 mmol/L (22.0-26.0) 20.1 mmol/L (22.0-26.0) Arterial Blood Oxygen Saturation 94.8 % (95-100) 98.7 % (95-100) Arterial Blood Base Excess -1.1 (-2-2) -1.6 (-2-2) Cam Test Positive Positive White Blood Count 18.6 K/UL (4.8-10.8) Red Blood Count 2.89 M/UL (4.20-5.40) Hemoglobin 9.5 G/DL (12.0-16.0) Hematocrit 30.3 % (37.0-47.0) Mean Corpuscular Volume 105 FL (80-99) Mean Corpuscular Hemoglobin 32.9 PG (27.0-31.0) Mean Corpuscular Hemoglobin Concent 31.4 G/DL (32.0-36.0) Red Cell Distribution Width 16.0 % (11.6-14.8) Platelet Count 98 K/UL (150-450) Mean Platelet Volume 11.4 FL (6.5-10.1) Neutrophils (%) (Auto) % (45.0-75.0) Lymphocytes (%) (Auto) % (20.0-45.0) Monocytes (%) (Auto) % (1.0-10.0) Eosinophils (%) (Auto) % (0.0-3.0) Basophils (%) (Auto) % (0.0-2.0) Differential Total Cells Counted 100 Neutrophils % (Manual) 80 % (45-75) Lymphocytes % (Manual) 15 % (20-45) Monocytes % (Manual) 5 % (1-10) Eosinophils % (Manual) 0 % (0-3) Basophils % (Manual) 0 % (0-2) Band Neutrophils 0 % (0-8) Platelet Estimate Decreased Platelet Morphology Normal Red Blood Cell Morphology Normal Sodium Level 171 MMOL/L (136-145) Potassium Level 3.6 MMOL/L (3.5-5.1) Chloride Level 135 MMOL/L (98-107) Carbon Dioxide Level 27 MMOL/L (21-32) Anion Gap 9 mmol/L (5-15) Blood Urea Nitrogen 113 mg/dL (7-18) Creatinine 2.2 MG/DL (0.55-1.30) Estimat Glomerular Filtration Rate mL/min (>60) Glucose Level 444 MG/DL (74-106) Calcium Level 7.7 MG/DL (8.5-10.1) Lactic Acid Level 3.30 mmol/L (0.4-2.0) Test 02/23/19 21:52 02/24/19 05:12 02/24/19 08:16 02/24/19 10:25 Sodium Level 164 MMOL/L (136-145) 164 MMOL/L (136-145) Potassium Level 3.3 MMOL/L (3.5-5.1) 4.3 MMOL/L (3.5-5.1) Chloride Level 130 MMOL/L (98-107) 129 MMOL/L (98-107) Carbon Dioxide Level 23 MMOL/L (21-32) 23 MMOL/L (21-32) Anion Gap 12 mmol/L (5-15) 12 mmol/L (5-15) Blood Urea Nitrogen 103 mg/dL (7-18) 90 mg/dL (7-18) Creatinine 2.2 MG/DL (0.55-1.30) 2.2 MG/DL (0.55-1.30) Estimat Glomerular Filtration Rate mL/min (>60) mL/min (>60) Glucose Level 377 MG/DL (74-106) 251 MG/DL (74-106) Lactic Acid Level 2.60 mmol/L (0.4-2.0) 2.60 mmol/L (0.4-2.0) 2.90 mmol/L (0.66-2.22) Calcium Level 7.4 MG/DL (8.5-10.1) 8.5 MG/DL (8.5-10.1) White Blood Count 21.6 K/UL (4.8-10.8) Red Blood Count 2.90 M/UL (4.20-5.40) Hemoglobin 9.3 G/DL (12.0-16.0) Hematocrit 31.4 % (37.0-47.0) Mean Corpuscular Volume 108 FL (80-99) Mean Corpuscular Hemoglobin 32.1 PG (27.0-31.0) Mean Corpuscular Hemoglobin Concent 29.7 G/DL (32.0-36.0) Red Cell Distribution Width 16.5 % (11.6-14.8) Platelet Count 87 K/UL (150-450) Mean Platelet Volume 11.2 FL (6.5-10.1) Neutrophils (%) (Auto) % (45.0-75.0) Lymphocytes (%) (Auto) % (20.0-45.0) Monocytes (%) (Auto) % (1.0-10.0) Eosinophils (%) (Auto) % (0.0-3.0) Basophils (%) (Auto) % (0.0-2.0) Differential Total Cells Counted 100 Neutrophils % (Manual) 84 % (45-75) Lymphocytes % (Manual) 11 % (20-45) Monocytes % (Manual) 5 % (1-10) Eosinophils % (Manual) 0 % (0-3) Basophils % (Manual) 0 % (0-2) Band Neutrophils 0 % (0-8) Platelet Estimate Decreased Platelet Morphology Normal Anisocytosis 1+ Macrocytosis 1+ Phosphorus Level 3.1 MG/DL (2.5-4.9) Magnesium Level 3.8 MG/DL (1.8-2.4) Total Creatine Kinase 239 U/L (26-308) Random Vancomycin Level 9.8 ug/mL Arterial Blood pH 7.453 (7.350-7.450) Arterial Blood Partial Pressure CO2 29.6 mmHg (35.0-45.0) Arterial Blood Partial Pressure O2 87.9 mmHg (75.0-100.0) Arterial Blood HCO3 20.3 mmol/L (22.0-26.0) Arterial Blood Oxygen Saturation 96.2 % (95-100) Arterial Blood Base Excess -3.0 (-2-2) Cam Test Positive Test 02/24/19 14:10 02/24/19 16:00 02/24/19 16:20 02/24/19 21:45 Sodium Level 155 MMOL/L (136-145) Potassium Level 3.1 MMOL/L (3.5-5.1) Chloride Level 122 MMOL/L (98-107) Carbon Dioxide Level 22 MMOL/L (21-32) Anion Gap 11 mmol/L (5-15) Blood Urea Nitrogen 73 mg/dL (7-18) Creatinine 2.2 MG/DL (0.55-1.30) Estimat Glomerular Filtration Rate mL/min (>60) Glucose Level 417 MG/DL (74-106) Lactic Acid Level 3.30 mmol/L (0.4-2.0) 2.70 mmol/L (0.66-2.22) 2.40 mmol/L (0.4-2.0) Calcium Level 8.0 MG/DL (8.5-10.1) Urine Color Pale yellow Urine Appearance Slightly cloudy Urine pH 6 (4.5-8.0) Urine Specific [place] 1.010 (1.005-1.035) Urine Protein 3+ (NEGATIVE) Urine Glucose (UA) 4+ (NEGATIVE) Urine Ketones Negative (NEGATIVE) Urine Blood 4+ (NEGATIVE) Urine Nitrite Negative (NEGATIVE) Urine Bilirubin Negative (NEGATIVE) Urine Urobilinogen Normal MG/DL (0.0-1.0) Urine Leukocyte Esterase 2+ (NEGATIVE) Urine RBC 15-20 /HPF (0 - 2) Urine WBC 10-15 /HPF (0 - 2) Urine Squamous Epithelial Cells Few /LPF (NONE/OCC) Urine Bacteria Moderate /HPF (NONE) Test 02/24/19 23:45 02/25/19 04:20 02/25/19 06:02/25/19 08:00 Lactic Acid Level 2.30 mmol/L (0.66-2.22) 2.40 mmol/L (0.4-2.0) 3.00 mmol/L (0.66-2.22) White Blood Count 24.2 K/UL (4.8-10.8) Red Blood Count 3.04 M/UL (4.20-5.40) Hemoglobin 9.8 G/DL (12.0-16.0) Hematocrit 32.3 % (37.0-47.0) Mean Corpuscular Volume 107 FL (80-99) Mean Corpuscular Hemoglobin 32.3 PG (27.0-31.0) Mean Corpuscular Hemoglobin Concent 30.3 G/DL (32.0-36.0) Red Cell Distribution Width 16.3 % (11.6-14.8) Platelet Count 93 K/UL (150-450) Mean Platelet Volume 11.5 FL (6.5-10.1) Neutrophils (%) (Auto) % (45.0-75.0) Lymphocytes (%) (Auto) % (20.0-45.0) Monocytes (%) (Auto) % (1.0-10.0) Eosinophils (%) (Auto) % (0.0-3.0) Basophils (%) (Auto) % (0.0-2.0) Differential Total Cells Counted 100 Neutrophils % (Manual) 81 % (45-75) Lymphocytes % (Manual) 16 % (20-45) Monocytes % (Manual) 3 % (1-10) Eosinophils % (Manual) 0 % (0-3) Basophils % (Manual) 0 % (0-2) Band Neutrophils 0 % (0-8) Platelet Estimate Decreased Platelet Morphology Normal Anisocytosis 1+ Macrocytosis 1+ Sodium Level 157 MMOL/L (136-145) 158 MMOL/L (136-145) Potassium Level 3.1 MMOL/L (3.5-5.1) 3.4 MMOL/L (3.5-5.1) Chloride Level 125 MMOL/L (98-107) 126 MMOL/L (98-107) Carbon Dioxide Level 22 MMOL/L (21-32) 21 MMOL/L (21-32) Anion Gap 10 mmol/L (5-15) 11 mmol/L (5-15) Blood Urea Nitrogen 56 mg/dL (7-18) 53 mg/dL (7-18) Creatinine 2.0 MG/DL (0.55-1.30) 2.0 MG/DL (0.55-1.30) Estimat Glomerular Filtration Rate mL/min (>60) mL/min (>60) Glucose Level 258 MG/DL (74-106) 321 MG/DL (74-106) Calcium Level 7.8 MG/DL (8.5-10.1) 7.0 MG/DL (8.5-10.1) Phosphorus Level 2.7 MG/DL (2.5-4.9) Magnesium Level 2.9 MG/DL (1.8-2.4) Random Amikacin Level 24.3 ug/mL Test 02/25/19 09:00 02/25/19 13:00 02/25/19 14:44 02/25/19 18:30 Arterial Blood pH 7.408 (7.350-7.450) 7.371 (7.350-7.450) Arterial Blood Partial Pressure CO2 25.5 mmHg (35.0-45.0) 32.3 mmHg (35.0-45.0) Arterial Blood Partial Pressure O2 113.2 mmHg (75.0-100.0) 88.0 mmHg (75.0-100.0) Arterial Blood HCO3 15.7 mmol/L (22.0-26.0) 18.3 mmol/L (22.0-26.0) Arterial Blood Oxygen Saturation 97.9 % (95-100) 96.7 % (95-100) Arterial Blood Base Excess -7.7 (-2-2) -6.1 (-2-2) Cam Test Positive Positive Lactic Acid Level 3.10 mmol/L (0.4-2.0) 2.30 mmol/L (0.4-2.0) Sodium Level 154 MMOL/L (136-145) Potassium Level 2.9 MMOL/L (3.5-5.1) Chloride Level 120 MMOL/L (98-107) Carbon Dioxide Level 21 MMOL/L (21-32) Anion Gap 13 mmol/L (5-15) Blood Urea Nitrogen 40 mg/dL (7-18) Creatinine 1.8 MG/DL (0.55-1.30) Estimat Glomerular Filtration Rate mL/min (>60) Glucose Level 162 MG/DL (74-106) Calcium Level 7.4 MG/DL (8.5-10.1) Test 02/26/19 04:00 White Blood Count 23.1 K/UL (4.8-10.8) Red Blood Count 2.63 M/UL (4.20-5.40) Hemoglobin 8.4 G/DL (12.0-16.0) Hematocrit 27.3 % (37.0-47.0) Mean Corpuscular Volume 104 FL (80-99) Mean Corpuscular Hemoglobin 32.1 PG (27.0-31.0) Mean Corpuscular Hemoglobin Concent 30.9 G/DL (32.0-36.0) Red Cell Distribution Width 16.1 % (11.6-14.8) Platelet Count 79 K/UL (150-450) Mean Platelet Volume 12.1 FL (6.5-10.1) Neutrophils (%) (Auto) % (45.0-75.0) Lymphocytes (%) (Auto) % (20.0-45.0) Monocytes (%) (Auto) % (1.0-10.0) Eosinophils (%) (Auto) % (0.0-3.0) Basophils (%) (Auto) % (0.0-2.0) Differential Total Cells Counted 100 Neutrophils % (Manual) 92 % (45-75) Lymphocytes % (Manual) 6 % (20-45) Monocytes % (Manual) 1 % (1-10) Eosinophils % (Manual) 0 % (0-3) Basophils % (Manual) 1 % (0-2) Band Neutrophils 0 % (0-8) Nucleated Red Blood Cells 1 /100 WBC Platelet Estimate Decreased Platelet Morphology Normal Hypochromasia 2+ Anisocytosis 1+ Macrocytosis 1+ Sodium Level 147 MMOL/L (136-145) Potassium Level 3.8 MMOL/L (3.5-5.1) Chloride Level 119 MMOL/L (98-107) Carbon Dioxide Level 17 MMOL/L (21-32) Anion Gap 11 mmol/L (5-15) Blood Urea Nitrogen 37 mg/dL (7-18) Creatinine 1.8 MG/DL (0.55-1.30) Estimat Glomerular Filtration Rate mL/min (>60) Glucose Level 184 MG/DL (74-106) Calcium Level 8.1 MG/DL (8.5-10.1) Random Vancomycin Level 12.1 ug/mL Objective: WDWN on vent ETT in place clear breath sounds bilaterally without rhonchi or wheeze [id number] without MRG NABS nontender no HSM no CCE sedated Micro: Microbiology Date/Time Source Procedure Growth Status 02/24/19 07:40 Sputum Induced Gram Stain - Final Resulted 02/24/19 07:40 Sputum Culture - Preliminary Gram Negative Jefry Resulted 02/24/19 16:00 Indwelling Cath Urine Culture - Preliminary NO GROWTH AFTER 24 HOURS Resulted Critical Care - Objective Last 24 Hour Vital Signs Date Time Temp Pulse Resp B/P (MAP) Pulse Ox O2 Delivery O2 Flow Rate FiO2 02/27/19 15:08 111 34 100 Mechanical Ventilator 30 02/27/19 15:00 102/48 02/27/19 15:00 110 30 102/48 (66) 100 02/27/19 14:54 110 35 100 Mechanical Ventilator 30 02/27/19 14:54 110 35 30 02/27/19 14:30 104 22 100/53 (69) 100 02/27/19 14:30 100/53 02/27/19 14:00 109/48 02/27/19 14:00 110 23 109/48 (68) 100 02/27/19 13:30 99/58 02/27/19 13:30 104 18 99/58 (72) 100 02/27/19 13:15 107 26 98/53 (68) 100 02/27/19 13:01 105 36 30 02/27/19 13:00 116/49 02/27/19 13:00 105 31 106/49 (68) 100 02/27/19 12:45 107 29 107/84 (92) 100 02/27/19 12:45 106/49 02/27/19 12:30 107/84 02/27/19 12:30 111 27 93/51 (65) 100 02/27/19 12:15 93/51 02/27/19 12:00 30 02/27/19 12:00 Mechanical Ventilator 02/27/19 12:00 105/57 02/27/19 12:00 115 02/27/19 12:00 98.2 113 30 105/57 (73) 100 02/27/19 11:45 100/66 02/27/19 11:45 112 26 100/66 (77) 99 02/27/19 11:30 112 27 126/48 (74) 100 02/27/19 11:30 126/48 02/27/19 11:15 102/43 02/27/19 11:15 110 25 102/43 (62) 100 02/27/19 11:09 115 37 100 Mechanical Ventilator 30 02/27/19 11:01 109 34 100 Mechanical Ventilator 30 02/27/19 11:00 94/67 02/27/19 11:00 109 33 94/67 (76) 100 02/27/19 10:59 109 38 30 02/27/19 10:45 103 21 109/53 (71) 100 02/27/19 10:45 109/53 02/27/19 10:30 108 28 123/51 (75) 100 02/27/19 10:30 123/51 02/27/19 10:15 110/57 02/27/19 10:15 109 30 110/57 (74) 100 02/27/19 10:00 111 26 98/65 (76) 100 02/27/19 10:00 127/65 02/27/19 09:45 112 27 117/48 (71) 100 02/27/19 09:45 117/48 02/27/19 09:30 131/59 02/27/19 09:30 109 31 131/59 (83) 100 02/27/19 09:15 118 26 125/56 (79) 100 02/27/19 09:15 125/56 02/27/19 09:13 115 34 30 02/27/19 09:12 170 30 30 02/27/19 09:00 110 25 125/73 (90) 100 02/27/19 09:00 125/73 02/27/19 08:30 108 32 134/44 (74) 100 02/27/19 08:00 114 02/27/19 08:00 30 02/27/19 08:00 123/52 02/27/19 08:00 Mechanical Ventilator 02/27/19 08:00 100.0 113 28 123/52 (75) 98 02/27/19 07:30 114 34 104/44 (64) 100 02/27/19 07:19 112 33 100 Mechanical Ventilator 30 02/27/19 07:09 113 31 30 02/27/19 07:09 113 31 100 Mechanical Ventilator 30 02/27/19 07:00 110 30 95/40 (58) 98 02/27/19 06:57 103/45 02/27/19 06:45 110 30 97/30 (52) 98 02/27/19 06:30 110 30 95/40 (58) 98 02/27/19 06:00 110 30 99/40 (59) 98 02/27/19 06:00 82/35 02/27/19 05:45 110 30 94/43 (60) 98 02/27/19 05:30 110 30 94/43 (60) 98 02/27/19 05:18 109 30 30 02/27/19 05:15 110 30 96/43 (60) 98 02/27/19 05:00 113 32 103/65 (78) 98 02/27/19 05:00 95/60 02/27/19 04:45 111 30 110/43 (65) 98 02/27/19 04:30 113 29 112/43 (66) 98 02/27/19 04:15 115 22 115/65 (82) 98 02/27/19 04:00 112 02/27/19 04:00 98.6 115 22 82/64 (70) 98 02/27/19 04:00 Mechanical Ventilator 02/27/19 04:00 82/64 02/27/19 04:00 30 02/27/19 03:45 72/35 02/27/19 03:45 113 22 95/35 (55) 98 02/27/19 03:30 114 22 106/45 (65) 98 02/27/19 03:20 116 27 100 Mechanical Ventilator 30 02/27/19 03:15 115 20 100/35 (56) 98 02/27/19 03:10 114 37 100 Mechanical Ventilator 30 02/27/19 03:10 114 37 30 02/27/19 03:00 117 22 110/35 (60) 98 02/27/19 02:45 114 24 84/35 (51) 98 02/27/19 02:30 120 22 110/35 (60) 98 02/27/19 02:00 98.6 120 22 110/35 (60) 98 02/27/19 01:45 114 22 100/35 (56) 98 02/27/19 01:30 119 22 98/42 (60) 98 02/27/19 01:21 125 34 30 02/27/19 01:15 120 20 101/44 (63) 100 02/27/19 01:00 116 22 116/41 (66) 98 02/27/19 00:45 114 18 125/35 (65) 98 02/27/19 00:30 123 20 114/45 (68) 100 02/27/19 00:15 121 32 77/59 (65) 97 02/27/19 00:00 117 02/27/19 00:00 100.6 114 22 125/35 (65) 98 02/27/19 00:00 125/35 02/27/19 00:00 30 02/27/19 00:00 Mechanical Ventilator 02/26/19 23:45 113 22 110/41 (64) 97 02/26/19 23:30 96 21 112/36 (61) 100 02/26/19 23:21 101 29 100 Mechanical Ventilator 30 02/26/19 23:15 100 22 110/41 (64) 98 02/26/19 23:10 102 31 100 Mechanical Ventilator 30 02/26/19 23:09 102 31 30 02/26/19 23:00 102 30 100/45 (63) 100 02/26/19 23:00 110/41 02/26/19 22:45 102 32 84/36 (52) 99 02/26/19 22:30 96 30 92/36 (54) 100 02/26/19 22:15 99 30 97/34 (55) 100 02/26/19 22:00 99 30 96/39 (58) 100 02/26/19 22:00 96/30 02/26/19 21:45 98 30 100/40 (60) 100 02/26/19 21:30 96 30 92/36 (54) 100 02/26/19 21:15 99 30 96/45 (62) 100 02/26/19 21:00 96 30 100/36 (57) 100 02/26/19 21:00 91/43 02/26/19 20:58 98 34 30 02/26/19 20:45 100 25 95/42 (59) 100 02/26/19 20:30 100 25 102/36 (58) 100 02/26/19 20:15 99 25 100/36 (57) 100 02/26/19 20:00 Mechanical Ventilator 02/26/19 20:00 104/42 02/26/19 20:00 100 02/26/19 20:00 98.8 95 28 102/36 (58) 100 02/26/19 20:00 30 02/26/19 19:45 98 25 104/42 (62) 100 02/26/19 19:30 99 26 106/53 (70) 100 02/26/19 19:20 98 32 99 Mechanical Ventilator 30 02/26/19 19:15 98 25 82/38 (53) 100 02/26/19 19:10 97 35 100 Mechanical Ventilator 30 02/26/19 19:10 97 35 30 02/26/19 19:00 95 25 102/36 (58) 100 02/26/19 19:00 102/36 02/26/19 18:45 98 28 106/57 (73) 100 02/26/19 18:45 106/57 02/26/19 18:30 99 20 105/55 (72) 98 02/26/19 18:30 105/55 02/26/19 18:15 92/42 02/26/19 18:15 103 18 92/42 (59) 100 02/26/19 18:00 100 27 105/48 (67) 100 02/26/19 18:00 105/48 02/26/19 17:45 102 23 87/78 (81) 100 02/26/19 17:45 87/78 02/26/19 17:30 97/42 02/26/19 17:30 98.6 98 27 97/42 (60) 100 02/26/19 17:28 99 38 30 02/26/19 17:15 91/43 02/26/19 17:15 100 23 91/43 (59) 100 02/26/19 17:00 99 18 90/44 (59) 100 02/26/19 17:00 90/44 02/26/19 16:45 98 21 73/42 (52) 100 02/26/19 16:45 73/42 02/26/19 16:30 85/40 02/26/19 16:30 99 23 85/40 (55) 100 02/26/19 16:00 99.3 103 20 98/40 (59) 100 02/26/19 16:00 30 02/26/19 16:00 102 02/26/19 16:00 98/40 02/26/19 16:00 Mechanical Ventilator 02/26/19 15:30 91 21 100/41 (60) 100 02/26/19 15:30 100/41 02/26/19 15:15 102/63 02/26/19 15:15 93 20 102/63 (76) 100 02/26/19 15:13 98 31 100 Mechanical Ventilator 30 Micro: Microbiology Date/Time Source Procedure Growth Status 02/25/19 18:35 Blood Blood Culture - Preliminary NO GROWTH AFTER 24 HOURS Resulted 02/25/19 18:30 Blood Blood Culture - Preliminary NO GROWTH AFTER 24 HOURS Resulted 02/24/19 16:00 Indwelling Cath Urine Culture - Final NO GROWTH AFTER 48 HOURS Complete Accucheck: 221 Critical Care - Subjective ROS Limited/Unobtainable: No Condition: stable FI02: 30 Vent Support Breath Rate: 12 Vent Support Mode: AC Vent Tidal Volume: 400 Sputum Amount: Scant PEEP: 5.0 PIP: 15 Tube Feeding Amount: 0 I&O: Intake and Output 02/26/19 02/27/19 19:00 07:00 Intake Total 2415.950 ml 2548.2 ml Output Total 745 ml 2790 ml Balance 1670.950 ml -241.8 ml Free Water 200 ml 100 ml IV Total 1495.950 ml 1728.2 ml Tube Feeding 720 ml 720 ml Output Urine Total 745 ml 2790 ml ET-Tube: 7.0 ET Position: 22 Robert Cadena MD Feb 27, 2019 15:16
[2019-02-27] MEDS ORDERED: Tubing IV Secondary IV ONE (16:43)
[2019-02-27] MEDS ORDERED: NS 275ml ONE (16:43)
--- NOTE | 2019-02-27 17:00 | NUR ---
NURSE NOTES: Patient is asleep, easily arousable to light touch. Patient is on levophed at 6 mcg/min.
--- NOTE | 2019-02-27 18:15 | NUR ---
NURSE NOTES: Patient had normal BM x1. Patient was kept clean and dry. resumed tube feeding at 30ml/hr. 5ml residual noted. HOB elevated. Patient was turned and repositioned.
--- NOTE | 2019-02-27 19:00 | NUR ---
RESPIRATORY NOTE: Received pt orally intubated on vent settings of AC/VC RR 12, VT 400, FIO2 30%, and peep +5. Pt is on size 7 ett at 22 at the lip, secured by anchor fast.Pt has a scheduled Duoneb q4 inhalation which I will give at the moment. Small to moderate amount of secretions through the ett and orally, will sxn as needed. Ambu bag near bedside. Vent is plugged into red outlet. Will continue to monitor pt's progress.
--- NOTE | 2019-02-27 19:10 | Cardiology Report ---
APPROVED REPORT EKG Measurement Heart [id number] Sinus tachycardia Low voltage QRS Borderline ECG
--- NOTE | 2019-02-27 19:27 | NUR ---
HAND-OFF: Report given to DAKOTA Brewer.
--- NOTE | 2019-02-27 19:31 | Infectious Diseases Prog Note ---
Assessment/Plan Assessment/Plan Assessment: Septic Shock- likely 2ry to PNA- r/o bacteremia -KUB: Fecal impaction distal sigmoid/rectum. -02/25 CXR: Development of lower lobe infiltrates. Correlate clinically for pneumonia -CXR:Endotracheal tube 2.8 cm above the ludwig in good position. Mild cardiomegaly. Mild right upper lobe interstitial prominence. -CT head: No acute intracranial process. Involutional changes with small vessel disease. Moderate ethmoid sinus mucosal thickening and fluid. Small fluid level in the right sphenoid sinus. -u/a wbc 5-10, nit neg, leuk +1; ucx Neg -02/23 Bcx NTD; 02/25 Bcx NTD -sp cx ESBL E.coli, S.aureus (sensi pending), P.stuarti (S Ceftriaxone, Ertapenem, Zosyn) -2d Echo: no vegetations Acute respiratory failure s/p intubation 02/23 Fever; improving Leukocytosis; increased,now improving Lactic acidosis; increased NAOMY on CKD Hypernatremia hx of MRSA bacteremia 11/2018 -TTE no vegetation hx of ESBL E.coli UTI 11/2018 HTN Dm2 CHF COPD dysphagia s/p GT HLD OA advanced Dementia non verbal SNF resident Plan: -Continue empiric Doxycycline #/-7 pending legionella ag urine -Continue empiric Meropenem #/-14 for ESBL PNA -D/c empiric Amikacin #4 pending cultures -Resume IV Vancomycin #5 pending S. aureus sensi -/ SP IV Vancomycin #4 -/ SP Zosyn #2 -/ SP Cefepime x1, Flagyl x1 -f/u cx -Monitor CBC/BMP, temperatures -f/u legionella ag urine -Cdiff if diarrhea -CBC, CMP am Thank you for this consultation. Will continue to follow along with you. Discussed with RN. Subjective Allergies: Coded Allergies: SULFA (SULFONAMIDE ANTIBIOTICS) (Unverified Allergy, Unknown, 09/30/18) COPIED FROM UNCODED Uncoded Allergies: SULFA (Allergy, Unknown, 11/20/18) Subjective Tm 100.9 wbc improving remains on Levophed at 6 Bcx NTD Objective Vital Signs Last 24 Hour Vital Signs Date Time Temp Pulse Resp B/P (MAP) Pulse Ox O2 Delivery O2 Flow Rate FiO2 02/27/19 19:08 115 30 100 Mechanical Ventilator 30 02/27/19 19:00 112 33 30 02/27/19 19:00 114 24 119/93 (102) 100 02/27/19 18:59 112 33 99 Mechanical Ventilator 30 02/27/19 18:30 107/44 02/27/19 18:30 110 29 117/41 (66) 100 02/27/19 18:00 117/41 02/27/19 18:00 119 28 107/44 (65) 98 02/27/19 17:56 110/47 02/27/19 17:55 99/53 02/27/19 17:30 117 27 110/47 (68) 100 02/27/19 17:21 98 32 30 02/27/19 17:00 110/47 02/27/19 17:00 107 33 129/56 (80) 100 02/27/19 16:30 108 33 115/56 (75) 100 02/27/19 16:00 Mechanical Ventilator 02/27/19 16:00 98.6 111 33 91/51 (64) 100 02/27/19 16:00 98/51 02/27/19 16:00 110 02/27/19 16:00 30 02/27/19 15:30 111 27 98/51 (67) 100 02/27/19 15:08 111 34 100 Mechanical Ventilator 30 02/27/19 15:00 102/48 02/27/19 15:00 110 30 102/48 (66) 100 02/27/19 14:54 110 35 100 Mechanical Ventilator 30 02/27/19 14:54 110 35 30 02/27/19 14:30 104 22 100/53 (69) 100 02/27/19 14:30 100/53 02/27/19 14:00 109/48 02/27/19 14:00 110 23 109/48 (68) 100 02/27/19 13:30 99/58 02/27/19 13:30 104 18 99/58 (72) 100 02/27/19 13:15 107 26 98/53 (68) 100 02/27/19 13:01 105 36 30 02/27/19 13:00 116/49 02/27/19 13:00 105 31 106/49 (68) 100 02/27/19 12:45 107 29 107/84 (92) 100 02/27/19 12:45 106/49 02/27/19 12:30 107/84 02/27/19 12:30 111 27 93/51 (65) 100 02/27/19 12:15 93/51 02/27/19 12:00 30 02/27/19 12:00 Mechanical Ventilator 02/27/19 12:00 105/57 02/27/19 12:00 115 02/27/19 12:00 98.2 113 30 105/57 (73) 100 02/27/19 11:45 100/66 02/27/19 11:45 112 26 100/66 (77) 99 02/27/19 11:30 112 27 126/48 (74) 100 02/27/19 11:30 126/48 02/27/19 11:15 102/43 02/27/19 11:15 110 25 102/43 (62) 100 02/27/19 11:09 115 37 100 Mechanical Ventilator 30 02/27/19 11:01 109 34 100 Mechanical Ventilator 30 02/27/19 11:00 94/67 02/27/19 11:00 109 33 94/67 (76) 100 02/27/19 10:59 109 38 30 02/27/19 10:45 103 21 109/53 (71) 100 02/27/19 10:45 109/53 02/27/19 10:30 108 28 123/51 (75) 100 02/27/19 10:30 123/51 02/27/19 10:15 110/57 02/27/19 10:15 109 30 110/57 (74) 100 02/27/19 10:00 111 26 98/65 (76) 100 02/27/19 10:00 127/65 02/27/19 09:45 112 27 117/48 (71) 100 02/27/19 09:45 117/48 02/27/19 09:30 131/59 02/27/19 09:30 109 31 131/59 (83) 100 02/27/19 09:15 118 26 125/56 (79) 100 02/27/19 09:15 125/56 02/27/19 09:13 115 34 30 02/27/19 09:12 170 30 30 02/27/19 09:00 110 25 125/73 (90) 100 02/27/19 09:00 125/73 02/27/19 08:30 108 32 134/44 (74) 100 02/27/19 08:00 114 02/27/19 08:00 30 02/27/19 08:00 123/52 02/27/19 08:00 Mechanical Ventilator 02/27/19 08:00 100.0 113 28 123/52 (75) 98 02/27/19 07:30 114 34 104/44 (64) 100 02/27/19 07:19 112 33 100 Mechanical Ventilator 30 02/27/19 07:09 113 31 30 02/27/19 07:09 113 31 100 Mechanical Ventilator 30 02/27/19 07:00 110 30 95/40 (58) 98 02/27/19 06:57 103/45 02/27/19 06:45 110 30 97/30 (52) 98 02/27/19 06:30 110 30 95/40 (58) 98 02/27/19 06:00 110 30 99/40 (59) 98 02/27/19 06:00 82/35 02/27/19 05:45 110 30 94/43 (60) 98 02/27/19 05:30 110 30 94/43 (60) 98 02/27/19 05:18 109 30 30 02/27/19 05:15 110 30 96/43 (60) 98 02/27/19 05:00 113 32 103/65 (78) 98 02/27/19 05:00 95/60 02/27/19 04:45 111 30 110/43 (65) 98 02/27/19 04:30 113 29 112/43 (66) 98 02/27/19 04:15 115 22 115/65 (82) 98 02/27/19 04:00 112 02/27/19 04:00 98.6 115 22 82/64 (70) 98 02/27/19 04:00 Mechanical Ventilator 02/27/19 04:00 82/64 02/27/19 04:00 30 02/27/19 03:45 72/35 02/27/19 03:45 113 22 95/35 (55) 98 02/27/19 03:30 114 22 106/45 (65) 98 02/27/19 03:20 116 27 100 Mechanical Ventilator 30 02/27/19 03:15 115 20 100/35 (56) 98 02/27/19 03:10 114 37 100 Mechanical Ventilator 30 02/27/19 03:10 114 37 30 02/27/19 03:00 117 22 110/35 (60) 98 02/27/19 02:45 114 24 84/35 (51) 98 02/27/19 02:30 120 22 110/35 (60) 98 02/27/19 02:00 98.6 120 22 110/35 (60) 98 02/27/19 01:45 114 22 100/35 (56) 98 02/27/19 01:30 119 22 98/42 (60) 98 02/27/19 01:21 125 34 30 02/27/19 01:15 120 20 101/44 (63) 100 02/27/19 01:00 116 22 116/41 (66) 98 02/27/19 00:45 114 18 125/35 (65) 98 02/27/19 00:30 123 20 114/45 (68) 100 02/27/19 00:15 121 32 77/59 (65) 97 02/27/19 00:00 117 02/27/19 00:00 100.6 114 22 125/35 (65) 98 02/27/19 00:00 125/35 02/27/19 00:00 30 02/27/19 00:00 Mechanical Ventilator 02/26/19 23:45 113 22 110/41 (64) 97 02/26/19 23:30 96 21 112/36 (61) 100 02/26/19 23:21 101 29 100 Mechanical Ventilator 30 02/26/19 23:15 100 22 110/41 (64) 98 02/26/19 23:10 102 31 100 Mechanical Ventilator 30 02/26/19 23:09 102 31 30 02/26/19 23:00 102 30 100/45 (63) 100 02/26/19 23:00 110/41 02/26/19 22:45 102 32 84/36 (52) 99 02/26/19 22:30 96 30 92/36 (54) 100 02/26/19 22:15 99 30 97/34 (55) 100 02/26/19 22:00 99 30 96/39 (58) 100 02/26/19 22:00 96/30 02/26/19 21:45 98 30 100/40 (60) 100 02/26/19 21:30 96 30 92/36 (54) 100 02/26/19 21:15 99 30 96/45 (62) 100 02/26/19 21:00 96 30 100/36 (57) 100 02/26/19 21:00 91/43 02/26/19 20:58 98 34 30 02/26/19 20:45 100 25 95/42 (59) 100 02/26/19 20:30 100 25 102/36 (58) 100 02/26/19 20:15 99 25 100/36 (57) 100 02/26/19 20:00 Mechanical Ventilator 02/26/19 20:00 104/42 02/26/19 20:00 100 02/26/19 20:00 98.8 95 28 102/36 (58) 100 02/26/19 20:00 30 02/26/19 19:45 98 25 104/42 (62) 100 02/26/19 19:30 99 26 106/53 (70) 100 Height (Feet): 5 Height (Inches): 8.00 Weight (Pounds): 180 Objective General Appearance: lethargic, moderate distress Lines, tubes and drains: peripheral, central line, gtube HEENT: normocephalic, atraumatic, anicteric, mucous membranes moist, PERRL, EOMI, pharynx normal, supple, no JVD Neck: non-tender, normal alignment, supple, normal inspection Respiratory/Chest: accessory muscle use, crackles/rales, rhonchi - bilaterally , rhonchi - left Cardiovascular/Chest: normal peripheral pulses, regular rhythm, tachycardia Abdomen: normal bowel sounds, non tender, soft, no organomegaly, no mass Extremities: normal range of motion, non-tender, normal inspection, no calf tenderness, normal capillary refill, non-pitting Skin Exam: normal pigmentation, warm/dry, cyanotic Neurologic: sensory deficit, unresponsiveness Microbiology Date/Time Source Procedure Growth Status 02/25/19 18:35 Blood Blood Culture - Preliminary NO GROWTH AFTER 24 HOURS Resulted 02/25/19 18:30 Blood Blood Culture - Preliminary NO GROWTH AFTER 24 HOURS Resulted Laboratory Tests Test 02/27/19 04:15 02/27/19 06:20 White Blood Count 17.1 K/UL (4.8-10.8) H Red Blood Count 2.74 M/UL (4.20-5.40) L Hemoglobin 8.8 G/DL (12.0-16.0) L Hematocrit 29.0 % (37.0-47.0) L Mean Corpuscular Volume 106 FL (80-99) H Mean Corpuscular Hemoglobin 32.2 PG (27.0-31.0) H Mean Corpuscular Hemoglobin Concent 30.3 G/DL (32.0-36.0) L Red Cell Distribution Width 16.0 % (11.6-14.8) H Platelet Count 93 K/UL (150-450) L Mean Platelet Volume 11.1 FL (6.5-10.1) H Neutrophils (%) (Auto) % (45.0-75.0) Lymphocytes (%) (Auto) % (20.0-45.0) Monocytes (%) (Auto) % (1.0-10.0) Eosinophils (%) (Auto) % (0.0-3.0) Basophils (%) (Auto) % (0.0-2.0) Differential Total Cells Counted 100 Neutrophils % (Manual) 88 % (45-75) H Lymphocytes % (Manual) 8 % (20-45) L Monocytes % (Manual) 4 % (1-10) Eosinophils % (Manual) 0 % (0-3) Basophils % (Manual) 0 % (0-2) Band Neutrophils 0 % (0-8) Platelet Estimate Decreased L Platelet Morphology Normal Anisocytosis 1+ Macrocytosis 1+ Sodium Level 147 MMOL/L (136-145) H Potassium Level 3.9 MMOL/L (3.5-5.1) Chloride Level 116 MMOL/L (98-107) H Carbon Dioxide Level 19 MMOL/L (21-32) L Anion Gap 12 mmol/L (5-15) Blood Urea Nitrogen 35 mg/dL (7-18) H Creatinine 1.8 MG/DL (0.55-1.30) H Estimat Glomerular Filtration Rate mL/min (>60) Glucose Level 272 MG/DL (74-106) H Lactic Acid Level 3.20 mmol/L (0.4-2.0) H 2.70 mmol/L (0.66-2.22) H Calcium Level 7.8 MG/DL (8.5-10.1) L Total Bilirubin 0.3 MG/DL (0.2-1.0) Direct Bilirubin < 0.1 MG/DL (0.0-0.3) Aspartate Amino Transf (AST/SGOT) 27 U/L (15-37) Alanine Aminotransferase (ALT/SGPT) 20 U/L (12-78) Alkaline Phosphatase 133 U/L (46-116) H Total Protein 5.8 G/DL (6.4-8.2) L Albumin 1.6 G/DL (3.4-5.0) L Current Medications Medications (Trade) Dose Ordered Sig/Chandu Route PRN Reason Start Time Stop Time Status Last Admin Dose Admin Acetaminophen (Tylenol) 650 mg Q4H PRN GT Temp > 100.5 02/23/19 17:00 03/25/19 16:59 02/25/19 17:13 Albuterol/ Ipratropium (Albuterol/ Ipratropium) 3 ml Q4HRT HHN 02/23/19 15:00 02/28/19 14:59 02/27/19 18:59 Amikacin Protocol (Amikacin pharmacy to dose) 1 ea DAILY PRN MISC Per rx protocol 02/24/19 16:45 03/26/19 16:44 Amikacin Sulfate 800 mg/Sodium Chloride 113.2 ml @ 113.2 mls/ hr Q48H IV 02/26/19 21:00 03/05/19 20:59 02/26/19 21:01 Ascorbic Acid (Vitamin C) 500 mg DAILY ORAL 02/24/19 09:00 03/26/19 08:59 02/27/19 08:19 Atorvastatin Calcium (Lipitor) 10 mg BEDTIME ORAL 02/23/19 21:00 03/25/19 20:59 02/26/19 20:51 Bethanechol Chloride (Urecholine) 5 mg THREE TIMES A DAY ORAL 02/23/19 18:00 03/25/19 17:59 02/27/19 17:56 Chlorhexidine Gluconate (Sue-Hex 2%) 1 applic DAILY@2000 TOPIC 02/23/19 20:00 03/25/19 19:59 02/26/19 20:06 Dextrose (Dextrose 50%) 25 ml Q30M PRN IV Hypoglycemia 02/23/19 11:45 03/25/19 11:44 Dextrose (Dextrose 50%) 50 ml Q30M PRN IV Hypoglycemia 02/23/19 11:45 03/25/19 11:44 Docusate Sodium (Colace) 100 mg BID ORAL 02/27/19 09:00 03/29/19 08:59 02/27/19 17:56 Doxycycline Hyclate 100 mg/ Dextrose 110 ml @ 110 mls/hr Q12HR@0600,1800 IV 02/23/19 18:00 03/02/19 17:59 02/27/19 17:58 Fentanyl Citrate 1000 mcg/Sodium Chloride 100 ml @ 0 mls/hr Q24H IV 02/23/19 14:00 03/02/19 13:59 Insulin Aspart (NovoLOG) Q6HR SUBQ 02/26/19 18:00 03/25/19 15:29 02/27/19 17:57 Lactulose (Cephulac) 20 gm THREE TIMES A DAY ORAL 02/27/19 09:00 03/29/19 08:59 02/27/19 17:56 Memantine (Namenda) 10 mg Q12HR ORAL 02/23/19 21:00 03/25/19 20:59 02/27/19 08:19 Meropenem 1 gm/ Sodium Chloride 55 ml @ 110 mls/hr Q12HR@0600,1800 IVPB 02/24/19 18:00 03/01/19 17:59 02/27/19 17:58 Mineral Oil (Mineral Oil) 30 ml DAILYPRN PRN ORAL Constipation 02/25/19 16:42 03/27/19 16:41 02/25/19 17:13 Multivitamins (Multivitamins W/ Minerals 15ml Liquid) 15 ml DAILY GT 02/24/19 09:00 03/26/19 08:59 02/27/19 08:19 Norepinephrine Bitartrate 8 mg/ Dextrose 500 ml @ 0 mls/hr Q24H IV 02/24/19 23:00 03/26/19 22:59 02/27/19 17:56 Pantoprazole (Protonix) 40 mg DAILY IVP 02/24/19 09:00 03/26/19 08:59 02/27/19 08:19 Polyethylene Glycol (Miralax) 17 gm DAILYPRN PRN ORAL Constipation 02/23/19 12:15 03/25/19 12:14 02/26/19 08:04 Sodium Chloride 1,000 ml @ 75 mls/hr [id number] IV 02/27/19 11:00 03/29/19 10:59 02/27/19 11:10 Frances Chavarria M.D. Feb 27, 2019 19:31
--- NOTE | 2019-02-27 19:39 | NUR ---
NURSE NOTES: pt orally intubated o2 sat 100 o/o no acute distress noted on levo drip at 6mcg/min reposition and suction
[2019-02-27] MEDS: Dyna-Hex 2% Top Sol 2oz TOPIC SCH (20:31)
--- NOTE | 2019-02-27 21:43 | Consultation ---
History of Present Illness General Chief Complaint: Fever Referring physician: BROCK Reason for Consultation: fecal impaction Present Illness HPI 84 year old female with multiple medical comorbidities presented with fever, leukocytosis, lactic acidosis, noted to have fecal impaction. unable to improve with RX. surgery called to evaluate and assist with care. patient requires manual disimpaction. patient in ICU on vent support. unable to provide history or participate in exam. Allergies: Coded Allergies: SULFA (SULFONAMIDE ANTIBIOTICS) (Unverified Allergy, Unknown, 09/30/18) COPIED FROM UNCODED Uncoded Allergies: SULFA (Allergy, Unknown, 11/20/18) Medication History Scheduled Aspirin* (Aspir 81*), 81 MG GT DAILY, (Reported) Atorvastatin Calcium* (Lipitor*), 10 MG GT BEDTIME, (Reported) Bethanechol Chl (Bethanechol Chloride), 5 MG GT THREE TIMES A DAY, (Reported) Cranberry Extract (Cranberry), 425 MG GT DAILY, (Reported) Docusate Sodium (Docusate Sodium), 25 ML GT DAILY, (Reported) Doxazosin Mesylate* (Cardura*), 1 MG GT BEDTIME, (Reported) Insulin Aspart (Novolog Flexpen), SQ Q6HR, (Reported) Loratadine (Claritin), 10 MG GT DAILY, (Reported) Memantine HCl (Memantine HCl), 5 ML GT BID, (Reported) Multivitamin with Minerals (Support), 5 ML GT DAILY, (Reported) Rivastigmine Tartrate (Exelon), 9.5 MG TD DAILY, (Reported) Sucralfate (Carafate), 10 ML GT FOUR TIMES A DAY, (Reported) Vit C/Ascorbate Ca/Ascorb Sod (Vitamin C 500 Mg/15 Ml Liquid), 500 MG GT DAILY, (Reported) Scheduled PRN Acetaminophen (Tylenol), 325 MG GT Q4HR PRN for Fever/Headache/Mild Pain, ( Reported) Acetaminophen* (Acetaminophen 325MG Tablet*), 650 MG GT Q4H PRN for Moderate Pain (Pain Scale 4-6), (Reported) Ipratropium/Albuterol Sulfate (DuoNeb 0.5-3(2.5)mg/3ml), 3 ML HHN Q6HR PRN for Shortness of Breath, (Reported) Polyethylene Glycol 3350* (Miralax*), 17 GM GT DAILYPRN PRN for Constipation Discontinued Medications Atorvastatin Calcium* (Atorvastatin Calcium*), 10 MG GT BEDTIME, (Reported) Discontinued Reason: Prescription changed Memantine Hcl* (Namenda*), 10 MG GT TWICE A DAY, (Reported) Discontinued Reason: Prescription changed Multivitamin Liquid* (Multi-Delyn*), 5 ML GT DAILY, (Reported) Discontinued Reason: Prescription changed Nystatin (Nystatin), 1 EACH TOPIC TWICE A DAY, (Reported) Discontinued Reason: Therapy completed Sucralfate* (Carafate*), 1 GM GT Q6HR, (Reported) Discontinued Reason: Medication dose changed Triamcinolone Acet (Triamcinolone Acetonide), 15 GM TOPIC TWICE A DAY, (Reported ) Discontinued Reason: Therapy completed Patient History Limited by: medical condition History Provided By: Medical Record, PMD Healthcare decision maker Resuscitation status Full Code Advanced Directive on File Past Medical/Surgical History Past Medical/Surgical History: (1) Respiratory distress (2) Proteinuria (3) Acute renal failure (ARF) (4) Acute renal failure (5) UTI (urinary tract infection) (6) Aspiration pneumonia (7) Ethmoid sinusitis (8) Dehydration (9) Diabetes (10) Hypernatremia (11) Pneumonia (12) Respiratory failure (13) Severe sepsis (14) Anemia (15) Sepsis (16) Feeding by G-tube Review of Systems ROS Narrative unable to obtain given medical condition Physical Exam General Appearance: mild distress Lines, tubes and drains: other HEENT: mucous membranes moist Neck: other Respiratory/Chest: on vent Cardiovascular/Chest: tachycardia Abdomen: soft, decreased bowel sounds, distended Genitourinary/Rectal: other Extremities: normal inspection Skin Exam: warm/dry Neurologic: other Last 24 Hour Vital Signs Date Time Temp Pulse Resp B/P (MAP) Pulse Ox O2 Delivery O2 Flow Rate FiO2 02/27/19 21:00 108 24 91/46 (61) 100 02/27/19 20:35 108 30 30 02/27/19 20:30 109 26 110/65 (80) 100 02/27/19 20:00 Mechanical Ventilator 02/27/19 20:00 108 02/27/19 20:00 98.6 108 27 105/42 (63) 100 02/27/19 20:00 30 02/27/19 19:30 112 28 103/68 (80) 100 02/27/19 19:08 115 30 100 Mechanical Ventilator 30 02/27/19 19:00 112 33 30 02/27/19 19:00 114 24 119/93 (102) 100 02/27/19 19:00 114/93 02/27/19 18:59 112 33 99 Mechanical Ventilator 30 02/27/19 18:30 107/44 02/27/19 18:30 110 29 117/41 (66) 100 02/27/19 18:00 117/41 02/27/19 18:00 119 28 107/44 (65) 98 02/27/19 17:56 110/47 02/27/19 17:55 99/53 02/27/19 17:30 117 27 110/47 (68) 100 02/27/19 17:21 98 32 30 02/27/19 17:00 110/47 02/27/19 17:00 107 33 129/56 (80) 100 02/27/19 16:30 108 33 115/56 (75) 100 02/27/19 16:00 Mechanical Ventilator 02/27/19 16:00 98.6 111 33 91/51 (64) 100 02/27/19 16:00 98/51 02/27/19 16:00 110 02/27/19 16:00 30 02/27/19 15:30 111 27 98/51 (67) 100 02/27/19 15:08 111 34 100 Mechanical Ventilator 30 02/27/19 15:00 102/48 02/27/19 15:00 110 30 102/48 (66) 100 02/27/19 14:54 110 35 100 Mechanical Ventilator 30 02/27/19 14:54 110 35 30 02/27/19 14:30 104 22 100/53 (69) 100 02/27/19 14:30 100/53 02/27/19 14:00 109/48 02/27/19 14:00 110 23 109/48 (68) 100 02/27/19 13:30 99/58 02/27/19 13:30 104 18 99/58 (72) 100 02/27/19 13:15 107 26 98/53 (68) 100 02/27/19 13:01 105 36 30 02/27/19 13:00 116/49 02/27/19 13:00 105 31 106/49 (68) 100 02/27/19 12:45 107 29 107/84 (92) 100 02/27/19 12:45 106/49 02/27/19 12:30 107/84 02/27/19 12:30 111 27 93/51 (65) 100 02/27/19 12:15 93/51 02/27/19 12:00 30 02/27/19 12:00 Mechanical Ventilator 02/27/19 12:00 105/57 02/27/19 12:00 115 02/27/19 12:00 98.2 113 30 105/57 (73) 100 02/27/19 11:45 100/66 02/27/19 11:45 112 26 100/66 (77) 99 02/27/19 11:30 112 27 126/48 (74) 100 02/27/19 11:30 126/48 02/27/19 11:15 102/43 02/27/19 11:15 110 25 102/43 (62) 100 02/27/19 11:09 115 37 100 Mechanical Ventilator 30 02/27/19 11:01 109 34 100 Mechanical Ventilator 30 02/27/19 11:00 94/67 02/27/19 11:00 109 33 94/67 (76) 100 02/27/19 10:59 109 38 30 02/27/19 10:45 103 21 109/53 (71) 100 02/27/19 10:45 109/53 02/27/19 10:30 108 28 123/51 (75) 100 02/27/19 10:30 123/51 02/27/19 10:15 110/57 02/27/19 10:15 109 30 110/57 (74) 100 02/27/19 10:00 111 26 98/65 (76) 100 02/27/19 10:00 127/65 02/27/19 09:45 112 27 117/48 (71) 100 02/27/19 09:45 117/48 02/27/19 09:30 131/59 02/27/19 09:30 109 31 131/59 (83) 100 02/27/19 09:15 118 26 125/56 (79) 100 02/27/19 09:15 125/56 02/27/19 09:13 115 34 30 02/27/19 09:12 170 30 30 02/27/19 09:00 110 25 125/73 (90) 100 02/27/19 09:00 125/73 02/27/19 08:30 108 32 134/44 (74) 100 02/27/19 08:00 114 02/27/19 08:00 30 02/27/19 08:00 123/52 02/27/19 08:00 Mechanical Ventilator 02/27/19 08:00 100.0 113 28 123/52 (75) 98 02/27/19 07:30 114 34 104/44 (64) 100 02/27/19 07:19 112 33 100 Mechanical Ventilator 30 02/27/19 07:09 113 31 30 02/27/19 07:09 113 31 100 Mechanical Ventilator 30 02/27/19 07:00 110 30 95/40 (58) 98 02/27/19 06:57 103/45 02/27/19 06:45 110 30 97/30 (52) 98 02/27/19 06:30 110 30 95/40 (58) 98 02/27/19 06:00 110 30 99/40 (59) 98 02/27/19 06:00 82/35 02/27/19 05:45 110 30 94/43 (60) 98 02/27/19 05:30 110 30 94/43 (60) 98 02/27/19 05:18 109 30 30 02/27/19 05:15 110 30 96/43 (60) 98 02/27/19 05:00 113 32 103/65 (78) 98 02/27/19 05:00 95/60 02/27/19 04:45 111 30 110/43 (65) 98 02/27/19 04:30 113 29 112/43 (66) 98 02/27/19 04:15 115 22 115/65 (82) 98 02/27/19 04:00 112 02/27/19 04:00 98.6 115 22 82/64 (70) 98 02/27/19 04:00 Mechanical Ventilator 02/27/19 04:00 82/64 02/27/19 04:00 30 02/27/19 03:45 72/35 02/27/19 03:45 113 22 95/35 (55) 98 02/27/19 03:30 114 22 106/45 (65) 98 02/27/19 03:20 116 27 100 Mechanical Ventilator 30 02/27/19 03:15 115 20 100/35 (56) 98 02/27/19 03:10 114 37 100 Mechanical Ventilator 30 02/27/19 03:10 114 37 30 02/27/19 03:00 117 22 110/35 (60) 98 02/27/19 02:45 114 24 84/35 (51) 98 02/27/19 02:30 120 22 110/35 (60) 98 02/27/19 02:00 98.6 120 22 110/35 (60) 98 02/27/19 01:45 114 22 100/35 (56) 98 02/27/19 01:30 119 22 98/42 (60) 98 02/27/19 01:21 125 34 30 02/27/19 01:15 120 20 101/44 (63) 100 02/27/19 01:00 116 22 116/41 (66) 98 02/27/19 00:45 114 18 125/35 (65) 98 02/27/19 00:30 123 20 114/45 (68) 100 02/27/19 00:15 121 32 77/59 (65) 97 02/27/19 00:00 117 02/27/19 00:00 100.6 114 22 125/35 (65) 98 02/27/19 00:00 125/35 02/27/19 00:00 30 02/27/19 00:00 Mechanical Ventilator 02/26/19 23:45 113 22 110/41 (64) 97 02/26/19 23:30 96 21 112/36 (61) 100 02/26/19 23:21 101 29 100 Mechanical Ventilator 30 02/26/19 23:15 100 22 110/41 (64) 98 02/26/19 23:10 102 31 100 Mechanical Ventilator 30 02/26/19 23:09 102 31 30 02/26/19 23:00 102 30 100/45 (63) 100 02/26/19 23:00 110/41 02/26/19 22:45 102 32 84/36 (52) 99 02/26/19 22:30 96 30 92/36 (54) 100 02/26/19 22:15 99 30 97/34 (55) 100 02/26/19 22:00 99 30 96/39 (58) 100 02/26/19 22:00 96/30 02/26/19 21:45 98 30 100/40 (60) 100 Intake and Output 02/26/19 02/27/19 18:59 06:59 Intake Total 2414.075 ml 2632.575 ml Output Total 775 ml 2660 ml Balance 1639.075 ml -27.425 ml Free Water 200 ml 100 ml IV Total 1494.075 ml 1812.575 ml Tube Feeding 720 ml 720 ml Output Urine Total 775 ml 2660 ml Laboratory Tests Test 02/27/19 04:15 02/27/19 06:20 White Blood Count 17.1 K/UL (4.8-10.8) H Red Blood Count 2.74 M/UL (4.20-5.40) L Hemoglobin 8.8 G/DL (12.0-16.0) L Hematocrit 29.0 % (37.0-47.0) L Mean Corpuscular Volume 106 FL (80-99) H Mean Corpuscular Hemoglobin 32.2 PG (27.0-31.0) H Mean Corpuscular Hemoglobin Concent 30.3 G/DL (32.0-36.0) L Red Cell Distribution Width 16.0 % (11.6-14.8) H Platelet Count 93 K/UL (150-450) L Mean Platelet Volume 11.1 FL (6.5-10.1) H Neutrophils (%) (Auto) % (45.0-75.0) Lymphocytes (%) (Auto) % (20.0-45.0) Monocytes (%) (Auto) % (1.0-10.0) Eosinophils (%) (Auto) % (0.0-3.0) Basophils (%) (Auto) % (0.0-2.0) Differential Total Cells Counted 100 Neutrophils % (Manual) 88 % (45-75) H Lymphocytes % (Manual) 8 % (20-45) L Monocytes % (Manual) 4 % (1-10) Eosinophils % (Manual) 0 % (0-3) Basophils % (Manual) 0 % (0-2) Band Neutrophils 0 % (0-8) Platelet Estimate Decreased L Platelet Morphology Normal Anisocytosis 1+ Macrocytosis 1+ Sodium Level 147 MMOL/L (136-145) H Potassium Level 3.9 MMOL/L (3.5-5.1) Chloride Level 116 MMOL/L (98-107) H Carbon Dioxide Level 19 MMOL/L (21-32) L Anion Gap 12 mmol/L (5-15) Blood Urea Nitrogen 35 mg/dL (7-18) H Creatinine 1.8 MG/DL (0.55-1.30) H Estimat Glomerular Filtration Rate mL/min (>60) Glucose Level 272 MG/DL (74-106) H Lactic Acid Level 3.20 mmol/L (0.4-2.0) H 2.70 mmol/L (0.66-2.22) H Calcium Level 7.8 MG/DL (8.5-10.1) L Total Bilirubin 0.3 MG/DL (0.2-1.0) Direct Bilirubin < 0.1 MG/DL (0.0-0.3) Aspartate Amino Transf (AST/SGOT) 27 U/L (15-37) Alanine Aminotransferase (ALT/SGPT) 20 U/L (12-78) Alkaline Phosphatase 133 U/L (46-116) H Total Protein 5.8 G/DL (6.4-8.2) L Albumin 1.6 G/DL (3.4-5.0) L Height (Feet): 5 Height (Inches): 8.00 Weight (Pounds): 180 Medications Current Medications Medications (Trade) Dose Ordered Sig/Chandu Route PRN Reason Start Time Stop Time Status Last Admin Dose Admin Acetaminophen (Tylenol) 650 mg Q4H PRN GT Temp > 100.5 02/23/19 17:00 03/25/19 16:59 02/25/19 17:13 Albuterol/ Ipratropium (Albuterol/ Ipratropium) 3 ml Q4HRT HHN 02/23/19 15:00 02/28/19 14:59 02/27/19 18:59 Ascorbic Acid (Vitamin C) 500 mg DAILY ORAL 02/24/19 09:00 03/26/19 08:59 02/27/19 08:19 Atorvastatin Calcium (Lipitor) 10 mg BEDTIME ORAL 02/23/19 21:00 03/25/19 20:59 02/27/19 20:32 Bethanechol Chloride (Urecholine) 5 mg THREE TIMES A DAY ORAL 02/23/19 18:00 03/25/19 17:59 02/27/19 17:56 Chlorhexidine Gluconate (Sue-Hex 2%) 1 applic DAILY@2000 TOPIC 02/23/19 20:00 03/25/19 19:59 02/27/19 20:31 Dextrose (Dextrose 50%) 25 ml Q30M PRN IV Hypoglycemia 02/23/19 11:45 03/25/19 11:44 Dextrose (Dextrose 50%) 50 ml Q30M PRN IV Hypoglycemia 02/23/19 11:45 03/25/19 11:44 Docusate Sodium (Colace) 100 mg BID ORAL 02/27/19 09:00 03/29/19 08:59 02/27/19 17:56 Doxycycline Hyclate 100 mg/ Dextrose 110 ml @ 110 mls/hr Q12HR@0600,1800 IV 02/23/19 18:00 03/02/19 17:59 02/27/19 17:58 Fentanyl Citrate 1000 mcg/Sodium Chloride 100 ml @ 0 mls/hr Q24H IV 02/23/19 14:00 03/02/19 13:59 Insulin Aspart (NovoLOG) Q6HR SUBQ 02/26/19 18:00 03/25/19 15:29 02/27/19 17:57 Lactulose (Cephulac) 20 gm THREE TIMES A DAY ORAL 02/27/19 09:00 03/29/19 08:59 02/27/19 17:56 Memantine (Namenda) 10 mg Q12HR ORAL 02/23/19 21:00 03/25/19 20:59 02/27/19 20:32 Meropenem 1 gm/ Sodium Chloride 55 ml @ 110 mls/hr Q12HR@0600,1800 IVPB 02/24/19 18:00 03/01/19 17:59 02/27/19 17:58 Mineral Oil (Mineral Oil) 30 ml DAILYPRN PRN ORAL Constipation 02/25/19 16:42 03/27/19 16:41 02/25/19 17:13 Multivitamins (Multivitamins W/ Minerals 15ml Liquid) 15 ml DAILY GT 02/24/19 09:00 03/26/19 08:59 02/27/19 08:19 Norepinephrine Bitartrate 8 mg/ Dextrose 500 ml @ 0 mls/hr Q24H IV 02/24/19 23:00 03/26/19 22:59 02/27/19 17:56 Pantoprazole (Protonix) 40 mg DAILY IVP 02/24/19 09:00 03/26/19 08:59 02/27/19 08:19 Polyethylene Glycol (Miralax) 17 gm DAILYPRN PRN ORAL Constipation 02/23/19 12:15 03/25/19 12:14 02/26/19 08:04 Sodium Chloride 1,000 ml @ 75 mls/hr [id number] IV 02/27/19 11:00 03/29/19 10:59 02/27/19 11:10 Vancomycin HCl (Vanco rx to dose) 1 ea DAILY PRN MISC Per rx protocol 02/27/19 19:30 03/29/19 19:29 Vancomycin HCl/ Dextrose 275 ml @ 183.333 mls/hr ONCE IVPB 02/27/19 22:00 02/27/19 23:59 Assessment/Plan Problem List: (1) Fecal impaction Assessment & Plan: patient with fecal impaction KUB noted unable to improve with enema and g tube Rx recommend manual disimpaction with assistance of nursing staff patient was turned and manual disimpaction performed at bedside. significant fecal retention in rectum past what my finger could reach. stool soft and not hard. rectum cleared of stool cont with oral rx and enema will perform manual prn will follow with recs thank you ICD Codes: K56.41 - Fecal impaction SNOMED: 36815045 (2) Sepsis Assessment & Plan: leukocytosis lactic acidosis micro noted on vent support IV Abx as per ID will follow trend labs thank you ICD Codes: A41.9 - Sepsis, unspecified organism SNOMED: [id number] Helio Salgado Feb 27, 2019 21:43
[2019-02-27] MEDS ORDERED: Vancomycin 1.25gm Premix IVPB SCH (22:00)
--- NOTE | 2019-02-27 22:00 | NUR ---
NURSE NOTES: levo drip 10mcg /min with bp75-84/26
[2019-02-28] VITALS (47 sets, daily range): BP systolic 91–121; BP diastolic 31–70
--- NOTE | 2019-02-28 | NUR ---
NURSE NOTES: tube feeding off residul 100 cc levo drip at 12 mcg/hr
--- NOTE | 2019-02-28 02:00 | NUR ---
NURSE NOTES: asleep reposition and suction
[2019-02-28] MEDS: Albuterol/Ipratropium 3ml neb HHN SCH ×6 (02:01→23:18)
--- NOTE | 2019-02-28 04:00 | NUR ---
NURSE NOTES: had large bm normal stool complete bed bath oral care reposition and suction
[2019-02-28 05:18] LABS: HEMATOCRIT 27.5 % (37.0-47.0); HEMOGLOBIN 8.5 G/DL (12.0-16.0); MEAN CORPUSCULAR VOLUME 103 FL (80-99); PLATELET COUNT 122 K/UL (150-450); RED BLOOD COUNT 2.67 M/UL (4.20-5.40); RED CELL DISTRIBUTION WIDTH 15.9 % (11.6-14.8)
[2019-02-28] MEDS: Meropenem 1 GM in NS 55 ML IVPB SCH ×2 (05:31→18:15)
[2019-02-28] MEDS: NovoLOG Insulin Flexpen SUBQ SCH ×3 (05:32→18:14)
[2019-02-28] MEDS: Doxycycline Hyclate 100 MG in D5W 110 ML IV SCH (05:33)
[2019-02-28 05:37] LABS: ANION GAP 12 mmol/L (5-15); BLOOD UREA NITROGEN 34 mg/dL (7-18); CALCIUM 8.4 MG/DL (8.5-10.1); CARBON DIOXIDE 19 MMOL/L (21-32); CHLORIDE 119 MMOL/L (98-107); CREATININE 1.7 MG/DL (0.55-1.30); POTASSIUM 3.1 MMOL/L (3.5-5.1); SODIUM 150 MMOL/L (136-145)
--- NOTE | 2019-02-28 06:00 | NUR ---
NURSE NOTES: asleep levo drip at 12mcg /min tube feeding hold residual 80cc
--- NOTE | 2019-02-28 07:20 | NUR ---
NURSE NOTES: RECEIVED PATIENT FROM Conor WHEELER RN. PATIENT IS LYING IN BED, ASLEEP. HOOKED TO [facility]. ORALLY INTUBATED. ETT 7.0 AT 22CM LIP LINE. VENT SETTINGS OF AC 12, TV 400, FiO2 30%, PEEP 5. NO SIGNS OF CARDIO OR RESPI DISTRESS OF THE MOMENT. WITH CENTRAL LINE ON R IJ TLC IVF RUNNING D5 NS AT 75ML/HR AND LEVOPHED RUNNING AT 12MCG/MIN FOLLOWING HOSPITAL PROTOCOL. CALL LIGHT WITHIN REACH. BED AT LOWEST POSITION. SIDE RAILS UP. WILL CONTINUE TO MONITOR.
[2019-02-28] MEDS: Norepinephrine Bitartrate 8 MG in D5W 500ml 492 ML IV SCH ×2 (07:51→19:21)
--- NOTE | 2019-02-28 08:30 | NUR ---
NURSE NOTES: DR GILLILAND SEEN THE PATIENT. MADE AWARE OF ELECTROLYTES. WILL CONTINUE TO MONITOR.
--- NOTE | 2019-02-28 08:32 | Critical Care Progress Note ---
Assessment/Plan Assessment/Plan Impression: Pneumonia Severe sepsis Respiratory failure Dehydration Hypernatremia Ethmoid sinusitis Diabetes Acute renal failure leukocytosis protein calorie malnutrition Plan care noted IV antibiotics; monitor cultures and adjus respiratory care Ventilatory support supportive care as outlined suction as needed oxygen therapy prognosis guarded try to wean medications/laboratory data/nursing notes/ICU care reviewed in detail note reviewed and edited care discussed with RN and RT ICU time spent 40 minutes Critical Care - Subjective ROS Limited/Unobtainable: Yes Condition: critical EKG Rhythm: Sinus Rhythm Residuals: minimal Tube Feeding Tolerated: yes I&O: Intake and Output 02/27/19 02/28/19 19:00 07:00 Intake Total 1888.375 ml 1835.833 ml Output Total 1435 ml 1540 ml Balance 453.375 ml 295.833 ml Free Water 140 ml 80 ml IV Total 1298.375 ml 1635.833 ml Tube Feeding 450 ml 120 ml Output Urine Total 1435 ml 1540 ml # Bowel Movements 1 1 Critical Care - Objective ET-Tube: 7.0 ET Position: 22 Last 24 Hour Vital Signs Date Time Temp Pulse Resp B/P (MAP) Pulse Ox O2 Delivery O2 Flow Rate FiO2 02/28/19 07:57 108 30 99 Mechanical Ventilator 30 02/28/19 07:51 106/50 02/28/19 07:40 116 31 30 02/28/19 07:38 112 35 99 Mechanical Ventilator 30 02/28/19 07:00 117 30 110/70 (83) 100 02/28/19 07:00 110/64 02/28/19 06:30 117 30 108/45 (66) 100 02/28/19 06:00 117 30 108/45 (66) 100 02/28/19 06:00 108/45 02/28/19 05:30 115 30 118/49 (72) 100 02/28/19 05:06 116 31 30 02/28/19 05:00 118 31 115/46 (69) 100 02/28/19 05:00 115/46 02/28/19 04:30 115 32 102/53 (69) 100 02/28/19 04:00 Mechanical Ventilator 02/28/19 04:00 107/45 02/28/19 04:00 30 02/28/19 04:00 115 02/28/19 04:00 98.0 115 30 118/49 (72) 100 02/28/19 03:30 118 30 100/50 (67) 100 02/28/19 03:08 118 34 30 02/28/19 03:00 115 30 106/47 (66) 100 02/28/19 03:00 118/45 02/28/19 02:30 114 30 107/55 (72) 100 02/28/19 02:07 113 32 100 Mechanical Ventilator 30 02/28/19 02:01 114 31 100 Mechanical Ventilator 30 02/28/19 02:00 117 28 121/48 (72) 99 02/28/19 02:00 121/48 02/28/19 01:30 114 33 104/40 (61) 100 02/28/19 01:00 114 30 100/47 (64) 100 02/28/19 01:00 96/36 02/28/19 00:44 109 32 30 02/28/19 00:30 117 30 96/36 (56) 99 02/28/19 00:00 30 02/28/19 00:00 113/47 02/28/19 00:00 Mechanical Ventilator 02/28/19 00:00 118 02/28/19 00:00 98.6 117 30 113/47 (69) 100 02/27/19 23:30 119 32 110/50 (70) 100 02/27/19 23:00 101 27 106/50 (68) 100 02/27/19 23:00 106/50 02/27/19 22:52 108 30 100 Mechanical Ventilator 30 02/27/19 22:45 110 30 100 Mechanical Ventilator 30 02/27/19 22:45 106 31 30 02/27/19 22:30 107 27 100/45 (63) 100 02/27/19 22:02 106/50 02/27/19 22:00 85/40 02/27/19 22:00 101 27 85/40 (55) 100 02/27/19 21:30 107 26 87/40 (56) 100 02/27/19 21:00 115/47 02/27/19 21:00 108 24 91/46 (61) 100 02/27/19 20:35 108 30 30 02/27/19 20:30 109 26 110/65 (80) 100 02/27/19 20:00 Mechanical Ventilator 02/27/19 20:00 108 02/27/19 20:00 91/46 02/27/19 20:00 98.6 108 27 105/42 (63) 100 02/27/19 20:00 30 02/27/19 19:30 112 28 103/68 (80) 100 02/27/19 19:08 115 30 100 Mechanical Ventilator 30 02/27/19 19:00 112 33 30 02/27/19 19:00 114 24 119/93 (102) 100 02/27/19 19:00 114/93 02/27/19 18:59 112 33 99 Mechanical Ventilator 30 02/27/19 18:30 107/44 02/27/19 18:30 110 29 117/41 (66) 100 02/27/19 18:00 117/41 02/27/19 18:00 119 28 107/44 (65) 98 02/27/19 17:56 110/47 02/27/19 17:55 99/53 02/27/19 17:30 117 27 110/47 (68) 100 02/27/19 17:21 98 32 30 02/27/19 17:00 110/47 02/27/19 17:00 107 33 129/56 (80) 100 02/27/19 16:30 108 33 115/56 (75) 100 02/27/19 16:00 Mechanical Ventilator 02/27/19 16:00 98.6 111 33 91/51 (64) 100 02/27/19 16:00 98/51 02/27/19 16:00 110 02/27/19 16:00 30 02/27/19 15:30 111 27 98/51 (67) 100 02/27/19 15:08 111 34 100 Mechanical Ventilator 30 02/27/19 15:00 102/48 02/27/19 15:00 110 30 102/48 (66) 100 02/27/19 14:54 110 35 100 Mechanical Ventilator 30 02/27/19 14:54 110 35 30 02/27/19 14:30 104 22 100/53 (69) 100 02/27/19 14:30 100/53 02/27/19 14:00 109/48 02/27/19 14:00 110 23 109/48 (68) 100 02/27/19 13:30 99/58 02/27/19 13:30 104 18 99/58 (72) 100 02/27/19 13:15 107 26 98/53 (68) 100 02/27/19 13:01 105 36 30 02/27/19 13:00 116/49 02/27/19 13:00 105 31 106/49 (68) 100 02/27/19 12:45 107 29 107/84 (92) 100 02/27/19 12:45 106/49 02/27/19 12:30 107/84 02/27/19 12:30 111 27 93/51 (65) 100 02/27/19 12:15 93/51 02/27/19 12:00 30 02/27/19 12:00 Mechanical Ventilator 02/27/19 12:00 105/57 02/27/19 12:00 115 02/27/19 12:00 98.2 113 30 105/57 (73) 100 02/27/19 11:45 100/66 02/27/19 11:45 112 26 100/66 (77) 99 02/27/19 11:30 112 27 126/48 (74) 100 02/27/19 11:30 126/48 02/27/19 11:15 102/43 02/27/19 11:15 110 25 102/43 (62) 100 02/27/19 11:09 115 37 100 Mechanical Ventilator 30 02/27/19 11:01 109 34 100 Mechanical Ventilator 30 02/27/19 11:00 94/67 02/27/19 11:00 109 33 94/67 (76) 100 02/27/19 10:59 109 38 30 02/27/19 10:45 103 21 109/53 (71) 100 02/27/19 10:45 109/53 02/27/19 10:30 108 28 123/51 (75) 100 02/27/19 10:30 123/51 02/27/19 10:15 110/57 02/27/19 10:15 109 30 110/57 (74) 100 02/27/19 10:00 111 26 98/65 (76) 100 02/27/19 10:00 127/65 02/27/19 09:45 112 27 117/48 (71) 100 02/27/19 09:45 117/48 02/27/19 09:30 131/59 02/27/19 09:30 109 31 131/59 (83) 100 02/27/19 09:15 118 26 125/56 (79) 100 02/27/19 09:15 125/56 02/27/19 09:13 115 34 30 02/27/19 09:12 170 30 30 02/27/19 09:00 110 25 125/73 (90) 100 02/27/19 09:00 125/73 Labs: Laboratory Tests Test 02/28/19 04:10 02/28/19 05:20 White Blood Count 16.0 K/UL (4.8-10.8) H Red Blood Count 2.67 M/UL (4.20-5.40) L Hemoglobin 8.5 G/DL (12.0-16.0) L Hematocrit 27.5 % (37.0-47.0) L Mean Corpuscular Volume 103 FL (80-99) H Mean Corpuscular Hemoglobin 31.7 PG (27.0-31.0) H Mean Corpuscular Hemoglobin Concent 30.9 G/DL (32.0-36.0) L Red Cell Distribution Width 15.9 % (11.6-14.8) H Platelet Count 122 K/UL (150-450) L Mean Platelet Volume 11.1 FL (6.5-10.1) H Neutrophils (%) (Auto) % (45.0-75.0) Lymphocytes (%) (Auto) % (20.0-45.0) Monocytes (%) (Auto) % (1.0-10.0) Eosinophils (%) (Auto) % (0.0-3.0) Basophils (%) (Auto) % (0.0-2.0) Neutrophils % (Manual) Pending Lymphocytes % (Manual) Pending Platelet Estimate Pending Platelet Morphology Pending Sodium Level 150 MMOL/L (136-145) H Potassium Level 3.1 MMOL/L (3.5-5.1) L Chloride Level 119 MMOL/L (98-107) H Carbon Dioxide Level 19 MMOL/L (21-32) L Anion Gap 12 mmol/L (5-15) Blood Urea Nitrogen 34 mg/dL (7-18) H Creatinine 1.7 MG/DL (0.55-1.30) H Estimat Glomerular Filtration Rate mL/min (>60) Glucose Level 164 MG/DL (74-106) #H Lactic Acid Level 2.40 mmol/L (0.4-2.0) H 2.60 mmol/L (0.66-2.22) H Calcium Level 8.4 MG/DL (8.5-10.1) L Objective: WDWN on vent ETT in place clear breath sounds bilaterally without rhonchi or wheeze [id number] without MRG NABS nontender no HSM no CCE sedated Micro: Microbiology Date/Time Source Procedure Growth Status 02/25/19 18:35 Blood Blood Culture - Preliminary NO GROWTH AFTER 48 HOURS Resulted 02/25/19 18:30 Blood Blood Culture - Preliminary NO GROWTH AFTER 48 HOURS Resulted Accucheck: 191 Agustin Nelson MD Feb 28, 2019 08:32
[2019-02-28] MEDS: Pantoprazole Inj IVP SCH (08:52)
[2019-02-28] MEDS: Memantine 10mg tab ORAL SCH ×2 (08:53→21:05)
[2019-02-28] MEDS: Ascorbic Acid 500mg tab ORAL SCH (08:53)
[2019-02-28] MEDS: Multivitamins W/Minerals 15 ML UDC GT SCH (08:53)
[2019-02-28] MEDS: Bethanechol 10mg Tab ORAL SCH ×3 (08:53→18:15)
--- NOTE | 2019-02-28 08:55 | NUR ---
RESPIRATORY NOTE: Received pt on AC 12-400VT, 30%, PEEP +5. Pt orally intubated with ETT 7.0 @ 22cm lipline, secured by anchor fast. Pt awake but unable to follow commands .Bhanu rhonchi diminished breath sounds heard upon auscultation, sxn small amounts of thick/ thin brown wyatt secretions without incidents. Vent plugged into red outlet, alarms are set and audible, ambu bag at bedside. Vent circuits and sxn tubing are secured and out of the way. Pt resting comfortably, in no apparent distress at this time. Placed pt on CPAP PS , peep 5. 30% FiO2 per weaning protocol. Shallow tachypneic RR 33 bpm but Pt is tolerating well, no SOB or resp distress noted ( Pt already tachypneic on AC mode RR 30-35bpm). RSBI 79, NIF -27. DAKOTA Lowe at bedside and made aware. Will continue to monitor pt.
[2019-02-28] MEDS: Docusate 100mg tablet ORAL SCH ×2 (09:00→17:59)
[2019-02-28] MEDS: Lactulose 20gm/30ml UDC ORAL SCH ×3 (09:00→17:59)
--- NOTE | 2019-02-28 10:30 | NUR ---
NURSE NOTES: TOLERATING CPAP ON PS 8. NOTED INCREASED RR. NO SIGNS OF DISTRESS OF THE MOMENT. PATIEN KEPT CLEAN AND DRY. NOTED LOOSE BM. WILL CONTINUE TO MONITOR.
--- NOTE | 2019-02-28 11:01 | NUR ---
NURSE NOTES: DR BROCK MADE AWARE OF ABN ELECTROLYTES WITH NEW ORDERS MADE. INFORMED DR GILLILAND OF ABG RESULT WHILE PT ON CPAP, PS 8, PEEP 5. AWAITING FOR CALL BACK. WILL CONTINUE TO MONITOR.
--- NOTE | 2019-02-28 11:06 | NUR ---
NURSE NOTES: DR GILLILAND ORDERED TO EXTUBATE PATIENT. RT MADE AWARE. WILL CONTINUE TO MONITOR.
--- NOTE | 2019-02-28 11:57 | General Progress Note ---
Assessment/Plan Status: stable Assessment/Plan: (1) Feeding by G-tube (2) Diabetes (3) Anemia (4) Sepsis (5) Respiratory failure GTF on hold for possible extubation fu H&H ppi daily respiratory care ABX s/p disimpaction had BM Subjective ROS Limited/Unobtainable: No Allergies: Coded Allergies: SULFA (SULFONAMIDE ANTIBIOTICS) (Unverified Allergy, Unknown, 09/30/18) COPIED FROM UNCODED Uncoded Allergies: SULFA (Allergy, Unknown, 11/20/18) Objective Last 24 Hour Vital Signs Date Time Temp Pulse Resp B/P (MAP) Pulse Ox O2 Delivery O2 Flow Rate FiO2 02/28/19 11:05 108 30 99 Mechanical Ventilator 30 02/28/19 10:58 107 30 99 Mechanical Ventilator 30 02/28/19 10:33 108 30 30 02/28/19 10:30 105 27 112/38 (62) 99 02/28/19 10:00 115/39 02/28/19 10:00 107 30 115/39 (64) 99 02/28/19 09:30 110 29 104/31 (55) 99 02/28/19 09:00 110/43 02/28/19 09:00 112 29 110/43 (65) 99 02/28/19 08:55 109 33 30 30 02/28/19 08:55 100 02/28/19 08:55 30 02/28/19 08:30 111 30 116/48 (70) 100 02/28/19 08:00 Mechanical Ventilator 02/28/19 08:00 99.1 112 29 99/51 (67) 100 02/28/19 08:00 99/51 02/28/19 08:00 30 02/28/19 07:57 108 30 99 Mechanical Ventilator 30 02/28/19 07:51 106/50 02/28/19 07:40 116 31 30 02/28/19 07:38 112 35 99 Mechanical Ventilator 30 02/28/19 07:30 107 25 106/50 (68) 100 02/28/19 07:00 117 30 110/70 (83) 100 02/28/19 07:00 110/64 02/28/19 06:30 117 30 108/45 (66) 100 02/28/19 06:00 117 30 108/45 (66) 100 02/28/19 06:00 108/45 02/28/19 05:30 115 30 118/49 (72) 100 02/28/19 05:06 116 31 30 02/28/19 05:00 118 31 115/46 (69) 100 02/28/19 05:00 115/46 02/28/19 04:30 115 32 102/53 (69) 100 02/28/19 04:00 Mechanical Ventilator 02/28/19 04:00 107/45 02/28/19 04:00 30 02/28/19 04:00 115 02/28/19 04:00 98.0 115 30 118/49 (72) 100 02/28/19 03:30 118 30 100/50 (67) 100 02/28/19 03:08 118 34 30 02/28/19 03:00 115 30 106/47 (66) 100 02/28/19 03:00 118/45 02/28/19 02:30 114 30 107/55 (72) 100 02/28/19 02:07 113 32 100 Mechanical Ventilator 30 02/28/19 02:01 114 31 100 Mechanical Ventilator 30 02/28/19 02:00 117 28 121/48 (72) 99 02/28/19 02:00 121/48 02/28/19 01:30 114 33 104/40 (61) 100 02/28/19 01:00 114 30 100/47 (64) 100 02/28/19 01:00 96/36 02/28/19 00:44 109 32 30 02/28/19 00:30 117 30 96/36 (56) 99 02/28/19 00:00 30 02/28/19 00:00 113/47 02/28/19 00:00 Mechanical Ventilator 02/28/19 00:00 118 02/28/19 00:00 98.6 117 30 113/47 (69) 100 02/27/19 23:30 119 32 110/50 (70) 100 02/27/19 23:00 101 27 106/50 (68) 100 02/27/19 23:00 106/50 02/27/19 22:52 108 30 100 Mechanical Ventilator 30 02/27/19 22:45 110 30 100 Mechanical Ventilator 30 02/27/19 22:45 106 31 30 02/27/19 22:30 107 27 100/45 (63) 100 02/27/19 22:02 106/50 02/27/19 22:00 85/40 02/27/19 22:00 101 27 85/40 (55) 100 02/27/19 21:30 107 26 87/40 (56) 100 02/27/19 21:00 115/47 02/27/19 21:00 108 24 91/46 (61) 100 02/27/19 20:35 108 30 30 02/27/19 20:30 109 26 110/65 (80) 100 02/27/19 20:00 Mechanical Ventilator 02/27/19 20:00 108 02/27/19 20:00 91/46 02/27/19 20:00 98.6 108 27 105/42 (63) 100 02/27/19 20:00 30 02/27/19 19:30 112 28 103/68 (80) 100 02/27/19 19:08 115 30 100 Mechanical Ventilator 30 02/27/19 19:00 112 33 30 02/27/19 19:00 114 24 119/93 (102) 100 02/27/19 19:00 114/93 02/27/19 18:59 112 33 99 Mechanical Ventilator 30 02/27/19 18:30 107/44 02/27/19 18:30 110 29 117/41 (66) 100 02/27/19 18:00 117/41 02/27/19 18:00 119 28 107/44 (65) 98 02/27/19 17:56 110/47 02/27/19 17:55 99/53 02/27/19 17:30 117 27 110/47 (68) 100 02/27/19 17:21 98 32 30 02/27/19 17:00 110/47 02/27/19 17:00 107 33 129/56 (80) 100 02/27/19 16:30 108 33 115/56 (75) 100 02/27/19 16:00 Mechanical Ventilator 02/27/19 16:00 98.6 111 33 91/51 (64) 100 02/27/19 16:00 98/51 02/27/19 16:00 110 02/27/19 16:00 30 02/27/19 15:30 111 27 98/51 (67) 100 02/27/19 15:08 111 34 100 Mechanical Ventilator 30 02/27/19 15:00 102/48 02/27/19 15:00 110 30 102/48 (66) 100 02/27/19 14:54 110 35 100 Mechanical Ventilator 30 02/27/19 14:54 110 35 30 02/27/19 14:30 104 22 100/53 (69) 100 02/27/19 14:30 100/53 02/27/19 14:00 109/48 02/27/19 14:00 110 23 109/48 (68) 100 02/27/19 13:30 99/58 02/27/19 13:30 104 18 99/58 (72) 100 02/27/19 13:15 107 26 98/53 (68) 100 02/27/19 13:01 105 36 30 02/27/19 13:00 116/49 02/27/19 13:00 105 31 106/49 (68) 100 02/27/19 12:45 107 29 107/84 (92) 100 02/27/19 12:45 106/49 02/27/19 12:30 107/84 02/27/19 12:30 111 27 93/51 (65) 100 02/27/19 12:15 93/51 02/27/19 12:00 30 02/27/19 12:00 Mechanical Ventilator 02/27/19 12:00 105/57 02/27/19 12:00 115 02/27/19 12:00 98.2 113 30 105/57 (73) 100 Intake and Output 02/27/19 02/28/19 19:00 07:00 Intake Total 1888.375 ml 1835.833 ml Output Total 1435 ml 1590 ml Balance 453.375 ml 245.833 ml Free Water 140 ml 80 ml IV Total 1298.375 ml 1635.833 ml Tube Feeding 450 ml 120 ml Output Urine Total 1435 ml 1590 ml # Bowel Movements 1 1 Laboratory Tests 02/28/19 04:10: White Blood Count 16.0H, Red Blood Count 2.67L, Hemoglobin 8.5L, Hematocrit 27.5L, Mean Corpuscular Volume 103H, Mean Corpuscular Hemoglobin 31.7H, Mean Corpuscular Hemoglobin Concent 30.9L, Red Cell Distribution Width 15.9H, Platelet Count 122L, Mean Platelet Volume 11.1H, Neutrophils (%) (Auto) , Lymphocytes (%) (Auto) , Monocytes (%) (Auto) , Eosinophils (%) (Auto) , Basophils (%) (Auto) , Differential Total Cells Counted 100, Neutrophils % ( Manual) 86H, Lymphocytes % (Manual) 12L, Monocytes % (Manual) 2, Eosinophils % ( Manual) 0, Basophils % (Manual) 0, Band Neutrophils 0, Nucleated Red Blood Cells 1, Platelet Estimate DecreasedL, Platelet Morphology Normal, Hypochromasia 2+, Anisocytosis 1+, Macrocytosis 1+, Sodium Level 150H, Potassium Level 3.1L, Chloride Level 119H, Carbon Dioxide Level 19L, Anion Gap 12, Blood Urea Nitrogen 34H, Creatinine 1.7H, Estimat Glomerular Filtration Rate , Glucose Level 164#H, Lactic Acid Level 2.40H, Calcium Level 8.4L 02/28/19 05:20: Lactic Acid Level 2.60H 02/28/19 10:33: Arterial Blood pH 7.362, Arterial Blood Partial Pressure CO2 28.7L, Arterial Blood Partial Pressure O2 109.6H, Arterial Blood HCO3 15.9*L, Arterial Blood Oxygen Saturation 97.8, Arterial Blood Base Excess -8.5L, Cam Test Positive Height (Feet): 5 Height (Inches): 8.00 Weight (Pounds): 196 General Appearance: no apparent distress EENT: normal ENT inspection Neck: supple Cardiovascular: normal rate Respiratory/Chest: decreased breath sounds Abdomen: normal bowel sounds, non tender, soft Extremities: non-tender Ramos Rutledge MD Feb 28, 2019 11:57
--- NOTE | 2019-02-28 12:20 | NUR ---
INSURANCE UPDATED CLINICALS and REVIEW HAVE BEEN FAXED PLEASE FAX THE REVIEW AND CLINICAL TO: [facility]: [place] P:[phone] EXT [id number] FAX: [phone] (FAX CLINICALS)
--- NOTE | 2019-02-28 12:25 | Nephrology Progress Note ---
Assessment/Plan Status: stable Assessment/Plan: A/P 1) Septic Shock- Elevated WBC improving. - Abx mgmt per ID. 2/ PNA - levophed restarted MAp >60 mmHg 2) Resp FL- mgmt per Dr Ashton. Possible extubation 3) Hypernatremia- improved 171---164---157---147--150 - change IVFs to D5W 4) NAOMY- Cr and BUN much improved. 34/1.7 5) E- ABN- replace K+/Mg Phos as needed 6) DVT prophylaxis- with SCDs Subjective Date patient seen: Feb 28, 2019 Time patient seen: 12:23 ROS Limited/Unobtainable: Yes Allergies: Coded Allergies: SULFA (SULFONAMIDE ANTIBIOTICS) (Unverified Allergy, Unknown, 09/30/18) COPIED FROM UNCODED Uncoded Allergies: SULFA (Allergy, Unknown, 11/20/18) Subjective Patient remains intubated on ventilator but more awake and possible extubation today Objective Last 24 Hour Vital Signs Date Time Temp Pulse Resp B/P (MAP) Pulse Ox O2 Delivery O2 Flow Rate FiO2 02/28/19 11:05 108 30 99 Mechanical Ventilator 30 02/28/19 10:58 107 30 99 Mechanical Ventilator 30 02/28/19 10:33 108 30 30 02/28/19 10:30 105 27 112/38 (62) 99 02/28/19 10:00 115/39 02/28/19 10:00 107 30 115/39 (64) 99 02/28/19 09:30 110 29 104/31 (55) 99 02/28/19 09:00 110/43 02/28/19 09:00 112 29 110/43 (65) 99 02/28/19 08:55 109 33 30 30 02/28/19 08:55 100 02/28/19 08:55 30 02/28/19 08:30 111 30 116/48 (70) 100 02/28/19 08:00 Mechanical Ventilator 02/28/19 08:00 99.1 112 29 99/51 (67) 100 02/28/19 08:00 99/51 02/28/19 08:00 30 02/28/19 07:57 108 30 99 Mechanical Ventilator 30 02/28/19 07:51 106/50 02/28/19 07:40 116 31 30 02/28/19 07:38 112 35 99 Mechanical Ventilator 30 02/28/19 07:30 107 25 106/50 (68) 100 02/28/19 07:00 117 30 110/70 (83) 100 02/28/19 07:00 110/64 02/28/19 06:30 117 30 108/45 (66) 100 02/28/19 06:00 117 30 108/45 (66) 100 02/28/19 06:00 108/45 02/28/19 05:30 115 30 118/49 (72) 100 02/28/19 05:06 116 31 30 02/28/19 05:00 118 31 115/46 (69) 100 02/28/19 05:00 115/46 02/28/19 04:30 115 32 102/53 (69) 100 02/28/19 04:00 Mechanical Ventilator 02/28/19 04:00 107/45 02/28/19 04:00 30 02/28/19 04:00 115 02/28/19 04:00 98.0 115 30 118/49 (72) 100 02/28/19 03:30 118 30 100/50 (67) 100 02/28/19 03:08 118 34 30 02/28/19 03:00 115 30 106/47 (66) 100 02/28/19 03:00 118/45 02/28/19 02:30 114 30 107/55 (72) 100 02/28/19 02:07 113 32 100 Mechanical Ventilator 30 02/28/19 02:01 114 31 100 Mechanical Ventilator 30 02/28/19 02:00 117 28 121/48 (72) 99 02/28/19 02:00 121/48 02/28/19 01:30 114 33 104/40 (61) 100 02/28/19 01:00 114 30 100/47 (64) 100 02/28/19 01:00 96/36 02/28/19 00:44 109 32 30 02/28/19 00:30 117 30 96/36 (56) 99 02/28/19 00:00 30 02/28/19 00:00 113/47 02/28/19 00:00 Mechanical Ventilator 02/28/19 00:00 118 02/28/19 00:00 98.6 117 30 113/47 (69) 100 02/27/19 23:30 119 32 110/50 (70) 100 02/27/19 23:00 101 27 106/50 (68) 100 02/27/19 23:00 106/50 02/27/19 22:52 108 30 100 Mechanical Ventilator 30 02/27/19 22:45 110 30 100 Mechanical Ventilator 30 02/27/19 22:45 106 31 30 02/27/19 22:30 107 27 100/45 (63) 100 02/27/19 22:02 106/50 02/27/19 22:00 85/40 02/27/19 22:00 101 27 85/40 (55) 100 02/27/19 21:30 107 26 87/40 (56) 100 02/27/19 21:00 115/47 02/27/19 21:00 108 24 91/46 (61) 100 02/27/19 20:35 108 30 30 02/27/19 20:30 109 26 110/65 (80) 100 02/27/19 20:00 Mechanical Ventilator 02/27/19 20:00 108 02/27/19 20:00 91/46 02/27/19 20:00 98.6 108 27 105/42 (63) 100 02/27/19 20:00 30 02/27/19 19:30 112 28 103/68 (80) 100 02/27/19 19:08 115 30 100 Mechanical Ventilator 30 02/27/19 19:00 112 33 30 02/27/19 19:00 114 24 119/93 (102) 100 02/27/19 19:00 114/93 02/27/19 18:59 112 33 99 Mechanical Ventilator 30 02/27/19 18:30 107/44 02/27/19 18:30 110 29 117/41 (66) 100 02/27/19 18:00 117/41 02/27/19 18:00 119 28 107/44 (65) 98 02/27/19 17:56 110/47 02/27/19 17:55 99/53 02/27/19 17:30 117 27 110/47 (68) 100 02/27/19 17:21 98 32 30 02/27/19 17:00 110/47 02/27/19 17:00 107 33 129/56 (80) 100 02/27/19 16:30 108 33 115/56 (75) 100 02/27/19 16:00 Mechanical Ventilator 02/27/19 16:00 98.6 111 33 91/51 (64) 100 02/27/19 16:00 98/51 02/27/19 16:00 110 02/27/19 16:00 30 02/27/19 15:30 111 27 98/51 (67) 100 02/27/19 15:08 111 34 100 Mechanical Ventilator 30 02/27/19 15:00 102/48 02/27/19 15:00 110 30 102/48 (66) 100 02/27/19 14:54 110 35 100 Mechanical Ventilator 30 02/27/19 14:54 110 35 30 02/27/19 14:30 104 22 100/53 (69) 100 02/27/19 14:30 100/53 02/27/19 14:00 109/48 02/27/19 14:00 110 23 109/48 (68) 100 02/27/19 13:30 99/58 02/27/19 13:30 104 18 99/58 (72) 100 02/27/19 13:15 107 26 98/53 (68) 100 02/27/19 13:01 105 36 30 02/27/19 13:00 116/49 02/27/19 13:00 105 31 106/49 (68) 100 02/27/19 12:45 107 29 107/84 (92) 100 02/27/19 12:45 106/49 02/27/19 12:30 107/84 02/27/19 12:30 111 27 93/51 (65) 100 Intake and Output 02/27/19 02/28/19 19:00 07:00 Intake Total 1888.375 ml 1835.833 ml Output Total 1435 ml 1590 ml Balance 453.375 ml 245.833 ml Free Water 140 ml 80 ml IV Total 1298.375 ml 1635.833 ml Tube Feeding 450 ml 120 ml Output Urine Total 1435 ml 1590 ml # Bowel Movements 1 1 Laboratory Tests 02/28/19 04:10: White Blood Count 16.0H, Red Blood Count 2.67L, Hemoglobin 8.5L, Hematocrit 27.5L, Mean Corpuscular Volume 103H, Mean Corpuscular Hemoglobin 31.7H, Mean Corpuscular Hemoglobin Concent 30.9L, Red Cell Distribution Width 15.9H, Platelet Count 122L, Mean Platelet Volume 11.1H, Neutrophils (%) (Auto) , Lymphocytes (%) (Auto) , Monocytes (%) (Auto) , Eosinophils (%) (Auto) , Basophils (%) (Auto) , Differential Total Cells Counted 100, Neutrophils % ( Manual) 86H, Lymphocytes % (Manual) 12L, Monocytes % (Manual) 2, Eosinophils % ( Manual) 0, Basophils % (Manual) 0, Band Neutrophils 0, Nucleated Red Blood Cells 1, Platelet Estimate DecreasedL, Platelet Morphology Normal, Hypochromasia 2+, Anisocytosis 1+, Macrocytosis 1+, Sodium Level 150H, Potassium Level 3.1L, Chloride Level 119H, Carbon Dioxide Level 19L, Anion Gap 12, Blood Urea Nitrogen 34H, Creatinine 1.7H, Estimat Glomerular Filtration Rate , Glucose Level 164#H, Lactic Acid Level 2.40H, Calcium Level 8.4L 02/28/19 05:20: Lactic Acid Level 2.60H 02/28/19 10:33: Arterial Blood pH 7.362, Arterial Blood Partial Pressure CO2 28.7L, Arterial Blood Partial Pressure O2 109.6H, Arterial Blood HCO3 15.9*L, Arterial Blood Oxygen Saturation 97.8, Arterial Blood Base Excess -8.5L, Cam Test Positive Height (Feet): 5 Height (Inches): 8.00 Weight (Pounds): 196 General Appearance: no apparent distress, alert EENT: normal ENT inspection Neck: normal alignment, supple Cardiovascular: normal rate, regular rhythm Respiratory/Chest: rhonchi - bilaterally Abdomen: non tender, soft Edema: no edema noted Arm (L), no edema noted Arm (R), no edema noted Leg (L), no edema noted Leg (R), no edema noted Pedal (L), no edema noted Pedal (R), no edema noted Generalized Jakub García MD Feb 28, 2019 12:25
--- NOTE | 2019-02-28 12:30 | NUR ---
NURSE NOTES: SEEN AND EXAMINED BY DR BROCK. EXTUBATE PATIENT. ON COOL AEROSOL. NO SIGNS OF DISTRESS. NOTED THICK SECRETIONS. WILL CONTINUE TO MONITOR.
--- NOTE | 2019-02-28 12:30 | NUR ---
RESPIRATORY NOTE: Extubated pt per Dr. Nelson's order. Placed pt on cool aerosol 6L 28% FiO2, pt tolerating well. No stridor heard upon extubation. ADKOTA Lowe at bedside and made aware. Vital signs are in normal range. No SOB or resp distress noted. Will continue to monitor.
--- NOTE | 2019-02-28 12:57 | NUR ---
NURSE NOTES: 1ST BAG OF POTASSIUM WAS GIVEN BUT WASN'T ABLE TO SAVE INSTEAD ADMIN MANUALLY IN EMAR.
--- NOTE | 2019-02-28 14:20 | NUR ---
NURSE NOTES: PATIENT TOLERATED COOL AEROSOL. SATING AT 99-100%. NO SIGNS OF CARDIO OR RESPI DISTRESS OF THE MOMENT. WILL CONTINUE TO MONITOR.
--- NOTE | 2019-02-28 15:19 | NUR ---
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 98.9 HR 116 RR 29 B/P 95/57 VM 30% WBC 16.0 NA 150 K 3.1 BUN 34 CR 1.7 LACTID ACID 2.60 IS: IVF D5@75ML/HR MEROPENEM IV LEVOPHED GTT DOXYCYCLINE IV ICU STATUS
--- NOTE | 2019-02-28 15:54 | NUR ---
NURSE NOTES: CHANGED CENTRAL LINE DRESSING. PATIENT NOTED TO BE PULLING THE MASK ON AND OFF. SATING BETWEEN 90-100%. NO SIGNS OF DISTRESS OF THE MOMENT. WILL CONTINUE TO MONITOR.
--- NOTE | 2019-02-28 16:18 | Surgery Progress Note ---
Surgery Progress Note Subjective Additional Comments labs improving exam stable on vent. weaning trial attempted +BM Objective Last 24 Hour Vital Signs Date Time Temp Pulse Resp B/P (MAP) Pulse Ox O2 Delivery O2 Flow Rate FiO2 02/28/19 15:30 99 32 91/42 (58) 100 02/28/19 15:15 105 28 99 Cool Aerosol 6.0 28 02/28/19 15:07 103 26 97 Cool Aerosol 6.0 28 02/28/19 15:00 100 25 108/47 (67) 94 02/28/19 15:00 108/51 02/28/19 14:30 100 26 108/51 (70) 96 02/28/19 14:00 103 26 108/47 (67) 99 02/28/19 14:00 108/47 02/28/19 14:00 20 Room Air 02/28/19 13:30 100 25 108/47 (67) 99 02/28/19 13:00 104 27 103/46 (65) 97 02/28/19 13:00 103/46 02/28/19 12:30 Venturi Mask 6.0 100 02/28/19 12:30 Simple Mask 6.0 02/28/19 12:30 116 24 95/57 (70) 99 02/28/19 12:00 98.9 109 29 103/41 (61) 100 02/28/19 12:00 109 02/28/19 12:00 95/57 02/28/19 12:00 Mechanical Ventilator 02/28/19 12:00 30 02/28/19 11:05 108 30 99 Mechanical Ventilator 30 02/28/19 11:00 107/43 02/28/19 11:00 108 30 107/43 (64) 100 02/28/19 10:58 107 30 99 Mechanical Ventilator 30 02/28/19 10:33 108 30 30 02/28/19 10:30 105 27 112/38 (62) 99 02/28/19 10:00 115/39 02/28/19 10:00 107 30 115/39 (64) 99 02/28/19 09:30 110 29 104/31 (55) 99 02/28/19 09:00 110/43 02/28/19 09:00 112 29 110/43 (65) 99 02/28/19 08:55 109 33 30 30 02/28/19 08:55 100 02/28/19 08:55 30 02/28/19 08:30 111 30 116/48 (70) 100 02/28/19 08:00 Mechanical Ventilator 02/28/19 08:00 99.1 112 29 99/51 (67) 100 02/28/19 08:00 109 02/28/19 08:00 99/51 02/28/19 08:00 30 02/28/19 07:57 108 30 99 Mechanical Ventilator 30 02/28/19 07:51 106/50 02/28/19 07:40 116 31 30 02/28/19 07:38 112 35 99 Mechanical Ventilator 30 02/28/19 07:30 107 25 106/50 (68) 100 02/28/19 07:00 117 30 110/70 (83) 100 02/28/19 07:00 110/64 02/28/19 06:30 117 30 108/45 (66) 100 02/28/19 06:00 117 30 108/45 (66) 100 02/28/19 06:00 108/45 02/28/19 05:30 115 30 118/49 (72) 100 02/28/19 05:06 116 31 30 02/28/19 05:00 118 31 115/46 (69) 100 02/28/19 05:00 115/46 02/28/19 04:30 115 32 102/53 (69) 100 02/28/19 04:00 Mechanical Ventilator 02/28/19 04:00 107/45 02/28/19 04:00 30 02/28/19 04:00 115 02/28/19 04:00 98.0 115 30 118/49 (72) 100 02/28/19 03:30 118 30 100/50 (67) 100 02/28/19 03:08 118 34 30 02/28/19 03:00 115 30 106/47 (66) 100 02/28/19 03:00 118/45 02/28/19 02:30 114 30 107/55 (72) 100 02/28/19 02:07 113 32 100 Mechanical Ventilator 30 02/28/19 02:01 114 31 100 Mechanical Ventilator 30 02/28/19 02:00 117 28 121/48 (72) 99 02/28/19 02:00 121/48 02/28/19 01:30 114 33 104/40 (61) 100 02/28/19 01:00 114 30 100/47 (64) 100 02/28/19 01:00 96/36 02/28/19 00:44 109 32 30 02/28/19 00:30 117 30 96/36 (56) 99 02/28/19 00:00 30 02/28/19 00:00 113/47 02/28/19 00:00 Mechanical Ventilator 02/28/19 00:00 118 02/28/19 00:00 98.6 117 30 113/47 (69) 100 02/27/19 23:30 119 32 110/50 (70) 100 02/27/19 23:00 101 27 106/50 (68) 100 02/27/19 23:00 106/50 02/27/19 22:52 108 30 100 Mechanical Ventilator 30 02/27/19 22:45 110 30 100 Mechanical Ventilator 30 02/27/19 22:45 106 31 30 02/27/19 22:30 107 27 100/45 (63) 100 02/27/19 22:02 106/50 02/27/19 22:00 85/40 02/27/19 22:00 101 27 85/40 (55) 100 02/27/19 21:30 107 26 87/40 (56) 100 02/27/19 21:00 115/47 02/27/19 21:00 108 24 91/46 (61) 100 02/27/19 20:35 108 30 30 02/27/19 20:30 109 26 110/65 (80) 100 02/27/19 20:00 Mechanical Ventilator 02/27/19 20:00 108 02/27/19 20:00 91/46 02/27/19 20:00 98.6 108 27 105/42 (63) 100 02/27/19 20:00 30 02/27/19 19:30 112 28 103/68 (80) 100 02/27/19 19:08 115 30 100 Mechanical Ventilator 30 02/27/19 19:00 112 33 30 02/27/19 19:00 114 24 119/93 (102) 100 02/27/19 19:00 114/93 02/27/19 18:59 112 33 99 Mechanical Ventilator 30 02/27/19 18:30 107/44 02/27/19 18:30 110 29 117/41 (66) 100 02/27/19 18:00 117/41 02/27/19 18:00 119 28 107/44 (65) 98 02/27/19 17:56 110/47 02/27/19 17:55 99/53 02/27/19 17:30 117 27 110/47 (68) 100 02/27/19 17:21 98 32 30 02/27/19 17:00 110/47 02/27/19 17:00 107 33 129/56 (80) 100 02/27/19 16:30 108 33 115/56 (75) 100 I&O Intake and Output 02/27/19 02/28/19 19:00 07:00 Intake Total 1888.375 ml 1835.833 ml Output Total 1435 ml 1590 ml Balance 453.375 ml 245.833 ml Free Water 140 ml 80 ml IV Total 1298.375 ml 1635.833 ml Tube Feeding 450 ml 120 ml Output Urine Total 1435 ml 1590 ml # Bowel Movements 1 1 Cardiovascular: RSR Respiratory: clear Abdomen: soft, distended, non-tender Extremities: no cyanosis Laboratory Tests Test 02/28/19 04:10 02/28/19 05:20 02/28/19 10:33 02/28/19 12:12 White Blood Count 16.0 K/UL (4.8-10.8) H Red Blood Count 2.67 M/UL (4.20-5.40) L Hemoglobin 8.5 G/DL (12.0-16.0) L Hematocrit 27.5 % (37.0-47.0) L Mean Corpuscular Volume 103 FL (80-99) H Mean Corpuscular Hemoglobin 31.7 PG (27.0-31.0) H Mean Corpuscular Hemoglobin Concent 30.9 G/DL (32.0-36.0) L Red Cell Distribution Width 15.9 % (11.6-14.8) H Platelet Count 122 K/UL (150-450) L Mean Platelet Volume 11.1 FL (6.5-10.1) H Neutrophils (%) (Auto) % (45.0-75.0) Lymphocytes (%) (Auto) % (20.0-45.0) Monocytes (%) (Auto) % (1.0-10.0) Eosinophils (%) (Auto) % (0.0-3.0) Basophils (%) (Auto) % (0.0-2.0) Differential Total Cells Counted 100 Neutrophils % (Manual) 86 % (45-75) H Lymphocytes % (Manual) 12 % (20-45) L Monocytes % (Manual) 2 % (1-10) Eosinophils % (Manual) 0 % (0-3) Basophils % (Manual) 0 % (0-2) Band Neutrophils 0 % (0-8) Nucleated Red Blood Cells 1 /100 WBC Platelet Estimate Decreased L Platelet Morphology Normal Hypochromasia 2+ Anisocytosis 1+ Macrocytosis 1+ Sodium Level 150 MMOL/L (136-145) H Potassium Level 3.1 MMOL/L (3.5-5.1) L Chloride Level 119 MMOL/L (98-107) H Carbon Dioxide Level 19 MMOL/L (21-32) L Anion Gap 12 mmol/L (5-15) Blood Urea Nitrogen 34 mg/dL (7-18) H Creatinine 1.7 MG/DL (0.55-1.30) H Estimat Glomerular Filtration Rate mL/min (>60) Glucose Level 164 MG/DL (74-106) #H Lactic Acid Level 2.40 mmol/L (0.4-2.0) H 2.60 mmol/L (0.66-2.22) H 1.90 mmol/L (0.4-2.0) Calcium Level 8.4 MG/DL (8.5-10.1) L Arterial Blood pH 7.362 (7.350-7.450) Arterial Blood Partial Pressure CO2 28.7 mmHg (35.0-45.0) L Arterial Blood Partial Pressure O2 109.6 mmHg (75.0-100.0) H Arterial Blood HCO3 15.9 mmol/L (22.0-26.0) *L Arterial Blood Oxygen Saturation 97.8 % (95-100) Arterial Blood Base Excess -8.5 (-2-2) L Cam Test Positive Troponin I 0.016 ng/mL (0.000-0.056) Random Vancomycin Level 26.0 ug/mL Plan Problems: (1) Fecal impaction Assessment & Plan: patient with fecal impaction KUB noted unable to improve with enema and g tube Rx recommend manual disimpaction with assistance of nursing staff patient was turned and manual disimpaction performed at bedside. significant fecal retention in rectum past what my finger could reach. stool soft and not hard. rectum cleared of stool cont with oral rx and enema will perform manual prn will follow with recs thank you (2) Sepsis Assessment & Plan: leukocytosis lactic acidosis micro noted on vent support IV Abx as per ID will follow trend labs thank you Helio Salgado Feb 28, 2019 16:18
--- NOTE | 2019-02-28 17:03 | NUR ---
NURSE NOTES: PATIENT KEPT CLEAN AND DRY. NOTED ANOTHER LARGE BM, SOFT GREENISH. STILL ON COOL AEROSOL, BUT PULLING MASK ON AND OFF. SATING AT 95-100%. SUCTIONED AND REPOSITIONED PATIENT. WILL CONTINUE TO MONITOR.
--- NOTE | 2019-02-28 18:08 | Infectious Diseases Prog Note ---
Assessment/Plan Assessment/Plan Assessment: Septic Shock- likely 2ry to PNA- r/o bacteremia -KUB: Fecal impaction distal sigmoid/rectum. -02/25 CXR: Development of lower lobe infiltrates. Correlate clinically for pneumonia -CXR:Endotracheal tube 2.8 cm above the ludwig in good position. Mild cardiomegaly. Mild right upper lobe interstitial prominence. -CT head: No acute intracranial process. Involutional changes with small vessel disease. Moderate ethmoid sinus mucosal thickening and fluid. Small fluid level in the right sphenoid sinus. -u/a wbc 5-10, nit neg, leuk +1; ucx Neg -02/23 Bcx NTD; 02/25 Bcx NTD -sp cx ESBL E.coli, MRSA, P.stuarti (S Ceftriaxone, Ertapenem, Zosyn) -2d Echo: no vegetations -legionella ag urine neg Acute respiratory failure s/p intubation 02/23 Fever; improving Leukocytosis; increased,now improving Lactic acidosis; SP NAOMY on CKD Hypernatremia hx of MRSA bacteremia 11/2018 -TTE no vegetation hx of ESBL E.coli UTI 11/2018 HTN Dm2 CHF COPD dysphagia s/p GT HLD OA advanced Dementia non verbal SNF resident Plan: -D/c empiric Doxycycline #6 -Continue empiric Meropenem #/-14 for ESBL PNA -Resume IV Vancomycin #/10-14 for MRSA PNA (currently on hold due to supratherapeutic levels) -02/27 SP Amikacin #4 -/6 SP IV Vancomycin #4 -/ SP Zosyn #2 -02/23 SP Cefepime x1, Flagyl x1 -f/u cx -Monitor CBC/BMP, temperatures -Cdiff if diarrhea -CXR am Thank you for this consultation. Will continue to follow along with you. Discussed with RN. Subjective Allergies: Coded Allergies: SULFA (SULFONAMIDE ANTIBIOTICS) (Unverified Allergy, Unknown, 09/30/18) COPIED FROM UNCODED Uncoded Allergies: SULFA (Allergy, Unknown, 11/20/18) Subjective afebrile >24hrs wbc improving Cr improving supratherapeutic vanco levels Bcx NTD levophed up to 12 Objective Vital Signs Last 24 Hour Vital Signs Date Time Temp Pulse Resp B/P (MAP) Pulse Ox O2 Delivery O2 Flow Rate FiO2 02/28/19 17:00 103 24 114/45 (68) 100 02/28/19 17:00 108/52 02/28/19 16:30 99 24 108/52 (70) 98 02/28/19 16:00 Simple Mask 6.0 02/28/19 16:00 103 02/28/19 16:00 103/27 02/28/19 16:00 98.9 103 27 108/52 (70) 96 02/28/19 15:30 99 32 91/42 (58) 100 02/28/19 15:15 105 28 99 Cool Aerosol 6.0 28 02/28/19 15:07 103 26 97 Cool Aerosol 6.0 28 02/28/19 15:00 100 25 108/47 (67) 94 02/28/19 15:00 108/51 02/28/19 14:30 100 26 108/51 (70) 96 02/28/19 14:00 103 26 108/47 (67) 99 02/28/19 14:00 108/47 02/28/19 14:00 20 Room Air 02/28/19 13:30 100 25 108/47 (67) 99 02/28/19 13:00 104 27 103/46 (65) 97 02/28/19 13:00 103/46 02/28/19 12:30 Venturi Mask 6.0 100 02/28/19 12:30 Simple Mask 6.0 02/28/19 12:30 116 24 95/57 (70) 99 02/28/19 12:00 98.9 109 29 103/41 (61) 100 02/28/19 12:00 109 02/28/19 12:00 95/57 02/28/19 12:00 Mechanical Ventilator 02/28/19 12:00 30 02/28/19 11:05 108 30 99 Mechanical Ventilator 30 02/28/19 11:00 107/43 02/28/19 11:00 108 30 107/43 (64) 100 02/28/19 10:58 107 30 99 Mechanical Ventilator 30 02/28/19 10:33 108 30 30 02/28/19 10:30 105 27 112/38 (62) 99 02/28/19 10:00 115/39 02/28/19 10:00 107 30 115/39 (64) 99 02/28/19 09:30 110 29 104/31 (55) 99 02/28/19 09:00 110/43 02/28/19 09:00 112 29 110/43 (65) 99 02/28/19 08:55 109 33 30 30 02/28/19 08:55 100 02/28/19 08:55 30 02/28/19 08:30 111 30 116/48 (70) 100 02/28/19 08:00 Mechanical Ventilator 02/28/19 08:00 99.1 112 29 99/51 (67) 100 02/28/19 08:00 109 02/28/19 08:00 99/51 02/28/19 08:00 30 02/28/19 07:57 108 30 99 Mechanical Ventilator 30 02/28/19 07:51 106/50 02/28/19 07:40 116 31 30 02/28/19 07:38 112 35 99 Mechanical Ventilator 30 02/28/19 07:30 107 25 106/50 (68) 100 02/28/19 07:00 117 30 110/70 (83) 100 02/28/19 07:00 110/64 02/28/19 06:30 117 30 108/45 (66) 100 02/28/19 06:00 117 30 108/45 (66) 100 02/28/19 06:00 108/45 02/28/19 05:30 115 30 118/49 (72) 100 02/28/19 05:06 116 31 30 02/28/19 05:00 118 31 115/46 (69) 100 02/28/19 05:00 115/46 02/28/19 04:30 115 32 102/53 (69) 100 02/28/19 04:00 Mechanical Ventilator 02/28/19 04:00 107/45 02/28/19 04:00 30 02/28/19 04:00 115 02/28/19 04:00 98.0 115 30 118/49 (72) 100 02/28/19 03:30 118 30 100/50 (67) 100 02/28/19 03:08 118 34 30 02/28/19 03:00 115 30 106/47 (66) 100 02/28/19 03:00 118/45 02/28/19 02:30 114 30 107/55 (72) 100 02/28/19 02:07 113 32 100 Mechanical Ventilator 30 02/28/19 02:01 114 31 100 Mechanical Ventilator 30 02/28/19 02:00 117 28 121/48 (72) 99 02/28/19 02:00 121/48 02/28/19 01:30 114 33 104/40 (61) 100 02/28/19 01:00 114 30 100/47 (64) 100 02/28/19 01:00 96/36 02/28/19 00:44 109 32 30 02/28/19 00:30 117 30 96/36 (56) 99 02/28/19 00:00 30 02/28/19 00:00 113/47 02/28/19 00:00 Mechanical Ventilator 02/28/19 00:00 118 02/28/19 00:00 98.6 117 30 113/47 (69) 100 02/27/19 23:30 119 32 110/50 (70) 100 02/27/19 23:00 101 27 106/50 (68) 100 02/27/19 23:00 106/50 02/27/19 22:52 108 30 100 Mechanical Ventilator 30 02/27/19 22:45 110 30 100 Mechanical Ventilator 30 02/27/19 22:45 106 31 30 02/27/19 22:30 107 27 100/45 (63) 100 02/27/19 22:02 106/50 02/27/19 22:00 85/40 02/27/19 22:00 101 27 85/40 (55) 100 02/27/19 21:30 107 26 87/40 (56) 100 02/27/19 21:00 115/47 02/27/19 21:00 108 24 91/46 (61) 100 02/27/19 20:35 108 30 30 02/27/19 20:30 109 26 110/65 (80) 100 02/27/19 20:00 Mechanical Ventilator 02/27/19 20:00 108 02/27/19 20:00 91/46 02/27/19 20:00 98.6 108 27 105/42 (63) 100 02/27/19 20:00 30 02/27/19 19:30 112 28 103/68 (80) 100 02/27/19 19:08 115 30 100 Mechanical Ventilator 30 02/27/19 19:00 112 33 30 02/27/19 19:00 114 24 119/93 (102) 100 02/27/19 19:00 114/93 02/27/19 18:59 112 33 99 Mechanical Ventilator 30 02/27/19 18:30 107/44 02/27/19 18:30 110 29 117/41 (66) 100 02/27/19 18:00 117/41 02/27/19 18:00 119 28 107/44 (65) 98 Height (Feet): 5 Height (Inches): 8.00 Weight (Pounds): 196 Objective General Appearance: lethargic, moderate distress Lines, tubes and drains: peripheral, central line, gtube HEENT: normocephalic, atraumatic, anicteric, mucous membranes moist, PERRL, EOMI, pharynx normal, supple, no JVD Neck: non-tender, normal alignment, supple, normal inspection Respiratory/Chest: accessory muscle use, crackles/rales, rhonchi - bilaterally , rhonchi - left Cardiovascular/Chest: normal peripheral pulses, regular rhythm, tachycardia Abdomen: normal bowel sounds, non tender, soft, no organomegaly, no mass Extremities: normal range of motion, non-tender, normal inspection, no calf tenderness, normal capillary refill, non-pitting Skin Exam: normal pigmentation, warm/dry, cyanotic Neurologic: sensory deficit, unresponsiveness Microbiology Date/Time Source Procedure Growth Status 02/25/19 18:35 Blood Blood Culture - Preliminary NO GROWTH AFTER 48 HOURS Resulted 02/25/19 18:30 Blood Blood Culture - Preliminary NO GROWTH AFTER 48 HOURS Resulted Laboratory Tests Test 02/28/19 04:10 02/28/19 05:20 02/28/19 10:33 02/28/19 12:12 White Blood Count 16.0 K/UL (4.8-10.8) H Red Blood Count 2.67 M/UL (4.20-5.40) L Hemoglobin 8.5 G/DL (12.0-16.0) L Hematocrit 27.5 % (37.0-47.0) L Mean Corpuscular Volume 103 FL (80-99) H Mean Corpuscular Hemoglobin 31.7 PG (27.0-31.0) H Mean Corpuscular Hemoglobin Concent 30.9 G/DL (32.0-36.0) L Red Cell Distribution Width 15.9 % (11.6-14.8) H Platelet Count 122 K/UL (150-450) L Mean Platelet Volume 11.1 FL (6.5-10.1) H Neutrophils (%) (Auto) % (45.0-75.0) Lymphocytes (%) (Auto) % (20.0-45.0) Monocytes (%) (Auto) % (1.0-10.0) Eosinophils (%) (Auto) % (0.0-3.0) Basophils (%) (Auto) % (0.0-2.0) Differential Total Cells Counted 100 Neutrophils % (Manual) 86 % (45-75) H Lymphocytes % (Manual) 12 % (20-45) L Monocytes % (Manual) 2 % (1-10) Eosinophils % (Manual) 0 % (0-3) Basophils % (Manual) 0 % (0-2) Band Neutrophils 0 % (0-8) Nucleated Red Blood Cells 1 /100 WBC Platelet Estimate Decreased L Platelet Morphology Normal Hypochromasia 2+ Anisocytosis 1+ Macrocytosis 1+ Sodium Level 150 MMOL/L (136-145) H Potassium Level 3.1 MMOL/L (3.5-5.1) L Chloride Level 119 MMOL/L (98-107) H Carbon Dioxide Level 19 MMOL/L (21-32) L Anion Gap 12 mmol/L (5-15) Blood Urea Nitrogen 34 mg/dL (7-18) H Creatinine 1.7 MG/DL (0.55-1.30) H Estimat Glomerular Filtration Rate mL/min (>60) Glucose Level 164 MG/DL (74-106) #H Lactic Acid Level 2.40 mmol/L (0.4-2.0) H 2.60 mmol/L (0.66-2.22) H 1.90 mmol/L (0.4-2.0) Calcium Level 8.4 MG/DL (8.5-10.1) L Arterial Blood pH 7.362 (7.350-7.450) Arterial Blood Partial Pressure CO2 28.7 mmHg (35.0-45.0) L Arterial Blood Partial Pressure O2 109.6 mmHg (75.0-100.0) H Arterial Blood HCO3 15.9 mmol/L (22.0-26.0) *L Arterial Blood Oxygen Saturation 97.8 % (95-100) Arterial Blood Base Excess -8.5 (-2-2) L Cam Test Positive Troponin I 0.016 ng/mL (0.000-0.056) Random Vancomycin Level 26.0 ug/mL Current Medications Medications (Trade) Dose Ordered Sig/Chandu Route PRN Reason Start Time Stop Time Status Last Admin Dose Admin Acetaminophen (Tylenol) 650 mg Q4H PRN GT Temp > 100.5 02/23/19 17:00 03/25/19 16:59 02/25/19 17:13 Albuterol/ Ipratropium (Albuterol/ Ipratropium) 3 ml Q4HRT HHN 02/28/19 15:00 03/14/19 16:00 02/28/19 15:07 Ascorbic Acid (Vitamin C) 500 mg DAILY ORAL 02/24/19 09:00 03/26/19 08:59 02/28/19 08:53 Atorvastatin Calcium (Lipitor) 10 mg BEDTIME ORAL 02/23/19 21:00 03/25/19 20:59 02/27/19 20:32 Bethanechol Chloride (Urecholine) 5 mg THREE TIMES A DAY ORAL 02/23/19 18:00 03/25/19 17:59 02/28/19 12:15 Chlorhexidine Gluconate (Sue-Hex 2%) 1 applic DAILY@2000 TOPIC 02/23/19 20:00 03/25/19 19:59 02/27/19 20:31 Dextrose 1,000 ml @ 75 mls/hr [id number] IV 02/28/19 11:15 03/30/19 11:14 02/28/19 11:27 Dextrose (Dextrose 50%) 25 ml Q30M PRN IV Hypoglycemia 02/23/19 11:45 03/25/19 11:44 Dextrose (Dextrose 50%) 50 ml Q30M PRN IV Hypoglycemia 02/23/19 11:45 03/25/19 11:44 Docusate Sodium (Colace) 100 mg BID ORAL 02/27/19 09:00 03/29/19 08:59 02/27/19 17:56 Doxycycline Hyclate 100 mg/ Dextrose 110 ml @ 110 mls/hr Q12HR@0600,1800 IV 02/23/19 18:00 03/02/19 17:59 02/28/19 05:33 Insulin Aspart (NovoLOG) Q6HR SUBQ 02/26/19 18:00 03/25/19 15:29 02/28/19 05:32 Lactulose (Cephulac) 20 gm THREE TIMES A DAY ORAL 02/27/19 09:00 03/29/19 08:59 02/27/19 17:56 Memantine (Namenda) 10 mg Q12HR ORAL 02/23/19 21:00 03/25/19 20:59 02/28/19 08:53 Meropenem 1 gm/ Sodium Chloride 55 ml @ 110 mls/hr Q12HR@0600,1800 IVPB 02/24/19 18:00 03/05/19 23:00 02/28/19 05:31 Mineral Oil (Mineral Oil) 30 ml DAILYPRN PRN ORAL Constipation 02/25/19 16:42 03/27/19 16:41 02/25/19 17:13 Multivitamins (Multivitamins W/ Minerals 15ml Liquid) 15 ml DAILY GT 02/24/19 09:00 03/26/19 08:59 02/28/19 08:53 Norepinephrine Bitartrate 8 mg/ Dextrose 500 ml @ 0 mls/hr Q24H IV 02/24/19 23:00 03/26/19 22:59 02/28/19 07:51 Pantoprazole (Protonix) 40 mg DAILY IVP 02/24/19 09:00 03/26/19 08:59 02/28/19 08:52 Polyethylene Glycol (Miralax) 17 gm DAILYPRN PRN ORAL Constipation 02/23/19 12:15 03/25/19 12:14 02/26/19 08:04 Vancomycin HCl (Vanco rx to dose) 1 ea DAILY PRN MISC Per rx protocol 02/27/19 19:30 03/29/19 19:29 Frances Chavarria M.D. Feb 28, 2019 18:07
--- NOTE | 2019-02-28 18:35 | NUR ---
NURSE NOTES: STILL TOLERATING COOL AEROSOL AND FUBE FEEDING. STILL ON LEVOPHED FOLLOWING HOSPITAL PROTOCOL. SATING BETWEEN 97-100%. WILL CONTINUE TO MONITOR.
--- NOTE | 2019-02-28 19:16 | NUR ---
HAND-OFF: Report given to Rachana Mata RN.
--- NOTE | 2019-02-28 19:20 | NUR ---
NURSE NOTES: RECEIVED PATIENT FROM DAKOTA AMATO. PATIENT IS LYING IN BED, ASLEEP, IN NO ACUTE DISTRESS, HOOKED TO LIGHT FIXTURE SERVICER. ON OXYGEN MASK WITH AEROSOL, O2 AT 6L. NO SIGNS OF CARDIO OR RESPI DISTRESS OF THE MOMENT. WITH CENTRAL LINE ON R IJ TLC IVF RUNNING D5 NS AT 75ML/HR AND LEVOPHED RUNNING AT 12MCG/MIN FOLLOWING HOSPITAL PROTOCOL. GT RUNNING GLUCERNA 1.2 AT 40ML/HR, GOAL TO BE 60ML/HR. CALL LIGHT WITHIN REACH. BED AT LOWEST POSITION. SIDE RAILS UP. WILL CONTINUE TO MONITOR.
[2019-02-28] MEDS: Dyna-Hex 2% Top Sol 2oz TOPIC SCH (21:05)
--- NOTE | 2019-02-28 22:00 | NUR ---
NURSE NOTES: PT'S RESTING IN BED, IN NO ACUTE DISTRESS. NOTED FEEDING RESIDUAL MORE THAN 100ML, FEEDING WAS HELD. HOB KEPT ELEVATED. WILL CONTINUE TO MONITOR.
[2019-03-01] VITALS (57 sets, daily range): BP systolic 90–138; BP diastolic 31–70
--- NOTE | 2019-03-01 | NUR ---
NURSE NOTES: PT'S RESTING IN BED, IN NO ACUTE DISTRESS. VS STABLE. LEVOPHED CURRENTLY RUNNING AT 10MCG/MIN. WILL CONTINUE TO MONITOR.
[2019-03-01] MEDS: NovoLOG Insulin Flexpen SUBQ SCH ×4 (00:07→17:44)
--- NOTE | 2019-03-01 02:00 | NUR ---
NURSE NOTES: PT'S RESTING IN BED, IN NO ACUTE DISTRESS. VS STABLE. WILL CONTINUE TO MONITOR.
[2019-03-01] MEDS: Albuterol/Ipratropium 3ml neb HHN SCH ×6 (03:26→23:03)
--- NOTE | 2019-03-01 04:00 | NUR ---
NURSE NOTES: PT'S RESTING IN BED, VS STABLE, ON RA WITH O2 SAT 97%. WILL CONTINUE TO MONITOR.
[2019-03-01 04:55] LABS: BASOPHILS % (AUTO) 0.5 % (0.0-2.0); EOSINOPHILS % (AUTO) 0.6 % (0.0-3.0); HEMATOCRIT 26.5 % (37.0-47.0); HEMOGLOBIN 8.2 G/DL (12.0-16.0); LYMPHOCYTES % (AUTO) 16.9 % (20.0-45.0); MEAN CORPUSCULAR VOLUME 104 FL (80-99); MONOCYTES % (AUTO) 5.5 % (1.0-10.0); NEUTROPHILS % (AUTO) 76.6 % (45.0-75.0); PLATELET COUNT 116 K/UL (150-450); RED BLOOD COUNT 2.56 M/UL (4.20-5.40); RED CELL DISTRIBUTION WIDTH 15.3 % (11.6-14.8); WHITE BLOOD COUNT 12.9 K/UL (4.8-10.8)
[2019-03-01 05:18] LABS: ANION GAP 12 mmol/L (5-15); BLOOD UREA NITROGEN 29 mg/dL (7-18); CALCIUM 7.8 MG/DL (8.5-10.1); CARBON DIOXIDE 20 MMOL/L (21-32); CHLORIDE 120 MMOL/L (98-107); CREATININE 1.6 MG/DL (0.55-1.30); POTASSIUM 2.9 MMOL/L (3.5-5.1); SODIUM 152 MMOL/L (136-145)
--- NOTE | 2019-03-01 06:00 | NUR ---
NURSE NOTES: PT'S RESTING IN BED, IN NO ACUTE DISTRESS. VS STABLE. CURRENT LEVOPHED RUNNING AT 6MCG/MIN, ON ROOM AIR WITH OS SAT AT 97%. WILL CONTINUE TO MONITOR.
[2019-03-01] MEDS: Meropenem 1 GM in NS 55 ML IVPB SCH ×2 (06:04→17:42)
--- NOTE | 2019-03-01 07:00 | NUR ---
NURSE NOTES: NOTIFIED DR BROCK ABOUT PT'S CURRENT POTASSIUM LEVEL. NEW ORDER NOTED AND CARRIED OUT. WILL CONTINUE TO MONITOR.
--- NOTE | 2019-03-01 07:28 | NUR ---
HAND-OFF: Report given to DAKOTA Patel.
--- NOTE | 2019-03-01 07:29 | NUR ---
NURSE NOTES: Report received from DAKOTA Figueroa. Pt is awake, confused, and resistive to care. Unable to follow commands. On RA. O2 sat 98%. Wheezing and crackles noted. Pt is on scheduled breathing treatment. No labored breathing noted. Sinus rhythm on forest products gatherer. G tube in place receiving Glucerna 1.2 at 60cc/hr. Will check residual. Scales in place draining to gravity. Right IJ TLC patent and asymptomatic. Pt is on Levo at 6mcg/min and D5W at 75cc/hr. Bed in lowest position. Side rails up x3. Will resume plan of care.
[2019-03-01] MEDS ORDERED: Metoclopramide 10mg/2ml Inj IVP PRN (08:45)
--- NOTE | 2019-03-01 08:46 | General Progress Note ---
Assessment/Plan Status: stable Assessment/Plan: (1) Feeding by G-tube (2) Diabetes (3) Anemia (4) Sepsis (5) Respiratory failure GTF add reglan decrease lactulose fu H&H ppi daily respiratory care ABX had multiple BM extubated Subjective ROS Limited/Unobtainable: No Allergies: Coded Allergies: SULFA (SULFONAMIDE ANTIBIOTICS) (Unverified Allergy, Unknown, 09/30/18) COPIED FROM UNCODED Uncoded Allergies: SULFA (Allergy, Unknown, 11/20/18) Objective Last 24 Hour Vital Signs Date Time Temp Pulse Resp B/P (MAP) Pulse Ox O2 Delivery O2 Flow Rate FiO2 03/01/19 07:00 103 22 112/46 (68) 96 03/01/19 07:00 112/46 03/01/19 06:30 105 23 112/46 (68) 96 03/01/19 06:00 119/49 03/01/19 06:00 99.1 105 25 119/49 (72) 96 03/01/19 05:30 105 23 123/64 (83) 96 03/01/19 05:00 110/50 03/01/19 05:00 100 22 125/53 (77) 96 03/01/19 04:30 103 22 110/55 (73) 97 03/01/19 04:00 96 19 107/42 (63) 95 03/01/19 04:00 Simple Mask 6.0 Simple Mask 6.0 03/01/19 04:00 107/42 03/01/19 04:00 104 03/01/19 03:35 101 26 100 Cool Aerosol 6.0 28 03/01/19 03:30 94 21 115/38 (63) 97 03/01/19 03:26 97 20 98 Cool Aerosol 6.0 28 03/01/19 03:00 95 26 110/52 (71) 97 03/01/19 03:00 120/50 03/01/19 02:30 102 28 138/70 (92) 03/01/19 02:00 138/70 03/01/19 02:00 95 27 117/44 (68) 99 03/01/19 01:30 99 32 118/47 (70) 91 03/01/19 01:00 118/47 03/01/19 01:00 94 21 111/45 (67) 100 03/01/19 00:30 98 26 123/49 (73) 75 03/01/19 00:00 99 28 107/35 (59) 86 03/01/19 00:00 123/49 03/01/19 00:00 104 03/01/19 00:00 Simple Mask 6.0 Simple Mask 6.0 02/28/19 23:30 99 26 117/39 (65) 88 02/28/19 23:29 100 25 100 Cool Aerosol 6.0 28 02/28/19 23:18 99 26 100 Cool Aerosol 6.0 28 02/28/19 23:00 117/39 02/28/19 23:00 95 26 119/56 (77) 99 02/28/19 22:30 94 23 118/41 (66) 97 02/28/19 22:00 100 27 105/33 (57) 99 02/28/19 22:00 116/33 02/28/19 21:30 100 27 116/33 (60) 97 02/28/19 21:00 114/39 02/28/19 21:00 98 24 114/39 (64) 98 02/28/19 20:30 98 26 110/40 (63) 100 02/28/19 20:00 98 02/28/19 20:00 Simple Mask 6.0 Simple Mask 6.0 02/28/19 20:00 109/41 02/28/19 20:00 98 29 109/41 (63) 99 02/28/19 19:30 91/31 02/28/19 19:30 99.0 99 28 91/31 (51) 99 02/28/19 19:22 102 25 100 Cool Aerosol 6.0 28 02/28/19 19:21 94/37 02/28/19 19:12 102 26 100 Cool Aerosol 6.0 28 02/28/19 19:00 94 26 105/33 (57) 99 02/28/19 19:00 105/33 02/28/19 18:30 100 24 114/48 (70) 97 02/28/19 18:00 102 25 114/48 (70) 97 02/28/19 18:00 114/48 02/28/19 17:30 102 24 104/37 (59) 96 02/28/19 17:00 103 24 114/45 (68) 100 02/28/19 17:00 108/52 02/28/19 16:30 99 24 108/52 (70) 98 02/28/19 16:00 Simple Mask 6.0 02/28/19 16:00 103 02/28/19 16:00 103/27 02/28/19 16:00 98.9 103 27 108/52 (70) 96 02/28/19 15:30 99 32 91/42 (58) 100 02/28/19 15:15 105 28 99 Cool Aerosol 6.0 28 02/28/19 15:07 103 26 97 Cool Aerosol 6.0 28 02/28/19 15:00 100 25 108/47 (67) 94 02/28/19 15:00 108/51 02/28/19 14:30 100 26 108/51 (70) 96 02/28/19 14:00 103 26 108/47 (67) 99 02/28/19 14:00 108/47 02/28/19 14:00 20 Room Air 02/28/19 13:30 100 25 108/47 (67) 99 02/28/19 13:00 104 27 103/46 (65) 97 02/28/19 13:00 103/46 02/28/19 12:30 Venturi Mask 6.0 100 02/28/19 12:30 Simple Mask 6.0 02/28/19 12:30 116 24 95/57 (70) 99 02/28/19 12:00 98.9 109 29 103/41 (61) 100 02/28/19 12:00 109 02/28/19 12:00 95/57 02/28/19 12:00 Mechanical Ventilator 02/28/19 12:00 30 02/28/19 11:05 108 30 99 Mechanical Ventilator 30 02/28/19 11:00 107/43 02/28/19 11:00 108 30 107/43 (64) 100 02/28/19 10:58 107 30 99 Mechanical Ventilator 30 02/28/19 10:33 108 30 30 02/28/19 10:30 105 27 112/38 (62) 99 02/28/19 10:00 115/39 02/28/19 10:00 107 30 115/39 (64) 99 02/28/19 09:30 110 29 104/31 (55) 99 02/28/19 09:00 110/43 02/28/19 09:00 112 29 110/43 (65) 99 02/28/19 08:55 109 33 30 30 02/28/19 08:55 100 02/28/19 08:55 30 Intake and Output 02/28/19 03/01/19 19:00 07:00 Intake Total 3149 ml 1646.25 ml Output Total 1500 ml 2100 ml Balance 1649 ml -453.75 ml Free Water 150 ml IV Total 2769 ml 1446.25 ml Tube Feeding 230 ml 200 ml Output Urine Total 1500 ml 2100 ml # Bowel Movements 4 3 Laboratory Tests 02/28/19 10:33: Arterial Blood pH 7.362, Arterial Blood Partial Pressure CO2 28.7L, Arterial Blood Partial Pressure O2 109.6H, Arterial Blood HCO3 15.9*L, Arterial Blood Oxygen Saturation 97.8, Arterial Blood Base Excess -8.5L, Cam Test Positive 02/28/19 12:12: Lactic Acid Level 1.90, Troponin I 0.016, Random Vancomycin Level 26.0 03/01/19 04:00: Random Vancomycin Level 20.2, White Blood Count 12.9H, Red Blood Count 2.56L, Hemoglobin 8.2L, Hematocrit 26.5L, Mean Corpuscular Volume 104H, Mean Corpuscular Hemoglobin 32.2H, Mean Corpuscular Hemoglobin Concent 31.1L, Red Cell Distribution Width 15.3H, Platelet Count 116L, Mean Platelet Volume 11.3H, Neutrophils (%) (Auto) 76.6H, Lymphocytes (%) (Auto) 16.9L, Monocytes (%) (Auto ) 5.5, Eosinophils (%) (Auto) 0.6, Basophils (%) (Auto) 0.5, Sodium Level 152H, Potassium Level 2.9L, Chloride Level 120H, Carbon Dioxide Level 20L, Anion Gap 12, Blood Urea Nitrogen 29H, Creatinine 1.6H, Estimat Glomerular Filtration Rate , Glucose Level 166H, Calcium Level 7.8L Height (Feet): 5 Height (Inches): 8.00 Weight (Pounds): 194 General Appearance: lethargic EENT: normal ENT inspection Neck: supple Cardiovascular: tachycardia Respiratory/Chest: decreased breath sounds Abdomen: normal bowel sounds, non tender, soft Extremities: non-tender Ramos Rutledge MD Mar 01, 2019 08:46
[2019-03-01] MEDS: Norepinephrine Bitartrate 8 MG in D5W 500ml 492 ML IV SCH (08:52)
[2019-03-01] MEDS: Multivitamins W/Minerals 15 ML UDC GT SCH (08:53)
[2019-03-01] MEDS: Memantine 10mg tab ORAL SCH ×2 (08:53→20:59)
[2019-03-01] MEDS: Docusate 100mg tablet ORAL SCH ×2 (08:53→17:42)
[2019-03-01] MEDS: Ascorbic Acid 500mg tab ORAL SCH (08:53)
[2019-03-01] MEDS: Bethanechol 10mg Tab ORAL SCH ×3 (08:53→17:42)
[2019-03-01] MEDS: Lactulose 20gm/30ml UDC ORAL SCH (09:00)
--- NOTE | 2019-03-01 09:30 | NUR ---
NURSE NOTES: Turned and repositioned pt. Oral care done. BP stable with Levophed drip at 4mcg/min. Will continue to monitor.
--- NOTE | 2019-03-01 09:31 | NUR ---
RADIOLOGY DEPT., CHEST AND ABDOMEN X-RAYS DONE.-P.DYE
--- NOTE | 2019-03-01 10:48 | Infectious Diseases Prog Note ---
Assessment/Plan Assessment/Plan Assessment: Septic Shock- likely 2ry to PNA- r/o bacteremia -KUB: Fecal impaction distal sigmoid/rectum. -02/25 CXR: Development of lower lobe infiltrates. Correlate clinically for pneumonia -CXR:Endotracheal tube 2.8 cm above the ludwig in good position. Mild cardiomegaly. Mild right upper lobe interstitial prominence. -CT head: No acute intracranial process. Involutional changes with small vessel disease. Moderate ethmoid sinus mucosal thickening and fluid. Small fluid level in the right sphenoid sinus. -u/a wbc 5-10, nit neg, leuk +1; ucx Neg -02/23 Bcx NTD; 02/25 Bcx NTD -sp cx ESBL E.coli, MRSA, P.stuarti (S Ceftriaxone, Ertapenem, Zosyn) -2d Echo: no vegetations -legionella ag urine neg Acute respiratory failure s/p intubation 02/23 Fever; improving Leukocytosis; increased,now improving Lactic acidosis; SP NAOMY on CKD Hypernatremia hx of MRSA bacteremia 11/2018 -TTE no vegetation hx of ESBL E.coli UTI 11/2018 HTN Dm2 CHF COPD dysphagia s/p GT HLD OA advanced Dementia non verbal SNF resident Plan: -Continue empiric Meropenem #/-14 for ESBL PNA -Cont IV Vancomycin #/10-14 for MRSA PNA -8/ SP Doxycycline #6 -8/7 SP Amikacin #4 -8/6 SP IV Vancomycin #4 -8/4 SP Zosyn #2 -/3 SP Cefepime x1, Flagyl x1 -f/u cx -Monitor CBC/BMP, temperatures -Cdiff if diarrhea -CXR am Thank you for this consultation. Will continue to follow along with you. Discussed with RN. Subjective Allergies: Coded Allergies: SULFA (SULFONAMIDE ANTIBIOTICS) (Unverified Allergy, Unknown, 09/30/18) COPIED FROM UNCODED Uncoded Allergies: SULFA (Allergy, Unknown, 11/20/18) Subjective afebrile ~48hrs wbc improving Cr improving Bcx NTD on levophed Objective Vital Signs Last 24 Hour Vital Signs Date Time Temp Pulse Resp B/P (MAP) Pulse Ox O2 Delivery O2 Flow Rate FiO2 03/01/19 08:52 100/48 03/01/19 07:00 103 22 112/46 (68) 96 03/01/19 07:00 112/46 03/01/19 06:30 105 23 112/46 (68) 96 03/01/19 06:00 119/49 03/01/19 06:00 99.1 105 25 119/49 (72) 96 03/01/19 05:30 105 23 123/64 (83) 96 03/01/19 05:00 110/50 03/01/19 05:00 100 22 125/53 (77) 96 03/01/19 04:30 103 22 110/55 (73) 97 03/01/19 04:00 96 19 107/42 (63) 95 03/01/19 04:00 Simple Mask 6.0 Simple Mask 6.0 03/01/19 04:00 107/42 03/01/19 04:00 104 03/01/19 03:35 101 26 100 Cool Aerosol 6.0 28 03/01/19 03:30 94 21 115/38 (63) 97 03/01/19 03:26 97 20 98 Cool Aerosol 6.0 28 03/01/19 03:00 95 26 110/52 (71) 97 03/01/19 03:00 120/50 03/01/19 02:30 102 28 138/70 (92) 03/01/19 02:00 138/70 03/01/19 02:00 95 27 117/44 (68) 99 03/01/19 01:30 99 32 118/47 (70) 91 03/01/19 01:00 118/47 03/01/19 01:00 94 21 111/45 (67) 100 03/01/19 00:30 98 26 123/49 (73) 75 03/01/19 00:00 99 28 107/35 (59) 86 03/01/19 00:00 123/49 03/01/19 00:00 104 03/01/19 00:00 Simple Mask 6.0 Simple Mask 6.0 02/28/19 23:30 99 26 117/39 (65) 88 02/28/19 23:29 100 25 100 Cool Aerosol 6.0 28 02/28/19 23:18 99 26 100 Cool Aerosol 6.0 28 02/28/19 23:00 117/39 02/28/19 23:00 95 26 119/56 (77) 99 02/28/19 22:30 94 23 118/41 (66) 97 02/28/19 22:00 100 27 105/33 (57) 99 02/28/19 22:00 116/33 02/28/19 21:30 100 27 116/33 (60) 97 02/28/19 21:00 114/39 02/28/19 21:00 98 24 114/39 (64) 98 02/28/19 20:30 98 26 110/40 (63) 100 02/28/19 20:00 98 02/28/19 20:00 Simple Mask 6.0 Simple Mask 6.0 02/28/19 20:00 109/41 02/28/19 20:00 98 29 109/41 (63) 99 02/28/19 19:30 91/31 02/28/19 19:30 99.0 99 28 91/31 (51) 99 02/28/19 19:22 102 25 100 Cool Aerosol 6.0 28 02/28/19 19:21 94/37 02/28/19 19:12 102 26 100 Cool Aerosol 6.0 28 02/28/19 19:00 94 26 105/33 (57) 99 02/28/19 19:00 105/33 02/28/19 18:30 100 24 114/48 (70) 97 02/28/19 18:00 102 25 114/48 (70) 97 02/28/19 18:00 114/48 02/28/19 17:30 102 24 104/37 (59) 96 02/28/19 17:00 103 24 114/45 (68) 100 02/28/19 17:00 108/52 02/28/19 16:30 99 24 108/52 (70) 98 02/28/19 16:00 Simple Mask 6.0 02/28/19 16:00 103 02/28/19 16:00 103/27 02/28/19 16:00 98.9 103 27 108/52 (70) 96 02/28/19 15:30 99 32 91/42 (58) 100 02/28/19 15:15 105 28 99 Cool Aerosol 6.0 28 02/28/19 15:07 103 26 97 Cool Aerosol 6.0 28 02/28/19 15:00 100 25 108/47 (67) 94 02/28/19 15:00 108/51 02/28/19 14:30 100 26 108/51 (70) 96 02/28/19 14:00 103 26 108/47 (67) 99 02/28/19 14:00 108/47 02/28/19 14:00 20 Room Air 02/28/19 13:30 100 25 108/47 (67) 99 02/28/19 13:00 104 27 103/46 (65) 97 02/28/19 13:00 103/46 02/28/19 12:30 Venturi Mask 6.0 100 02/28/19 12:30 Simple Mask 6.0 02/28/19 12:30 116 24 95/57 (70) 99 02/28/19 12:00 98.9 109 29 103/41 (61) 100 02/28/19 12:00 109 02/28/19 12:00 95/57 02/28/19 12:00 Mechanical Ventilator 02/28/19 12:00 30 02/28/19 11:05 108 30 99 Mechanical Ventilator 30 02/28/19 11:00 107/43 02/28/19 11:00 108 30 107/43 (64) 100 02/28/19 10:58 107 30 99 Mechanical Ventilator 30 Height (Feet): 5 Height (Inches): 8.00 Weight (Pounds): 194 Objective General Appearance: lethargic, moderate distress Lines, tubes and drains: peripheral, central line, gtube HEENT: normocephalic, atraumatic, anicteric, mucous membranes moist, PERRL, EOMI, pharynx normal, supple, no JVD Neck: non-tender, normal alignment, supple, normal inspection Respiratory/Chest: accessory muscle use, crackles/rales, rhonchi - bilaterally , rhonchi - left Cardiovascular/Chest: normal peripheral pulses, regular rhythm, tachycardia Abdomen: normal bowel sounds, non tender, soft, no organomegaly, no mass Extremities: normal range of motion, non-tender, normal inspection, no calf tenderness, normal capillary refill, non-pitting Skin Exam: normal pigmentation, warm/dry, cyanotic Neurologic: sensory deficit, unresponsiveness Laboratory Tests Test 02/28/19 12:12 03/01/19 04:00 Lactic Acid Level 1.90 mmol/L (0.4-2.0) Troponin I 0.016 ng/mL (0.000-0.056) Random Vancomycin Level 26.0 ug/mL 20.2 ug/mL White Blood Count 12.9 K/UL (4.8-10.8) H Red Blood Count 2.56 M/UL (4.20-5.40) L Hemoglobin 8.2 G/DL (12.0-16.0) L Hematocrit 26.5 % (37.0-47.0) L Mean Corpuscular Volume 104 FL (80-99) H Mean Corpuscular Hemoglobin 32.2 PG (27.0-31.0) H Mean Corpuscular Hemoglobin Concent 31.1 G/DL (32.0-36.0) L Red Cell Distribution Width 15.3 % (11.6-14.8) H Platelet Count 116 K/UL (150-450) L Mean Platelet Volume 11.3 FL (6.5-10.1) H Neutrophils (%) (Auto) 76.6 % (45.0-75.0) H Lymphocytes (%) (Auto) 16.9 % (20.0-45.0) L Monocytes (%) (Auto) 5.5 % (1.0-10.0) Eosinophils (%) (Auto) 0.6 % (0.0-3.0) Basophils (%) (Auto) 0.5 % (0.0-2.0) Sodium Level 152 MMOL/L (136-145) H Potassium Level 2.9 MMOL/L (3.5-5.1) L Chloride Level 120 MMOL/L (98-107) H Carbon Dioxide Level 20 MMOL/L (21-32) L Anion Gap 12 mmol/L (5-15) Blood Urea Nitrogen 29 mg/dL (7-18) H Creatinine 1.6 MG/DL (0.55-1.30) H Estimat Glomerular Filtration Rate mL/min (>60) Glucose Level 166 MG/DL (74-106) H Calcium Level 7.8 MG/DL (8.5-10.1) L Current Medications Medications (Trade) Dose Ordered Sig/Chandu Route PRN Reason Start Time Stop Time Status Last Admin Dose Admin Acetaminophen (Tylenol) 650 mg Q4H PRN GT Temp > 100.5 02/23/19 17:00 03/25/19 16:59 02/25/19 17:13 Albuterol/ Ipratropium (Albuterol/ Ipratropium) 3 ml Q4HRT HHN 02/28/19 15:00 03/14/19 16:00 03/01/19 03:26 Ascorbic Acid (Vitamin C) 500 mg DAILY ORAL 02/24/19 09:00 03/26/19 08:59 03/01/19 08:53 Atorvastatin Calcium (Lipitor) 10 mg BEDTIME ORAL 02/23/19 21:00 03/25/19 20:59 02/28/19 21:05 Bethanechol Chloride (Urecholine) 5 mg THREE TIMES A DAY ORAL 02/23/19 18:00 03/25/19 17:59 03/01/19 08:53 Chlorhexidine Gluconate (Sue-Hex 2%) 1 applic DAILY@2000 TOPIC 02/23/19 20:00 03/25/19 19:59 02/28/19 21:05 Dextrose 1,000 ml @ 75 mls/hr [id number] IV 02/28/19 11:15 03/30/19 11:14 03/01/19 02:10 Dextrose (Dextrose 50%) 25 ml Q30M PRN IV Hypoglycemia 02/23/19 11:45 03/25/19 11:44 Dextrose (Dextrose 50%) 50 ml Q30M PRN IV Hypoglycemia 02/23/19 11:45 03/25/19 11:44 Docusate Sodium (Colace) 100 mg BID ORAL 02/27/19 09:00 03/29/19 08:59 03/01/19 08:53 Insulin Aspart (NovoLOG) Q6HR SUBQ 02/26/19 18:00 03/25/19 15:29 03/01/19 06:10 Lactulose (Cephulac) 20 gm DAILY ORAL 03/01/19 09:00 03/29/19 08:59 Memantine (Namenda) 10 mg Q12HR ORAL 02/23/19 21:00 03/25/19 20:59 03/01/19 08:53 Meropenem 1 gm/ Sodium Chloride 55 ml @ 110 mls/hr Q12HR@0600,1800 IVPB 02/24/19 18:00 03/05/19 23:00 03/01/19 06:04 Metoclopramide HCl (Reglan) 5 mg Q6H PRN IVP Nausea & Vomiting 03/01/19 08:45 03/31/19 08:44 Mineral Oil (Mineral Oil) 30 ml DAILYPRN PRN ORAL Constipation 02/25/19 16:42 03/27/19 16:41 02/25/19 17:13 Multivitamins (Multivitamins W/ Minerals 15ml Liquid) 15 ml DAILY GT 02/24/19 09:00 03/26/19 08:59 03/01/19 08:53 Norepinephrine Bitartrate 8 mg/ Dextrose 500 ml @ 0 mls/hr Q24H IV 02/24/19 23:00 03/26/19 22:59 03/01/19 08:52 Pantoprazole (Protonix) 40 mg DAILY IVP 02/24/19 09:00 03/26/19 08:59 02/28/19 08:52 Polyethylene Glycol (Miralax) 17 gm DAILYPRN PRN ORAL Constipation 02/23/19 12:15 03/25/19 12:14 02/26/19 08:04 Potassium Chloride 100 ml @ 50 mls/hr Q2H IVPB 03/01/19 09:00 03/01/19 12:59 03/01/19 08:53 Vancomycin HCl (Vanco rx to dose) 1 ea DAILY PRN MISC Per rx protocol 02/27/19 19:30 03/29/19 19:29 Vancomycin HCl 1.25 gm/Sodium Chloride 275 ml @ 183.33 mls/ hr ONCE IVPB 03/01/19 21:00 03/01/19 22:00 Frances Chavarria M.D. Mar 01, 2019 10:48
[2019-03-01] MEDS ORDERED: NS 275ml ONE (10:54)
[2019-03-01] MEDS ORDERED: Tubing IV Secondary IV ONE (10:54)
[2019-03-01] MEDS: Pantoprazole Inj IVP SCH (11:29)
--- NOTE | 2019-03-01 12:20 | NUR ---
NURSE NOTES: Dr García in nursing station, entering orders. Discussed pt's current condition with him. BP 106/45 on Levo at 4mcg/min. Will continue to monitor.
--- NOTE | 2019-03-01 12:23 | Nephrology Progress Note ---
Assessment/Plan Status: stable Assessment/Plan: A/P 1) Septic Shock- Elevated WBC improving everyday - Abx mgmt per ID. 2/ PNA - levophed for MAP >60 mmHg - Ns bolus 2) Resp FL- mgmt per Dr Ashton. Extubated 3) Hypernatremia- improved 171---164---157---147--150--152 - increase D5W 4) NAOMY- Cr and BUN much improved. Resolving ATN 5) E- ABN- replace K+/Mg Phos as needed 6) DVT prophylaxis- with SCDs Subjective Date patient seen: Mar 01, 2019 Time patient seen: 12:21 ROS Limited/Unobtainable: No Allergies: Coded Allergies: SULFA (SULFONAMIDE ANTIBIOTICS) (Unverified Allergy, Unknown, 09/30/18) COPIED FROM UNCODED Uncoded Allergies: SULFA (Allergy, Unknown, 11/20/18) Subjective Patient now extubated, awake, more alert Objective Last 24 Hour Vital Signs Date Time Temp Pulse Resp B/P (MAP) Pulse Ox O2 Delivery O2 Flow Rate FiO2 03/01/19 11:30 110 29 122/60 (80) 97 03/01/19 11:14 Room Air 03/01/19 11:14 Room Air 03/01/19 11:00 101 27 100/37 (58) 97 03/01/19 10:30 99 25 105/38 (60) 98 03/01/19 10:00 99 25 90/32 (51) 97 03/01/19 09:30 98 24 94/31 (52) 97 03/01/19 09:00 98 27 101/46 (64) 93 03/01/19 08:52 100/48 03/01/19 08:45 106 27 100/48 (65) 97 03/01/19 08:30 102 25 100/48 (65) 96 03/01/19 08:15 100 33 95/36 (55) 96 03/01/19 08:00 98.0 99 28 95/36 (55) 97 03/01/19 08:00 Room Air Room Air 03/01/19 07:30 99 23 101/38 (59) 95 03/01/19 07:00 103 22 112/46 (68) 96 03/01/19 07:00 112/46 8/9/19 06:30 105 23 112/46 (68) 96 03/01/19 06:00 119/49 03/01/19 06:00 99.1 105 25 119/49 (72) 96 03/01/19 05:30 105 23 123/64 (83) 96 03/01/19 05:00 110/50 03/01/19 05:00 100 22 125/53 (77) 96 03/01/19 04:30 103 22 110/55 (73) 97 03/01/19 04:00 96 19 107/42 (63) 95 03/01/19 04:00 Simple Mask 6.0 Simple Mask 6.0 03/01/19 04:00 107/42 03/01/19 04:00 104 03/01/19 03:35 101 26 100 Cool Aerosol 6.0 28 03/01/19 03:30 94 21 115/38 (63) 97 03/01/19 03:26 97 20 98 Cool Aerosol 6.0 28 03/01/19 03:00 95 26 110/52 (71) 97 03/01/19 03:00 120/50 03/01/19 02:30 102 28 138/70 (92) 03/01/19 02:00 138/70 03/01/19 02:00 95 27 117/44 (68) 99 03/01/19 01:30 99 32 118/47 (70) 91 03/01/19 01:00 118/47 03/01/19 01:00 94 21 111/45 (67) 100 03/01/19 00:30 98 26 123/49 (73) 75 03/01/19 00:00 99 28 107/35 (59) 86 03/01/19 00:00 123/49 03/01/19 00:00 104 03/01/19 00:00 Simple Mask 6.0 Simple Mask 6.0 02/28/19 23:30 99 26 117/39 (65) 88 02/28/19 23:29 100 25 100 Cool Aerosol 6.0 28 02/28/19 23:18 99 26 100 Cool Aerosol 6.0 28 02/28/19 23:00 117/39 02/28/19 23:00 95 26 119/56 (77) 99 02/28/19 22:30 94 23 118/41 (66) 97 02/28/19 22:00 100 27 105/33 (57) 99 02/28/19 22:00 116/33 02/28/19 21:30 100 27 116/33 (60) 97 02/28/19 21:00 114/39 02/28/19 21:00 98 24 114/39 (64) 98 02/28/19 20:30 98 26 110/40 (63) 100 02/28/19 20:00 98 02/28/19 20:00 Simple Mask 6.0 Simple Mask 6.0 02/28/19 20:00 109/41 02/28/19 20:00 98 29 109/41 (63) 99 02/28/19 19:30 91/31 02/28/19 19:30 99.0 99 28 91/31 (51) 99 02/28/19 19:22 102 25 100 Cool Aerosol 6.0 28 02/28/19 19:21 94/37 02/28/19 19:12 102 26 100 Cool Aerosol 6.0 28 02/28/19 19:00 94 26 105/33 (57) 99 02/28/19 19:00 105/33 02/28/19 18:30 100 24 114/48 (70) 97 02/28/19 18:00 102 25 114/48 (70) 97 02/28/19 18:00 114/48 02/28/19 17:30 102 24 104/37 (59) 96 02/28/19 17:00 103 24 114/45 (68) 100 02/28/19 17:00 108/52 02/28/19 16:30 99 24 108/52 (70) 98 02/28/19 16:00 Simple Mask 6.0 02/28/19 16:00 103 02/28/19 16:00 103/27 02/28/19 16:00 98.9 103 27 108/52 (70) 96 02/28/19 15:30 99 32 91/42 (58) 100 02/28/19 15:15 105 28 99 Cool Aerosol 6.0 28 02/28/19 15:07 103 26 97 Cool Aerosol 6.0 28 02/28/19 15:00 100 25 108/47 (67) 94 02/28/19 15:00 108/51 02/28/19 14:30 100 26 108/51 (70) 96 02/28/19 14:00 103 26 108/47 (67) 99 02/28/19 14:00 108/47 02/28/19 14:00 20 Room Air 02/28/19 13:30 100 25 108/47 (67) 99 02/28/19 13:00 104 27 103/46 (65) 97 02/28/19 13:00 103/46 02/28/19 12:30 Venturi Mask 6.0 100 02/28/19 12:30 Simple Mask 6.0 02/28/19 12:30 116 24 95/57 (70) 99 Intake and Output 02/28/19 03/01/19 19:00 07:00 Intake Total 3149 ml 1646.25 ml Output Total 1500 ml 2100 ml Balance 1649 ml -453.75 ml Free Water 150 ml IV Total 2769 ml 1446.25 ml Tube Feeding 230 ml 200 ml Output Urine Total 1500 ml 2100 ml # Bowel Movements 4 3 Laboratory Tests 03/01/19 04:00: White Blood Count 12.9H, Red Blood Count 2.56L, Hemoglobin 8.2L, Hematocrit 26.5L, Mean Corpuscular Volume 104H, Mean Corpuscular Hemoglobin 32.2H, Mean Corpuscular Hemoglobin Concent 31.1L, Red Cell Distribution Width 15.3H, Platelet Count 116L, Mean Platelet Volume 11.3H, Neutrophils (%) (Auto) 76.6H, Lymphocytes (%) (Auto) 16.9L, Monocytes (%) (Auto) 5.5, Eosinophils (%) (Auto) 0.6, Basophils (%) (Auto) 0.5, Sodium Level 152H, Potassium Level 2.9L, Chloride Level 120H, Carbon Dioxide Level 20L, Anion Gap 12, Blood Urea Nitrogen 29H, Creatinine 1.6H, Estimat Glomerular Filtration Rate , Glucose Level 166H, Calcium Level 7.8L, Random Vancomycin Level 20.2 Height (Feet): 5 Height (Inches): 8.00 Weight (Pounds): 194 General Appearance: no apparent distress EENT: normal ENT inspection Neck: normal alignment, supple Cardiovascular: normal rate, regular rhythm Respiratory/Chest: rhonchi - bilaterally Abdomen: non tender, soft Edema: no edema noted Arm (L), no edema noted Arm (R), no edema noted Leg (L), no edema noted Leg (R), no edema noted Pedal (L), no edema noted Pedal (R), no edema noted Generalized Jakub García MD Mar 01, 2019 12:23
--- NOTE | 2019-03-01 13:50 | Diagnostic Imaging Report ---
Indication: Chest pain, shortness of breath Technique: XRAY Chest 1v Comparison: 02/25/2019 Findings: Interval removal of the endotracheal tube. Right transjugular central line remains in place with the tip in satisfactory position. Heart size and mediastinal contours are stable. There is worsening of aeration with increased hazy opacities in the bilateral lower lungs. The pulmonary vascularity appears slightly more indistinct. There is blunting left costophrenic sulcus. Osseous structures are stable. Impression: * Interval removal of endotracheal tube. * Worsening of aeration with increased haziness of the pulmonary vascularity suggesting development of mild interstitial edema/fluid overload. * Bibasilar airspace opacities also increased which may be related to worsening subsegmental atelectasis or worsening pneumonia. Correlate clinically. * Small left pleural effusion is suggested.
--- NOTE | 2019-03-01 13:53 | Diagnostic Imaging Report ---
Indication: Abdominal pain Technique: XRAY Abdomen 1v Comparison: 02/25/2019 Findings: Stool is noted in the rectum although slightly decreased compared to prior. More stool is noted in the right colon compared to the prior exam. The sigmoid appears redundant but not distended. A enteric tube is noted projecting over the right abdomen, likely in the distal stomach given patient rotation. Osseous structures stable. Impression: Interval decreased stool in the rectum compared to prior.
[2019-03-01] MEDS: D5W w/KCl 20mEq 1,000 ML IV SCH (14:16)
--- NOTE | 2019-03-01 14:30 | NUR ---
NURSE NOTES: Turned and repositioned pt. Oral care done. Breathing treatment given by RT. No acute distress noted.
--- NOTE | 2019-03-01 14:50 | NUR ---
RD ASSESSMENT & RECOMMENDATIONS SEE CARE ACTIVITY FOR COMPLETE ASSESSMENT DAILY ESTIMATED NEEDS: Needs based on pulmonary, sepsis, DM, 67.5kg abw 25-30 kcals/kg 7826-4226 total kcals 1-2 g protein/kg 68-135 g total protein 25-30 mL/kg 4104-7629 total fluid mLs NUTRITION DIAGNOSIS: 1) Swallowing difficulty R/T dysphagia as evidenced by pt is GT dep, now s/p intubation. 2) Altered nutrition related lab values R/T sepsis, critical care, DM, as evidenced by critically elev Na (164-> 152), elev BUN(90-> 29trend down), elev creat (2.2-> 1.6), elev BGs (400's-> POC glu in the 200's), elev POC, Uglu 4+ on adm, elev wbc (12.9 trend down), now afebrile, low BP, on pressor support CURRENT TF:Glucerna 1.2 @ 60ml x 24 hrs ENTERAL NUTRITION RECOMMENDATIONS: Glucerna 1.2 @ 60ml/hr x24 hrs to provide 1440ml, 1728kcal, 86g prot, 1159ml free water - W/ hemodynamic stability, continue to increase TF by 10ml/hr q 4-6 hrs to goal of 60ml/hr to meet est needs - Flush per MD/ HOB over 30 degrees WITHOUT HEMODYNAMIC STABILITY, REC TROPHIC FEEDING OF GLUCERNA 1.2 @ 15-20ML/HR ADDITIONAL RECOMMENDATIONS: 1) Calibrated bedscale wt 2) Check lytes daily, replete as needed (K low) 3) F/ up w/ WC eval for coccyx wound 4) Monitor BGs closely - > rec LONG ACTING INSULIN, DC D5 IVF (increase water flushes instead) 5) Consider lipid lowering agent (triglycerides >600) 6) Rec [id number] Reglan w/ continued residuals.
--- NOTE | 2019-03-01 16:09 | NUR ---
SS note This SW followed up with daughter, Aurelia @ [phone] regarding Hospice upon discharge; awaiting call return at this time. Granddaughter, Muriel @ [phone] does not answer, no voicemail available at this time.
--- NOTE | 2019-03-01 16:30 | NUR ---
NURSE NOTES: Temp 99.1. [place] removed. Cleaned pt for moderate amount of soft pasty brown BM. Pt is still resistive to care. Reorientation given. BP 112/55 at Levo 4mcg/min. Will continue to monitor.
--- NOTE | 2019-03-01 17:11 | NUR ---
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
--- NOTE | 2019-03-01 18:38 | Pulmonolgy Critical Care Note ---
Critical Care - Asmt/Plan Assessment/Plan: Pulmonary CCM Progress Note HPI Patient is an 84-year-old female admitted with Pneumonia, Dehydration from LA, noted to have increased fever and altered mental status. Patient had been noted to be more obtunded. She had prior history of dementia. Patient was noted to have fever up to 100.6. Patient was brought to the hospital and was noted to be hypotensive by EMS and was started on IV fluids. She had prior history of G-tube dependence. History is limited by patient's mental status and confusion. Patient was noted to have blood sugar greater than 200 initially. Hypernatremia improving. Allergies: SULFA (SULFONAMIDE ANTIBIOTICS) PMH: CHF, Hypertension, Diabetes type 2, Dementia Impression: Pneumonia Severe sepsis Respiratory failure Dehydration Hypernatremia Ethmoid sinusitis Diabetes Acute renal failure leukocytosis protein calorie malnutrition Plan care noted IV antibiotics; monitor cultures respiratory care supportive care as outlined suction as needed oxygen therapy medications/laboratory data/nursing notes/ICU care reviewed in detail note reviewed and edited care discussed with RN and RT ICU time spent 40 minutes Critical Care - Subjective Interval Events: remains ill care noted and reviewed Extubated Vital signs noted: Labs noted Objective: WDWN obese clear breath sounds bilaterally without rhonchi or wheeze [id number] without MRG NABS nontender no HSM no CCE Micro: Microbiology Date/Time Source Procedure Growth Status 02/24/19 07:40 Sputum Induced Gram Stain - Final Resulted 02/24/19 07:40 Sputum Culture - Preliminary Gram Negative Jefry Resulted 02/24/19 16:00 Indwelling Cath Urine Culture - Preliminary NO GROWTH AFTER 24 HOURS Resulted Critical Care - Objective Last 24 Hour Vital Signs Date Time Temp Pulse Resp B/P (MAP) Pulse Ox O2 Delivery O2 Flow Rate FiO2 03/01/19 18:15 99 26 106/50 (68) 97 03/01/19 18:00 107 22 135/55 (81) 98 03/01/19 17:30 98 31 118/51 (73) 97 03/01/19 17:15 96 27 120/50 (73) 97 03/01/19 17:00 96 29 111/47 (68) 97 03/01/19 16:45 96 27 112/55 (74) 97 03/01/19 16:30 99.1 95 26 115/55 (75) 96 03/01/19 16:15 98 27 115/48 (70) 96 03/01/19 16:00 Room Air Room Air 03/01/19 16:00 99 26 105/52 (69) 97 03/01/19 15:42 105 03/01/19 15:30 100 26 123/51 (75) 97 03/01/19 15:19 Room Air 03/01/19 15:19 Room Air 03/01/19 15:00 101 33 114/45 (68) 94 03/01/19 14:30 102 30 115/45 (68) 97 03/01/19 14:00 99 27 111/44 (66) 98 03/01/19 14:00 119/44 03/01/19 14:00 100 30 109/46 (67) 97 03/01/19 13:30 99 27 111/44 (66) 98 03/01/19 13:00 98.1 102 36 102/47 (65) 97 03/01/19 13:00 111/44 03/01/19 12:30 98 25 106/45 (65) 96 03/01/19 12:00 100 26 93/31 (51) 97 03/01/19 12:00 106/45 03/01/19 12:00 Room Air Room Air 03/01/19 11:46 100 03/01/19 11:30 110 29 122/60 (80) 97 03/01/19 11:14 Room Air 03/01/19 11:14 Room Air 03/01/19 11:00 122/60 03/01/19 11:00 101 27 100/37 (58) 97 03/01/19 10:30 99 25 105/38 (60) 98 03/01/19 10:00 99 25 90/32 (51) 97 03/01/19 10:00 105/38 03/01/19 09:30 98 24 94/31 (52) 97 03/01/19 09:00 94/31 03/01/19 09:00 98 27 101/46 (64) 93 03/01/19 08:52 100/48 03/01/19 08:45 106 27 100/48 (65) 97 03/01/19 08:30 102 25 100/48 (65) 96 03/01/19 08:15 100 33 95/36 (55) 96 03/01/19 08:00 98.0 99 28 95/36 (55) 97 03/01/19 08:00 95/36 03/01/19 08:00 Room Air Room Air 03/01/19 07:41 97 03/01/19 07:30 99 23 101/38 (59) 95 03/01/19 07:00 103 22 112/46 (68) 96 03/01/19 07:00 112/46 03/01/19 06:30 105 23 112/46 (68) 96 03/01/19 06:00 119/49 03/01/19 06:00 99.1 105 25 119/49 (72) 96 03/01/19 05:30 105 23 123/64 (83) 96 03/01/19 05:00 110/50 03/01/19 05:00 100 22 125/53 (77) 96 03/01/19 04:30 103 22 110/55 (73) 97 03/01/19 04:00 96 19 107/42 (63) 95 03/01/19 04:00 Simple Mask 6.0 Simple Mask 6.0 03/01/19 04:00 107/42 03/01/19 04:00 104 03/01/19 03:35 101 26 100 Cool Aerosol 6.0 28 03/01/19 03:30 94 21 115/38 (63) 97 03/01/19 03:26 97 20 98 Cool Aerosol 6.0 28 03/01/19 03:00 95 26 110/52 (71) 97 03/01/19 03:00 120/50 03/01/19 02:30 102 28 138/70 (92) 03/01/19 02:00 138/70 03/01/19 02:00 95 27 117/44 (68) 99 03/01/19 01:30 99 32 118/47 (70) 91 03/01/19 01:00 118/47 03/01/19 01:00 94 21 111/45 (67) 100 03/01/19 00:30 98 26 123/49 (73) 75 03/01/19 00:00 99 28 107/35 (59) 86 03/01/19 00:00 123/49 03/01/19 00:00 104 03/01/19 00:00 Simple Mask 6.0 Simple Mask 6.0 02/28/19 23:30 99 26 117/39 (65) 88 02/28/19 23:29 100 25 100 Cool Aerosol 6.0 28 02/28/19 23:18 99 26 100 Cool Aerosol 6.0 28 02/28/19 23:00 117/39 02/28/19 23:00 95 26 119/56 (77) 99 02/28/19 22:30 94 23 118/41 (66) 97 02/28/19 22:00 100 27 105/33 (57) 99 02/28/19 22:00 116/33 02/28/19 21:30 100 27 116/33 (60) 97 02/28/19 21:00 114/39 02/28/19 21:00 98 24 114/39 (64) 98 02/28/19 20:30 98 26 110/40 (63) 100 02/28/19 20:00 98 02/28/19 20:00 Simple Mask 6.0 Simple Mask 6.0 02/28/19 20:00 109/41 02/28/19 20:00 98 29 109/41 (63) 99 02/28/19 19:30 91/31 02/28/19 19:30 99.0 99 28 91/31 (51) 99 02/28/19 19:22 102 25 100 Cool Aerosol 6.0 28 02/28/19 19:21 94/37 02/28/19 19:12 102 26 100 Cool Aerosol 6.0 28 02/28/19 19:00 94 26 105/33 (57) 99 02/28/19 19:00 105/33 Accucheck: 177 Critical Care - Subjective ROS Limited/Unobtainable: No FI02: 28 Vent Support Breath Rate: 12 Vent Support Mode: CPAP Vent Tidal Volume: 400 Sputum Amount: Scant PEEP: 5.0 PIP: 14 Tube Feeding Amount: 40 I&O: Intake and Output 02/28/19 03/01/19 19:00 07:00 Intake Total 3149 ml 1646.25 ml Output Total 1500 ml 2100 ml Balance 1649 ml -453.75 ml Free Water 150 ml IV Total 2769 ml 1446.25 ml Tube Feeding 230 ml 200 ml Output Urine Total 1500 ml 2100 ml # Bowel Movements 4 3 ET-Tube: 7.0 ET Position: 22 Robert Cadena MD Mar 01, 2019 18:38
--- NOTE | 2019-03-01 19:16 | Surgery Progress Note ---
Surgery Progress Note Subjective Symptoms: other Additional Comments had BM Objective Last 24 Hour Vital Signs Date Time Temp Pulse Resp B/P (MAP) Pulse Ox O2 Delivery O2 Flow Rate FiO2 03/01/19 18:53 95 22 98 Room Air 03/01/19 18:15 99 26 106/50 (68) 97 03/01/19 18:00 107 22 135/55 (81) 98 03/01/19 17:30 98 31 118/51 (73) 97 03/01/19 17:15 96 27 120/50 (73) 97 03/01/19 17:00 96 29 111/47 (68) 97 03/01/19 16:45 96 27 112/55 (74) 97 03/01/19 16:30 99.1 95 26 115/55 (75) 96 03/01/19 16:15 98 27 115/48 (70) 96 03/01/19 16:00 Room Air Room Air 03/01/19 16:00 99 26 105/52 (69) 97 03/01/19 15:42 105 03/01/19 15:30 100 26 123/51 (75) 97 03/01/19 15:19 Room Air 03/01/19 15:19 Room Air 03/01/19 15:00 101 33 114/45 (68) 94 03/01/19 14:30 102 30 115/45 (68) 97 03/01/19 14:00 99 27 111/44 (66) 98 03/01/19 14:00 119/44 03/01/19 14:00 100 30 109/46 (67) 97 03/01/19 13:30 99 27 111/44 (66) 98 03/01/19 13:00 98.1 102 36 102/47 (65) 97 03/01/19 13:00 111/44 03/01/19 12:30 98 25 106/45 (65) 96 03/01/19 12:00 100 26 93/31 (51) 97 03/01/19 12:00 106/45 03/01/19 12:00 Room Air Room Air 03/01/19 11:46 100 03/01/19 11:30 110 29 122/60 (80) 97 03/01/19 11:14 Room Air 03/01/19 11:14 Room Air 03/01/19 11:00 122/60 03/01/19 11:00 101 27 100/37 (58) 97 03/01/19 10:30 99 25 105/38 (60) 98 03/01/19 10:00 99 25 90/32 (51) 97 03/01/19 10:00 105/38 03/01/19 09:30 98 24 94/31 (52) 97 03/01/19 09:00 94/31 03/01/19 09:00 98 27 101/46 (64) 93 03/01/19 08:52 100/48 03/01/19 08:45 106 27 100/48 (65) 97 03/01/19 08:30 102 25 100/48 (65) 96 03/01/19 08:15 100 33 95/36 (55) 96 03/01/19 08:00 98.0 99 28 95/36 (55) 97 03/01/19 08:00 95/36 03/01/19 08:00 Room Air Room Air 03/01/19 07:41 97 03/01/19 07:30 99 23 101/38 (59) 95 03/01/19 07:00 103 22 112/46 (68) 96 03/01/19 07:00 112/46 03/01/19 06:30 105 23 112/46 (68) 96 03/01/19 06:00 119/49 03/01/19 06:00 99.1 105 25 119/49 (72) 96 03/01/19 05:30 105 23 123/64 (83) 96 03/01/19 05:00 110/50 03/01/19 05:00 100 22 125/53 (77) 96 03/01/19 04:30 103 22 110/55 (73) 97 03/01/19 04:00 96 19 107/42 (63) 95 03/01/19 04:00 Simple Mask 6.0 Simple Mask 6.0 03/01/19 04:00 107/42 03/01/19 04:00 104 03/01/19 03:35 101 26 100 Cool Aerosol 6.0 28 03/01/19 03:30 94 21 115/38 (63) 97 03/01/19 03:26 97 20 98 Cool Aerosol 6.0 28 03/01/19 03:00 95 26 110/52 (71) 97 03/01/19 03:00 120/50 03/01/19 02:30 102 28 138/70 (92) 03/01/19 02:00 138/70 03/01/19 02:00 95 27 117/44 (68) 99 03/01/19 01:30 99 32 118/47 (70) 91 03/01/19 01:00 118/47 03/01/19 01:00 94 21 111/45 (67) 100 03/01/19 00:30 98 26 123/49 (73) 75 03/01/19 00:00 99 28 107/35 (59) 86 03/01/19 00:00 123/49 03/01/19 00:00 104 03/01/19 00:00 Simple Mask 6.0 Simple Mask 6.0 02/28/19 23:30 99 26 117/39 (65) 88 02/28/19 23:29 100 25 100 Cool Aerosol 6.0 28 02/28/19 23:18 99 26 100 Cool Aerosol 6.0 28 02/28/19 23:00 117/39 02/28/19 23:00 95 26 119/56 (77) 99 02/28/19 22:30 94 23 118/41 (66) 97 02/28/19 22:00 100 27 105/33 (57) 99 02/28/19 22:00 116/33 02/28/19 21:30 100 27 116/33 (60) 97 02/28/19 21:00 114/39 02/28/19 21:00 98 24 114/39 (64) 98 02/28/19 20:30 98 26 110/40 (63) 100 02/28/19 20:00 98 02/28/19 20:00 Simple Mask 6.0 Simple Mask 6.0 02/28/19 20:00 109/41 02/28/19 20:00 98 29 109/41 (63) 99 02/28/19 19:30 91/31 02/28/19 19:30 99.0 99 28 91/31 (51) 99 02/28/19 19:22 102 25 100 Cool Aerosol 6.0 28 02/28/19 19:21 94/37 I&O Intake and Output 02/28/19 03/01/19 19:00 07:00 Intake Total 3149 ml 1646.25 ml Output Total 1500 ml 2100 ml Balance 1649 ml -453.75 ml Free Water 150 ml IV Total 2769 ml 1446.25 ml Tube Feeding 230 ml 200 ml Output Urine Total 1500 ml 2100 ml # Bowel Movements 4 3 Dressing: saturated Wound: clean Cardiovascular: RSR Respiratory: clear Abdomen: soft, present bowel sounds Extremities: no cyanosis Laboratory Tests Test 03/01/19 04:00 White Blood Count 12.9 K/UL (4.8-10.8) H Red Blood Count 2.56 M/UL (4.20-5.40) L Hemoglobin 8.2 G/DL (12.0-16.0) L Hematocrit 26.5 % (37.0-47.0) L Mean Corpuscular Volume 104 FL (80-99) H Mean Corpuscular Hemoglobin 32.2 PG (27.0-31.0) H Mean Corpuscular Hemoglobin Concent 31.1 G/DL (32.0-36.0) L Red Cell Distribution Width 15.3 % (11.6-14.8) H Platelet Count 116 K/UL (150-450) L Mean Platelet Volume 11.3 FL (6.5-10.1) H Neutrophils (%) (Auto) 76.6 % (45.0-75.0) H Lymphocytes (%) (Auto) 16.9 % (20.0-45.0) L Monocytes (%) (Auto) 5.5 % (1.0-10.0) Eosinophils (%) (Auto) 0.6 % (0.0-3.0) Basophils (%) (Auto) 0.5 % (0.0-2.0) Sodium Level 152 MMOL/L (136-145) H Potassium Level 2.9 MMOL/L (3.5-5.1) L Chloride Level 120 MMOL/L (98-107) H Carbon Dioxide Level 20 MMOL/L (21-32) L Anion Gap 12 mmol/L (5-15) Blood Urea Nitrogen 29 mg/dL (7-18) H Creatinine 1.6 MG/DL (0.55-1.30) H Estimat Glomerular Filtration Rate mL/min (>60) Glucose Level 166 MG/DL (74-106) H Calcium Level 7.8 MG/DL (8.5-10.1) L Random Vancomycin Level 20.2 ug/mL Plan Problems: (1) Fecal impaction Assessment & Plan: patient with fecal impaction KUB noted unable to improve with enema and g tube Rx recommend manual disimpaction with assistance of nursing staff patient was turned and manual disimpaction performed at bedside. significant fecal retention in rectum past what my finger could reach. stool soft and not hard. rectum cleared of stool cont with oral rx and enema will perform manual prn will follow with recs thank you (2) Sepsis Assessment & Plan: leukocytosis lactic acidosis micro noted on vent support IV Abx as per ID will follow trend labs thank you Helio Salgado Mar 01, 2019 19:16
--- NOTE | 2019-03-01 19:20 | NUR ---
HAND-OFF: Report given to Henry Mata RN.
--- NOTE | 2019-03-01 19:25 | NUR ---
NURSE NOTES: Report received from DAKOTA Patel. Pt is awake, confused, and resistive to care. Unable to follow commands. On RA. O2 sat 97%. Wheezing and crackles noted. Pt is on scheduled breathing treatment. No labored breathing noted. Sinus tach 105 on willow analyst. G tube in place receiving Glucerna 1.2 at 50cc/hr goal to be at 60ml/hr. Will check residual. Scales in place draining to gravity. Right IJ TLC patent and asymptomatic. Pt is on Levo at 4mcg/min and D5W + 20meqKCl at 100cc/hr. Bed in lowest position. Side rails up x3. Will resume plan of care.
[2019-03-01] MEDS: Dyna-Hex 2% Top Sol 2oz TOPIC SCH (20:58)
[2019-03-01] MEDS ORDERED: Vancomycin 1.25gm Premix IVPB SCH (21:00)
[2019-03-01] MEDS ORDERED: Vancomycin 1.25 GM in NS 275 ML IVPB SCH (21:00)
--- NOTE | 2019-03-01 22:00 | NUR ---
NURSE NOTES: Pt's resting in bed, in no acute distress. VS stable will continue to monitor.
[2019-03-02] VITALS (26 sets, daily range): BP systolic 89–143; BP diastolic 39–62
--- NOTE | 2019-03-02 | NUR ---
NURSE NOTES: Pt's resting in bed, in no acute distress. VS stable. Will continue to monitor.
[2019-03-02] MEDS: D5W w/KCl 20mEq 1,000 ML IV SCH ×4 (00:16→21:13)
[2019-03-02] MEDS: NovoLOG Insulin Flexpen SUBQ SCH ×4 (00:25→17:20)
--- NOTE | 2019-03-02 02:00 | NUR ---
NURSE NOTES: Pt's resting in bed, in no acute distress. VS stable. Will continue to monitor.
[2019-03-02] MEDS: Albuterol/Ipratropium 3ml neb HHN SCH ×6 (03:18→23:00)
--- NOTE | 2019-03-02 05:00 | NUR ---
NURSE NOTES: Pt's resting in bed, in no acute distress. VS stable. Levophed is off, BP 114/46. Will continue to monitor.
[2019-03-02] MEDS: Meropenem 1 GM in NS 55 ML IVPB SCH ×2 (06:09→17:17)
[2019-03-02 06:28] LABS: BASOPHILS % (AUTO) 0.7 % (0.0-2.0); EOSINOPHILS % (AUTO) 0.4 % (0.0-3.0); HEMATOCRIT 25.6 % (37.0-47.0); LYMPHOCYTES % (AUTO) 24.3 % (20.0-45.0); MEAN CORPUSCULAR VOLUME 103 FL (80-99); MONOCYTES % (AUTO) 6.8 % (1.0-10.0); NEUTROPHILS % (AUTO) 67.8 % (45.0-75.0); PLATELET COUNT 113 K/UL (150-450); RED BLOOD COUNT 2.48 M/UL (4.20-5.40); RED CELL DISTRIBUTION WIDTH 15.5 % (11.6-14.8); WHITE BLOOD COUNT 8.7 K/UL (4.8-10.8)
--- NOTE | 2019-03-02 07:00 | NUR ---
HAND-OFF: Report given to DAKOTA Kim.
--- NOTE | 2019-03-02 07:12 | NUR ---
RESPIRATORY NOTE: pt refusing breathing tx by removing mask or blow-by tx. pushing my arm away so breathing tx was stopped early.
--- NOTE | 2019-03-02 07:15 | NUR ---
NURSE NOTES: Report received from Henry Mata RN.pt asleep noted no resp ditress on RA,no signs of pain or discomfort,S-Tach on the monitor,GTF Glucerna 1.2 at 60ml/hr,no residual noted,HOB elevated,IV site to Rt IJ TLC intact with IVF D5+20 meq KCL at 100ml/hr,skin warm and dry,SR up x2 bed lock in lowest position ,will continue with plans of care.
[2019-03-02 07:42] LABS: ANION GAP 11 mmol/L (5-15); BLOOD UREA NITROGEN 26 mg/dL (7-18); CALCIUM 8.1 MG/DL (8.5-10.1); CARBON DIOXIDE 22 MMOL/L (21-32); CHLORIDE 117 MMOL/L (98-107); CREATININE 1.5 MG/DL (0.55-1.30); POTASSIUM 3.2 MMOL/L (3.5-5.1); SODIUM 150 MMOL/L (136-145)
--- NOTE | 2019-03-02 08:25 | NUR ---
NURSE NOTES: Dr Davidson at bedside,seen pt ,okayed transfer of pt to [facility].
--- NOTE | 2019-03-02 09:17 | Critical Care Progress Note ---
Assessment/Plan Assessment/Plan Impression: Pneumonia Severe sepsis Respiratory failure Dehydration Hypernatremia Ethmoid sinusitis Diabetes Acute renal failure leukocytosis protein calorie malnutrition Plan ok to scotty supportive care as outlined suction as needed oxygen therapy prognosis guarded impression, plan, and exam edited and reviewed in detail care discussed with tire repairer - Subjective Interval Events: extubated stable awake on NC ROS Limited/Unobtainable: Yes Condition: improving EKG Rhythm: Sinus Rhythm Residuals: minimal Tube Feeding Tolerated: yes I&O: Intake and Output 03/01/19 03/02/19 19:00 07:00 Intake Total 2242.5 ml 1995.0 ml Output Total 1720 ml 1650 ml Balance 522.5 ml 345.0 ml Free Water 0 ml IV Total 1612.5 ml 1375.0 ml Tube Feeding 530 ml 620 ml Other 100 ml Output Urine Total 1720 ml 1650 ml # Bowel Movements 4 1 Critical Care - Objective ET-Tube: 7.0 ET Position: 22 Last 24 Hour Vital Signs Date Time Temp Pulse Resp B/P (MAP) Pulse Ox O2 Delivery O2 Flow Rate FiO2 03/02/19 08:00 Room Air Room Air 03/02/19 08:00 98.4 99 18 116/56 (76) 97 03/02/19 08:00 111 03/02/19 07:30 103 28 108/49 (68) 97 03/02/19 07:15 102 28 108/52 (70) 97 03/02/19 07:11 101 20 100 Room Air 21 03/02/19 07:08 103 18 98 Room Air 21 03/02/19 07:00 93 23 104/39 (60) 96 03/02/19 06:30 100 22 96 03/02/19 06:15 103 21 101/50 (67) 97 03/02/19 06:00 103 27 103/53 (70) 97 03/02/19 05:45 93 21 98/44 (62) 97 03/02/19 05:30 98 22 102/52 (69) 96 03/02/19 05:15 93 21 114/46 (68) 98 03/02/19 05:00 114/46 03/02/19 05:00 102 20 107/47 (67) 98 03/02/19 04:45 105 28 89/56 (67) 98 03/02/19 04:30 104 26 104/47 (66) 98 03/02/19 04:00 106 27 102/53 (69) 97 03/02/19 04:00 Room Air Room Air 03/02/19 04:00 110/48 03/02/19 04:00 95 03/02/19 03:30 104 27 115/58 (77) 97 03/02/19 03:28 102 20 99 Room Air 03/02/19 03:18 98 20 98 Room Air 03/02/19 03:00 96 26 104/62 (76) 97 03/02/19 03:00 115/58 03/02/19 02:30 97 23 121/48 (72) 98 03/02/19 02:00 121/48 03/02/19 01:59 96 24 105/45 (65) 96 03/02/19 01:30 96 24 111/45 (67) 96 03/02/19 01:00 105/49 03/02/19 01:00 99 22 111/50 (70) 97 03/02/19 00:30 102 24 93/43 (60) 96 03/02/19 00:00 101 03/02/19 00:00 Room Air Room Air 03/02/19 00:00 108/50 03/02/19 00:00 101 23 102/42 (62) 97 03/01/19 23:30 103 28 110/43 (65) 97 03/01/19 23:19 91 20 99 Room Air 03/01/19 23:03 92 20 97 Room Air 03/01/19 23:00 94 24 121/42 (68) 97 03/01/19 23:00 121/42 03/01/19 22:30 99 33 108/45 (66) 97 03/01/19 22:00 114/46 03/01/19 22:00 100 24 107/46 (66) 96 03/01/19 21:30 95 23 109/51 (70) 97 03/01/19 21:15 99 28 117/50 (72) 97 03/01/19 21:00 117/50 03/01/19 21:00 98 29 118/63 (81) 97 03/01/19 20:45 94 22 125/56 (79) 97 03/01/19 20:30 95 24 118/50 (72) 97 03/01/19 20:00 91 8/9/19 20:00 98.9 93 26 112/42 (65) 98 03/01/19 20:00 Room Air Room Air 03/01/19 20:00 112/54 03/01/19 19:30 93 25 123/48 (73) 97 03/01/19 19:04 100 20 99 Room Air 03/01/19 19:00 110/62 03/01/19 19:00 98 27 109/51 (70) 97 03/01/19 18:53 95 22 98 Room Air 03/01/19 18:30 95 24 115/55 (75) 97 03/01/19 18:15 99 26 106/50 (68) 97 03/01/19 18:00 107 22 135/55 (81) 98 03/01/19 18:00 106/50 03/01/19 17:30 98 31 118/51 (73) 97 03/01/19 17:15 96 27 120/50 (73) 97 03/01/19 17:00 96 29 111/47 (68) 97 03/01/19 17:00 120/50 03/01/19 16:45 96 27 112/55 (74) 97 03/01/19 16:30 99.1 95 26 115/55 (75) 96 03/01/19 16:15 98 27 115/48 (70) 96 03/01/19 16:00 Room Air Room Air 03/01/19 16:00 99 26 105/52 (69) 97 03/01/19 16:00 115/48 03/01/19 15:42 105 03/01/19 15:30 100 26 123/51 (75) 97 03/01/19 15:19 Room Air 03/01/19 15:19 Room Air 03/01/19 15:00 126/51 03/01/19 15:00 101 33 114/45 (68) 94 03/01/19 14:30 102 30 115/45 (68) 97 03/01/19 14:00 99 27 111/44 (66) 98 03/01/19 14:00 119/44 03/01/19 14:00 100 30 109/46 (67) 97 03/01/19 13:30 99 27 111/44 (66) 98 03/01/19 13:00 98.1 102 36 102/47 (65) 97 03/01/19 13:00 111/44 03/01/19 12:30 98 25 106/45 (65) 96 03/01/19 12:00 100 26 93/31 (51) 97 03/01/19 12:00 106/45 03/01/19 12:00 Room Air Room Air 03/01/19 11:46 100 03/01/19 11:30 110 29 122/60 (80) 97 03/01/19 11:14 Room Air 03/01/19 11:14 Room Air 03/01/19 11:00 122/60 03/01/19 11:00 101 27 100/37 (58) 97 03/01/19 10:30 99 25 105/38 (60) 98 03/01/19 10:00 99 25 90/32 (51) 97 03/01/19 10:00 105/38 03/01/19 09:30 98 24 94/31 (52) 97 Labs: Labs Test 02/28/19 04:10 02/28/19 05:20 02/28/19 10:33 02/28/19 12:12 White Blood Count 16.0 K/UL (4.8-10.8) Red Blood Count 2.67 M/UL (4.20-5.40) Hemoglobin 8.5 G/DL (12.0-16.0) Hematocrit 27.5 % (37.0-47.0) Mean Corpuscular Volume 103 FL (80-99) Mean Corpuscular Hemoglobin 31.7 PG (27.0-31.0) Mean Corpuscular Hemoglobin Concent 30.9 G/DL (32.0-36.0) Red Cell Distribution Width 15.9 % (11.6-14.8) Platelet Count 122 K/UL (150-450) Mean Platelet Volume 11.1 FL (6.5-10.1) Neutrophils (%) (Auto) % (45.0-75.0) Lymphocytes (%) (Auto) % (20.0-45.0) Monocytes (%) (Auto) % (1.0-10.0) Eosinophils (%) (Auto) % (0.0-3.0) Basophils (%) (Auto) % (0.0-2.0) Differential Total Cells Counted 100 Neutrophils % (Manual) 86 % (45-75) Lymphocytes % (Manual) 12 % (20-45) Monocytes % (Manual) 2 % (1-10) Eosinophils % (Manual) 0 % (0-3) Basophils % (Manual) 0 % (0-2) Band Neutrophils 0 % (0-8) Nucleated Red Blood Cells 1 /100 WBC Platelet Estimate Decreased Platelet Morphology Normal Hypochromasia 2+ Anisocytosis 1+ Macrocytosis 1+ Sodium Level 150 MMOL/L (136-145) Potassium Level 3.1 MMOL/L (3.5-5.1) Chloride Level 119 MMOL/L (98-107) Carbon Dioxide Level 19 MMOL/L (21-32) Anion Gap 12 mmol/L (5-15) Blood Urea Nitrogen 34 mg/dL (7-18) Creatinine 1.7 MG/DL (0.55-1.30) Estimat Glomerular Filtration Rate mL/min (>60) Glucose Level 164 MG/DL (74-106) Lactic Acid Level 2.40 mmol/L (0.4-2.0) 2.60 mmol/L (0.66-2.22) 1.90 mmol/L (0.4-2.0) Calcium Level 8.4 MG/DL (8.5-10.1) Arterial Blood pH 7.362 (7.350-7.450) Arterial Blood Partial Pressure CO2 28.7 mmHg (35.0-45.0) Arterial Blood Partial Pressure O2 109.6 mmHg (75.0-100.0) Arterial Blood HCO3 15.9 mmol/L (22.0-26.0) Arterial Blood Oxygen Saturation 97.8 % (95-100) Arterial Blood Base Excess -8.5 (-2-2) Cam Test Positive Troponin I 0.016 ng/mL (0.000-0.056) Random Vancomycin Level 26.0 ug/mL Test 03/01/19 04:00 03/02/19 05:20 White Blood Count 12.9 K/UL (4.8-10.8) 8.7 K/UL (4.8-10.8) Red Blood Count 2.56 M/UL (4.20-5.40) 2.48 M/UL (4.20-5.40) Hemoglobin 8.2 G/DL (12.0-16.0) 8.0 G/DL (12.0-16.0) Hematocrit 26.5 % (37.0-47.0) 25.6 % (37.0-47.0) Mean Corpuscular Volume 104 FL (80-99) 103 FL (80-99) Mean Corpuscular Hemoglobin 32.2 PG (27.0-31.0) 32.2 PG (27.0-31.0) Mean Corpuscular Hemoglobin Concent 31.1 G/DL (32.0-36.0) 31.2 G/DL (32.0-36.0) Red Cell Distribution Width 15.3 % (11.6-14.8) 15.5 % (11.6-14.8) Platelet Count 116 K/UL (150-450) 113 K/UL (150-450) Mean Platelet Volume 11.3 FL (6.5-10.1) 10.1 FL (6.5-10.1) Neutrophils (%) (Auto) 76.6 % (45.0-75.0) 67.8 % (45.0-75.0) Lymphocytes (%) (Auto) 16.9 % (20.0-45.0) 24.3 % (20.0-45.0) Monocytes (%) (Auto) 5.5 % (1.0-10.0) 6.8 % (1.0-10.0) Eosinophils (%) (Auto) 0.6 % (0.0-3.0) 0.4 % (0.0-3.0) Basophils (%) (Auto) 0.5 % (0.0-2.0) 0.7 % (0.0-2.0) Sodium Level 152 MMOL/L (136-145) 150 MMOL/L (136-145) Potassium Level 2.9 MMOL/L (3.5-5.1) 3.2 MMOL/L (3.5-5.1) Chloride Level 120 MMOL/L (98-107) 117 MMOL/L (98-107) Carbon Dioxide Level 20 MMOL/L (21-32) 22 MMOL/L (21-32) Anion Gap 12 mmol/L (5-15) 11 mmol/L (5-15) Blood Urea Nitrogen 29 mg/dL (7-18) 26 mg/dL (7-18) Creatinine 1.6 MG/DL (0.55-1.30) 1.5 MG/DL (0.55-1.30) Estimat Glomerular Filtration Rate mL/min (>60) mL/min (>60) Glucose Level 166 MG/DL (74-106) 177 MG/DL (74-106) Calcium Level 7.8 MG/DL (8.5-10.1) 8.1 MG/DL (8.5-10.1) Random Vancomycin Level 20.2 ug/mL Objective: WDWN on NC clear breath sounds bilaterally without rhonchi or wheeze [id number] without MRG NABS nontender no HSM no CCE awake Accucheck: 215 Agustin Nelson MD Mar 02, 2019 09:17
[2019-03-02] MEDS: Lactulose 20gm/30ml UDC ORAL SCH (09:20)
[2019-03-02] MEDS: Multivitamins W/Minerals 15 ML UDC GT SCH (09:20)
[2019-03-02] MEDS: Ascorbic Acid 500mg tab ORAL SCH (09:20)
[2019-03-02] MEDS: Pantoprazole Inj IVP SCH (09:20)
[2019-03-02] MEDS: Memantine 10mg tab ORAL SCH (09:20)
[2019-03-02] MEDS: Docusate 100mg tablet ORAL SCH (09:20)
[2019-03-02] MEDS: Bethanechol 10mg Tab ORAL SCH (09:28)
--- NOTE | 2019-03-02 09:30 | NUR ---
NURSE NOTES: DR. García called,updated on pt's lab results,,K level 3.2,orders for K replacement given,KCL 20 meq IV .
[2019-03-02] MEDS ORDERED: D5NS 1000ml IV ONE (10:41)
[2019-03-02] MEDS ORDERED: Tubing IV Secondary IV ONE (10:41)
--- NOTE | 2019-03-02 11:20 | Surgery Progress Note ---
Surgery Progress Note Subjective Additional Comments labs improved exam stable Objective Last 24 Hour Vital Signs Date Time Temp Pulse Resp B/P (MAP) Pulse Ox O2 Delivery O2 Flow Rate FiO2 03/02/19 10:55 104 20 100 Room Air 21 03/02/19 10:52 103 20 97 Room Air 21 03/02/19 10:51 101 20 97 Room Air 21 03/02/19 10:00 102 24 100/50 (67) 97 03/02/19 09:00 97 22 112/48 (69) 97 03/02/19 08:00 Room Air Room Air 03/02/19 08:00 98.4 99 18 116/56 (76) 97 03/02/19 08:00 111 03/02/19 07:30 103 28 108/49 (68) 97 03/02/19 07:15 102 28 108/52 (70) 97 03/02/19 07:11 101 20 100 Room Air 21 03/02/19 07:08 103 18 98 Room Air 21 03/02/19 07:00 93 23 104/39 (60) 96 03/02/19 06:30 100 22 96 03/02/19 06:15 103 21 101/50 (67) 97 03/02/19 06:00 103 27 103/53 (70) 97 03/02/19 05:45 93 21 98/44 (62) 97 03/02/19 05:30 98 22 102/52 (69) 96 03/02/19 05:15 93 21 114/46 (68) 98 03/02/19 05:00 114/46 03/02/19 05:00 102 20 107/47 (67) 98 03/02/19 04:45 105 28 89/56 (67) 98 03/02/19 04:30 104 26 104/47 (66) 98 03/02/19 04:00 106 27 102/53 (69) 97 03/02/19 04:00 Room Air Room Air 03/02/19 04:00 110/48 03/02/19 04:00 95 03/02/19 03:30 104 27 115/58 (77) 97 03/02/19 03:28 102 20 99 Room Air 03/02/19 03:18 98 20 98 Room Air 03/02/19 03:00 96 26 104/62 (76) 97 03/02/19 03:00 115/58 03/02/19 02:30 97 23 121/48 (72) 98 03/02/19 02:00 121/48 03/02/19 01:59 96 24 105/45 (65) 96 03/02/19 01:30 96 24 111/45 (67) 96 03/02/19 01:00 105/49 03/02/19 01:00 99 22 111/50 (70) 97 03/02/19 00:30 102 24 93/43 (60) 96 03/02/19 00:00 101 03/02/19 00:00 Room Air Room Air 03/02/19 00:00 108/50 03/02/19 00:00 101 23 102/42 (62) 97 03/01/19 23:30 103 28 110/43 (65) 97 03/01/19 23:19 91 20 99 Room Air 03/01/19 23:03 92 20 97 Room Air 03/01/19 23:00 94 24 121/42 (68) 97 03/01/19 23:00 121/42 03/01/19 22:30 99 33 108/45 (66) 97 03/01/19 22:00 114/46 03/01/19 22:00 100 24 107/46 (66) 96 03/01/19 21:30 95 23 109/51 (70) 97 03/01/19 21:15 99 28 117/50 (72) 97 03/01/19 21:00 117/50 03/01/19 21:00 98 29 118/63 (81) 97 03/01/19 20:45 94 22 125/56 (79) 97 03/01/19 20:30 95 24 118/50 (72) 97 03/01/19 20:00 91 03/01/19 20:00 98.9 93 26 112/42 (65) 98 03/01/19 20:00 Room Air Room Air 03/01/19 20:00 112/54 03/01/19 19:30 93 25 123/48 (73) 97 03/01/19 19:04 100 20 99 Room Air 03/01/19 19:00 110/62 03/01/19 19:00 98 27 109/51 (70) 97 03/01/19 18:53 95 22 98 Room Air 03/01/19 18:30 95 24 115/55 (75) 97 03/01/19 18:15 99 26 106/50 (68) 97 03/01/19 18:00 107 22 135/55 (81) 98 03/01/19 18:00 106/50 03/01/19 17:30 98 31 118/51 (73) 97 03/01/19 17:15 96 27 120/50 (73) 97 03/01/19 17:00 96 29 111/47 (68) 97 03/01/19 17:00 120/50 03/01/19 16:45 96 27 112/55 (74) 97 03/01/19 16:30 99.1 95 26 115/55 (75) 96 03/01/19 16:15 98 27 115/48 (70) 96 03/01/19 16:00 Room Air Room Air 03/01/19 16:00 99 26 105/52 (69) 97 03/01/19 16:00 115/48 03/01/19 15:42 105 03/01/19 15:30 100 26 123/51 (75) 97 03/01/19 15:19 Room Air 03/01/19 15:19 Room Air 03/01/19 15:00 126/51 03/01/19 15:00 101 33 114/45 (68) 94 03/01/19 14:30 102 30 115/45 (68) 97 03/01/19 14:00 99 27 111/44 (66) 98 03/01/19 14:00 119/44 03/01/19 14:00 100 30 109/46 (67) 97 03/01/19 13:30 99 27 111/44 (66) 98 03/01/19 13:00 98.1 102 36 102/47 (65) 97 03/01/19 13:00 111/44 03/01/19 12:30 98 25 106/45 (65) 96 03/01/19 12:00 100 26 93/31 (51) 97 03/01/19 12:00 106/45 03/01/19 12:00 Room Air Room Air 03/01/19 11:46 100 03/01/19 11:30 110 29 122/60 (80) 97 I&O Intake and Output 03/01/19 03/02/19 18:59 06:59 Intake Total 2215.0 ml 1945.0 ml Output Total 1770 ml 1650 ml Balance 445.0 ml 295.0 ml Free Water 0 ml IV Total 1595.0 ml 1335.0 ml Tube Feeding 520 ml 610 ml Other 100 ml Output Urine Total 1770 ml 1650 ml # Bowel Movements 4 1 Dressing: saturated Wound: other Drains: other Cardiovascular: RSR Respiratory: clear Abdomen: non-tender, present bowel sounds, non-distended Extremities: no cyanosis Laboratory Tests Test 03/02/19 05:20 White Blood Count 8.7 K/UL (4.8-10.8) Red Blood Count 2.48 M/UL (4.20-5.40) L Hemoglobin 8.0 G/DL (12.0-16.0) L Hematocrit 25.6 % (37.0-47.0) L Mean Corpuscular Volume 103 FL (80-99) H Mean Corpuscular Hemoglobin 32.2 PG (27.0-31.0) H Mean Corpuscular Hemoglobin Concent 31.2 G/DL (32.0-36.0) L Red Cell Distribution Width 15.5 % (11.6-14.8) H Platelet Count 113 K/UL (150-450) L Mean Platelet Volume 10.1 FL (6.5-10.1) Neutrophils (%) (Auto) 67.8 % (45.0-75.0) Lymphocytes (%) (Auto) 24.3 % (20.0-45.0) Monocytes (%) (Auto) 6.8 % (1.0-10.0) Eosinophils (%) (Auto) 0.4 % (0.0-3.0) Basophils (%) (Auto) 0.7 % (0.0-2.0) Sodium Level 150 MMOL/L (136-145) H Potassium Level 3.2 MMOL/L (3.5-5.1) L Chloride Level 117 MMOL/L (98-107) H Carbon Dioxide Level 22 MMOL/L (21-32) Anion Gap 11 mmol/L (5-15) Blood Urea Nitrogen 26 mg/dL (7-18) H Creatinine 1.5 MG/DL (0.55-1.30) H Estimat Glomerular Filtration Rate mL/min (>60) Glucose Level 177 MG/DL (74-106) H Calcium Level 8.1 MG/DL (8.5-10.1) L Plan Problems: (1) Fecal impaction Assessment & Plan: patient with fecal impaction KUB noted unable to improve with enema and g tube Rx recommend manual disimpaction with assistance of nursing staff patient was turned and manual disimpaction performed at bedside. significant fecal retention in rectum past what my finger could reach. stool soft and not hard. rectum cleared of stool cont with oral rx and enema will perform manual prn will follow with recs thank you (2) Sepsis Assessment & Plan: leukocytosis lactic acidosis micro noted on vent support IV Abx as per ID will follow trend labs thank you Helio Salgado Mar 02, 2019 11:20
--- NOTE | 2019-03-02 11:24 | Infectious Diseases Prog Note ---
Assessment/Plan Assessment/Plan Assessment: Septic Shock, SP- likely 2ry to PNA -03/01 CXR: * Interval removal of endotracheal tube. Worsening of aeration with increased haziness of the pulmonary vascularity suggesting development of mild interstitial edema/fluid overload. Bibasilar airspace opacities also increased which may be related to worsening subsegmental atelectasis or worsening pneumonia. Correlate clinically. Small left pleural effusion is suggested. -KUB: Fecal impaction distal sigmoid/rectum. -02/25 CXR: Development of lower lobe infiltrates. Correlate clinically for pneumonia -CXR:Endotracheal tube 2.8 cm above the ludwig in good position. Mild cardiomegaly. Mild right upper lobe interstitial prominence. -CT head: No acute intracranial process. Involutional changes with small vessel disease. Moderate ethmoid sinus mucosal thickening and fluid. Small fluid level in the right sphenoid sinus. -u/a wbc 5-10, nit neg, leuk +1; ucx Neg -02/23 Bcx Neg; 02/25 Bcx NTD -sp cx ESBL E.coli, MRSA, P.stuarti (S Ceftriaxone, Ertapenem, Zosyn) -2d Echo: no vegetations -legionella ag urine neg Acute respiratory failure s/p intubation 02/23- s/p extubated 03/01 Fever; SP Leukocytosis; SP Lactic acidosis; SP NAOMY on CKD Hypernatremia hx of MRSA bacteremia 11/2018 -TTE no vegetation hx of ESBL E.coli UTI 11/2018 HTN Dm2 CHF COPD dysphagia s/p GT HLD OA advanced Dementia non verbal SNF resident Plan: -Continue empiric Meropenem #01/30- for ESBL PNA -Cont IV Vancomycin #03/02- for MRSA PNA -8/8 SP Doxycycline #6 -8/7 SP Amikacin #4 -8/6 SP IV Vancomycin #4 -/ SP Zosyn #2 -02/23 SP Cefepime x1, Flagyl x1 -f/u cx -Monitor CBC/BMP, temperatures -Cdiff if diarrhea Thank you for this consultation. Will continue to follow along with you. Discussed with RN. Subjective Allergies: Coded Allergies: SULFA (SULFONAMIDE ANTIBIOTICS) (Unverified Allergy, Unknown, 09/30/18) COPIED FROM UNCODED Uncoded Allergies: SULFA (Allergy, Unknown, 11/20/18) Subjective afebrile >72hrs leukocytosis resolved Bcx NTD now off levophed at RA Objective Vital Signs Last 24 Hour Vital Signs Date Time Temp Pulse Resp B/P (MAP) Pulse Ox O2 Delivery O2 Flow Rate FiO2 03/02/19 10:55 104 20 100 Room Air 21 03/02/19 10:52 103 20 97 Room Air 21 03/02/19 10:51 101 20 97 Room Air 21 03/02/19 10:00 102 24 100/50 (67) 97 03/02/19 09:00 97 22 112/48 (69) 97 03/02/19 08:00 Room Air Room Air 03/02/19 08:00 98.4 99 18 116/56 (76) 97 03/02/19 08:00 111 03/02/19 07:30 103 28 108/49 (68) 97 03/02/19 07:15 102 28 108/52 (70) 97 03/02/19 07:11 101 20 100 Room Air 21 03/02/19 07:08 103 18 98 Room Air 21 03/02/19 07:00 93 23 104/39 (60) 96 03/02/19 06:30 100 22 96 03/02/19 06:15 103 21 101/50 (67) 97 03/02/19 06:00 103 27 103/53 (70) 97 03/02/19 05:45 93 21 98/44 (62) 97 03/02/19 05:30 98 22 102/52 (69) 96 03/02/19 05:15 93 21 114/46 (68) 98 03/02/19 05:00 114/46 03/02/19 05:00 102 20 107/47 (67) 98 03/02/19 04:45 105 28 89/56 (67) 98 03/02/19 04:30 104 26 104/47 (66) 98 03/02/19 04:00 106 27 102/53 (69) 97 03/02/19 04:00 Room Air Room Air 03/02/19 04:00 110/48 03/02/19 04:00 95 03/02/19 03:30 104 27 115/58 (77) 97 03/02/19 03:28 102 20 99 Room Air 03/02/19 03:18 98 20 98 Room Air 03/02/19 03:00 96 26 104/62 (76) 97 03/02/19 03:00 115/58 03/02/19 02:30 97 23 121/48 (72) 98 03/02/19 02:00 121/48 03/02/19 01:59 96 24 105/45 (65) 96 03/02/19 01:30 96 24 111/45 (67) 96 03/02/19 01:00 105/49 03/02/19 01:00 99 22 111/50 (70) 97 03/02/19 00:30 102 24 93/43 (60) 96 03/02/19 00:00 101 03/02/19 00:00 Room Air Room Air 03/02/19 00:00 108/50 03/02/19 00:00 101 23 102/42 (62) 97 03/01/19 23:30 103 28 110/43 (65) 97 03/01/19 23:19 91 20 99 Room Air 03/01/19 23:03 92 20 97 Room Air 03/01/19 23:00 94 24 121/42 (68) 97 03/01/19 23:00 121/42 03/01/19 22:30 99 33 108/45 (66) 97 03/01/19 22:00 114/46 03/01/19 22:00 100 24 107/46 (66) 96 03/01/19 21:30 95 23 109/51 (70) 97 03/01/19 21:15 99 28 117/50 (72) 97 03/01/19 21:00 117/50 03/01/19 21:00 98 29 118/63 (81) 97 03/01/19 20:45 94 22 125/56 (79) 97 03/01/19 20:30 95 24 118/50 (72) 97 03/01/19 20:00 91 03/01/19 20:00 98.9 93 26 112/42 (65) 98 03/01/19 20:00 Room Air Room Air 03/01/19 20:00 112/54 03/01/19 19:30 93 25 123/48 (73) 97 03/01/19 19:04 100 20 99 Room Air 03/01/19 19:00 110/62 03/01/19 19:00 98 27 109/51 (70) 97 03/01/19 18:53 95 22 98 Room Air 03/01/19 18:30 95 24 115/55 (75) 97 03/01/19 18:15 99 26 106/50 (68) 97 03/01/19 18:00 107 22 135/55 (81) 98 03/01/19 18:00 106/50 03/01/19 17:30 98 31 118/51 (73) 97 03/01/19 17:15 96 27 120/50 (73) 97 03/01/19 17:00 96 29 111/47 (68) 97 03/01/19 17:00 120/50 03/01/19 16:45 96 27 112/55 (74) 97 03/01/19 16:30 99.1 95 26 115/55 (75) 96 03/01/19 16:15 98 27 115/48 (70) 96 03/01/19 16:00 Room Air Room Air 03/01/19 16:00 99 26 105/52 (69) 97 03/01/19 16:00 115/48 03/01/19 15:42 105 03/01/19 15:30 100 26 123/51 (75) 97 03/01/19 15:19 Room Air 03/01/19 15:19 Room Air 03/01/19 15:00 126/51 03/01/19 15:00 101 33 114/45 (68) 94 03/01/19 14:30 102 30 115/45 (68) 97 03/01/19 14:00 99 27 111/44 (66) 98 03/01/19 14:00 119/44 03/01/19 14:00 100 30 109/46 (67) 97 03/01/19 13:30 99 27 111/44 (66) 98 03/01/19 13:00 98.1 102 36 102/47 (65) 97 03/01/19 13:00 111/44 03/01/19 12:30 98 25 106/45 (65) 96 03/01/19 12:00 100 26 93/31 (51) 97 03/01/19 12:00 106/45 03/01/19 12:00 Room Air Room Air 03/01/19 11:46 100 03/01/19 11:30 110 29 122/60 (80) 97 Height (Feet): 5 Height (Inches): 8.00 Weight (Pounds): 176 Objective General Appearance: lethargic, moderate distress Lines, tubes and drains: peripheral, central line, gtube HEENT: normocephalic, atraumatic, anicteric, mucous membranes moist, PERRL, EOMI, pharynx normal, supple, no JVD Neck: non-tender, normal alignment, supple, normal inspection Respiratory/Chest: accessory muscle use, crackles/rales, rhonchi - bilaterally , rhonchi - left Cardiovascular/Chest: normal peripheral pulses, regular rhythm, tachycardia Abdomen: normal bowel sounds, non tender, soft, no organomegaly, no mass Extremities: normal range of motion, non-tender, normal inspection, no calf tenderness, normal capillary refill, non-pitting Skin Exam: normal pigmentation, warm/dry, cyanotic Neurologic: sensory deficit, unresponsiveness Laboratory Tests Test 03/02/19 05:20 White Blood Count 8.7 K/UL (4.8-10.8) Red Blood Count 2.48 M/UL (4.20-5.40) L Hemoglobin 8.0 G/DL (12.0-16.0) L Hematocrit 25.6 % (37.0-47.0) L Mean Corpuscular Volume 103 FL (80-99) H Mean Corpuscular Hemoglobin 32.2 PG (27.0-31.0) H Mean Corpuscular Hemoglobin Concent 31.2 G/DL (32.0-36.0) L Red Cell Distribution Width 15.5 % (11.6-14.8) H Platelet Count 113 K/UL (150-450) L Mean Platelet Volume 10.1 FL (6.5-10.1) Neutrophils (%) (Auto) 67.8 % (45.0-75.0) Lymphocytes (%) (Auto) 24.3 % (20.0-45.0) Monocytes (%) (Auto) 6.8 % (1.0-10.0) Eosinophils (%) (Auto) 0.4 % (0.0-3.0) Basophils (%) (Auto) 0.7 % (0.0-2.0) Sodium Level 150 MMOL/L (136-145) H Potassium Level 3.2 MMOL/L (3.5-5.1) L Chloride Level 117 MMOL/L (98-107) H Carbon Dioxide Level 22 MMOL/L (21-32) Anion Gap 11 mmol/L (5-15) Blood Urea Nitrogen 26 mg/dL (7-18) H Creatinine 1.5 MG/DL (0.55-1.30) H Estimat Glomerular Filtration Rate mL/min (>60) Glucose Level 177 MG/DL (74-106) H Calcium Level 8.1 MG/DL (8.5-10.1) L Current Medications Medications (Trade) Dose Ordered Sig/Chandu Route PRN Reason Start Time Stop Time Status Last Admin Dose Admin Acetaminophen (Tylenol) 650 mg Q4H PRN GT Temp > 100.5 02/23/19 17:00 03/25/19 16:59 02/25/19 17:13 Albuterol/ Ipratropium (Albuterol/ Ipratropium) 3 ml Q4HRT HHN 02/28/19 15:00 03/14/19 16:00 03/02/19 10:51 Ascorbic Acid (Vitamin C) 500 mg DAILY ORAL 02/24/19 09:00 03/26/19 08:59 03/02/19 09:20 Atorvastatin Calcium (Lipitor) 10 mg BEDTIME ORAL 02/23/19 21:00 03/25/19 20:59 03/01/19 20:59 Bethanechol Chloride (Urecholine) 5 mg THREE TIMES A DAY ORAL 02/23/19 18:00 03/25/19 17:59 03/02/19 09:28 Chlorhexidine Gluconate (Sue-Hex 2%) 1 applic DAILY@2000 TOPIC 02/23/19 20:00 03/25/19 19:59 03/01/19 20:58 Dextrose (Dextrose 50%) 25 ml Q30M PRN IV Hypoglycemia 02/23/19 11:45 03/25/19 11:44 Dextrose (Dextrose 50%) 50 ml Q30M PRN IV Hypoglycemia 02/23/19 11:45 03/25/19 11:44 Dextrose/ Electrolytes 1,000 ml @ 100 mls/hr Q10H IV 03/01/19 13:30 03/31/19 13:29 03/02/19 09:28 Docusate Sodium (Colace) 100 mg BID ORAL 02/27/19 09:00 03/29/19 08:59 03/02/19 09:20 Insulin Aspart (NovoLOG) Q6HR SUBQ 02/26/19 18:00 03/25/19 15:29 03/02/19 06:11 Lactulose (Cephulac) 20 gm DAILY ORAL 03/01/19 09:00 03/29/19 08:59 03/02/19 09:20 Memantine (Namenda) 10 mg Q12HR ORAL 02/23/19 21:00 03/25/19 20:59 03/02/19 09:20 Meropenem 1 gm/ Sodium Chloride 55 ml @ 110 mls/hr Q12HR@0600,1800 IVPB 02/24/19 18:00 03/05/19 23:00 03/02/19 06:09 Metoclopramide HCl (Reglan) 5 mg Q6H PRN IVP Nausea & Vomiting 03/01/19 08:45 03/31/19 08:44 Mineral Oil (Mineral Oil) 30 ml DAILYPRN PRN ORAL Constipation 02/25/19 16:42 03/27/19 16:41 02/25/19 17:13 Multivitamins (Multivitamins W/ Minerals 15ml Liquid) 15 ml DAILY GT 02/24/19 09:00 03/26/19 08:59 03/02/19 09:20 Norepinephrine Bitartrate 8 mg/ Dextrose 500 ml @ 0 mls/hr Q24H IV 02/24/19 23:00 03/26/19 22:59 03/01/19 08:52 Pantoprazole (Protonix) 40 mg DAILY IVP 02/24/19 09:00 03/26/19 08:59 03/02/19 09:20 Polyethylene Glycol (Miralax) 17 gm DAILYPRN PRN ORAL Constipation 02/23/19 12:15 03/25/19 12:14 02/26/19 08:04 Potassium Chloride 100 ml @ 50 mls/hr ONCE ONCE IVPB 03/02/19 09:45 03/02/19 11:44 03/02/19 10:19 Vancomycin HCl (Vanco rx to dose) 1 ea DAILY PRN MISC Per rx protocol 02/27/19 19:30 03/29/19 19:29 Frances Chavarria M.D. Mar 02, 2019 11:24
--- NOTE | 2019-03-02 11:45 | NUR ---
TRANSFER TO FLOOR: Patient transferred to [facility], per bed [id number],awake,alert confused in no resp distress stable. Report given to Ibeth Darden RN. No belongings noted,Novolog Insulin pen given to receiving RN.
[2019-03-02] MEDS ORDERED: Acetaminophen 650mg/20.3ml GT PRN (11:58)
[2019-03-02] MEDS ORDERED: Metoclopramide 10mg/2ml Inj IVP PRN (11:59)
[2019-03-02] MEDS ORDERED: Miralax 17gm pkt GT PRN (11:59)
[2019-03-02] MEDS ORDERED: Mineral Oil 30ml ud GT PRN (11:59)
[2019-03-02] MEDS ORDERED: NovoLOG Insulin Flexpen SUBQ SCH (12:00)
--- NOTE | 2019-03-02 12:00 | NUR ---
NURSE NOTES: received patient report from paul kingsley rn. patient came in from ICU via hospital bed. patient is noted to combative. noted Gtube on the mid abdomen. ST on the monitor. TLC on the Right side of the neck, running d5w with 20meqs kcl @ 100 ml/ hr. noted Bilateral Heels unblanchable redness/boggy heels. pictures taken and uploaded. wound care protocol will follow. will continue to monitor.
[2019-03-02] MEDS: Bethanechol 10mg Tab GT SCH ×2 (13:03→17:15)
--- NOTE | 2019-03-02 13:28 | Nephrology Progress Note ---
Assessment/Plan Status: stable Assessment/Plan: A/P 1) Septic Shock- Elevated WBC improving everyday - Abx mgmt per ID. 2/ PNA - off levophed and transferred to SDU 2) Resp FL- Extubated. Per Dr East 3) Hypernatremia- improved Na 150 - D5W 4) NAOMY- Cr and BUN much improved. Resolving ATN 5) E- ABN- replace K+/Mg Phos as needed 6) DVT prophylaxis- with SCDs Subjective Date patient seen: Mar 02, 2019 Time patient seen: 13:27 ROS Limited/Unobtainable: Yes Allergies: Coded Allergies: SULFA (SULFONAMIDE ANTIBIOTICS) (Unverified Allergy, Unknown, 09/30/18) COPIED FROM UNCODED Uncoded Allergies: SULFA (Allergy, Unknown, 11/20/18) Subjective Patient now extubated, awake, more alert and agitated Objective Last 24 Hour Vital Signs Date Time Temp Pulse Resp B/P (MAP) Pulse Ox O2 Delivery O2 Flow Rate FiO2 03/02/19 12:00 98.1 105 26 107/56 (73) 96 03/02/19 11:38 105 03/02/19 10:55 104 20 100 Room Air 21 03/02/19 10:52 103 20 97 Room Air 21 03/02/19 10:51 101 20 97 Room Air 21 03/02/19 10:00 102 24 100/50 (67) 97 03/02/19 09:00 97 22 112/48 (69) 97 03/02/19 08:00 Room Air Room Air 03/02/19 08:00 98.4 99 18 116/56 (76) 97 03/02/19 08:00 111 03/02/19 07:30 103 28 108/49 (68) 97 03/02/19 07:15 102 28 108/52 (70) 97 03/02/19 07:11 101 20 100 Room Air 21 03/02/19 07:08 103 18 98 Room Air 21 03/02/19 07:00 93 23 104/39 (60) 96 03/02/19 06:30 100 22 96 03/02/19 06:15 103 21 101/50 (67) 97 03/02/19 06:00 103 27 103/53 (70) 97 03/02/19 05:45 93 21 98/44 (62) 97 03/02/19 05:30 98 22 102/52 (69) 96 03/02/19 05:15 93 21 114/46 (68) 98 03/02/19 05:00 114/46 03/02/19 05:00 102 20 107/47 (67) 98 03/02/19 04:45 105 28 89/56 (67) 98 03/02/19 04:30 104 26 104/47 (66) 98 03/02/19 04:00 106 27 102/53 (69) 97 03/02/19 04:00 Room Air Room Air 03/02/19 04:00 110/48 03/02/19 04:00 95 03/02/19 03:30 104 27 115/58 (77) 97 03/02/19 03:28 102 20 99 Room Air 03/02/19 03:18 98 20 98 Room Air 03/02/19 03:00 96 26 104/62 (76) 97 03/02/19 03:00 115/58 03/02/19 02:30 97 23 121/48 (72) 98 03/02/19 02:00 121/48 03/02/19 01:59 96 24 105/45 (65) 96 03/02/19 01:30 96 24 111/45 (67) 96 03/02/19 01:00 105/49 03/02/19 01:00 99 22 111/50 (70) 97 03/02/19 00:30 102 24 93/43 (60) 96 03/02/19 00:00 101 03/02/19 00:00 Room Air Room Air 03/02/19 00:00 108/50 03/02/19 00:00 101 23 102/42 (62) 97 03/01/19 23:30 103 28 110/43 (65) 97 03/01/19 23:19 91 20 99 Room Air 03/01/19 23:03 92 20 97 Room Air 03/01/19 23:00 94 24 121/42 (68) 97 03/01/19 23:00 121/42 03/01/19 22:30 99 33 108/45 (66) 97 03/01/19 22:00 114/46 03/01/19 22:00 100 24 107/46 (66) 96 03/01/19 21:30 95 23 109/51 (70) 97 03/01/19 21:15 99 28 117/50 (72) 97 03/01/19 21:00 117/50 03/01/19 21:00 98 29 118/63 (81) 97 03/01/19 20:45 94 22 125/56 (79) 97 03/01/19 20:30 95 24 118/50 (72) 97 03/01/19 20:00 91 03/01/19 20:00 98.9 93 26 112/42 (65) 98 03/01/19 20:00 Room Air Room Air 03/01/19 20:00 112/54 03/01/19 19:30 93 25 123/48 (73) 97 03/01/19 19:04 100 20 99 Room Air 03/01/19 19:00 110/62 03/01/19 19:00 98 27 109/51 (70) 97 03/01/19 18:53 95 22 98 Room Air 03/01/19 18:30 95 24 115/55 (75) 97 03/01/19 18:15 99 26 106/50 (68) 97 03/01/19 18:00 107 22 135/55 (81) 98 03/01/19 18:00 106/50 03/01/19 17:30 98 31 118/51 (73) 97 03/01/19 17:15 96 27 120/50 (73) 97 03/01/19 17:00 96 29 111/47 (68) 97 03/01/19 17:00 120/50 03/01/19 16:45 96 27 112/55 (74) 97 03/01/19 16:30 99.1 95 26 115/55 (75) 96 03/01/19 16:15 98 27 115/48 (70) 96 03/01/19 16:00 Room Air Room Air 03/01/19 16:00 99 26 105/52 (69) 97 03/01/19 16:00 115/48 03/01/19 15:42 105 03/01/19 15:30 100 26 123/51 (75) 97 03/01/19 15:19 Room Air 03/01/19 15:19 Room Air 03/01/19 15:00 126/51 03/01/19 15:00 101 33 114/45 (68) 94 03/01/19 14:30 102 30 115/45 (68) 97 03/01/19 14:00 99 27 111/44 (66) 98 03/01/19 14:00 119/44 03/01/19 14:00 100 30 109/46 (67) 97 03/01/19 13:30 99 27 111/44 (66) 98 Intake and Output 03/01/19 03/02/19 18:59 06:59 Intake Total 2215.0 ml 1945.0 ml Output Total 1770 ml 1650 ml Balance 445.0 ml 295.0 ml Free Water 0 ml IV Total 1595.0 ml 1335.0 ml Tube Feeding 520 ml 610 ml Other 100 ml Output Urine Total 1770 ml 1650 ml # Bowel Movements 4 1 Laboratory Tests 03/02/19 05:20: White Blood Count 8.7, Red Blood Count 2.48L, Hemoglobin 8.0L, Hematocrit 25.6L , Mean Corpuscular Volume 103H, Mean Corpuscular Hemoglobin 32.2H, Mean Corpuscular Hemoglobin Concent 31.2L, Red Cell Distribution Width 15.5H, Platelet Count 113L, Mean Platelet Volume 10.1, Neutrophils (%) (Auto) 67.8, Lymphocytes (%) (Auto) 24.3, Monocytes (%) (Auto) 6.8, Eosinophils (%) (Auto) 0.4, Basophils (%) (Auto) 0.7, Sodium Level 150H, Potassium Level 3.2L, Chloride Level 117H, Carbon Dioxide Level 22, Anion Gap 11, Blood Urea Nitrogen 26H, Creatinine 1.5H, Estimat Glomerular Filtration Rate , Glucose Level 177H, Calcium Level 8.1L Height (Feet): 5 Height (Inches): 8.00 Weight (Pounds): 176 General Appearance: no apparent distress EENT: normal ENT inspection Neck: normal alignment, supple Cardiovascular: normal rate, regular rhythm Respiratory/Chest: rhonchi - bilaterally Abdomen: non tender, soft, no organomegaly Edema: 1+ Pedal (L), 1+ Pedal (R) Jakub García MD Mar 02, 2019 13:28
[2019-03-02] MEDS: Docusate 100mg tablet GT SCH (17:16)
--- NOTE | 2019-03-02 18:30 | NUR ---
NURSE NOTES: 1 pack PRBC done, VS stable. not in acute distress. tolerated very well. will continue to monitor.
--- NOTE | 2019-03-02 19:25 | NUR ---
HAND-OFF: Report given to elvis mccann.
--- NOTE | 2019-03-02 19:26 | NUR ---
NURSE NOTES: Endorsement received from DAKOTA Cristina. Patient opens eyes spontaneously. Withdraws to pain, garbled speech. On room air, saturation 96%. With right IJ TLC. On D5W +KCl 20meq at 100ml/hr. Scales catheter draining to urimeter. With GT patent and intact. On Glucerna 1.2 60ml/hr, no residual. Kept head of bed elevated. Locked and in low position. Call light within reach. Will continue to monitor
[2019-03-02] MEDS: Dyna-Hex 2% Top Sol 2oz TOPIC SCH (19:47)
[2019-03-02] MEDS: Memantine 10mg tab GT SCH (21:14)
[2019-03-02] MEDS ORDERED: Norepinephrine Bitartrate 8 MG in D5W 500ml 492 ML IV SCH (23:00)
[2019-03-03] VITALS: BP 119/42
[2019-03-03] MEDS: NovoLOG Insulin Flexpen SUBQ SCH ×4 (00:12→18:06)
[2019-03-03] MEDS: Albuterol/Ipratropium 3ml neb HHN SCH ×6 (03:17→23:28)
[2019-03-03 04:00] VITALS: BP 106/46
--- NOTE | 2019-03-03 04:34 | NUR ---
NURSE NOTES: Patient passed large amount of soft BM. Bed bath, change of linens done.
[2019-03-03] MEDS: Meropenem 1 GM in NS 55 ML IVPB SCH ×2 (06:03→18:05)
--- NOTE | 2019-03-03 07:00 | NUR ---
NURSE NOTES: Received report from DAKOTA De La Rosa. Observed patient in bed, asleep, verbally arousable. On room air, no respiratory distress noted. Right IJ TLC intact and patent with infusing IV fluids at prescribed rate. GT intact with feeding infusing at prescribed rate, tolerating well, HOB elevated. Scales catheter intact and draining well to gravity. Safety precautions in place. Bed locked, alarmed, and in lowest position, side rails up x3, and call light left within reach.
--- NOTE | 2019-03-03 07:00 | NUR ---
NURSE NOTES: Endorsed to DAKOTA Urbina
[2019-03-03 08:00] VITALS: BP 104/49
[2019-03-03] MEDS: D5W w/KCl 20mEq 1,000 ML IV SCH ×2 (08:01→18:00)
[2019-03-03] MEDS: Bethanechol 10mg Tab GT SCH ×3 (08:47→18:19)
[2019-03-03] MEDS: Memantine 10mg tab GT SCH ×2 (08:47→20:48)
[2019-03-03] MEDS: Ascorbic Acid 500mg tab GT SCH (08:47)
[2019-03-03] MEDS: Multivitamins W/Minerals 15 ML UDC GT SCH (08:47)
[2019-03-03] MEDS: Pantoprazole Inj IVP SCH (08:47)
[2019-03-03] MEDS: Docusate 100mg tablet GT SCH ×2 (08:48→18:19)
[2019-03-03] MEDS ORDERED: Lactulose 20gm/30ml UDC GT SCH (09:00)
--- NOTE | 2019-03-03 11:52 | Pulmonology Progress Note ---
Assessment/Plan Assessment/Plan Pneumonia Severe sepsis Respiratory failure; resolved Dehydration Hypernatremia Ethmoid sinusitis Diabetes Acute renal failure leukocytosis protein calorie malnutrition Plan ok to scotty supportive care as outlined suction as needed oxygen therapy prognosis guarded impression, plan, and exam edited and reviewed in detail care discussed with RN Subjective Interval Events: Looking better Constitutional: Reports: no symptoms HEENT: Repors: no symptoms Respiratory: Reports: no symptoms Cardiovascular: Reports: no symptoms Gastrointestinal/Abdominal: Reports: no symptoms Allergies: Coded Allergies: SULFA (SULFONAMIDE ANTIBIOTICS) (Unverified Allergy, Unknown, 09/30/18) COPIED FROM UNCODED Uncoded Allergies: SULFA (Allergy, Unknown, 11/20/18) Objective Last 24 Hour Vital Signs Date Time Temp Pulse Resp B/P (MAP) Pulse Ox O2 Delivery O2 Flow Rate FiO2 03/03/19 11:13 93 18 98 Room Air 21 03/03/19 11:12 94 20 96 Room Air 21 03/03/19 08:00 Room Air Room Air 03/03/19 08:00 100 03/03/19 08:00 98.4 102 24 104/49 (67) 95 03/03/19 07:17 107 20 100 Room Air 03/03/19 07:11 108 20 96 Room Air 03/03/19 04:00 Room Air Room Air 03/03/19 04:00 99.4 104 24 106/46 (66) 96 03/03/19 03:43 106 03/03/19 03:18 102 20 100 Room Air 03/03/19 03:07 100 20 95 Room Air 03/03/19 00:00 99.5 93 24 119/42 (67) 97 03/03/19 00:00 Room Air Room Air 03/02/19 23:44 102 03/02/19 23:33 Room Air 21 03/02/19 23:33 Room Air 21 03/02/19 20:09 100 03/02/19 20:00 Room Air Room Air 03/02/19 20:00 101 20 97 Room Air 21 03/02/19 20:00 105 20 98 Room Air 21 03/02/19 20:00 99.5 103 23 113/53 (73) 96 03/02/19 16:00 97.3 106 25 143/53 (83) 96 03/02/19 16:00 Room Air Room Air 03/02/19 15:29 103 03/02/19 15:25 101 20 99 Room Air 21 03/02/19 15:20 99 20 97 Room Air 21 03/02/19 12:00 98.1 105 26 107/56 (73) 96 03/02/19 12:00 Room Air Room Air Intake and Output 03/02/19 03/03/19 19:00 07:00 Intake Total 1770 ml 2740 ml Output Total 1600 ml 2000 ml Balance 170 ml 740 ml Free Water 140 ml 800 ml IV Total 910 ml 1100 ml Tube Feeding 720 ml 840 ml Output Urine Total 1600 ml 2000 ml # Bowel Movements 1 1 General Appearance: no acute distress HEENT: normocephalic Respiratory/Chest: chest wall non-tender, lungs clear Cardiovascular: normal peripheral pulses, normal rate Abdomen: normal bowel sounds Laboratory Tests 03/03/19 05:15: Random Vancomycin Level 19.4 Current Medications Medications (Trade) Dose Ordered Sig/Chandu Route PRN Reason Start Time Stop Time Status Last Admin Dose Admin Acetaminophen (Tylenol) 650 mg Q4H PRN GT Temp > 100.5 03/02/19 11:58 04/01/19 11:57 Albuterol/ Ipratropium (Albuterol/ Ipratropium) 3 ml Q4HRT HHN 03/02/19 15:00 03/14/19 16:00 03/03/19 11:12 Ascorbic Acid (Vitamin C) 500 mg DAILY GT 03/03/19 09:00 03/26/19 08:59 03/03/19 08:47 Atorvastatin Calcium (Lipitor) 10 mg BEDTIME GT 03/02/19 21:00 03/25/19 20:59 03/02/19 21:14 Bethanechol Chloride (Urecholine) 5 mg THREE TIMES A DAY GT 03/02/19 13:00 03/25/19 17:59 03/03/19 08:47 Chlorhexidine Gluconate (Sue-Hex 2%) 1 applic DAILY@2000 TOPIC 03/02/19 20:00 03/25/19 19:59 03/02/19 19:47 Dextrose (Dextrose 50%) 25 ml Q30M PRN IV Hypoglycemia 03/02/19 12:15 03/25/19 11:44 Dextrose (Dextrose 50%) 50 ml Q30M PRN IV Hypoglycemia 03/02/19 12:15 03/25/19 11:44 Dextrose/ Electrolytes 1,000 ml @ 100 mls/hr Q10H IV 03/02/19 11:57 04/01/19 11:56 03/03/19 08:01 Docusate Sodium (Colace) 100 mg BID GT 03/02/19 18:00 03/29/19 08:59 03/03/19 08:48 Insulin Aspart (NovoLOG) Q6HR SUBQ 03/02/19 18:00 03/25/19 15:29 03/03/19 11:40 Lactulose (Cephulac) 20 gm DAILY GT 03/03/19 09:00 03/29/19 08:59 03/03/19 08:48 Memantine (Namenda) 10 mg Q12HR GT 03/02/19 21:00 03/25/19 20:59 03/03/19 08:47 Meropenem 1 gm/ Sodium Chloride 55 ml @ 110 mls/hr Q12HR@0600,1800 IVPB 03/02/19 18:00 03/05/19 23:00 03/03/19 06:03 Metoclopramide HCl (Reglan) 5 mg Q6H PRN IVP Nausea & Vomiting 03/02/19 11:59 04/01/19 11:58 Mineral Oil (Mineral Oil) 30 ml DAILYPRN PRN GT Constipation 03/02/19 11:59 04/01/19 11:58 Multivitamins (Multivitamins W/ Minerals 15ml Liquid) 15 ml DAILY GT 03/03/19 09:00 03/26/19 08:59 03/03/19 08:47 Pantoprazole (Protonix) 40 mg DAILY IVP 03/03/19 09:00 03/26/19 08:59 03/03/19 08:47 Polyethylene Glycol (Miralax) 17 gm DAILYPRN PRN GT Constipation 03/02/19 11:59 04/01/19 11:58 Vancomycin HCl (Vanco rx to dose) 1 ea DAILY PRN MISC Per rx protocol 03/03/19 09:00 03/29/19 19:29 Vancomycin HCl 1.25 gm/Sodium Chloride 275 ml @ 183.33 mls/ hr Q48H IVPB 03/03/19 21:00 03/08/19 20:59 Maxim East MD Mar 03, 2019 11:52
[2019-03-03 12:00] VITALS: BP 109/55
--- NOTE | 2019-03-03 12:23 | Surgery Progress Note ---
Surgery Progress Note Subjective Symptoms: improved Objective Last 24 Hour Vital Signs Date Time Temp Pulse Resp B/P (MAP) Pulse Ox O2 Delivery O2 Flow Rate FiO2 03/03/19 12:00 98.1 101 22 109/55 (73) 96 03/03/19 12:00 Room Air Room Air 03/03/19 11:13 93 18 98 Room Air 21 03/03/19 11:12 94 20 96 Room Air 21 03/03/19 08:00 Room Air Room Air 03/03/19 08:00 100 03/03/19 08:00 98.4 102 24 104/49 (67) 95 03/03/19 07:17 107 20 100 Room Air 21 03/03/19 07:11 108 20 96 Room Air 03/03/19 04:00 Room Air Room Air 03/03/19 04:00 99.4 104 24 106/46 (66) 96 03/03/19 03:43 106 03/03/19 03:18 102 20 100 Room Air 21 03/03/19 03:07 100 20 95 Room Air 03/03/19 00:00 99.5 93 24 119/42 (67) 97 03/03/19 00:00 Room Air Room Air 03/02/19 23:44 102 03/02/19 23:33 Room Air 21 03/02/19 23:33 Room Air 21 03/02/19 20:09 100 03/02/19 20:00 Room Air Room Air 03/02/19 20:00 101 20 97 Room Air 21 03/02/19 20:00 105 20 98 Room Air 21 03/02/19 20:00 99.5 103 23 113/53 (73) 96 03/02/19 16:00 97.3 106 25 143/53 (83) 96 03/02/19 16:00 Room Air Room Air 03/02/19 15:29 103 03/02/19 15:25 101 20 99 Room Air 21 03/02/19 15:20 99 20 97 Room Air 21 I&O Intake and Output 03/02/19 03/03/19 19:00 07:00 Intake Total 1770 ml 2740 ml Output Total 1600 ml 2000 ml Balance 170 ml 740 ml Free Water 140 ml 800 ml IV Total 910 ml 1100 ml Tube Feeding 720 ml 840 ml Output Urine Total 1600 ml 2000 ml # Bowel Movements 1 1 Dressing: saturated Wound: clean Cardiovascular: RSR Respiratory: clear Abdomen: soft, distended, non-tender, present bowel sounds Extremities: no cyanosis Laboratory Tests Test 03/03/19 05:15 Random Vancomycin Level 19.4 ug/mL Plan Problems: (1) Fecal impaction Assessment & Plan: patient with fecal impaction KUB noted unable to improve with enema and g tube Rx recommend manual disimpaction with assistance of nursing staff patient was turned and manual disimpaction performed at bedside. significant fecal retention in rectum past what my finger could reach. stool soft and not hard. rectum cleared of stool cont with oral rx and enema will perform manual prn will follow with recs thank you (2) Sepsis Assessment & Plan: leukocytosis lactic acidosis micro noted on vent support IV Abx as per ID will follow trend labs thank you Helio Salgado Mar 03, 2019 12:23
--- NOTE | 2019-03-03 13:08 | Nephrology Progress Note ---
Assessment/Plan Status: stable Assessment/Plan: A/P 1) Septic Shock- - Abx mgmt per ID. 2/2 PNA - resolved and much improved 2) Resp FL- Extubated. Per Dr East 3) Hypernatremia- improved Na 150 - D5W. AM labs pending 4) NAOMY- Cr and BUN much improved. Resolving ATN 5) E- ABN- replace K+/Mg Phos as needed. AM labs pending 6) DVT prophylaxis- with SCDs Subjective Date patient seen: Mar 03, 2019 Time patient seen: 13:06 ROS Limited/Unobtainable: Yes Allergies: Coded Allergies: SULFA (SULFONAMIDE ANTIBIOTICS) (Unverified Allergy, Unknown, 09/30/18) COPIED FROM UNCODED Uncoded Allergies: SULFA (Allergy, Unknown, 11/20/18) Subjective Patient awake and agitated Objective Last 24 Hour Vital Signs Date Time Temp Pulse Resp B/P (MAP) Pulse Ox O2 Delivery O2 Flow Rate FiO2 03/03/19 12:00 98.1 101 22 109/55 (73) 96 03/03/19 12:00 Room Air Room Air 03/03/19 11:13 93 18 98 Room Air 03/03/19 11:12 94 20 96 Room Air 03/03/19 08:00 Room Air Room Air 03/03/19 08:00 100 03/03/19 08:00 98.4 102 24 104/49 (67) 95 03/03/19 07:17 107 20 100 Room Air 21 03/03/19 07:11 108 20 96 Room Air 03/03/19 04:00 Room Air Room Air 03/03/19 04:00 99.4 104 24 106/46 (66) 96 03/03/19 03:43 106 03/03/19 03:18 102 20 100 Room Air 21 03/03/19 03:07 100 20 95 Room Air 03/03/19 00:00 99.5 93 24 119/42 (67) 97 03/03/19 00:00 Room Air Room Air 03/02/19 23:44 102 03/02/19 23:33 Room Air 21 03/02/19 23:33 Room Air 21 03/02/19 20:09 100 03/02/19 20:00 Room Air Room Air 03/02/19 20:00 101 20 97 Room Air 21 03/02/19 20:00 105 20 98 Room Air 21 03/02/19 20:00 99.5 103 23 113/53 (73) 96 03/02/19 16:00 97.3 106 25 143/53 (83) 96 03/02/19 16:00 Room Air Room Air 03/02/19 15:29 103 03/02/19 15:25 101 20 99 Room Air 21 03/02/19 15:20 99 20 97 Room Air 21 Intake and Output 03/02/19 03/03/19 19:00 07:00 Intake Total 1770 ml 2740 ml Output Total 1600 ml 2000 ml Balance 170 ml 740 ml Free Water 140 ml 800 ml IV Total 910 ml 1100 ml Tube Feeding 720 ml 840 ml Output Urine Total 1600 ml 2000 ml # Bowel Movements 1 1 Laboratory Tests 03/03/19 05:15: Random Vancomycin Level 19.4 Height (Feet): 5 Height (Inches): 8.00 Weight (Pounds): 180 General Appearance: no apparent distress, agitated EENT: normal ENT inspection Neck: normal alignment, supple Cardiovascular: normal rate, regular rhythm Respiratory/Chest: rhonchi - bilaterally Abdomen: non tender, soft Edema: no edema noted Arm (L), no edema noted Arm (R), no edema noted Leg (L), no edema noted Leg (R), no edema noted Pedal (L), no edema noted Pedal (R), no edema noted Generalized Jakub García MD Mar 03, 2019 13:08
[2019-03-03 13:20] LABS: ANION GAP 13 mmol/L (5-15); BLOOD UREA NITROGEN 24 mg/dL (7-18); CALCIUM 8.4 MG/DL (8.5-10.1); CARBON DIOXIDE 22 MMOL/L (21-32); CHLORIDE 113 MMOL/L (98-107); CREATININE 1.3 MG/DL (0.55-1.30); POTASSIUM 3.8 MMOL/L (3.5-5.1); SODIUM 148 MMOL/L (136-145)
--- NOTE | 2019-03-03 13:50 | NUR ---
NURSE NOTES: Collected blood for BMP per Dr García's order, taken to lab.
[2019-03-03] MEDS ORDERED: NS 275ml ONE (15:19)
[2019-03-03] MEDS ORDERED: NS 500ML ONE (15:19)
[2019-03-03 16:00] VITALS: BP 103/51
[2019-03-03 16:45] LABS: ANION GAP 7 mmol/L (5-15); BLOOD UREA NITROGEN 23 mg/dL (7-18); CALCIUM 8.2 MG/DL (8.5-10.1); CARBON DIOXIDE 26 MMOL/L (21-32); CHLORIDE 113 MMOL/L (98-107); CREATININE 1.3 MG/DL (0.55-1.30); POTASSIUM 3.9 MMOL/L (3.5-5.1); SODIUM 146 MMOL/L (136-145)
--- NOTE | 2019-03-03 17:30 | NUR ---
NURSE NOTES: Right TLC on IJ removed by charge nurse, Namita Clemons RN per Dr García's order. Pressure dressing applied, no active bleeding noted at the site. Will continue to monitor.
--- NOTE | 2019-03-03 18:41 | NUR ---
NURSE NOTES: Removed F/C per Dr García's order. Placed pure wick on patient. Will continue to monitor.
--- NOTE | 2019-03-03 19:29 | NUR ---
HAND-OFF: Report given to DAKOTA Gibbons. Patient in stable condition.
--- NOTE | 2019-03-03 19:30 | NUR ---
NURSE NOTES:Received pt awake , incomprehensible, confused and combative when touched , SR on the monitor, Bp stable afebrile., Pt on room air,02 sat >92% given resp tx by RT. Sometimes cooperative but most of the time resistive to care. Tolerating Gtube fdg, Glucerna 1.2 at 60 ml/hr no residuals, pt also has generalized 2-3 + edema and obese, hardly able to turn to her side. Assisted and turned to sides for comfort. Skin is intact. Turned qhrs and prn. Will continue to monitor.
[2019-03-03 20:00] VITALS: BP 100/45
[2019-03-03] MEDS: Dyna-Hex 2% Top Sol 2oz TOPIC SCH (20:00)
[2019-03-03] MEDS ORDERED: Vancomycin 1.25 GM in NS 275 ML IVPB SCH (21:00)
--- NOTE | 2019-03-03 22:00 | NUR ---
NURSE NOTES: suctioned tntk beige secretions moderate in amt. 02 sat > 92% . HOB kept elevated. watch for any resp. distress.
[2019-03-04] VITALS: BP 97/49
[2019-03-04] MEDS: NovoLOG Insulin Flexpen SUBQ SCH ×4 (00:33→18:00)
--- NOTE | 2019-03-04 01:00 | NUR ---
NURSE NOTES: Pt had extremely lg soft bowel movement, complete bed bath with bed changed done.
[2019-03-04] MEDS: Albuterol/Ipratropium 3ml neb HHN SCH ×6 (03:15→22:09)
--- NOTE | 2019-03-04 03:43 | NUR ---
NURSE NOTES:Resting well afebrile.
[2019-03-04 04:00] VITALS: BP 100/37
[2019-03-04 04:41] LABS: BASOPHILS % (AUTO) 0.7 % (0.0-2.0); EOSINOPHILS % (AUTO) 0.2 % (0.0-3.0); HEMATOCRIT 25.9 % (37.0-47.0); HEMOGLOBIN 8.1 G/DL (12.0-16.0); LYMPHOCYTES % (AUTO) 30.3 % (20.0-45.0); MEAN CORPUSCULAR VOLUME 104 FL (80-99); MONOCYTES % (AUTO) 6.3 % (1.0-10.0); NEUTROPHILS % (AUTO) 62.5 % (45.0-75.0); PLATELET COUNT 137 K/UL (150-450); WHITE BLOOD COUNT 9.4 K/UL (4.8-10.8)
[2019-03-04 05:03] LABS: ANION GAP 10 mmol/L (5-15); BLOOD UREA NITROGEN 23 mg/dL (7-18); CALCIUM 8.6 MG/DL (8.5-10.1); CARBON DIOXIDE 23 MMOL/L (21-32); CHLORIDE 112 MMOL/L (98-107); CREATININE 1.4 MG/DL (0.55-1.30); POTASSIUM 4.1 MMOL/L (3.5-5.1); SODIUM 145 MMOL/L (136-145)
[2019-03-04] MEDS: Meropenem 1 GM in NS 55 ML IVPB SCH ×2 (05:40→18:05)
--- NOTE | 2019-03-04 06:00 | NUR ---
NURSE NOTES:Accucheck 158- with coverage pls see emar.
--- NOTE | 2019-03-04 07:20 | NUR ---
NURSE NOTES: Received bedside report from Edwige DUNCAN. Pt. in bed, awake, confused, oriented to herself response when her name called. No sign of distress. No grimacing noted. IV site at right FA #[id number]. in placed patent/intact. HOB elevated at all times. On GTF running Glucerna 1.2 at 60cc/hr x 20 hrs. Tolerating well. Bed in low position, locked. Call light within reach. Will cont. to monitor.
--- NOTE | 2019-03-04 07:23 | NUR ---
HAND-OFF: Report given to Aditi Hunter RN.
--- NOTE | 2019-03-04 07:54 | Nephrology Progress Note ---
Assessment/Plan Status: stable Assessment/Plan: A/P 1) Septic Shock- resolved - Abx mgmt per ID. 2/2 PNA 2) Resp FL- Extubated. Per Dr East 3) Hypernatremia- resolved - D5W discontinued 4) NAOMY on CKD- Cr at baseline 5) E- ABN- replace K+/Mg Phos as needed. 6) DVT prophylaxis- with SCDs Subjective Date patient seen: Mar 04, 2019 Time patient seen: 07:51 Allergies: Coded Allergies: SULFA (SULFONAMIDE ANTIBIOTICS) (Unverified Allergy, Unknown, 09/30/18) COPIED FROM UNCODED Uncoded Allergies: SULFA (Allergy, Unknown, 11/20/18) Subjective Patient improving. No overt distress Objective Last 24 Hour Vital Signs Date Time Temp Pulse Resp B/P (MAP) Pulse Ox O2 Delivery O2 Flow Rate FiO2 03/04/19 07:29 100 21 100 Room Air 21 03/04/19 07:19 101 24 97 Room Air 21 03/04/19 04:00 Room Air Room Air 03/04/19 04:00 98.8 100 22 100/37 (58) 98 03/04/19 04:00 100 03/04/19 03:26 90 18 100 Room Air 21 03/04/19 03:16 88 18 98 Room Air 21 03/04/19 00:00 Room Air Room Air 03/04/19 00:00 99.1 94 21 97/49 (65) 97 03/04/19 00:00 91 03/03/19 23:58 94 18 98 Room Air 21 03/03/19 23:28 91 18 97 Room Air 21 03/03/19 20:00 Room Air Room Air 03/03/19 20:00 99.8 90 22 100/45 (63) 96 03/03/19 19:11 97 18 97 Room Air 21 03/03/19 19:01 96 18 96 Room Air 21 03/03/19 16:00 97 03/03/19 16:00 98.2 96 22 103/51 (68) 96 03/03/19 16:00 Room Air Room Air 03/03/19 15:25 Room Air 21 03/03/19 15:25 Room Air 21 03/03/19 12:00 98.1 101 22 109/55 (73) 96 03/03/19 12:00 105 03/03/19 12:00 Room Air Room Air 03/03/19 11:13 93 18 98 Room Air 21 03/03/19 11:12 94 20 96 Room Air 21 03/03/19 08:00 Room Air Room Air 03/03/19 08:00 100 03/03/19 08:00 98.4 102 24 104/49 (67) 95 Intake and Output 03/03/19 03/04/19 19:00 07:00 Intake Total 1958.35274 ml 2031.66 ml Output Total 2100 ml Balance -141.40400 ml 2031.66 ml Free Water 400 ml 650 ml IV Total 898.06898 ml 721.66 ml Tube Feeding 660 ml 660 ml Output Urine Total 2100 ml # Voids 4 # Bowel Movements 1 3 Laboratory Tests 03/03/19 13:40: Sodium Level 146H, Potassium Level 3.9, Chloride Level 113H, Carbon Dioxide Level 26, Anion Gap 7, Blood Urea Nitrogen 23H, Creatinine 1.3, Estimat Glomerular Filtration Rate , Glucose Level 174H, Calcium Level 8.2L 03/04/19 03:25: Sodium Level 145, Potassium Level 4.1, Chloride Level 112H, Carbon Dioxide Level 23, Anion Gap 10, Blood Urea Nitrogen 23H, Creatinine 1.4H, Estimat Glomerular Filtration Rate , Glucose Level 157H, Calcium Level 8.6, White Blood Count 9.4, Red Blood Count 2.50L, Hemoglobin 8.1L, Hematocrit 25.9L, Mean Corpuscular Volume 104H, Mean Corpuscular Hemoglobin 32.4H, Mean Corpuscular Hemoglobin Concent 31.3L, Red Cell Distribution Width 17.0H, Platelet Count 137L , Mean Platelet Volume 9.6, Neutrophils (%) (Auto) 62.5, Lymphocytes (%) (Auto) 30.3, Monocytes (%) (Auto) 6.3, Eosinophils (%) (Auto) 0.2, Basophils (%) (Auto ) 0.7 Height (Feet): 5 Height (Inches): 8.00 Weight (Pounds): 175 General Appearance: no apparent distress EENT: normal ENT inspection Neck: normal alignment, supple Cardiovascular: normal rate, regular rhythm Respiratory/Chest: lungs clear, normal breath sounds Abdomen: non tender, soft Edema: no edema noted Arm (L), no edema noted Arm (R), no edema noted Leg (L), no edema noted Leg (R), no edema noted Pedal (L), no edema noted Pedal (R), no edema noted Generalized Jakub García MD Mar 04, 2019 07:54
[2019-03-04 08:00] VITALS: BP 102/44
[2019-03-04] MEDS: Pantoprazole Inj IVP SCH (08:33)
[2019-03-04] MEDS: Multivitamins W/Minerals 15 ML UDC GT SCH (08:33)
[2019-03-04] MEDS: Ascorbic Acid 500mg tab GT SCH (08:33)
[2019-03-04] MEDS: Bethanechol 10mg Tab GT SCH ×3 (08:33→18:05)
[2019-03-04] MEDS: Memantine 10mg tab GT SCH ×2 (08:33→20:29)
--- NOTE | 2019-03-04 08:37 | NUR ---
NURSE NOTES:WOUND CARE NOTES: Non-blanching erythema without fluctuance induration noted to R and L heels. Pt did not exhibit any distress when R or L heels palpated. Sacrum is pink and blanchable. No other skin concerns noted. Tx.Plan: Apply Cavilon Skin Barrier to both heels. Cover each heel with Optifoam drsg .Change every 7 days and prn. Apply Moisture Barrier Paste to buttocks .Cover sacrum with Optifoam drsg. Change every 3 days and prn. Reposition at least every 2hours or as tolerated. Off-load heels with pillow.
--- NOTE | 2019-03-04 09:07 | Pulmonology Progress Note ---
Assessment/Plan Assessment/Plan Pneumonia Severe sepsis Respiratory failure; resolved Dehydration Hypernatremia Ethmoid sinusitis Diabetes Acute renal failure leukocytosis protein calorie malnutrition Plan DC planning supportive care as outlined suction as needed oxygen therapy prognosis guarded impression, plan, and exam edited and reviewed in detail care discussed with RN Subjective Interval Events: none new Constitutional: Reports: no symptoms HEENT: Repors: no symptoms Respiratory: Reports: no symptoms Cardiovascular: Reports: no symptoms Gastrointestinal/Abdominal: Reports: no symptoms Genitourinary: Reports: no symptoms Neurologic: Reports: no symptoms Allergies: Coded Allergies: SULFA (SULFONAMIDE ANTIBIOTICS) (Unverified Allergy, Unknown, 09/30/18) COPIED FROM UNCODED Uncoded Allergies: SULFA (Allergy, Unknown, 11/20/18) Objective Last 24 Hour Vital Signs Date Time Temp Pulse Resp B/P (MAP) Pulse Ox O2 Delivery O2 Flow Rate FiO2 03/04/19 07:29 100 21 100 Room Air 21 03/04/19 07:19 101 24 97 Room Air 21 03/04/19 04:00 Room Air Room Air 03/04/19 04:00 98.8 100 22 100/37 (58) 98 03/04/19 04:00 100 03/04/19 03:26 90 18 100 Room Air 21 03/04/19 03:16 88 18 98 Room Air 03/04/19 00:00 Room Air Room Air 03/04/19 00:00 99.1 94 21 97/49 (65) 97 03/04/19 00:00 91 03/03/19 23:58 94 18 98 Room Air 03/03/19 23:28 91 18 97 Room Air 03/03/19 20:00 Room Air Room Air 03/03/19 20:00 99.8 90 22 100/45 (63) 96 03/03/19 19:11 97 18 97 Room Air 21 03/03/19 19:01 96 18 96 Room Air 03/03/19 16:00 97 03/03/19 16:00 98.2 96 22 103/51 (68) 96 03/03/19 16:00 Room Air Room Air 03/03/19 15:25 Room Air 21 03/03/19 15:25 Room Air 21 03/03/19 12:00 98.1 101 22 109/55 (73) 96 03/03/19 12:00 105 03/03/19 12:00 Room Air Room Air 03/03/19 11:13 93 18 98 Room Air 21 03/03/19 11:12 94 20 96 Room Air 21 Intake and Output 03/03/19 03/04/19 19:00 07:00 Intake Total 1958.89380 ml 2031.66 ml Output Total 2100 ml Balance -141.19543 ml 2031.66 ml Free Water 400 ml 650 ml IV Total 898.77014 ml 721.66 ml Tube Feeding 660 ml 660 ml Output Urine Total 2100 ml # Voids 4 # Bowel Movements 1 3 General Appearance: no acute distress HEENT: normocephalic Respiratory/Chest: chest wall non-tender, lungs clear Cardiovascular: normal peripheral pulses, regular rhythm Abdomen: normal bowel sounds Laboratory Tests 03/03/19 13:40: Sodium Level 146H, Potassium Level 3.9, Chloride Level 113H, Carbon Dioxide Level 26, Anion Gap 7, Blood Urea Nitrogen 23H, Creatinine 1.3, Estimat Glomerular Filtration Rate , Glucose Level 174H, Calcium Level 8.2L 03/04/19 03:25: Sodium Level 145, Potassium Level 4.1, Chloride Level 112H, Carbon Dioxide Level 23, Anion Gap 10, Blood Urea Nitrogen 23H, Creatinine 1.4H, Estimat Glomerular Filtration Rate , Glucose Level 157H, Calcium Level 8.6, White Blood Count 9.4, Red Blood Count 2.50L, Hemoglobin 8.1L, Hematocrit 25.9L, Mean Corpuscular Volume 104H, Mean Corpuscular Hemoglobin 32.4H, Mean Corpuscular Hemoglobin Concent 31.3L, Red Cell Distribution Width 17.0H, Platelet Count 137L , Mean Platelet Volume 9.6, Neutrophils (%) (Auto) 62.5, Lymphocytes (%) (Auto) 30.3, Monocytes (%) (Auto) 6.3, Eosinophils (%) (Auto) 0.2, Basophils (%) (Auto ) 0.7 Current Medications Medications (Trade) Dose Ordered Sig/Chandu Route PRN Reason Start Time Stop Time Status Last Admin Dose Admin Acetaminophen (Tylenol) 650 mg Q4H PRN GT Temp > 100.5 03/02/19 11:58 04/01/19 11:57 Albuterol/ Ipratropium (Albuterol/ Ipratropium) 3 ml Q4HRT HHN 03/02/19 15:00 03/14/19 16:00 03/04/19 07:19 Ascorbic Acid (Vitamin C) 500 mg DAILY GT 03/03/19 09:00 03/26/19 08:59 03/04/19 08:33 Atorvastatin Calcium (Lipitor) 10 mg BEDTIME GT 03/02/19 21:00 03/25/19 20:59 03/03/19 20:48 Bethanechol Chloride (Urecholine) 5 mg THREE TIMES A DAY GT 03/02/19 13:00 03/25/19 17:59 03/04/19 08:33 Dextrose (Dextrose 50%) 25 ml Q30M PRN IV Hypoglycemia 03/02/19 12:15 03/25/19 11:44 Dextrose (Dextrose 50%) 50 ml Q30M PRN IV Hypoglycemia 03/02/19 12:15 03/25/19 11:44 Insulin Aspart (NovoLOG) Q6HR SUBQ 03/02/19 18:00 03/25/19 15:29 03/04/19 05:41 Memantine (Namenda) 10 mg Q12HR GT 03/02/19 21:00 03/25/19 20:59 03/04/19 08:33 Meropenem 1 gm/ Sodium Chloride 55 ml @ 110 mls/hr Q12HR@0600,1800 IVPB 03/02/19 18:00 03/05/19 23:00 03/04/19 05:40 Metoclopramide HCl (Reglan) 5 mg Q6H PRN IVP Nausea & Vomiting 03/02/19 11:59 04/01/19 11:58 Mineral Oil (Mineral Oil) 30 ml DAILYPRN PRN GT Constipation 03/02/19 11:59 04/01/19 11:58 Multivitamins (Multivitamins W/ Minerals 15ml Liquid) 15 ml DAILY GT 03/03/19 09:00 03/26/19 08:59 03/04/19 08:33 Pantoprazole (Protonix) 40 mg DAILY IVP 03/03/19 09:00 03/26/19 08:59 03/04/19 08:33 Polyethylene Glycol (Miralax) 17 gm DAILYPRN PRN GT Constipation 03/02/19 11:59 04/01/19 11:58 Vancomycin HCl (Vanco rx to dose) 1 ea DAILY PRN MISC Per rx protocol 03/03/19 09:00 03/29/19 19:29 Vancomycin HCl 1.25 gm/Sodium Chloride 275 ml @ 183.33 mls/ hr Q48H IVPB 03/03/19 21:00 03/08/19 20:59 03/03/19 20:48 Maxim East MD Mar 04, 2019 09:07
[2019-03-04] MEDS ORDERED: D5NS 1000ml IV ONE (10:31)
[2019-03-04] MEDS ORDERED: NS 275ml ONE (10:31)
--- NOTE | 2019-03-04 10:31 | GI Progress Note ---
Assessment/Plan Problems: (1) Fecal impaction ICD Codes: K56.41 - Fecal impaction SNOMED: 27319703 (2) Feeding by G-tube ICD Codes: Z93.1 - Gastrostomy status SNOMED: 415303876, 251414547 (3) Sepsis ICD Codes: A41.9 - Sepsis, unspecified organism SNOMED: 56362249 (4) Anemia ICD Codes: D64.9 - Anemia, unspecified SNOMED: 621839375 (5) Diabetes ICD Codes: E11.9 - Type 2 diabetes mellitus without complications SNOMED: 82307665 (6) Dehydration ICD Codes: E86.0 - Dehydration SNOMED: 71619566 Status: stable, unchanged Status Narrative Discussed with Dr. Rutledge. Assessment/Plan (1) Feeding by G-tube (2) Diabetes (3) Anemia (4) Sepsis (5) Respiratory failure GTF add reglan decrease lactulose fu H&H ppi daily respiratory care ABX had multiple BM extubated Subjective Subjective limited Objective Last 24 Hour Vital Signs Date Time Temp Pulse Resp B/P (MAP) Pulse Ox O2 Delivery O2 Flow Rate FiO2 03/04/19 08:00 Room Air Room Air 03/04/19 08:00 98.1 106 20 102/44 (63) 99 03/04/19 07:52 98 03/04/19 07:29 100 21 100 Room Air 03/04/19 07:19 101 24 97 Room Air 03/04/19 04:00 Room Air Room Air 03/04/19 04:00 98.8 100 22 100/37 (58) 98 03/04/19 04:00 100 03/04/19 03:26 90 18 100 Room Air 03/04/19 03:16 88 18 98 Room Air 03/04/19 00:00 Room Air Room Air 03/04/19 00:00 99.1 94 21 97/49 (65) 97 03/04/19 00:00 91 03/03/19 23:58 94 18 98 Room Air 03/03/19 23:28 91 18 97 Room Air 03/03/19 20:00 Room Air Room Air 03/03/19 20:00 99.8 90 22 100/45 (63) 96 03/03/19 19:11 97 18 97 Room Air 03/03/19 19:01 96 18 96 Room Air 21 03/03/19 16:00 97 03/03/19 16:00 98.2 96 22 103/51 (68) 96 03/03/19 16:00 Room Air Room Air 03/03/19 15:25 Room Air 21 03/03/19 15:25 Room Air 21 03/03/19 12:00 98.1 101 22 109/55 (73) 96 03/03/19 12:00 105 03/03/19 12:00 Room Air Room Air 03/03/19 11:13 93 18 98 Room Air 21 03/03/19 11:12 94 20 96 Room Air 21 Intake and Output 03/03/19 03/04/19 19:00 07:00 Intake Total 1958.80959 ml 2031.66 ml Output Total 2100 ml Balance -141.28213 ml 2031.66 ml Free Water 400 ml 650 ml IV Total 898.79107 ml 721.66 ml Tube Feeding 660 ml 660 ml Output Urine Total 2100 ml # Voids 4 # Bowel Movements 1 3 Laboratory Tests Test 03/03/19 13:40 03/04/19 03:25 Sodium Level 146 MMOL/L (136-145) H 145 MMOL/L (136-145) Potassium Level 3.9 MMOL/L (3.5-5.1) 4.1 MMOL/L (3.5-5.1) Chloride Level 113 MMOL/L (98-107) H 112 MMOL/L (98-107) H Carbon Dioxide Level 26 MMOL/L (21-32) 23 MMOL/L (21-32) Anion Gap 7 mmol/L (5-15) 10 mmol/L (5-15) Blood Urea Nitrogen 23 mg/dL (7-18) H 23 mg/dL (7-18) H Creatinine 1.3 MG/DL (0.55-1.30) 1.4 MG/DL (0.55-1.30) H Estimat Glomerular Filtration Rate mL/min (>60) mL/min (>60) Glucose Level 174 MG/DL (74-106) H 157 MG/DL (74-106) H Calcium Level 8.2 MG/DL (8.5-10.1) L 8.6 MG/DL (8.5-10.1) White Blood Count 9.4 K/UL (4.8-10.8) Red Blood Count 2.50 M/UL (4.20-5.40) L Hemoglobin 8.1 G/DL (12.0-16.0) L Hematocrit 25.9 % (37.0-47.0) L Mean Corpuscular Volume 104 FL (80-99) H Mean Corpuscular Hemoglobin 32.4 PG (27.0-31.0) H Mean Corpuscular Hemoglobin Concent 31.3 G/DL (32.0-36.0) L Red Cell Distribution Width 17.0 % (11.6-14.8) H Platelet Count 137 K/UL (150-450) L Mean Platelet Volume 9.6 FL (6.5-10.1) Neutrophils (%) (Auto) 62.5 % (45.0-75.0) Lymphocytes (%) (Auto) 30.3 % (20.0-45.0) Monocytes (%) (Auto) 6.3 % (1.0-10.0) Eosinophils (%) (Auto) 0.2 % (0.0-3.0) Basophils (%) (Auto) 0.7 % (0.0-2.0) Height (Feet): 5 Height (Inches): 8.00 Weight (Pounds): 175 General Appearance: no apparent distress, alert Cardiovascular: normal rate Respiratory/Chest: normal breath sounds, no respiratory distress Abdominal Exam: normal bowel sounds, non tender, soft, GT site - c/d/i Extremities: non-tender Etienne Patricia NP Mar 04, 2019 10:31
--- NOTE | 2019-03-04 11:51 | Surgery Progress Note ---
Surgery Progress Note Subjective Additional Comments sunil cute events comfortable stable labs improved exam unchanged Objective Last 24 Hour Vital Signs Date Time Temp Pulse Resp B/P (MAP) Pulse Ox O2 Delivery O2 Flow Rate FiO2 03/04/19 11:17 105 21 98 Room Air 21 03/04/19 11:09 104 22 95 Room Air 21 03/04/19 08:00 Room Air Room Air 03/04/19 08:00 98.1 106 20 102/44 (63) 99 03/04/19 07:52 98 03/04/19 07:29 100 21 100 Room Air 21 03/04/19 07:19 101 24 97 Room Air 21 03/04/19 04:00 Room Air Room Air 03/04/19 04:00 98.8 100 22 100/37 (58) 98 03/04/19 04:00 100 03/04/19 03:26 90 18 100 Room Air 21 03/04/19 03:16 88 18 98 Room Air 21 03/04/19 00:00 Room Air Room Air 03/04/19 00:00 99.1 94 21 97/49 (65) 97 03/04/19 00:00 91 03/03/19 23:58 94 18 98 Room Air 21 03/03/19 23:28 91 18 97 Room Air 21 03/03/19 20:00 Room Air Room Air 03/03/19 20:00 99.8 90 22 100/45 (63) 96 03/03/19 19:11 97 18 97 Room Air 21 03/03/19 19:01 96 18 96 Room Air 21 03/03/19 16:00 97 03/03/19 16:00 98.2 96 22 103/51 (68) 96 03/03/19 16:00 Room Air Room Air 03/03/19 15:25 Room Air 21 03/03/19 15:25 Room Air 21 03/03/19 12:00 98.1 101 22 109/55 (73) 96 03/03/19 12:00 105 03/03/19 12:00 Room Air Room Air I&O Intake and Output 03/03/19 03/04/19 19:00 07:00 Intake Total 1958.52116 ml 2091.66 ml Output Total 2100 ml Balance -141.19746 ml 2091.66 ml Free Water 400 ml 650 ml IV Total 898.35834 ml 721.66 ml Tube Feeding 660 ml 720 ml Output Urine Total 2100 ml # Voids 4 # Bowel Movements 1 3 Cardiovascular: RSR Respiratory: clear Abdomen: soft, distended, non-tender, present bowel sounds, non-distended Extremities: no cyanosis Laboratory Tests Test 03/03/19 13:40 03/04/19 03:25 Sodium Level 146 MMOL/L (136-145) H 145 MMOL/L (136-145) Potassium Level 3.9 MMOL/L (3.5-5.1) 4.1 MMOL/L (3.5-5.1) Chloride Level 113 MMOL/L (98-107) H 112 MMOL/L (98-107) H Carbon Dioxide Level 26 MMOL/L (21-32) 23 MMOL/L (21-32) Anion Gap 7 mmol/L (5-15) 10 mmol/L (5-15) Blood Urea Nitrogen 23 mg/dL (7-18) H 23 mg/dL (7-18) H Creatinine 1.3 MG/DL (0.55-1.30) 1.4 MG/DL (0.55-1.30) H Estimat Glomerular Filtration Rate mL/min (>60) mL/min (>60) Glucose Level 174 MG/DL (74-106) H 157 MG/DL (74-106) H Calcium Level 8.2 MG/DL (8.5-10.1) L 8.6 MG/DL (8.5-10.1) White Blood Count 9.4 K/UL (4.8-10.8) Red Blood Count 2.50 M/UL (4.20-5.40) L Hemoglobin 8.1 G/DL (12.0-16.0) L Hematocrit 25.9 % (37.0-47.0) L Mean Corpuscular Volume 104 FL (80-99) H Mean Corpuscular Hemoglobin 32.4 PG (27.0-31.0) H Mean Corpuscular Hemoglobin Concent 31.3 G/DL (32.0-36.0) L Red Cell Distribution Width 17.0 % (11.6-14.8) H Platelet Count 137 K/UL (150-450) L Mean Platelet Volume 9.6 FL (6.5-10.1) Neutrophils (%) (Auto) 62.5 % (45.0-75.0) Lymphocytes (%) (Auto) 30.3 % (20.0-45.0) Monocytes (%) (Auto) 6.3 % (1.0-10.0) Eosinophils (%) (Auto) 0.2 % (0.0-3.0) Basophils (%) (Auto) 0.7 % (0.0-2.0) Plan Problems: (1) Fecal impaction Assessment & Plan: patient with fecal impaction KUB noted unable to improve with enema and g tube Rx recommend manual disimpaction with assistance of nursing staff patient was turned and manual disimpaction performed at bedside. significant fecal retention in rectum past what my finger could reach. stool soft and not hard. rectum cleared of stool cont with oral rx and enema will perform manual prn will follow with recs thank you (2) Sepsis Assessment & Plan: leukocytosis lactic acidosis micro noted on vent support IV Abx as per ID will follow trend labs thank you Helio Salgado Mar 04, 2019 11:51
[2019-03-04 12:00] VITALS: BP 109/40
--- NOTE | 2019-03-04 12:35 | Infectious Diseases Prog Note ---
Assessment/Plan Assessment/Plan Assessment: Septic Shock, SP- likely 2ry to PNA -03/01 CXR: * Interval removal of endotracheal tube. Worsening of aeration with increased haziness of the pulmonary vascularity suggesting development of mild interstitial edema/fluid overload. Bibasilar airspace opacities also increased which may be related to worsening subsegmental atelectasis or worsening pneumonia. Correlate clinically. Small left pleural effusion is suggested. -KUB: Fecal impaction distal sigmoid/rectum. -02/25 CXR: Development of lower lobe infiltrates. Correlate clinically for pneumonia -CXR:Endotracheal tube 2.8 cm above the ludwig in good position. Mild cardiomegaly. Mild right upper lobe interstitial prominence. -CT head: No acute intracranial process. Involutional changes with small vessel disease. Moderate ethmoid sinus mucosal thickening and fluid. Small fluid level in the right sphenoid sinus. -u/a wbc 5-10, nit neg, leuk +1; ucx Neg -02/23 Bcx Neg; 02/25 Bcx NTD -sp cx ESBL E.coli, MRSA, P.stuarti (S Ceftriaxone, Ertapenem, Zosyn) -2d Echo: no vegetations -legionella ag urine neg Acute respiratory failure s/p intubation 02/23- s/p extubated 03/01 Fever; SP Leukocytosis; SP Lactic acidosis; SP NAOMY on CKD Hypernatremia hx of MRSA bacteremia 11/2018 -TTE no vegetation hx of ESBL E.coli UTI 11/2018 HTN Dm2 CHF COPD dysphagia s/p GT HLD OA advanced Dementia non verbal SNF resident Plan: -Continue Meropenem #04/02- for ESBL PNA -Cont IV Vancomycin #05/02-14 for MRSA PNA -02/28 SP Doxycycline #6 -8/7 SP Amikacin #4 -8/6 SP IV Vancomycin #4 -8/ SP Zosyn #2 -/ SP Cefepime x1, Flagyl x1 -f/u cx -Monitor CBC/BMP, temperatures -Cdiff if diarrhea -CXR Thank you for this consultation. Will continue to follow along with you. Discussed with RN. Subjective Allergies: Coded Allergies: SULFA (SULFONAMIDE ANTIBIOTICS) (Unverified Allergy, Unknown, 09/30/18) COPIED FROM UNCODED Uncoded Allergies: SULFA (Allergy, Unknown, 11/20/18) Subjective afebrile no leukocytosis resolved at RA Objective Vital Signs Last 24 Hour Vital Signs Date Time Temp Pulse Resp B/P (MAP) Pulse Ox O2 Delivery O2 Flow Rate FiO2 03/04/19 12:00 Room Air Room Air 03/04/19 12:00 98.4 106 22 109/40 (63) 95 03/04/19 11:17 105 21 98 Room Air 21 03/04/19 11:09 104 22 95 Room Air 21 03/04/19 08:00 Room Air Room Air 03/04/19 08:00 98.1 106 20 102/44 (63) 99 03/04/19 07:52 98 03/04/19 07:29 100 21 100 Room Air 21 03/04/19 07:19 101 24 97 Room Air 21 03/04/19 04:00 Room Air Room Air 03/04/19 04:00 98.8 100 22 100/37 (58) 98 03/04/19 04:00 100 03/04/19 03:26 90 18 100 Room Air 21 03/04/19 03:16 88 18 98 Room Air 21 03/04/19 00:00 Room Air Room Air 03/04/19 00:00 99.1 94 21 97/49 (65) 97 03/04/19 00:00 91 03/03/19 23:58 94 18 98 Room Air 21 03/03/19 23:28 91 18 97 Room Air 03/03/19 20:00 Room Air Room Air 03/03/19 20:00 99.8 90 22 100/45 (63) 96 03/03/19 19:11 97 18 97 Room Air 21 03/03/19 19:01 96 18 96 Room Air 21 03/03/19 16:00 97 03/03/19 16:00 98.2 96 22 103/51 (68) 96 03/03/19 16:00 Room Air Room Air 03/03/19 15:25 Room Air 21 03/03/19 15:25 Room Air 21 Height (Feet): 5 Height (Inches): 8.00 Weight (Pounds): 175 Objective General Appearance: lethargic, moderate distress Lines, tubes and drains: peripheral, central line, gtube HEENT: normocephalic, atraumatic, anicteric, mucous membranes moist, PERRL, EOMI, pharynx normal, supple, no JVD Neck: non-tender, normal alignment, supple, normal inspection Respiratory/Chest: accessory muscle use, crackles/rales, rhonchi - bilaterally , rhonchi - left Cardiovascular/Chest: normal peripheral pulses, regular rhythm, tachycardia Abdomen: normal bowel sounds, non tender, soft, no organomegaly, no mass Extremities: normal range of motion, non-tender, normal inspection, no calf tenderness, normal capillary refill, non-pitting Skin Exam: normal pigmentation, warm/dry, cyanotic Neurologic: sensory deficit, unresponsiveness Laboratory Tests Test 03/03/19 13:40 03/04/19 03:25 Sodium Level 146 MMOL/L (136-145) H 145 MMOL/L (136-145) Potassium Level 3.9 MMOL/L (3.5-5.1) 4.1 MMOL/L (3.5-5.1) Chloride Level 113 MMOL/L (98-107) H 112 MMOL/L (98-107) H Carbon Dioxide Level 26 MMOL/L (21-32) 23 MMOL/L (21-32) Anion Gap 7 mmol/L (5-15) 10 mmol/L (5-15) Blood Urea Nitrogen 23 mg/dL (7-18) H 23 mg/dL (7-18) H Creatinine 1.3 MG/DL (0.55-1.30) 1.4 MG/DL (0.55-1.30) H Estimat Glomerular Filtration Rate mL/min (>60) mL/min (>60) Glucose Level 174 MG/DL (74-106) H 157 MG/DL (74-106) H Calcium Level 8.2 MG/DL (8.5-10.1) L 8.6 MG/DL (8.5-10.1) White Blood Count 9.4 K/UL (4.8-10.8) Red Blood Count 2.50 M/UL (4.20-5.40) L Hemoglobin 8.1 G/DL (12.0-16.0) L Hematocrit 25.9 % (37.0-47.0) L Mean Corpuscular Volume 104 FL (80-99) H Mean Corpuscular Hemoglobin 32.4 PG (27.0-31.0) H Mean Corpuscular Hemoglobin Concent 31.3 G/DL (32.0-36.0) L Red Cell Distribution Width 17.0 % (11.6-14.8) H Platelet Count 137 K/UL (150-450) L Mean Platelet Volume 9.6 FL (6.5-10.1) Neutrophils (%) (Auto) 62.5 % (45.0-75.0) Lymphocytes (%) (Auto) 30.3 % (20.0-45.0) Monocytes (%) (Auto) 6.3 % (1.0-10.0) Eosinophils (%) (Auto) 0.2 % (0.0-3.0) Basophils (%) (Auto) 0.7 % (0.0-2.0) Current Medications Medications (Trade) Dose Ordered Sig/Chandu Route PRN Reason Start Time Stop Time Status Last Admin Dose Admin Acetaminophen (Tylenol) 650 mg Q4H PRN GT Temp > 100.5 03/02/19 11:58 04/01/19 11:57 Albuterol/ Ipratropium (Albuterol/ Ipratropium) 3 ml Q4HRT HHN 03/02/19 15:00 03/14/19 16:00 03/04/19 11:09 Ascorbic Acid (Vitamin C) 500 mg DAILY GT 03/03/19 09:00 03/26/19 08:59 03/04/19 08:33 Atorvastatin Calcium (Lipitor) 10 mg BEDTIME GT 03/02/19 21:00 03/25/19 20:59 03/03/19 20:48 Bethanechol Chloride (Urecholine) 5 mg THREE TIMES A DAY GT 03/02/19 13:00 03/25/19 17:59 03/04/19 08:33 Dextrose (Dextrose 50%) 25 ml Q30M PRN IV Hypoglycemia 03/02/19 12:15 03/25/19 11:44 Dextrose (Dextrose 50%) 50 ml Q30M PRN IV Hypoglycemia 03/02/19 12:15 03/25/19 11:44 Insulin Aspart (NovoLOG) Q6HR SUBQ 03/02/19 18:00 03/25/19 15:29 03/04/19 05:41 Memantine (Namenda) 10 mg Q12HR GT 03/02/19 21:00 9/2/19 20:59 03/04/19 08:33 Meropenem 1 gm/ Sodium Chloride 55 ml @ 110 mls/hr Q12HR@0600,1800 IVPB 03/02/19 18:00 03/05/19 23:00 03/04/19 05:40 Metoclopramide HCl (Reglan) 5 mg Q6H PRN IVP Nausea & Vomiting 03/02/19 11:59 04/01/19 11:58 Mineral Oil (Mineral Oil) 30 ml DAILYPRN PRN GT Constipation 03/02/19 11:59 04/01/19 11:58 Multivitamins (Multivitamins W/ Minerals 15ml Liquid) 15 ml DAILY GT 03/03/19 09:00 03/26/19 08:59 03/04/19 08:33 Pantoprazole (Protonix) 40 mg DAILY IVP 03/03/19 09:00 03/26/19 08:59 03/04/19 08:33 Polyethylene Glycol (Miralax) 17 gm DAILYPRN PRN GT Constipation 03/02/19 11:59 04/01/19 11:58 Vancomycin HCl (Vanco rx to dose) 1 ea DAILY PRN MISC Per rx protocol 03/03/19 09:00 03/29/19 19:29 Vancomycin HCl 1.25 gm/Sodium Chloride 275 ml @ 183.33 mls/ hr Q48H IVPB 03/03/19 21:00 03/08/19 20:59 03/03/19 20:48 Frances Chavarria M.D. Mar 04, 2019 12:35
--- NOTE | 2019-03-04 13:07 | NUR ---
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 98.4 HR 106 RR 22 B/P 102/44 BUN 23 CR 1.4 IS: VANCO IV PROTONIX IV ALB HHN STEP DOWN STATUS
--- NOTE | 2019-03-04 15:10 | NUR ---
*-* INSURANCE *--* ALL CLINICALS AND REVIEWS HAVE BEEN FAXED TO: BRENNA: KIANA P:[phone] FAX: [phone] (FAX CLINICALS)
[2019-03-04 16:00] VITALS: BP 100/71
--- NOTE | 2019-03-04 16:01 | Diagnostic Imaging Report ---
Indication: Cough Comparison: 03/01/2019 A single view chest radiograph was obtained. Findings: Basilar densities have improved. Heart is borderline enlarged. There is suggestion of mild pulmonary vascular congestion. There may be a small left pleural effusion. Right jugular line was removed. IMPRESSION: Possible small left pleural effusion. Improved vascular congestion
--- NOTE | 2019-03-04 19:20 | NUR ---
NURSE NOTES: Received patient from DAKOTA Dougherty. patient is AO X1, responsive to name, unable to make needs known. no s/sx of pain noted at this time. patient is on room air, no s/sx of respiratory distress noted at this time. G-tube site is patent and intact, running feeding at prescribed rate. IV site is patent and intact, asymptomatic. Purewick is patent and intact, draining well. bed in lowest position and locked, siderails up X2, call light within reach. will continue to monitor.
--- NOTE | 2019-03-04 19:36 | NUR ---
HAND-OFF: Report given to Mira DUNCAN. Pt. remain stable.
[2019-03-04 20:00] VITALS: BP 129/52
[2019-03-05] VITALS: BP 120/50
[2019-03-05] MEDS: Albuterol/Ipratropium 3ml neb HHN SCH ×4 (03:00→15:00)
[2019-03-05 04:00] VITALS: BP 113/55
[2019-03-05 04:29] LABS: BASOPHILS % (AUTO) 0.6 % (0.0-2.0); EOSINOPHILS % (AUTO) 0.3 % (0.0-3.0); HEMATOCRIT 28.6 % (37.0-47.0); HEMOGLOBIN 8.7 G/DL (12.0-16.0); LYMPHOCYTES % (AUTO) 26.5 % (20.0-45.0); MEAN CORPUSCULAR VOLUME 105 FL (80-99); MONOCYTES % (AUTO) 7.1 % (1.0-10.0); NEUTROPHILS % (AUTO) 65.5 % (45.0-75.0); PLATELET COUNT 164 K/UL (150-450); RED BLOOD COUNT 2.72 M/UL (4.20-5.40); RED CELL DISTRIBUTION WIDTH 16.2 % (11.6-14.8); WHITE BLOOD COUNT 9.5 K/UL (4.8-10.8)
[2019-03-05 04:40] LABS: ANION GAP 10 mmol/L (5-15); BLOOD UREA NITROGEN 22 mg/dL (7-18); CALCIUM 9.1 MG/DL (8.5-10.1); CARBON DIOXIDE 27 MMOL/L (21-32); CHLORIDE 112 MMOL/L (98-107); CREATININE 1.4 MG/DL (0.55-1.30); POTASSIUM 4.1 MMOL/L (3.5-5.1); SODIUM 149 MMOL/L (136-145)
[2019-03-05] MEDS: NovoLOG Insulin Flexpen SUBQ SCH ×3 (06:00→12:28)
[2019-03-05] MEDS: Meropenem 1 GM in NS 55 ML IVPB SCH (06:40)
--- NOTE | 2019-03-05 07:30 | NUR ---
HAND-OFF: Report given to DAKOTA Dougherty. patient is in stable condition.
--- NOTE | 2019-03-05 07:33 | NUR ---
NURSE NOTES: Received bedside update report from Mira DUNCAN. Pt. in bed, awake, non-verbal, combative. Pt. resistive to care most of the time. No sign of distress noted. No grimacing noted. On GTF Glucerna 1.2 x 20hrs. @ 60cc/hr. patent/intact. Tolerating well. HOB elevated at all times. IV at right FA #22g. in placed. Bed in low position, locked. Call light within reach. Will cont. to monitor.
--- NOTE | 2019-03-05 07:44 | Nephrology Progress Note ---
Assessment/Plan Status: stable, unchanged Assessment/Plan: A/P 1) Septic Shock- resolved - Abx mgmt per ID. 2/2 PNA 2) Resp FL- Extubated. 3) Hypernatremia- start free water thru PEG - NA 149 - OK for DC from renal point 4) CKD 3B- Cr at baseline 1.3-1.4 5) E- ABN- replace K+/Mg Phos as needed. 6) DVT prophylaxis- with SCDs Subjective Date patient seen: Mar 05, 2019 Time patient seen: 07:42 ROS Limited/Unobtainable: No Allergies: Coded Allergies: SULFA (SULFONAMIDE ANTIBIOTICS) (Unverified Allergy, Unknown, 09/30/18) COPIED FROM UNCODED Uncoded Allergies: SULFA (Allergy, Unknown, 11/20/18) Subjective Patient improving. Somnolent but arousable Objective Last 24 Hour Vital Signs Date Time Temp Pulse Resp B/P (MAP) Pulse Ox O2 Delivery O2 Flow Rate FiO2 03/05/19 07:19 102 20 98 Room Air 03/05/19 07:16 98 20 97 Room Air 03/05/19 04:00 98.0 104 24 113/55 (74) 95 03/05/19 04:00 Room Air Room Air 03/05/19 04:00 98 03/05/19 03:00 Room Air 21 03/05/19 03:00 Room Air 03/05/19 00:00 97.5 107 24 120/50 (73) 96 03/05/19 00:00 96 03/05/19 00:00 Room Air Room Air 03/04/19 22:14 95 22 98 Room Air 03/04/19 22:09 92 22 96 Room Air 03/04/19 20:00 Room Air Room Air 03/04/19 20:00 102 03/04/19 20:00 97.9 106 24 129/52 (77) 95 03/04/19 19:10 108 22 98 Room Air 03/04/19 19:01 90 20 95 Room Air 03/04/19 16:00 Room Air Room Air 03/04/19 16:00 98.2 98 18 100/71 (81) 95 03/04/19 15:44 91 03/04/19 15:10 104 21 97 Room Air 03/04/19 14:59 102 22 94 Room Air 21 03/04/19 12:00 Room Air Room Air 03/04/19 12:00 98.4 106 22 109/40 (63) 95 03/04/19 11:45 103 03/04/19 11:17 105 21 98 Room Air 21 03/04/19 11:09 104 22 95 Room Air 21 03/04/19 08:00 Room Air Room Air 03/04/19 08:00 98.1 106 20 102/44 (63) 99 03/04/19 07:52 98 Intake and Output 03/04/19 03/05/19 19:00 07:00 Intake Total 780 ml 1055 ml Output Total 300 ml Balance 480 ml 1055 ml Free Water 300 ml 280 ml IV Total 55 ml Tube Feeding 480 ml 720 ml Output Urine Total 300 ml # Bowel Movements 1 2 Laboratory Tests 03/05/19 03:15: White Blood Count 9.5, Red Blood Count 2.72L, Hemoglobin 8.7L, Hematocrit 28.6L , Mean Corpuscular Volume 105H, Mean Corpuscular Hemoglobin 32.0H, Mean Corpuscular Hemoglobin Concent 30.4L, Red Cell Distribution Width 16.2H, Platelet Count 164, Mean Platelet Volume 9.5, Neutrophils (%) (Auto) 65.5, Lymphocytes (%) (Auto) 26.5, Monocytes (%) (Auto) 7.1, Eosinophils (%) (Auto) 0.3, Basophils (%) (Auto) 0.6, Sodium Level 149H, Potassium Level 4.1, Chloride Level 112H, Carbon Dioxide Level 27, Anion Gap 10, Blood Urea Nitrogen 22H, Creatinine 1.4H, Estimat Glomerular Filtration Rate , Glucose Level 136H, Calcium Level 9.1 Height (Feet): 5 Height (Inches): 8.00 Weight (Pounds): 175 General Appearance: no apparent distress, agitated EENT: normal ENT inspection Neck: normal alignment, supple Cardiovascular: normal rate, regular rhythm Respiratory/Chest: rhonchi - bilaterally Abdomen: non tender, soft Edema: no edema noted Arm (L), no edema noted Arm (R), no edema noted Leg (L), no edema noted Leg (R), no edema noted Pedal (L), no edema noted Pedal (R), no edema noted Generalized Jakub García MD Mar 05, 2019 07:44
[2019-03-05 08:00] VITALS: BP 108/50
--- NOTE | 2019-03-05 08:12 | Surgery Progress Note ---
Surgery Progress Note Subjective Additional Comments labs stable exam unchanged recovering Objective Last 24 Hour Vital Signs Date Time Temp Pulse Resp B/P (MAP) Pulse Ox O2 Delivery O2 Flow Rate FiO2 03/05/19 07:19 102 20 98 Room Air 21 03/05/19 07:16 98 20 97 Room Air 21 03/05/19 04:00 98.0 104 24 113/55 (74) 95 03/05/19 04:00 Room Air Room Air 03/05/19 04:00 98 03/05/19 03:00 Room Air 21 03/05/19 03:00 Room Air 21 03/05/19 00:00 97.5 107 24 120/50 (73) 96 03/05/19 00:00 96 03/05/19 00:00 Room Air Room Air 03/04/19 22:14 95 22 98 Room Air 21 03/04/19 22:09 92 22 96 Room Air 21 03/04/19 20:00 Room Air Room Air 03/04/19 20:00 102 03/04/19 20:00 97.9 106 24 129/52 (77) 95 03/04/19 19:10 108 22 98 Room Air 21 03/04/19 19:01 90 20 95 Room Air 21 03/04/19 16:00 Room Air Room Air 03/04/19 16:00 98.2 98 18 100/71 (81) 95 03/04/19 15:44 91 03/04/19 15:10 104 21 97 Room Air 21 03/04/19 14:59 102 22 94 Room Air 03/04/19 12:00 Room Air Room Air 03/04/19 12:00 98.4 106 22 109/40 (63) 95 03/04/19 11:45 103 03/04/19 11:17 105 21 98 Room Air 21 03/04/19 11:09 104 22 95 Room Air 21 I&O Intake and Output 03/04/19 03/05/19 19:00 07:00 Intake Total 780 ml 1055 ml Output Total 300 ml Balance 480 ml 1055 ml Free Water 300 ml 280 ml IV Total 55 ml Tube Feeding 480 ml 720 ml Output Urine Total 300 ml # Bowel Movements 1 2 Dressing: saturated Wound: clean Cardiovascular: RSR Respiratory: clear Abdomen: soft, present bowel sounds, non-distended Extremities: other Laboratory Tests Test 03/05/19 03:15 White Blood Count 9.5 K/UL (4.8-10.8) Red Blood Count 2.72 M/UL (4.20-5.40) L Hemoglobin 8.7 G/DL (12.0-16.0) L Hematocrit 28.6 % (37.0-47.0) L Mean Corpuscular Volume 105 FL (80-99) H Mean Corpuscular Hemoglobin 32.0 PG (27.0-31.0) H Mean Corpuscular Hemoglobin Concent 30.4 G/DL (32.0-36.0) L Red Cell Distribution Width 16.2 % (11.6-14.8) H Platelet Count 164 K/UL (150-450) Mean Platelet Volume 9.5 FL (6.5-10.1) Neutrophils (%) (Auto) 65.5 % (45.0-75.0) Lymphocytes (%) (Auto) 26.5 % (20.0-45.0) Monocytes (%) (Auto) 7.1 % (1.0-10.0) Eosinophils (%) (Auto) 0.3 % (0.0-3.0) Basophils (%) (Auto) 0.6 % (0.0-2.0) Sodium Level 149 MMOL/L (136-145) H Potassium Level 4.1 MMOL/L (3.5-5.1) Chloride Level 112 MMOL/L (98-107) H Carbon Dioxide Level 27 MMOL/L (21-32) Anion Gap 10 mmol/L (5-15) Blood Urea Nitrogen 22 mg/dL (7-18) H Creatinine 1.4 MG/DL (0.55-1.30) H Estimat Glomerular Filtration Rate mL/min (>60) Glucose Level 136 MG/DL (74-106) H Calcium Level 9.1 MG/DL (8.5-10.1) Plan Problems: (1) Fecal impaction Assessment & Plan: patient with fecal impaction KUB noted unable to improve with enema and g tube Rx recommend manual disimpaction with assistance of nursing staff patient was turned and manual disimpaction performed at bedside. significant fecal retention in rectum past what my finger could reach. stool soft and not hard. rectum cleared of stool cont with oral rx and enema will perform manual prn will follow with recs thank you (2) Sepsis Assessment & Plan: leukocytosis lactic acidosis micro noted on vent support IV Abx as per ID will follow trend labs thank you Helio Salgado Mar 05, 2019 08:12
[2019-03-05] MEDS: Pantoprazole Inj IVP SCH (09:09)
[2019-03-05] MEDS: Ascorbic Acid 500mg tab GT SCH (09:09)
[2019-03-05] MEDS: Memantine 10mg tab GT SCH (09:09)
[2019-03-05] MEDS: Multivitamins W/Minerals 15 ML UDC GT SCH (09:09)
[2019-03-05] MEDS: Bethanechol 10mg Tab GT SCH ×2 (09:10→13:33)
--- NOTE | 2019-03-05 09:58 | Pulmonology Progress Note ---
Assessment/Plan Assessment/Plan Pneumonia Severe sepsis Respiratory failure; resolved Dehydration Hypernatremia Ethmoid sinusitis Diabetes Acute renal failure leukocytosis protein calorie malnutrition Plan DC back to SNF supportive care as outlined suction as needed oxygen therapy prognosis guarded impression, plan, and exam edited and reviewed in detail care discussed with RN Subjective Interval Events: S/p fecal disimpaction Constitutional: Reports: no symptoms HEENT: Repors: no symptoms Respiratory: Reports: no symptoms Cardiovascular: Reports: no symptoms Gastrointestinal/Abdominal: Reports: no symptoms Genitourinary: Reports: no symptoms Allergies: Coded Allergies: SULFA (SULFONAMIDE ANTIBIOTICS) (Unverified Allergy, Unknown, 09/30/18) COPIED FROM UNCODED Uncoded Allergies: SULFA (Allergy, Unknown, 11/20/18) Objective Last 24 Hour Vital Signs Date Time Temp Pulse Resp B/P (MAP) Pulse Ox O2 Delivery O2 Flow Rate FiO2 03/05/19 08:00 98.3 89 21 108/50 (69) 98 03/05/19 07:58 100 03/05/19 07:19 102 20 98 Room Air 03/05/19 07:16 98 20 97 Room Air 03/05/19 04:00 98.0 104 24 113/55 (74) 95 03/05/19 04:00 Room Air Room Air 03/05/19 04:00 98 03/05/19 03:00 Room Air 03/05/19 03:00 Room Air 03/05/19 00:00 97.5 107 24 120/50 (73) 96 03/05/19 00:00 96 03/05/19 00:00 Room Air Room Air 03/04/19 22:14 95 22 98 Room Air 03/04/19 22:09 92 22 96 Room Air 03/04/19 20:00 Room Air Room Air 03/04/19 20:00 102 03/04/19 20:00 97.9 106 24 129/52 (77) 95 03/04/19 19:10 108 22 98 Room Air 03/04/19 19:01 90 20 95 Room Air 03/04/19 16:00 Room Air Room Air 03/04/19 16:00 98.2 98 18 100/71 (81) 95 03/04/19 15:44 91 03/04/19 15:10 104 21 97 Room Air 19 14:59 102 22 94 Room Air 21 03/04/19 12:00 Room Air Room Air 03/04/19 12:00 98.4 106 22 109/40 (63) 95 03/04/19 11:45 103 03/04/19 11:17 105 21 98 Room Air 21 03/04/19 11:09 104 22 95 Room Air 21 Intake and Output 03/04/19 03/05/19 19:00 07:00 Intake Total 780 ml 1055 ml Output Total 300 ml Balance 480 ml 1055 ml Free Water 300 ml 280 ml IV Total 55 ml Tube Feeding 480 ml 720 ml Output Urine Total 300 ml # Bowel Movements 1 2 General Appearance: no acute distress HEENT: normocephalic Respiratory/Chest: chest wall non-tender, lungs clear Cardiovascular: normal peripheral pulses, normal rate Abdomen: normal bowel sounds Laboratory Tests 03/05/19 03:15: White Blood Count 9.5, Red Blood Count 2.72L, Hemoglobin 8.7L, Hematocrit 28.6L , Mean Corpuscular Volume 105H, Mean Corpuscular Hemoglobin 32.0H, Mean Corpuscular Hemoglobin Concent 30.4L, Red Cell Distribution Width 16.2H, Platelet Count 164, Mean Platelet Volume 9.5, Neutrophils (%) (Auto) 65.5, Lymphocytes (%) (Auto) 26.5, Monocytes (%) (Auto) 7.1, Eosinophils (%) (Auto) 0.3, Basophils (%) (Auto) 0.6, Sodium Level 149H, Potassium Level 4.1, Chloride Level 112H, Carbon Dioxide Level 27, Anion Gap 10, Blood Urea Nitrogen 22H, Creatinine 1.4H, Estimat Glomerular Filtration Rate , Glucose Level 136H, Calcium Level 9.1 Current Medications Medications (Trade) Dose Ordered Sig/Chandu Route PRN Reason Start Time Stop Time Status Last Admin Dose Admin Acetaminophen (Tylenol) 650 mg Q4H PRN GT Temp > 100.5 03/02/19 11:58 04/01/19 11:57 Albuterol/ Ipratropium (Albuterol/ Ipratropium) 3 ml Q4HRT HHN 03/02/19 15:00 03/14/19 16:00 03/05/19 07:16 Ascorbic Acid (Vitamin C) 500 mg DAILY GT 03/03/19 09:00 03/26/19 08:59 03/05/19 09:09 Atorvastatin Calcium (Lipitor) 10 mg BEDTIME GT 03/02/19 21:00 03/25/19 20:59 03/04/19 20:29 Bethanechol Chloride (Urecholine) 5 mg THREE TIMES A DAY GT 03/02/19 13:00 03/25/19 17:59 03/05/19 09:10 Dextrose (Dextrose 50%) 25 ml Q30M PRN IV Hypoglycemia 03/02/19 12:15 03/25/19 11:44 Dextrose (Dextrose 50%) 50 ml Q30M PRN IV Hypoglycemia 03/02/19 12:15 03/25/19 11:44 Insulin Aspart (NovoLOG) Q6HR SUBQ 03/02/19 18:00 03/25/19 15:29 03/04/19 12:35 Memantine (Namenda) 10 mg Q12HR GT 03/02/19 21:00 03/25/19 20:59 03/05/19 09:09 Meropenem 1 gm/ Sodium Chloride 55 ml @ 110 mls/hr Q12HR@0600,1800 IVPB 03/02/19 18:00 03/05/19 23:00 03/05/19 06:40 Metoclopramide HCl (Reglan) 5 mg Q6H PRN IVP Nausea & Vomiting 03/02/19 11:59 04/01/19 11:58 Mineral Oil (Mineral Oil) 30 ml DAILYPRN PRN GT Constipation 03/02/19 11:59 04/01/19 11:58 Multivitamins (Multivitamins W/ Minerals 15ml Liquid) 15 ml DAILY GT 03/03/19 09:00 03/26/19 08:59 03/05/19 09:09 Pantoprazole (Protonix) 40 mg DAILY IVP 03/03/19 09:00 03/26/19 08:59 03/05/19 09:09 Polyethylene Glycol (Miralax) 17 gm DAILYPRN PRN GT Constipation 03/02/19 11:59 04/01/19 11:58 Vancomycin HCl (Vanco rx to dose) 1 ea DAILY PRN MISC Per rx protocol 03/03/19 09:00 03/29/19 19:29 Vancomycin HCl 1.25 gm/Sodium Chloride 275 ml @ 183.33 mls/ hr Q48H IVPB 03/03/19 21:00 03/08/19 20:59 03/03/19 20:48 Maxim East MD Mar 05, 2019 09:58
--- NOTE | 2019-03-05 10:42 | GI Progress Note ---
Assessment/Plan Problems: (1) Fecal impaction ICD Codes: K56.41 - Fecal impaction SNOMED: 90429707 (2) Feeding by G-tube ICD Codes: Z93.1 - Gastrostomy status SNOMED: 389896390, 613117728 (3) Sepsis ICD Codes: A41.9 - Sepsis, unspecified organism SNOMED: 55871467 (4) Anemia ICD Codes: D64.9 - Anemia, unspecified SNOMED: 266246464 (5) Diabetes ICD Codes: E11.9 - Type 2 diabetes mellitus without complications SNOMED: 35793335 (6) Dehydration ICD Codes: E86.0 - Dehydration SNOMED: 18922529 Status: unchanged Status Narrative Discussed with Dr. Rutledge. Assessment/Plan (1) Feeding by G-tube (2) Diabetes (3) Anemia (4) Sepsis (5) Respiratory failure GTF reglan decrease lactulose fu H&H ppi daily respiratory care ABX had multiple BM extubated The patient was seen and examined at bedside and all new and available data was reviewed in the patients chart. I agree with the above findings, impression and plan. (Patient seen earlier today. Signature stamp does not reflect patient encounter time.). - Ramos Rutledge MD Subjective Subjective limited Objective Last 24 Hour Vital Signs Date Time Temp Pulse Resp B/P (MAP) Pulse Ox O2 Delivery O2 Flow Rate FiO2 03/05/19 08:00 98.3 89 21 108/50 (69) 98 03/05/19 07:58 100 03/05/19 07:19 102 20 98 Room Air 03/05/19 07:16 98 20 97 Room Air 03/05/19 04:00 98.0 104 24 113/55 (74) 95 03/05/19 04:00 Room Air Room Air 03/05/19 04:00 98 03/05/19 03:00 Room Air 21 03/05/19 03:00 Room Air 03/05/19 00:00 97.5 107 24 120/50 (73) 96 03/05/19 00:00 96 03/05/19 00:00 Room Air Room Air 03/04/19 22:14 95 22 98 Room Air 21 03/04/19 22:09 92 22 96 Room Air 21 03/04/19 20:00 Room Air Room Air 03/04/19 20:00 102 03/04/19 20:00 97.9 106 24 129/52 (77) 95 03/04/19 19:10 108 22 98 Room Air 21 03/04/19 19:01 90 20 95 Room Air 21 03/04/19 16:00 Room Air Room Air 03/04/19 16:00 98.2 98 18 100/71 (81) 95 03/04/19 15:44 91 03/04/19 15:10 104 21 97 Room Air 21 03/04/19 14:59 102 22 94 Room Air 21 03/04/19 12:00 Room Air Room Air 03/04/19 12:00 98.4 106 22 109/40 (63) 95 03/04/19 11:45 103 03/04/19 11:17 105 21 98 Room Air 21 03/04/19 11:09 104 22 95 Room Air 21 Intake and Output 03/04/19 03/05/19 19:00 07:00 Intake Total 780 ml 1055 ml Output Total 300 ml Balance 480 ml 1055 ml Free Water 300 ml 280 ml IV Total 55 ml Tube Feeding 480 ml 720 ml Output Urine Total 300 ml # Bowel Movements 1 2 Laboratory Tests Test 03/05/19 03:15 White Blood Count 9.5 K/UL (4.8-10.8) Red Blood Count 2.72 M/UL (4.20-5.40) L Hemoglobin 8.7 G/DL (12.0-16.0) L Hematocrit 28.6 % (37.0-47.0) L Mean Corpuscular Volume 105 FL (80-99) H Mean Corpuscular Hemoglobin 32.0 PG (27.0-31.0) H Mean Corpuscular Hemoglobin Concent 30.4 G/DL (32.0-36.0) L Red Cell Distribution Width 16.2 % (11.6-14.8) H Platelet Count 164 K/UL (150-450) Mean Platelet Volume 9.5 FL (6.5-10.1) Neutrophils (%) (Auto) 65.5 % (45.0-75.0) Lymphocytes (%) (Auto) 26.5 % (20.0-45.0) Monocytes (%) (Auto) 7.1 % (1.0-10.0) Eosinophils (%) (Auto) 0.3 % (0.0-3.0) Basophils (%) (Auto) 0.6 % (0.0-2.0) Sodium Level 149 MMOL/L (136-145) H Potassium Level 4.1 MMOL/L (3.5-5.1) Chloride Level 112 MMOL/L (98-107) H Carbon Dioxide Level 27 MMOL/L (21-32) Anion Gap 10 mmol/L (5-15) Blood Urea Nitrogen 22 mg/dL (7-18) H Creatinine 1.4 MG/DL (0.55-1.30) H Estimat Glomerular Filtration Rate mL/min (>60) Glucose Level 136 MG/DL (74-106) H Calcium Level 9.1 MG/DL (8.5-10.1) Height (Feet): 5 Height (Inches): 8.00 Weight (Pounds): 176 General Appearance: WD/WN, no apparent distress, alert Cardiovascular: normal rate Respiratory/Chest: normal breath sounds, no respiratory distress Abdominal Exam: normal bowel sounds, non tender, soft, GT site - c/d/i Extremities: non-tender Etienne Patricia NP Mar 05, 2019 10:42
--- NOTE | 2019-03-05 11:39 | NUR ---
RD ASSESSMENT & RECOMMENDATIONS SEE CARE ACTIVITY FOR COMPLETE ASSESSMENT DAILY ESTIMATED NEEDS: Needs based on pulmonary, sepsis, DM, 67.5kg abw 25-30 kcals/kg 9259-7841 total kcals 1-2 g protein/kg 68-135 g total protein 25-30 mL/kg 1435-7362 total fluid mLs NUTRITION DIAGNOSIS: 1) Swallowing difficulty R/T dysphagia as evidenced by pt is GT dep, now s/p intubation. 2) Altered nutrition related lab values R/T sepsis, critical care, DM, as evidenced by critically elev Na (164-> 149), elev BUN(90-> 22) down), elev creat (2.2-> 1.4), elev BGs (400's-> POC glu now in the 100's), Uglu 4+ on adm, elev wbc, now wnl, now afebrile, now off pressor support CURRENT TF:Glucerna 1.2 @ 60ml x 20 hrs ENTERAL NUTRITION RECOMMENDATIONS: Glucerna 1.2 @ 60ml/hr x24 hrs to provide 1440ml, 1728kcal, 86g prot, 1159ml free water - Rec TF to run x 24 hrs to meet est kcal/prot needs - Flush per MD/ HOB over 30 degrees ADDITIONAL RECOMMENDATIONS: 1) Calibrated bedscale wt (fluctuating daily wts per EMR) 2) Check lytes daily, replete as needed (check f/up mag level) 3) Eron 1pkt BID for skin integrity 4) Monitor BGs closely -> improved at this time 5) Consider lipid lowering agent (triglycerides >600) . .
[2019-03-05 12:00] VITALS: BP 100/58
--- NOTE | 2019-03-05 13:02 | Infectious Diseases Prog Note ---
Assessment/Plan Assessment/Plan Assessment: Septic Shock, SP- likely 2ry to PNA -03/04 CXR: Possible small left pleural effusion. Improved vascular congestion -03/01 CXR: * Interval removal of endotracheal tube. Worsening of aeration with increased haziness of the pulmonary vascularity suggesting development of mild interstitial edema/fluid overload. Bibasilar airspace opacities also increased which may be related to worsening subsegmental atelectasis or worsening pneumonia. Correlate clinically. Small left pleural effusion is suggested. -KUB: Fecal impaction distal sigmoid/rectum. -02/25 CXR: Development of lower lobe infiltrates. Correlate clinically for pneumonia -CXR:Endotracheal tube 2.8 cm above the ludwig in good position. Mild cardiomegaly. Mild right upper lobe interstitial prominence. -CT head: No acute intracranial process. Involutional changes with small vessel disease. Moderate ethmoid sinus mucosal thickening and fluid. Small fluid level in the right sphenoid sinus. -u/a wbc 5-10, nit neg, leuk +1; ucx Neg -02/23 Bcx Neg; 02/25 Bcx NTD -sp cx ESBL E.coli, MRSA, P.stuarti (S Ceftriaxone, Ertapenem, Zosyn) -2d Echo: no vegetations -legionella ag urine neg Acute respiratory failure s/p intubation 02/23- s/p extubated 03/01 Fever; SP Leukocytosis; SP Lactic acidosis; SP NAOMY on CKD Hypernatremia hx of MRSA bacteremia 11/2018 -TTE no vegetation hx of ESBL E.coli UTI 11/2018 HTN Dm2 CHF COPD dysphagia s/p GT HLD OA advanced Dementia non verbal SNF resident Plan: -Switch Meropenem #/ to Ertpenem for ESBL PNA -Cont IV Vancomycin #11/ for MRSA PNA -/ SP Doxycycline #6 -8/7 SP Amikacin #4 -8/6 SP IV Vancomycin #4 -8/4 SP Zosyn #2 -8/ SP Cefepime x1, Flagyl x1 -f/u cx -Monitor CBC/BMP, temperatures -Cdiff if diarrhea Thank you for this consultation. Will continue to follow along with you. Discussed with RN. Subjective Allergies: Coded Allergies: SULFA (SULFONAMIDE ANTIBIOTICS) (Unverified Allergy, Unknown, 09/30/18) COPIED FROM UNCODED Uncoded Allergies: SULFA (Allergy, Unknown, 11/20/18) Subjective afebrile no leukocytosis at RA Objective Vital Signs Last 24 Hour Vital Signs Date Time Temp Pulse Resp B/P (MAP) Pulse Ox O2 Delivery O2 Flow Rate FiO2 03/05/19 12:00 Room Air Room Air 03/05/19 11:45 91 03/05/19 11:00 100 20 100 Room Air 03/05/19 10:56 94 20 97 Room Air 03/05/19 08:00 98.3 89 21 108/50 (69) 98 03/05/19 08:00 Room Air Room Air 03/05/19 07:58 100 03/05/19 07:19 102 20 98 Room Air 03/05/19 07:16 98 20 97 Room Air 03/05/19 04:00 98.0 104 24 113/55 (74) 95 03/05/19 04:00 Room Air Room Air 03/05/19 04:00 98 03/05/19 03:00 Room Air 03/05/19 03:00 Room Air 21 03/05/19 00:00 97.5 107 24 120/50 (73) 96 03/05/19 00:00 96 03/05/19 00:00 Room Air Room Air 03/04/19 22:14 95 22 98 Room Air 03/04/19 22:09 92 22 96 Room Air 21 03/04/19 20:00 Room Air Room Air 03/04/19 20:00 102 03/04/19 20:00 97.9 106 24 129/52 (77) 95 03/04/19 19:10 108 22 98 Room Air 21 03/04/19 19:01 90 20 95 Room Air 03/04/19 16:00 Room Air Room Air 03/04/19 16:00 98.2 98 18 100/71 (81) 95 03/04/19 15:44 91 03/04/19 15:10 104 21 97 Room Air 03/04/19 14:59 102 22 94 Room Air 21 Height (Feet): 5 Height (Inches): 8.00 Weight (Pounds): 176 Objective General Appearance: lethargic, moderate distress Lines, tubes and drains: peripheral, central line, gtube HEENT: normocephalic, atraumatic, anicteric, mucous membranes moist, PERRL, EOMI, pharynx normal, supple, no JVD Neck: non-tender, normal alignment, supple, normal inspection Respiratory/Chest: accessory muscle use, crackles/rales, rhonchi - bilaterally , rhonchi - left Cardiovascular/Chest: normal peripheral pulses, regular rhythm, tachycardia Abdomen: normal bowel sounds, non tender, soft, no organomegaly, no mass Extremities: normal range of motion, non-tender, normal inspection, no calf tenderness, normal capillary refill, non-pitting Skin Exam: normal pigmentation, warm/dry, cyanotic Neurologic: sensory deficit, unresponsiveness Laboratory Tests Test 03/05/19 03:15 White Blood Count 9.5 K/UL (4.8-10.8) Red Blood Count 2.72 M/UL (4.20-5.40) L Hemoglobin 8.7 G/DL (12.0-16.0) L Hematocrit 28.6 % (37.0-47.0) L Mean Corpuscular Volume 105 FL (80-99) H Mean Corpuscular Hemoglobin 32.0 PG (27.0-31.0) H Mean Corpuscular Hemoglobin Concent 30.4 G/DL (32.0-36.0) L Red Cell Distribution Width 16.2 % (11.6-14.8) H Platelet Count 164 K/UL (150-450) Mean Platelet Volume 9.5 FL (6.5-10.1) Neutrophils (%) (Auto) 65.5 % (45.0-75.0) Lymphocytes (%) (Auto) 26.5 % (20.0-45.0) Monocytes (%) (Auto) 7.1 % (1.0-10.0) Eosinophils (%) (Auto) 0.3 % (0.0-3.0) Basophils (%) (Auto) 0.6 % (0.0-2.0) Sodium Level 149 MMOL/L (136-145) H Potassium Level 4.1 MMOL/L (3.5-5.1) Chloride Level 112 MMOL/L (98-107) H Carbon Dioxide Level 27 MMOL/L (21-32) Anion Gap 10 mmol/L (5-15) Blood Urea Nitrogen 22 mg/dL (7-18) H Creatinine 1.4 MG/DL (0.55-1.30) H Estimat Glomerular Filtration Rate mL/min (>60) Glucose Level 136 MG/DL (74-106) H Calcium Level 9.1 MG/DL (8.5-10.1) Current Medications Medications (Trade) Dose Ordered Sig/Chandu Route PRN Reason Start Time Stop Time Status Last Admin Dose Admin Acetaminophen (Tylenol) 650 mg Q4H PRN GT Temp > 100.5 03/02/19 11:58 04/01/19 11:57 Albuterol/ Ipratropium (Albuterol/ Ipratropium) 3 ml Q4HRT HHN 03/02/19 15:00 03/14/19 16:00 03/05/19 10:55 Ascorbic Acid (Vitamin C) 500 mg DAILY GT 03/03/19 09:00 03/26/19 08:59 03/05/19 09:09 Atorvastatin Calcium (Lipitor) 10 mg BEDTIME GT 03/02/19 21:00 03/25/19 20:59 03/04/19 20:29 Bethanechol Chloride (Urecholine) 5 mg THREE TIMES A DAY GT 03/02/19 13:00 03/25/19 17:59 03/05/19 09:10 Dextrose (Dextrose 50%) 25 ml Q30M PRN IV Hypoglycemia 03/02/19 12:15 03/25/19 11:44 Dextrose (Dextrose 50%) 50 ml Q30M PRN IV Hypoglycemia 03/02/19 12:15 03/25/19 11:44 Insulin Aspart (NovoLOG) Q6HR SUBQ 03/02/19 18:00 03/25/19 15:29 03/05/19 12:28 Memantine (Namenda) 10 mg Q12HR GT 03/02/19 21:00 03/25/19 20:59 03/05/19 09:09 Meropenem 1 gm/ Sodium Chloride 55 ml @ 110 mls/hr Q12HR@0600,1800 IVPB 03/02/19 18:00 03/05/19 23:00 03/05/19 06:40 Metoclopramide HCl (Reglan) 5 mg Q6H PRN IVP Nausea & Vomiting 03/02/19 11:59 04/01/19 11:58 Mineral Oil (Mineral Oil) 30 ml DAILYPRN PRN GT Constipation 03/02/19 11:59 04/01/19 11:58 Multivitamins (Multivitamins W/ Minerals 15ml Liquid) 15 ml DAILY GT 03/03/19 09:00 03/26/19 08:59 03/05/19 09:09 Pantoprazole (Protonix) 40 mg DAILY IVP 03/03/19 09:00 03/26/19 08:59 03/05/19 09:09 Polyethylene Glycol (Miralax) 17 gm DAILYPRN PRN GT Constipation 03/02/19 11:59 04/01/19 11:58 Vancomycin HCl (Vanco rx to dose) 1 ea DAILY PRN MISC Per rx protocol 03/03/19 09:00 03/29/19 19:29 Vancomycin HCl 1.25 gm/Sodium Chloride 275 ml @ 183.33 mls/ hr Q48H IVPB 03/03/19 21:00 03/08/19 20:59 03/03/19 20:48 Frances Chavarria M.D. Mar 05, 2019 13:02
--- NOTE | 2019-03-05 13:32 | NUR ---
DISCHARGE PLANNING DISCHARGE ORDER NOTED Patient has been accepted to; [facility] [address] [place] [address] Bed: Room 19-Bed 1 Skilled [phone] for Nurse to Nurse report [facility] ETA for transportation: 14:30
--- NOTE | 2019-03-05 14:25 | NUR ---
NURSE NOTES: Called [facility] and gave report to Emeli DUNCAN.
--- NOTE | 2019-03-05 15:45 | NUR ---
Discharge: Patient is being discharged to [facility] SNF from medical care. Awake, alert and oriented x1 (to herself). All medical devices such as IV, campus monitor and ID band were removed. Patient wheeled out via [facility] with all personal belongings.
[2019-03-05] MEDS ORDERED: Ertapenem 1 GM in NS 55 ML IVPB SCH (18:00)
--- NOTE | 2019-03-06 07:07 | Discharge Summary ---
Discharge Summary Discharge Summary _ DATE OF ADMISSION: 02/23/2019 DATE OF DISCHARGE: 03/05/2019 DISCHARGED BY: REASON FOR ADMISSION: 84 years old female with past medical history of diabetes mellitus type 2, hypertension, congestive heart failure, dysphagia , G-tube feeding, dementia, was brought by EMS from the senior living [facility] for fever and altered mental status. Patient was noted to be hypotensive by EMS and was started on the IV fluids. Upon evaluation she was febrile, tachycardic, hypotensive, and hypoxic. Patient was obtunded. Patient required emergency oral intubation in ED as well as a placement of central line. Laboratory work-up revealed significant leukocytosis WBC 19.1. Hemoglobin 10.3 , hematocrit 35.3. Sodium 169, potassium 3.2. BUN 121, creatinine 2.3. Glucose 426. Lactic acid 2.4. Calcium 7.9, phosphorus 1.8, magnesium 4.1. Stable LFT and lipase. Troponin 0.093. pro BNP 540. EKG revealed sinus tachycardia, no acute ischemic changes. Albumin 2.3. Chest x-ray demonstrated good position of endotracheal tube, mild cardiomegaly and right upper lobe interstitial prominence. CT of the head demonstrated no acute intracranial pathology. Evidence of small vessel disease., In emergency department patient pancultured , started on empiric antibiotics , IV fluids and admitted to ICU for further management CONSULTANTS: forestry pilot dr. Peterson pulmonary Dr. Nelson ID specialist Dr. Chavarria GI specialist Dr. Rutledge resource economist Dr.De Goodman [facility] COURSE: Patient admitted to ICU. Ventilator support and pulmonary toilet provided. Patient started on the IV fluids and empiric antibiotics. Patient initially required Levophed for hemodynamic support. Hemodynamic status was closely monitored with goal to keep mean arterial blood pressure above 65. Blood sugar was managed with sliding scale of insulin. Patient was eventually was able to be weaned from pressor. Second troponin within normal limits -0.016. EKG revealed no acute ischemic changes. Echocardiogram demonstrated preserved ejection fraction of 65% with no evidence of wall motion abnormality. Mild left ventricular hypertrophy. Right ventricular systolic pressure of 11. Venous duplex bilateral lower extremity revealed no evidence of acute DVT. Antibiotic provided as per ID specialist recommendation. Blood cultures were negative. Sputum culture revealed Providencia, E. coli ESBL and Staphylococci aureus. Urine culture revealed no evidence of growth. Repeated blood culture were negative. Leukocytosis and fevers resolved. Lactic acidosis resolved. Patient with history of MRSA bacteremia in November 2018. TTE revealed no evidence of vegetation. Patient with known history of ESBL UTI in November 2018 , status post treatment. Antibiotic regimen optimized as per ID specialist recommendation. Patient will need to complete antibiotic at the facility as per ID specialist recommendation. As patient clinically improved, she was able to be extubated. Patient was followed-up with the chest x-ray. Supplemental oxygen titrated to keep pulse oximetry above 92%. Pulmonary toilet via handheld nebulizing therapy with bronchodilator provided. Prior to discharge pulse oximetry was stable on room air. Potato Peeler followed. Renal parameters and electrolytes were closely monitored. Electrolytes corrected as needed , and nephrotoxins were avoided. Free water increased via G-tube. Prior to discharge sodium from 169 down to 149. BUN from 122 down to 22 and creatinine from 2.3 down to 1.4. According to resource economist , patient had chronic kidney disease stage 3B with creatinine baseline between 1.3-1.4. Acute renal failure resolved and was likely due to dehydration. Strict aspiration precautions were maintained. G-tube feeding was continued as tolerated. Tube feeding formula and protein supplements implemented in plan of care as per energy and sustainability manager recommendation. Abdominal x-ray revealed fecal impaction in distal sigmoid/rectum. Bowel regimen instituted. Fecal impaction not resolved with enema and bowel regimen . Patient required manual disimpaction by surgeon. Patient was further continued with meticulous bowel regimen. Follow-up KUB showed decreased stool in the rectum compared to prior. Supportive care provided. GI prophylaxis provided. Hemoglobin and hematocrit were closely monitored with goal to keep hemoglobin above 7. Prior to discharge hemoglobin 8.7, hematocrit 28.6. Blood sugar was managed with sliding scale of insulin. Hemoglobin A1c 8.3 not at goal. Patient will need further optimization of anti-glycemic regimen as outpatient. Statin continued. DVT prophylaxis with SCD provided. Patient clinically stabilized and was ready for transfer to senior living facility for continuation of care FINAL DIAGNOSES: Severe sepsis likely due to pneumonia Septic shock resolved Pneumonia Acute respiratory failure requiring intubation, status post extubation Acute renal failure likely due to dehydration on chronic kidney disease stage 3B. Dehydration Hypernatremia Diabetes mellitus Dysphagia , G-tube feeding Advanced dementia CHF COPD Fecal impaction Anemia DISCHARGE MEDICATIONS: See Medication Reconciliation list. DISCHARGE INSTRUCTIONS: Patient was discharged to the senior living facility. Follow up with medical doctor at the facility. I have been assigned to dictate discharge summary for this account. I was not involved in the patient's management. Gema Mack NP Mar 06, 2019 07:06
--- NOTE | 2019-03-06 15:33 | NUR ---
*-* INSURANCE *--* ALL CLINICALS AND REVIEWS HAVE BEEN FAXED TO: BRENNA: KIANA P:[phone] FAX: [phone] (FAX CLINICALS)
== END 2019-03-05 15:45 | DRG 870 ==
LOC: EDBD 07:32 → EMR 08:11 → EDBEDREQ 08:41 → ICU 09:56 → EDBEDREQ 10:00 → 2W 03-02 11:39
PROC: 0BH18EZ Insertion of Endotracheal Airway into Trachea, Via Natural or Artificial Opening Endoscopic (ICD-10-PCS; principal; 2019-02-23)
PROC: 5A1955Z Respiratory Ventilation, Greater than 96 Consecutive Hours (ICD-10-PCS; principal; 2019-02-23)
PROC: 05HM33Z Insertion of Infusion Device into Right Internal Jugular Vein, Percutaneous Approach (ICD-10-PCS; principal; 2019-02-23)
DX: A41.9 Sepsis, unspecified organism (principal); J96.00 Acute respiratory failure, unspecified whether with hypoxia or hypercapnia; J15.212 Pneumonia due to Methicillin resistant Staphylococcus aureus; N17.0 Acute kidney failure with tubular necrosis; R65.21 Severe sepsis with septic shock; E87.0 Hyperosmolality and hypernatremia; N39.0 Urinary tract infection, site not specified; I13.0 Hypertensive heart and chronic kidney disease with heart failure and stage 1 through stage 4 chronic kidney disease, or unspecified chronic kidney disease; J44.0 Chronic obstructive pulmonary disease with (acute) lower respiratory infection; E46 Unspecified protein-calorie malnutrition; E86.0 Dehydration; K56.41 Fecal impaction; J32.2 Chronic ethmoidal sinusitis; E11.65 Type 2 diabetes mellitus with hyperglycemia; Z93.1 Gastrostomy status; F03.90 Unspecified dementia, unspecified severity, without behavioral disturbance, psychotic disturbance, mood disturbance, and anxiety; E83.39 Other disorders of phosphorus metabolism; R80.9 Proteinuria, unspecified; E66.9 Obesity, unspecified; Z68.26 Body mass index [BMI] 26.0-26.9, adult; I11.0 Hypertensive heart disease with heart failure; I50.9 Heart failure, unspecified; E11.22 Type 2 diabetes mellitus with diabetic chronic kidney disease; R13.10 Dysphagia, unspecified; D64.9 Anemia, unspecified; N18.3 Chronic kidney disease, stage 3 (moderate)
CPT/HCPCS: 31500; 36415; 36600; 70450; 71045; 74018; 80048; 80053; 80076; 80150; 80202; 81001; 81003; 82164; 82550; 82553; 82803; 82947; 82962; 83036; 83605; 83690; 83735; 83880; 84100; 84478; 84484; 85007; 85025; 87040; 87070; 87086; 87181; 87205; 93005; 93306; 93970; 94002; 94003; 94640; 94664; 96361; 96365; 96366; 96367; 99291; J1815; J3490; J7620